=== PATIENT | male | born 1955 | race Caucasian/White ===

== ENCOUNTER 2020-09-08 10:10 | Emergency (ER) | payer OTHER ==
[~2020-09-08] VITALS: Ht 172.7 cm; Wt 79.4 kg
[2020-09-08] MEDS ORDERED: ATOR1TAB21 (10:25)
[2020-09-08] MEDS ORDERED: GABA-282 (10:25)
[2020-09-08] MEDS ORDERED: OMEP-218 (10:25)
[2020-09-08] MEDS ORDERED: NS 1,000 ML IV SCH (10:35)
[2020-09-08 11:06] LABS: BASO % 0.1 % (0.0-1.0); EOS # 0.1 10^3/uL (0.0-0.5); EOS % 1.6 % (0.0-3.0); HEMOGLOBIN 16.9 g/dl (13.5-17.5); LYMPH % 13.3 % (24.0-44.0); MEAN CORPUSCULAR HEMOGLOBIN 31.1 pg (27.0-33.0); MEAN CORPUSCULAR HGB CONC 33.8 g/dl (32.0-36.5); MEAN CORPUSCULAR VOLUME 92.1 fl (80.0-96.0); MONO # 0.9 10^3/uL (0.0-0.8); MONO % 11.1 % (2.0-8.0); NEUTROPHILS # 5.6 10^3/uL (1.5-8.5); NEUTROPHILS % 73.2 % (36.0-66.0); PLATELET COUNT, AUTOMATED 198 10^3/uL (150-450); RED BLOOD COUNT 5.43 10^6/uL (4.30-6.10); WHITE BLOOD COUNT 7.7 10^3/uL (4.0-10.0)
[2020-09-08] MEDS ORDERED: ISOVUE-370 76% 100ML VIAL As Ordered ONE (11:22)
[2020-09-08 11:35] LABS: ALBUMIN 3.5 GM/DL (3.2-5.2); BILIRUBIN,DIRECT 0.2 MG/DL (0.0-0.2); BILIRUBIN,TOTAL 0.7 MG/DL (0.2-1.0); TOTAL PROTEIN 6.7 GM/DL (6.4-8.2)
--- NOTE | 2020-09-08 12:27 | REP ---
INDICATION: abd pain COMPARISON: None. TECHNIQUE: CT Scan of the abdomen and pelvis was performed with intravenous administration of 100 cc of Isovue 370, without oral contrast. Sagittal and coronal reconstruction images are performed. FINDINGS: Lung bases: There is no acute infiltrate. Several small bullae are seen inferiorly in the right lung. There is a small hiatal hernia. Liver: There is a solid mass in the right lobe of the liver anteriorly measuring 3.7 cm in diameter. Gallbladder: Unremarkable. Spleen: Normal. Adrenals: There is non-specific thickening of the bilateral adrenal glands diffusely. Pancreas: Normal. Kidneys: Normal. Small and large bowel: Unremarkable. Free fluid: None. Abdominal aorta: No aneurysm or dissection. Adenopathy: There is a solid mass in the gastrohepatic ligament measuring approximately 5.1 x 4.2 cm. There is an aortocaval lymph node just inferior to that 1.2 cm in short axis. Appendix: Not inflamed. Osseous structures: There are degenerative changes of the spine without compression deformity. Pelvis: No mass. Small bilateral inguinal hernias contain noninflamed fat. IMPRESSION: There is a solid mass in the gastrohepatic ligament measuring approximately 5.1 x 4.2 cm. There is an aortocaval lymph node just inferior to that 1.2 cm in short axis. Solid mass right lobe of liver 3.7 cm. Non-specific thickening of the bilateral adrenal glands diffusely. <Electronically signed by Joe Tomlin > 09/08/20 [id number]
[2020-09-08 13:52] LABS: RSV AMPLIFICATION NEGATIVE (NEGATIVE)
[2020-09-08 14:00] VITALS: BP 128/88
--- NOTE | 2020-09-08 21:23 | ECGEPIP ---
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
== END 2020-09-08 14:19 | disposition short-term general hospital (02) ==
LOC: M ED 10:10
DX: K76.89 Other specified diseases of liver (principal); R19.07 Generalized intra-abdominal and pelvic swelling, mass and lump; K44.9 Diaphragmatic hernia without obstruction or gangrene; E78.5 Hyperlipidemia, unspecified; F17.200 Nicotine dependence, unspecified, uncomplicated; Z79.899 Other long term (current) drug therapy
CPT/HCPCS: 36415; 74177; 80047; 80076; 83605; 83690; 85025; 87631; 93005; 93041; 96360; 96361; 99285; Q9967

== ENCOUNTER → 2020-09-22 | Outpatient (CLI) | payer OTHER ==
[~2020-09-22] MED LIST: ATOR1TAB21 PO; CLOT10TR PO; GABA-282 PO; LOPE1CAP5 PO; MAPA500L PO; OMEP-218 PO; ONDA-83 PO; OXYC1SOL3 PO; PANT40TA29 PO
--- NOTE | 2020-09-22 10:51 | RADONC.CN ---
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 He is seen today for consideration of palliative RT to his large primary tumor and associated regional nodes which are causing pain and dysphagia. Diagnosis/Treatment History Oncologic History Patient noted difficulty swallowing starting in May 2020 Had a delayed outpatient workup. Developed left facial numbness in July 2020. 09/08/20 presented to [facility] ED. CT abdomen showed celiac adenopathy. He was transferred to [facility]. 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 He had a PEG tube placed. 09/21/20 Underwent GammaKnife SRS @ [facility]. Has follow up with Dr. Ordaz there for this and his left facial numbness Recent data: 09/10/20 CT chest abdomen pelvis Large mediastinal adenopathy. Large distal esophageal mass. Large gastrohepatic ligament john mass. Single segment 7 liver lesion. No bone metastases. 09/11/20 MRI brain Multiple subcentimeter brain metastases Left trigeminal meningioma v schwannoma Interval History Reba reports he is able to take soft foods and liquids PO. He is supplementing with TF QID. Weight and energy levels have stabilized. He has back pain, new since this started in May. Is is in the mid-lower back, intermittent, sharp worse with certain movements. Liquid oxycodone is helpful for this. He also has left facial numbness over the past 2 months, was told by PCP he had shingles, no rash however. Dr. Ordaz neurosurgery @ [facility] is following this, as there is a left trigeminal lesion which resembles a meningioma or schwannoma. Past Medical History: HPL Past Surgical History: As above Family History: Father penile cancer Sister breast cancer Social History: 50 pack year former smoker (recent quit) Non-drinker Allergies / Meds Allergies: Coded Allergies: No Known Allergies (Verified Allergy, Unknown, 09/08/20) Home Meds Active Scripts Oxycodone HCl (Oxycodone HCl) 5 Mg/5 Ml Solution, 5 ML PO Q6HP PRN for PAIN LEVEL 5-10 MDD 20 Milliliter(s), #400 ML Prov:ANA LAURA MAYA MD 09/20/20 Reported Medications Acetaminophen (Mapap) 500 Mg/15 Ml Liquid, 15 ML PO Q4HP 09/20/20 Ondansetron HCl (Ondansetron HCl) 4 Mg Tablet, 1 TAB PO Q4HP PRN for nausea/vomiting for 3 Days, #20 TAB 09/20/20 Clotrimazole (Clotrimazole) 10 Mg Anu, 1 TAB PO 5XD for 14 Days, #70 TAB 09/20/20 Pantoprazole Sodium (Pantoprazole Sodium) 40 Mg Tablet.dr, 1 TAB PO BID for 30 Days, #30 TAB 09/20/20 Loperamide HCl (Loperamide) 2 Mg Capsule, 1 CAP PO QID for loose stools for 5 Days, #20 CAP 09/20/20 Gabapentin (Gabapentin) 300 Mg Capsule, 1 TAB PO TID 09/08/20 Omeprazole (Omeprazole) 20 Mg Capsule.dr, 1 TAB PO DAILY 09/08/20 Atorvastatin Calcium (Atorvastatin Calcium) 20 Mg Tablet, 1 TAB PO DAILY 09/08/20 Review of Systems Constitutional: Reports: Fatigue, Weight Loss; Denies: Fever, Weakness Eyes: Denies: Pain HEENT: Reports: Other Symptoms (Left facial numbness); Denies: Head Aches Skin: Denies: Rash Pulmonary: Denies: Dyspnea, Cough Cardiovascular: Denies: Chest Pain, Palpitations Gastrointestinal: Denies: Abdominal Pain, Diarrhea, Constipation, Hematochezia Hematologic: Denies: Bruising, Bleeding Excessively Musculoskeletal: Reports: Back pain; Denies: Neck pain Neurological: Denies: Weakness, Numbness Psych: Reports: Mood Normal; Denies: Thoughts of Self Harm Vital Signs Ht 68" T 97 P 66 RR 18 BP 145/84 O2 99% Pain 0 Fatigue 1 General Exam: Positive: Alert, Cooperative, No Acute Distress Eye Exam: Positive: PERRLA, EOMI ENT EXAM: Positive: Mucous membr. moist/pink, Pharynx Normal Neck Exam: Negative: Thyromegaly, Lymphadenopathy Chest Exam: Positive: Normal air movement; Negative: Rales, Rhonchi, Wheezing Heart Exam: Positive: Rate Normal, Regular Rhythm Abdomen Exam: Positive: Soft, Other (PEG CDI); Negative: Tenderness, Mass Extremity Exam: Negative: Edema, Tenderness Skin Exam: Positive: Nl turgor and temperature; Negative: Rash Neuro Exam: Positive: Normal Gait, Normal Speech; Negative: Cranial Nerves 3-12 NL (Left partial V palsy. Jaw opening closing without deviation contralaterally) Psych Exam: Positive: Mental status NL Diagnostic and Laboratory Diagnostic Review Radiologic images, relevant labs and pathology reports were personally reviewed and discussed with Mr. Mae. Assessment and Plan Impression Mr. Mae is a 64 year old male with a history of former smoker with Davis's esophagus, now with esophageal adenocarcinoma [id number] stage IVB. He is seen today for consideration of palliative RT to his large primary tumor and associated regional nodes which are causing pain and dysphagia. Stage Distal esophageal adenocarcinoma [id number] Stage IVB Performance Status ECOG 0 Plan We had an extensive discussion with Mr. Mae regarding the diagnosis at hand and available therapeutic options. The bulk of his metastatic disease is localized in the central chest and upper abdomen. He has dysphagia and pain from the primary and john masses there. He will be undergoing chemotherapy with Dr. Maya, port placement and the start of treatment is pending. I recommended palliative RT to the chest, I will give 35-40 Gy in 15 fractions with DCA planning and daily CBCT for localization. This will be a large field but with DCA planning we will be able to spare significant dose to the lung, heart and abdominal organs. I discussed that this is highly likely to palliate his pain and dysphagia at the cost of transient moderate dysphagia and odynophagia from ensuing esophagitis. He is willing to accept this risk for the longer term benefits. We discussed the logistics of receiving radiation therapy in detail including the need for a 1-time planning session. I would like this to occur urgently in the next few days, so as to start and complete the bulk of treatment without overlapping with systemic therapy which will potentiate the esophagitis. We reviewed potential toxicities including fatigue, esophagitis, pneumonitis, late stricture and fibrosis. After discussing the risks, benefits and alternatives to radiation therapy, Mr. Mae was amenable to pursuing radiotherapy. All questions were answered to the patient's satisfaction. We instructed the patient that if there were any questions,concerns or changes in clinical status in the interim to contact us. Recommendations Palliative RT 35-40 Gy in 15 fractions with DCA planning and daily CBCT Simulation in the next few days Chemotherapy per Dr. Maya F/u of brain metastases/left trigeminal lesion per [facility] Billing Statement Total time of [46] minutes was spent preparing for the visit [3], obtaining HPI [4], examining the patient [4], reviewing diagnostic tests [8], discussing management options [16], coordinating care [2], and writing this note [9]. IOANA MIMS MD Sep 22, 2020 10:51
== END ==
LOC: M ONCR 08:52
PROVIDERS: ATTEND General Practice
DX: 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, unspecified (principal); C79.31 Secondary malignant neoplasm of brain; E78.5 Hyperlipidemia, unspecified; G50.9 Disorder of trigeminal nerve, unspecified; M54.5 Low back pain; Z72.0 Tobacco use; Z79.899 Other long term (current) drug therapy; Z80.3 Family history of malignant neoplasm of breast; Z80.49 Family history of malignant neoplasm of other genital organs

== ENCOUNTER → 2020-09-30 | Outpatient (CLI) | payer MEDICARE, OTHER ==
[~2020-09-30] MED LIST changes: +COMMENTS; +DEXA2TA PO; +DEXA4TA PO; +ELIQ5TAB PO; +FENT12DI8 TOP; +FENT1PAT25 TOP; +GABA250S6 TF; +LOPE-39 PO; +LORA2CON5 PO; +LORA2CON5 TF; +MUCI1LIQ3 PO; +NYST50SS PO; +OLAN1TAB16 PO; +OMEP-173 PO; +OMEP-173 TF; -OMEP-218 PO; +ONDA4TAB6 PO; +POTA-151 PO; +POTA20EL PO; +PROC10TA5 PO; +SERT-141 PO; +SODI1TAB12 PO; +ZOFR4TAB16 PO; +ZOLP10TA2 PO
== END ==
LOC: M RAD 16:11
PROVIDERS: ATTEND Neurological Surgery
DX: R20.2 Paresthesia of skin (principal)

== ENCOUNTER 2020-10-01 13:48 | Emergency (ER) | payer MEDICARE, OTHER ==
[~2020-10-01] VITALS: Ht 172.7 cm; Wt 76.4 kg
[~2020-10-01 13:48] MED LIST changes: -COMMENTS; -DEXA2TA PO; -DEXA4TA PO; -ELIQ5TAB PO; -FENT12DI8 TOP; -FENT1PAT25 TOP; -GABA250S6 TF; -LOPE-39 PO; -LORA2CON5 PO; -LORA2CON5 TF; -MUCI1LIQ3 PO; -NYST50SS PO; -OLAN1TAB16 PO; -OMEP-173 PO; -OMEP-173 TF; +OMEP-218 PO; -ONDA4TAB6 PO; -POTA-151 PO; -POTA20EL PO; -PROC10TA5 PO; -SERT-141 PO; -SODI1TAB12 PO; -ZOFR4TAB16 PO; -ZOLP10TA2 PO
[2020-10-01] MEDS ORDERED: PROPARACAINE 0.5% OPHTH SOL 15ML XX ONE (14:05)
[2020-10-01] MEDS ORDERED: FLUORESCEIN OPHTH 1 MG STRIP XX ONE (14:05)
[2020-10-01 20:10] VITALS: BP 138/77
== END 2020-10-01 20:30 | disposition left against medical advice (07) ==
LOC: M ED 13:48
DX: H53.8 Other visual disturbances (principal); E78.5 Hyperlipidemia, unspecified; Z79.891 Long term (current) use of opiate analgesic; Z79.899 Other long term (current) drug therapy; Z53.20 Procedure and treatment not carried out because of patient's decision for unspecified reasons; Z93.1 Gastrostomy status

== ENCOUNTER → 2020-10-05 | Outpatient (CLI) | payer OTHER ==
[~2020-10-05] MED LIST changes: +LIDOCAINE 1% MDV 20ML VIAL As Ordered ONE; +MIDAZOLAM INJ 2MG/2ML VIAL (J2250 PER 1MG) As Ordered ONE; +NS 1,000 ML IV SCH; +ceFAZolin 2 GM/D5W 50 ML IV BAG (J0690 PER 500MG) As Ordered ONE; +ceFAZolin SOD 2 GM in IV 1 EA IV ONE; +diphenhydrAMINE 50MG/ML VIAL (J1200) As Ordered ONE; +fentaNYL 100 MCG/2 ML INJECTION (J3010) As Ordered ONE
[2020-10-05 16:00] VITALS: BP 118/78
--- NOTE | 2020-10-06 08:23 | IRHP ---
[facility] IR Pre-Procedure H & P General Date of Service: Oct 05, 2020 Procedure: Same Day Surgery Interval History and Physical I have seen the patient and reviewed last H & P performed within 30 days. There is no significant interval change. History of Present Illness Chief Complaint The patient is a 64-year-old male admitted with a reason for visit of Liver Lesion. PRE-PROCEDURE DIAGNOSIS: Esophageal cancer HEART: Normal rate. LUNGS: Normal breathing at rest. ASA Classification ASA Classification: III-Severe systemic dis. Mallampati Score: II NPO: Yes Problems with prior sedation: No Obstructive Sleep Apnea: No Plan moderate sedation Allergies Coded Allergies: No Known Allergies (Verified Allergy, Unknown, 09/08/20) Home Medications Scheduled Acetaminophen (Mapap), 15 ML PO Q4HP, (Reported) Scheduled PRN Ondansetron HCl (Ondansetron HCl), 1 TAB PO Q4HP PRN for nausea/vomiting, (Reported) Oxycodone HCl (Oxycodone HCl), 5 ML PO Q6HP PRN for PAIN LEVEL 5-10 Discontinued Medications Atorvastatin Calcium (Atorvastatin Calcium), 1 TAB PO DAILY, (Reported) Discontinued Reason: Pt states not taking Clotrimazole (Clotrimazole), 1 TAB PO 5XD, (Reported) Discontinued Reason: Pt states not taking Gabapentin (Gabapentin), 1 TAB PO TID, (Reported) Discontinued Reason: Pt states not taking Loperamide HCl (Loperamide), 1 CAP PO QID, (Reported) Discontinued Reason: Pt states not taking Omeprazole (Omeprazole), 1 TAB PO DAILY, (Reported) Discontinued Reason: Pt states not taking Pantoprazole Sodium (Pantoprazole Sodium), 1 TAB PO BID, (Reported) Discontinued Reason: Pt states not taking VS, I&O, 24H, Fishbone Vital Signs/I&O Vital Signs Date Time Temp Pulse Resp B/P (MAP) Pulse Ox O2 Delivery O2 Flow Rate FiO2 10/05/20 16:00 72 20 98 Room Air TIANNA ZHONG MD Oct 06, 2020 08:23
--- NOTE | 2020-10-10 14:49 | IRPON ---
IR Postoperative Note Date Of Procedure: Oct 05, 2020 Time Of Procedure: 16:00 IR Postoperative Note IR Ultrasound and fluoroscopy guided port placement. IR Ultrasound of the neck. IR Moderate sedation. Clinical indication: Esophageal cancer. Physician: Dr. Lewis. Procedure: The patient was advised of the benefits, risks, and alternatives of the procedure and informed consent was obtained. A time-out was performed with verification of the patient's name, MRN, site of procedure and type of procedure to be performed. The patient was positioned in the supine position on the angiographic table. The site was prepped and draped in the usual sterile fashion. Moderate sedation was performed by the physician including the presence of an independent trained RN who assisted and monitored the patient's level of consciousness and physiologic status. Following the administration of fentanyl and Versed , the physician spent 45 minutes of continuous face to face time with the patient. Ultrasound of the neck reveals a patent and compressible right internal jugular vein. A slab lifting engineer radiograph reveals no gross abnormality. The neck and anterior chest wall were anesthetized with lidocaine. The right internal jugular vein was accessed using a microintroducer needle under ultrasound guidance, via a lateral approach. An 018 wire was advanced into the superior vena cava, the needle was removed and a microsheath was placed. An Amplatz wire was then passed into the inferior vena cava. An incision at the internal jugular vein access site and anterior chest wall were made using a scalpel. An incision was made at the anterior chest wall. A small pocket was created using a combination of blunt and sharp dissection. A tunneling device was then used to pass the catheter from the pocket to the neck puncture site. An 8- [place] Angio Platypus TV Smart power port was then positioned in the pocket. The catheter was then measured and cut. The introducer sheath was exchanged for a peel-away sheath. The catheter was passed through the peel-away sheath into the internal jugular vein and the peel-away sheath was removed. The port tip was positioned at the cavoatrial junction. The port was then accessed with a Duff needle. The port flushes and aspirates well. The puncture site in the neck was closed. The chest wall incision was then closed with 2-0 Vicryl and 4-0 Monocryl. Glue and Steri- Strips were applied. A sterile dressing was then applied. The patient tolerated the procedure well and was returned to the PRU in stable condition. Estimated blood loss: <5 ml. Complications: None. Conclusion: 1. Successful placement of an 8-[place]yr[place]z Angio dynamics Smart power port via the right internal jugular vein. The port is ready for immediate use. 2. Patient to follow up in IR clinic in 2 weeks. Thank you for this referral. TIANNA LEWIS MD Oct 10, 2020 14:49
== END ==
LOC: M IRPRO 12:21
PROVIDERS: ATTEND Radiology Diagnostic Radiology
DX: 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, unspecified (principal); K76.89 Other specified diseases of liver
CPT/HCPCS: 36561; 99152; 99153; C1769; C1788; C1894; J0690; J1200; J1642; J1644; J2250; J3010

== ENCOUNTER 2020-10-14 18:27 | Emergency (ER) | payer OTHER ==
[~2020-10-14] VITALS: Ht 172.7 cm; Wt 73.6 kg
[2020-10-14 18:27] VITALS: BP 113/71
[~2020-10-14 18:27] MED LIST changes: -LIDOCAINE 1% MDV 20ML VIAL As Ordered ONE; -MIDAZOLAM INJ 2MG/2ML VIAL (J2250 PER 1MG) As Ordered ONE; -NS 1,000 ML IV SCH; -ceFAZolin 2 GM/D5W 50 ML IV BAG (J0690 PER 500MG) As Ordered ONE; -ceFAZolin SOD 2 GM in IV 1 EA IV ONE; -diphenhydrAMINE 50MG/ML VIAL (J1200) As Ordered ONE; -fentaNYL 100 MCG/2 ML INJECTION (J3010) As Ordered ONE
[2020-10-14] MEDS ORDERED: FENT12DI8 (18:58)
[2020-10-14] MEDS ORDERED: GABA250S6 (18:58)
[2020-10-14 23:01] LABS: BASO % 0.2 % (0.0-1.0); EOS # 0.2 10^3/uL (0.0-0.5); EOS % 2.5 % (0.0-3.0); HEMATOCRIT 39.5 % (42.0-52.0); HEMOGLOBIN 13.9 g/dl (13.5-17.5); LYMPH # 0.5 10^3/uL (1.5-5.0); LYMPH % 5.2 % (24.0-44.0); MEAN CORPUSCULAR HGB CONC 35.2 g/dl (32.0-36.5); MEAN CORPUSCULAR VOLUME 90.8 fl (80.0-96.0); MONO # 0.7 10^3/uL (0.0-0.8); MONO % 6.9 % (2.0-8.0); NEUTROPHILS % 84.2 % (36.0-66.0); PLATELET COUNT, AUTOMATED 184 10^3/uL (150-450); RED BLOOD COUNT 4.35 10^6/uL (4.30-6.10); WHITE BLOOD COUNT 9.4 10^3/uL (4.0-10.0)
--- NOTE | 2020-10-14 23:24 | REPVR ---
PROCEDURE INFORMATION: Exam: XR Chest Exam date and time: 10/14/2020 10:20 PM Age: 65 years old Clinical indication: Other: Hemoptysis TECHNIQUE: Imaging protocol: XR of the chest. Views: 2 views. COMPARISON: CT CHEST W/ CONTRAST - OUTSIDE PRIOR 09/10/2020 2:43 PM FINDINGS: Tubes, catheters and devices: Right internal jugular Port-A-Cath to the mid superior vena cava since the prior study. Lungs: Unremarkable. No consolidation. Pleural spaces: Unremarkable. No pleural effusion. No pneumothorax. Heart/Mediastinum: Unremarkable. No cardiomegaly. Bones/joints: Unremarkable. IMPRESSION: 1. Right internal jugular Port-A-Cath to the mid superior vena cava since 09/10/2020. 2. Otherwise negative chest. Electronically signed by: Calixto Blum On 10/14/2020 23:24:04 PM
[2020-10-14 23:31] LABS: BLOOD UREA NITROGEN 8 MG/DL (7-18); CALCIUM LEVEL 8.9 MG/DL (8.8-10.2); CARBON DIOXIDE LEVEL 24 MEQ/L (21-32); CHLORIDE LEVEL 96 MEQ/L (98-107); CREATININE FOR GFR 0.46 MG/DL (0.70-1.30); GLOMERULAR FILTRATION RATE > 60.0 (>49); GLUCOSE, FASTING 107 MG/DL (70-100); POTASSIUM SERUM 4.2 MEQ/L (3.5-5.1); SODIUM LEVEL 130 MEQ/L (136-145)
== END 2020-10-15 00:15 | disposition home or self-care (01) ==
LOC: M ED 18:27
DX: R04.2 Hemoptysis (principal); J02.9 Acute pharyngitis, unspecified; 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, unspecified; Z93.1 Gastrostomy status; Z79.899 Other long term (current) drug therapy

== ENCOUNTER 2020-10-20 09:14 | Outpatient (RCR) | payer MEDICARE, OTHER ==
[~2020-10-20 09:14] MED LIST changes: +FENT12DI8; +GABA250S6
[2020-10-24] MEDS ORDERED: OXYC1SOL3 PO (10:04)
== END 2020-10-22 ==
LOC: M ONCR 09:14
PROVIDERS: ATTEND General Practice
DX: C15.5 Malignant neoplasm of lower third of esophagus (principal)

== ENCOUNTER 2020-10-31 09:22 | Outpatient (RCR) | payer MEDICARE, OTHER ==
[~2020-10-31 09:22] MED LIST changes: -FENT12DI8; +FENT12DI8 TOP; -GABA250S6; +GABA250S6 TF
[2020-10-31 11:05] LABS: BASO % 0.3 % (0.0-1.0); EOS # 0.2 10^3/uL (0.0-0.5); EOS % 2.7 % (0.0-3.0); HEMATOCRIT 38.8 % (42.0-52.0); HEMOGLOBIN 13.3 g/dl (13.5-17.5); LYMPH # 0.2 10^3/uL (1.5-5.0); LYMPH % 2.7 % (24.0-44.0); MEAN CORPUSCULAR HGB CONC 34.3 g/dl (32.0-36.5); MEAN CORPUSCULAR VOLUME 93.3 fl (80.0-96.0); MONO # 0.8 10^3/uL (0.0-0.8); MONO % 11.9 % (2.0-8.0); NEUTROPHILS # 5.1 10^3/uL (1.5-8.5); PLATELET COUNT, AUTOMATED 111 10^3/uL (150-450); RED BLOOD COUNT 4.16 10^6/uL (4.30-6.10); WHITE BLOOD COUNT 6.3 10^3/uL (4.0-10.0)
[2020-10-31 11:40] LABS: BLOOD UREA NITROGEN 8 MG/DL (7-18); CREATININE FOR GFR 0.48 MG/DL (0.70-1.30); GLUCOSE, FASTING 101 MG/DL (70-100)
[2020-10-31 11:41] LABS: ALT/SGPT 21 U/L (12-78); BILIRUBIN,TOTAL 0.8 MG/DL (0.2-1.0); CALCIUM LEVEL 8.5 MG/DL (8.8-10.2); CARBON DIOXIDE LEVEL 29 MEQ/L (21-32); CHLORIDE LEVEL 96 MEQ/L (98-107); FREE T4 1.31 NG/DL (0.76-1.46); GLOMERULAR FILTRATION RATE > 60.0 (>49); POTASSIUM SERUM 4.2 MEQ/L (3.5-5.1); SODIUM LEVEL 131 MEQ/L (136-145); THYROID STIMULATING HORMONE 0.394 uIU/ML (0.358-3.740); TOTAL PROTEIN 6.2 GM/DL (6.4-8.2)
[2020-11-02] MEDS ORDERED: ZOFR4TAB16 PO (15:04)
[2020-11-02] MEDS ORDERED: PROC10TA5 PO (15:04)
[2020-11-22] MEDS ORDERED: FENT1PAT25 TOP (10:58)
[2020-11-22] MEDS ORDERED: ZOLP10TA2 PO (10:58)
[2020-11-23] MEDS ORDERED: OMEP-218 PO (13:53)
[2020-11-23] MEDS ORDERED: DEXA4TA PO (13:54)
[2020-12-01] MEDS ORDERED: SERT-141 PO (09:42)
[2020-12-01] MEDS ORDERED: LORA2CON5 PO (09:42)
[2020-12-06] MEDS ORDERED: POTA-151 PO (16:14)
[2020-12-09] MEDS ORDERED: OLAN1TAB16 PO (11:06)
[2020-12-26] MEDS ORDERED: DEXA4TA PO (10:48)
[2020-12-27] MEDS ORDERED: NYST50SS PO (08:33)
[2020-12-27] MEDS ORDERED: DEXA2TA PO (08:33)
[2021-01-02] MEDS ORDERED: LORA2CON5 PO (09:27)
[2021-01-03] MEDS ORDERED: OXYC1SOL3 PO (16:03)
[2021-01-05] MEDS ORDERED: PROC10TA5 PO (14:44)
[2021-01-09] MEDS ORDERED: OLAN1TAB16 PO (10:36)
== END 2020-11-22 ==
LOC: M ONCR 09:22
PROVIDERS: ATTEND General Practice
DX: C15.5 Malignant neoplasm of lower third of esophagus (principal); R10.11 Right upper quadrant pain; Z79.899 Other long term (current) drug therapy

== ENCOUNTER → 2020-11-15 | Outpatient (CLI) | payer MEDICARE, OTHER ==
[~2020-11-15] MED LIST changes: +DEXA4TA PO; +FENT50DI5; +PROC10TA4 PO; +PROHANCE 279.3MG/ML 15ML VIAL As Ordered ONE; +ZOFR4TAB16 PO; +ZOLP10TA2
--- NOTE | 2020-11-22 13:12 | REPVR ---
PROCEDURE INFORMATION: Exam: MR Head Without and With Contrast Exam date and time: 11/15/2020 4:13 PM Age: 65 years old Clinical indication: Condition or disease; Brain lesion; Patient HX: Esophageal CA, ? mets to cavernous sinus; Additional info: Secondary malignant neoplasm of brain TECHNIQUE: Imaging protocol: MR of the head without and with intravenous contrast. Contrast material: PROHANCE; Contrast volume: 13 ml; Contrast route: INTRAVENOUS (IV); COMPARISON: No relevant prior studies available. FINDINGS: Brain: There are multiple lesions within the supratentorial and infratentorial brain. There are cystic nonenhancing lesions. There are also enhancing lesions present. There is left cavernous sinus lesion extending over free margin of tentorium into the prepontine space along cisternal course trigeminal nerve. There are several enhancing cerebellar parenchymal lesions including two in anterior inferior aspect of right cerebellar hemisphere measuring approximately 2 mm and one in inferior posteromedial aspect of left cerebellar hemisphere measuring 5 mm. The left cerebellar lesion previously measured 1.7 mm. The 2 right cerebellar lesions were not previously identified. There was a more posteroinferior right cerebellar punctate enhancing lesion on prior study which currently shows a nodular area of increased signal on the T2 weighted images but no longer shows contrast enhancement. The left posteroinferior cerebellar cystic nonenhancing lesion is larger measuring 6 mm and previously 4 mm. There is a small area of increased T2 and FLAIR signal in the region of the right superior vermis which shows restricted diffusion. There is subtle contrast enhancement in this location which may actually be extra-axial within sulci along the surface of the superior vermis and related to subarachnoid tumor. The left cavernous sinus lesion as increased in size. Cavernous portion currently measures 16 mm x 11 mm and previously 13 mm x 8 mm. This extends inferiorly toward foramen ovale as well as into the posterior aspect of foramen rotundum concerning for perineural extension of tumor. The superior inferior dimension on coronal images has significantly increased previously 9 mm and currently 23 mm. The portion within the prepontine cistern currently measures 18 mm x 13.5 mm and previously 11 mm x 7 mm. This extends to the nerve root entry zone of the anterior wilfredo. There is associated mass effect on anterolateral aspect of left side of wilfredo. There is T2 prolongation again seen along anterior right parietal sulcus and there is linear enhancement extending from the sulcus to the ependymal margin of the right lateral ventricle and this may be subarachnoid tumor extending along a perivascular space. There is a new area of T2 prolongation along the posteromedial aspect of the right central sulcus without evidence of definite abnormal enhancement. There is a cystic lesion in the left superior precentral region slightly increase in size measuring 5.4 mm and previously 4.4 mm. This previously showed a punctate area of enhancement which is no longer appreciated. There is a punctate enhancing lesion again seen in left frontal lobe at level of frontal horn of lateral ventricles which is slightly smaller than comparison study. On coronal postcontrast images, there is concern for new enhancement around the patient's optic chiasm which also could suggest subarachnoid disease. There is also evidence of probable subtle enhancement in several posterior fossa and supratentorial sulci and along the surface of the cerebellar hemispheres also concerning for subarachnoid extension. Patient previously showed enhancing lesion; There are several areas of additional restricted diffusion within the brain bilaterally. These include small right anterior frontal, right frontal parietal region in area of new T2 prolongation, right parietal sulcus, and left occipital lobe. This could be restricted diffusion associated with small areas of acute infarct and given proximity to subarachnoid disease, this could be tumor related. Cerebral ventricles: No hydrocephalus. Bones/joints: There is low signal in partially visualized C3 vertebral body and bony metastatic disease not excluded. Paranasal sinuses: Normal as visualized. No acute sinusitis. Mastoid air cells: No significant mastoid effusion. IMPRESSION: Progression of metastatic disease as described. 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 Several new areas of restricted diffusion may be acute infarcts associated with leptomeningeal disease. Electronically signed by: Colleen Avendaño On 11/22/2020 13:12:14 PM
== END ==
LOC: M RAD 14:01
PROVIDERS: ATTEND Radiology Radiation Oncology
DX: C79.31 Secondary malignant neoplasm of brain (principal)

== ENCOUNTER 2020-12-05 11:02 | Observation (INO) | payer MEDICARE, OTHER ==
[~2020-12-05] VITALS: Ht 172.7 cm; Wt 61.6 kg
[~2020-12-05 11:02] MED LIST changes: -FENT50DI5; +FENT50DI5 TOP; +LORA2CON5 PO; -PROHANCE 279.3MG/ML 15ML VIAL As Ordered ONE; +SERT-141 PO; +SODIUM CHLORIDE 0.9% INJ 10 ML SYR IV SCH; -ZOLP10TA2; +ZOLP10TA2 PO
[2020-12-05] MEDS ORDERED: NS 1,000 ML IV ONE (13:15)
[2020-12-05 13:23] LABS: BASO % 0.3 % (0.0-1.0); EOS # 0.1 10^3/uL (0.0-0.5); EOS % 1.4 % (0.0-3.0); HEMATOCRIT 33.6 % (42.0-52.0); HEMOGLOBIN 11.6 g/dl (13.5-17.5); LYMPH # 0.8 10^3/uL (1.5-5.0); MEAN CORPUSCULAR HGB CONC 34.5 g/dl (32.0-36.5); MEAN CORPUSCULAR VOLUME 95.5 fl (80.0-96.0); MONO # 0.9 10^3/uL (0.0-0.8); MONO % 13.1 % (2.0-8.0); NEUTROPHILS # 5.2 10^3/uL (1.5-8.5); NEUTROPHILS % 72.2 % (36.0-66.0); PLATELET COUNT, AUTOMATED 146 10^3/uL (150-450); RED BLOOD COUNT 3.52 10^6/uL (4.30-6.10); WHITE BLOOD COUNT 7.1 10^3/uL (4.0-10.0)
--- NOTE | 2020-12-05 13:31 | REP ---
INDICATION: Syncope/near-syncope. COMPARISON: 10/14/2020 the only prior TECHNIQUE: Portable FINDINGS: The tip of the MediPort device is unchanged remaining in the superior vena cava. Lung torres are clear and stable. No acute patchy parenchymal opacities or pleural effusions have developed. The cardiomediastinal silhouette is unchanged and again seen to be within normal limits. The osseous structures are stable and intact. The technique utilized in obtaining the radiograph has magnified the cardiac silhouette and attenuated the interstitial markings. IMPRESSION: No acute cardiopulmonary disease or significant change compared to the prior exam. <Electronically signed by Eric Byrd > 12/05/20 [id number]
[2020-12-05 13:52] LABS: ALT/SGPT 24 U/L (12-78); BLOOD UREA NITROGEN 11 MG/DL (7-18); CALCIUM LEVEL 8.7 MG/DL (8.8-10.2); CARBON DIOXIDE LEVEL 26 MEQ/L (21-32); CHLORIDE LEVEL 95 MEQ/L (98-107); GLOMERULAR FILTRATION RATE > 60.0 (>49); GLUCOSE, FASTING 91 MG/DL (70-100); POTASSIUM SERUM 4.1 MEQ/L (3.5-5.1); SODIUM LEVEL 130 MEQ/L (136-145)
[2020-12-05 13:53] LABS: ALBUMIN 2.8 GM/DL (3.2-5.2); BILIRUBIN,DIRECT 0.3 MG/DL (0.0-0.2); BILIRUBIN,TOTAL 0.8 MG/DL (0.2-1.0); CK-MB VALUE MASS < 1.0 NG/ML (<3.6); CPK CREATINE PHOSPHOKINASE 28 U/L (39-308); FREE T4 1.28 NG/DL (0.76-1.46); MAGNESIUM LEVEL 2.1 MG/DL (1.8-2.4); MB/CK RELATIVE INDEX 3.57 (< OR =4); THYROID STIMULATING HORMONE 0.654 uIU/ML (0.358-3.740); TOTAL PROTEIN 5.9 GM/DL (6.4-8.2); TROPONIN I < 0.02 NG/ML (< 0.10)
[2020-12-05] MEDS ORDERED: dexameTHASONE 20MG/5ML VIAL (J1100 PER 1MG) IV ONE (15:55)
[2020-12-05] MEDS ORDERED: diazePAM 2 MG TAB PEG ONE (15:55)
[2020-12-05 15:57] LABS: RSV AMPLIFICATION NEGATIVE (NEGATIVE)
[2020-12-05] MEDS ORDERED: oxyCODONE 5MG TAB PEG PRN (16:00)
[2020-12-05] MEDS ORDERED: ONDANSETRON 4MG/2ML VIAL IV PRN (16:00)
[2020-12-05] MEDS ORDERED: COMMENTS (16:40)
[2020-12-05] MEDS ORDERED: OMEP-218 TF (16:40)
[2020-12-05] MEDS ORDERED: ZOLP10TA2 PO (16:40)
[2020-12-05] MEDS ORDERED: HOME MED LIST COMPLETE! XX SCH (16:45)
[2020-12-05] MEDS: D5W/0.9% SODIUM CHLORIDE 1,000 ML IV SCH (16:54)
[2020-12-05] MEDS ORDERED: PILL CUTTER 1 EACH XX ONE (17:16)
--- NOTE | 2020-12-05 19:47 | ECGEPIP ---
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
[2020-12-05] MEDS ORDERED: fentaNYL 50 MCG/HR PATCH TOP SCH (20:00)
[2020-12-05] MEDS ORDERED: FENTANYL REMOVAL DOCUMENTATION MISC XX SCH (20:00)
[2020-12-05 20:27] VITALS: BP 125/81
[2020-12-05] MEDS ORDERED: GABAPENTIN 100 MG CAP PEG SCH (21:00)
[2020-12-06] MEDS: D5W/0.9% SODIUM CHLORIDE 1,000 ML IV SCH ×2 (05:24→11:55)
[2020-12-06 06:00] VITALS: BP 137/78
[2020-12-06 06:34] LABS: HEMATOCRIT 35.8 % (42.0-52.0); HEMOGLOBIN 12.4 g/dl (13.5-17.5); MEAN CORPUSCULAR HEMOGLOBIN 33.1 pg (27.0-33.0); MEAN CORPUSCULAR HGB CONC 34.6 g/dl (32.0-36.5); MEAN CORPUSCULAR VOLUME 95.5 fl (80.0-96.0); PLATELET COUNT, AUTOMATED 166 10^3/uL (150-450); RED BLOOD COUNT 3.75 10^6/uL (4.30-6.10); WHITE BLOOD COUNT 6.9 10^3/uL (4.0-10.0)
[2020-12-06 06:58] LABS: BLOOD UREA NITROGEN 9 MG/DL (7-18); CALCIUM LEVEL 8.9 MG/DL (8.8-10.2); CARBON DIOXIDE LEVEL 23 MEQ/L (21-32); CHLORIDE LEVEL 100 MEQ/L (98-107); CREATININE FOR GFR 0.61 MG/DL (0.70-1.30); GLOMERULAR FILTRATION RATE > 60.0 (>49); GLUCOSE, FASTING 125 MG/DL (70-100); POTASSIUM SERUM 3.4 MEQ/L (3.5-5.1); SODIUM LEVEL 132 MEQ/L (136-145)
[2020-12-06] MEDS: SODIUM CHLORIDE 0.9% INJ 10 ML SYR IV SCH ×2 (08:39→09:00)
[2020-12-06] MEDS ORDERED: SERTRALINE HCL 50 MG TAB PEG SCH (09:00)
[2020-12-06] MEDS ORDERED: ENOXAPARIN 40MG/0.4ML SYRINGE (J1650 PER 10MG) SC SCH (09:00)
[2020-12-06] MEDS ORDERED: OMEPRAZOLE SUSPENSION 20MG 10ML ORAL SYRINGE GT SCH (09:00)
--- NOTE | 2020-12-06 09:18 | HPE ---
HISTORY AND PHYSICAL DATE OF ADMISSION: 12/05/2020 PRINCIPAL DIAGNOSIS: Intractable vertigo, brain metastases. 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 The tumor is PD-L1 positive, HER-2/nick negative. He follows with Dr. Tia Barreto. 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 He is scheduled to complete his radiation therapy this week. He was previously treated with FOLFOX chemotherapy with nivolumab currently on hold. MEDICAL HISTORY: His past history shows GERD. SURGICAL HISTORY: PEG tube. FAMILY HISTORY: Sister with breast cancer. Father had penile cancer. SOCIAL HISTORY: Smoked up until diagnosis 09/12/2020, about a 50 pack year history. No alcohol use. He is , two adult children. REVIEW OF SYSTEMS: He has been dizzy, weak and lightheaded. No fevers or chills, night sweats, headache, photophobia. MEDICATIONS: 1. Sertraline 50 mg daily. 2. Ativan 2 mg/mL, 0.25 mL four times daily as needed for anxiety. 3. Dexamethasone 4 mg daily. 4. Omeprazole 20 mg daily. 5. Phenergan 10 mg daily. 6. Zofran 4 mg or 8 mg every 12 hours as needed for nausea. 7. Oxycodone 5 mg/5 mL, 5 mg every 6 hours as needed. 8. Gabapentin 250 mg per feeding tube once daily at bedtime. 9. Fentanyl 50 mcg per 72 hour patch every 3 days. ALLERGIES: None known. PHYSICAL EXAMINATION: VITAL SIGNS: Per flow sheet. He was reportedly orthostatic in the Emergency Room. It looks like he was 79/51 standing, 99/65 supine, pulse in the 70s, 99% O2 saturation. GENERAL APPEARANCE: He looks moderately ill and older than stated age. HEENT: Pupils equal, round, reactive to light. Tympanic membranes (TMs) and oropharynx benign. NECK: No masses. LUNGS: Clear. HEART: Regular rate and rhythm. ABDOMEN: Soft, nontender. He has a feeding tube in. EXTREMITIES: No clubbing, cyanosis, or edema. Coordination is decreased with [id number] testing left worse than right. Normal strength in upper and lower extremities. I did not test his gait. He had nystagmus on the left. LABS: White count 7.1, hemoglobin 11.6, platelets 146. Sodium 130, potassium 4.1, BUN 11, creatinine 0.6, glucose 91. Thyroid functions are normal. It should be noted he has chronic hyponatremia probably from the Sertraline. His sodium generally is around 130 over the last three months. Chest x-ray showed no active disease. Did not do brain imaging. He had an MRI scan two weeks ago on 11/22. It showed progression of metastatic disease, a combination of parenchymal and subarachnoid tumor with leptomeningeal tumor dissemination with several areas restricted diffusion ____ acute infarcts associated with leptomeningeal disease. IMPRESSION AND PLAN: 1. Intractable vertigo. He has been given IV fluids. He already feels better. We will admit him on observation and rehydrate, give sedatives to reduce his vertigo. I would augment his dexamethasone in the face of suspected renal insufficiency. 2. Hyponatremia. This is chronic, asymptomatic and probably related to his SSRI therapy. 3. Esophageal cancer. Treatment per Dr. Barreto. 4. Brain metastases. He is due to have whole brain radiation tomorrow. We will consult Radiation Oncology so this can be continued. The patient reaffirmed FULL CODE STATUS to the ER staff today.
[2020-12-06 14:00] VITALS: BP 123/76
[2020-12-06] MEDS ORDERED: POTASSIUM CHLORIDE 10MEQ SR TABLET PO ONE (16:00)
[2020-12-06] MEDS ORDERED: ZOFR4TAB16 PO (16:13)
[2020-12-06] MEDS ORDERED: POTA20TA6 PO (16:14)
[2020-12-06] MEDS ORDERED: SODI1TAB12 PO (16:15)
[2020-12-06] MEDS ORDERED: POTA20EL PO (16:20)
--- NOTE | 2020-12-06 16:22 | DS.PDOC ---
Discharge Summary General Date of Admission Dec 05, 2020 at 11:03 Discharge Summary PROCEDURES PERFORMED DURING STAY: [None]. ADMITTING DIAGNOSES: 1. . DISCHARGE DIAGNOSES: 1. . COMPLICATIONS/CHIEF COMPLAINT: Brain Metastases,Vertigo. HISTORY OF PRESENT ILLNESS: . HOSPITAL COURSE: . DISCHARGE MEDICATIONS: Please see below. ALLERGIES: Please see below. PHYSICAL EXAMINATION ON DISCHARGE: VITAL SIGNS: Please see below. GENERAL: HEENT: NECK: CARDIOVASCULAR EXAMINATION: RESPIRATORY EXAMINATION: ABDOMINAL EXAMINATION: EXTREMITIES: SKIN: NEUROLOGICAL EXAMINATION: PSYCHIATRIC EXAMINATION: LABORATORY DATA: Please see below. IMAGING: PROGNOSIS: ACTIVITY: [As tolerated]. DIET: DISCHARGE PLAN: DISPOSITION: . DISCHARGE INSTRUCTIONS: 1. . ITEMS TO FOLLOWUP ON ON OUTPATIENT: 1. . DISCHARGE CONDITION: [Stable]. TIME SPENT ON DISCHARGE: minutes. Vital Signs/I&Os Vital Signs Date Time Temp Pulse Resp B/P (MAP) Pulse Ox O2 Delivery O2 Flow Rate FiO2 12/06/20 14:00 97.9 69 18 123/76 (92) 97 Room Air I&O- Last 24 Hours up to 6 AM 12/06/20 06:00 Intake Total 2300 ml Output Total 500 ml Balance 1800 ml Laboratory Data Labs 24H Laboratory Tests 2 12/06/20 06:12: Nucleated Red Blood Cells % (auto) 0.0, Anion Gap 9, Glomerular Filtration Rate > 60.0, Calcium Level 8.9 CBC/BMP Laboratory Tests 12/06/20 06:12 Discharge Medications Scheduled Dexamethasone (Dexamethasone) 4 Mg Tablet, 4 MG PO DAILY Gabapentin (Gabapentin) 250 Mg/5 Ml Solution, 5 ML TF QHS, (Reported) Omeprazole (Omeprazole) 20 Mg Capsule.dr, 20 MG TF QHS, (Reported) PUT CONTENTS OF CAPSULE IN APPLESAUCE Potassium Chloride (Potassium Chloride) 20 Meq/15 Ml Liquid, 15 ML PO BID Prochlorperazine Maleate (Prochlorperazine Maleate) 10 Mg Tablet, 10 MG PO Q6H Sertraline Hcl (Sertraline HCl) 50 Mg Tablet, 1 TAB PO DAILY Sodium Chloride (Sodium Chloride) 1 Gm Tablet, 1 TAB PO BID Zolpidem Tartrate (Zolpidem Tartrate) 10 Mg Tablet, 10 MG PO QHS, (Reported) fentaNYL (fentaNYL) 50 Mcg Patch.td72, 1 PATCH TOP Q3RD, (Reported) DOES NOT HAVE PATCH ON 12/05/20 Scheduled PRN Acetaminophen (Mapap) 500 Mg/15 Ml Liquid, 15 ML PO Q4H PRN for PAIN LEVEL 1-4, (Reported) Lorazepam (Lorazepam) 2 Mg/1 Ml Oral.conc, 0.25 ML PO QIDP PRN for ANXIETY/AGITA TION Ondansetron HCl (Zofran) 4 Mg Tablet, 8 MG PO Q12HP PRN for NAUSEA Ondansetron HCl (Zofran) 4 Mg Tablet, 4 MG PO Q6-8HP PRN for nausea/vomiting Oxycodone HCl (Oxycodone HCl) 5 Mg/5 Ml Solution, 5 ML PO Q6HP PRN for PAIN LEVEL 5-10 Miscellaneous Medications [Comments] , (Reported) PT HAS FEEDING TUBE. Allergies Coded Allergies: No Known Allergies (Verified Allergy, Unknown, 09/08/20) VEE CHUN MD Dec 06, 2020 16:22
[2020-12-06] MEDS ORDERED: POTASSIUM CHLORIDE 10% LIQ 20 MEQ/15 ML UDC PO ONE (16:50)
== END 2020-12-06 18:00 | disposition home health service (06) ==
LOC: M ED 11:02 → M ED INP 11:03 → ENRESERV 16:30 → M MSPAV 20:27
PROVIDERS: ADMIT Family Medicine; ATTEND Family Medicine
DX: R42 Dizziness and giddiness (principal); C79.31 Secondary malignant neoplasm of brain; C78.7 Secondary malignant neoplasm of liver and intrahepatic bile duct; 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, unspecified; E87.1 Hypo-osmolality and hyponatremia; Z92.3 Personal history of irradiation; Z92.21 Personal history of antineoplastic chemotherapy; Z87.891 Personal history of nicotine dependence; Z79.899 Other long term (current) drug therapy; K21.9 Gastro-esophageal reflux disease without esophagitis; Z93.1 Gastrostomy status
CPT/HCPCS: 36415; 71045; 80048; 80076; 82550; 82553; 83605; 83735; 84439; 84443; 84484; 85025; 85027; 87631; 93005; 93041; 94760; 96361; 96372; 96374; 96375; 97161; 97165; 97530; 99285; G0378; J1100; J1642; J1650; J2405

== ENCOUNTER → 2020-12-07 | Outpatient (CLI) | payer MEDICARE, OTHER ==
[~2020-12-07] MED LIST changes: +COMMENTS; +DEXA2TA PO; +NYST50SS PO; +OLAN1TAB16 PO; +OMEP-218 TF; +POTA20EL PO; +POTA20TA6 PO; +SODI1TAB12 PO; -SODIUM CHLORIDE 0.9% INJ 10 ML SYR IV SCH
== END ==
LOC: M ONCR 15:18
PROVIDERS: ATTEND General Practice
DX: C15.5 Malignant neoplasm of lower third of esophagus (principal); Z53.9 Procedure and treatment not carried out, unspecified reason

== ENCOUNTER 2020-12-13 08:38 | Outpatient (RCR) | payer MEDICARE, OTHER ==
--- NOTE | 2020-12-01 09:46 | RADENCPD ---
Date/Time of Encounter Date of Encounter: Dec 01, 2020 Time of Encounter: 09:43 Encounter Spoke to Reba today after RT. He is struggling with anxiety and low energy. His and he believe he is dehydrated. PO intake down recently. Same with per PEG intake. Cap refill delayed, skin lax. UOP reduced per . I will arrange for 2L NS IVF and 8 mg decadron today. I encouraged more frequent hydration at home PO and per PEG minimum 64 oz daily. They will try to get fluids in more effectively. For his anxiety I discussed starting an SSRI which he is agreeable to. In the short term I will also give a small dose of ativan which he can use QID as needed. Plan: IVF Decadron Sertraline 50 mg daily Lorazepam liquid 0.5 mg QID PRN Stop IOANA Gilbert MD Dec 01, 2020 09:46
[2020-12-01] MEDS: NS 1,000 ML IV SCH ×2 (10:02→11:52)
[~2020-12-13 08:38] MED LIST changes: -DEXA2TA PO; -NYST50SS PO; +ONDANSETRON 4 MG ORAL DISINTEGRATING TAB PO ONE; +dexameTHASONE 4 MG/ML 1ML VIAL (J1100 PER 1MG) IV ONE
== END 2020-12-22 ==
LOC: M ONCR 08:38
PROVIDERS: ATTEND General Practice
DX: C79.31 Secondary malignant neoplasm of brain (principal)
CPT/HCPCS: 77280; 77290; 77307; 77334; 77336; 77412; 77417; G0463; J1100

== ENCOUNTER → 2020-12-20 | Outpatient (CLI) | payer MEDICARE, OTHER ==
[~2020-12-20] MED LIST changes: -ONDANSETRON 4 MG ORAL DISINTEGRATING TAB PO ONE; -dexameTHASONE 4 MG/ML 1ML VIAL (J1100 PER 1MG) IV ONE
--- NOTE | 2020-12-20 15:03 | RADENCPD ---
Date/Time of Encounter Date of Encounter: Dec 20, 2020 Time of Encounter: 15:01 Encounter Reba came in for a brief follow up today to assess his progress s/p WBRT. He reports he is feeling better overall, less fatigued, no VERA, no N,V, no pain. Notes cranial neuropathies have stabilized. He is tolerating TF well. I discussed leaving him on the current 4 mg daily decadron and seeing him back in 2 weeks at which time if improvement continues, we can consider a slow taper. He will be restarting chemotherapy in the meantime. IOANA MIMS MD Dec 20, 2020 15:03
== END ==
LOC: M ONCR 14:39
PROVIDERS: ATTEND General Practice
DX: C15.5 Malignant neoplasm of lower third of esophagus (principal); Z92.3 Personal history of irradiation

== ENCOUNTER → 2020-12-27 | Outpatient (CLI) | payer MEDICARE, OTHER ==
[~2020-12-27] MED LIST changes: +DEXA2TA PO; +NYST50SS PO
== END ==
LOC: M ONCR 10:37
PROVIDERS: ATTEND General Practice
DX: C15.5 Malignant neoplasm of lower third of esophagus (principal); C78.7 Secondary malignant neoplasm of liver and intrahepatic bile duct; C79.31 Secondary malignant neoplasm of brain; R59.1 Generalized enlarged lymph nodes; Z92.21 Personal history of antineoplastic chemotherapy; Z92.3 Personal history of irradiation

== ENCOUNTER → 2021-01-03 | Outpatient (CLI) | payer MEDICARE, OTHER ==
[~2021-01-03] MED LIST changes: +ELIQ5TAB PO; +LOPE-39 PO; +LORA2CON5 TF; +MUCI1LIQ3 PO; +ONDA4TAB6 PO
--- NOTE | 2021-01-03 16:07 | RADENCPD ---
Date/Time of Encounter Date of Encounter: Jan 03, 2021 Time of Encounter: 16:04 Encounter Reba came in for a status check today. He reports he feels generally well except for diarrhea associated with tube feeds and mid back pain which is new in the past week. On exam he is alert and oriented. His BP is 86/54. O2 93% on RA He is non-tender to palpation in the mid back Assessment: Dehydration from GI loss and low intake Plan: 2L IVF tomorrow. Increase FWF with feeds, aim for 1L tonight. Will start Imodium 2 tabs after each diarrhea bout. Will increase short acting oxycodone to 15 mg QIDP for back pain. Continue decadron 2 mg daily. Will refer to [facility] for ON feeding supplies as he might benefit from continuous feeding QHS as he continues to lose weight. IOANA MIMS MD Jan 03, 2021 16:07
--- NOTE | 2021-01-05 11:02 | RADENCPD ---
Date/Time of Encounter Date of Encounter: Jan 05, 2021 Time of Encounter: 10:54 Encounter Christen called this AM to report that Reba had additional diarrhea and emesis last night. This AM his BP was 73/46, P 45, O2 80% on RA and he was lethargic. He received IVF 2L yesterday in clinic as well as aloxi. He has been using imodium with some positive effect. Because of the unstable vitals and ongoing GI loss, I have advised them to present to the ED for evaluation. Christen and Reba agreed to come in. IOANA MIMS MD Jan 05, 2021 11:02
== END ==
LOC: M ONCR 14:31
PROVIDERS: ATTEND General Practice
DX: E86.0 Dehydration (principal); C15.5 Malignant neoplasm of lower third of esophagus; R19.7 Diarrhea, unspecified; M54.6 Pain in thoracic spine

== ENCOUNTER 2021-01-05 11:14 | Inpatient (IN) | payer MEDICARE, OTHER ==
[~2021-01-05] VITALS: Ht 172.7 cm; Wt 59.4 kg
[~2021-01-05 11:14] MED LIST changes: +ASPIRIN 81MG ENTERIC TABLET PO SCH; -ELIQ5TAB PO; -LOPE-39 PO; -LORA2CON5 TF; -MUCI1LIQ3 PO; -ONDA4TAB6 PO
--- OUTSIDE RECORDS SUMMARY | 2021-01-05 11:20 | CCD | Summary of Care ---
Author Author [facility] Organization [facility] Address Unknown Phone Unavailable Care Team Providers Care Therapeutic Recreation Director Name Role Phone Andrew Wade MD, Rashaun Ayala PCP [phone] Reason for Visit * Reason Comments Follow-up Encounter Details Care Team Description Date Type Department Mix, Ken Tolentino MD [address] [place] [address] Brain metastases (Primary Dx) 11/22/2020 Telemedicine [facility] RADIATION ONCOLOGY [address] [facility] [address] [place] [address] Allergies No Known Active Allergiesdocumented as of this encounter (statuses as of 11/23/2020) Medications End Date Status Medication Sig Dispensed Refills Start Date Active Atorvastatin Calcium 20 Take 20 mg by 0 MG Oral Tablet (LIPITOR) mouth daily Active Gabapentin 300 MG Oral Take 300 mg 0 Capsule (NEURONTIN) by mouth Three times daily as needed Active Biofreeze 4 % External Apply 0 Gel (Menthol (Topical topically as Analgesic)) needed 09/14/2021 Active Pantoprazole Sodium 40 MG Take 1 tablet 60 tablet 11 Oral Tablet Delayed by mouth Two 1 Release (PROTONIX) Times Daily Active Gabapentin 250 MG/5ML Take by mouth 0 Oral Solution (NEURONTIN) Three times daily Active oxyCODONE HCl 5 MG/5ML Take by mouth 0 Oral Solution every 4 (ROXICODONE) (four) hours as needed for Pain Active fentaNYL Place 1 patch 0 onto the skin every 3 (three) days Active Zolpidem Tartrate 10 MG Take 10 mg by 0 Oral Tablet (AMBIEN) mouth nightly as needed for Sleep Active LORazepam 0.5 MG Oral Take 0.5 mg 0 Tablet (ATIVAN) by mouth every 6 (six) hours as needed for Anxiety documented as of this encounter (statuses as of 11/23/2020) Active Problems Problem Noted Date Malignant neoplasm of lower third of esophagus 09/28 Cancer Staging: Clinical: Stage IVB (cT 3, cN3, cM1) - Unsigned Numbness and tingling of left side of face Esophageal mass 09/13/2020 Gastric mass 09/08/2020 Liver mass 09/08/2020 Current smoker 09/08/2020 Unintentional weight loss 09/08/2020 Postherpetic neuralgia 09/08/2020 Intraabdominal mass 09/08/2020 Palliative care encounter Overview: Formatting of this note might be differ ent from the original. Decision making capacity: September 12, 2020 has capacity for medical decision making Goals of care: continue work up and nadya atment for cancer, all medical interventions Code status: full code, his family know s his wishes HCP: 09/12/2020 Primary: Winter, Secondary: daughter Caroline Solares, , son Alex Mae [phone] MOLST on file: no Short Social History: He lives with his , they have 1 son who lives with them and 1 daughter who resides ne ar them. He has several siblings, has 1 surviving sibling, others d. 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 Brain metastases Dysphagia documented as of this encounter (statuses as of 11/23/2020) Immunizations Name Administration Dates Next Due Pfizer SARS-CoV-2 06/14/2020, 05/24/2020 Vaccination documented as of this encounter Social History Date Tobacco Use Types Packs/Day Years Used Quit: 07/23/2020 Former Smoker Smokeless Tobacco: Never Used Comments Alcohol Use Standard Drinks/Week Not Currently 0 (1 standard drink = 0.6 o z pure alcohol) Sex Assigned at Date Recorded Not on file Industry Job Start Date Occupation Not on file Not on file Not on file documented as of this encounter Last Filed Vital Signs Reading Time Taken Comments Vital Sign 109/84 11/22/2020 8:54 AM EDT Blood Pressure 90 11/22/2020 8:54 AM EDT Pulse 35.8 C (96.4 F) 11/22/2020 8:54 AM EDT Temperature - - Respiratory Rate - - Oxygen Saturation - - Inhaled Oxygen Concentration 65.8 kg (145 lb) 11/22/2020 8:54 AM EDT Weight - - Height 22.05 09/21/2020 6:22 AM EDT Body Mass Index documented in this encounter Progress Notes * Ken Brooks MD - 11/22/2020 9:00 AM EDT Images from the original note were not included. This is a telephonic visit which was performed without the use of video technolo gy due to patient inability to connect with video. The patient was informed of t he risks including security breach, technological failure, inability to perform a physical exam which could delay or prevent an accurate diagnosis, and potentia l complications from treatment decisions rendered over a telephonic platform. Th e patient understands and consented to the use of a telephonic visit/telephone c all. Time spent on the telephonic visit today: 25 minutes Radiation Oncology Outpatient Follow-up Visit Report Subjective: Diagnosis and Stage: Stage IV esophageal cancer with brain metastases Prior Therapy: Gamma Knife SRS to 4 lesions on 09/21/20 Palliative RT to esophagus (Dr. Valladares in [place]) Recently started chemotherapy with Dr. Barreto Performance status: (2) Ambulatory and capable of self care, unable to carry ou t work activity, up and about > 50% or waking hours HPI: Reba is a 65 y/o male s/p GK SRS as noted above for marv metastases from es ophageal cancer. Has also received palliative esophageal RT, and started chemot herapy with Dr. Barreto. He returns today for short interval f/u after updated MRI. He denies VERA. Has h ad some occasional nausea. Did have a fall last week. Continues to have facial numbness. Medications: Current Outpatient Medications Medication Sig Dispense Refill fentaNYL Place 1 patch onto the skin every 3 (three) days Gabapentin 250 MG/5ML Oral Solution (NEURONTIN) Take by mouth Three times daily LORazepam 0.5 MG Oral Tablet (ATIVAN) Take 0.5 mg by mouth every 6 (six) hours as needed for Anxiety oxyCODONE HCl 5 MG/5ML Oral Solution (ROXICODONE) Take by mouth every 4 ( four) hours as needed for Pain Pantoprazole Sodium 40 MG Oral Tablet Delayed Release (PROTONIX) Take 1 t ablet by mouth Two Times Daily 60 tablet 11 Zolpidem Tartrate 10 MG Oral Tablet (AMBIEN) Take 10 mg by mouth nightly as needed for Sleep Atorvastatin Calcium 20 MG Oral Tablet (LIPITOR) Take 20 mg by mouth chucho y Biofreeze 4 % External Gel (Menthol (Topical Analgesic)) Apply topically as needed Gabapentin 300 MG Oral Capsule (NEURONTIN) Take 300 mg by mouth Three felix es daily as needed (Patient not taking: Reported on 10/21/2020) No current facility-administered medications for this visit. Allergies: Patient has no known allergies. Patient's medications, allergies, past medical, surgical, social and family hist ories were reviewed and updated as appropriate. Objective: Vitals - 1 value per visit 10/21/2020 11/09/2020 11/22/2020 SYSTOLIC - - 109 DIASTOLIC - - 84 PULSE - - 90 TEMPERATURE - - 96.4 RESPIRATIONS - - - Weight (kg) - 68.947 kg 65.772 kg HEIGHT - - - SPO2 - - - BODY MASS INDEX - 23.11 kg/m2 22.05 kg/m2 PAIN SCALE - SCORE 0 0 0 PAIN SCALE - LOCATION EYE - - Phone Exam - Limited No repiratory distress Speech fluent Psych: Mood, affect, train of thought unremarkable. Good insight. Interval Imaging Assessment & Plan: Reba is s/p GK SRS for 4 brain metastases - in the setting of stage IV esophageal cancer His updated MRI is consistent with intracranial progression. The lesion in the left cavernous sinus is consistent with a metastasis, and there are multiple pa renchymal lesions as well. Official report expresses concern for leptomeningeal dissemination. Additional gamma knife will not be appropriate, and WBRT likely represents the best palliative option at this point. I will speak to Dr. Ángela ford, his local radiation oncologist, and get him seen EMELY. I will follow with him on an as needed basis, moving forward. The plan of care for pain includes the following intervention(s): controlled wit h Rx medication I spent a total of 25 minutes today on the clinic visit, including preparation, patient evaluating/counseling, and documentation / coordination of care. Ken Brooks MD Building Construction Supervisor Radiation Oncology documented in this encounter Nursing Notes * Radha Loera, RN - 11/22/2020 9:00 AM EDT Called patient prior to telemedicine visit with Dr. Brooks. He reports no major cathy nges at this time. States he did have a fall a week ago when he lost his balance . He fell on his bottom and denies any injuries or LOC. Only complaint has been having anxiety for which he is now taking medication for. Also he reports being approved for medical marijuana. Patient/ are aware of upcoming appointment f or 0900. No questions or concerns at this time. documented in this encounter Plan of Treatment Care Team Description Date Type Specialty 01/20/2021 Office Visit Ophthalmology Health Maintenance Due Date Last Done Comments MMR Vaccines (1 of 1 - 10/09/1956 Standard series) Varicella Vaccines (1 of 10/09/1956 2 - 2-dose childhood series) Pneumococcal Vaccine: 65+ [birth year]09/1961 Years (1 of 4 - PCV13) Pneumococcal Vaccine: 10[birth year]09/1961 Pediatrics (0 to 5 Years) and At-Risk Patients (6 to 64 Years) (1 of 4 - PCV13) DTaP,Tdap,and Td Vaccines 10/09/1962 (1 - Tdap) Colon Cancer Screening 10 10/09/2005 yrs Zoster Vaccines (1 of 2) 10/09/2005 Influenza Vaccine 12/23/2020 12/14/2019 COVID-19 Vaccine Completed 06/14/2020, 05/24/2020 Hepatitis C Screening (B. Completed 09/08/2020, [id number]) 09/08/2020 HIB Vaccines Aged Out No longer eligible based on patient's age to complete this topic Hepatitis A Vaccines Aged Out No longer eligibl e based on patient's age to complete this topic Hepatitis B Vaccines Aged Out No longer eligibl e based on patient's age to complete this topic IPV Vaccines Aged Out No longer eligible based on patient's age to complete this topic documented as of this encounter Implants Device Identifier Shelf Expiration Date Model / Serial / L ot Implanted Type Area Manufactur er 05/18/2022 [id number] / / [id number] Gi- Saf-T-Pexy Fasteners - N/A: Stomach [employer]YARD [id number] Implanted: Qty: 1 on 09/13/2020 by Lowell Landers MD at [facility] 07/15/2023 [id number] / / [id number] Gi- Entuit G-Tube 18fr- Sbrd-1 - N/A: Stomach [employer] [id number] Implanted: Qty: 1 on 09/13/2020 by Lowell Landers MD at [facility] [id number] / [id number] / Prokera Plus-10/03/2020 Implanted: Qty: 1 on 10/03/2020 by Cassie Weathers MD Explanted: 10/07/2020 (Quantity not on file) documented as of this encounter Procedures Comments Procedure Name Priority Date/Time Associated Diag nosis RADIOLOGY REPORT 11/15/2020 1:44 PM EDT documented in this encounter Results * RADIOLOGY REPORT (11/15/2020 1:44 PM EDT) Narrative Performed At This result has an attachment that is n ot available. documented in this encounter Visit Diagnoses Diagnosis Brain metastases - Primary 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
--- OUTSIDE RECORDS SUMMARY | 2021-01-05 11:20 | CCD | Continuity of Care Document ---
Author Author Reba Morales MD Organization Unknown Address [address] [address] Phone [phone] Care Team Providers Care Book Binder Name Role Phone Rashaun Morales JR, MD AUTM Unavailable Problems Description No Information Available Social History Type Date Description Comments Sex Unknown ETOH Use Denies alcohol use Tobacco Use Start: Unknown Patient is a current smoker, smo kes every day smokes a pack a day Allergies, Adverse Reactions, Alerts Description No Known Drug Allergies Medications Active Medications SIG Qnty Indications Ordering Provide r Date No Active Medications Unknown History Medications Ondansetron 4mg Tablets Dispers place 1 tablet under the tongue every 4 hours as needed for nausea 60tabs Rashaun Morales MD 09/19/2020 - 10/05/2020 Tylenol Infants 160mg/5ML Suspensi on 15ml by mouth every night at bedtime and 15ml twice a day as needed 120ml Rashaun Morales MD 09/19/2020 - 09/19/2020 Acetaminophen 500mg Tablets 1 tab by mouth or via feeding tube every 4 hours as needed for pain [id number] 120tabs Rashaun Morales MD 09/19/2020 - 10/05/2020 Nystatin [id number] Suspension 5cc swish and swallow five times a day x 10 days 473ml CELESTINE Naranjo JR 08/23/2020 - 10/05/2020 Gabapentin 300mg Capsules 1 by mouth tid prn 90capCELESTINE Espinoza JR 021 - 10/05/[address] 1 by mouth every day 90capCELESTINE Espinoza JR 021 - 10/05/2020 Immunizations Description No Information Available Vital Signs Date Vital Result Comment 10/05/2020 9:39am BP Systolic 100 mmHg BP Diastolic 60 mmHg Heart Rate 62 /min Height 67.75 inches 5'7.75" 4 Weight 163.00 lb BMI (Body Mass Index) 25.0 kg/m2 08/18/2020 8:22am BP Systolic 138 mmHg BP Diastolic 82 mmHg Heart Rate 85 /min Height 67.75 inches 5'7.75" 4 Weight 188.00 lb BMI (Body Mass Index) 28.8 kg/m2 Results Test Acquired Date Facility Test Result H/L Range Note CBC With Differential 12/05/[address] [address] [phone] White Blood Count 7.1 10 Normal 4.0-10.0 Red Blood Count 3.52 10 Low 4.30-6.10 Hemoglobin 11.6 g/dL Low 13.5-17.5 Hematocrit 33.6 % Low 42.0-52.0 Mean Corpuscular Volume 95.5 fl Normal 80.0-96.0 Mean Corpuscular Hemoglobin 33.0 pg Normal 27.0-33.0 Mean Corpuscular HGB Conc 34.5 g/dL Normal 32.0-36.5 Red Cell Distribution Width 15.3 % High 11.5-14.5 Platelet Count, Automated 146 10 Low 150-450 Neutrophils % 72.2 % High 36.0-66.0 Lymph % 11.0 % Low 24.0-44.0 Charles [place] % 13.1 % High 2.0-8.0 Eos % 1.4 % Normal 0.0-3.0 Baso % 0.3 % Normal 0.0-1.0 Immature Granulocyte % 2.0 % Normal 0-3.0 Nucleated Red Blood Cell % 0.0 % Normal 0-0 Neutrophils # 5.2 10 Normal 1.5-8.5 Lymph # 0.8 10 Low 1.5-5.0 Charles [place] # 0.9 10 High 0.0-0.8 Eos # 0.1 10 Normal 0.0-0.5 Baso # 0.0 10 Normal 0.0-0.2 Influenza A/B RSV Covid Amp 12/05/[address] [id number] [phone] Influenza A Amplification NEGATIVE Normal Negati ve 1 Influenza B Amplification NEGATIVE Normal Negative 2 RSV Amplification NEGATIVE Normal Negative 3 Sars Covid-19 Amplification NEGATIVE Normal Negative 4 Laboratory test finding 12/05/2020 [place] [id number] [phone] Magnesium Level 2.1 mg/dL Normal 1.8-2.4 Thyroid Stimulating Hormone 0.654 uIU/ML Normal 0.358-3.740 Free T4 1.28 ng/dL Normal 0.76-1.46 Basic Metabolic Profile 12/05/[address] [address] [phone] Glucose, Fasting 91 mg/dL Normal 70-100 Blood Urea Nitrogen 11 mg/dL Normal 7-18 Creatinine For GFR 0.60 mg/dL Low 0.70-1.30 Glomerular Filtration Rate > 60.0 Normal >49 5 Sodium Level 130 mEq/L Low 136-145 Potassium Serum 4.1 mEq/L Normal 3.5-5.1 Chloride Level 95 mEq/L Low 98-107 Carbon Dioxide Level 26 mEq/L Normal 21-32 Anion Gap 9 mEq/L Normal 8-16 Calcium Level 8.7 mg/dL Low 8.8-10.2 Liver Profile 12/05/2020 [facility] [address] [place] [address] [phone] Ast/Sgot 24 U/L Normal 7-37 Alt/SGPT 24 U/L Normal 12-78 Alkaline Phosphatase 142 U/L High 45-117 Bilirubin,Total 0.8 mg/dL Normal 0.2-1.0 Bilirubin,Direct 0.3 mg/dL High 0.0-0.2 Total Protein 5.9 GM/DL Low 6.4-8.2 Albumin 2.8 GM/DL Low 3.2-5.2 Albumin/Globulin Ratio 0.9 Normal Cardiac Marker Panel 12/05/2020 [facility] [address] [place] [address] [phone] CPK Creatine Phosphokinase 28 U/L Low 39-30 8 CK-MB Value Mass < 1.0 NG/ML Normal <3.6 MB/CK Relative Index 3.57 Normal < Or =4 6 Troponin I < 0.02 NG/ML Normal < 0.10 7 Laboratory test finding 12/05/[address] [address] [phone] Lactic Acid Sepsis Protocol 1.1 mmol/L Normal 0.4- 2.0 8 CBC With Differential 11/22/[address] [address] [phone] White Blood Count 8.5 10 Normal 4.0-10.0 Red Blood Count 3.84 10 Low 4.30-6.10 Hemoglobin 12.4 g/dL Low 13.5-17.5 Hematocrit 36.6 % Low 42.0-52.0 Mean Corpuscular Volume 95.3 fl Normal 80.0-96.0 Mean Corpuscular Hemoglobin 32.3 pg Normal 27.0-33.0 Mean Corpuscular HGB Conc 33.9 g/dL Normal 32.0-36.5 Red Cell Distribution Width 14.6 % High 11.5-14.5 Platelet Count, Automated 178 10 Normal 150-450 Neutrophils % 68.8 % High 36.0-66.0 Lymph % 10.5 % Low 24.0-44.0 Charles [place] % 14.7 % High 2.0-8.0 Eos % 0.8 % Normal 0.0-3.0 Baso % 0.7 % Normal 0.0-1.0 Immature Granulocyte % 4.5 % High 0-3.0 Nucleated Red Blood Cell % 0.0 % Normal 0-0 Neutrophils # 5.8 10 Normal 1.5-8.5 Lymph # 0.9 10 Low 1.5-5.0 Charles Mix # 1.3 10 High 0.0-0.8 Eos # 0.1 10 Normal 0.0-0.5 Baso # 0.1 10 Normal 0.0-0.2 Comprehensive Metabolic Profil 11/22/[address] [address] [phone] Glucose, Fasting 104 mg/dL High 70-100 Blood Urea Nitrogen 8 mg/dL Normal 7-18 Creatinine For GFR 0.67 mg/dL Low 0.70-1.30 Glomerular Filtration Rate > 60.0 Normal >49 9 Sodium Level 131 mEq/L Low 136-145 Potassium Serum 4.1 mEq/L Normal 3.5-5.1 Chloride Level 98 mEq/L Normal 98-107 Carbon Dioxide Level 27 mEq/L Normal 21-32 Anion Gap 6 mEq/L Low 8-16 Calcium Level 9.0 mg/dL Normal 8.8-10.2 Ast/Sgot 25 U/L Normal 7-37 Alt/SGPT 22 U/L Normal 12-78 Alkaline Phosphatase 168 U/L High 45-117 Bilirubin,Total 0.7 mg/dL Normal 0.2-1.0 Total Protein 6.9 GM/DL Normal 6.4-8.2 Albumin 2.8 GM/DL Low 3.2-5.2 Albumin/Globulin Ratio 0.7 Normal Laboratory test finding 11/22/[address] [address] [phone] Carcinoembryonic Antigen 12.2 NG/ML High <2.5 10 Thyroid Stimulating Hormone 0.432 uIU/ML Normal 0.358-3.740 Free T4 1.59 ng/dL High 0.76-1.46 CBC With Differential 11/15/[address] [address] [phone] White Blood Count 2.2 10 Low 4.0-10.0 Red Blood Count 3.62 10 Low 4.30-6.10 Hemoglobin 11.8 g/dL Low 13.5-17.5 Hematocrit 33.7 % Low 42.0-52.0 Mean Corpuscular Volume 93.1 fl Normal 80.0-96.0 Mean Corpuscular Hemoglobin 32.6 pg Normal 27.0-33.0 Mean Corpuscular HGB Conc 35.0 g/dL Normal 32.0-36.5 Red Cell Distribution Width 13.6 % Normal 11.5-14.5 Platelet Count, Automated 127 10 Low 150-450 Neutrophils % 43.4 % Normal 36.0-66.0 Lymph % 16.4 % Low 24.0-44.0 Charles [place] % 36.5 % High 2.0-8.0 Eos % 2.3 % Normal 0.0-3.0 Baso % 0.9 % Normal 0.0-1.0 Immature Granulocyte % 0.5 % Normal 0-3.0 Nucleated Red Blood Cell % 0.0 % Normal 0-0 Neutrophils # 1.0 10 Low 1.5-8.5 Lymph # 0.4 10 Low 1.5-5.0 Charles Mix # 0.8 10 Normal 0.0-0.8 Eos # 0.1 10 Normal 0.0-0.5 Baso # 0.0 10 Normal 0.0-0.2 Comprehensive Metabolic Profil 11/15/[address] [address] [phone] Glucose, Fasting 101 mg/dL High 70-100 Blood Urea Nitrogen 12 mg/dL Normal 7-18 Creatinine For GFR 0.56 mg/dL Low 0.70-1.30 Glomerular Filtration Rate > 60.0 Normal >49 1 1 Sodium Level 129 mEq/L Low 136-145 Potassium Serum 4.2 mEq/L Normal 3.5-5.1 Chloride Level 96 mEq/L Low 98-107 Carbon Dioxide Level 29 mEq/L Normal 21-32 Anion Gap 4 mEq/L Low 8-16 Calcium Level 8.6 mg/dL Low 8.8-10.2 Ast/Sgot 25 U/L Normal 7-37 Alt/SGPT 23 U/L Normal 12-78 Alkaline Phosphatase 129 U/L High 45-117 Bilirubin,Total 0.7 mg/dL Normal 0.2-1.0 Total Protein 6.3 GM/DL Low 6.4-8.2 Albumin 2.6 GM/DL Low 3.2-5.2 Albumin/Globulin Ratio 0.7 Normal Comprehensive Metabolic Profil 11/10/[address] [address] [phone] Glucose, Fasting 107 mg/dL High 70-100 Blood Urea Nitrogen 11 mg/dL Normal 7-18 Creatinine For GFR 0.54 mg/dL Low 0.70-1.30 Glomerular Filtration Rate > 60.0 Normal >49 1 2 Sodium Level 129 mEq/L Low 136-145 Potassium Serum 3.8 mEq/L Normal 3.5-5.1 Chloride Level 97 mEq/L Low 98-107 Carbon Dioxide Level 25 mEq/L Normal 21-32 Anion Gap 7 mEq/L Low 8-16 Calcium Level 8.3 mg/dL Low 8.8-10.2 Ast/Sgot 17 U/L Normal 7-37 Alt/SGPT 22 U/L Normal 12-78 Alkaline Phosphatase 116 U/L Normal 45-117 Bilirubin,Total 0.6 mg/dL Normal 0.2-1.0 Total Protein 6.4 GM/DL Normal 6.4-8.2 Albumin 3.0 GM/DL Low 3.2-5.2 Albumin/Globulin Ratio 0.9 Normal CBC With Differential 11/10/[address] [address] [phone] White Blood Count 3.6 10 Low 4.0-10.0 Red Blood Count 3.77 10 Low 4.30-6.10 Hemoglobin 12.3 g/dL Low 13.5-17.5 Hematocrit 35.0 % Low 42.0-52.0 Mean Corpuscular Volume 92.8 fl Normal 80.0-96.0 Mean Corpuscular Hemoglobin 32.6 pg Normal 27.0-33.0 Mean Corpuscular HGB Conc 35.1 g/dL Normal 32.0-36.5 Red Cell Distribution Width 12.7 % Normal 11.5-14.5 Platelet Count, Automated 85 10 Low 150-450 Neutrophils % 75.0 % High 36.0-66.0 Lymph % 4.7 % Low 24.0-44.0 Charles [place] % 16.1 % High 2.0-8.0 Eos % 2.8 % Normal 0.0-3.0 Baso % 0.6 % Normal 0.0-1.0 Immature Granulocyte % 0.8 % Normal 0-3.0 Nucleated Red Blood Cell % 0.0 % Normal 0-0 Neutrophils # 2.7 10 Normal 1.5-8.5 Lymph # 0.2 10 Low 1.5-5.0 Charles [place] # 0.6 10 Normal 0.0-0.8 Eos # 0.1 10 Normal 0.0-0.5 Baso # 0.0 10 Normal 0.0-0.2 Laboratory test finding 11/10/[address] [address] [phone] Immature Platelet Fraction 3.8 % Normal 0.0-1 0.91 FT4&TSH Panel 10/31/2020 [facility] [address] [place] [address] [phone] Thyroid Stimulating Hormone 0.394 uIU/ML Normal 0. 358-3.740 Free T4 1.31 ng/dL Normal 0.76-1.46 Laboratory test finding 10/31/2020 [facility] [address] [place] [address] [phone] Carcinoembryonic Antigen 30.5 NG/ML High <2.5 13 CBC With Differential 10/31/[address] [address] [phone] White Blood Count 6.3 10 Normal 4.0-10.0 Red Blood Count 4.16 10 Low 4.30-6.10 Hemoglobin 13.3 g/dL Low 13.5-17.5 Hematocrit 38.8 % Low 42.0-52.0 Mean Corpuscular Volume 93.3 fl Normal 80.0-96.0 Mean Corpuscular Hemoglobin 32.0 pg Normal 27.0-33.0 Mean Corpuscular HGB Conc 34.3 g/dL Normal 32.0-36.5 Red Cell Distribution Width 13.0 % Normal 11.5-14.5 Platelet Count, Automated 111 10 Low 150-450 Neutrophils % 81.0 % High 36.0-66.0 Lymph % 2.7 % Low 24.0-44.0 Charles [place] % 11.9 % High 2.0-8.0 Eos % 2.7 % Normal 0.0-3.0 Baso % 0.3 % Normal 0.0-1.0 Immature Granulocyte % 1.4 % Normal 0-3.0 Nucleated Red Blood Cell % 0.0 % Normal 0-0 Neutrophils # 5.1 10 Normal 1.5-8.5 Lymph # 0.2 10 Low 1.5-5.0 Charles Mix # 0.8 10 Normal 0.0-0.8 Eos # 0.2 10 Normal 0.0-0.5 Baso # 0.0 10 Normal 0.0-0.2 Comprehensive Metabolic Profil 10/31/[address] [address] [phone] Glucose, Fasting 101 mg/dL High 70-100 Blood Urea Nitrogen 8 mg/dL Normal 7-18 Creatinine For GFR 0.48 mg/dL Low 0.70-1.30 Glomerular Filtration Rate > 60.0 Normal >49 1 4 Sodium Level 131 mEq/L Low 136-145 Potassium Serum 4.2 mEq/L Normal 3.5-5.1 Chloride Level 96 mEq/L Low 98-107 Carbon Dioxide Level 29 mEq/L Normal 21-32 Anion Gap 6 mEq/L Low 8-16 Calcium Level 8.5 mg/dL Low 8.8-10.2 Ast/Sgot 27 U/L Normal 7-37 Alt/SGPT 21 U/L Normal 12-78 Alkaline Phosphatase 137 U/L High 45-117 Bilirubin,Total 0.8 mg/dL Normal 0.2-1.0 Total Protein 6.2 GM/DL Low 6.4-8.2 Albumin 3.0 GM/DL Low 3.2-5.2 Albumin/Globulin Ratio 0.9 Normal CBC With Differential 10/14/[address] [id number] [phone] White Blood Count 9.4 10 Normal 4.0-10.0 Red Blood Count 4.35 10 Normal 4.30-6.10 Hemoglobin 13.9 g/dL Normal 13.5-17.5 Hematocrit 39.5 % Low 42.0-52.0 Mean Corpuscular Volume 90.8 fl Normal 80.0-96.0 Mean Corpuscular Hemoglobin 32.0 pg Normal 27.0-33.0 Mean Corpuscular HGB Conc 35.2 g/dL Normal 32.0-36.5 Red Cell Distribution Width 12.3 % Normal 11.5-14.5 Platelet Count, Automated 184 10 Normal 150-450 Neutrophils % 84.2 % High 36.0-66.0 Lymph % 5.2 % Low 24.0-44.0 Charles [place] % 6.9 % Normal 2.0-8.0 Eos % 2.5 % Normal 0.0-3.0 Baso % 0.2 % Normal 0.0-1.0 Immature Granulocyte % 1.0 % Normal 0-3.0 Nucleated Red Blood Cell % 0.0 % Normal 0-0 Neutrophils # 8.0 10 Normal 1.5-8.5 Lymph # 0.5 10 Low 1.5-5.0 Charles Mix # 0.7 10 Normal 0.0-0.8 Eos # 0.2 10 Normal 0.0-0.5 Baso # 0.0 10 Normal 0.0-0.2 Basic Metabolic Profile 10/14/[address] [address] [phone] Glucose, Fasting 107 mg/dL High 70-100 Blood Urea Nitrogen 8 mg/dL Normal 7-18 Creatinine For GFR 0.46 mg/dL Low 0.70-1.30 Glomerular Filtration Rate > 60.0 Normal >49 1 5 Sodium Level 130 mEq/L Low 136-145 Potassium Serum 4.2 mEq/L Normal 3.5-5.1 Chloride Level 96 mEq/L Low 98-107 Carbon Dioxide Level 24 mEq/L Normal 21-32 Anion Gap 10 mEq/L Normal 8-16 Calcium Level 8.9 mg/dL Normal 8.8-10.2 CBC With Differential 09/20/[address] [address] [phone] White Blood Count 11.0 10 High 4.0-10.0 Red Blood Count 5.04 10 Normal 4.30-6.10 Hemoglobin 15.8 g/dL Normal 13.5-17.5 Hematocrit 46.4 % Normal 42.0-52.0 Mean Corpuscular Volume 92.1 fl Normal 80.0-96.0 Mean Corpuscular Hemoglobin 31.3 pg Normal 27.0-33.0 Mean Corpuscular HGB Conc 34.1 g/dL Normal 32.0-36.5 Red Cell Distribution Width 12.1 % Normal 11.5-14.5 Platelet Count, Automated 222 10 Normal 150-450 Neutrophils % 79.2 % High 36.0-66.0 Lymph % 9.2 % Low 24.0-44.0 Charles [place] % 9.7 % High 2.0-8.0 Eos % 0.8 % Normal 0.0-3.0 Baso % 0.3 % Normal 0.0-1.0 Immature Granulocyte % 0.8 % Normal 0-3.0 Nucleated Red Blood Cell % 0.0 % Normal 0-0 Neutrophils # 8.7 10 High 1.5-8.5 Lymph # 1.0 10 Low 1.5-5.0 Charles Mix # 1.1 10 High 0.0-0.8 Eos # 0.1 10 Normal 0.0-0.5 Baso # 0.0 10 Normal 0.0-0.2 PT & Aptt 09/20/2020 [facility] [address]ter [address] [place] [address] [phone] Prothrombin Time 12.2 seconds Normal 12.5-14.3 Inr 0.89 Normal 16 Partial Thromboplastin Time 26.8 seconds Normal 24.2-38.5 Comprehensive Metabolic Profil 09/20/[address] [address] [phone] Glucose, Fasting 110 mg/dL High 70-100 Blood Urea Nitrogen 9 mg/dL Normal 7-18 Creatinine For GFR 0.70 mg/dL Normal 0.70-1.30 Glomerular Filtration Rate > 60.0 Normal >49 1 7 Sodium Level 131 mEq/L Low 136-145 Potassium Serum 4.1 mEq/L Normal 3.5-5.1 Chloride Level 97 mEq/L Low 98-107 Carbon Dioxide Level 28 mEq/L Normal 21-32 Anion Gap 6 mEq/L Low 8-16 Calcium Level 8.9 mg/dL Normal 8.8-10.2 Ast/Sgot 15 U/L Normal 7-37 Alt/SGPT 21 U/L Normal 12-78 Alkaline Phosphatase 126 U/L High 45-117 Bilirubin,Total 0.7 mg/dL Normal 0.2-1.0 Total Protein 7.2 GM/DL Normal 6.4-8.2 Albumin 3.8 GM/DL Normal 3.2-5.2 Albumin/Globulin Ratio 1.1 Normal Laboratory test finding 09/20/2020 [facility] [address] [place] [address] [phone] Carcinoembryonic Antigen 8.2 NG/ML High <2.5 18 Influenza A/B RSV Covid Amp 09/08/[address] [address] [phone] Influenza A Amplification NEGATIVE Normal Negati ve 19 Influenza B Amplification NEGATIVE Normal Negative 20 RSV Amplification NEGATIVE Normal Negative 21 Sars Covid-19 Amplification NEGATIVE Normal Negative 22 Laboratory test finding 09/08/2020 [facility] [address] [place] [address] [phone] Lipase 78 U/L Normal 73-393 Lactic Acid Sepsis Protocol 1.2 mmol/L Normal 0.4-2.0 23 Liver Profile 09/08/2020 [facility] nter [address] [place] [address] [phone] Ast/Sgot 16 U/L Normal 7-37 Alt/SGPT 21 U/L Normal 12-78 Alkaline Phosphatase 117 U/L Normal 45-117 Bilirubin,Total 0.7 mg/dL Normal 0.2-1.0 Bilirubin,Direct 0.2 mg/dL Normal 0.0-0.2 Total Protein 6.7 GM/DL Normal 6.4-8.2 Albumin 3.5 GM/DL Normal 3.2-5.2 Albumin/Globulin Ratio 1.1 Normal CBC With Differential 09/08/2020 [place] [address] [place] [address] [phone] White Blood Count 7.7 10 Normal 4.0-10.0 Red Blood Count 5.43 10 Normal 4.30-6.10 Hemoglobin 16.9 g/dL Normal 13.5-17.5 Hematocrit 50.0 % Normal 42.0-52.0 Mean Corpuscular Volume 92.1 fl Normal 80.0-96.0 Mean Corpuscular Hemoglobin 31.1 pg Normal 27.0-33.0 Mean Corpuscular HGB Conc 33.8 g/dL Normal 32.0-36.5 Red Cell Distribution Width 12.2 % Normal 11.5-14.5 Platelet Count, Automated 198 10 Normal 150-450 Neutrophils % 73.2 % High 36.0-66.0 Lymph % 13.3 % Low 24.0-44.0 Charles [place] % 11.1 % High 2.0-8.0 Eos % 1.6 % Normal 0.0-3.0 Baso % 0.1 % Normal 0.0-1.0 Immature Granulocyte % 0.7 % Normal 0-3.0 Nucleated Red Blood Cell % 0.0 % Normal 0-0 Neutrophils # 5.6 10 Normal 1.5-8.5 Lymph # 1.0 10 Low 1.5-5.0 [place] Mix # 0.9 10 High 0.0-0.8 Eos # 0.1 10 Normal 0.0-0.5 Baso # 0.0 10 Normal 0.0-0.2 Istat Chem8+ Panel 09/08/2020 [facility] [address] [place], [place] [id number] [phone] iSTAT HCT 50.0 % Normal 38.0-51.0 iSTAT Glucose 115 mg/dL High 70-105 iSTAT Sodium 134 mEq/L Low 136-145 iSTAT Potassium 3.9 mEq/L Normal 3.5-5.1 iSTAT CA++ 4.7 mg/dL Normal 4.5-5.3 iSTAT Chloride 95 mEq/L Low 98-109 iSTAT Co2 24.0 MM/L Normal 23.0-27.0 iSTAT BUN 6 mg/dL Low 8-26 iSTAT Creatinine 0.8 mg/dL Normal 0.6-1.3 CBC With Auto Diff 08/13/2020 [facility] [address] [place] [address] [phone] WBC # Bld Auto 8.4 10*3/uL Normal 4.45-10.71 24 RBC # Bld Auto 5.36 10*6/uL Normal 4.3-6.1 Hgb Bld-sCnc 16.9 g/dL Normal 13-18 Hct VFr Bld Auto 48.9 % Normal 42-52 MCV BldCo Auto 91 fL Normal 80-96 MCH RBC Qn Auto 32 pg High 27-31 MCHC BldCo-mCnc 35 g/dL Normal 33-37 RDW RBC Auto 12 % Normal 11-15 Platelet # Bld Auto 193 10*3/uL Normal 130-472 PMV Bld 9.1 fL Normal 9.1-13.1 Neutrophils/leuk NFr Bld Auto 76.5 % Normal 41-77 Neutrophils # Bld Auto 6.4 U Normal 1.7-7.6 Lymphocytes/leuk NFr Bld Auto 13.8 % Low 14-46 Lymphocytes # Bld Auto 1.2 U Normal 0.6-4.6 Monocytes/leuk NFr Bld Auto 8.0 % Normal 4-12 Monocytes # Bld Auto 0.7 U Normal 0.2-1.2 Eosinophil/leuk NFr Bld Auto 0.8 % Normal 0-7 Eosinophil # Bld Auto 0.1 U Normal 0.0-0.5 Basophils/leuk NFr Bld Auto 0.5 % Normal 0.4-1.3 Basophils # Bld Auto 0.0 U Normal 0.0-0.2 Nucleated Red Blood Cell 0 % Nucleated Red Blood Cell# 0 U Imm Granulocytes Bld Ql Auto 0.4 Normal 0-2 Imm Granulocytes # Bld Auto 0.0 U Normal 0-0.1 Manual diff Bld NO Laboratory test finding 08/13/[address] [address] [phone] Esr Bld Qn Westrgrn 1 [facility] Normal 0-20 Comprehensive Metabolic Prof 08/13/[address] [address] [phone] BUN SerPl-mCnc 6 mg/dL Low 9-23 Sodium SerPl-sCnc 134 mmol/L Normal 132-146 Potassium SerPl-sCnc 4.4 mmol/L Normal 3.5-5.5 Chloride SerPl-sCnc 104 mmol/L Normal 99-109 Co2 SerPl-sCnc 28 mmol/L Normal 20-31 Anion Gap SerPl-sCnc 6 mmol/L Low 8-16 Glucose SerPl-mCnc 111 mg/dL High 74-106 Creatinine 0.8 mg/dL Normal 0.5-1.1 GFR/Bsa.pred SerPlBld-ArVRat Greater Than 60 Above 60 Alt SerPl w P-5'-P-cCnc 17 U/L Normal 10-49 Ast SerPl w P-5'-P-cCnc 8 U/L Normal 0-33 Alp SerPl-cCnc 114 U/L Normal 45-129 Calcium SerPl-mCnc 9.0 mg/dL Normal 8.5-10.1 Bilirub SerPl-mCnc 0.7 mg/dL Normal 0.3-1.2 Albumin SerPl BCP-mCnc 3.7 g/dL Normal 3.2-4.8 Prot SerPl-mCnc 7.2 g/dL Normal 5.7-8.2 Laboratory test finding 08/13/2020 [facility] [address] [place] [address] [phone] CRP SerPl-mCnc Less Than 2.9 Normal 0.0-5.0 VZV IgG Ser-aCnc 1888.00 [facility] 25 VZV IgM Ser-aCnc <=0.90 <=0.90 26 1 Negative results do not prec lude influenza or RSV virus infection and should not be used as the sole basis for treatment or other patient management decisions. 2 Negative results do not prec lude influenza or RSV virus infection and should not be used as the sole basis for treatment or other patient management decisions. 3 Negative results do not prec lude influenza or RSV virus infection and should not be used as the sole basis for treatment or other patient management decisions. 4 A false negative result may occur if a specimen is improperly collected, transported or handled. False negative results may also occur if inadequate numbers of organisms are present in the specimen. As with any molecular test, mutations within the target regions of Xpert Xpress SARS-CoV-2 could affect primer and/or probe binding resulting in failure to detect the presence of virus. This test cannot rule out diseases caused by other bacterial or viral pathogens. DISCLAIMER: Testing was performed using the [employer] SARS-CoV-2 test. This test was developed and its performance characteristics determined by [employer]. This test has not been FDA cleared or approved. This test has been authorized by FDA under an Emergency Use Authorization (EUA). This test is only authorized for the duration of time the declaration that circumstances exist justifying the authorization of the emergency use of in vitro diagnostic tests for detection of SARS-CoV-2 virus and/or diagnosis of COVID-19 infection under section 564(b)(1) of the Act, 21 U.S.C. 360bbb-3(b)(1), unless the authorization is terminated or revoked sooner. 5 Units are mL/min/1.73 m2 Chronic Kidney Disease Staging per NKF: Stage I & II GFR >=60 Normal to Mildly Decreased Stage III GFR 30-59 Moderately Decreased Stage IV GFR 15-29 Severely Decreased Stage V GFR <15 Very Little GFR Left ESRD GFR <15 on REGIONAL EHS MANAGER 6 DIAGNOSIS CRITERIA MMB ng/ml Relative Index (RI) NON-AMI < or = 5 N/A CRAIG ZONE > 5 < or = 4 AMI > 5 > 4 7 Troponin I Reference Interva l for Siemens [place] LOCI: 99th Percentile= 0.00-0.045 ng/ml Risk Stratification: <= 0.10 ng/ml Decreased Risk for Adverse Clinical Events. 0.10-1.50 ng/ml Increased Risk for Adv erse Clinical Events. Evaluation of additional criterion and/or repeat testing in 2-6 hours is suggested to rule out myocardial damage. >= 1.50 ng/ml Indicative of Myocardial Injury. 8 Y/N query for Sepsis Lactate Rule: Y 9 Units are mL/min/1.73 m2 Chronic Kidney Disease Staging per NKF: Stage I & II GFR >=60 Normal to Mildly Decreased Stage III GFR 30-59 Moderately Decreased Stage IV GFR 15-29 Severely Decreased Stage V GFR <15 Very Little GFR Left ESRD GFR <15 on REGIONAL EHS MANAGER 10 THE CEA ASSAY IS PERFORMED O N THE [employer] BY CHEMILUMINESCENCE AND SHOULD NOT BE COMPARED INTERCHANGEABLY WITH OTHER METHODS. IT SHOULD NOT BE USED ALONE A SCREENING TEST OR DIAGNOSIS FOR THE PRESENCE OR ABSENCE OF MALIGNANT DISEASE. PREDICTIONS OF DISEASE RECURRENCE SHOULD NOT BE BASED SOLELY ON VALUES OBTAINED FROM SERIAL PATIENT SERUM VALUES. 11 Units are mL/min/1.73 m2 Chronic Kidney Disease Staging per NKF: Stage I & II GFR >=60 Normal to Mildly Decreased Stage III GFR 30-59 Moderately Decreased Stage IV GFR 15-29 Severely Decreased Stage V GFR <15 Very Little GFR Left ESRD GFR <15 on REGIONAL EHS MANAGER 12 Units are mL/min/1.73 m2 Chronic Kidney Disease Staging per NKF: Stage I & II GFR >=60 Normal to Mildly Decreased Stage III GFR 30-59 Moderately Decreased Stage IV GFR 15-29 Severely Decreased Stage V GFR <15 Very Little GFR Left ESRD GFR <15 on REGIONAL EHS MANAGER 13 THE CEA ASSAY IS PERFORMED O N THE [place] BY CHEMILUMINESCENCE AND SHOULD NOT BE COMPARED INTERCHANGEABLY WITH OTHER METHODS. IT SHOULD NOT BE USED ALONE A SCREENING TEST OR DIAGNOSIS FOR THE PRESENCE OR ABSENCE OF MALIGNANT DISEASE. PREDICTIONS OF DISEASE RECURRENCE SHOULD NOT BE BASED SOLELY ON VALUES OBTAINED FROM SERIAL PATIENT SERUM VALUES. 14 Units are mL/min/1.73 m2 Chronic Kidney Disease Staging per NKF: Stage I & II GFR >=60 Normal to Mildly Decreased Stage III GFR 30-59 Moderately Decreased Stage IV GFR 15-29 Severely Decreased Stage V GFR <15 Very Little GFR Left ESRD GFR <15 on REGIONAL EHS MANAGER 15 Units are mL/min/1.73 m2 Chronic Kidney Disease Staging per NKF: Stage I & II GFR >=60 Normal to Mildly Decreased Stage III GFR 30-59 Moderately Decreased Stage IV GFR 15-29 Severely Decreased Stage V GFR <15 Very Little GFR Left ESRD GFR <15 on REGIONAL EHS MANAGER 16 THERAPUTIC HUMAN INR VALUES INDICATIONS NORMAL RANGES PROPHYLAXIS/TREATMENT OF: VENOUS THROMBOSIS 2.0-3.0 PULMONARY EMBOLISM 2.0-3.0 PREVENTION OF SYSTEMIC EMBOLISM FROM: TISSUE HEART VALVES 2.0-3.0 ACUTE MYOCARDIAL INFARCTION 2.0-3.0 VALVULAR HEART DISEASE 2.0-3.0 ATRIAL FIBRILLATION 2.0-3.0 MECHANICAL VALVES(HIGH RISK) 2.5-3.5 RECURRENT MYOCARDIAL INFARCTION 2.5-3.5 17 Units are mL/min/1.73 m2 Chronic Kidney Disease Staging per NKF: Stage I & II GFR >=60 Normal to Mildly Decreased Stage III GFR 30-59 Moderately Decreased Stage IV GFR 15-29 Severely Decreased Stage V GFR <15 Very Little GFR Left ESRD GFR <15 on REGIONAL EHS MANAGER 18 THE CEA ASSAY IS PERFORMED O N THE [employer] BY CHEMILUMINESCENCE AND SHOULD NOT BE COMPARED INTERCHANGEABLY WITH OTHER METHODS. IT SHOULD NOT BE USED ALONE A SCREENING TEST OR DIAGNOSIS FOR THE PRESENCE OR ABSENCE OF MALIGNANT DISEASE. PREDICTIONS OF DISEASE RECURRENCE SHOULD NOT BE BASED SOLELY ON VALUES OBTAINED FROM SERIAL PATIENT SERUM VALUES. 19 Negative results do not prec lude influenza or RSV virus infection and should not be used as the sole basis for treatment or other patient management decisions. 20 Negative results do not prec lude influenza or RSV virus infection and should not be used as the sole basis for treatment or other patient management decisions. 21 Negative results do not prec lude influenza or RSV virus infection and should not be used as the sole basis for treatment or other patient management decisions. 22 A false negative result may occur if a specimen is improperly collected, transported or handled. False negative results may also occur if inadequate numbers of organisms are present in the specimen. As with any molecular test, mutations within the target regions of X[employer] Xpress SARS-CoV-2 could affect primer and/or probe binding resulting in failure to detect the presence of virus. This test cannot rule out diseases caused by other bacterial or viral pathogens. DISCLAIMER: Testing was performed using the [employer] SARS-CoV-2 test. This test was developed and its performance characteristics determined by [employer]. This test has not been FDA cleared or approved. This test has been authorized by FDA under an Emergency Use Authorization (EUA). This test is only authorized for the duration of time the declaration that circumstances exist justifying the authorization of the emergency use of in vitro diagnostic tests for detection of SARS-CoV-2 virus and/or diagnosis of COVID-19 infection under section 564(b)(1) of the Act, 21 U.S.C. 360bbb-3(b)(1), unless the authorization is terminated or revoked sooner. 23 Y/N query for Sepsis Lactate Rule: Y 24 HEAD AND FACIAL NUMBNESS 25 Index Interpre tation --------- <135.00 Negative - Antibody not detected 135.00 - 164.99 Equivocal > or = 165.00 Positive - Antibody detected A positive result indicates that the patient has antibody to VZV but does not differentiate between an active or past infection. The clinical diagnosis must be interpreted in conjunction with the clinical signs and symptoms of the patient. This assay reliably measures immunity due to previous infection but may not be sensitive enough to detect antibodies induced by vaccination. Thus, a negative result in a vaccinated individual does not necessarily indicate susceptibility to VZV infection. A more sensitive test for vaccination-induced immunity is Varicella Zoster Virus Antibody Immunity Screen, ACIF. THIS TEST WAS PERFORMED AT: [facility] [address] ISABELLA BROWNE MD 26 < or = 0.90 Negative 0.91 - 1.09 Equivocal > or = 1.10 Positive Results from any one IgM assay should not be used as a sole determinant of a current or recent infection. Because an IgM test can yield false positive results and low levels of IgM antibody may persist for more than 12 months post infection, reliance on a single test result could be misleading. If an acute infection is suspected, consider obtaining a new specimen and submit for both IgG and IgM testing in two or more weeks. THIS TEST WAS PERFORMED AT: [facility] [id number] [address] SILVIA CORTEZ MD,PHD Procedures Date Code Description Status 10/21/2020 [id number] Diabetic Retinal Eye Exam Comple jennifer 10/07/2020 [id number] Diabetic Retinal Eye Exam Comple jennifer 10/05/2020 90801 Office/Outpatient Established Mo d MDM 30-39 Min Completed 10/03/2020 [id number] Diabetic Retinal Eye Exam Comple jennifer 08/18/2020 30779 Office/Outpatient Established Lo w MDM 20-29 Min Completed 08/01/2020 39799 Office/Outpatient Established Lo w MDM 20-29 Min Completed 06/13/2020 19100 Office/Outpatient Established SF MDM 10-19 Min Completed Medical Devices Description No Information Available Encounters Type Date Location Provider Dx Diagnosis Office Visit 10/05/2020 9:40a [facility]CYany Morales MD 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, 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 R13.10 Dysphagia, unspecified Z71.6 Tobacco abuse counseling F17.210 Nicotine dependence, cigaret marcelo, uncomplicated Office Visit 08/18/2020 8:20a [facility].CCELESTINE Suresh JR B02.8 Zoster with other complicati ons Office Visit 08/01/2020 9:40a [facility] PCELESTINE Lal JR R13.10 Dysphagia, unspecified K21.9 Gastro-esophageal reflux dis ease without esophagitis Office Visit 06/13/2020 3:20p [facility] PCELESTINE Lal JR K21.9 Gastro-esophageal reflux dis ease without esophagitis Assessments Date Code Description Provider 10/05/2020 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, unspecified Rashaun Morales MD 10/05/2020 C79.31 Secondary malignant neoplasm of brain Rashaun Morales MD 10/05/2020 R13.10 Dysphagia, unspecified Rashaun Morales MD 10/05/2020 Z71.6 Tobacco abuse counseling Rashaun Morales MD 10/05/2020 F17.210 Nicotine dependence, cigarettes, uncomplicated Rashaun Morales MD 08/18/2020 B02.8 Zoster with other complications CELESTINE Nassar JR 08/01/2020 R13.10 Dysphagia, unspecified CELESTINE Nassar JR 08/01/2020 K21.9 Gastro-esophageal reflux disease without esophagitis CELESTINE Nassar JR 06/13/2020 K21.9 Gastro-esophageal reflux disease without esophagitis CELESTINE Nassar JR Plan of Treatment 10/05/2020 - Rashaun Morales MD* 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, unspecified * C79.31 Secondary malignant neoplasm of brain * R13.10 Dysphagia, unspecified * Z71.6 Tobacco abuse counseling * F17.210 Nicotine dependence, cigarettes, uncomplicated* Comments:* Smoking cessation discussed. * All * New Medication:* No Active Medications - Functional Status Description No Information Available Mental Status Description No Information Available Referrals Refer to Reason for Referral Status Appt Date Anika Jarvis MD CONSULT FOR HEADACHES, NUMBNESS LT SIDE OF FACE Patient Notified 10/11/2020 [address] [place] [address] [phone] Sudhakar Gonsalves MD EMELY CONSULT FOR SCREENING EGD DX: ALISA OGDEN GERD AND DYSPHAGIA Patient Notified 11/07/2020 [facility] [address] [facility], [place] [address] [phone] Gimra Auguste MD CONSULT FOR SCREENING EGD Patient Notifi ed 09/15/2020 [address] [facility] [address] [phone]
--- OUTSIDE RECORDS SUMMARY | 2021-01-05 11:20 | CCD | Continuity of Care Document ---
Author Organization Unknown Address Unknown Phone Unavailable Care Team Providers Care Oil Lease Buyer Name Role Phone Rashaun Morales JR, MD AUT Unavailable Problems Description No Information Available Social [...] every 4 hours as needed for pain dpd=[id number] 120tabs Rashaun Morales MD 09/19/2020 - 10/05/2020 Nystatin [id number] Suspension 5cc swish and swallow five times [...] Date Facility Test Result H/L Range Note Comprehensive Metabolic Profil 11/15/[address] [address] [phone] Glucose, Fasting 101 mg/dL High 70-100 Blood Urea Nitrogen 12 mg/dL Normal 7-18 Creatinine For GFR 0.56 mg/dL Low 0.70-1.30 Glomerular Filtration Rate > 60.0 Normal >49 1 Sodium Level 129 mEq/L Low 136-145 [...] GM/DL Low 3.2-5.2 Albumin/Globulin Ratio 0.7 Normal CBC With Differential 11/15/[address] [address] [phone] White Blood Count 2.2 10 Low 4.0-10.0 [...] 36.0-66.0 Lymph % 16.4 % Low 24.0-44.0 Fulton % 36.5 % High 2.0-8.0 Eos % 2.3 % Normal 0.0-3.0 Baso % 0.9 % Normal 0.0-1.0 Immature Granulocyte % 0.5 % Normal 0-3.0 Nucleated Red Blood Cell % 0.0 % Normal 0-0 Neutrophils # 1.0 10 Low 1.5-8.5 Lymph # 0.4 10 Low 1.5-5.0 Fulton # 0.8 10 Normal 0.0-0.8 Eos # 0.1 10 Normal 0.0-0.5 Baso # 0.0 10 Normal 0.0-0.2 Comprehensive Metabolic Profil 11/10/[address] [address] [phone] Glucose, Fasting 107 mg/dL High 70-100 Blood Urea Nitrogen 11 mg/dL Normal 7-18 Creatinine For GFR 0.54 mg/dL Low 0.70-1.30 Glomerular Filtration Rate > 60.0 Normal >49 2 Sodium Level 129 mEq/L Low 136-145 [...] Ratio 0.9 Normal CBC With Differential 11/10/[address] [address] [phone] White Blood Count 3.6 10 Low 4.0-10.0 [...] 36.0-66.0 Lymph % 4.7 % Low 24.0-44.0 Fulton % 16.1 % High 2.0-8.0 Eos % 2.8 % Normal 0.0-3.0 Baso % 0.6 % Normal 0.0-1.0 Immature Granulocyte % 0.8 % Normal 0-3.0 Nucleated Red Blood Cell % 0.0 % Normal 0-0 Neutrophils # 2.7 10 Normal 1.5-8.5 Lymph # 0.2 10 Low 1.5-5.0 Fulton # 0.6 10 Normal 0.0-0.8 Eos # 0.1 10 Normal 0.0-0.5 Baso # 0.0 10 Normal 0.0-0.2 Laboratory test finding 11/10/[address] [address] [phone] Immature Platelet Fraction 3.8 % Normal 0.0-1 0.91 CBC With Differential 10/31/[address] [address] [phone] White Blood Count 6.3 10 Normal 4.0-10.0 [...] 36.0-66.0 Lymph % 2.7 % Low 24.0-44.0 Fulton % 11.9 % High 2.0-8.0 Eos % 2.7 % Normal 0.0-3.0 Baso % 0.3 % Normal 0.0-1.0 Immature Granulocyte % 1.4 % Normal 0-3.0 Nucleated Red Blood Cell % 0.0 % Normal 0-0 Neutrophils # 5.1 10 Normal 1.5-8.5 Lymph # 0.2 10 Low 1.5-5.0 Fulton # 0.8 10 Normal 0.0-0.8 Eos # 0.2 10 Normal 0.0-0.5 Baso # 0.0 10 Normal 0.0-0.2 Comprehensive Metabolic Profil 10/31/[address] [address] [phone] Glucose, Fasting 101 mg/dL High 70-100 Blood Urea Nitrogen 8 mg/dL Normal 7-18 Creatinine For GFR 0.48 mg/dL Low 0.70-1.30 Glomerular Filtration Rate > 60.0 Normal >49 3 Sodium Level 131 mEq/L Low 136-145 Potassium [...] GM/DL Low 3.2-5.2 Albumin/Globulin Ratio 0.9 Normal Laboratory test finding 10/31/2020 [facility] [address] [place] [address] [phone] Carcinoembryonic Antigen 30.5 NG/ML High <2.5 4 FT4&TSH Panel 10/31/2020 [facility] nter [address] [place] [address] [phone] Thyroid Stimulating Hormone 0.394 uIU/ML Normal 0. 358-3.740 Free T4 1.31 ng/dL Normal 0.76-1.46 CBC With Differential 10/14/[address] [address] [phone] White Blood Count 9.4 10 Normal 4.0-10.0 [...] 36.0-66.0 Lymph % 5.2 % Low 24.0-44.0 Fulton % 6.9 % Normal 2.0-8.0 Eos % 2.5 % Normal 0.0-3.0 Baso % 0.2 % Normal 0.0-1.0 Immature Granulocyte % 1.0 % Normal 0-3.0 Nucleated Red Blood Cell % 0.0 % Normal 0-0 Neutrophils # 8.0 10 Normal 1.5-8.5 Lymph # 0.5 10 Low 1.5-5.0 Fulton # 0.7 10 Normal 0.0-0.8 Eos # 0.2 10 Normal 0.0-0.5 Baso # 0.0 10 Normal 0.0-0.2 Basic Metabolic Profile 10/14/[address] [address] [phone] Glucose, Fasting 107 mg/dL High 70-100 Blood [...] 8-16 Calcium Level 8.9 mg/dL Normal 8.8-10.2 PT & Aptt 09/20/2020 [facility] nter [address] [place] [address] [phone] Prothrombin Time 12.2 seconds Normal 12.5-14.3 Inr 0.89 Normal 6 Partial Thromboplastin Time 26.8 seconds Normal 24.2-38.5 Laboratory test finding 09/20/[address] [address] [phone] Carcinoembryonic Antigen 8.2 NG/ML High <2.5 7 Comprehensive Metabolic Profil 09/20/[address] [address] [phone] Glucose, Fasting 110 mg/dL High 70-100 Blood Urea Nitrogen 9 mg/dL Normal 7-18 Creatinine For GFR 0.70 mg/dL Normal 0.70-1.30 Glomerular Filtration Rate > 60.0 Normal >49 8 Sodium Level 131 mEq/L Low 136-145 Potassium [...] Albumin/Globulin Ratio 1.1 Normal CBC With Differential 09/20/[address] [address] [phone] White Blood Count 11.0 10 High 4.0-10.0 [...] 36.0-66.0 Lymph % 9.2 % Low 24.0-44.0 Fulton % 9.7 % High 2.0-8.0 Eos % 0.8 % Normal 0.0-3.0 Baso % 0.3 % Normal 0.0-1.0 Immature Granulocyte % 0.8 % Normal 0-3.0 Nucleated Red Blood Cell % 0.0 % Normal 0-0 Neutrophils # 8.7 10 High 1.5-8.5 Lymph # 1.0 10 Low 1.5-5.0 Fulton # 1.1 10 High 0.0-0.8 Eos # 0.1 10 Normal 0.0-0.5 Baso # 0.0 10 Normal 0.0-0.2 Influenza A/B RSV Covid Amp 09/08/2020 [facility] [address] [place] [address] [phone] Influenza A Amplification NEGATIVE Normal Negati ve 9 Influenza B Amplification NEGATIVE Normal Negative 10 RSV Amplification NEGATIVE Normal Negative 11 Sars Covid-19 Amplification NEGATIVE Normal Negative 12 Istat Chem8+ Panel 09/08/2020 [facility] nter [address] [place], [place] [address] [phone] iSTAT HCT 50.0 % Normal 38.0-51.0 iSTAT Glucose 115 mg/dL High 70-105 iSTAT Sodium 134 mEq/L Low 136-145 iSTAT Potassium 3.9 mEq/L Normal 3.5-5.1 iSTAT CA++ 4.7 mg/dL Normal 4.5-5.3 iSTAT Chloride 95 mEq/L Low 98-109 iSTAT Co2 24.0 MM/L Normal 23.0-27.0 iSTAT BUN 6 mg/dL Low 8-26 iSTAT Creatinine 0.8 mg/dL Normal 0.6-1.3 CBC With Differential 09/08/2020 [facility] [address] [place] [address] [phone] White Blood Count 7.7 10 Normal 4.0-10.0 [...] 36.0-66.0 Lymph % 13.3 % Low 24.0-44.0 Fulton % 11.1 % High 2.0-8.0 Eos % 1.6 % Normal 0.0-3.0 Baso % 0.1 % Normal 0.0-1.0 Immature Granulocyte % 0.7 % Normal 0-3.0 Nucleated Red Blood Cell % 0.0 % Normal 0-0 Neutrophils # 5.6 10 Normal 1.5-8.5 Lymph # 1.0 10 Low 1.5-5.0 Fulton # 0.9 10 High 0.0-0.8 Eos # 0.1 10 Normal 0.0-0.5 Baso # 0.0 10 Normal 0.0-0.2 Liver Profile 09/08/2020 [facility] nter [address] [place], [place] [address] [phone] Ast/Sgot 16 U/L Normal 7-37 Alt/SGPT 21 U/L Normal 12-78 Alkaline Phosphatase 117 U/L Normal 45-117 Bilirubin,Total 0.7 mg/dL Normal 0.2-1.0 Bilirubin,Direct 0.2 mg/dL Normal 0.0-0.2 Total Protein 6.7 GM/DL Normal 6.4-8.2 Albumin 3.5 GM/DL Normal 3.2-5.2 Albumin/Globulin Ratio 1.1 Normal Laboratory test finding 09/08/2020 [facility] [address] [place], [place] [address] [phone] Lipase 78 U/L Normal 73-393 Lactic Acid Sepsis Protocol 1.2 mmol/L Normal 0.4-2.0 13 CBC With Auto Diff 08/13/[address] [address] [phone] WBC # Bld Auto 8.4 10*3/uL Normal 4.45-10.71 14 RBC # Bld Auto 5.36 10*6/uL Normal [...] diff Bld NO Laboratory test finding 08/13/[address] [address] [phone] Esr Bld Qn Westrgrn 1 [facility] Normal 0-20 Comprehensive Metabolic Prof 08/13/2020 [facility] [address] [place] [address] [phone] BUN SerPl-mCnc 6 mg/dL Low 9-23 Sodium [...] g/dL Normal 5.7-8.2 Laboratory test finding 08/13/2020 [facility] [address] [place] [address] [phone] CRP SerPl-mCnc Less Than 2.9 Normal 0.0-5.0 VZV IgG Ser-aCnc 1888.00 [facility] 15 VZV IgM Ser-aCnc <=0.90 <=0.90 16 1 Units are mL/min/1.73 m2 Chronic Kidney Disease Staging per NKF: Stage I & II GFR >=60 Normal to Mildly Decreased Stage III GFR 30-59 Moderately Decreased Stage IV GFR 15-29 Severely Decreased Stage V GFR <15 Very Little GFR Left ESRD GFR <15 on STEAM FITTER HELPER 2 Units are mL/min/1.73 m2 Chronic Kidney Disease Staging per NKF: Stage I & II GFR >=60 Normal to Mildly Decreased Stage III GFR 30-59 Moderately Decreased Stage IV GFR 15-29 Severely Decreased Stage V GFR <15 Very Little GFR Left ESRD GFR <15 on STEAM FITTER HELPER 3 Units are mL/min/1.73 m2 Chronic Kidney Disease Staging per NKF: Stage I & II GFR >=60 Normal to Mildly Decreased Stage III GFR 30-59 Moderately Decreased Stage IV GFR 15-29 Severely Decreased Stage V GFR <15 Very Little GFR Left ESRD GFR <15 on STEAM FITTER HELPER 4 THE CEA ASSAY IS PERFORMED O N THE [employer] BY CHEMILUMINESCENCE AND SHOULD NOT BE COMPARED INTERCHANGEABLY WITH OTHER METHODS. IT SHOULD NOT BE USED ALONE A SCREENING TEST OR DIAGNOSIS FOR THE PRESENCE OR ABSENCE OF MALIGNANT DISEASE. PREDICTIONS OF DISEASE RECURRENCE SHOULD NOT BE BASED SOLELY ON VALUES OBTAINED FROM SERIAL PATIENT SERUM VALUES. 5 Units are mL/min/1.73 m2 Chronic Kidney Disease Staging per NKF: Stage I & II GFR >=60 Normal to Mildly Decreased Stage III GFR 30-59 Moderately Decreased Stage IV GFR 15-29 Severely Decreased Stage V GFR <15 Very Little GFR Left ESRD GFR <15 on STEAM FITTER HELPER 6 THERAPUTIC HUMAN INR VALUES INDICATIONS NORMAL RANGES PROPHYLAXIS/TREATMENT OF: VENOUS THROMBOSIS 2.0-3.0 PULMONARY EMBOLISM 2.0-3.0 PREVENTION OF SYSTEMIC EMBOLISM FROM: TISSUE HEART VALVES 2.0-3.0 ACUTE MYOCARDIAL INFARCTION 2.0-3.0 VALVULAR HEART DISEASE 2.0-3.0 ATRIAL FIBRILLATION 2.0-3.0 MECHANICAL VALVES(HIGH RISK) 2.5-3.5 RECURRENT MYOCARDIAL INFARCTION 2.5-3.5 7 THE CEA ASSAY IS PERFORMED O N THE [employer] BY CHEMILUMINESCENCE AND SHOULD NOT BE COMPARED INTERCHANGEABLY WITH OTHER METHODS. IT SHOULD NOT BE USED ALONE A SCREENING TEST OR DIAGNOSIS FOR THE PRESENCE OR ABSENCE OF MALIGNANT DISEASE. PREDICTIONS OF DISEASE RECURRENCE SHOULD NOT BE BASED SOLELY ON VALUES OBTAINED FROM SERIAL PATIENT SERUM VALUES. 8 Units are mL/min/1.73 m2 Chronic Kidney Disease Staging per NKF: Stage I & II GFR >=60 Normal to Mildly Decreased Stage III GFR 30-59 Moderately Decreased Stage IV GFR 15-29 Severely Decreased Stage V GFR <15 Very Little GFR Left ESRD GFR <15 on STEAM FITTER HELPER 9 Negative results do not prec lude influenza or RSV virus infection and should not be used as the sole basis for treatment or other patient management decisions. 10 Negative results do not prec lude influenza or RSV virus infection and should not be used as the sole basis for treatment or other patient management decisions. 11 Negative results do not prec lude influenza or RSV virus infection and should not be used as the sole basis for treatment or other patient management decisions. 12 A false negative result may occur if [...] pathogens. DISCLAIMER: Testing was performed using the [employer] SARS-CoV-2 test. This test was developed and its performance characteristics determined by [employer]. This test has not been FDA cleared [...] the authorization is terminated or revoked sooner. 13 Y/N query for Sepsis Lactate Rule: Y 14 HEAD AND FACIAL NUMBNESS 15 Index Interpre tation --------- <135.00 Negative - [...] Screen, ACIF. THIS TEST WAS PERFORMED AT: [facility] [address] ISABELLA BROWNE MD 16 < or = 0.90 Negative 0.91 - [...] more weeks. THIS TEST WAS PERFORMED AT: [facility]/[address] [address] SILVIA CORTEZ MD,PHD Procedures Date Code Description Status 10/21/2020 [id number] Diabetic Retinal Eye Exam [facility]ple [facility] 10/07/2020 [id number] Diabetic Retinal Eye Exam Comple [facility] 10/05/2020 [address]32[address] Office/Outpatient Established Mo d MDM 30-39 Min Completed 10/03/2020 [id number] Diabetic Retinal Eye Exam [facility]ple 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 R13.10 Dysphagia, unspecified Z71.6 Tobacco abuse counseling F17.210 Nicotine dependence, cigaret marcelo, uncomplicated Office Visit 08/18/2020 8:20a [facility], [place] B02.8 Zoster with other complicati ons Office Visit 08/01/2020 9:40a [facility] JR, [place] R13.10 Dysphagia, unspecified K21.9 Gastro-esophageal reflux dis ease without esophagitis Office Visit 06/13/2020 3:20p Arnaldo Nair JR, PA K21.9 Gastro-esophageal reflux dis ease without esophagitis [...] esophagitis CELESTINE Nassar JR Plan of Treatment Future Appointment(s):* 12/02/2020 8:50 am - Lab Schedule at [facility] * 12/06/2020 11:40 am - Rashaun Morales MD at [facility] 10/05/2020 - Rashaun Morales MD* C15.9 Malignant [...] SIDE OF FACE Patient Notified 10/11/2020 [address] [place], [place] [address] [phone] Sudhakar Gonsalves MD EMELY CONSULT FOR SCREENING EGD DX: ALISA RE GERD AND DYSPHAGIA Patient Notified 11/07/2020 [facility] [address] [facility], [place] [address] [phone] Girma Auguste MD CONSULT FOR SCREENING EGD Patient Notifi ed 09/15/[address] [place] [address] [phone]
--- OUTSIDE RECORDS SUMMARY | 2021-01-05 11:20 | CCD | Continuity of Care Document ---
Author Organization Unknown Address Unknown Phone Unavailable Care Team Providers Care [employer] Developer Name Role Phone Rashaun Moralse JR, MD AUT Unavailable Problems Description No [...] every 4 hours as needed for pain bhb=[id number] 120tabs Rashaun Morales MD 09/19/2020 - 10/05/2020 Nystatin [id number] Suspension 5cc swish and swallow five times [...] Result H/L Range Note Comprehensive Metabolic Profil 11/22/[address] [address] [phone] Glucose, Fasting 104 mg/dL High 70-100 Blood Urea Nitrogen 8 mg/dL Normal 7-18 Creatinine For GFR 0.67 mg/dL Low 0.70-1.30 Glomerular Filtration Rate > 60.0 Normal >49 1 Sodium Level 131 mEq/L Low 136-145 Potassium [...] Ratio 0.7 Normal Laboratory test finding 11/22/[address] [address] [phone] Carcinoembryonic Antigen 12.2 NG/ML High <2.5 2 Thyroid Stimulating Hormone 0.432 uIU/ML Normal 0.358-3.740 Free T4 1.59 ng/dL High 0.76-1.46 CBC With Differential 11/22/[address] [address] [phone] White Blood Count 8.5 10 Normal 4.0-10.0 [...] 36.0-66.0 Lymph % 10.5 % Low 24.0-44.0 [place] % 14.7 % High 2.0-8.0 Eos % 0.8 % Normal 0.0-3.0 Baso % 0.7 % Normal 0.0-1.0 Immature Granulocyte % 4.5 % High 0-3.0 Nucleated Red Blood Cell % 0.0 % Normal 0-0 Neutrophils # 5.8 10 Normal 1.5-8.5 Lymph # 0.9 10 Low 1.5-5.0 [place] # 1.3 10 High 0.0-0.8 Eos # 0.1 10 Normal 0.0-0.5 Baso # 0.1 10 Normal 0.0-0.2 CBC With Differential 11/15/[address] [address] [phone] White Blood Count 2.2 10 Low 4.0-10.0 [...] 36.0-66.0 Lymph % 16.4 % Low 24.0-44.0 [place] % 36.5 % High 2.0-8.0 Eos % 2.3 % Normal 0.0-3.0 Baso % 0.9 % Normal 0.0-1.0 Immature Granulocyte % 0.5 % Normal 0-3.0 Nucleated Red Blood Cell % 0.0 % Normal 0-0 Neutrophils # 1.0 10 Low 1.5-8.5 Lymph # 0.4 10 Low 1.5-5.0 [place] # 0.8 10 Normal 0.0-0.8 Eos # 0.1 10 Normal 0.0-0.5 Baso # 0.0 10 Normal 0.0-0.2 Comprehensive Metabolic Profil 11/15/[address] [address] [phone] Glucose, Fasting 101 mg/dL High 70-100 Blood Urea Nitrogen 12 mg/dL Normal 7-18 Creatinine For GFR 0.56 mg/dL Low 0.70-1.30 Glomerular Filtration Rate > 60.0 Normal >49 3 Sodium Level 129 mEq/L Low 136-145 Potassium [...] Ratio 0.7 Normal Comprehensive Metabolic Profil 11/10/[address] [id number] [phone] Glucose, Fasting 107 mg/dL High 70-100 Blood Urea Nitrogen 11 mg/dL Normal 7-18 Creatinine For GFR 0.54 mg/dL Low 0.70-1.30 Glomerular Filtration Rate > 60.0 Normal >49 4 Sodium Level 129 mEq/L Low 136-145 Potassium [...] Ratio 0.9 Normal CBC With Differential 11/10/[address] [address] [phone] White Blood Count 3.6 10 Low 4.0-10.0 [...] 36.0-66.0 Lymph % 4.7 % Low 24.0-44.0 [place] % 16.1 % High 2.0-8.0 Eos % 2.8 % Normal 0.0-3.0 Baso % 0.6 % Normal 0.0-1.0 Immature Granulocyte % 0.8 % Normal 0-3.0 Nucleated Red Blood Cell % 0.0 % Normal 0-0 Neutrophils # 2.7 10 Normal 1.5-8.5 Lymph # 0.2 10 Low 1.5-5.0 [place] # 0.6 10 Normal 0.0-0.8 Eos # 0.1 10 Normal 0.0-0.5 Baso # 0.0 10 Normal 0.0-0.2 Laboratory test finding 11/10/[address] [address] [phone] Immature Platelet Fraction 3.8 % Normal 0.0-1 0.91 CBC With Differential 10/31/[address] [address] [phone] White Blood Count 6.3 10 Normal 4.0-10.0 [...] 36.0-66.0 Lymph % 2.7 % Low 24.0-44.0 [place] % 11.9 % High 2.0-8.0 Eos % 2.7 % Normal 0.0-3.0 Baso % 0.3 % Normal 0.0-1.0 Immature Granulocyte % 1.4 % Normal 0-3.0 Nucleated Red Blood Cell % 0.0 % Normal 0-0 Neutrophils # 5.1 10 Normal 1.5-8.5 Lymph # 0.2 10 Low 1.5-5.0 [place] # 0.8 10 Normal 0.0-0.8 Eos # 0.2 10 Normal 0.0-0.5 Baso # 0.0 10 Normal 0.0-0.2 Comprehensive Metabolic Profil 10/31/[address] [address] [phone] Glucose, Fasting 101 mg/dL High 70-100 Blood Urea Nitrogen 8 mg/dL Normal 7-18 Creatinine For GFR 0.48 mg/dL Low 0.70-1.30 Glomerular Filtration Rate > 60.0 Normal >49 5 Sodium Level 131 mEq/L Low 136-145 Potassium [...] Ratio 0.9 Normal Laboratory test finding 10/31/[address] [address] [phone] Carcinoembryonic Antigen 30.5 NG/ML High <2.5 6 FT4&TSH Panel 10/31/2020 [facility]ter [address] [place] [phone] Thyroid Stimulating Hormone 0.394 uIU/ML Normal 0. 358-3.740 Free T4 1.31 ng/dL Normal 0.76-1.46 Basic Metabolic Profile 10/14/[address] [address] [phone] Glucose, Fasting 107 mg/dL High 70-100 Blood Urea Nitrogen 8 mg/dL Normal 7-18 Creatinine For GFR 0.46 mg/dL Low 0.70-1.30 Glomerular Filtration Rate > 60.0 Normal >49 7 Sodium Level 130 mEq/L Low 136-145 Potassium Serum 4.2 mEq/L Normal 3.5-5.1 Chloride Level 96 mEq/L Low 98-107 Carbon Dioxide Level 24 mEq/L Normal 21-32 Anion Gap 10 mEq/L Normal 8-16 Calcium Level 8.9 mg/dL Normal 8.8-10.2 CBC With Differential 10/14/[address] [address] [phone] White Blood Count 9.4 10 Normal 4.0-10.0 [...] 36.0-66.0 Lymph % 5.2 % Low 24.0-44.0 [place] % 6.9 % Normal 2.0-8.0 Eos % 2.5 % Normal 0.0-3.0 Baso % 0.2 % Normal 0.0-1.0 Immature Granulocyte % 1.0 % Normal 0-3.0 Nucleated Red Blood Cell % 0.0 % Normal 0-0 Neutrophils # 8.0 10 Normal 1.5-8.5 Lymph # 0.5 10 Low 1.5-5.0 [place] # 0.7 10 Normal 0.0-0.8 Eos # 0.2 10 Normal 0.0-0.5 Baso # 0.0 10 Normal 0.0-0.2 CBC With Differential 09/20/2020 [place] [id number] [phone] White Blood Count 11.0 10 High 4.0-10.0 [...] 36.0-66.0 Lymph % 9.2 % Low 24.0-44.0 [place] % 9.7 % High 2.0-8.0 Eos % 0.8 % Normal 0.0-3.0 Baso % 0.3 % Normal 0.0-1.0 Immature Granulocyte % 0.8 % Normal 0-3.0 Nucleated Red Blood Cell % 0.0 % Normal 0-0 Neutrophils # 8.7 10 High 1.5-8.5 Lymph # 1.0 10 Low 1.5-5.0 [place] # 1.1 10 High 0.0-0.8 Eos # 0.1 10 Normal 0.0-0.5 Baso # 0.0 10 Normal 0.0-0.2 PT & Aptt 09/20/2020 [facility] [address] [place] [address] [phone] Prothrombin Time 12.2 seconds Normal 12.5-14.3 Inr 0.89 Normal 8 Partial Thromboplastin Time 26.8 seconds Normal 24.2-38.5 Comprehensive Metabolic Profil 09/20/[address] [address] [phone] Glucose, Fasting 110 mg/dL High 70-100 Blood [...] Ratio 1.1 Normal Laboratory test finding 09/20/2020 [facility] [address] [place] [address] [phone] Carcinoembryonic Antigen 8.2 NG/ML High <2.5 10 Influenza A/B RSV Covid Amp 09/08/[address] [address] [phone] Influenza A Amplification NEGATIVE Normal Negati ve 11 Influenza B Amplification NEGATIVE Normal Negative 12 RSV Amplification NEGATIVE Normal Negative 13 Sars Covid-19 Amplification NEGATIVE Normal Negative 14 Istat Chem8+ Panel 09/08/2020 [facility] n[facility] [address] [place] [address] [phone] iSTAT HCT 50.0 % Normal 38.0-51.0 iSTAT Glucose 115 mg/dL High 70-105 iSTAT Sodium 134 mEq/L Low 136-145 iSTAT Potassium 3.9 mEq/L Normal 3.5-5.1 iSTAT CA++ 4.7 mg/dL Normal 4.5-5.3 iSTAT Chloride 95 mEq/L Low 98-109 iSTAT Co2 24.0 MM/L Normal 23.0-27.0 iSTAT BUN 6 mg/dL Low 8-26 iSTAT Creatinine 0.8 mg/dL Normal 0.6-1.3 CBC With Differential 09/08/2020 [facility] [address] [place] [address] [phone] White Blood Count 7.7 10 Normal 4.0-10.0 [...] 36.0-66.0 Lymph % 13.3 % Low 24.0-44.0 [place] % 11.1 % High 2.0-8.0 Eos % 1.6 % Normal 0.0-3.0 Baso % 0.1 % Normal 0.0-1.0 Immature Granulocyte % 0.7 % Normal 0-3.0 Nucleated Red Blood Cell % 0.0 % Normal 0-0 Neutrophils # 5.6 10 Normal 1.5-8.5 Lymph # 1.0 10 Low 1.5-5.0 [place] # 0.9 10 High 0.0-0.8 Eos # 0.1 10 Normal 0.0-0.5 Baso # 0.0 10 Normal 0.0-0.2 Liver Profile 09/08/2020 [facility] n[facility] [address] [place], [place] [phone] Ast/Sgot 16 U/L Normal 7-37 Alt/SGPT 21 U/L Normal 12-78 Alkaline Phosphatase 117 U/L Normal 45-117 Bilirubin,Total 0.7 mg/dL Normal 0.2-1.0 Bilirubin,Direct 0.2 mg/dL Normal 0.0-0.2 Total Protein 6.7 GM/DL Normal 6.4-8.2 Albumin 3.5 GM/DL Normal 3.2-5.2 Albumin/Globulin Ratio 1.1 Normal Laboratory test finding 09/08/2020 [facility] [address] [place] [address] [phone] Lipase 78 U/L Normal 73-393 Lactic Acid Sepsis Protocol 1.2 mmol/L Normal 0.4-2.0 15 CBC With Auto Diff 08/13/2020 [facility] [address] [place] [address] [phone] WBC # Bld Auto 8.4 10*3/uL Normal 4.45-10.71 16 RBC # Bld Auto 5.36 10*6/uL Normal [...] diff Bld NO Laboratory test finding 08/13/[address] [address] [phone] Esr Bld Qn Westrgrn 1 [facility] Normal 0-20 Comprehensive Metabolic Prof 08/13/[address] [address] [phone] BUN SerPl-mCnc 6 mg/dL Low 9-23 Sodium [...] g/dL Normal 5.7-8.2 Laboratory test finding 08/13/2020 [facility] [address] [place] [id number] [phone] CRP SerPl-mCnc Less Than 2.9 Normal 0.0-5.0 VZV IgG Ser-aCnc 1888.00 [facility] 17 VZV IgM Ser-aCnc <=0.90 <=0.90 18 1 Units are mL/min/1.73 m2 Chronic Kidney Disease Staging per NKF: Stage I & II GFR >=60 Normal to Mildly Decreased Stage III GFR 30-59 Moderately Decreased Stage IV GFR 15-29 Severely Decreased Stage V GFR <15 Very Little GFR Left ESRD GFR <15 on AMER[employer] L[employer]AGE TE[employer]ER 2 THE CEA ASSAY IS PERFORMED O N THE [place] BY CHEMILUMINESCENCE AND SHOULD NOT BE COMPARED INTERCHANGEABLY WITH OTHER METHODS. IT SHOULD NOT BE USED ALONE A SCREENING TEST OR DIAGNOSIS FOR THE PRESENCE OR ABSENCE OF MALIGNANT DISEASE. PREDICTIONS OF DISEASE RECURRENCE SHOULD NOT BE BASED SOLELY ON VALUES OBTAINED FROM SERIAL PATIENT SERUM VALUES. 3 Units are mL/min/1.73 m2 Chronic Kidney Disease Staging per NKF: Stage I & II GFR >=60 Normal to Mildly Decreased Stage III GFR 30-59 Moderately Decreased Stage IV GFR 15-29 Severely Decreased Stage V GFR <15 Very Little GFR Left ESRD GFR <15 on [employer] L[employer]AGE TE[employer]ER 4 Units are mL/min/1.73 m2 Chronic Kidney Disease Staging per NKF: Stage I & II GFR >=60 Normal to Mildly Decreased Stage III GFR 30-59 Moderately Decreased Stage IV GFR 15-29 Severely Decreased Stage V GFR <15 Very Little GFR Left ESRD GFR <15 on [employer] TE[employer]ER 5 Units are mL/min/1.73 m2 Chronic Kidney Disease Staging per NKF: Stage I & II GFR >=60 Normal to Mildly Decreased Stage III GFR 30-59 Moderately Decreased Stage IV GFR 15-29 Severely Decreased Stage V GFR <15 Very Little GFR Left ESRD GFR <15 on AMER[employer] S[employer] LANGUAGE TEACHER 6 THE CEA ASSAY IS PERFORMED O N THE [place] BY CHEMILUMINESCENCE AND SHOULD NOT BE COMPARED INTERCHANGEABLY WITH OTHER METHODS. IT SHOULD NOT BE USED ALONE A SCREENING TEST OR DIAGNOSIS FOR THE PRESENCE OR ABSENCE OF MALIGNANT DISEASE. PREDICTIONS OF DISEASE RECURRENCE SHOULD NOT BE BASED SOLELY ON VALUES OBTAINED FROM SERIAL PATIENT SERUM VALUES. 7 Units are mL/min/1.73 m2 Chronic Kidney Disease Staging per NKF: Stage I & II GFR >=60 Normal to Mildly Decreased Stage III GFR 30-59 Moderately Decreased Stage IV GFR 15-29 Severely Decreased Stage V GFR <15 Very Little GFR Left ESRD GFR <15 on [employer] L[employer]AGE TE[employer]ER 8 THERAPUTIC HUMAN INR VALUES INDICATIONS NORMAL RANGES PROPHYLAXIS/TREATMENT OF: VENOUS THROMBOSIS 2.0-3.0 PULMONARY EMBOLISM 2.0-3.0 PREVENTION OF SYSTEMIC EMBOLISM FROM: TISSUE HEART VALVES 2.0-3.0 ACUTE MYOCARDIAL INFARCTION 2.0-3.0 VALVULAR HEART DISEASE 2.0-3.0 ATRIAL FIBRILLATION 2.0-3.0 MECHANICAL VALVES(HIGH RISK) 2.5-3.5 RECURRENT MYOCARDIAL INFARCTION 2.5-3.5 9 Units are mL/min/1.73 m2 Chronic Kidney Disease Staging per NKF: Stage I & II GFR >=60 Normal to Mildly Decreased Stage III GFR 30-59 Moderately Decreased Stage IV GFR 15-29 Severely Decreased Stage V GFR <15 Very Little GFR Left ESRD GFR <15 on AMER[employer] S[employer] LANG[employer]AGE TEACHER 10 THE CEA ASSAY IS PERFORMED O N THE [place] BY CHEMILUMINESCENCE AND SHOULD NOT BE COMPARED INTERCHANGEABLY WITH OTHER METHODS. IT SHOULD NOT BE USED ALONE A SCREENING TEST OR DIAGNOSIS FOR THE PRESENCE OR ABSENCE OF MALIGNANT DISEASE. PREDICTIONS OF DISEASE RECURRENCE SHOULD NOT BE BASED SOLELY ON VALUES OBTAINED FROM SERIAL PATIENT SERUM VALUES. 11 Negative results do not prec lude influenza or RSV virus infection and should not be used as the sole basis for treatment or other patient management decisions. 12 Negative results do not prec lude influenza or RSV virus infection and should not be used as the sole basis for treatment or other patient management decisions. 13 Negative results do not prec lude influenza or RSV virus infection and should not be used as the sole basis for treatment or other patient management decisions. 14 A false negative result may occur if [...] pathogens. DISCLAIMER: Testing was performed using the [employer] SARS-CoV-2 test. This test was developed and its performance characteristics determined by [employer]. This test has not been FDA cleared [...] the authorization is terminated or revoked sooner. 15 Y/N query for Sepsis Lactate Rule: Y 16 HEAD AND FACIAL NUMBNESS 17 Index Interpre tation --------- <135.00 Negative - [...] Screen, ACIF. THIS TEST WAS PERFORMED AT: [address] [address] ISABELLA BROWNE MD 18 < or = 0.90 Negative 0.91 - [...] more weeks. THIS TEST WAS PERFORMED AT: [facility] [address] [place] [address] SILVIA CORTEZ MD,PHD Procedures Date Code Description Status 10/21/2020 722682910 Diabetic Retinal Eye Exam Comple jenniefr 10/07/2020 [id number] Diabetic Retinal Eye Exam Comple jennifer 10/05/2020 49261 Office/Outpatient Established Mo d MDM 30-39 Min Completed 10/03/2020 906863475 Diabetic Retinal Eye Exam Comple jennifer 08/18/2020 71598 Office/Outpatient Established Lo w MDM 20-29 Min Completed 08/01/2020 92036 Office/Outpatient Established Lo w MDM 20-29 Min Completed 06/13/2020 23774 Office/Outpatient Established SF MDM 10-19 Min Completed Medical Devices Description No Information Available Encounters Type Date Location Provider Dx Diagnosis Office Visit 10/05/2020 9:40a [facility], P.Abdifatah Morales MD 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, 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 * 12/06/2020 11:40 am - [facility] 10/05/2020 - Rashaun Morales MD* C15.9 [...] SIDE OF FACE Patient Notified 10/11/2020 [address] [place] [address] [phone] Sudhakar Gonsalves MD EMELY CONSULT FOR SCREENING EGD DX: ALISA OGDEN GERD AND DYSPHAGIA Patient Notified 11/07/2020 [facility] [address] [facility], [place] [address] [phone] Girma Auguste MD CONSULT FOR SCREENING EGD Patient Notifi ed 09/15/2020 [address] [facility] [address] [phone]
--- OUTSIDE RECORDS SUMMARY | 2021-01-05 11:21 | CCD | Continuity of Care Document ---
Author Organization Unknown Address Unknown Phone Unavailable Care Team Providers Care Manager Epic Name Role Phone Rashaun Morales JR, MD [...] every 4 hours as needed for pain [id number] 120tabs Rashaun Morales MD 09/19/2020 - 10/05/2020 Nystatin [id number] Suspension 5cc swish and swallow five times [...] Result H/L Range Note Comprehensive Metabolic Profil 10/31/[address] [address] [phone] Glucose, Fasting 101 mg/dL High 70-100 Blood [...] Ratio 0.9 Normal Laboratory test finding 10/31/2020 [facility] [address] [place] [address] [phone] Carcinoembryonic Antigen 30.5 NG/ML High <2.5 2 FT4&TSH Panel 10/31/2020 [facility] nter [address] [place] [address] [phone] Thyroid Stimulating Hormone 0.394 uIU/ML Normal 0. 358-3.740 Free T4 1.31 ng/dL Normal 0.76-1.46 CBC With Differential 10/31/[address] [address] [phone] White Blood Count 6.3 10 Normal 4.0-10.0 [...] 36.0-66.0 Lymph % 2.7 % Low 24.0-44.0 [place] % 11.9 % High 2.0-8.0 Eos % 2.7 % Normal 0.0-3.0 Baso % 0.3 % Normal 0.0-1.0 Immature Granulocyte % 1.4 % Normal 0-3.0 Nucleated Red Blood Cell % 0.0 % Normal 0-0 Neutrophils # 5.1 10 Normal 1.5-8.5 Lymph # 0.2 10 Low 1.5-5.0 [place] # 0.8 10 Normal 0.0-0.8 Eos # 0.2 10 Normal 0.0-0.5 Baso # 0.0 10 Normal 0.0-0.2 CBC With Differential 10/14/2020 [place] [address]1301 [phone] White Blood Count 9.4 10 Normal 4.0-10.0 [...] 36.0-66.0 Lymph % 5.2 % Low 24.0-44.0 [place] % 6.9 % Normal 2.0-8.0 Eos % 2.5 % Normal 0.0-3.0 Baso % 0.2 % Normal 0.0-1.0 Immature Granulocyte % 1.0 % Normal 0-3.0 Nucleated Red Blood Cell % 0.0 % Normal 0-0 Neutrophils # 8.0 10 Normal 1.5-8.5 Lymph # 0.5 10 Low 1.5-5.0 [place] # 0.7 10 Normal 0.0-0.8 Eos # 0.2 10 Normal 0.0-0.5 Baso # 0.0 10 Normal 0.0-0.2 Basic Metabolic Profile 10/14/[address] [address] [phone] Glucose, Fasting 107 mg/dL High 70-100 Blood Urea Nitrogen 8 mg/dL Normal 7-18 Creatinine For GFR 0.46 mg/dL Low 0.70-1.30 Glomerular Filtration Rate > 60.0 Normal >49 3 Sodium Level 130 mEq/L Low 136-145 Potassium Serum 4.2 mEq/L Normal 3.5-5.1 Chloride Level 96 mEq/L Low 98-107 Carbon Dioxide Level 24 mEq/L Normal 21-32 Anion Gap 10 mEq/L Normal 8-16 Calcium Level 8.9 mg/dL Normal 8.8-10.2 Laboratory test finding 09/20/[address] [address] [phone] Carcinoembryonic Antigen 8.2 NG/ML High <2.5 4 Comprehensive Metabolic Profil 09/20/[address] [address] [phone] Glucose, Fasting 110 mg/dL High 70-100 Blood [...] GM/DL Normal 3.2-5.2 Albumin/Globulin Ratio 1.1 Normal PT & Aptt 09/20/2020 [facility] nter [address] [place] [address] [phone] Prothrombin Time 12.2 seconds Normal 12.5-14.3 Inr 0.89 Normal 6 Partial Thromboplastin Time 26.8 seconds Normal 24.2-38.5 CBC With Differential 09/20/[address] [address] [phone] White Blood Count 11.0 10 High 4.0-10.0 [...] 36.0-66.0 Lymph % 9.2 % Low 24.0-44.0 [place] % 9.7 % High 2.0-8.0 Eos % 0.8 % Normal 0.0-3.0 Baso % 0.3 % Normal 0.0-1.0 Immature Granulocyte % 0.8 % Normal 0-3.0 Nucleated Red Blood Cell % 0.0 % Normal 0-0 Neutrophils # 8.7 10 High 1.5-8.5 Lymph # 1.0 10 Low 1.5-5.0 [place] # 1.1 10 High 0.0-0.8 Eos # 0.1 10 Normal 0.0-0.5 Baso # 0.0 10 Normal 0.0-0.2 Influenza A/B RSV Covid Amp 09/08/2020 [facility] [address] [place] [address] [phone] Influenza A Amplification NEGATIVE Normal Negati ve 7 Influenza B Amplification NEGATIVE Normal Negative 8 RSV Amplification NEGATIVE Normal Negative 9 Sars Covid-19 Amplification NEGATIVE Normal Negative 10 Istat Chem8+ Panel 09/08/2020 [facility] nter [address] [place] [id number] [phone] iSTAT HCT 50.0 % Normal 38.0-51.0 iSTAT Glucose 115 mg/dL High 70-105 iSTAT Sodium 134 mEq/L Low 136-145 iSTAT Potassium 3.9 mEq/L Normal 3.5-5.1 iSTAT CA++ 4.7 mg/dL Normal 4.5-5.3 iSTAT Chloride 95 mEq/L Low 98-109 iSTAT Co2 24.0 MM/L Normal 23.0-27.0 iSTAT BUN 6 mg/dL Low 8-26 iSTAT Creatinine 0.8 mg/dL Normal 0.6-1.3 CBC With Differential 09/08/2020 [place] [address] [place] [address]774 [phone] White Blood Count 7.7 10 Normal 4.0-10.0 [...] 36.0-66.0 Lymph % 13.3 % Low 24.0-44.0 [place] % 11.1 % High 2.0-8.0 Eos % 1.6 % Normal 0.0-3.0 Baso % 0.1 % Normal 0.0-1.0 Immature Granulocyte % 0.7 % Normal 0-3.0 Nucleated Red Blood Cell % 0.0 % Normal 0-0 Neutrophils # 5.6 10 Normal 1.5-8.5 Lymph # 1.0 10 Low 1.5-5.0 [place] # 0.9 10 High 0.0-0.8 Eos # 0.1 10 Normal 0.0-0.5 Baso # 0.0 10 Normal 0.0-0.2 Liver Profile 09/08/2020 [facility] nter [address] [place] [address] [phone] Ast/Sgot 16 U/L Normal 7-37 Alt/SGPT 21 U/L Normal 12-78 Alkaline Phosphatase 117 U/L Normal 45-117 Bilirubin,Total 0.7 mg/dL Normal 0.2-1.0 Bilirubin,Direct 0.2 mg/dL Normal 0.0-0.2 Total Protein 6.7 GM/DL Normal 6.4-8.2 Albumin 3.5 GM/DL Normal 3.2-5.2 Albumin/Globulin Ratio 1.1 Normal Laboratory test finding 09/08/2020 [facility] [address] [place] [address] [phone] Lipase 78 U/L Normal 73-393 Lactic Acid Sepsis Protocol 1.2 mmol/L Normal 0.4-2.0 11 CBC With Auto Diff 08/13/2020 [facility] [address] [place] [address] [phone] WBC # Bld Auto 8.4 10*3/uL Normal 4.45-10.71 12 RBC # Bld Auto 5.36 10*6/uL Normal [...] diff Bld NO Laboratory test finding 08/13/[address] [id number] [phone] Esr Bld Qn Westrgrn 1 [facility] Normal 0-20 Comprehensive Metabolic Prof 08/13/[address] [address] [phone] BUN SerPl-mCnc 6 mg/dL Low 9-23 Sodium [...] g/dL Normal 5.7-8.2 Laboratory test finding 08/13/2020 [facility] [address] [place] [address] [phone] CRP SerPl-mCnc Less Than 2.9 Normal 0.0-5.0 VZV IgG Ser-aCnc 1888.00 [facility] 13 VZV IgM Ser-aCnc <=0.90 <=0.90 14 1 Units are mL/min/1.73 m2 Chronic Kidney Disease Staging per NKF: Stage I & II GFR >=60 Normal to Mildly Decreased Stage III GFR 30-59 Moderately Decreased Stage IV GFR 15-29 Severely Decreased Stage V GFR <15 Very Little GFR Left ESRD GFR <15 on PROCESS CONTROL ENGINEER 2 THE CEA ASSAY IS PERFORMED O N THE GenomindAUR BY CHEMILUMINESCENCE AND SHOULD NOT BE COMPARED [...] Little GFR Left ESRD GFR <15 on PROCESS CONTROL ENGINEER 4 THE CEA ASSAY IS PERFORMED O N THE GenomindAUR BY CHEMILUMINESCENCE AND SHOULD NOT BE COMPARED [...] Little GFR Left ESRD GFR <15 on PROCESS CONTROL ENGINEER 6 THERAPUTIC HUMAN INR VALUES INDICATIONS NORMAL RANGES PROPHYLAXIS/TREATMENT OF: VENOUS THROMBOSIS 2.0-3.0 PULMONARY EMBOLISM 2.0-3.0 PREVENTION OF SYSTEMIC EMBOLISM FROM: TISSUE HEART VALVES 2.0-3.0 ACUTE MYOCARDIAL INFARCTION 2.0-3.0 VALVULAR HEART DISEASE 2.0-3.0 ATRIAL FIBRILLATION 2.0-3.0 MECHANICAL VALVES(HIGH RISK) 2.5-3.5 RECURRENT MYOCARDIAL INFARCTION 2.5-3.5 7 Negative results do not prec lude influenza or RSV virus infection and should not be used as the sole basis for treatment or other patient management decisions. 8 Negative results do not prec lude influenza or RSV virus infection and should not be used as the sole basis for treatment or other patient management decisions. 9 Negative results do not prec lude influenza or RSV virus infection and should not be used as the sole basis for treatment or other patient management decisions. 10 A false negative result may occur if [...] pathogens. DISCLAIMER: Testing was performed using the [employer] SARS-CoV-2 test. This test was developed and its performance characteristics determined by [employer]. This test has not been FDA cleared [...] the authorization is terminated or revoked sooner. 11 Y/N query for Sepsis Lactate Rule: Y 12 HEAD AND FACIAL NUMBNESS 13 Index Interpre tation --------- <135.00 Negative - [...] Screen, ACIF. THIS TEST WAS PERFORMED AT: [facility] [address] ISABELLA BROWNE MD 14 < or = 0.90 Negative 0.91 - [...] more weeks. THIS TEST WAS PERFORMED AT: [facility]/[address] [address] SILVIA CORTEZ MD,PHD Procedures Date Code Description Status 10/21/2020 [id number] Diabetic Retinal Eye Exam [facility] 10/07/2020 [id number] Diabetic Retinal Eye Exam [facility] 10/05/2020 42461 Office/Outpatient Established Mo d MDM 30-39 Min Completed 10/03/2020 [id number] Diabetic Retinal Eye Exam [facility] 08/18/2020 36035 Office/Outpatient Established Lo w MDM 20-29 Min Completed 08/01/2020 [address]04[address] Office/Outpatient Established Lo w MDM 20-29 Min Completed 06/13/2020 37836 Office/Outpatient Established SF MDM 10-19 Min Completed Medical Devices Description No Information Available Encounters Type Date Location Provider Dx Diagnosis Office Visit 10/05/2020 9:40a [facility]CYany Morales MD 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, 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 * 12/06/2020 11:40 am - [facility] 10/05/2020 - Rashaun Morales MD* C15.9 [...] SIDE OF FACE Patient Notified 10/11/2020 [address] [place], [place] [address] [phone] Sudhakar Gonsalves MD EMELY CONSULT FOR SCREENING EGD DX: ALISA OGDEN GERD AND DYSPHAGIA Patient Notified 11/07/2020 [facility] [address] [place] [address] [phone] Girma Auguste MD CONSULT FOR SCREENING EGD Patient Notifi ed 09/15/2020 [address] [facility] [place] [id number] [phone]
--- OUTSIDE RECORDS SUMMARY | 2021-01-05 11:21 | CCD | Summary of Care ---
Author Author [facility] Organization [facility] Address Unknown Phone Unavailable Care Team Providers Care Emergency Crew Supervisor Name Role Phone Andrew Wade MD, Rashaun Ayala PCP [phone] Reason for Referral * Diagnostic Radiology (Routine) Referred By Contact Referred To Contact Status Reason Specialty Diagnoses / Procedures Ken Brooks MD [address] [place] [address] Email: [email or web address] Open Diagnoses Brain metastases P rocedures MR Brain with and without Contrast Electronically signed by Ken Brooks MD at Reason for Visit * Reason Comments Follow-up Encounter Details Care Team Description Date Type Department Ken Brooks MD [address] [place] [address] [id number] Brain metastases (Primary Dx) 11/09/2020 Telemedicine [facility] RADIATION ONCOLOGY [address] [place] [address] [address] [place] [address] Allergies No Known Active Allergiesdocumented as of this encounter (statuses as of 11/09/2020) Medications End Date Status Medication Sig Dispensed [...] onto the skin every 3 (three) days 11/20/2020 Active Erythromycin 5 MG/GM Place 0.5 3.5 g 6 10/21 Ophthalmic Ointment inches into 1 (ROMYCIN) the left eye Two Times Daily Status Hospital, Clinic, or Ordered Dose Route Frequency Start End Date Other Facility Date Administered Medication Active proparacaine (ALCAINE) 1 drop Both Eyes Once 10/15/19 0.5 % ophthalmic solution 21 1 1 drop documented as of this encounter (statuses as of 11/09/2020) Active Problems Problem Noted Date Malignant neoplasm [...] daughter Caroline Solares, , son Alex Mae [phone] MOLST on file: no Short Social History: He lives with his , they have 1 son who lives with them and 1 daughter who resides ne ar them. He has several siblings, has 1 surviving sibling, others d. 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 Brain metastases Dysphagia documented as of this encounter (statuses as of 11/09/2020) Immunizations Name Administration Dates Next Due [employer] SARS-CoV-2 06/14/2020, 05/24/2020 Vaccination documented as of [...] file Not on file Not on file Date Recorded COVID-19 Exposure Response 10/21/2020 2:19 PM EDT In the last month, have you been in contact with No / Unsure someone who was confirmed or suspected to have Coronavirus / COVID-19? documented as of this encounter Last Filed Vital Signs Reading Time Taken Comments Vital Sign - - Blood Pressure - - Pulse - - Temperature - - Respiratory Rate - - Oxygen Saturation - - Inhaled Oxygen Concentration 68.9 kg (152 lb) 11/09/2020 2:40 PM EDT Weight - - Height 23.11 09/21/2020 6:22 AM EDT Body Mass Index documented in this encounter Progress Notes * Ken Brooks MD - 11/09/2020 4:[address] Barreto - started after RT, week ago today Dr. Valladares - 15 fractions MRI in [place] in near future, telemed shortly after This is a telephonic visit which was [...] Palliative RT to esophagus (Dr. Valladares in [place]) Recently started chemotherapy with Dr. Barreto Performance status: (2) Ambulatory and capable of self care, unable to carry ou t work activity, up and about > 50% or waking hours HPI: Reba is a 65 y/o male s/p GK SRS as noted above for marv metastases from es ophageal cancer. He notes no acute s/e after gamma knife. No issues with pin s ites healing. Chemo has caused nausea, fatigue, occasional dizziness. Several d ays ago, he had temporary interruption of vision X 1 minute in lefft eye. Lost sight left eye, but is back now as result of corneal injury, still having facial numbness. Medications: Current Outpatient Medications Medication Sig Dispense Refill Atorvastatin Calcium 20 MG Oral Tablet (LIPITOR) Take 20 mg by mouth chucho y Biofreeze 4 % External Gel (Menthol (Topical Analgesic)) Apply topically as needed Erythromycin 5 MG/GM Ophthalmic Ointment (ROMYCIN) Place 0.5 inches into the left eye Two Times Daily 3.5 [address] 1 patch onto the skin every 3 (three) days Gabapentin 250 MG/5ML Oral Solution (NEURONTIN) Take by mouth Three times daily oxyCODONE HCl 5 MG/5ML Oral Solution (ROXICODONE) Take by mouth every 4 ( four) hours as needed for Pain Pantoprazole Sodium 40 MG Oral Tablet Delayed Release (PROTONIX) Take 1 t ablet by mouth Two Times Daily 60 tablet 11 Gabapentin 300 MG Oral Capsule (NEURONTIN) Take 300 mg by mouth Three felix es daily as needed (Patient not taking: Reported on 10/21/2020) Current Facility-Administered Medications Medication Dose Route Frequency Provider Last Rate Last Admin proparacaine (ALCAINE) 0.5 % ophthalmic solution 1 drop 1 drop Both Eyes Once Emeka Mejia MD Allergies: Patient has no known allergies. Patient's medications, allergies, past medical, surgical, social and family hist ories were reviewed and updated as appropriate. Objective: Vitals - 1 value per visit 10/14/2020 10/21/2020 11/09/2020 SYSTOLIC - - - DIASTOLIC - - - PULSE - - - TEMPERATURE - - - RESPIRATIONS - - - Weight (kg) - - 68.947 kg HEIGHT - - - SPO2 - - - BODY MASS INDEX - - 23.11 kg/m2 PAIN SCALE - SCORE 0 0 0 PAIN SCALE - LOCATION EYE EYE - Phone Exam - Limited No repiratory distress Speech fluent Psych: Mood, affect, train of thought unremarkable. Good insight. Assessment & Plan: Reba is s/p GK SRS for 4 brain metastases. At the time of GK, noted a lesion in the vicinity of left cavernous sinus. Revi ewed with neurorad at the time, and couldn't be sure it was a metastasis. Plan was for careful observation - and CT to eval for potential signs pointing to oth er etiology (meningioma, schwannoma, etc). He has continued to have symptoms, t hus metastasis to that region continues to be in the differential. Given his re cent visual symptoms - I will order an updated MRI to be done now (Dr. Ordaz had ordered an interval MRI but I will move up - so it can be palliated if it has pr ogressed and is more c/w metastasis) Patient in agreement with plan. Will see him for telemed visit again, after MRI has been done. The plan of care for pain includes the following intervention(s): the patient is not having any pain. I spent a total of 25 minutes today on the clinic visit, including preparation, patient evaluating/counseling, and documentation / coordination of care. Ken Brooks MD Fast Food Manager Radiation Oncology documented in this encounter Nursing Notes * Laura Nascimento RN - 11/09/2020 4:30 PM EDT Pt called for pre telemedicine appt. Denies any pain at this time. Pt states cate t his weight is down . Wearing Fentanyl patch but was unable to read the amount of mcg of the patches that this administers. States that he had an episode of dizziness in which he lost his vision for about 30 seconds and then it return ed. Was incontinent of stool at that time. documented in this encounter Plan of Treatment Care Team Description Date Type Specialty 01/20/2021 Office Visit Ophthalmology Order Schedule Name Type Priority Associated Diag noses Expected: 11/09/2020, Expires: 2 MR Brain with and without Imaging Routine Brai n metastases Contrast Health Maintenance Due Date Last Done Comments MMR Vaccines (1 of - 10/09/1956 Standard series) Varicella Vaccines (10/09/1956 2 - 2-dose childhood series) Pneumococcal Vaccine: [...] 05/24/2020 Hepatitis C Screening (B. Completed 09/08/2020, 2325-2781) 09/08/2020 HIB Vaccines Aged Out No longer [...] ot Implanted Type Area Manufactur er 05/18/2022 [id number] / / [id number] Gi- Saf-T-Pexy Fasteners - N/A: Stomach Posh EyesRD [id number] Implanted: Qty: 1 on 09/13/2020 by Lowell Landers MD at [facility] 07/15/2023 [id number] / / [id number] Gi- [employer]uit G-Tube 18fr- Sbrd-1 - N/A: Stomach [employer] [id number] Implanted: Qty: 1 on 09/13/2020 by Lowell Landers MD at [facility] [id number] / [id number] / Prokera Plus-10/03/2020 Implanted: Qty: 1 on 10/03/2020 by Cassie Weathers MD Explanted: 10/07/2020 (Quantity not on file) documented as of this encounter Results Not on filedocumented in this encounter Visit Diagnoses Diagnosis Brain metastases - Primary 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
--- OUTSIDE RECORDS SUMMARY | 2021-01-05 11:21 | CCD | Continuity of Care Document ---
Author Organization Unknown Address Unknown Phone Unavailable Care Team Providers Care Engineering Analyst Name Role Phone Rashaun Morales JR, MD [...] every 4 hours as needed for pain [id number] 120tabs Rashaun Morales MD 09/19/2020 - 10/05/2020 Nystatin [id number] Suspension 5cc swish and swallow five times a day x 10 days 473ml CELESTINE Naranjo JR 08/23/2020 - 10/05/2020 Gabapentin 300mg Capsules 1 by mouth tid prn 90capCELESTINE Esipnoza JR 021 - 10/05/2020 Omeprazole 20mg Capsules [...] Result H/L Range Note CBC With Differential 11/10/[address] [address] [phone] White Blood Count 3.6 10 Low 4.0-10.0 [...] 36.0-66.0 Lymph % 4.7 % Low 24.0-44.0 Frontier % 16.1 % High 2.0-8.0 Eos % 2.8 % Normal 0.0-3.0 Baso % 0.6 % Normal 0.0-1.0 Immature Granulocyte % 0.8 % Normal 0-3.0 Nucleated Red Blood Cell % 0.0 % Normal 0-0 Neutrophils # 2.7 10 Normal 1.5-8.5 Lymph # 0.2 10 Low 1.5-5.0 Frontier # 0.6 10 Normal 0.0-0.8 Eos # 0.1 10 Normal 0.0-0.5 Baso # 0.0 10 Normal 0.0-0.2 Laboratory test finding 11/10/[address] [address] [phone] Immature Platelet Fraction 3.8 % Normal 0.0-1 0.91 Comprehensive Metabolic Profil 11/10/2020 [address] [address] [place], [place] [id number] [phone] Glucose, Fasting 107 mg/dL High 70-100 Blood [...] Albumin/Globulin Ratio 0.9 Normal CBC With Differential 10/31/[address] [id number] [phone] White Blood Count 6.3 10 Normal 4.0-10.0 [...] 36.0-66.0 Lymph % 2.7 % Low 24.0-44.0 Frontier % 11.9 % High 2.0-8.0 Eos % 2.7 % Normal 0.0-3.0 Baso % 0.3 % Normal 0.0-1.0 Immature Granulocyte % 1.4 % Normal 0-3.0 Nucleated Red Blood Cell % 0.0 % Normal 0-0 Neutrophils # 5.1 10 Normal 1.5-8.5 Lymph # 0.2 10 Low 1.5-5.0 Frontier # 0.8 10 Normal 0.0-0.8 Eos # 0.2 10 Normal 0.0-0.5 Baso # 0.0 10 Normal 0.0-0.2 Comprehensive Metabolic Profil 10/31/2020 [facility] [address] [place] [address] [phone] Glucose, Fasting 101 mg/dL High 70-100 Blood Urea Nitrogen 8 mg/dL Normal 7-18 Creatinine For GFR 0.48 mg/dL Low 0.70-1.30 Glomerular Filtration Rate > 60.0 Normal >49 2 Sodium Level 131 mEq/L Low 136-145 Potassium [...] Ratio 0.9 Normal Laboratory test finding 10/31/2020 [facility] [address] [place] [address] [phone] Carcinoembryonic Antigen 30.5 NG/ML High <2.5 3 FT4&TSH Panel 10/31/2020 [facility] nter [address] [place] [address] [phone] Thyroid Stimulating Hormone 0.394 uIU/ML Normal 0. 358-3.740 Free T4 1.31 ng/dL Normal 0.76-1.46 CBC With Differential 10/14/2020 [facility] [address] [place] [address] [phone] White Blood Count 9.4 10 Normal 4.0-10.0 [...] 36.0-66.0 Lymph % 5.2 % Low 24.0-44.0 Frontier % 6.9 % Normal 2.0-8.0 Eos % 2.5 % Normal 0.0-3.0 Baso % 0.2 % Normal 0.0-1.0 Immature Granulocyte % 1.0 % Normal 0-3.0 Nucleated Red Blood Cell % 0.0 % Normal 0-0 Neutrophils # 8.0 10 Normal 1.5-8.5 Lymph # 0.5 10 Low 1.5-5.0 Frontier # 0.7 10 Normal 0.0-0.8 Eos # 0.2 10 Normal 0.0-0.5 Baso # 0.0 10 Normal 0.0-0.2 Basic Metabolic Profile 10/14/[address] [address] [phone] Glucose, Fasting 107 mg/dL High 70-100 Blood Urea Nitrogen 8 mg/dL Normal 7-18 Creatinine For GFR 0.46 mg/dL Low 0.70-1.30 Glomerular Filtration Rate > 60.0 Normal >49 4 Sodium Level 130 mEq/L Low 136-145 Potassium Serum 4.2 mEq/L Normal 3.5-5.1 Chloride Level 96 mEq/L Low 98-107 Carbon Dioxide Level 24 mEq/L Normal 21-32 Anion Gap 10 mEq/L Normal 8-16 Calcium Level 8.9 mg/dL Normal 8.8-10.2 Comprehensive Metabolic Profil 09/20/[address] [id number] [phone] Glucose, Fasting 110 mg/dL High 70-100 Blood [...] Ratio 1.1 Normal Laboratory test finding 09/20/[address] [address] [phone] Carcinoembryonic Antigen 8.2 NG/ML High <2.5 6 PT & Aptt 09/20/2020 [facility] nter [address] [place] [address] [phone] Prothrombin Time 12.2 seconds Normal 12.5-14.3 Inr 0.89 Normal 7 Partial Thromboplastin Time 26.8 seconds Normal 24.2-38.5 CBC With Differential 09/20/[address] [address] [phone] White Blood Count 11.0 10 High 4.0-10.0 [...] 36.0-66.0 Lymph % 9.2 % Low 24.0-44.0 Frontier % 9.7 % High 2.0-8.0 Eos % 0.8 % Normal 0.0-3.0 Baso % 0.3 % Normal 0.0-1.0 Immature Granulocyte % 0.8 % Normal 0-3.0 Nucleated Red Blood Cell % 0.0 % Normal 0-0 Neutrophils # 8.7 10 High 1.5-8.5 Lymph # 1.0 10 Low 1.5-5.0 Frontier # 1.1 10 High 0.0-0.8 Eos # 0.1 10 Normal 0.0-0.5 Baso # 0.0 10 Normal 0.0-0.2 Influenza A/B RSV Covid Amp 09/08/2020 [facility] [address] [place] [address] [phone] Influenza A Amplification NEGATIVE Normal Negati ve 8 Influenza B Amplification NEGATIVE Normal Negative 9 RSV Amplification NEGATIVE Normal Negative 10 Sars Covid-19 Amplification NEGATIVE Normal Negative 11 Istat Chem8+ Panel 09/08/2020 [facility] nter [address] [place] [address] [phone] iSTAT HCT 50.0 % Normal 38.0-51.0 iSTAT Glucose 115 mg/dL High 70-105 iSTAT Sodium 134 mEq/L Low 136-145 iSTAT Potassium 3.9 mEq/L Normal 3.5-5.1 iSTAT CA++ 4.7 mg/dL Normal 4.5-5.3 iSTAT Chloride 95 mEq/L Low 98-109 iSTAT Co2 24.0 MM/L Normal 23.0-27.0 iSTAT BUN 6 mg/dL Low 8-26 iSTAT Creatinine 0.8 mg/dL Normal 0.6-1.3 CBC With Differential 09/08/2020 [facility] [address] [place] [address] [phone] White Blood Count 7.7 10 Normal 4.0-10.0 [...] 36.0-66.0 Lymph % 13.3 % Low 24.0-44.0 Frontier % 11.1 % High 2.0-8.0 Eos % 1.6 % Normal 0.0-3.0 Baso % 0.1 % Normal 0.0-1.0 Immature Granulocyte % 0.7 % Normal 0-3.0 Nucleated Red Blood Cell % 0.0 % Normal 0-0 Neutrophils # 5.6 10 Normal 1.5-8.5 Lymph # 1.0 10 Low 1.5-5.0 Frontier # 0.9 10 High 0.0-0.8 Eos # 0.1 10 Normal 0.0-0.5 Baso # 0.0 10 Normal 0.0-0.2 Liver Profile 09/08/2020 [facility] nter [address] [place] [address] [phone] Ast/Sgot 16 U/L Normal 7-37 Alt/SGPT 21 U/L Normal 12-78 Alkaline Phosphatase 117 U/L Normal 45-117 Bilirubin,Total 0.7 mg/dL Normal 0.2-1.0 Bilirubin,Direct 0.2 mg/dL Normal 0.0-0.2 Total Protein 6.7 GM/DL Normal 6.4-8.2 Albumin 3.5 GM/DL Normal 3.2-5.2 Albumin/Globulin Ratio 1.1 Normal Laboratory test finding 09/08/2020 [facility] [address] [place] [address] [phone] Lipase 78 U/L Normal 73-393 Lactic Acid Sepsis Protocol 1.2 mmol/L Normal 0.4-2.0 12 CBC With Auto Diff 08/13/2020 [facility] [address] [place] [address] [phone] WBC # Bld Auto 8.4 10*3/uL Normal 4.45-10.71 13 RBC # Bld Auto 5.36 10*6/uL Normal [...] Bld NO Laboratory test finding 08/13/[address] [address] [phone] Esr Bld Qn Westrgrn 1 [facility] Normal 0-20 Comprehensive Metabolic Prof 08/13/[address] [address] [phone] BUN SerPl-mCnc 6 mg/dL Low 9-23 Sodium [...] g/dL Normal 5.7-8.2 Laboratory test finding 08/13/2020 [facility] [address] [place] [id number] [phone] CRP SerPl-mCnc Less Than 2.9 Normal 0.0-5.0 VZV IgG Ser-aCnc 1888.00 [facility] 14 VZV IgM Ser-aCnc <=0.90 <=0.90 15 1 Units are mL/min/1.73 m2 Chronic Kidney Disease Staging per NKF: Stage I & II GFR >=60 Normal to Mildly Decreased Stage III GFR 30-59 Moderately Decreased Stage IV GFR 15-29 Severely Decreased Stage V GFR <15 Very Little GFR Left ESRD GFR <15 on TWITCHELL OPERATOR 2 Units are mL/min/1.73 m2 Chronic Kidney Disease Staging per NKF: Stage I & II GFR >=60 Normal to Mildly Decreased Stage III GFR 30-59 Moderately Decreased Stage IV GFR 15-29 Severely Decreased Stage V GFR <15 Very Little GFR Left ESRD GFR <15 on TWITCHELL OPERATOR 3 THE CEA ASSAY IS PERFORMED O N THE [employer] BY CHEMILUMINESCENCE AND SHOULD NOT BE COMPARED INTERCHANGEABLY WITH OTHER METHODS. IT SHOULD NOT BE USED ALONE A SCREENING TEST OR DIAGNOSIS FOR THE PRESENCE OR ABSENCE OF MALIGNANT DISEASE. PREDICTIONS OF DISEASE RECURRENCE SHOULD NOT BE BASED SOLELY ON VALUES OBTAINED FROM SERIAL PATIENT SERUM VALUES. 4 Units are mL/min/1.73 m2 Chronic Kidney Disease Staging per NKF: Stage I & II GFR >=60 Normal to Mildly Decreased Stage III GFR 30-59 Moderately Decreased Stage IV GFR 15-29 Severely Decreased Stage V GFR <15 Very Little GFR Left ESRD GFR <15 on TWITCHELL OPERATOR 5 Units are mL/min/1.73 m2 Chronic Kidney Disease Staging per NKF: Stage I & II GFR >=60 Normal to Mildly Decreased Stage III GFR 30-59 Moderately Decreased Stage IV GFR 15-29 Severely Decreased Stage V GFR <15 Very Little GFR Left ESRD GFR <15 on TWITCHELL OPERATOR 6 THE CEA ASSAY IS PERFORMED O N THE [employer] BY CHEMILUMINESCENCE AND SHOULD NOT BE COMPARED INTERCHANGEABLY WITH OTHER METHODS. IT SHOULD NOT BE USED ALONE A SCREENING TEST OR DIAGNOSIS FOR THE PRESENCE OR ABSENCE OF MALIGNANT DISEASE. PREDICTIONS OF DISEASE RECURRENCE SHOULD NOT BE BASED SOLELY ON VALUES OBTAINED FROM SERIAL PATIENT SERUM VALUES. 7 THERAPUTIC HUMAN INR VALUES INDICATIONS NORMAL RANGES PROPHYLAXIS/TREATMENT OF: VENOUS THROMBOSIS 2.0-3.0 PULMONARY EMBOLISM 2.0-3.0 PREVENTION OF SYSTEMIC EMBOLISM FROM: TISSUE HEART VALVES 2.0-3.0 ACUTE MYOCARDIAL INFARCTION 2.0-3.0 VALVULAR HEART DISEASE 2.0-3.0 ATRIAL FIBRILLATION 2.0-3.0 MECHANICAL VALVES(HIGH RISK) 2.5-3.5 RECURRENT MYOCARDIAL INFARCTION 2.5-3.5 8 Negative results do not prec lude [...] treatment or other patient management decisions. 11 A false negative result may occur if [...] pathogens. DISCLAIMER: Testing was performed using the [employer] [facility] SARS-CoV-2 test. This test was developed and its performance characteristics determined by [facility]). This test has not been FDA cleared [...] the authorization is terminated or revoked sooner. 12 Y/N query for Sepsis Lactate Rule: Y 13 HEAD AND FACIAL NUMBNESS 14 Index Interpre tation --------- <135.00 Negative - [...] Screen, ACIF. THIS TEST WAS PERFORMED AT: [facility] [facility] [facility] [address] ISABELLA BROWNE MD 15 < or = 0.90 Negative 0.91 - [...] more weeks. THIS TEST WAS PERFORMED AT: [facility] [facility] [facility]/[address] [address] SILVIA CORTEZ MD,PHD Procedures Date Code Description Status 10/21/2020 [id number] Diabetic Retinal Eye Exam Comple jennifer 10/07/2020 [id number] Diabetic Retinal Eye Exam Comple jennifer 10/05/2020 58106 Office/Outpatient Established Mo d MDM 30-39 Min Completed 10/03/2020 [id number] Diabetic Retinal Eye Exam Comple jennifer 08/18/2020 40536 Office/Outpatient Established Lo w MDM 20-29 Min Completed 08/01/2020 01376 Office/Outpatient Established Lo w MDM 20-29 Min Completed 06/13/2020 01391 Office/Outpatient Established SF MDM 10-19 Min Completed Medical Devices Description No Information Available Encounters Type Date Location Provider Dx Diagnosis Office Visit 10/05/2020 9:40a [facility] Morales MD 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, 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 R13.10 Dysphagia, unspecified Z71.6 Tobacco abuse counseling F17.210 Nicotine dependence, cigaret marcelo, uncomplicated Office Visit 08/18/2020 8:20a [facility] PCELESTINE Lal JR B02.8 Zoster with other complicati ons Office Visit 08/01/2020 [facility] R13.10 Dysphagia, unspecified K21.9 Gastro-esophageal reflux dis ease without esophagitis Office Visit 06/13/2020 3:20p [facility] PCELESTINE Lal JR K21.9 Gastro-esophageal reflux [...] MD 08/18/2020 B02.8 Zoster with other complications ECLESTINE Nassar JR 08/01/2020 R13.10 Dysphagia, unspecified CELESTINE Nassar JR 08/01/2020 K21.9 Gastro-esophageal reflux disease without esophagitis CELESTINE Nassar JR 06/13/2020 K21.9 Gastro-esophageal reflux disease without esophagitis CELESTINE Nassar JR Plan of Treatment Future Appointment(s):* 12/02/2020 8:50 am - Lab Schedule at [facility] * 12/06/2020 11:40 am - Rashaun Morales MD at [facility] 10/05/2020 - Rashaun Moraels MD* 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, unspecified [...] SIDE OF FACE Patient Notified 10/11/2020 [address] [place] [address] [phone] Sudhakar Gonsalves MD EMELY CONSULT FOR SCREENING EGD DX: ALISA OGDEN GERD AND DYSPHAGIA Patient Notified 11/07/2020 [facility] [address] [facility], [place] [address] [phone] Girma Auguste MD CONSULT FOR SCREENING EGD Patient Notifi ed 09/15/2020 [address] [facility] [address] [phone]
--- OUTSIDE RECORDS SUMMARY | 2021-01-05 11:21 | CCD | Continuity of Care Document ---
Author Author Lab Kavon, Reba Organization Unknown Address [address] [place] [phone] Phone Unavailable Care Team Providers Care Rapid Extractor Operator Name Role Phone Rashaun Morales JR, MD [...] every 4 hours as needed for pain [id number] 120tabs Rashaun Morales MD 09/19/2020 - 10/05/2020 Nystatin [id number]/ML Suspension 5cc swish and swallow five times a day x 10 days 473ml [place] CELESTINE Kilpatrick JR 08/23/2020 - 10/05/2020 Gabapentin 300mg Capsules 1 by mouth tid prn 90caps CELESTINE Nassar JR - 10/05/[address] 1 by mouth every day 90caps CELESTINE Nassar JR 021 - 10/05/2020 Immunizations Description No [...] H/L Range Note Comprehensive Metabolic Profil 10/31/[address] [address] [phone] Glucose, Fasting 101 mg/dL High 70-100 Blood [...] Ratio 0.9 Normal Laboratory test finding 10/31/2020 [facility] [address] [place] [address] [phone] Carcinoembryonic Antigen 30.5 NG/ML High <2.5 2 FT4&TSH Panel 10/31/2020 [facility] nter [address] [place] [address] [phone] Thyroid Stimulating Hormone 0.394 uIU/ML Normal 0. 358-3.740 Free T4 1.31 ng/dL Normal 0.76-1.46 CBC With Differential 10/31/[address] 8573066 [phone] White Blood Count 6.3 10 Normal 4.0-10.0 [...] 36.0-66.0 Lymph % 2.7 % Low 24.0-44.0 Clayton % 11.9 % High 2.0-8.0 Eos % 2.7 % Normal 0.0-3.0 Baso % 0.3 % Normal 0.0-1.0 Immature Granulocyte % 1.4 % Normal 0-3.0 Nucleated Red Blood Cell % 0.0 % Normal 0-0 Neutrophils # 5.1 10 Normal 1.5-8.5 Lymph # 0.2 10 Low 1.5-5.0 Clayton # 0.8 10 Normal 0.0-0.8 Eos # 0.2 10 Normal 0.0-0.5 Baso # 0.0 10 Normal 0.0-0.2 CBC With Differential 10/14/[address] 6[address]7225 [phone] White Blood Count 9.4 10 Normal 4.0-10.0 [...] 36.0-66.0 Lymph % 5.2 % Low 24.0-44.0 Clayton % 6.9 % Normal 2.0-8.0 Eos % 2.5 % Normal 0.0-3.0 Baso % 0.2 % Normal 0.0-1.0 Immature Granulocyte % 1.0 % Normal 0-3.0 Nucleated Red Blood Cell % 0.0 % Normal 0-0 Neutrophils # 8.0 10 Normal 1.5-8.5 Lymph # 0.5 10 Low 1.5-5.0 Clayton # 0.7 10 Normal 0.0-0.8 Eos # 0.2 10 Normal 0.0-0.5 Baso # 0.0 10 Normal 0.0-0.2 Basic Metabolic Profile 10/14/[address] [address] [phone] Glucose, Fasting 107 mg/dL High 70-100 Blood [...] mg/dL Normal 8.8-10.2 Laboratory test finding 09/20/[address] [address] [phone] Carcinoembryonic Antigen 8.2 NG/ML High <2.5 4 Comprehensive Metabolic Profil 09/20/[address] [address] [phone] Glucose, Fasting 110 mg/dL High 70-100 Blood [...] Ratio 1.1 Normal PT & Aptt 09/20/2020 [facility] nter [address] [place] [address] [phone] Prothrombin Time 12.2 seconds Normal 12.5-14.3 Inr 0.89 Normal 6 Partial Thromboplastin Time 26.8 seconds Normal 24.2-38.5 CBC With Differential 09/20/[address] [address] [phone] White Blood Count 11.0 10 High 4.0-10.0 [...] 36.0-66.0 Lymph % 9.2 % Low 24.0-44.0 Clayton % 9.7 % High 2.0-8.0 Eos % 0.8 % Normal 0.0-3.0 Baso % 0.3 % Normal 0.0-1.0 Immature Granulocyte % 0.8 % Normal 0-3.0 Nucleated Red Blood Cell % 0.0 % Normal 0-0 Neutrophils # 8.7 10 High 1.5-8.5 Lymph # 1.0 10 Low 1.5-5.0 Clayton # 1.1 10 High 0.0-0.8 Eos # 0.1 10 Normal 0.0-0.5 Baso # 0.0 10 Normal 0.0-0.2 Influenza A/B RSV Covid Amp 09/08/2020 [facility] [address] [place] [address] [phone] Influenza A Amplification NEGATIVE Normal Negati ve 7 Influenza B Amplification NEGATIVE Normal Negative 8 RSV Amplification NEGATIVE Normal Negative 9 Sars Covid-19 Amplification NEGATIVE Normal Negative 10 Istat Chem8+ Panel 09/08/2020 [facility] nter [address] [place] [address] [phone] iSTAT HCT 50.0 % Normal 38.0-51.0 iSTAT Glucose 115 mg/dL High 70-105 iSTAT Sodium 134 mEq/L Low 136-145 iSTAT Potassium 3.9 mEq/L Normal 3.5-5.1 iSTAT CA++ 4.7 mg/dL Normal 4.5-5.3 iSTAT Chloride 95 mEq/L Low 98-109 iSTAT Co2 24.0 MM/L Normal 23.0-27.0 iSTAT BUN 6 mg/dL Low 8-26 iSTAT Creatinine 0.8 mg/dL Normal 0.6-1.3 CBC With Differential 09/08/2020 [facility] [address] [place] [address] [phone] White Blood Count 7.7 10 Normal 4.0-10.0 [...] 36.0-66.0 Lymph % 13.3 % Low 24.0-44.0 Clayton % 11.1 % High 2.0-8.0 Eos % 1.6 % Normal 0.0-3.0 Baso % 0.1 % Normal 0.0-1.0 Immature Granulocyte % 0.7 % Normal 0-3.0 Nucleated Red Blood Cell % 0.0 % Normal 0-0 Neutrophils # 5.6 10 Normal 1.5-8.5 Lymph # 1.0 10 Low 1.5-5.0 Clayton # 0.9 10 High 0.0-0.8 Eos # 0.1 10 Normal 0.0-0.5 Baso # 0.0 10 Normal 0.0-0.2 Liver Profile 09/08/2020 [facility] nter [address] [place], [place] [address] [phone] Ast/Sgot 16 U/L Normal 7-37 Alt/SGPT 21 U/L Normal 12-78 Alkaline Phosphatase 117 U/L Normal 45-117 Bilirubin,Total 0.7 mg/dL Normal 0.2-1.0 Bilirubin,Direct 0.2 mg/dL Normal 0.0-0.2 Total Protein 6.7 GM/DL Normal 6.4-8.2 Albumin 3.5 GM/DL Normal 3.2-5.2 Albumin/Globulin Ratio 1.1 Normal Laboratory test finding 09/08/2020 [facility] [address] [place] [address] [phone] Lipase 78 U/L Normal 73-393 Lactic Acid Sepsis Protocol 1.2 mmol/L Normal 0.4-2.0 11 CBC With Auto Diff 08/13/2020 [facility] [address] [place] [address] [phone] WBC # Bld Auto 8.4 10*3/uL Normal [...] diff Bld NO Laboratory test finding 08/13/[address] [address] [phone] Esr Bld Qn Westrgrn 1 [facility] Normal 0-20 Comprehensive Metabolic Prof 08/13/[address] [address] [phone] BUN SerPl-mCnc 6 mg/dL Low 9-23 Sodium [...] g/dL Normal 5.7-8.2 Laboratory test finding 08/13/2020 [facility] [address] [place], [place] [address] [phone] CRP SerPl-mCnc Less Than 2.9 Normal 0.0-5.0 [...] Little GFR Left ESRD GFR <15 on AUTO AIR CONDITIONING MECHANIC 2 THE CEA ASSAY IS PERFORMED O N THE [employer] BY CHEMILUMINESCENCE AND SHOULD NOT BE COMPARED [...] Little GFR Left ESRD GFR <15 on AUTO AIR CONDITIONING MECHANIC 4 THE CEA ASSAY IS PERFORMED O N THE [employer] BY CHEMILUMINESCENCE AND SHOULD NOT BE COMPARED [...] Little GFR Left ESRD GFR <15 on AUTO AIR CONDITIONING MECHANIC 6 THERAPUTIC HUMAN INR VALUES INDICATIONS NORMAL [...] pathogens. DISCLAIMER: Testing was performed using the [employer] SARS-CoV-2 test. This test was developed and its performance characteristics determined by [employer]. This test has not been FDA cleared [...] Screen, ACIF. THIS TEST WAS PERFORMED AT: [email or web address] [address] ISABELLA BROWNE MD 14 < or = [...] more weeks. THIS TEST WAS PERFORMED AT: [email or web address] [address] SILVIA CORTEZ MD,PHD Procedures Date Code Description Status 10/21/2020 [id number] Diabetic Retinal Eye Exam [facility] 10/07/2020 [id number] Diabetic Retinal Eye Exam [facility] 10/05/2020 [address]6920 Office/Outpatient Established Mo d MDM 30-39 Min Completed 10/03/2020 [id number] Diabetic Retinal Eye Exam Comple jennifer 08/18/2020 55043 Office/Outpatient Established Lo w MDM 20-29 Min Completed 08/01/2020 607[address] Office/Outpatient Established Lo w MDM 20-29 Min Completed 06/13/2020 10780 Office/Outpatient Established SF MDM 10-19 Min Completed Medical Devices Description No Information Available Encounters Type Date Location Provider Dx Diagnosis Office Visit 10/05/2020 9:40a [facility]any Morales MD 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, 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 * 12/06/2020 11:40 am - [facility] 10/05/2020 - Rashaun Morales MD* [...] SIDE OF FACE Patient Notified 10/11/2020 [address] [place] [address] [phone] Sudhakar Gonsalves MD EMELY CONSULT FOR SCREENING EGD DX: ALISA OGDEN GERD AND DYSPHAGIA Patient Notified 11/07/2020 [facility] [address] [facility], [place] [address] [phone] Girma Auguste MD CONSULT FOR SCREENING EGD Patient Notifi ed 09/15/2020 [address] [facility] [address] [phone]
--- OUTSIDE RECORDS SUMMARY | 2021-01-05 11:21 | CCD | Summary of Care ---
Author Author [facility] Organization [facility] Address Unknown Phone Unavailable Care Team Providers Care Plastic Molder Name Role Phone Andrew Wade MD, Rashaun Ayala PCP [phone] Reason for Referral * Diagnostic Radiology (Routine) Referred By Contact Referred To Contact Status Reason Specialty Diagnoses / Procedures Jonas Ordaz MD [address] [place] [phone] Email: [email or web address] Open Diagnoses Brain metastases P rocedures MR Brain with and without Contrast Electronically signed by Jonas Ordaz MD at Reason for Visit * Reason Comments Brain Tumor Encounter Details Care Team Description Date Type Department Jonas Ordaz MD [address] [place] [phone] Brain metastases (Primary Dx) 10/25/2020 Office Visit [facility] [address] [facility] 1st Floor [address] [place] [phone] Allergies No Known Active Allergiesdocumented as of this encounter (statuses as of 10/25/2020) Medications End Date Status Medication Sig Dispensed [...] Date Other Facility Date Administered Medication Active lidocaine-EPINEPHrine 1 1 mL INFILTRATION Once 0 %-1:953436 injection 1 mL 21 1 Active proparacaine (ALCAINE) 1 drop Both Eyes Once 10/15/19 0.5 % ophthalmic solution 21 1 1 drop documented as of this encounter (statuses as of 10/25/2020) Active Problems Problem Noted Date Malignant neoplasm of lower third of esophagus 09/28 Cancer Staging: Clinical: Stage IVB (cT 3, cN3, cM1) - Unsigned Numbness and tingling of left side of face 1 Esophageal mass 09/13/2020 Gastric mass 09/08/2020 Liver [...] daughter Caroline Solares, , son Alex Mae [phone] MOLST on file: no Short Social History: He lives with his , they have 1 son who lives with them and 1 daughter who resides ne ar them. He has several siblings, has 1 surviving sibling, others d. 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 Brain metastases Dysphagia documented as of this encounter (statuses as of 10/25/2020) Immunizations Name Administration Dates Next Due Pfizer [...] of this encounter Last Filed Vital Signs Not on filedocumented in this encounter Progress Notes * Jonas Ordaz MD - 10/25/2020 9:30 AM EDT The telephone service was performed during the state of emergency during the COV ID-19 outbreak. I have discussed this request and the patient has given their verbal consent to use Telecommunications in lieu of a [id number] visit in the office. I have spent 19 minutes reviewing imaging and discussing current symptoms, findi ngs and recommendations. Patient with esophageal cancer brain metastases treated with the gamma knife on 09/21/2020. He was noted to have an abnormality in the left cavernous sinus causing left fac ial numbness. 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 Today, he still has left face numbness in all 3 divisions. Will repeat a brain MRI scan in 3 months. RTC in 3 months. documented in this encounter Plan of Treatment Care Team Description Date Type Specialty Mix, Ken Tolentino MD [address] [place] [id number] [phone] 11/04/2020 Office Visit Radiation Oncology 01/20/2021 Office Visit Ophthalmology Order Schedule Name Type Priority Associated Diag noses Expected: 10/25/2020, Expires: 2 MR Brain with and without Imaging Routine Brai n metastases Contrast 1 Occurrences starting 10/25/2020 until 04/27/2021 Creatinine with GFR Lab Routine Brain meta stases Ordered: 10/25/2020 POCT i-STAT Creatinine Point of Care Routine Brain m etastases Testing-Docked Device Health Maintenance Due Date Last Done Comments [...] 05/24/2020 Hepatitis C Screening (B. Completed 09/08/2020, [id number]) 09/08/2020 HIB Vaccines Aged Out No longer [...] ot Implanted Type Area Manufactur er 05/18/2022 [id number] / / [id number] Gi- Saf-T-Pexy Fasteners - N/A: Stomach HALYARD [id number] Implanted: Qty: 1 on 09/13/2020 by Lowell Landers MD at [facility] 07/15/2023 [id number] / / [id number] Gi- Entuit G-Tube 18fr- Sbrd-1 - N/A: Stomach [employer] [id number] Implanted: Qty: 1 on 09/13/2020 by Lowell Landers MD at [facility] [id number] / [id number] / Prokera Plus-10/03/2020 Implanted: Qty: 1 on 10/03/2020 by Cassie Weathers MD Explanted: 10/07/2020 (Quantity not on file) documented as of this encounter Results Not on filedocumented in this encounter Visit Diagnoses Diagnosis Brain metastases - Primary 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
--- OUTSIDE RECORDS SUMMARY | 2021-01-05 11:21 | CCD | Summary of Care ---
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 [place] [address] [place] [address] Allergies No Known Active Allergiesdocumented as of this encounter (statuses as of 10/21/2020) Medications End Date Status Medication Sig Dispensed [...] lidocaine-EPINEPHrine 1 1 mL INFILTRATION Once 0 %-1:652064 injection 1 mL 21 1 Active proparacaine (ALCAINE) 1 drop Both Eyes Once 10/15/19 0.5 % ophthalmic solution 21 1 1 drop documented as of this encounter (statuses as of 10/21/2020) Active Problems Problem Noted Date Malignant neoplasm [...] daughter Caroline Solares, , son Alex Mae [phone] MOLST on file: no Short Social History: He lives with his , they have 1 son who lives with them and 1 daughter who resides ne ar them. He has several siblings, has 1 surviving sibling, others d. 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 Brain metastases Dysphagia documented as of this encounter (statuses as of 10/21/2020) Immunizations Name Administration Dates Next Due Pfizer [...] Signs Not on filedocumented in this encounter Patient Instructions * Patient Instructions* Shaheen Somers MD - 10/21/2020 3:00 PM EDT Please follow the physician's instructions as communicated during the office vis it. Medications should be taken/given as prescribed or recommended by the physic sina. Please keep the follow-up appointment as recommended by the physician and r eturn sooner if any changes, questions, or concerns arise. documented in this encounter Progress Notes * Shaheen Somers MD - 10/21/2020 3:00 PM EDT Chief Complaint Patient presents with Corneal Abrasion HPI Corneal Abrasion In left eye. 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 Patient states VA stable and denies eye pain in office today. Last edited by Zoe Orozco on 10/21/2020 2:31 PM. (History) History: Patient's medications, allergies, past medical, surgical, social, and f amily histories were reviewed and updated as appropriate. OPHTH Exam: Base Eye Exam Visual Acuity (Snellen - Linear) Right Left Dist sc 20/20 20/50 +2 Dist ph sc 20/30 Tonometry (Applanation, 2:45 PM) Right Left Pressure 22 15 Pupils Dark APD Right 2 None Left 2 None Visual Avalos Left Right Full Full Extraocular Movement Right Left Full Full Neuro/Psych Oriented x3: Yes Mood/Affect: Normal Dilation Both eyes: No Dilation @ 2:39 PM Slit Lamp and Fundus Exam External Exam Right Left External Normal Normal Slit Lamp Exam Right Left Lids/Lashes Normal Lateral tarsorrhaphy with bolsters Conjunctiva/Sclera White and Quiet White and Quiet Cornea Clear No epi defect, no infiltrate Anterior Chamber Deep and Quiet Deep and Quiet Iris Flat, Round Flat, Round, no TID Lens 1+ NS 1+ NS Vitreous Clear Clear Reba Mae had no medications administered during this visit. The following tests were performed today and reviewed with the patient (for the professional interpretation refer to the Oph Proc tab in chart review): DX/Plan: Reba Mae is a 65 y.o. 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 F/U: Return in about 3 months (around 01/21/2021) for General. Dilate no Shaheen Somers M.D. Resident's history reviewed, patient interviewed and examined. I agree. On exam I find: no abrasion; bolster and sutures gone Assessment and plan reviewed with resident. I, Brittany Mejia MD, agree with the diagnosis and treatment plan as documented by the resident. Brittany Mejia M.D. Ophthalmology Attending documented in this encounter Nursing Notes * Zoe Orozco - 10/21/2020 3:00 PM EDT IErnesto Mary Beth, worked up this patient. Zoe Orozco documented in this encounter Plan of Treatment Care Team Description Date Type Specialty Jonas Ordaz MD [address] [place] [address] 10/25/2020 Office Visit Neurosurgery Ken Brooks MD [address] [place] [address] 10/26/2020 Office Visit Radiation Oncology 01/20/2021 Office Visit Ophthalmology Health Maintenance Due [...] 05/24/2020 Hepatitis C Screening (B. Completed 09/08/2020, [id number]) 09/08/2020 HIB Vaccines Aged Out No longer [...] ot Implanted Type Area Manufactur er 05/18/2022 [id number] / / [id number] Gi- Saf-T-Pexy Fasteners - N/A: Stomach HALYARD [id number] Implanted: Qty: 1 on 09/13/2020 by Lowell Landers MD at [facility] 07/15/2023 [id number] / / [id number] Gi- Entuit G-Tube 18fr- Sbrd-1 - N/A: Stomach [employer] [id number] Implanted: Qty: 1 on 09/13/2020 by Lowell Landers MD at [facility] ()[id number] / [id number] / Prokera Plus-10/03/2020 Implanted: Qty: 1 on 10/03/2020 by Cassie Weathers MD Explanted: 10/07/2020 (Quantity not on file) documented as of this encounter Results Not on filedocumented in this encounter Visit Diagnoses Diagnosis Neurotrophic cornea of left eye - Prima ry documented in this encounter
--- OUTSIDE RECORDS SUMMARY | 2021-01-05 11:21 | CCD | Continuity of Care Document ---
Author Author Reba Morales MD Organization Unknown Address [address] [address] Phone [phone] Care Team Providers Care Pot Puller Name Role Phone Rashaun Morales JR, MD [...] every 4 hours as needed for pain rdb=1100uh 120tabs Rashaun Morales MD 09/19/2020 - 10/05/2020 Nystatin [id number] Suspension 5cc swish and swallow five times [...] Result H/L Range Note CBC With Differential 10/14/[address] [address] [phone] White Blood Count 9.4 10 Normal 4.0-10.0 [...] 36.0-66.0 Lymph % 5.2 % Low 24.0-44.0 [place] % 6.9 % Normal 2.0-8.0 Eos % 2.5 % Normal 0.0-3.0 Baso % 0.2 % Normal 0.0-1.0 Immature Granulocyte % 1.0 % Normal 0-3.0 Nucleated Red Blood Cell % 0.0 % Normal 0-0 Neutrophils # 8.0 10 Normal 1.5-8.5 Lymph # 0.5 10 Low 1.5-5.0 [place] # 0.7 10 Normal 0.0-0.8 Eos # 0.2 10 Normal 0.0-0.5 Baso # 0.0 10 Normal 0.0-0.2 Basic Metabolic Profile 10/14/[address] [id number] [phone] Glucose, Fasting 107 mg/dL High 70-100 Blood Urea Nitrogen 8 mg/dL Normal 7-18 Creatinine For GFR 0.46 mg/dL Low 0.70-1.30 Glomerular Filtration Rate > 60.0 Normal >49 1 Sodium Level 130 mEq/L Low 136-145 Potassium Serum 4.2 mEq/L Normal 3.5-5.1 Chloride Level 96 mEq/L Low 98-107 Carbon Dioxide Level 24 mEq/L Normal 21-32 Anion Gap 10 mEq/L Normal 8-16 Calcium Level 8.9 mg/dL Normal 8.8-10.2 CBC With Differential 09/20/2020 [facility] [address] [place], [place] [id number] [phone] White Blood Count 11.0 10 High 4.0-10.0 [...] 36.0-66.0 Lymph % 9.2 % Low 24.0-44.0 [place] % 9.7 % High 2.0-8.0 Eos % 0.8 % Normal 0.0-3.0 Baso % 0.3 % Normal 0.0-1.0 Immature Granulocyte % 0.8 % Normal 0-3.0 Nucleated Red Blood Cell % 0.0 % Normal 0-0 Neutrophils # 8.7 10 High 1.5-8.5 Lymph # 1.0 10 Low 1.5-5.0 Brook[place] # 1.1 10 High 0.0-0.8 Eos # 0.1 10 Normal 0.0-0.5 Baso # 0.0 10 Normal 0.0-0.2 PT & Aptt 09/20/2020 [facility] nter [address] [place] [address] [phone] Prothrombin Time 12.2 seconds Normal 12.5-14.3 Inr 0.89 Normal 2 Partial Thromboplastin Time 26.8 seconds Normal 24.2-38.5 Comprehensive Metabolic Profil 09/20/2020 [facility] [address] [place] [address] [phone] Glucose, Fasting 110 mg/dL High 70-100 Blood [...] Ratio 1.1 Normal Laboratory test finding 09/20/2020 [facility] [address] [place] [address] [phone] Carcinoembryonic Antigen 8.2 NG/ML High <2.5 4 Influenza A/B RSV Covid Amp 09/08/2020 [facility] [address] [place] [address] [phone] Influenza A Amplification NEGATIVE Normal Negati ve 5 Influenza B Amplification NEGATIVE Normal Negative 6 RSV Amplification NEGATIVE Normal Negative 7 Sars Covid-19 Amplification NEGATIVE Normal Negative 8 Istat Chem8+ Panel 09/08/2020 [facility] nter [address] [place] [address] [phone] iSTAT HCT 50.0 % Normal 38.0-51.0 iSTAT Glucose 115 mg/dL High 70-105 iSTAT Sodium 134 mEq/L Low 136-145 iSTAT Potassium 3.9 mEq/L Normal 3.5-5.1 iSTAT CA++ 4.7 mg/dL Normal 4.5-5.3 iSTAT Chloride 95 mEq/L Low 98-109 iSTAT Co2 24.0 MM/L Normal 23.0-27.0 iSTAT BUN 6 mg/dL Low 8-26 iSTAT Creatinine 0.8 mg/dL Normal 0.6-1.3 CBC With Differential 09/08/2020 [facility] [address] [place], [place] [id number] [phone] White Blood Count 7.7 10 Normal 4.0-10.0 [...] 36.0-66.0 Lymph % 13.3 % Low 24.0-44.0 [place] % 11.1 % High 2.0-8.0 Eos % 1.6 % Normal 0.0-3.0 Baso % 0.1 % Normal 0.0-1.0 Immature Granulocyte % 0.7 % Normal 0-3.0 Nucleated Red Blood Cell % 0.0 % Normal 0-0 Neutrophils # 5.6 10 Normal 1.5-8.5 Lymph # 1.0 10 Low 1.5-5.0 [place] # 0.9 10 High 0.0-0.8 Eos # 0.1 10 Normal 0.0-0.5 Baso # 0.0 10 Normal 0.0-0.2 Liver Profile 09/08/2020 [facility] nter [address] [place], [place] [address] [phone] Ast/Sgot 16 U/L Normal 7-37 Alt/SGPT 21 U/L Normal 12-78 Alkaline Phosphatase 117 U/L Normal 45-117 Bilirubin,Total 0.7 mg/dL Normal 0.2-1.0 Bilirubin,Direct 0.2 mg/dL Normal 0.0-0.2 Total Protein 6.7 GM/DL Normal 6.4-8.2 Albumin 3.5 GM/DL Normal 3.2-5.2 Albumin/Globulin Ratio 1.1 Normal Laboratory test finding 09/08/2020 [facility] [address] [place], [place] [id number] [phone] Lipase 78 U/L Normal 73-393 Lactic Acid Sepsis Protocol 1.2 mmol/L Normal 0.4-2.0 9 CBC With Auto Diff 08/13/2020 [facility] [address] [place] [address] [phone] WBC # Bld Auto 8.4 10*3/uL Normal 4.45-10.71 10 RBC # Bld Auto 5.36 10*6/uL Normal [...] diff Bld NO Laboratory test finding 08/13/[address] [address] [phone] Esr Bld Qn Westrgrn 1 [facility] Normal 0-20 Comprehensive Metabolic Prof 08/13/[address] [address] [phone] BUN SerPl-mCnc 6 mg/dL Low 9-23 Sodium [...] g/dL Normal 5.7-8.2 Laboratory test finding 08/13/[address] [address] [phone] CRP SerPl-mCnc Less Than 2.9 Normal 0.0-5.0 VZV IgG Ser-aCnc 1888.00 [facility] 11 VZV IgM Ser-aCnc <=0.90 <=0.90 12 1 Units are mL/min/1.73 m2 Chronic Kidney Disease Staging per NKF: Stage I & II GFR >=60 Normal to Mildly Decreased Stage III GFR 30-59 Moderately Decreased Stage IV GFR 15-29 Severely Decreased Stage V GFR <15 Very Little GFR Left ESRD GFR <15 on SUPERINTENDENT CAR CONSTRUCTION 2 THERAPUTIC HUMAN INR VALUES INDICATIONS NORMAL RANGES PROPHYLAXIS/TREATMENT OF: VENOUS THROMBOSIS 2.0-3.0 PULMONARY EMBOLISM 2.0-3.0 PREVENTION OF SYSTEMIC EMBOLISM FROM: TISSUE HEART VALVES 2.0-3.0 ACUTE MYOCARDIAL INFARCTION 2.0-3.0 VALVULAR HEART DISEASE 2.0-3.0 ATRIAL FIBRILLATION 2.0-3.0 MECHANICAL VALVES(HIGH RISK) 2.5-3.5 RECURRENT MYOCARDIAL INFARCTION 2.5-3.5 3 Units are mL/min/1.73 m2 Chronic Kidney Disease Staging per NKF: Stage I & II GFR >=60 Normal to Mildly Decreased Stage III GFR 30-59 Moderately Decreased Stage IV GFR 15-29 Severely Decreased Stage V GFR <15 Very Little GFR Left ESRD GFR <15 on SUPERINTENDENT CAR CONSTRUCTION 4 THE CEA ASSAY IS PERFORMED O N THE [employer] BY CHEMILUMINESCENCE AND SHOULD NOT BE COMPARED INTERCHANGEABLY WITH OTHER METHODS. IT SHOULD NOT BE USED ALONE A SCREENING TEST OR DIAGNOSIS FOR THE PRESENCE OR ABSENCE OF MALIGNANT DISEASE. PREDICTIONS OF DISEASE RECURRENCE SHOULD NOT BE BASED SOLELY ON VALUES OBTAINED FROM SERIAL PATIENT SERUM VALUES. 5 Negative results do not prec lude influenza or RSV virus infection and should not be used as the sole basis for treatment or other patient management decisions. 6 Negative results do not prec lude influenza or RSV virus infection and should not be used as the sole basis for treatment or other patient management decisions. 7 Negative results do not prec lude influenza or RSV virus infection and should not be used as the sole basis for treatment or other patient management decisions. 8 A false negative result may occur if [...] pathogens. DISCLAIMER: Testing was performed using the Faveeo SARS-CoV-2 test. This test was developed and its performance characteristics determined by [facility]. This test has not been FDA cleared [...] the authorization is terminated or revoked sooner. 9 Y/N query for Sepsis Lactate Rule: Y 10 HEAD AND FACIAL NUMBNESS 11 Index Interpre tation --------- <135.00 Negative - [...] Screen, ACIF. THIS TEST WAS PERFORMED AT: [facility] [address] ISABELLA BROWNE MD 12 < or = 0.90 Negative 0.91 - [...] more weeks. THIS TEST WAS PERFORMED AT: [facility]/[address] [address] SILVIA CORTEZ MD,PHD Procedures Date Code Description Status 10/07/2020 [id number] Diabetic Retinal Eye Exam Comple jennifer 10/05/2020 62291 Office/Outpatient Established Mo d MDM 30-39 Min Completed 10/03/2020 [id number] Diabetic Retinal Eye Exam Comple [facility] 08/18/2020 80443 Office/Outpatient Established Lo w MDM 20-29 Min Completed 08/01/2020 37398 Office/Outpatient Established Lo w MDM 20-29 Min Completed 06/13/2020 02299 Office/Outpatient Established SF MDM 10-19 Min Completed Medical Devices Description No Information Available Encounters Type Date Location Provider Dx Diagnosis Office Visit 10/05/2020 9:40a [facility] Morales MD 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, 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 R13.10 Dysphagia, unspecified Z71.6 Tobacco abuse counseling F17.210 Nicotine dependence, cigaret marcelo, uncomplicated Office Visit 08/18/2020 8:20a [facility]INE Lal JR B02.8 Zoster with other complicati ons Office Visit 08/01/2020 9:40a [facility] Lal JR R13.10 Dysphagia, unspecified K21.9 Gastro-esophageal reflux dis ease without esophagitis Office Visit 06/13/2020 3:20p [facility] Lal JR K21.9 Gastro-esophageal reflux [...] 12/02/2020 8:50 am - Lab Schedule at [facility] * 12/06/2020 11:40 am - Rashaun Morales MD at [facility] 10/05/2020 - Rashaun Morales MD* 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, unspecified * C79.31 Secondary malignant neoplasm of brain * R13.10 Dysphagia, unspecified * Z71.6 Tobacco abuse counseling * F17.210 Nicotine dependence, cigarettes, uncomplicated* Comments:* Smoking cessation discussed. * All * New Medication:* No Active Medications - Functional Status Description No Information Available Mental Status Description No Information Available Referrals Refer to Dr Reason for Referral Status Appt Date Anika Jarvis MD CONSULT FOR HEADACHES, NUMBNESS LT SIDE OF FACE Patient Notified 10/11/2020 [address] [place] [address] [phone] Sudhakar Gonsalves MD EMELY CONSULT FOR SCREENING EGD DX: ALISA RE GERD AND DYSPHAGIA Patient Notified 11/07/2020 Gastroenterology & Hepatology [address] [facility], [place] [address] [phone] Girma Auguste MD CONSULT FOR SCREENING EGD Patient Notifi ed 09/15/2020 [address] [facility] [address] [phone]
--- OUTSIDE RECORDS SUMMARY | 2021-01-05 11:21 | CCD | Continuity of Care Document ---
Author Organization Unknown Address Unknown Phone Unavailable Care Team Providers Care Shaper Set Up Operator Name Role Phone Rashaun Morales JR, [...] every 4 hours as needed for pain glo=[id number] 120tabs Rashaun Morales MD 09/19/2020 - 10/05/2020 Nystatin [id number]/ML Suspension 5cc swish and swallow five times [...] H/L Range Note CBC With Differential 10/14/[address] [address] [phone] White Blood Count 9.4 10 Normal 4.0-10.0 [...] 36.0-66.0 Lymph % 5.2 % Low 24.0-44.0 [place] % 6.9 % Normal 2.0-8.0 Eos % 2.5 % Normal 0.0-3.0 Baso % 0.2 % Normal 0.0-1.0 Immature Granulocyte % 1.0 % Normal 0-3.0 Nucleated Red Blood Cell % 0.0 % Normal 0-0 Neutrophils # 8.0 10 Normal 1.5-8.5 Lymph # 0.5 10 Low 1.5-5.0 [place] # 0.7 10 Normal 0.0-0.8 Eos # 0.2 10 Normal 0.0-0.5 Baso # 0.0 10 Normal 0.0-0.2 Basic Metabolic Profile 10/14/[address] [address] [phone] Glucose, Fasting 107 mg/dL High 70-100 Blood [...] mg/dL Normal 8.8-10.2 CBC With Differential 09/20/2020 [facility] [address] [place] [address] [phone] White Blood Count 11.0 10 High 4.0-10.0 [...] 36.0-66.0 Lymph % 9.2 % Low 24.0-44.0 [place] % 9.7 % High 2.0-8.0 Eos % 0.8 % Normal 0.0-3.0 Baso % 0.3 % Normal 0.0-1.0 Immature Granulocyte % 0.8 % Normal 0-3.0 Nucleated Red Blood Cell % 0.0 % Normal 0-0 Neutrophils # 8.7 10 High 1.5-8.5 Lymph # 1.0 10 Low 1.5-5.0 [place] # 1.1 10 High 0.0-0.8 Eos # 0.1 10 Normal 0.0-0.5 Baso # 0.0 10 Normal 0.0-0.2 PT & Aptt 09/20/2020 [facility] nter [address] [place] [address] [phone] Prothrombin Time 12.2 seconds Normal 12.5-14.3 Inr 0.89 Normal 2 Partial Thromboplastin Time 26.8 seconds Normal 24.2-38.5 Comprehensive Metabolic Profil 09/20/2020 [facility] [address] [place] [address] [phone] Glucose, Fasting 110 mg/dL High 70-100 Blood [...] Ratio 1.1 Normal Laboratory test finding 09/20/2020 [facility] [address] [place] [address] [phone] Carcinoembryonic Antigen 8.2 NG/ML High <2.5 4 Influenza A/B RSV Covid Amp 09/08/2020 [facility] [address] [place] [address] [phone] Influenza A Amplification NEGATIVE Normal Negati ve 5 Influenza B Amplification NEGATIVE Normal Negative 6 RSV Amplification NEGATIVE Normal Negative 7 Sars Covid-19 Amplification NEGATIVE Normal Negative 8 Istat Chem8+ Panel 09/08/2020 [facility] nter [address] [place] [address] [phone] iSTAT HCT 50.0 % Normal 38.0-51.0 iSTAT Glucose 115 mg/dL High 70-105 iSTAT Sodium 134 mEq/L Low 136-145 iSTAT Potassium 3.9 mEq/L Normal 3.5-5.1 iSTAT CA++ 4.7 mg/dL Normal 4.5-5.3 iSTAT Chloride 95 mEq/L Low 98-109 iSTAT Co2 24.0 MM/L Normal 23.0-27.0 iSTAT BUN 6 mg/dL Low 8-26 iSTAT Creatinine 0.8 mg/dL Normal 0.6-1.3 CBC With Differential 09/08/2020 [facility] [address] [place] [address] [phone] White Blood Count 7.7 10 Normal 4.0-10.0 [...] 36.0-66.0 Lymph % 13.3 % Low 24.0-44.0 [place] % 11.1 % High 2.0-8.0 Eos % 1.6 % Normal 0.0-3.0 Baso % 0.1 % Normal 0.0-1.0 Immature Granulocyte % 0.7 % Normal 0-3.0 Nucleated Red Blood Cell % 0.0 % Normal 0-0 Neutrophils # 5.6 10 Normal 1.5-8.5 Lymph # 1.0 10 Low 1.5-5.0 [place] # 0.9 10 High 0.0-0.8 Eos # 0.1 10 Normal 0.0-0.5 Baso # 0.0 10 Normal 0.0-0.2 Liver Profile 09/08/2020 [facility] nter [address] [place] [address] [phone] Ast/Sgot 16 U/L Normal 7-37 Alt/SGPT 21 U/L Normal 12-78 Alkaline Phosphatase 117 U/L Normal 45-117 Bilirubin,Total 0.7 mg/dL Normal 0.2-1.0 Bilirubin,Direct 0.2 mg/dL Normal 0.0-0.2 Total Protein 6.7 GM/DL Normal 6.4-8.2 Albumin 3.5 GM/DL Normal 3.2-5.2 Albumin/Globulin Ratio 1.1 Normal Laboratory test finding 09/08/2020 [facility] [address] [place] [address] [phone] Lipase 78 U/L Normal 73-393 Lactic Acid Sepsis Protocol 1.2 mmol/L Normal 0.4-2.0 9 CBC With Auto Diff 08/13/2020 [facility] [address] [place] [address] [phone] WBC # Bld Auto 8.4 10*3/uL Normal [...] diff Bld NO Laboratory test finding 08/13/[address] [address] [phone] Esr Bld Qn Westrgrn 1 [facility] Normal 0-20 Comprehensive Metabolic Prof 08/13/[address] [address] [phone] BUN SerPl-mCnc 6 mg/dL Low 9-23 Sodium [...] g/dL Normal 5.7-8.2 Laboratory test finding 08/13/[address] [address] [phone] CRP SerPl-mCnc Less Than 2.9 Normal 0.0-5.0 [...] Little GFR Left ESRD GFR <15 on VP INFORMATION TECHNOLOGY 2 THERAPUTIC HUMAN INR VALUES INDICATIONS NORMAL [...] Little GFR Left ESRD GFR <15 on VP INFORMATION TECHNOLOGY 4 THE CEA ASSAY IS PERFORMED O N THE [employer] BY CHEMILUMINESCENCE AND SHOULD NOT BE COMPARED [...] pathogens. DISCLAIMER: Testing was performed using the [employer] SARS-CoV-2 test. This test was developed and its performance characteristics determined by [employer]. This test has not been FDA cleared [...] Screen, ACIF. THIS TEST WAS PERFORMED AT: [facility] [address] ISABELLA BROWNE MD 12 < or = [...] more weeks. THIS TEST WAS PERFORMED AT: [facility] [employer] [facility]/[address] [address] [place] [address] SILVIA CORTEZ MD,PHD Procedures Date Code Description Status 10/07/2020 [id number] Diabetic Retinal Eye Exam Comple [facility] 10/05/2020 [address] Office/Outpatient Established Mo d MDM 30-39 Min Completed 10/03/2020 [id number] Diabetic Retinal Eye Exam Comple jennifer 08/18/2020 [address] Office/Outpatient Established Lo w MDM 20-29 Min Completed 08/01/2020 220[address] Office/Outpatient Established Lo w MDM 20-29 Min Completed 06/13/2020 [address] Office/Outpatient Established SF MDM 10-19 Min Completed Medical Devices Description No Information Available Encounters Type Date Location Provider Dx Diagnosis Office Visit 10/05/2020 9:40a [facility]CYany Morales MD 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, 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 * 12/06/2020 11:40 am - Rashaun Morales MD at [facility] 10/05/2020 - Rashaun Morales MD* [...] SIDE OF FACE Patient Notified 10/11/2020 [address] [place] [address] [phone] Sudhakar Gonsalves MD EMELY CONSULT FOR SCREENING EGD DX: ALISA OGDEN GERD AND DYSPHAGIA Created [facility] [address] [place] [address] [phone] Girma Auguste MD CONSULT FOR SCREENING EGD Patient Notifi ed 09/15/2020 [address] [facility] [address] [phone]
--- OUTSIDE RECORDS SUMMARY | 2021-01-05 11:22 | CCD | Summary of Care ---
Author Author [facility] Address Unknown Phone Unavailable Care Team Providers Care Plaster Tender Name Role Phone Andrew Wade MD, [facility] PCP Reason for Visit * Reason Comments Corneal Abrasion Encounter Details Care Team Description Date Type Department Cassie Weathers MD [address] [place] [address] [place] [address] Abrasion of left cornea, subsequent enco unter (Primary Dx); Neurotrophic cornea of left eye 10/14/2020 Office Visit [facility] [address] [place] [address] Allergies No Known Active Allergiesdocumented as of this encounter (statuses as of 10/14/2020) Medications End Date Status Medication Sig Dispensed Refills Start Date Active Atorvastatin Calcium 20 Take 20 mg by 0 MG Oral Tablet (LIPITOR) mouth daily Active Gabapentin 300 MG Oral Take 300 mg 0 Capsule (NEURONTIN) by mouth Three times daily as needed Active Biofreeze 4 % External Apply 0 Gel (Menthol (Topical topically as Analgesic)) needed 10/15/2020 Active Diclofenac Sodium 1 % Apply 2 g 100 g 0 08/24 External Gel (VOLTAREN) topically 1 Four times daily as needed 09/14/2021 Active Pantoprazole Sodium 40 MG Take 1 tablet 60 tablet 11 Oral Tablet Delayed by mouth Two 1 Release (PROTONIX) Times Daily 10/17/2020 Active Ofloxacin 0.3 % Place 1 drop 5 mL 0 Ophthalmic Solution into the left 1 (OCUFLOX) eye Four times daily Active Gabapentin 250 MG/5ML Take by mouth 0 Oral Solution (NEURONTIN) Three times daily Status Hospital, Clinic, or Ordered Dose Route Frequency Start End Date Other Facility Date Administered Medication Active lidocaine-EPINEPHrine 1 1 mL INFILTRATION Once 0 %-1:[id number] injection 1 mL 21 1 Active erythromycin (ROMYCIN) 1 cm LEFT EYE 4 times per day 10/07 ophthalmic ointment 1 cm 21 1 Active proparacaine (ALCAINE) 1 drop Both Eyes Once 10/15/19 0.5 % ophthalmic solution 21 1 1 drop documented as of this encounter (statuses as of 10/14/2020) Active Problems Problem Noted Date Malignant neoplasm [...] daughter Caroline Solares, , son Alex Mae [phone] MOLST on file: no Short Social History: He lives with his , they have 1 son who lives with them and 1 daughter who resides ne ar them. He has several siblings, has 1 surviving sibling, others d. 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 Brain metastases Dysphagia documented as of this encounter (statuses as of 10/14/2020) Immunizations Name Administration Dates Next Due Pfizer SARS-CoV-2 06/14/2020, 05/24/2020 Vaccination documented as of this encounter Social History Date Tobacco Use Types Packs/Day Years Used Current Every Day Smoker Smokeless Tobacco: Never Used Comments Alcohol Use Standard Drinks/Week Not Currently 0 (1 standard drink = 0.6 o z pure alcohol) Sex Assigned at Date Recorded Not on file Industry Job Start Date Occupation Not on file Not on file Not on file Date Recorded COVID-19 Exposure Response 10/14/2020 12:37 PM EDT In the last month, have you been in contact with No / Unsure someone who was confirmed or suspected to have Coronavirus / COVID-19? documented as of this encounter Last Filed Vital Signs Not on filedocumented in this encounter Patient Instructions * Patient Instructions* Cassie Weathers MD - 10/14/2020 1:15 PM EDT Please follow the physician's instructions as communicated during the office vis it. Medications should be taken/given as prescribed or recommended by the physic sina. Please keep the follow-up appointment as recommended by the physician and r eturn sooner if any changes, questions, or concerns arise. Continue using the ointment to the right eye twice a day documented in this encounter Progress Notes * Cassie Weathers MD - 10/14/2020 1:15 PM EDT Chief Complaint Patient presents with Corneal Abrasion HPI Corneal Abrasion In left eye. Comments JEN 10/07/20. S/p Lateral Tarsorrhaphy OS. 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 Patient tired from radiation today. Jose Manuel nino sts left eye is fine. Denies ocular pain. Med Emycin oint TID OS. Last edited by Lily Olvera on 10/14/2020 1:20 PM. (History) History: Patient's medications, allergies, past medical, surgical, social, and f amily histories were reviewed and updated as appropriate. OPHTH Exam: Base Eye Exam Visual Acuity (Snellen - Linear) Right Left Dist cc 20/20 -2 20/60 Dist ph cc 20/30 Correction: Glasses Tonometry (Tonopen, 1:27 PM) Right Left Pressure 17 Unable to obtain cachorro os due to tarrsorphy Pupils Dark React APD Right 2 Minimal None Left 2 Minimal None Dilation Both eyes: No Dilation @ 1:28 PM Slit Lamp and Fundus Exam External Exam Right Left External Normal Normal Slit Lamp Exam Right Left Lids/Lashes Normal Normal, no ptosis Conjunctiva/Sclera White and Quiet 1+ inj Cornea Clear no epi defect, no infiltrate Anterior Chamber Deep [...] Mae is a 65 y.o. male with: DX/Plan: Reba Mae is a 64 y.o. 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 F/U: Return in about 1 week (around 10/21/2020). Dilate no Cassie Weathers M.D. Resident's history reviewed, patient interviewed and examined. I agree. On exam I find: epi intact; plan to remove bolsters next visit Assessment and plan reviewed with resident. I, Brittany Mejia MD, agree with the diagnosis and treatment plan as documented by the resident. Brittany Mejia M.D. Ophthalmology Attending documented in this encounter Nursing Notes * Lily Olvera - 10/14/2020 1:15 PM EDT I, Lily Olvera, worked up this patient. Lily Olvera documented in this encounter Plan of Treatment Care Team Description Date Type Specialty 10/21/2020 Office Visit Ophthalmology Jonas Ordaz MD [address] [place] [address] 10/25/2020 Office Visit Neurosurgery Ken Brooks MD [address] [place] [address] 10/26/2020 Office Visit Radiation Oncology Health Maintenance Due Date Last Done Comments [...] 05/24/2020 Hepatitis C Screening (B. Completed 09/08/2020, [id number]) 09/08/2020 HIB Vaccines Aged Out No longer [...] ot Implanted Type Area Manufactur er 05/18/2022 [id number] / / [id number] Gi- Saf-T-Pexy Fasteners - N/A: Stomach HALYARD [id number] HEALTH Implanted: Qty: 1 on 09/13/2020 by Lowell Landers MD at [facility] 07/15/2023 [id number] / / [id number] Gi- Entuit G-Tube 18fr- Sbrd-1 - N/A: Stomach [employer] [id number] Implanted: Qty: 1 on 09/13/2020 by Lowell Landers MD at [facility] [id number] / [id number] / Prokera Plus-10/03/2020 Implanted: Qty: 1 on 10/03/2020 by Cassie Weathers MD Explanted: 10/07/2020 (Quantity not on file) documented as of this encounter Results Not on filedocumented in this encounter Visit Diagnoses Diagnosis Abrasion of left cornea, subsequent enc ounter - Primary Neurotrophic cornea of left eye documented in this encounter
--- OUTSIDE RECORDS SUMMARY | 2021-01-05 11:22 | CCD | Continuity of Care Document ---
Author Author Reba Morales MD Organization Unknown Address [address] [address] Phone [phone] Care Team Providers Care Tattoo And Body Artist Name Role Phone Rashaun Morales JR, MD [...] every 4 hours as needed for pain ufl=[id number] 120tabs Rashaun Morales MD 09/19/2020 - 10/05/2020 Nystatin [id number]/ML Suspension 5cc swish and swallow five times [...] H/L Range Note CBC With Differential 10/14/[address] [address] [phone] White Blood Count 9.4 10 Normal 4.0-10.0 [...] 36.0-66.0 Lymph % 5.2 % Low 24.0-44.0 [place] % 6.9 % Normal 2.0-8.0 Eos % 2.5 % Normal 0.0-3.0 Baso % 0.2 % Normal 0.0-1.0 Immature Granulocyte % 1.0 % Normal 0-3.0 Nucleated Red Blood Cell % 0.0 % Normal 0-0 Neutrophils # 8.0 10 Normal 1.5-8.5 Lymph # 0.5 10 Low 1.5-5.0 [place] # 0.7 10 Normal 0.0-0.8 Eos # 0.2 10 Normal 0.0-0.5 Baso # 0.0 10 Normal 0.0-0.2 Basic Metabolic Profile 10/14/[address] [id number] [phone] Glucose, Fasting 107 mg/dL High 70-100 Blood [...] mg/dL Normal 8.8-10.2 CBC With Differential 09/20/2020 [facility] [address] [place], [place] [address] [phone] White Blood Count 11.0 10 High 4.0-10.0 [...] 36.0-66.0 Lymph % 9.2 % Low 24.0-44.0 [place] % 9.7 % High 2.0-8.0 Eos % 0.8 % Normal 0.0-3.0 Baso % 0.3 % Normal 0.0-1.0 Immature Granulocyte % 0.8 % Normal 0-3.0 Nucleated Red Blood Cell % 0.0 % Normal 0-0 Neutrophils # 8.7 10 High 1.5-8.5 Lymph # 1.0 10 Low 1.5-5.0 [place] # 1.1 10 High 0.0-0.8 Eos # 0.1 10 Normal 0.0-0.5 Baso # 0.0 10 Normal 0.0-0.2 PT & Aptt 09/20/2020 [facility] nter [address] [place] [address] [phone] Prothrombin Time 12.2 seconds Normal 12.5-14.3 Inr 0.89 Normal 2 Partial Thromboplastin Time 26.8 seconds Normal 24.2-38.5 Comprehensive Metabolic Profil 09/20/2020 [facility] [address] [place] [address] [phone] Glucose, Fasting 110 mg/dL High 70-100 Blood [...] Ratio 1.1 Normal Laboratory test finding 09/20/2020 [facility] [address] [place] [address] [phone] Carcinoembryonic Antigen 8.2 NG/ML High <2.5 4 Influenza A/B RSV Covid Amp 09/08/2020 [facility] [address] [place] [address] [phone] Influenza A Amplification NEGATIVE Normal Negati ve 5 Influenza B Amplification NEGATIVE Normal Negative 6 RSV Amplification NEGATIVE Normal Negative 7 Sars Covid-19 Amplification NEGATIVE Normal Negative 8 Istat Chem8+ Panel 09/08/2020 [facility] nter [address] [place] [address] [phone] iSTAT HCT 50.0 % Normal 38.0-51.0 iSTAT Glucose 115 mg/dL High 70-105 iSTAT Sodium 134 mEq/L Low 136-145 iSTAT Potassium 3.9 mEq/L Normal 3.5-5.1 iSTAT CA++ 4.7 mg/dL Normal 4.5-5.3 iSTAT Chloride 95 mEq/L Low 98-109 iSTAT Co2 24.0 MM/L Normal 23.0-27.0 iSTAT BUN 6 mg/dL Low 8-26 iSTAT Creatinine 0.8 mg/dL Normal 0.6-1.3 CBC With Differential 09/08/2020 [facility] [address] [place], [place] [address] [phone] White Blood Count 7.7 10 Normal 4.0-10.0 [...] 36.0-66.0 Lymph % 13.3 % Low 24.0-44.0 [place] % 11.1 % High 2.0-8.0 Eos % 1.6 % Normal 0.0-3.0 Baso % 0.1 % Normal 0.0-1.0 Immature Granulocyte % 0.7 % Normal 0-3.0 Nucleated Red Blood Cell % 0.0 % Normal 0-0 Neutrophils # 5.6 10 Normal 1.5-8.5 Lymph # 1.0 10 Low 1.5-5.0 [place] # 0.9 10 High 0.0-0.8 Eos # 0.1 10 Normal 0.0-0.5 Baso # 0.0 10 Normal 0.0-0.2 Liver Profile 09/08/2020 [facility] nter [address] [place], [place] [address] [phone] Ast/Sgot 16 U/L Normal 7-37 Alt/SGPT 21 U/L Normal 12-78 Alkaline Phosphatase 117 U/L Normal 45-117 Bilirubin,Total 0.7 mg/dL Normal 0.2-1.0 Bilirubin,Direct 0.2 mg/dL Normal 0.0-0.2 Total Protein 6.7 GM/DL Normal 6.4-8.2 Albumin 3.5 GM/DL Normal 3.2-5.2 Albumin/Globulin Ratio 1.1 Normal Laboratory test finding 09/08/2020 [facility] [address] [place], [place] [address] [phone] Lipase 78 U/L Normal 73-393 Lactic Acid Sepsis Protocol 1.2 mmol/L Normal 0.4-2.0 9 CBC With Auto Diff 08/13/2020 [facility] [address] [place] [address] [phone] WBC # Bld Auto 8.4 10*3/uL Normal [...] diff Bld NO Laboratory test finding 08/13/[address] [address] [phone] Esr Bld Qn Westrgrn 1 [facility] Normal 0-20 Comprehensive Metabolic Prof 08/13/[address] [address] [phone] BUN SerPl-mCnc 6 mg/dL Low 9-23 Sodium [...] g/dL Normal 5.7-8.2 Laboratory test finding 08/13/[address] [address] [phone] CRP SerPl-mCnc Less Than 2.9 Normal 0.0-5.0 [...] Little GFR Left ESRD GFR <15 on QUARTER SECTION IRONER 2 THERAPUTIC HUMAN INR VALUES INDICATIONS NORMAL [...] Little GFR Left ESRD GFR <15 on QUARTER SECTION IRONER 4 THE CEA ASSAY IS PERFORMED O N THE [employer] BY CHEMILUMINESCENCE AND SHOULD NOT BE COMPARED [...] pathogens. DISCLAIMER: Testing was performed using the [employer] SARS-CoV-2 test. This test was developed and [...] Screen, ACIF. THIS TEST WAS PERFORMED AT: [facility] [address] ISABELLA BROWNE MD 12 < or = [...] more weeks. THIS TEST WAS PERFORMED AT: [facility] [address] SILVIA CORTEZ MD,PHD Procedures Date Code Description Status 10/07/2020 [id number] Diabetic Retinal Eye Exam Comple jennifer 10/05/2020 [address] Office/Outpatient Established Mo d MDM 30-39 Min Completed 10/03/2020 [id number] Diabetic Retinal Eye Exam Comple [facility] 08/18/2020 [address]79[address] Office/Outpatient Established Lo w MDM 20-29 Min Completed 08/01/2020 43991 Office/Outpatient Established Lo w MDM 20-29 Min Completed 06/13/2020 88666 Office/Outpatient Established SF MDM 10-19 Min Completed Medical Devices Description No Information Available Encounters Type Date Location Provider Dx Diagnosis Office Visit 10/05/2020 9:40a [facility]CYany Morales MD 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, 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 * 12/06/2020 11:40 am - Rashaun Morales MD at [facility] 10/05/2020 - Rashaun Morales MD* [...] SIDE OF FACE Patient Notified 10/11/2020 [address] [place] [address] [phone] Sudhakar Gonsalves MD EMELY CONSULT FOR SCREENING EGD DX: ALISA OGDEN GERD AND DYSPHAGIA Created [facility] [address] [place] [address] [phone] Girma Auguste MD CONSULT FOR SCREENING EGD Patient Notifi ed 09/15/2020 [address] [facility] [address] [phone]
--- OUTSIDE RECORDS SUMMARY | 2021-01-05 11:22 | CCD | Summary of Care ---
Author Author [facility] Organization [facility] Address Unknown Phone Unavailable Care Team Providers Care Candy Cutter Machine Name Role Phone Andrew Wade MD, Rashaun Ayala PCP [phone] Encounter Details Care Team Description Date Type Department 10/01/2020 [facility] TRANSFER CE NTER Encounter [address] [place] [address] Allergies No Known Active Allergiesdocumented as of this encounter (statuses as of 10/16/2020) Medications End Date Status Medication Sig Dispensed [...] mouth Two 1 Release (PROTONIX) Times Daily documented as of this encounter (statuses as of 10/16/2020) Active Problems Problem Noted Date Malignant neoplasm [...] daughter Caroline Solares, , son Alex Mae [phone] MOLST on file: no Short Social History: He lives with his , they have 1 son who lives with them and 1 daughter who resides ne ar them. He has several siblings, has 1 surviving sibling, others d. 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 Brain metastases Dysphagia documented as of this encounter (statuses as of 10/16/2020) Immunizations Name Administration Dates Next Due Pfizer SARS-CoV-2 06/14/2020, 05/24/2020 Vaccination documented as of this encounter Social History Date Tobacco Use Types Packs/Day Years Used Current Every Day Smoker Sex Assigned at Date Recorded Not on file Industry Job Start Date Occupation Not on file Not on file Not on file Date Recorded COVID-19 Exposure Response 10/01/2020 10:19 PM EDT In the last month, have you been in contact with No / Unsure someone who was confirmed or suspected to have Coronavirus / COVID-19? documented as of this encounter Last Filed Vital Signs Not on filedocumented in this encounter Progress Notes * Gurinder Patiño, RN - 10/01/2020 7:01 PM EDT I was asked to ascertain bed availability for this patient and have determined t hat no appropriate bed for this individual patient is available at either campus . This includes hallway beds or other accommodations that we would customarily m sarah for this individual patient's needs per Dr. Mckenzie documented in this encounter Plan of Treatment Care Team Description Date Type Specialty 10/21/2020 Office Visit Ophthalmology Jonas Ordaz MD [address] [facility] [address] [facility] [address] [place] [address] 10/25/2020 Office Visit Neurosurgery Todd, Ken Tolentino MD [address] [place] [address] [phone] 10/26/2020 Office Visit Radiation Oncology Health Maintenance [...] 05/24/2020 Hepatitis C Screening (B. Completed 09/08/2020, [id number]) 09/08/2020 HIB Vaccines Aged Out No longer [...] ot Implanted Type Area Manufactur er 05/18/2022 [id number] / / [id number] Gi- Saf-T-Pexy Fasteners - N/A: Stomach HALYARD [id number] HEALTH Implanted: Qty: 1 on 09/13/2020 by Lowell Landers MD at [facility] IN[facility]IENT 07/15/2023 [id number] / / [id number] Gi- Entuit G-Tube 18fr- Sbrd-1 - N/A: Stomach [employer] [id number] Implanted: Qty: 1 on 09/13/2020 by Lowell Landers MD at [facility] documented as of this encounter Results Not on filedocumented in this encounter
--- OUTSIDE RECORDS SUMMARY | 2021-01-05 11:22 | CCD | Summary of Care ---
Author Author [facility] Address Unknown Phone Unavailable Care Team Providers Care Regional Education Coordinator Name Role Phone Andrew Wade MD, Rodney F PCP [phone] Reason for Visit * Reason Comments Corneal Problem Encounter Details Care Team Description Date Type Department Cassie Weathers MD [address] [facility] [place] [address] [place] [address] Abrasion of left cornea, subsequent enco unter (Primary Dx); Neurotrophic cornea of left eye 10/07/2020 Office Visit [facility] [address] [facility] [place] [address] [place] [address] Allergies No Known Active Allergiesdocumented as of this encounter (statuses as of 10/07/2020) Medications End Date Status Medication Sig Dispensed [...] mouth Two 1 Release (PROTONIX) Times Daily 10/12/2020 Active Erythromycin 5 MG/GM Place 0.5 3.5 g 0 10/02 Ophthalmic Ointment inches into 1 (ROMYCIN) the left eye Three times daily for 10 days 10/17/2020 Active Ofloxacin 0.3 % Place 1 drop 5 mL 0 Ophthalmic Solution into the left 1 (OCUFLOX) eye Four times daily Active Gabapentin 250 MG/5ML Take by mouth 0 Oral Solution (NEURONTIN) Three times daily Status Hospital, Clinic, or Ordered Dose Route Frequency Start End Date Other Facility Date Administered Medication Active lidocaine-EPINEPHrine 1 1 mL INFILTRATION Once 0 %-1:498022 injection 1 mL 21 1 Active erythromycin (ROMYCIN) 1 cm LEFT EYE 4 times per day 10/07 ophthalmic ointment 1 cm 21 1 documented as of this encounter (statuses as of 10/07/2020) Active Problems Problem Noted Date Malignant neoplasm [...] Goals of care: continue work up and nayda atment for cancer, all medical interventions Code status: full code, his family know s his wishes HCP: 09/12/2020 Primary: Winter, Secondary: daughter Caroline Solares, , son Alex Mae [phone] MOLST on file: no Short Social History: He lives with his , they have 1 son who lives with them and 1 daughter who resides ne ar them. He has several siblings, has 1 surviving sibling, others d. 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 Brain metastases Dysphagia documented as of this encounter (statuses as of 10/07/2020) Immunizations Name Administration Dates Next Due [employer] SARS-CoV-2 06/14/2020, 05/24/2020 Vaccination documented as of this encounter Social History Date Tobacco Use Types Packs/Day Years Used Current Every Day Smoker Smokeless Tobacco: Never Used Sex Assigned at Date Recorded Not on file Industry Job Start Date Occupation Not on file Not on file Not on file Date Recorded COVID-19 Exposure Response 10/07/2020 9:40 AM EDT In the last month, have you been in contact with No / Unsure someone who was confirmed or suspected to have Coronavirus / COVID-19? documented as of this encounter Last Filed Vital Signs Not on filedocumented in this encounter Patient Instructions * Patient Instructions* Cassie Weathers MD - 10/07/2020 10:00 AM EDT Please follow the physician's instructions as communicated during the office vis it. Medications should be taken/given as prescribed or recommended by the physic sina. Please keep the follow-up appointment as recommended by the physician and r eturn sooner if any changes, questions, or concerns arise. documented in this encounter Progress Notes * Cassie Weathers MD - 10/07/2020 10:00 AM EDT No chief complaint on file. HPI Dr Morris 4 day check- K Abrerica. 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 Not sleeping Last edited by MILDRED Chapa on 10/07/2020 9:58 AM. (History) History: Patient's medications, allergies, past medical, surgical, social, and f amily histories were reviewed and updated as appropriate. OPHTH Exam: Base Eye Exam Visual Acuity (Snellen - Linear) Right Left Dist cc 20/20 -1 20/150 Dist ph cc 20/125 Correction: Glasses Prokera OS Slit Lamp and Fundus Exam External Exam Right Left External Normal Normal Slit Lamp Exam Right Left Lids/Lashes Normal Normal, no ptosis Conjunctiva/Sclera White and Quiet 1+ inj Cornea Clear 5.2 x 4 mm epi defect, no infiltrate Anterior Chamber Deep and Quiet Deep and Quiet Iris Flat, Round Flat, Round, no TID Lens 1+ NS 1+ NS Vitreous Clear Clear Reba Mae had no medications administered during this visit. The following tests were performed today and reviewed with the patient (for the professional interpretation refer to the Oph Proc tab in chart review): Procedure Lateral Tarsorrhaphy Left Eye Risks, benefits and alternatives of procedure reviewed with the patient. An info rmed consent was obtained. Areas was anesthestized with 3ml of lidocaine and epi nephrine. A chalazion clamp was used to secure and john the upper eyelid. A No. 11 blade was used to cut along the jorge line of the lateral upper eyelid.The pos terior lamella was then grasped with castellon forceps and a thin stripe of posteri or lamella was excised using Roselyn scissors. A similar procedure was performe d on lower eyelid. Both arms of a double-armed 4-0 nylon suture were passed thr ough an upper eyelid bolster, the upper and lower eyelid and a lower eyelid bols ter. The suture was pulled tight over the bolsters and tied on the lower lid. Er ythromycin ointment was placed over the area. The patient tolerated the procedure well. The attending was present throughout the procedure. DX/Plan: Reba Mae is a 64 y.o. 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 F/U: Return in about 1 week (around 10/14/2020) for general clinic. Dilate no Weathers, Cassie, M.D. Resident's history reviewed, patient interviewed and examined. I agree. On exam I find: prokera removed as membrane broken; still with large epi defect The above detailed procedure was performed under my supervision, after I marked the correct eye and participated in the time-out process. I was present for cri tical and kebede portions of the procedure. Assessment and plan reviewed with resident. I, Brittany Mejia MD, agree with the diagnosis and treatment plan as documented by the resident. Brittany Mejia M.D. Ophthalmology Attending documented in this encounter Nursing Notes * Tamela Chao COT - 10/07/2020 10:00 AM EDT I, Tamela Chao, worked up this patient. Tamela Chao COT documented in this encounter Plan of Treatment Care Team Description Date Type Specialty 10/14/2020 Office Visit Ophthalmology Jonas Ordaz MD [address] [place] [address] 10/25/2020 Office Visit Neurosurgery Ken Brooks MD [address], [place] [id number] 10/26/2020 Office Visit Radiation Oncology Health Maintenance [...] 05/24/2020 Hepatitis C Screening (B. Completed 09/08/2020, [id number]) 09/08/2020 HIV Screening Completed 09/09/2020 HIB Vaccines Aged Out No longer eligible [...] ot Implanted Type Area Manufactur er 05/18/2022 [id number] / / [id number] Gi- Saf-T-Pexy Fasteners - N/A: Stomach [employer]ARD [id number] HEALTH Implanted: Qty: 1 on 09/13/2020 by Lowell Landers MD at [facility] IN[facility]IENT 07/15/2023 [id number] / / [id number] Gi- Entuit G-Tube 18fr- Sbrd-1 - N/A: Stomach [employer] [id number] Implanted: Qty: 1 on 09/13/2020 by Lowell Landers MD at [facility] [id number] / [id number] / Prokera Plus-10/03/2020 Implanted: Qty: 1 on 10/03/2020 by Cassie Weathers MD Explanted: 10/07/2020 (Quantity not on file) documented as of this encounter Results Not on filedocumented in this encounter Visit Diagnoses Diagnosis Abrasion of left cornea, subsequent enc ounter - Primary Neurotrophic cornea of left eye documented in this encounter
--- OUTSIDE RECORDS SUMMARY | 2021-01-05 11:22 | CCD | Continuity of Care Document ---
Author Author Reba Morales MD Organization Unknown Address [address] [address] Phone [phone] Care Team Providers Care Mems Device Scientist Name Role Phone Rashaun Morales JR, MD [...] every 4 hours as needed for pain cfm=[id number] 120tabs Rashaun Morales MD 09/19/2020 - 10/05/2020 Nystatin 452552Bstp/ML Suspension 5cc swish and swallow five times [...] Result H/L Range Note CBC With Differential 09/20/2020 [facility] [address] [place] [address] [phone] White Blood Count 11.0 10 High 4.0-10.0 [...] 36.0-66.0 Lymph % 9.2 % Low 24.0-44.0 [place] % 9.7 % High 2.0-8.0 Eos % 0.8 % Normal 0.0-3.0 Baso % 0.3 % Normal 0.0-1.0 Immature Granulocyte % 0.8 % Normal 0-3.0 Nucleated Red Blood Cell % 0.0 % Normal 0-0 Neutrophils # 8.7 10 High 1.5-8.5 Lymph # 1.0 10 Low 1.5-5.0 [place] # 1.1 10 High 0.0-0.8 Eos # 0.1 10 Normal 0.0-0.5 Baso # 0.0 10 Normal 0.0-0.2 PT & Aptt 09/20/2020 [facility] nter [address] [place] [address] [phone] Prothrombin Time 12.2 seconds Normal 12.5-14.3 Inr 0.89 Normal 1 Partial Thromboplastin Time 26.8 seconds Normal 24.2-38.5 Comprehensive Metabolic Profil 09/20/[address] [address] [phone] Glucose, Fasting 110 mg/dL High 70-100 Blood [...] Ratio 1.1 Normal Laboratory test finding 09/20/[address] [address] [phone] Carcinoembryonic Antigen 8.2 NG/ML High <2.5 3 Influenza A/B RSV Covid Amp 09/08/[address] [address] [phone] Influenza A Amplification NEGATIVE Normal Negati ve 4 Influenza B Amplification NEGATIVE Normal Negative 5 RSV Amplification NEGATIVE Normal Negative 6 Sars Covid-19 Amplification NEGATIVE Normal Negative 7 Istat Chem8+ Panel 09/08/2020 [facility] nter [address] [place] [address] [phone] iSTAT HCT 50.0 % Normal 38.0-51.0 iSTAT Glucose 115 mg/dL High 70-105 iSTAT Sodium 134 mEq/L Low 136-145 iSTAT Potassium 3.9 mEq/L Normal 3.5-5.1 iSTAT CA++ 4.7 mg/dL Normal 4.5-5.3 iSTAT Chloride 95 mEq/L Low 98-109 iSTAT Co2 24.0 MM/L Normal 23.0-27.0 iSTAT BUN 6 mg/dL Low 8-26 iSTAT Creatinine 0.8 mg/dL Normal 0.6-1.3 CBC With Differential 09/08/2020 [facility] [address] [place] [address] [phone] White Blood Count 7.7 10 Normal 4.0-10.0 [...] 36.0-66.0 Lymph % 13.3 % Low 24.0-44.0 [place] % 11.1 % High 2.0-8.0 Eos % 1.6 % Normal 0.0-3.0 Baso % 0.1 % Normal 0.0-1.0 Immature Granulocyte % 0.7 % Normal 0-3.0 Nucleated Red Blood Cell % 0.0 % Normal 0-0 Neutrophils # 5.6 10 Normal 1.5-8.5 Lymph # 1.0 10 Low 1.5-5.0 [place] # 0.9 10 High 0.0-0.8 Eos # 0.1 10 Normal 0.0-0.5 Baso # 0.0 10 Normal 0.0-0.2 Liver Profile 09/08/2020 [facility] nter [address] [place] [address] [phone] Ast/Sgot 16 U/L Normal 7-37 Alt/SGPT 21 U/L Normal 12-78 Alkaline Phosphatase 117 U/L Normal 45-117 Bilirubin,Total 0.7 mg/dL Normal 0.2-1.0 Bilirubin,Direct 0.2 mg/dL Normal 0.0-0.2 Total Protein 6.7 GM/DL Normal 6.4-8.2 Albumin 3.5 GM/DL Normal 3.2-5.2 Albumin/Globulin Ratio 1.1 Normal Laboratory test finding 09/08/2020 [facility] [address] [place] [address] [phone] Lipase 78 U/L Normal 73-393 Lactic Acid Sepsis Protocol 1.2 mmol/L Normal 0.4-2.0 8 CBC With Auto Diff 08/13/2020 [facility] [address] [place] [address] [phone] WBC # Bld Auto 8.4 10*3/uL Normal 4.45-10.71 9 RBC # Bld Auto 5.36 10*6/uL Normal [...] diff Bld NO Laboratory test finding 08/13/[address] [address] [phone] Esr Bld Qn Westrgrn 1 [facility] Normal 0-20 Comprehensive Metabolic Prof 08/13/[address] [address] [phone] BUN SerPl-mCnc 6 mg/dL Low 9-23 Sodium [...] g/dL Normal 5.7-8.2 Laboratory test finding 08/13/[address] [address] [phone] CRP SerPl-mCnc Less Than 2.9 Normal 0.0-5.0 VZV IgG Ser-aCnc 1888.00 [facility] 10 VZV IgM Ser-aCnc <=0.90 <=0.90 11 1 THERAPUTIC HUMAN INR VALUES INDICATIONS NORMAL RANGES PROPHYLAXIS/TREATMENT OF: VENOUS THROMBOSIS 2.0-3.0 PULMONARY EMBOLISM 2.0-3.0 PREVENTION OF SYSTEMIC EMBOLISM FROM: TISSUE HEART VALVES 2.0-3.0 ACUTE MYOCARDIAL INFARCTION 2.0-3.0 VALVULAR HEART DISEASE 2.0-3.0 ATRIAL FIBRILLATION 2.0-3.0 MECHANICAL VALVES(HIGH RISK) 2.5-3.5 RECURRENT MYOCARDIAL INFARCTION 2.5-3.5 2 Units are mL/min/1.73 m2 Chronic Kidney Disease Staging per NKF: Stage I & II GFR >=60 Normal to Mildly Decreased Stage III GFR 30-59 Moderately Decreased Stage IV GFR 15-29 Severely Decreased Stage V GFR <15 Very Little GFR Left ESRD GFR <15 on MD PHYSICIAN DERMATOLOGIST 3 THE CEA ASSAY IS PERFORMED O N THE luxustravel.esR BY CHEMILUMINESCENCE AND SHOULD NOT BE COMPARED INTERCHANGEABLY WITH OTHER METHODS. IT SHOULD NOT BE USED ALONE A SCREENING TEST OR DIAGNOSIS FOR THE PRESENCE OR ABSENCE OF MALIGNANT DISEASE. PREDICTIONS OF DISEASE RECURRENCE SHOULD NOT BE BASED SOLELY ON VALUES OBTAINED FROM SERIAL PATIENT SERUM VALUES. 4 Negative results do not prec lude influenza or RSV virus infection and should not be used as the sole basis for treatment or other patient management decisions. 5 Negative results do not prec lude influenza or RSV virus infection and should not be used as the sole basis for treatment or other patient management decisions. 6 Negative results do not prec lude influenza or RSV virus infection and should not be used as the sole basis for treatment or other patient management decisions. 7 A false negative result may occur if [...] pathogens. DISCLAIMER: Testing was performed using the [employer] SARS-CoV-2 test. This test was developed and its performance characteristics determined by [employer]. This test has not been FDA cleared [...] the authorization is terminated or revoked sooner. 8 Y/N query for Sepsis Lactate Rule: Y 9 HEAD AND FACIAL NUMBNESS 10 Index Interpre tation --------- <135.00 Negative - [...] Screen, ACIF. THIS TEST WAS PERFORMED AT: [id number] [address] ISABELLA BROWNE MD 11 < or = 0.90 Negative 0.91 - [...] more weeks. THIS TEST WAS PERFORMED AT: [facility] [address] [place] [address] SILVIA CORTEZ MD,PHD Procedures Date Code Description Status 10/07/2020 [id number] Diabetic Retinal Eye Exam Comple jennifer 10/05/2020 36677 Office/Outpatient Established Mo d MDM 30-39 Min Completed 10/03/2020 [id number] Diabetic Retinal Eye Exam Comple jennifer 08/18/2020 34468 Office/Outpatient Established Lo w MDM 20-29 Min Completed 08/01/2020 06891 Office/Outpatient Established Lo w MDM 20-29 Min Completed 06/13/2020 59509 Office/Outpatient Established SF MDM 10-19 Min Completed Medical Devices Description No Information Available Encounters Type Date Location Provider Dx Diagnosis 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, 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 * 12/06/2020 11:40 am - Rashaun Morales MD at [facility] 10/05/2020 - Rashaun Morales MD* [...] SIDE OF FACE Patient Notified 10/11/2020 [address] [place] [address] [phone] Sudhakar Gonsalves MD EMELY CONSULT FOR SCREENING EGD DX: ALISA OGDEN GERD AND DYSPHAGIA [facility] [address] [facility], [place] [address] [phone] Girma Auguste MD CONSULT FOR SCREENING EGD Patient Notifi ed 09/15/2020 [address] [facility] [address] [phone]
--- OUTSIDE RECORDS SUMMARY | 2021-01-05 11:23 | CCD ---
Author Author [facility] Organization [facility] Address Unknown Phone Unavailable Care Team Providers Care Acute Care Registered Nurse Name Role Phone GAYAM, SINDHURI RESIDENT Unavailable Unavailable GAYAM, SINDHURI RESIDENT Unavailable Unavailable GAYAM, SINDHURI RESIDENT Unavailable Unavailable GAYAM, SINDHURI RESIDENT Unavailable Unavailable GAYAM, SINDHURI RESIDENT Unavailable Unavailable GAYAM, SINDHURI RESIDENT Unavailable Unavailable GAYAM, SINDHURI RESIDENT Unavailable Unavailable RAF Asher MD Unavailable Unavailable RAF Asher MD Unavailable Unavailable RAF Asher MD Unavailable Unavailable RAF Asher MD Unavailable Unavailable RAF Asher MD Unavailable Unavailable RAF Asher MD Unavailable Unavailable AFSANEH, S TERRIE Unavailable Unavailable Elmira Lynch MD Unavailable Unavailable Elmira Lynch MD Unavailable Unavailable Elmira Lynch MD Unavailable Unavailable Randa GRACE MD Unavailable Unavailable Randa GRACE MD Unavailable Unavailable Randa GRACE MD Unavailable Unavailable Randa GRACE MD Unavailable Unavailable Jamie Morales MD Unavailable Unavailable Jamie Morales MD Unavailable Unavailable Jamie Morales MD Unavailable Unavailable Jamie Morales MD Unavailable Unavailable Jamie Morales MD Unavailable Unavailable Jamie Morales MD Unavailable Unavailable Jamie Morales MD Unavailable Unavailable Jamie Morales MD Unavailable Unavailable HarrisburgJamie MD Unavailable Unavailable AndrewJamie MD Unavailable Unavailable AndrewJamie MD Unavailable Unavailable HarrisburgJamie MD Unavailable Unavailable AndrewJamie MD Unavailable Unavailable AndrewJamie MD Unavailable Unavailable HarrisburgJamie MD Unavailable Unavailable HarrisburgJamie MD Unavailable Unavailable HarrisburgJamie MD Unavailable Unavailable AndrewJamie MD Unavailable Unavailable AndrewJamie MD Unavailable Unavailable HarrisburgJamie MD Unavailable Unavailable HarrisburgJamie MD Unavailable Unavailable AndrewJamie MD Unavailable Unavailable AndrewJamie MD Unavailable Unavailable AndrewJamie MD Unavailable Unavailable HarrisburgJamie MD Unavailable Unavailable Harris[place]Jamie MD Unavailable Unavailable HarrisburgJamie MD Unavailable Unavailable AndrewJamie MD Unavailable Unavailable AndrewJamie MD Unavailable Unavailable HarrisburgJamie MD Unavailable Unavailable HarrisburgJamie MD Unavailable Unavailable HarrisburgJamie MD Unavailable Unavailable HarrisburgJamie MD Unavailable Unavailable HarrisburgJamie MD Unavailable Unavailable HarrisburgJamie MD Unavailable Unavailable HarrisburgJamie MD Unavailable Unavailable HarrisburgJamei MD Unavailable Unavailable AndrewJamie MD Unavailable Unavailable HarrisburgJamie MD Unavailable Unavailable AndrewJamie MD Unavailable Unavailable AndrewJamie MD Unavailable Unavailable HarrisburgJamie MD Unavailable Unavailable AndrewJamie MD Unavailable Unavailable AndrewJamie MD Unavailable Unavailable HarrisburgJamie MD Unavailable Unavailable AndrewJamie MD Unavailable Unavailable [place]Jamie MD Unavailable Unavailable HarrisburgJamie MD Unavailable Unavailable AndrewJamie MD Unavailable Unavailable AndrewJamie MD Unavailable Unavailable HarrisburgJamie MD Unavailable Unavailable Harris[place]Jamie MD Unavailable Unavailable HarrisburgJamie MD Unavailable Unavailable AndrewJamie MD Unavailable Unavailable AndrewJamie MD Unavailable Unavailable Harris[place]Jamie MD Unavailable Unavailable AndrewJamie MD Unavailable Unavailable HarrisburgJamie MD Unavailable Unavailable HarrisburgJamie MD Unavailable Unavailable AndrewJamie MD Unavailable Unavailable AndrewJamie MD Unavailable Unavailable AndrewJamie MD Unavailable Unavailable AndrewJamie MD Unavailable Unavailable AndrewJamie MD Unavailable Unavailable [place], F Rodney MD Unavailable Unavailable HarrisburgJamie MD Unavailable Unavailable AndrewJamie MD Unavailable Unavailable HarrisburgJamie MD Unavailable Unavailable AndrewJamie MD Unavailable Unavailable [place]Jamie MD Unavailable Unavailable AndrewJamie MD Unavailable Unavailable AndrewJamie MD Unavailable Unavailable [place]Jamie MD Unavailable Unavailable [place]Jamie MD Unavailable Unavailable [place]Jamie MD Unavailable Unavailable AndrewJamie MD Unavailable Unavailable [place]Jamie MD Unavailable Unavailable AndrewJamie MD Unavailable Unavailable [place]Jamie MD Unavailable Unavailable [place]Jamie MD Unavailable Unavailable [place]Jamie MD Unavailable Unavailable AndrewJamie MD Unavailable Unavailable [place]Jamie MD Unavailable Unavailable Harris[place]Jamie MD Unavailable Unavailable AndrewJamie MD Unavailable Unavailable HarrisburgJamie figueroa MD Unavailable Unavailable Connelly, Patrick Unavailable Any BRAN MD Unavailable Unavailable Any BRAN MD Unavailable Unavailable Any BRAN MD Unavailable Unavailable Any BRAN MD Unavailable Unavailable Any BRAN MD Unavailable Unavailable Any BRAN MD Unavailable Unavailable Any BRAN MD Unavailable Unavailable Any BRAN MD Unavailable Unavailable Any BRAN MD Unavailable Unavailable Any BRAN MD Unavailable Unavailable Any BRAN MD Unavailable Unavailable Any BRAN MD Unavailable Unavailable Any BRAN MD Unavailable Unavailable Any BRAN MD Unavailable Unavailable Any BRAN MD Unavailable Unavailable Any BRAN MD Unavailable Unavailable Any BRAN MD Unavailable Unavailable Any BRAN MD Unavailable Unavailable Any BRAN MD Unavailable Unavailable Mary Beth Martínez MD Unavailable Unavailable TanyaMary Beth MD Unavailable Unavailable TanyaMary Beth peñaloza MD Unavailable Unavailable TanyaMary Beth peñaloza MD Unavailable Unavailable TanyaMary Beth MD Unavailable Unavailable TanyaMary Beth MD Unavailable Unavailable TanyaMary Beth MD Unavailable Unavailable TanyaMary Beth MD Unavailable Unavailable TanyaMary Beth MD Unavailable Unavailable TanyaMary Beth MD Unavailable Unavailable Tanya, R Adali DRAPER Unavailable Unavailable Tanya, R Adali DRAPER Unavailable Unavailable PARSHALL, A RUSH MD Unavailable Unavailable PARSHALL, A RUSH MD Unavailable Unavailable PARSHALL, A RUSH MD Unavailable Unavailable PARSHALL, A RUSH MD Unavailable Unavailable PARSHALL, A RUSH MD Unavailable Unavailable PARSHALL, A RUSH MD Unavailable Unavailable PARSHALL, A RUSH MD Unavailable Unavailable PARSHALL, A RUSH MD Unavailable Unavailable PARSHALL, A RUSH MD Unavailable Unavailable PARSHALL, A RUSH MD Unavailable Unavailable PARSHALL, A RUSH MD Unavailable Unavailable PARSHALL, A RUSH MD Unavailable Unavailable PARSHALL, A RUSH MD Unavailable Unavailable PARSHALL, A RUSH MD Unavailable Unavailable PARSHALL, A URSH MD Unavailable Unavailable PARSHALL, A RUSH MD Unavailable Unavailable PARSHALL, A RUSH MD Unavailable Unavailable PARSHALL, A RUSH MD Unavailable Unavailable PARSHALL, A RUSH MD Unavailable Unavailable PARSHALL, A RUSH MD Unavailable Unavailable PARSHALL, A RUSH MD Unavailable Unavailable PARSHALL, A RUSH MD Unavailable Unavailable PARSHALL, A RUSH MD Unavailable Unavailable PARSHALL, A RUSH MD Unavailable Unavailable PARSHALL, A RUSH MD Unavailable Unavailable PARSHALL, A RUSH MD Unavailable Unavailable PARSHALL, A RUSH MD Unavailable Unavailable PARSHALL, A RUSH MD Unavailable Unavailable PARSHALL, A RUSH MD Unavailable Unavailable PARSHALL, A RUSH MD Unavailable Unavailable PARSHALL, A RUSH MD Unavailable Unavailable PARSHALL, A RUSH MD Unavailable Unavailable PICKERAL JR, J ADELIA PA-C Unavailable Unavailable PICKERAL JR, J ADELIA PA-C Unavailable Unavailable PICKERAL JR, J ADELIA PA-C Unavailable Unavailable PICKERAL JR, J ADELIA PA-C Unavailable Unavailable PICKERAL JR, J ADELIA PA-C Unavailable Unavailable PICKERAL JR, J ADELIA PA-C Unavailable Unavailable PICKERAL JR, J ADELIA PA-C Unavailable Unavailable PICKERAL JR, J ADELIA PA-C Unavailable Unavailable PICKERAL JR, J DAELIA PA-C Unavailable Unavailable PICKERAL JR, J ADELIA PA-C Unavailable Unavailable PICKERAL JR, J ADELIA PA-C Unavailable Unavailable PICKERAL JR, J ADELIA PA-C Unavailable Unavailable PICKERAL JR, J ADELIA PA-C Unavailable Unavailable PICKERAL JR, J ADELIA PA-C Unavailable Unavailable PICKERAL JR, J ADELIA PA-C Unavailable Unavailable PICKERAL JR, J ADELIA PA-C Unavailable Unavailable PICKERAL JR, J ADELIA PA-C Unavailable Unavailable PICKERAL JR, J ADELIA PA-C Unavailable Unavailable PICKERAL JR, J ADELIA PA-C Unavailable Unavailable PICKERAL JR, J ADELIA PA-C Unavailable Unavailable PICKERAL JR, J ADELIA PA-C Unavailable Unavailable PICKERAL JR, J ADELIA PA-C Unavailable Unavailable PICKERAL JR, J ADELIA PA-C Unavailable Unavailable PICKERAL JR, J ADELIA PA-C Unavailable Unavailable PICKERAL JR, J ADELIA PA-C Unavailable Unavailable PICKERAL JR, J ADELIA PA-C Unavailable Unavailable PICKERAL JR, J ADELIA PA-C Unavailable Unavailable MIX, WAYNE DRAPER Unavailable Unavailable MIX, WAYNE DRAPER Unavailable Unavailable MIX, WAYNE DRAPER Unavailable Unavailable MIX, WAYNE DRAPER Unavailable Unavailable MIX, WAYNE DRAPER Unavailable Unavailable MIX, WAYNE DRAPER Unavailable Unavailable MIX, WAYNE DRAPER Unavailable Unavailable MIX, WAYNE DRAPER Unavailable Unavailable MIX, WAYNE DRAPER Unavailable Unavailable MIX, WAYNE DRAPER Unavailable Unavailable MIX, WAYNE DRAPER Unavailable Unavailable MIX, WAYNE DRAPER Unavailable Unavailable MIX, WAYNE DRAPER Unavailable Unavailable MIX, WAYNE DRAPER Unavailable Unavailable MIX, WAYNE DRAPER Unavailable Unavailable MIX, WAYNE DRAPER Unavailable Unavailable MIX, WAYNE DRAPER Unavailable Unavailable MIX, WAYNE DRAPER Unavailable Unavailable MIX, WAYNE DRAPER Unavailable Unavailable MIX, WAYNE DRAPER Unavailable Unavailable MIX, WAYNE DRAPER Unavailable Unavailable MIX, WAYNE DRAPER Unavailable Unavailable MIX, WAYNE DRAPER Unavailable Unavailable MIX, WAYNE DRAPER Unavailable Unavailable MIX, WAYNE DRAPER Unavailable Unavailable MIX, WAYNE DRAPER Unavailable Unavailable MIX, WAYNE DRAPER Unavailable Unavailable MIX, WAYNE DRAPER Unavailable Unavailable MIX, WAYNE DRAPER Unavailable Unavailable MIX, WAYNE DRAPER Unavailable Unavailable MIX, WAYNE DRAPER Unavailable Unavailable MIX, WAYNE DRAPER Unavailable Unavailable MIX, WAYNE DRAPER Unavailable Unavailable MIX, WAYNE DRAPER Unavailable Unavailable MIX, WAYNE DRAPER Unavailable Unavailable MIX, WAYNE DRAPER Unavailable Unavailable MIX, WAYNE DRAPER Unavailable Unavailable MIX, WAYNE DRAPER Unavailable Unavailable CONNELLYPATRICK Unavailable Unavailable Ordaz, A Jonas DRAPER Unavailable Unavailable Ordaz, A Jonas Unavailable Unavailable Ordaz, A Jonas Unavailable Unavailable Ordaz, A Jonas Unavailable Unavailable Ordaz, A Jonas Unavailable Unavailable Ordaz, A Jonas MD Unavailable Unavailable Ordaz, A Jonas MD Unavailable Unavailable Ordaz, A Jonas MD Unavailable Unavailable Ordaz, A Jonas MD Unavailable Unavailable Ordaz, A Jonas MD Unavailable Unavailable Ordaz, A Jonas MD Unavailable Unavailable Ordaz, A Jonas MD Unavailable Unavailable Ordaz, A Jonas MD Unavailable Unavailable Ordaz, A Jonas MD Unavailable Unavailable Ordaz, A Jonas MD Unavailable Unavailable Ordaz, A Jonas MD Unavailable Unavailable Ordaz, A Jonas MD Unavailable Unavailable Ordaz, A Jonas MD Unavailable Unavailable Ordaz, A Jonas MD Unavailable Unavailable Ordaz, A Jonas MD Unavailable Unavailable Ordaz, A Jonas MD Unavailable Unavailable Ordaz, A Jonas MD Unavailable Unavailable Ordaz, A Jonas MD Unavailable Unavailable Ordaz, A Jonas MD Unavailable Unavailable Ordaz, A Jonas MD Unavailable Unavailable Ordaz, A Jonas MD Unavailable Unavailable Ordaz, A Jonas MD Unavailable Unavailable Ordaz, A Jonas MD Unavailable Unavailable Ordaz, A Jonas MD Unavailable Unavailable Ordaz, A Jonas MD Unavailable Unavailable Ordaz, A Jonas MD Unavailable Unavailable Ordaz, A Jonas MD Unavailable Unavailable Ordaz, A Jonas MD Unavailable Unavailable Ordaz, A Jonas MD Unavailable Unavailable Ordaz, A Jonas MD Unavailable Unavailable Ordaz, A Jonas MD Unavailable Unavailable Ordaz, A Jonas MD Unavailable Unavailable Ordaz, A Jonas MD Unavailable Unavailable Ordaz, A Jonas MD Unavailable Unavailable Ordaz, A Jonas MD Unavailable Unavailable Ordaz, A Jonas MD Unavailable Unavailable Ordaz, A Jonas MD Unavailable Unavailable Ordaz, A Jonas MD Unavailable Unavailable Ordaz, A Jonas MD Unavailable Unavailable Ordaz, A Jonas MD Unavailable Unavailable Ordaz, A Jonas MD Unavailable Unavailable Ordaz, A Jonas MD Unavailable Unavailable Ordaz, A Jonas MD Unavailable Unavailable Ordaz, A Jonas MD Unavailable Unavailable Ordaz, A Jonas MD Unavailable Unavailable Ordaz, A Jonas MD Unavailable Unavailable Ordaz, A Jonas MD Unavailable Unavailable Ordaz, A Jonas MD Unavailable Unavailable Ordaz, A Jonas MD Unavailable Unavailable Ordaz, A Jonas MD Unavailable Unavailable Ordaz, A Jonas MD Unavailable Unavailable Ordaz, A Jonas MD Unavailable Unavailable Ordaz, A Jonas MD Unavailable Unavailable Ordaz, A Jonas MD Unavailable Unavailable Ordaz, A Jonas MD Unavailable Unavailable Ordaz, A Jonas MD Unavailable Unavailable Ordaz, A Jonas MD Unavailable Unavailable Ordaz, A Jonas MD Unavailable Unavailable Ordaz, A Jonas MD Unavailable Unavailable Ordaz, A Jonas MD Unavailable Unavailable Ordaz, A Jonas MD Unavailable Unavailable Ordaz, A Jonas MD Unavailable Unavailable Ordaz, A Jonas MD Unavailable Unavailable Ordaz, A Jonas MD Unavailable Unavailable Ordaz, A Jonas MD Unavailable Unavailable Ordaz, A Jonas MD Unavailable Unavailable Ordaz, A Jonas MD Unavailable Unavailable Ordaz, A Jonas MD Unavailable Unavailable Ordaz, A Jonas MD Unavailable Unavailable Ordaz, A Jonas MD Unavailable Unavailable Ordaz, A Jonas MD Unavailable Unavailable Ordaz, A Jonas MD Unavailable Unavailable Ordaz, A Jonas MD Unavailable Unavailable Ordaz, A Jonas MD Unavailable Unavailable Ordaz, A Jonas MD Unavailable Unavailable Ordaz, A Jonas MD Unavailable Unavailable Ordaz, A Jonas MD Unavailable Unavailable Ordaz, A Jonas MD Unavailable Unavailable Ordaz, A Jonas DRAPER Unavailable Unavailable Babu, Kenji MD Unavailable Unavailable Babu, Kenji MD Unavailable Unavailable Babu, Kenji MD Unavailable Unavailable Babu, Kenji MD Unavailable Unavailable Babu, Kenji MD Unavailable Unavailable Babu, Kenji MD Unavailable Unavailable Babu, Kenji MD Unavailable Unavailable Babu, Kenji MD Unavailable Unavailable Babu, Kenji MD Unavailable Unavailable Babu, Kenji MD Unavailable Unavailable Babu, Kenji MD Unavailable Unavailable Babu, Kenji MD Unavailable Unavailable Babu, Kenji MD Unavailable Unavailable Babu, Kenji MD Unavailable Unavailable Babu, Kenji MD Unavailable Unavailable Babu, Kenji MD Unavailable Unavailable Babu, Kenji MD Unavailable Unavailable Babu, Kenji MD Unavailable Unavailable Babu, Kenji MD Unavailable Unavailable Neeta Somers Terrie Unavailable Afsaneh S Terrie Unavailable Neeta CARDOZA MD Unavailable Unavailable Neeta CARDOZA MD Unavailable Unavailable Neeta CARDOZA MD Unavailable Unavailable SONY S RISEWA DRAPER Unavailable Unavailable CARDOZA, S RISLAMINA MD Unavailable Unavailable CARDOZA, S RISEWA MD Unavailable Unavailable Re-disclosure Warning The records that you are about to access may contain information from federally-assisted alcohol or drug abuse programs. If such information is present, then the following federally mandated warning applies: This information has been disclosed to you from records protected by federal confidentiality rules (42 CFR part 2). The federal rules prohibit you from making any further disclosure of this information unless further disclosure is expressly permitted by the written consent of the person to whom it pertains or as otherwise permitted by 42 CFR part 2. A general authorization for the release of medical or other information is NOT sufficient for this purpose. The Federal rules restrict any use of the information to criminally investigate or prosecute any alcohol or drug abuse patient.The records that you are about to access may contain highly sensitive health information, the redisclosure of which is protected by Article 27-F of the [facility] Public Health law. If you continue you may have access to information: Regarding HIV / AIDS; Provided by facilities licensed or operated by the [facility] Office of Mental Health; or Provided by the [facility] Office for People With Developmental Disabilities. If such information is present, then the following [facility] mandated warning applies: This information has been disclosed to you from confidential records which are protected by state law. State law prohibits you from making any further disclosure of this information without the specific written consent of the person to whom it pertains, or as otherwise permitted by law. Any unauthorized further disclosure in violation of state law may result in a fine or care home sentence or both. A general authorization for the release of medical or other information is NOT sufficient authorization for further disc losure. Allergies and Adverse Reactions Type Description Substance Reaction Status Data Source(s ) Propensity to adverse reactions NO KNOWN ALLERGIES NO KNOWN ALLERGIES [facility] Encounters Encounter Providers Location Date Indications Data Source(s ) Outpatient 01/20/2021 12:00:00 AM [facility] Outpatient Attender: Jonas Ordaz MD 01/05/2021 12:00:00 AM [facility] Outpatient Attender: WAYNE TANG MDReferrer: Jonas Ordaz MD [id number] 11/22/2020 12:00:00 AM EDT - 11/22/2020 01:05:06 PM EDT [facility] follow Outpatient Attender: WAYNE TANG MDReferrer: ROBERTO Asher MD [id number] 11/09/2020 12:00:00 AM EDT - 11/09/2020 04:54:22 PM EDT [facility] follow Outpatient Attender: WAYNE TANG MD 11/04/2020 12:00:00 AM T [facility] Outpatient Attender: WAYNE TANG MD 10/26/2020 12:00:00 AM T [facility] Outpatient Attender: Jonas Ordaz MD [id number] 10/25/2020 12:00 :00 AM EDT Secondary malignant neoplasm of brain [facility] Secondary malignant neoplasm of brain Outpatient Attender: Terrie Sainiender: TERRIE STALEY [id number] 10/21/2020 12:00:00 AM EDT - 10/21/2020 02:55:26 PM EDT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, left eye [facility]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, left eye Outpatient Attender: Patrick ConnellyAttender: PATRICK CONNELLY [id number] [facility] 10/14/2020 12:00:00 AM EDT - 10/14/2020 02:02:52 PM EDT [facility] Outpatient Attender: Patrick ConnellyAttender: PATRICK CONNELLY [id number] [facility] 10/07/2020 12:00:00 AM EDT - 10/07/2020 11:07:53 AM EDT [facility] Outpatient Attender: Rashaun Sosaall 0 10/05/2020 09:40:00 AM EDT [facility] ([facility] ) Outpatient Attender: Patrick ConnellyAttender: PATRICK CONNELLY A-XXH [facility] 10/03/2020 12:00:00 AM EDT - 10/03/2020 03:19:12 PM EDT [facility] Emergency Attender: RHINA [facility]ARDOZA [id number]/01 10:18:00 PM EDT - 10/02/2020 03:47:00 AM EDT cancer pt, vision issues, numbness on le ft side of face [facility] cancer pt, vision issues, numbness on le ft side of face Patient discharged. Outpatient [id number] [facility]: Jonas Ordaz MDAdmi tter: Jonas Ordaz MDReferrer: WAYNE TANG MD [id number] 09/21/2020 05:35:29 AM EDT - 09/21/2020 10:40:00 AM EDT Secondary malignant neoplasm of brain [facility] Secondary malignant neoplasm of brain Patient discharged. [facility] Kenji Mills MD 09/16/2020 12:00:00 AM T [facility] Inpatient Attender: ROBERTO Asher MDAdmi tter: PATRICIA GRACE MDReferrer: ROBERTO Asher MD 09/13/2020 12:00:00 AM EDT [facility] Inpatient Attender: GILDA BLAKE RES IDENTAttender: ROBERTO Asher MDAttender: PATRICIA GRACE MDAttender: Anupa Tanya MDAttender: RHINA CARDOZA MDAdmitter: PATRICIA GRACE MDReferrer: PATRICIA GRACE MDConsultant: LING BRAN MD [id number] 09/08/2020 12:00:00 AM EDT - 09/15/2020 06:31:00 PM EDT [facility] Patient discharged. Outpatient Attender: ADELIA Carty 0 08/18/2020 08:20:00 AM EDT [facility] ([facility] ) Emergency Attender: RUSH COLLINS MD 08/13 09:05:00 AM EDT - 08/13/2020 11:29:00 AM EDT [facility] FACIAL [facility] Patient discharged. Emergency Attender: Elmira [facility] MD 08/12 09:15:00 PM EDT - 08/12/2020 11:39:00 PM EDT [facility]ACE [facility]BN[facility] FACE NUMBNESS Patient discharged. Outpatient Attender: ADELIA Carty 0 08/01/2020 09:40:00 AM EDT [facility] ([facility] ) Outpatient Attender: ADELIA Carty 0 06/13/2020 03:20:00 PM EDT [facility] ([facility] ) Outpatient Attender: Rashaun Carty 0 11/25/2019 08:40:00 AM EDT [facility] ([facility] ) Immunizations Vaccine Date Status Description Data Source(s) 06/14/2020 12:00:00 AM EDT completed <td I D="[id number]">Pfizer SARS-CoV-2 Vaccination</td><td>06/14/2020, 05/24/2020</td><td></td> [facility] COVID-19 VACCINE Pfizer 06/14/2020 12:00:00 AM EDT completed [employer] Vaccine Series Complete: YESThis Data wa s Submitted to [facility] Via [employer]. 05/24/2020 12:00:00 AM EST completed <td I D="[id number]">Pfizer SARS-CoV-2 Vaccination</td><td>06/14/2020, 05/24/2020</td><td></td> [facility] COVID-19 VACCINE Pfizer 05/24/2020 12:00:00 AM EST completed [employer] Vaccine Series Complete: NOThis Data was Submitted to [facility] Via [employer]. INFLUENZA VIRUS VACCINE QUADRIVALENT 2019- (6 MOS AN D UP) 12/14/2019 12:00:00 AM EDT completed [facility] Medications Medication Brand Name Start Date Product Form Dose Route Admi nistrative Instructions Pharmacy Instructions Status Indications Reaction Description Data Source(s) Ondansetron 4 MG Disintegrating Oral Tablet ONDANSETRON 12/31/2020 12:00:00 AM EDT tablet,disintegrating 120 DISSOLVE O NE TABLET ON TONGUE EVERY 6 HOURS NEEDED FOR NAUSEA MAXIMUM DAILY DOSE = 4 DISSOLVE ONE TABLET ON TONGUE EVERY 6 HOURS NEEDED FOR NAUSEA MAXIMUM DAILY DOSE = 4 SOLD: 01/01/2021 [facility] 100,000 unit/mL 12/27/2020 12:00:00 AM EDT suspension 200 USE 5ML BY MOUTH TO SWISH AND SWALLOW FOUR TIMES A DAY DIRECTED USE 5ML BY MOUTH TO SWISH AND SWALLOW FOUR TIMES A DAY DIRECTED SOLD: 12/28/2020 [facility] 2 mg 12/27/2020 12:00:00 AM EDT tablet 30 TAKE ONE TABLET BY MOUTH EVERY DAY TAKE ONE TABLET BY MOUTH EVERY DAY SOLD: 12/28/2020 [facility] 4 mg 12/26/2020 12:00:00 AM EDT tablet 30 TAKE ONE TABLET BY MOUTH EVERY DAY WITH FOOD TAKE ONE TABLET BY MOUTH EVERY DAY WITH FOOD SOLD: 12/27/2020 [facility] olanzapine 5 MG Oral Tablet OLANZAPINE 12/09/2020 12:00:00 AM EDT tabl et 30 TAKE ONE TABLET BY MOUTH EVERY EVENING TAKE ONE TABLET BY MOUTH EVERY EVENING SOLD: 12/12/2020 [facility] 1 gram 12/08/2020 12:00:00 AM EDT tablet 20 TAKE ONE TABLET BY MOUTH TWICE A DAY TAKE ONE TABLET BY MOUTH TWICE A DAY SOLD: 12/09/2020 [facility] 20 mEq/15 mL 12/06/2020 12:00:00 AM EDT liquid 420 TAKE 1 TABLESPOONFUL (15 ML) TWO TIMES A DAY TAKE 1 TABLESPOONFUL (15 ML) TWO TIMES A DAY SOLD: 12/06/2020 [facility] 4 mg 12/06/2020 12:00:00 AM EDT tablet 5 TAKE ONE TABLET BY MOUTH EVERY 6 TO 8 HOURS NEEDED FOR NAUSEA VOMITING TAKE ONE TABLET BY MOUTH EVERY 6 TO 8 HOURS NEEDED FOR NAUSEA VOMITING SOLD: 12/06/2020 [facility] 2 mg/mL 12/02/2020 12:00:00 AM EDT concentrate 30 TAKE 0.25ML BY MOUTH FOUR TIMES A DAY NEEDED FOR ANXIETY / AGITATION MAXIMUM DAILY DOSE = 1ML TAKE 0.25ML BY MOUTH FOUR TIMES A DAY NEEDED FOR ANXIETY / AGITATION MAXIMUM DAILY DOSE = 1ML SOLD: 12/02/2020 [facility] 50 mg 12/01/2020 12:00:00 AM EDT tablet 30 TAKE ONE TABLET BY MOUTH EVERY DAY TAKE ONE TABLET BY MOUTH EVERY DAY SOLD: 12/02/2020 [facility] 50 mg 12/01/2020 12:00:00 AM EDT tablet 30 TAKE ONE TABLET BY MOUTH EVERY DAY TAKE ONE TABLET BY MOUTH EVERY DAY SOLD: 01/01/2021 [facility] 20 mg 11/24/2020 12:00:00 AM EDT capsule,delayed release (DR/EC) 30 TAKE ONE CAPSULE BY MOUTH EVERY DAY USE WHILE TAKING DEXAMETHASONE TO PREVENT ASSOCIATED HEARTBURN TAKE ONE CAPSULE BY MOUTH EVERY DAY USE WHILE TAKING DEXAMETHASONE TO PREVENT ASSOCIATED HEARTBURN SOLD: 12/24/2020 [facility] 4 mg 11/24/2020 12:00:00 AM EDT tablet 30 TAKE ONE TABLET BY MOUTH EVERY DAY TAKE ONE TABLET BY MOUTH EVERY DAY SOLD: 11/24/2020 [facility] 20 mg 11/24/2020 12:00:00 AM EDT capsule,delayed release (DR/EC) 30 TAKE ONE CAPSULE BY MOUTH EVERY DAY USE WHILE TAKING DEXAMETHASONE TO PREVENT ASSOCIATED HEARTBURN TAKE ONE CAPSULE BY MOUTH EVERY DAY USE WHILE TAKING DEXAMETHASONE TO PREVENT ASSOCIATED HEARTBURN SOLD: 11/24/2020 [facility] 2 mg/mL 11/24/2020 12:00:00 AM EDT concentrate 60 GIVE 0.5-1 ML BY MOUTH OR UNDER THE TONGUE EVERY 4 HOURS NEEDED MAXIMUM DAILY DOSE = 6 ML GIVE 0.5-1 ML BY MOUTH OR UNDER THE TONGUE EVERY 4 HOURS NEEDED MAXIMUM DAILY DOSE = 6 ML SOLD: 11/24/2020 [facility] 50 mcg/hr 11/23/2020 12:00:00 AM EDT patch 72 hour 10 APPLY 1 PATCH EVERY 3 DAYS MAXIMUM DAILY DOSE = 1 EVERY 3 DAYS APPLY 1 PATCH EVERY 3 DAYS MAXIMUM DAILY DOSE = 1 EVERY 3 DAYS SOLD: 11/23/2020 [facility] 10 mg 11/15/2020 12:00:00 AM EDT tablet 30 TAKE ONE TABLET BY MOUTH AT BEDTIME NEEDED FOR INSOMNIA MAXIMUM DAILY DOSE = 1 TAKE ONE TABLET BY MOUTH AT BEDTIME NEEDED FOR INSOMNIA MAXIMUM DAILY DOSE = 1 SOLD: 11/15/2020 [facility] 10 mg 11/10/2020 12:00:00 AM EDT tablet 5 TAKE ONE TABLET BY MOUTH AT BEDTIME FOR INSOMNIA MAXIMUM DAILY DOSE = 1 TAKE ONE TABLET BY MOUTH AT BEDTIME FOR INSOMNIA MAXIMUM DAILY DOSE = 1 SOLD: 11/10/2020 [facility] Oxycodone Hydrochloride 20 MG/ML Oral Solution OXYCODONE HCL 11/08/2020 12:00:00 AM EDT concentrate 30 GIVE 0.5ML BY MO UTH OR UNDER THE TONGUE EVERY 4 HOURS NEEDED FOR PAIN MAXIMUM DAILY DOSE = 3ML GIVE 0.5ML BY MOUTH OR UNDER THE TONGUE EVERY 4 HOURS NEEDED FOR PAIN MAXIMUM DAILY DOSE = 3ML SOLD: 11/08/2020 [facility] 50 mcg/hr 11/08/2020 12:00:00 AM EDT patch 72 hour 5 APPLY 1 PATCH TRANSDERNAL CHANGE EVERY 3 DAYS MAXIMUM DAILY DOSE = 1 EVERY 3 DAYS APPLY 1 PATCH TRANSDERNAL CHANGE EVERY 3 DAYS MAXIMUM DAILY DOSE = 1 EVERY 3 DAYS SOLD: 11/10/2020 [facility] Ondansetron 4 MG Disintegrating Oral Tablet ONDANSETRON 11/03/2020 12:00:00 AM EDT tablet,disintegrating 30 DISSOLVE T WO TABLETS ON TONGUE EVERY 12 HOURS NEEDED FOR NAUSEA DISSOLVE TWO TABLETS ON TONGUE EVERY 12 HOURS NEEDED FOR NAUSEA SOLD: 12/29/2020 [facility] Ondansetron 4 MG Disintegrating Oral Tablet ONDANSETRON 11/03/2020 12:00:00 AM EDT tablet,disintegrating 30 DISSOLVE T WO TABLETS ON TONGUE EVERY 12 HOURS NEEDED FOR NAUSEA DISSOLVE TWO TABLETS ON TONGUE EVERY 12 HOURS NEEDED FOR NAUSEA SOLD: 11/15/2020 [facility] Ondansetron 4 MG Disintegrating Oral Tablet ONDANSETRON 11/03/2020 12:00:00 AM EDT tablet,disintegrating 30 DISSOLVE T WO TABLETS ON TONGUE EVERY 12 HOURS NEEDED FOR NAUSEA DISSOLVE TWO TABLETS ON TONGUE EVERY 12 HOURS NEEDED FOR NAUSEA SOLD: 11/03/2020 [facility] 10 mg 11/02/2020 12:00:00 AM EDT tablet 30 TAKE ONE TABLET BY MOUTH EVERY 6 HOURS TAKE ONE TABLET BY MOUTH EVERY 6 HOURS SOLD: 11/03/2020 [facility] 10 mg 11/02/2020 12:00:00 AM EDT tablet 30 TAKE ONE TABLET BY MOUTH EVERY 6 HOURS TAKE ONE TABLET BY MOUTH EVERY 6 HOURS SOLD: 12/24/2020 [facility] 2 mg/mL 11/02/2020 12:00:00 AM EDT concentrate 30 GIVE 0.25ML TO 0.5ML BY MOUTH OR UNDER THE TONGUE LEVERY 4 HOURS NEEDED FOR ANXIETY MAXIMUM DAILY DOSE = 3ML GIVE 0.25ML TO 0.5ML BY MOUTH OR UNDER T HE TONGUE LEVERY 4 HOURS NEEDED FOR ANXIETY MAXIMUM DAILY DOSE = 3ML SOLD: 11/02/2020 [facility] 5 mg/5 mL 10/25/2020 12:00:00 AM EDT solution 140 TAKE 5 ML BY MOUTH EVERY 6 HOURS NEEDED FOR PAIN MAXIMUM DAILY DOSE = 20 ML TAKE 5 ML BY MOUTH EVERY 6 HOURS NEEDED FOR PAIN MAXIMUM DAILY DOSE = 20 ML SOLD: 10/26/2020 [facility] 72 HR Fentanyl 0.025 MG/HR Transdermal System FENTANYL 10/25/2020 12:00:00 AM EDT patch 72 hour 5 APPLY 1 PATCH AN D CHANGE EVERY 72 HOURS MAXIMUM DAILY DOSE = 1 PATCH EVERY 72 HOURS APPLY 1 PATCH AND CHANGE EVERY 72 HOURS MAXIMUM DAILY DOSE = 1 PATCH EVERY 72 HOURS SOLD: 10/26/2020 [facility] 5 mg/gram (0.5 %) 10/21/2020 12:00:00 AM EDT ointment 3 APPLY 1/2 INCH OF OINTMENT INTO THE LEFT EYE TWO TIMES A DAY APPLY 1/2 INCH OF OINTMENT INTO THE LEFT EYE TWO TIMES A DAY SOLD: 10/24/2020 [facility] Erythromycin 0.005 MG/MG Ophthalmic Oint ment Erythromycin 5 MG/GM Ophthalmic Ointment (ROMYCIN) Erythromycin 5 MG/GM Ophthalmic Ointment (ROMYCIN) 12:00:00 AM EDT 0.5 [in_us] Left Eye active Place 0.5 inches into the left eye Two Times Daily [facility] Proparacaine hydrochloride 5 MG/ML Ophth almic Solution proparacaine (ALCAINE) 0.5 % ophthalmic solution 1 drop proparacaine (ALCAINE) 0.5 % ophthalmic solution 1 drop 10/14/2020 01:30:00 PM EDT 1 [drp] Both Eyes a ctive [facility] 5 mg/5 mL 10/13/2020 12:00:00 AM EDT solution 140 TAKE 5ML BY MOUTH EVERY 6 HOURS NEEDED FOR PAIN LEVEL 5-10 MAXIMUM DAILY DOSE = 20ML TAKE 5ML BY MOUTH EVERY 6 HOURS NEEDED FOR PAIN LEVEL 5-10 MAXIMUM DAILY DOSE = 20ML SOLD: 10/16/2020 [facility] Ondansetron 4 MG Disintegrating Oral Tablet ONDANSETRON 10/12/2020 12:00:00 AM EDT tablet,disintegrating 120 DISSOLVE O NE TABLET ON TONGUE EVERY 6 HOURS NEEDED FOR NAUSEA MAXIMUM DAILY DOSE = FOUR TABLETS DISSOLVE ONE TABLET ON TONGUE EVERY 6 HOURS NEEDED FOR NAUSEA MAXIMUM DAILY DOSE = FOUR TABLETS SOLD: 10/16/2020 [facility] 12 mcg/hr 10/11/2020 12:00:00 AM EDT patch 72 hour 5 APPLY 1 PATCH EVERY 3 DAYS MAXIMUM DAILY DOSE = 1 APPLY 1 PATCH EVERY 3 DAYS MAXIMUM DAILY DOSE = 1 SOLD: 10/11/2020 [facility] Erythromycin 0.005 MG/MG Ophthalmic Oint ment erythromycin (ROMYCIN) ophthalmic ointment 1 cm erythromycin (ROMYCIN) ophthalmic ointment 1 cm 2020 12:00:00 PM EDT 1 cm Left Eye active [facility] Epinephrine 0.01 MG/ML / Lidocaine [place] chloride 10 MG/ML Injectable Solution lidocaine-EPINEPHrine 1 %-1:[id number] injection 1 mL lidocaine-EPINEPHrine 1 %- 1:[id number] injection 1 mL 10/07/2020 10:30:00 AM EDT 1 mL Infiltrat ion active [facility] No Active Medications 10/05/2020 12:00:00 AM EDT active [facility] ([facility]) 250 mg/5 mL 10/04/2020 12:00:00 AM EDT solution 300 TAKE 10ML DOWN G-TUBE AT BEDTIME MAXIMUM DAILY DOSE = 10ML TAKE 10ML DOWN G-TUBE AT BEDTIME MAXIMUM DAILY DOSE = 10ML SOLD: 10/05/2020 [facility] 0.5 mg 10/04/2020 12:00:00 AM EDT tablet 60 TAKE ONE-HALF TABLET BY MOUTH TWICE A DAY NEEDED FOR NAUSEA AND ANXIETY AND 1 TABLET AT BEDTIME MAXIMUM DAILY DOSE = 2 TABLETS TAKE ONE-HALF TABLET BY MOUTH TWICE A DA Y NEEDED FOR NAUSEA AND ANXIETY AND 1 TABLET AT BEDTIME MAXIMUM DAILY DOSE = 2 TABLETS SOLD: 10/05/2020 [facility] 250 mg/5 mL 10/04/2020 12:00:00 AM EDT solution 300 TAKE 10ML DOWN G-TUBE AT BEDTIME MAXIMUM DAILY DOSE = 10ML TAKE 10ML DOWN G-TUBE AT BEDTIME MAXIMUM DAILY DOSE = 10ML SOLD: 12/09/2020 [facility] Phenylephrine Hydrochloride 25 MG/ML Oph thalmic Solution phenylephrine (MYDFRIN) 2.5 % ophthalmic solution 1 drop phenylephrine (MYDFRIN) 2.5 % ophthalmic solution 1 drop 10/03/2020 02:30:00 PM EDT 1 [drp] Both Eyes completed 1 drop, Both Eyes, Once, On Sat10/03/20 at 1430, For 1 dose [facility] Medication administered onsite fluorescein-benoxinate (FLURATE) 0.25-0.4 % ophthalmic solution 1 drop 10490-060-82 10/03/2020 02:30:00 PM EDT 1 [drp] Both Eyes c ompleted 1 drop, Both Eyes, Once, On Sat10/03/20 at 1430, For 1 dose [facility] Medication administered onsite Tropicamide 10 MG/ML Ophthalmic Solution tropicamide (MYDRIACYL) 1 % ophthalmic solution 1 drop tropicamide (MYDRIACYL) 1 % ophthalmic solution 1 drop 10/03/2020 02:30:00 PM EDT 1 [drp] Both Eyes completed 1 drop, Both Eyes, Once, On Sat10/03/20 at 1430, For 1 dose [facility] Medication administered onsite Ofloxacin 3 MG/ML Ophthalmic Solution Of loxacin 0.3 % Ophthalmic Solution (OCUFLOX) Ofloxacin 0.3 % Ophthalmic Solution (OCUFLOX) 10/04/19 12:00:00 AM EDT 1 [drp] Left Eye active Place 1 drop into the left eye Four times daily [facility] 0.3 % 10/03/2020 12:00:00 AM EDT drops 5 INSTILL 1 DROP IN THE LEFT EYE FOUR TIMES A DAY INSTILL 1 DROP IN THE LEFT EYE FOUR TIMES A DAY SOLD: 10/03/2020 [facility] Erythromycin 0.005 MG/MG Ophthalmic Oint ment erythromycin (ROMYCIN) ophthalmic ointment 1 cm erythromycin (ROMYCIN) ophthalmic ointment 1 cm 2020 03:15:00 AM EDT 1 cm Left Eye completed 1 cm, Left Eye, Once, On 10/02/20 at 0315, For 1 dose [facility] Medication administered onsite Tetracaine hydrochloride 5 MG/ML Ophthal marissa Solution tetracaine (PONTOCAINE) 0.5 % ophthalmic solution 1 drop tetracaine (PONTOCAINE) 0.5 % ophthalmic solution 1 drop 10/02/2020 01:30:00 AM EDT 1 [drp] Both Eyes complet ed 1 drop, Both Eyes, Once, On 10/02/20 at 0130, For 1 dose [facility] Medication administered onsite fluorescein ophthalmic strip 1 mg [id number] 10/02/2020 01:30:00 AM E DT 1 {strip} Both Eyes completed 1 mg (1 strip) , Both Eyes, Once, On 10/02/20 at 0130, For 1 dose [facility] Medication administered onsite Erythromycin 0.005 MG/MG Ophthalmic Oint ment Erythromycin 5 MG/GM Ophthalmic Ointment (ROMYCIN) Erythromycin 5 MG/GM Ophthalmic Ointment (ROMYCIN) 01/2021 12:00:00 AM EDT 0.5 [in_us] Left Eye active Place 0.5 inches into the left eye Three times daily for 10 days [facility] Ondansetron 4 MG Disintegrating Oral Tablet ONDANSETRON 09/20/2020 12:00:00 AM EDT tablet,disintegrating 9 DISSOLVE O NE TABLET ON TONGUE EVERY 4 HOURS NEEDED FOR NAUSEA DISSOLVE ONE TABLET ON TONGUE EVERY 4 HO URS NEEDED FOR NAUSEA SOLD: 09/27/2020 [facility] 5 mg/5 mL 09/20/2020 12:00:00 AM EDT solution 140 5 ML BY MOUTH EVERY 6 HOURS NEEDED FOR PAIN LEEL 5-10 MAXIMUM DAILY DOSE = 20 ML 5 ML BY MOUTH EVERY 6 HOURS NEEDED FOR PAIN LEEL 5-10 MAXIMUM DAILY DOSE = 20 ML SOLD: 09/20/2020 [facility] Acetaminophen 500 MG Oral Tablet Acetaminophen 09/19/2020 12:00:00 AM EDT ORAL completed [facility] ([facility]) Ondansetron 4 MG Disintegrating Oral Tablet Ondansetron 09/19/2020 12:00:00 AM EDT completed [facility] ([facility]) Acetaminophen 32 MG/ML Oral Suspension [Tylenol] Tylenol Inf ants 09/19/2020 12:00:00 AM EDT ORAL completed [facility] ([facility]) 500 mg/15 mL 09/19/2020 12:00:00 AM EDT liquid 711 TAKE 15ML BY MOUTH OR VIA FEEDING TUBE EVERY 4 HOURS NEEDED FOR PAIN MAXIMUM DAILY DOSE = 90ML TAKE 15ML BY MOUTH OR VIA FEEDING TUBE EVERY 4 HOURS NEEDED FOR PAIN MAXIMUM DAILY DOSE = 90ML SOLD: 09/19/2020 [facility] Ondansetron 4 MG Disintegrating Oral Tablet ONDANSETRON 09/19/2020 12:00:00 AM EDT tablet,disintegrating 9 DISSOLVE O NE TABLET ON TONGUE EVERY 4 HOURS NEEDED FOR NAUSEA DISSOLVE ONE TABLET ON TONGUE EVERY 4 HO URS NEEDED FOR NAUSEA SOLD: 09/19/2020 [facility] Diclofenac Sodium 0.01 MG/MG Topical Gel Diclofenac Sodium 1 % External Gel (VOLTAREN) Diclofenac Sodium 1 % External Gel (VOLTAREN) 09/16/19 12:00:00 AM EDT 2 g Topical active Apply 2 g topica lly Four times daily as needed [facility] pantoprazole 40 MG Delayed Release Oral Tablet Pantoprazole Sodium 40 MG Oral Tablet Delayed Release (PROTONIX) Pantoprazole Sodium 40 MG Oral Tablet De layed Release (PROTONIX) 09/15/2020 12:00:00 AM EDT 40 mg Oral active Take 1 tablet by mouth Two Times Daily [facility] 100,000 unit/mL 08/24/2020 12:00:00 AM EDT suspension 473 USE 5ML BY MOUTH TO SWISH AND SWALLOW FIVE TIMES A DAY FOR 10 DAYS USE 5ML BY MOUTH TO SWISH AND SWALLOW FIVE TIMES A DAY FOR 10 DAYS SOLD: 08/24/2020 [facility] Nystatin [id number] UNT/ML Oral Suspension Nystatin 08/23/2020 12:00:00 AM EDT completed [facility] ([facility]) 300 mg 08/18/2020 12:00:00 AM EDT capsule 90 TAKE ONE CAPSULE BY MOUTH THREE TIMES A DAY NEEDED TAKE ONE CAPSULE BY MOUTH THREE TIMES A DAY NEEDED SOLD: 08/18/2020 [facility] gabapentin 300 MG Oral Capsule Gabapentin 08/18/2020 12:00:00 AM EDT ORAL completed [facility] ([facility]) Prednisone 20 MG Oral Tablet Prednisone 08/13/2020 11:15:13 AM EDT 20 MG active [facility] famciclovir 500 MG Oral Tablet Famciclovir Famciclovir 08/13/2020 11:14:58 AM EDT 500 MG active [facility] Omeprazole 20 MG Delayed Release Oral Capsule Omeprazole 08/13/2020 09:28:37 AM EDT 20 MG active [facility] Acetaminophen (Tylenol Extra Strength) 500 mg Capsule 08/13/2020 09:28:37 AM EDT 1000 MG active [facility] atorvastatin 20 MG Oral Tablet Atorvastatin Atorvastatin 08/13/2020 09:28:37 AM EDT 20 MG active [facility] 20 mg 08/13/2020 12:00:00 AM EDT tablet 15 TAKE THREE TABLETS BY MOUTH EVERY DAY FOR 5 DAYS TAKE THREE TABLETS BY MOUTH EVERY DAY FOR 5 DAYS SOLD: 08/13/2020 [facility] 500 mg 08/13/2020 12:00:00 AM EDT tablet 21 TAKE ONE TABLET BY MOUTH EVERY 8 HOURS TAKE ONE TABLET BY MOUTH EVERY 8 HOURS SOLD: 08/13/2020 [facility] 20 mg 06/14/2020 12:00:00 AM EDT capsule,delayed release (DR/EC) 90 TAKE ONE CAPSULE BY MOUTH EVERY DAY TAKE ONE CAPSULE BY MOUTH EVERY DAY SOLD: 06/17/2020 [facility] Omeprazole 20 MG Delayed Release Oral Capsule Omeprazole 06/13/2020 12:00:00 AM EDT ORAL completed [facility] ([facility]) . UNIT 12/14/2019 12:00:00 AM EDT Injectable 1 AD MIN FEE ADMIN FEE SOLD: 12/14/2019 [facility] atorvastatin 20 MG Oral Tablet ATORVASTATIN CALCIUM 11/27/2019 1 2:00:00 AM EDT tablet 30 TAKE ONE TABLET BY MOUTH EVERY D AY TAKE ONE TABLET BY MOUTH EVERY DAY SOLD: 01/27/2020 [facility] atorvastatin 20 MG Oral Tablet ATORVASTATIN CALCIUM 11/27/2019 1 2:00:00 AM EDT tablet 30 TAKE ONE TABLET BY MOUTH EVERY D AY TAKE ONE TABLET BY MOUTH EVERY DAY SOLD: 05/25/2020 [facility] atorvastatin 20 MG Oral Tablet ATORVASTATIN CALCIUM 11/27/2019 1 2:00:00 AM EDT tablet 30 TAKE ONE TABLET BY MOUTH EVERY D AY TAKE ONE TABLET BY MOUTH EVERY DAY SOLD: 03/28/2020 [facility] atorvastatin 20 MG Oral Tablet ATORVASTATIN CALCIUM 11/27/2019 1 2:00:00 AM EDT tablet 30 TAKE ONE TABLET BY MOUTH EVERY D AY TAKE ONE TABLET BY MOUTH EVERY DAY SOLD: 07/28/2020 [facility] atorvastatin 20 MG Oral Tablet ATORVASTATIN CALCIUM 11/27/2019 1 2:00:00 AM EDT tablet 30 TAKE ONE TABLET BY MOUTH EVERY D AY TAKE ONE TABLET BY MOUTH EVERY DAY SOLD: 04/24/2020 [facility] atorvastatin 20 MG Oral Tablet ATORVASTATIN CALCIUM 11/27/2019 1 2:00:00 AM EDT tablet 30 TAKE ONE TABLET BY MOUTH EVERY D AY TAKE ONE TABLET BY MOUTH EVERY DAY SOLD: 11/27/2019 [facility] atorvastatin 20 MG Oral Tablet ATORVASTATIN CALCIUM 11/27/2019 1 2:00:00 AM EDT tablet 30 TAKE ONE TABLET BY MOUTH EVERY D AY TAKE ONE TABLET BY MOUTH EVERY DAY SOLD: 02/23/2020 [facility] atorvastatin 20 MG Oral Tablet ATORVASTATIN CALCIUM 11/27/2019 1 2:00:00 AM EDT tablet 30 TAKE ONE TABLET BY MOUTH EVERY D AY TAKE ONE TABLET BY MOUTH EVERY DAY SOLD: 08/29/2020 [facility] atorvastatin 20 MG Oral Tablet ATORVASTATIN CALCIUM 11/27/2019 1 2:00:00 AM EDT tablet 30 TAKE ONE TABLET BY MOUTH EVERY D AY TAKE ONE TABLET BY MOUTH EVERY DAY SOLD: 12/24/2019 [facility] atorvastatin 20 MG Oral Tablet ATORVASTATIN CALCIUM 11/27/2019 1 2:00:00 AM EDT tablet 30 TAKE ONE TABLET BY MOUTH EVERY D AY TAKE ONE TABLET BY MOUTH EVERY DAY SOLD: 06/29/2020 [facility] atorvastatin 20 MG Oral Tablet Atorvastatin Calcium 11/25/2019 1 2:00:00 AM EDT ORAL active [facility] ( [facility]) No Active Medications 11/25/2019 12:00:00 AM EDT completed [facility] ([facility]) Insurance Providers Payer name Policy type / Coverage type Policy ID Covered alliance party ID Covered alliance party's relationship to [place] Plan Information UMR U [id number] Self [id number] MEDICARE [id number] SP [id number] MEDICARE A [id number] Self [id number] U[address] [facility] [id number] SP [id number] [employer] [id number] WI2 [id number] MEDICARE [id number] SP [id number] SELF PAY UNAVAILABLE SP UNAVAILA BLE UMR 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 Diagnosis 09/21/2020 06:09:37 AM EDT [facility] Surgeries/Procedures Procedure Description Date Indications Data Source(s) RADIOLOGY REPORT <td>RADIOLOGY REPORT</td><td ></td><td>11/15/2020 1:44 PM EDT</td><td></td><td></td> 11/15/2020 01:44:53 PM EDT [facility] Diabetic Retinal Eye Exam 10/21/2020 12:00:00 AM EDT [facility] ([facility]) Diabetic Retinal Eye Exam 10/07/2020 12:00:00 AM EDT [facility] ([facility]) OFFICE OUTPATIENT VISIT 25 MINUTES 10/05/2020 12:00:00 AM EDT [facility] ([facility]) Diabetic Retinal Eye Exam 10/03/2020 12:00:00 AM EDT [facility] ([facility]) OFFICE OUTPATIENT VISIT 15 MINUTES 08/18/2020 12:00:00 AM EDT [facility] ([facility]) CT C-Spine without contrast 08/13/2020 10:06:00 AM EDT [facility] CT Head without contrast 08/13/2020 10:06:00 AM EDT [facility] OFFICE OUTPATIENT VISIT 15 MINUTES 08/01/2020 12:00:00 AM EDT [facility]) OFFICE OUTPATIENT VISIT 10 MINUTES 06/13/2020 12:00:00 AM EDT [facility] ([facility]) ECG ROUTINE ECG W/LEAST 12 LDS W/I&R 11/25/2019 12:00: 00 AM EDT [facility] ([facility]) Results ID Date Data Source [id number] 12/05/2020 02:58:00 PM EDT [facility] ([facility]) Name Value Range Interpretation Code Description Data Negin rce(s) Supporting Document(s) Influenza A Amplification Laboratory test result [facility] ([facility]) Negative results do not preclude influen za or RSV virus infection and should not be used as the sole basis for treatment or other patient management decisions. Influenza B Amplification Laboratory test result [facility] ([facility]) Negative results do not preclude influen za or RSV virus infection and should not be used as the sole basis for treatment or other patient management decisions. RSV Amplification Laboratory test result [facility] ([facility]) Negative results do not preclude influen za or RSV virus infection and should not be used as the sole basis for treatment or other patient management decisions. Laboratory test finding (navigational concept) Laboratory test result [facility] ([facility]) A false negative result may occur if a s pecimen is improperly collected, transported or handled. False [...] pathogens. DISCLAIMER: Testing was performed using the [employer] SARS-CoV-2 test. This test was developed and its performance characteristics determined by [employer]. This test has not been FDA cleared [...] the authorization is terminated or revoked sooner. ID Date Data Source [id number] 12/05/2020 02:58:00 PM EDT [facility] Name Value Range Interpretation Code Description Data Negin rce(s) Supporting Document(s) SARS coronavirus 2 RNA [Presence] in Res piratory specimen by GEORGE with probe detection NEGATIVE [facility] This lab was ordered by [facility] a nd reported by [facility]. ID Date Data Source [id number] 12/05/2020 12:52:00 PM EDT [facility] ([facility]) Name Value Range Interpretation Code Description Data Negin rce(s) Supporting Document(s) Lactate [Mass/volume] in Serum or Plasma 1.1 mmol/L 0.4-2.0 [facility] ([facility]) Y/N query for Sepsis Lactate Rule: Y ID Date Data Source [id number] 12/05/2020 12:52:00 PM EDT [facility] ([facility]) Name Value Range Interpretation Code Description Data Negin rce(s) Supporting Document(s) CPK Creatine Phosphokinase 28 U/L 39-308 [facility] ([facility]) CK-MB Value Mass Laboratory test result [facility] MB/CK Relative Index 3.57 [facility] ([facility]) <content>DIAGNOSIS CRITERIA</content>
<content>MMB ng/ml Relative Index (RI)</content>
<content>NON-AMI < or = 5 N/A</content>
<content>TOMLIN ZONE > 5 < or = 4</content>
<content>AMI > 5 > 4</content>
<content></content> Troponin I Laboratory test result [facility] ([facility]) <content>Troponin I Reference Interval f or Siemens [place] LOCI:</content>
<content></content>
<content>99th Percentile= 0.00-0.045 ng/ml</content>
<content></content>
<content>Risk Stratification:</content>
<content><= 0.10 ng/ml Decreased Risk for Adverse Clinical</content>
<content>Events.</content>
<content>0.10-1.50 ng/ml Increased Risk for Adverse Clinical</content>
<content>Events. Evaluation of additional</content>
<content>criterion and/or repeat testing in 2-6</content>
<content>hours is suggested to rule out myocardial</content>
<content>damage.</content>
<content>>= 1.50 ng/ml Indicative of Myocardial Injury.</content>
<content></content> ID Date Data Source [id number] 12/05/2020 12:52:00 PM EDT [facility] ([facility]) Name Value Range Interpretation Code Description Data Negin rce(s) Supporting Document(s) Ast/Sgot 24 U/L 7-37 [facility] ([facility]) Alt/SGPT 24 U/L 12-78 [facility] ([facility]) Alkaline Phosphatase 142 U/L 45-117 [facility] ([facility]) Bilirubin,Total 0.8 mg/dL 0.2-1.0 [facility] ([facility]) Bilirubin,Direct 0.3 mg/dL 0.0-0.2 [facility] ([facility]) Total Protein 5.9 GM/DL 6.4-8.2 [facility] ([facility]) Albumin 2.8 GM/DL 3.2-5.2 [facility] ([facility]) Albumin/Globulin Ratio 0.9 [facility] ([facility]) ID Date Data Source [id number] 12/05/2020 12:52:00 PM EDT [facility] ([facility]) Name Value Range Interpretation Code Description Data Negin rce(s) Supporting Document(s) Glucose, Fasting 91 mg/dL 70-100 [facility] ([facility]) Creatinine For GFR 0.60 mg/dL 0.70-1.30 [facility] ([facility]) Blood Urea Nitrogen 11 mg/dL 7-18 [facility] ([facility]) Glomerular Filtration Rate Laboratory test result [facility]) <content>Units are mL/min/1.73 m2</content>
<content></content>
<content>Chronic Kidney Disease Staging per NKF:</content>
<content></content>
<content>Stage I & II GFR >=60 Normal to Mildly Decreased</content>
<content>Stage III GFR 30- 59 Moderately Decreased</content>
<content>Stage IV GFR 15-29 Severely Decreased</content>
<content>Stage V GFR <15 Very Little GFR Left</content>
<content>ESRD GFR <15 on PIPE CLEANING MACHINE OPERATOR</content>
<content></content> Sodium Level 130 meq/L 136-145 [facility] ([facility]) Potassium Serum 4.1 meq/L 3.5-5.1 [facility] ([facility]) Carbon Dioxide Level 26 meq/L 21-32 [facility] ([facility]) Chloride Level 95 meq/L 98-107 [facility] ([facility]) Calcium Level 8.7 mg/dL 8.8-10.2 [facility] ([facility]) Anion Gap 9 meq/L 8-16 [facility] ([place]) ID Date Data Source [id number] 12/05/2020 12:52:00 PM EDT [facility] ([facility]) Name Value Range Interpretation Code Description Data Negin rce(s) Supporting Document(s) Magnesium [Moles/volume] in Serum or Plasma 2.1 mg/dL 1.8-2.4 [facility] ([facility]) Thyroxine (T4) free [Mass/volume] in Serum or Plasma 1.28 ng/dL 0.76- 1.46 [facility] ([facility]) Thyrotropin [Units/volume] in Serum or Plasma by Detec tion limit <= 0.05 mIU/L 0.654 uIU/ML 0.358-3.740 [facility] ([facility] ) ID Date Data Source [id number] 12/05/2020 12:52:00 PM EDT [facility] ([facility]) Name Value Range Interpretation Code Description Data Negin rce(s) Supporting Document(s) Red Blood Count 3.52 10 4.30-6.10 [facility] ([facility]) White Blood Count 7.1 10 4.0-10.0 [facility] ([facility]) Hemoglobin 11.6 g/dL 13.5-17.5 [facility] [facility] Hematocrit 33.6 % 42.0-52.0 [facility] [facility]) Mean Corpuscular Volume 95.5 fl 80.0-96.0 [facility] ([facility]) Mean Corpuscular Hemoglobin 33.0 pg 27.0-33.0 [facility] ([facility]) Red Cell Distribution Width 15.3 % 11.5-14.5 [facility] ([facility]) Mean Corpuscular HGB Conc 34.5 g/dL 32.0-36.5 [facility] ([facility]) Platelet Count, Automated 146 10 150-450 [facility] ([facility]) Neutrophils % 72.2 % 36.0-66.0 [facility] ([facility]) Lymph % 11.0 % 24.0-44.0 [facility]) Cache % 13.1 % 2.0-8.0 [facility]) Eos % 1.4 % 0.0-3.0 [facility]) Immature Granulocyte % 2.0 % 0-3.0 [facility] ([facility]) Baso % 0.3 % 0.0-1.0 [facility]) Neutrophils # 5.2 10 1.5-8.5 [facility] ([facility]) Nucleated Red Blood Cell % 0.0 % 0-0 [facility] ([facility]) Cache # 0.9 10 0.0-0.8 [facility]) Lymph # 0.8 10 1.5-5.0 [facility]) Eos # 0.1 10 0.0-0.5 [facility]) Baso # 0.0 10 0.0-0.2 [facility]) ID Date Data Source [id number] 11/23/2020 10:45:39 AM EDT [facility] Name Value Range Interpretation Code Description Data Negin rce(s) Supporting Document(s) Progress Note [facility] [id number]QLOmN5DsDWP6tS2nNUQ7XMvPRjZlQnCzDRCx lbm [file] [id number] ID Date Data Source [id number] 11/22/2020 10:20:00 AM EDT [facility] Name Value Range Interpretation Code Description Data Negin rce(s) Supporting Document(s) Thyrotropin [Units/volume] in Serum or Plasma by Detec tion limit <= 0.05 mIU/L 0.432 uIU/ML 0.358-3.740 [facility] Carcinoembryonic Ag [Mass/volume] in Serum or Plasma 12.2 ng/mL [facility] ([facility]) THE CEA ASSAY IS PERFORMED ON THE [employer] BY CHEMILUMINESCENCE AND SHOULD NOT BE COMPARED INTERCHANGEABLY WITH OTHER METHODS. IT SHOULD NOT BE USED ALONE A SCREENING TEST OR DIAGNOSIS FOR THE PRESENCE OR ABSENCE OF MALIGNANT DISEASE. PREDICTIONS OF DISEASE RECURRENCE SHOULD NOT BE BASED SOLELY ON VALUES OBTAINED FROM SERIAL PATIENT SERUM VALUES. Thyroxine (T4) free [Mass/volume] in Serum or Plasma 1.59 ng/dL 0.76- 1.46 [facility] ([facility]) ID Date Data Source [id number] 11/22/2020 10:20:00 AM EDT [facility] Name Value Range Interpretation Code Description Data Negin rce(s) Supporting Document(s) Glucose, Fasting 104 mg/dL 70-100 [facility] ([facility]) Blood Urea Nitrogen 8 mg/dL 7-18 [facility] ([facility] Creatinine For GFR 0.67 mg/dL 0.70-1.30 [facility] ([facility] Glomerular Filtration Rate Laboratory test result [facility] ([facility]) <content>Units are mL/min/1.73 m2</content>
<content></content>
<content>Chronic Kidney Disease Staging per NKF:</content>
<content></content>
<content>Stage I & II GFR >=60 Normal to Mildly Decreased</content>
<content>Stage III GFR 30- 59 Moderately Decreased</content>
<content>Stage IV GFR 15-29 Severely Decreased</content>
<content>Stage V GFR <15 Very Little GFR Left</content>
<content>ESRD GFR <15 on PIPE CLEANING MACHINE OPERATOR</content>
<content></content> Sodium Level 131 meq/L 136-145 [facility] ([facility]) Potassium Serum 4.1 meq/L 3.5-5.1 [facility] ([facility]) Chloride Level 98 meq/L 98-107 [facility] ([facility]) Carbon Dioxide Level 27 meq/L 21-32 [facility] ([facility]) Anion Gap 6 meq/L 8-16 [facility] ([place] [facility]) Ast/Sgot 25 U/L 7-37 [facility] ([place] [facility]) Calcium Level 9.0 mg/dL 8.8-10.2 [facility] ([facility]) Alt/SGPT 22 U/L 12-78 [facility] ([place] [facility]) Alkaline Phosphatase 168 U/L 45-117 [facility] ([facility]) Bilirubin,Total 0.7 mg/dL 0.2-1.0 [facility] ([facility]) Albumin 2.8 GM/DL 3.2-5.2 [facility] ([place] [facility]) Total Protein 6.9 GM/DL 6.4-8.2 [facility] ([facility]) Albumin/Globulin Ratio 0.7 [facility] ([facility]) ID Date Data Source [id number] 11/22/2020 10:20:00 AM EDT [facility] ([facility]) Name Value Range Interpretation Code Description Data Negin rce(s) Supporting Document(s) White Blood Count 8.5 10 4.0-10.0 [facility] ([facility]) Hemoglobin 12.4 g/dL 13.5-17.5 [facility] ([facility]) Red Blood Count 3.84 10 4.30-6.10 [facility] ([facility]) Hematocrit 36.6 % 42.0-52.0 [facility]) Mean Corpuscular Volume 95.3 fl 80.0-96.0 [facility] ([facility]) Mean Corpuscular HGB Conc 33.9 g/dL 32.0-36.5 [facility] ([facility]) Red Cell Distribution Width 14.6 % 11.5-14.5 [facility] ([facility]) Mean Corpuscular Hemoglobin 32.3 pg 27.0-33.0 [facility] ([facility]) Neutrophils % 68.8 % 36.0-66.0 [facility] ([facility]) Platelet Count, Automated 178 10 150-450 [facility] ([facility]) Eos % 0.8 % 0.0-3.0 [facility]) Lymph % 10.5 % 24.0-44.0 [facility]) Cache % 14.7 % 2.0-8.0 [facility]) Immature Granulocyte % 4.5 % 0-3.0 [facility] ([facility]) Baso % 0.7 % 0.0-1.0 [facility]) Neutrophils # 5.8 10 1.5-8.5 [facility] ([facility]) Nucleated Red Blood Cell % 0.0 % 0-0 [facility] ([facility]) Lymph # 0.9 10 1.5-5.0 [facility]) Cache # 1.3 10 0.0-0.8 [facility]) Eos # 0.1 10 0.0-0.5 [facility]) Baso # 0.1 10 0.0-0.2 [facility]) ID Date Data Source [id number] 11/15/2020 01:19:00 PM EDT [facility] ([facility]) Name Value Range Interpretation Code Description Data Negin rce(s) Supporting Document(s) Glucose, Fasting 101 mg/dL 70-100 [facility] ([facility]) Blood Urea Nitrogen 12 mg/dL 7-18 [facility] ([facility]) Creatinine For GFR 0.56 mg/dL 0.70-1.30 [facility] ([facility]) Glomerular Filtration Rate Laboratory test result [facility] ([facility]) <content>Units are mL/min/1.73 m2</content>
<content></content>
<content>Chronic Kidney Disease Staging per NKF:</content>
<content></content>
<content>Stage I & II GFR >=60 Normal to Mildly Decreased</content>
<content>Stage III GFR 30- 59 Moderately Decreased</content>
<content>Stage IV GFR 15-29 Severely Decreased</content>
<content>Stage V GFR <15 Very Little GFR Left</content>
<content>ESRD GFR <15 on PIPE CLEANING MACHINE OPERATOR</content>
<content></content> Sodium Level 129 meq/L 136-145 [facility] ([facility]) Potassium Serum 4.2 meq/L 3.5-5.1 [facility] ([facility]) Carbon Dioxide Level 29 meq/L 21-32 [facility] ([facility]) Chloride Level 96 meq/L 98-107 [facility] ([facility] Anion Gap 4 meq/L 8-16 [facility] ([facility]) Calcium Level 8.6 mg/dL 8.8-10.2 [facility] ([facility]) Ast/Sgot 25 U/L 7-37 [facility] ([facility]) Bilirubin,Total 0.7 mg/dL 0.2-1.0 [facility] ([facility]) Alkaline Phosphatase 129 U/L 45-117 [facility] ([facility]) Alt/SGPT 23 U/L 12-78 [facility] ([facility]) Total Protein 6.3 GM/DL 6.4-8.2 [facility] ([facility]) Albumin 2.6 GM/DL 3.2-5.2 [facility] ([facility]) Albumin/Globulin Ratio 0.7 [facility] ([facility]) ID Date Data Source [id number] 11/15/2020 01:19:00 PM EDT [facility] ([facility]) Name Value Range Interpretation Code Description Data Negin rce(s) Supporting Document(s) White Blood Count 2.2 10 4.0-10.0 [facility] ([facility]) Red Blood Count 3.62 10 4.30-6.10 [facility] ([facility]) Hemoglobin 11.8 g/dL 13.5-17.5 [facility] ([facility]) Hematocrit 33.7 % 42.0-52.0 [facility] ([facility]) Mean Corpuscular Hemoglobin 32.6 pg 27.0-33.0 [facility] ([facility]) Mean Corpuscular HGB Conc 35.0 g/dL 32.0-36.5 [facility] ([facility]) Mean Corpuscular Volume 93.1 fl 80.0-96.0 [facility] ([facility]) Red Cell Distribution Width 13.6 % 11.5-14.5 [facility] ([facility]) Platelet Count, Automated 127 10 150-450 [facility] ([facility]) Cache % 36.5 % 2.0-8.0 [facility] ([place] [facility]) Lymph % 16.4 % 24.0-44.0 [facility] ([place] [facility]) Neutrophils % 43.4 % 36.0-66.0 [facility] ([facility]) Eos % 2.3 % 0.0-3.0 [facility] ([place] [facility]) Baso % 0.9 % 0.0-1.0 [facility] ([place] [facility]) Nucleated Red Blood Cell % 0.0 % 0-0 [facility] ([facility]) Immature Granulocyte % 0.5 % 0-3.0 [facility] ([facility]) Neutrophils # 1.0 10 1.5-8.5 [facility] ([facility]) Lymph # 0.4 10 1.5-5.0 [facility] [facility]) Cache # 0.8 10 0.0-0.8 [facility]) Eos # 0.1 10 0.0-0.5 [facility] [facility]) Baso # 0.0 10 0.0-0.2 [facility] [facility]) ID Date Data Source [id number] 11/10/2020 01:31:00 PM EDT [facility] ([facility]) Name Value Range Interpretation Code Description Data Negin rce(s) Supporting Document(s) Platelets reticulated/100 platelets in Blood by Automated count 3.8 % 0.0-10.91 [facility] ([facility]) ID Date Data Source [id number] 11/10/2020 01:31:00 PM EDT [facility] ([facility]) Name Value Range Interpretation Code Description Data Negin rce(s) Supporting Document(s) White Blood Count 3.6 10 4.0-10.0 [facility] ([facility]) Hemoglobin 12.3 g/dL 13.5-17.5 [facility] ([facility]) Red Blood Count 3.77 10 4.30-6.10 [facility] ([facility]) Hematocrit 35.0 % 42.0-52.0 [facility] ([facility]) Mean Corpuscular Volume 92.8 fl 80.0-96.0 [facility] ([facility]) Mean Corpuscular HGB Conc 35.1 g/dL 32.0-36.5 [facility] ([facility]) Mean Corpuscular Hemoglobin 32.6 pg 27.0-33.0 [facility] ([facility]) Red Cell Distribution Width 12.7 % 11.5-14.5 [facility] ([facility]) Platelet Count, Automated 85 10 150-450 [facility] ([facility]) Lymph % 4.7 % 24.0-44.0 [facility] [facility]) Neutrophils % 75.0 % 36.0-66.0 [facility] ([facility]) Cache % 16.1 % 2.0-8.0 [facility] [facility]) Eos % 2.8 % 0.0-3.0 [facility] Baso % 0.6 % 0.0-1.0 [facility] ([place] [facility]) Immature Granulocyte % 0.8 % 0-3.0 [facility] ([facility]) Neutrophils # 2.7 10 1.5-8.5 [facility] ([facility]) Nucleated Red Blood Cell % 0.0 % 0-0 [facility] ([facility]) Lymph # 0.2 10 1.5-5.0 [facility] Cache # 0.6 10 0.0-0.8 [facility] ([place] [facility]) Eos # 0.1 10 0.0-0.5 [facility] ([place] [facility]) Baso # 0.0 10 0.0-0.2 [facility] ([place] [facility]) ID Date Data Source [id number] 11/10/2020 01:31:00 PM EDT [facility] ([facility]) Name Value Range Interpretation Code Description Data Negin rce(s) Supporting Document(s) Glucose, Fasting 107 mg/dL 70-100 [facility] ([facility]) Creatinine For GFR 0.54 mg/dL 0.70-1.30 [facility] ([facility]) Blood Urea Nitrogen 11 mg/dL 7-18 [facility] ([facility]) Glomerular Filtration Rate Laboratory test result [facility] ([facility]) <content>Units are mL/min/1.73 m2</content>
<content></content>
<content>Chronic Kidney Disease Staging per NKF:</content>
<content></content>
<content>Stage I & II GFR >=60 Normal to Mildly Decreased</content>
<content>Stage III GFR 30- 59 Moderately Decreased</content>
<content>Stage IV GFR 15-29 Severely Decreased</content>
<content>Stage V GFR <15 Very Little GFR Left</content>
<content>ESRD GFR <15 on PIPE CLEANING MACHINE OPERATOR</content>
<content></content> Sodium Level 129 meq/L 136-145 [facility] ([facility]) Potassium Serum 3.8 meq/L 3.5-5.1 [facility] ([facility]) Chloride Level 97 meq/L 98-107 [facility] ([facility]) Carbon Dioxide Level 25 meq/L 21-32 [facility] Anion Gap 7 meq/L 8-16 [facility] [facility]) Alt/SGPT 22 U/L 12-78 [facility]) Ast/Sgot 17 U/L 7-37 [facility] [facility]) Calcium Level 8.3 mg/dL 8.8-10.2 [facility] ([facility]) Bilirubin,Total 0.6 mg/dL 0.2-1.0 [facility] ([facility]) Alkaline Phosphatase 116 U/L 45-117 [facility] Albumin 3.0 GM/DL 3.2-5.2 [facility] [facility]) Total Protein 6.4 GM/DL 6.4-8.2 [facility] ([facility]) Albumin/Globulin Ratio 0.9 [facility] ([facility]) ID Date Data Source [id number] 11/09/2020 10:18:04 PM EDT [facility] Name Value Range Interpretation Code Description Data Negin rce(s) Supporting Document(s) Progress Note [facility] DXOOGx7xKjSVLeQp75/TWRdhZTDyk0JlPSxpUDv5SOpgTGZhN2EeDRT1iT8aGQD7SJrFNvIxTbVoLRH7 lbm [file] 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+YC3DusrJQT4wlNC4juVNbSWSwP7tu5II24u6idE036IYNSSytvvMBu7ztEU8iWSfjqq8HpPqH6pNP [file] QUINTEN+JPdtXYnxjAz6yKGuPTKkTz4JBZWgHZEqZFOyXKUlZMUbBBBnUPJmTUWxTOUnCUMjWXQrQXVkEKYk ICAgICAgICAgICAgICAgICAgICAgICAgICAgICAgIC KbXIUbKLOuRVNuMYZrMTEuQJRpAXGoMVQmLUUwRW7DUDGjTBUjWYZvCUVeUMXlOKQeWTBzGALbLBVwRO AgICAgICAgICAgICAgICAgICAgICAgICAgICAgICAgICAgICAgICAgICAgICAgICAgICAgICAgICAgIC ZwEPHuDXYtWVRyFV8RPDFeCRMuDAReXCTmCVJoQFAd ICAgICAgICAgICAgICAgICAgICAgICAgICAgICAgICAgICAgICAgICAgICAgICAgICAgICAgICAgICAg MLNwIQZlKWCtZDJoYJYwFMCnFFYtQM2CTIRdENVoVPYgJFVbSPUrNHCgBNQzKNNgVNKlGAFvLBDwYZMz ICAgICAgICAgICAgICAgICAgICAgICAgICAgICAgIC FqXVYiBHUmLIEgHABdKCRiRJXrRCNtNWDzSLNsKMRvRG8TLRIyDCVlSQWrPHZmKSRmTZYnLFLhGQBaWO AgICAgICAgICAgICAgICAgICAgICAgICAgICAgICAgICAgICAgICAgICAgICAgICAgICAgICAgICAgIC SsGNOsLZFoSJEoYWNtDN7PFGXcLQEnSYNfPESaFVEr ICAgICAgICAgICAgICAgICAgICAgICAgICAgICAgICAgICAgICAgICAgICAgICAgICAgICAgICAgICAg SBFdTJHaYECjCTBhZFDoLNKqIHDzAODrBD8UEETsXBLdWVTyHQFtZVTkHNXxDLAbVYWqSQZlGPPpDHNj ICAgICAgICAgICAgICAgICAgICAgICAgICAgICAgIC OaUYQiWWTrMKFhXZEyNPMtNUOoAMWqDVNoUAZlJPQjTFGlHZ2AOHJcBEIiJZLdPDSmXYNfWEYuGXBzPZ AgICAgICAgICAgICAgICAgICAgICAgICAgICAgICAgICAgICAgICAgICAgICAgICAgICAgICAgICAgIC UrDDScXOJwLDIrCQNuINImGF3WQPNlATXfCRAaZGEy ICAgICAgICAgICAgICAgICAgICAgICAgICAgICAgICAgICAgICAgICAgICAgICAgICAgICAgICAgICAg FNSnHFLnFIAoJZDyBZNcFCMyGDSvTTNgLNBbNV0JOEJoYSNsWAXtTXYjUBDeYOBbOEMkFWDiQYPwGHLb ICAgICAgICAgICAgICAgICAgICAgICAgICAgICAgIC RaOCOkKFJhATKnONMcFVMnETLqNYMxCBMvUQEuBKXsZOSoVOLaQL2IDF54dNJty3G2ZCFdCW4subj/Pg 5MTCwhrnXssDOgMW4JMvBrXE6cnq2BZmNwCG8aok9CIQpFFzKvD2J4oDCgAOKfCGXDKkXxF77yWBgxMf 39RIihJAMxUgVyXYa9Uj7XTvSsN1jvKZUuBoU6RSZe PbZ1OUCfBxZ6FXJrFvCbFEujQV8Ne6ZufWLfVUw+Nq2LGC7yf2RfOQthQtOkNI0gwz7DLWrMVsUbQ3Um fvI0QLZ5IVLlAw4VJZGlZTOkaMSzUORkILDGDlQdY1StyZ58QKUDBv0+DAqjbuZqCwkVZhP5XQVbx7Tv RZd9WX9EXZOgYBo7aKHtYUWnM6Hym2YwUr01DDVbOj adUZwowXWdfBQQRZ2ftVcnZLAjVYNkWW2rQJ8cVCDdBUF2OaZtTZKWSD6TXMKmCLWmvYPnVLOdENOMQK 0ZUIlvSMY0FKXcqhUzfXDnKVewUA3XUKPkpnUdZoGjTXTIWAr+He3LMP1uh7VvBZlkYJOmOS3acv0GKL vLCqBwU6M6aPNhS4X3OUyuMv4XNUXxHINwAjKgTAKF VWspKS9RYN6fbxQ8AH2EyGDiGUJwESAxkJJlIYe7S73gkVIfZZrwVC8RJGB+Romie+Tz3QBHWfLSSwDPSl OeQyVFACXrXdN9IpD5ZJy7QuS3DqHM17dMjowlGdILrfSF9BML7jGKWvBWORFG9QjYXokI6cxdOuHmQe TBIOUpXcM04zqMJfCYKlSSCgJFQeHj4TCNTkY5Funq NjkUogoqUrCUSgJMEMEI9MYTkxejAefLAljSbwDW79xCnhMH7MIl0BEoDnJB3wdv4ZfGAsZv8UYVUjPk 7DQSMdMBPaHUBfMHC1FXFfYvZxJAeoMLGaMOUnTPZ1CVJkYUSmCM3KTpHmRHOmUhU6SvLoIYWlXDLblr 8EUNEiGPWhVqI7WmJuQCTiNZZyDRkjFNEdAKLdFJX0 RTQrDNRuKA3GIrBzAOKfQDS1WYCmMLMyZPGisz8QWXWmQWGyRta3LDWaUCBzJLTkEKwrFCTaVRH0LIDo FAPcNFQyCC1GDqHzJAWuHGzeSALeBEObKTVsba2GZERjRYGwCVX2KDNqEWInZMObZSruAPLzLKQ4CPId OCTfRSZhEJ9KIkHbWXYzXRW7KaYqETGqWBNmbv7LUF GcYAWdPMX2OWXyIHHbCGVbMJifZKGuFFIeAHRrJNChWZKvZO0DPhDpQXQdAIF9DYGwNJYjFZQnvj5LDR PjGKLxPiImMbVyCGLtKEFyHUazAQWtBOCcTKofMEZyAXUjTX8JYiVbPSBbDiH0ObOxQEArHTSwof1REW HoUURwLaj8EsOxJXIgLYOzYWkuTRQsNLT7GOL9DAGv RWXuZO0PZbLyQUTsJzX8DTNfIVUlTNGcib6UZJWhCTKuMFJ9GEHsQBMuPDHpNBfeENIyZVH2KGHvFLEw ASYbJF8FHzEvRCAoTuV5ZJAyWYHeAHCugv6EQGXhWMFrFvW5NjShFOVqTMBmDQcmHMVvCGX2XrLzCJHv UMGbSO4GRdWqEUgwEAGCYve3MJuaY0r1ZRNkOs9LG2 Pek2TuWbIdTPKNAXxgBI7eqeZhRRXlEb9HG8mIOdzwQSR6Sio0B1VoASV8KsgcBxmkUsZ9N5IsMIWxDC YiLF9hHKS7BHLjJQIhEJD8UCnvNaX5OGItShagJSA0XsChEUM9XyKwGQ4ZPl1DGaZ7QVU0dGOlFu3HLl W5ZzHXYdGpAL1MGMt= ID Date Data Source [id number] 10/31/2020 10:44:00 AM EDT [facility] ([facility]) Name Value Range Interpretation Code Description Data Negin rce(s) Supporting Document(s) Glucose, Fasting 101 mg/dL 70-100 [facility] ([facility]) Blood Urea Nitrogen 8 mg/dL 7-18 [facility] ([facility]) Glomerular Filtration Rate Laboratory test result [facility] <content>Units are mL/min/1.73 m2</content>
<content></content>
<content>Chronic Kidney Disease Staging per NKF:</content>
<content></content>
<content>Stage I & II GFR >=60 Normal to Mildly Decreased</content>
<content>Stage III GFR 30- 59 Moderately Decreased</content>
<content>Stage IV GFR 15-29 Severely Decreased</content>
<content>Stage V GFR <15 Very Little GFR Left</content>
<content>ESRD GFR <15 on PIPE CLEANING MACHINE OPERATOR</content>
<content></content> Creatinine For GFR 0.48 mg/dL 0.70-1.30 [facility] ([facility] Potassium Serum 4.2 meq/L 3.5-5.1 [facility] ([facility]) Sodium Level 131 meq/L 136-145 [facility] ([facility]) Chloride Level 96 meq/L 98-107 [facility] ([facility] Carbon Dioxide Level 29 meq/L 21-32 [facility] ([facility] Anion Gap 6 meq/L 8-16 [facility] ([facility]) Ast/Sgot 27 U/L 7-37 [facility] ([facility]) Calcium Level 8.5 mg/dL 8.8-10.2 [facility] ([facility]) Alkaline Phosphatase 137 U/L 45-117 [facility] Alt/SGPT 21 U/L 12-78 [facility] ([facility]) Total Protein 6.2 GM/DL 6.4-8.2 [facility] ([facility]) Bilirubin,Total 0.8 mg/dL 0.2-1.0 [facility] ([facility]) Albumin 3.0 GM/DL 3.2-5.2 [facility] Albumin/Globulin Ratio 0.9 [facility] ([facility]) ID Date Data Source [id number] 10/31/2020 10:44:00 AM EDT [facility] ([facility]) Name Value Range Interpretation Code Description Data Negin rce(s) Supporting Document(s) Red Blood Count 4.16 10 4.30-6.10 [facility] ([facility]) White Blood Count 6.3 10 4.0-10.0 [facility] ([facility]) Hematocrit 38.8 % 42.0-52.0 [facility] [facility]) Hemoglobin 13.3 g/dL 13.5-17.5 [facility] ([facility]) Mean Corpuscular Hemoglobin 32.0 pg 27.0-33.0 ME DENT ([facility]) Mean Corpuscular Volume 93.3 fl 80.0-96.0 [facility] ([facility]) Mean Corpuscular HGB Conc 34.3 g/dL 32.0-36.5 MEDE NT ([facility]) Red Cell Distribution Width 13.0 % 11.5-14.5 ME DENT ([facility]) Platelet Count, Automated 111 10 150-450 MEDE NT ([facility]) Neutrophils % 81.0 % 36.0-66.0 [facility] ([facility]) Lymph % 2.7 % 24.0-44.0 [facility]) Cache % 11.9 % 2.0-8.0 [facility]) Eos % 2.7 % 0.0-3.0 [facility]) Baso % 0.3 % 0.0-1.0 [facility]) Immature Granulocyte % 1.4 % 0-3.0 [facility] ([facility]) Nucleated Red Blood Cell % 0.0 % 0-0 MED ENT ([facility]) Lymph # 0.2 10 1.5-5.0 [facility]) Neutrophils # 5.1 10 1.5-8.5 [facility] ([facility]) Baso # 0.0 10 0.0-0.2 [facility]) Eos # 0.2 10 0.0-0.5 [facility]) Cache # 0.8 10 0.0-0.8 [facility]) ID Date Data Source [id number] 10/31/2020 10:44:00 AM EDT [facility] ([facility]) Name Value Range Interpretation Code Description Data Negin rce(s) Supporting Document(s) Carcinoembryonic Ag [Mass/volume] in Serum or Plasma 30.5 ng/mL [facility] ([facility]) THE CEA ASSAY IS PERFORMED ON THE [facility] BY CHEMILUMINESCENCE AND SHOULD NOT BE COMPARED INTERCHANGEABLY WITH OTHER METHODS. IT SHOULD NOT BE USED ALONE A SCREENING TEST OR DIAGNOSIS FOR THE PRESENCE OR ABSENCE OF MALIGNANT DISEASE. PREDICTIONS OF DISEASE RECURRENCE SHOULD NOT BE BASED SOLELY ON VALUES OBTAINED FROM SERIAL PATIENT SERUM VALUES. ID Date Data Source [id number] 10/31/2020 10:44:00 AM EDT [facility] ([facility]) Name Value Range Interpretation Code Description Data Negin rce(s) Supporting Document(s) Thyroid Stimulating Hormone 0.394 uIU/ML 0.358-3.740 [facility] ([facility]) Free T4 1.31 ng/dL 0.76-1.46 [facility] ([facility]) ID Date Data Source [id number] 10/25/2020 01:20:53 PM EDT [facility] Name Value Range Interpretation Code Description Data Negin rce(s) Supporting Document(s) Progress Note [facility] MKMVVf1lAkCMReAq02/YSByqFFNjn3UkLHypSDp5NDefVWYzH4WiTYK2zD7mJZM3IQwIWhOfKdLwOQGr [facility] [file] GGA7UQH5EVs5N7K0APXaOyOfXyD+UB4eTWb+Ns1Bq6DokaF9bdMjWUmtIKtqAl8EYXKIN5DCQu== ID Date Data Source [id number] 10/21/2020 04:35:14 PM EDT [facility] Name Value Range Interpretation Code Description Data Negin rce(s) Supporting Document(s) Progress Note [facility] FBPHIf3pNcPNDyPi43/QAKqgXNAdo3ApQOqhUPb4EIfiJCOeR9OoALS7jE2rDDS6KPcCKxQwTeUlBjCl lbm [file] AgICAgICAgICAgICAgICAgICAgICAgICAgICAgICAgICAgICAgICAgICAgICAgICAgICAgICAgICAgIC AgICAgICAgICAgICAgICAgICAgICAgICAgICAgICAgICAgICAgDQogICAgICAgICAgICAgICAgICAgIC AgICAgICAgICAgICAgICAgICAgICAgICAgICAgICAg ICAgICAgICAgICAgICAgICAgICAgICAgICAgICAgICAgICAgICAgICAgICAgICAgDQogICAgICAgICAg ICAgICAgICAgICAgICAgICAgICAgICAgICAgICAgICAgICAgICAgICAgICAgICAgICAgICAgICAgICAg ICAgICAgICAgICAgICAgICAgICAgICAgICAgICAgDQ ogICAgICAgICAgICAgICAgICAgICAgICAgICAgICAgICAgICAgICAgICAgICAgICAgICAgICAgICAgIC AgICAgICAgICAgICAgICAgICAgICAgICAgICAgICAgICAgICAgICAgDQogICAgICAgICAgICAgICAgIC AgICAgICAgICAgICAgICAgICAgICAgICAgICAgICAg ICAgICAgICAgICAgICAgICAgICAgICAgICAgICAgICAgICAgICAgICAgICAgICAgICAgDQogICAgICAg ICAgICAgICAgICAgICAgICAgICAgICAgICAgICAgICAgICAgICAgICAgICAgICAgICAgICAgICAgICAg ICAgICAgICAgICAgICAgICAgICAgICAgICAgICAgIC AgDQogICAgICAgICAgICAgICAgICAgICAgICAgICAgICAgICAgICAgICAgICAgICAgICAgICAgICAgIC AgICAgICAgICAgICAgICAgICAgICAgICAgICAgICAgICAgICAgICAgICAgDQogICAgICAgICAgICAgIC AgICAgICAgICAgICAgICAgICAgICAgICAgICAgICAg ICAgICAgICAgICAgICAgICAgICAgICAgICAgICAgICAgICAgICAgICAgICAgICAgICAgICAgDQogICAg ICAgICAgICAgICAgICAgICAgICAgICAgICAgICAgICAgICAgICAgICAgICAgICAgICAgICAgICAgICAg ICAgICAgICAgICAgICAgICAgICAgICAgICAgICAgIC AgICAgDQogICAgICAgICAgICAgICAgICAgICAgICAgICAgICAgICAgICAgICAgICAgICAgICAgICAgIC SfDBPuXSQxDMWwQTPeBRZlJXKtTICqARVfGEVlCXYfNWDpTUAxWJYkBQEbXRCdIWo4K7lgKGLgIBQzSX 1kTYi3St8+ZMrKTzGbLFE5ltDloU7VVU5ny1BfEOkg KIWfb6YxPYz1FJ5JWAGcHOizNZ2YJPaczk6ZZVIzGZSexBGOv0ztLvGrUWA9BYNcElyyDA8OYWFzO9pj zgJrRUBlCEGOTFkhLELKULnvXPYXQK1XKfLsX9GczT45HDREWc3+DUcqtmTpYoxWCjTsSIZed3UnSMt4 AQ2HUUDnChwrk6AeGqAhBPAJSGrbHA0NIAS5ZQT4FU RuTt1COLZpV754ukXwNZ3LQz3LGyQnHC3ojy3PUxTpDJEuMvgIKdn5CNkaTN3TlUQhJTpYvp1qijRnmk QGw1FhunYoaSQBGORbKXRKNTKgBSAiuOTvb11bRJPGJBHsnBF5PqBxOwOkCwPtIVJ8VBStUK9dLJfsXS 1CBWB0XWyhVWRjPGQaU1bDEwNoYXFlXXHscKqtDE3B BbSgH9MnkbCcmMEkFpUkNYEYZz0+USfocgDgMojYLiB6ACFyw4DiQYq4YC1CWBNhAWctJV4LNEEwvQ4s BNgfFY8YMoXdDCFpQPEZQtInO10ngFSpWBi7A5NrQzFzTSBcDccfECFtWHxdRnIdOKMoVwBfCSbyLK3+ ID4+OWitYG3XSVxfemXjHKHvLu4ALKEpPNIdGX9vQO LvGQZbB1Q2dVoqRQFPQkMhF2jzzdgwNX3xLQKqN483nLfpeyIwYAKvIFWfTn9HCXXjHDL8VGGzyQGbWv FaFIKCNVtaNE2AfEIdZKH9bS6oQXtoDAWiOOGsG5oOGgSvrYcaEH07zAaphmQrcRGtGXl+Jz3DPL2kk3 XpTHb8grJlQLeoJCR8FGzfAOHxEFGkVTUoVJC1CFP3 YRHANeQwCWDrPHNdUZpqKNCjPDOavt3OXXUqNTJoHrTuVYWwLDRcJMJbVTwqNTYwVQE2QSB3VDExMCFl LH9PXvOfGIDqSOLjDBwkLBRkOKNfld7BPMGeDBLsRsHoPMEkMSEdZKYiVJelXEEeFDWkHcP1GHScXKUm CJ7JAjTiQGXgVIGnKGzwCFRiUFSuew7ECKTzPJGjHh L1SaNaGKTlXEDiYLshYKBpGMS6SAZ7YMQtSHHqZS5VBdGpVUCxGSasQJswLEYbADRfea6NOHPkJNBpLP MsEIVgAWYfZLWfVWgwOUPoBXR9BYU2ZAPpZTNlZJ5ZDnDcGGKeKMz0XIqaPKYrMXTmkf5HGISpRFLwFY L4NmXiHPSvFFRqGAcfGSTtLCIuTCV3GFUnTYPbBC2C TjQfKCZaKREsALqlZFIgQYBfaq7PYYPzSGFhPnZ3IkMkIJGmIMZnRInoUQUeUUPzWEVlUNRzXULaCZ0J NlDzGZWvGfQcMTRhFZEdUOQmwf0WITOvTBUxYyU9RBNkDYSnXKYpRUcnBWHxMNOrKVI6XKSdKZKwNH7A FqTkUINxKsB4PSkfGHPrGBJhpk1RFFJdJPLxKRP8EN RbLOYnESQgJNfgAPCnVBG3AuB1GBZpPNBxIN3NPqVnJSGcZiG3OUZrYBBmKZKfzh1EfWPhyRvwij4NUZ mORq2RqDlvXQJ9JHwaNs1snFRzAZCcEHYFTz0OsuYiQFFfKWVRAQgsPCNqXNQ1KBYcIyNjVRUpVWXwCY VjOeO1Mxq3NXH2XUBrHFw0YjV5RZjhZpWzCYTySAI3 StQvRYBoZYRmUxjeKWEaLRN3XNZ+KI0eWTx+Wq6No9TkbeQ0zoUeSWnqGMwdUp5HGQDIZ8NRYz== ID Date Data Source [id number] 10/14/2020 10:47:00 PM EDT [facility] ([facility]) Name Value Range Interpretation Code Description Data Negin rce(s) Supporting Document(s) Glucose, Fasting 107 mg/dL 70-100 [facility] ([facility]) Blood Urea Nitrogen 8 mg/dL 7-18 [facility] ([facility]) Creatinine For GFR 0.46 mg/dL 0.70-1.30 [facility] ([facility]) Sodium Level 130 meq/L 136-145 [facility] ([facility]) Glomerular Filtration Rate Laboratory test result [facility] ([facility]) <content>Units are mL/min/1.73 m2</content>
<content></content>
<content>Chronic Kidney Disease Staging per NKF:</content>
<content></content>
<content>Stage I & II GFR >=60 Normal to Mildly Decreased</content>
<content>Stage III GFR 30- 59 Moderately Decreased</content>
<content>Stage IV GFR 15-29 Severely Decreased</content>
<content>Stage V GFR <15 Very Little GFR Left</content>
<content>ESRD GFR <15 on [employer]</content>
<content></content> Potassium Serum 4.2 meq/L 3.5-5.1 [facility] ([facility]) Chloride Level 96 meq/L 98-107 [facility] ([facility]) Anion Gap 10 meq/L 8-16 [facility] Carbon Dioxide Level 24 meq/L 21-32 [facility] ([facility]) Calcium Level 8.9 mg/dL 8.8-10.2 [facility] ([facility]) ID Date Data Source [id number] 10/14/2020 10:47:00 PM EDT [facility] ([facility]) Name Value Range Interpretation Code Description Data Negin rce(s) Supporting Document(s) White Blood Count 9.4 10 4.0-10.0 [facility] ([facility]) Red Blood Count 4.35 10 4.30-6.10 [facility] ([facility]) Hemoglobin 13.9 g/dL 13.5-17.5 [facility]) Mean Corpuscular Volume 90.8 fl 80.0-96.0 [facility] ([facility]) Hematocrit 39.5 % 42.0-52.0 [facility]) Mean Corpuscular Hemoglobin 32.0 pg 27.0-33.0 ME DENT ([facility]) Mean Corpuscular HGB Conc 35.2 g/dL 32.0-36.5 MEDE NT ([facility]) Red Cell Distribution Width 12.3 % 11.5-14.5 [facility] ([facility]) Platelet Count, Automated 184 10 150-450 [facility] ([facility]) Neutrophils % 84.2 % 36.0-66.0 [facility] ([facility]) Lymph % 5.2 % 24.0-44.0 [facility]) Cache % 6.9 % 2.0-8.0 [facility]) Eos % 2.5 % 0.0-3.0 [facility]) Immature Granulocyte % 1.0 % 0-3.0 [facility] ([facility]) Baso % 0.2 % 0.0-1.0 [facility]) Neutrophils # 8.0 10 1.5-8.5 [facility] ([facility]) Nucleated Red Blood Cell % 0.0 % 0-0 MED ENT ([facility]) Cache # 0.7 10 0.0-0.8 [facility]) Lymph # 0.5 10 1.5-5.0 [facility]) Eos # 0.2 10 0.0-0.5 [facility]) Baso # 0.0 10 0.0-0.2 [facility]) ID Date Data Source [id number] 10/14/2020 04:27:20 PM EDT [facility] Name Value Range Interpretation Code Description Data Negin rce(s) Supporting Document(s) Progress Note [facility] TTZGLs0qXeDQHqHo39/QRHrdBSQyf3SqGNeaJOz3TQpvQZQtH4DgEUR7sV3iKCD3HNhCFzZkWrVfEjQb lbm [file] ICAgICAgICAgICAgICAgICAgICAgICAgICAgICAgICAgICAgICAgICAgICAgICAgICAgICAgICAgICAg ICAgICAgICAgICAgICAgICAgICAgICAgICAgICAgIC AgDQogICAgICAgICAgICAgICAgICAgICAgICAgICAgICAgICAgICAgICAgICAgICAgICAgICAgICAgIC AgICAgICAgICAgICAgICAgICAgICAgICAgICAgICAgICAgICAgICAgICAgDQogICAgICAgICAgICAgIC AgICAgICAgICAgICAgICAgICAgICAgICAgICAgICAg ICAgICAgICAgICAgICAgICAgICAgICAgICAgICAgICAgICAgICAgICAgICAgICAgICAgICAgDQogICAg ICAgICAgICAgICAgICAgICAgICAgICAgICAgICAgICAgICAgICAgICAgICAgICAgICAgICAgICAgICAg ICAgICAgICAgICAgICAgICAgICAgICAgICAgICAgIC AgICAgDQogICAgICAgICAgICAgICAgICAgICAgICAgICAgICAgICAgICAgICAgICAgICAgICAgICAgIC AgICAgICAgICAgICAgICAgICAgICAgICAgICAgICAgICAgICAgICAgICAgICAgDQogICAgICAgICAgIC AgICAgICAgICAgICAgICAgICAgICAgICAgICAgICAg ICAgICAgICAgICAgICAgICAgICAgICAgICAgICAgICAgICAgICAgICAgICAgICAgICAgICAgICAgDQog ICAgICAgICAgICAgICAgICAgICAgICAgICAgICAgICAgICAgICAgICAgICAgICAgICAgICAgICAgICAg ICAgICAgICAgICAgICAgICAgICAgICAgICAgICAgIC AgICAgICAgDQogICAgICAgICAgICAgICAgICAgICAgICAgICAgICAgICAgICAgICAgICAgICAgICAgIC AgICAgICAgICAgICAgICAgICAgICAgICAgICAgICAgICAgICAgICAgICAgICAgICAgDQogICAgICAgIC AgICAgICAgICAgICAgICAgICAgICAgICAgICAgICAg ICAgICAgICAgICAgICAgICAgICAgICAgICAgICAgICAgICAgICAgICAgICAgICAgICAgICAgICAgICAg DQogICAgICAgICAgICAgICAgICAgICAgICAgICAgICAgICAgICAgICAgICAgICAgICAgICAgICAgICAg ICAgICAgICAgICAgICAgICAgICAgICAgICAgICAgIC YgHTHdNPLvWVIqTVh1M7lgOGHrSLVbNN8nTXv8Wp6+ZZwWVeBwUVR9twQbjZ9OYM4pm9FoZNtzKRZsr0 EpBWr5WE2JAXQuCUfiJP4KKRsdbk1CJEMrBERncVKYi8pmCvCcZOK7CTFmKqthBJ3MPHWvX3bzwuXqXV WdZIHCUDeqWYKHYAchKMLZFY5VOrUcE0NwxT43EASA Cj4+QBcyfpHnUgcBSxKlNAKcg6OrAQa5UX5BPKVvHolhw4SdEdPbAFXYAEzzEG4PSFL4REW5RNWcBh2W IUDjZ483tzPyJB7KIk6SJzJlBM3cos0BCeVtFUMvZxtKTaz8HZsiAF7AeELkCIpNsp5fzaIeszJYc4Qq ivHiwPKGNBleRAj4iHZwSINOYNSjeYA8KwOaAjKqRd ZmFPL8ZRUtKR1zMUjiCP9LTCP7WLmrQCUsRZEvY7rXTiWnWSLfIESpmXouGN2BPrVlY6TjnjZfnIQmAf AwIFINCj4+XQiqzfDyWmkYZkK1WOAai0DzBFi9YT5HSUEiMNajXH5QMJOlpN2oWIxrJG1ZLgIeSSGeKN VKLmXxP58axPDoLVc2Y0XvYlGoOZFzGatzEHCiFCfr TmFtZXMgWyBdDQogID4+ID4+RPwkWI7OJBfddrOzZHDoQj9NLIPfFQKsOE4oRDVzUWLuF3W8iIwiJDHY TePoE6lgirxeAB7uAAKpR209aPlnhhNrGJIkCHQrIv4ALDUpCFZ3PENsoVBpWrExZJTJNOttQE6CuTRf LEA3aP3tRPzbOWVhUVOrC4oGDcUtpCnqBI38kNexnv VsbCBdDQo+Oz4IRE2bu0BcACp3iuTtKHwsGYS5PNdzRTVoIGZpEXXbUHY9FAB1HYFLEkKnCODfVECbDN rxKQVrPOXhii3YIKFjSRRjZyRjWkWuTTVhGCNpGEitEEUpKNV4VKYmPJClPNUzAY0BLiIeADWcJPPuGB zpOPHgMGSiic3PZXYuEGNiQfKwLpRfSJRuWLXgMKgq GKOcXTCxFxEvRESpPTZgBV2BLoPwVOQcTLPxYnxkBTGyYXHqyf4GKZEiQOUfOnY6AWMfIOQvFYFyPMzw XNBkJJW0XMU2WSNgFSHzAY3PNpIbVZSlHSoxLoErHCUbLOSzyi0OIFDrIOPjITExGpUfGFQtWAWkLSaz UDJeJFW2YZZ6AFMhGQBlXV0MOtNgKPOdFMm6XNAzXL DgLDOljp2CKGZpJEGvLSO7OHHtZUGfGODnQXbsAAWwYOPnUvBxSWGaDAKqEF5OIgKkAXVtSZB2CYXvAB UtRGVhwu7QYPYzCYKlAtZ7CDEoRZCvVREuIYfvBYYrURBnAoY2EYCiZGIgHL8NRkRmVEDkJzC3FGHxUA WoVWEtiy5JCZJwYTCnZhF7TVDsKMIkWVPbXDmjRGNb RGDtRzDtOSAbZVRsTT4JDvOfRBLlQpE3XOKtNREtXVHwml0XGPKjUNXhABH0ChWlLSVkTHUmPFzyRKMk TJL2BgJrICHxNLUpAZ7JAyFxTGRdJuPfKmwvINIvYIRska2OyTUqmEdiqz4GTEfZFc7XaStgMSY7BEce Eu1rjPZoQJAoQLLFLr7AuoXbCCIpHCDBLAoiYGRnSY FgWTUnYRYtSWOmBUO7EmEtCLW2QPA8ITLqMyB8VTDcYnI8GhShHgN7EiZ2ZNX2UjH7XMMxUqN1IgehMT EzMTZhNTM+GW1rUSo+Er4Ff2LgdxW2yfSuXSftFFMgYx8ZWLJKC2KVCh== ID Date Data Source [id number] 10/07/2020 12:25:01 PM EDT [facility] Name Value Range Interpretation Code Description Data Negin rce(s) Supporting Document(s) Progress Note [facility] HOPFHx0nFjUAAjIu87/BPXxoENAve7NhHPqdRZt9DGelFROtM1LxGXO7qP4rZCR0SDeYOyWbOoUbKtT8 lbm HpAcfIXwNdUOAqPmhWDiBaNUqcEbbfcXJcJE8TxUU8ZSCeE54vYVDpQLJlF8TtLPRlKLF+Dt7EWLJnzP QuHY6CDiiM2Nmrp5n9Er++jL1XZMviIl8pZQYHZLiUsLjdEtttIsfmJsg6kCgE4aFrdFjUzxQgSa4uaG vPH6zDOrWXXyqBQ0Quy+/j4xZECf71Uuh1DhBY6S+q P/2Qk8mC/QEfmF2y0Qup/rqDIRyVsLK66eScI4b0+3PLL7I9gzJWK3i4hrwqTRGS1ftzGlclDuj3Ca5+ FxL7SIvF6xDyRpGCD3WUkHUOAQdIlbxMa9AjryTk4MSPULW2T7OBUYbxs+e1UNzEB0OB933ABt75Vftu iXUUOBNi7ZWGtYPE+tReuMNZIrgk7l1q0SPl7zd7HE p3HEwfDk1fYaCQFMYbTeAdVqbpf/TPdss7TtnWjYoo3Ww7BHs+z5QkZUBNLOUSSjdd1qhge6lvu+Wf8e PBtDy3B4CDVTllElTPUMIjE2NyK2q1c3JWC3DvSa1qoeGo5qV0RZajQE67i8GiCJVCugyI+0lyN/By5V ZWWFRkL9MkJqbgAJN5/dCD6Jz3lWNAbCA+k/ uERUxoi/aMXpJS23grOiXSfzN/iFPkxbzXX46zoCYVXlt1xta25Dukn8eg6hjrGv4xe9/VlYV4jzVbn0 rK6ez7xtHarKRPAzqLISaLlfWwqcTLR6Tq6eI8WwhSYp3cmzJRZchh+Fgp8QSd+dkbN/R0wX61KJHYlp MJYC830UBmGbAG5T4PR5pgrPucVncde/crxaxCbrLQ kmTaWBna4+zOYZnEHXkHjScD+Ok/g6TpJ4+sSykL5GpPX3Zul04pdGnGwd9UkkdjLP7FSdQbgHcFXFwb OSvAYPrmBjUpB+ILH5FNQxMDIBgUDi61XSJgkOie0CnARdD0FKY0plxxkxgLQYjQFfyW2Fm5y8velvTB 0dm3J6UJ9oCcgVwzNZ73y9RwqU60k1w/a7Gj97g5n7 [file] ICAgICAgICAgICAgICAgICAgICAgICAgICAgICAgICAgICAgICAgICAgICAgICAgICAgICAgICAgICAg FHHkMNDxMKSgTEFxAEUcJDQsQCWuFYAaXVKkOP0AIXHyYGEhOYInDWZnSDSoQSYeRHLeOAXnHBQfQBSw ICAgICAgICAgICAgICAgICAgICAgICAgICAgICAgIC TsRVZlJTEuEBAwRSEiDOXqXLRhXJZyPGMcZRXaJSFxEFVoXOInAK7XGAZyDMGmYXXdSNNjHVTdIJUsUV AgICAgICAgICAgICAgICAgICAgICAgICAgICAgICAgICAgICAgICAgICAgICAgICAgICAgICAgICAgIC KeZFXjIKYpPUTdQZMcWAHfIPPzXM1HOKCgAJUoHDJs ICAgICAgICAgICAgICAgICAgICAgICAgICAgICAgICAgICAgICAgICAgICAgICAgICAgICAgICAgICAg YIShCYHlYRWkBULtVZEzBFXrMZOyMPZrSOAyHQJiHW3ZCZVmKGNgHHOqKKEcKZOvMZThEXQfDILwKKOw ICAgICAgICAgICAgICAgICAgICAgICAgICAgICAgIC CeORFuQBQdRWReZXAqIQCjSFAhTJAhHHJpXZScCMCiAMVsUILcGZCnUE6FRBWkOKQgVXHiYWWwWVWxYL AgICAgICAgICAgICAgICAgICAgICAgICAgICAgICAgICAgICAgICAgICAgICAgICAgICAgICAgICAgIC HwXECvPWHfZHMyEPIwVQTlODYuHWCaCF6BSYIeGEVc ICAgICAgICAgICAgICAgICAgICAgICAgICAgICAgICAgICAgICAgICAgICAgICAgICAgICAgICAgICAg PMFmFEPxIMTtVVGdYYZtFFMaYUMoNFWbCJOnCRWjSJPsPL2LLUZwTEDeMPXdTYIhGHJfFVOpZANmXCKb ICAgICAgICAgICAgICAgICAgICAgICAgICAgICAgIC MdAWJsGCUzVXRsIKTvDGMcLWTxAGVrAPVxHNXpNSLlCWZfYFCkZPBdUZCgBI7DNWQdEXHmGMApPYMzKO AgICAgICAgICAgICAgICAgICAgICAgICAgICAgICAgICAgICAgICAgICAgICAgICAgICAgICAgICAgIC YsRMQmSQWvQNPkEPQoFJAbRLNyKNKhSOFbGS1PAAPn ICAgICAgICAgICAgICAgICAgICAgICAgICAgICAgICAgICAgICAgICAgICAgICAgICAgICAgICAgICAg VHUmAPBhUAEiOVCgWTMqCZRrTJPxLMVuNZKdMGQoIUDbDGPyOZ7QUI05bELrt2R1MTMiFP9tebd/Pg0K DYzahtSzyHWvCP0WNpVySO1pkb6NLrEmXB7vrz4QBH ySEcIpA7J1tEFiODKvJKIICxTiW00vNKkvLw93LAujKXPgGrVmDWc5Jj6CVqTkO0voDCNqMtO2XUVqKf D8FXUtTgF9ZAEtFdVfJUqkRJ4Ao4HivEHoEVt+Kh1IKL2ay7OgNMvdDqZhDT6kzn1LFEuUNqUlH6Kcmo G0IWF3TUFhCl1TGMOkHAVayGHjPYIaDAJXQvCbI1Pd aF24DHWRWr5+GFwvxmPdRkeLFaG8FKZin3BiHOy4BR6TVWWhEBg5tMWsSKArG8Ydw6LxYd79FFMxHuku BxBeHTEIfVJ2OPyhVYVsDMVjEb0hGl3gLNNrRVZwDwGhGEAVDU0ANIZzRTHlgJBvVYYeFIPMGF0BHLqq UEQ5NZMeojWfvQAiKNpvSX2OPGDpffOhZmZmWSAPJH o+Qx5YOG8qs6ThKVrdZVOdXQ9sae0MPPaIEbZeF1E5uTMcM4L6KCffQj3FLEPjRZAeKzNhWIWSGKikHP 0OUS4pboI7PH1ZsQWsAGYjUGZpeQLnDPw6B50ooAFkMMlnOD4AZUX+Romie+Mu8DJWJoYIUyQYLdRzOwGJ DJOqOwW7RmI9QFe8MyW4XjPH99tNbrtrVqZTwqKW6X QO2oJXZdCFNVFS3GzWHhyX3ibmKtNzDzWVTQHiAxB81mmTCpOOPpEWKoOJUuTl8STDNmI1IrgkGdaUjp wwGmYXUoXESPSO3LKMbnusFsxRXqwOmrDX85pEdxRV8PIg1GGsQdPQ8fvu4ToYGdUg8EWVUuLx7UUWVx KCYcQOGsTKY5DBZkGkXfAEfsZHElPVGoZXL4FHGyJK JbDL9MDgAxNGVgLoRuJgdkDNGoEYUwes6AYKEuXMZmSLy8HvAfUYXfRNHoMQikGPPmICMdXLL9HHKzPV CwQD2DGaIvVBBfIKZ2ICwxRPBnUYFiww0DQGLfPOOeEjv8HxPrNJFlBKUvWWhyIFNmBPN0VcL2MLEjRB SnGT7FHjZbJJQaROR9QcEnRADmICOwci3SBPLrTIAz ZLS3CfLjOQArFUPiSEurGIRdUXL5DirbWGQePKOvPC2MGwFgVBXlPBvzATOsJAKfJUCbaj1DYFQvKVPs ENC9BNYvMGNkZIQuAHstJFUhXTP4SrGgFZSsNSJtGS7UIcGdWCQwKGN7QKOnCBJhSOLedq0CMUBwEUZm YRl6PrZoHOIyVJDkGOagFSWcSYHvLUzbZAWlUYAaYO 8AZbQsXOQpQsFtRvHqSJHnFJXamv0JZOVaMWNgJjW4FLEuIHNuQXVmIAjdBXNmEMLxHNQbEBAdZTZbTD 3KVsMnTMKaBeWtJSThHUKzBNQbgr5CIMIkDNVhYsL4YtEqIUOmJVJtJVpsBZUfBFVcJdH4JNMoLFWzFK 8SDaQaTDKiWcKkLDpeSLQjLUSdxs0HHJPvWDXlXUQ5 AMWgKVMgJMAzXAwsKAIhTOG8MnLaCXFsQEYkAE7TLtFbGRoqNSKVNbd5LKclZ7m1TWNuRm7JJ7Xvq5Gi QuCiQXZGHTnfCL4nmzWlUYWiOh0NY1aOFfusFNNfZuDyAOZ4AwBwWRM7DmKxEkEzKuYtWYGfDDjkLC5r CRFnAJGjJxF3VCn2EOP0FEA7QCXqWEDaKcWpKdZ0Da Y9AuGvEB5BCl3LKyY5ZFC8gOCnBg9GZwC3GAjUDdDkZX0PJIs= ID Date Data Source [id number] 10/06/2020 09:16:56 AM EDT [facility] Name Value Range Interpretation Code Description Data Negin rce(s) Supporting Document(s) ED Provider Note [facility] UKPIEv1sKuZQAmMj27/ZIHvuABXav1UeQSevZXz2OSywUGToU2ZoHVQ6lE2uBJK3ZWjORjVkTwTlMbW1 lbm [file] CF1YSHf= ID Date Data Source [id number] 10/04/2020 09:50:47 AM EDT [facility] Name Value Range Interpretation Code Description Data Negin rce(s) Supporting Document(s) Progress Note [facility] GXULLl1aVtWOIvYq68/MMIsuLHGty7KuWNdoXUk8VFwmJWKuU0UmNYI6qN1mRKF3GUrNOaXwQtKeSxUh lbm [file] FyXrX3XvBLg9CtWkTvUtOUBmPi1bPKQWTt6+XCuxqBJznGheLMIPTnK1Qng5YUbzLBSYXh7X ID Date Data Source [id number] 10/02/2020 03:09:13 PM EDT [facility] Name Value Range Interpretation Code Description Data Negin rce(s) Supporting Document(s) Consultation [facility] NWJTEi1yEnTDPhYy71/BTMuqJADwy6OgWPihAGf7HYtfNUEnU8CxPYX8eO5nYYR9IMtMImAwBjYwXzQf lbm [file] PpGsCJ2oCXCLOu2+EUdzmKGtyAryYQXUXpZhDoDpLHktKXHTOg9M ID Date Data Source [id number] 10/01/2020 08:00:21 PM EDT [facility] Name Value Range Interpretation Code Description Data Negin rce(s) Supporting Document(s) Progress Note [facility] IXCOFe8fAxQQDsRl66/YIYikEXJsp1UhYBsyJQp5HFscYFGxS4FvCJA3nS8pQOZ5FXiFApIsIhKsQeUb lbm [file] R6CjKlLKQpN7YvZf5qWWVYGm8+ULcijBBwfCatOARKXlZ6RdPCOoHsHB5HUVn= ID Date Data Source [id number] 09/22/2020 11:27:18 AM EDT [facility] Name Value Range Interpretation Code Description Data Negin rce(s) Supporting Document(s) Consultation [facility] NOOTOn4uSbLUYkRc23/UVKocWVWem8HdEPmdAQz3YBqtVQQvR3JmDHC8xT3hOMB6AJbFPsFrGsOjWtSw lbm [file] AgICAgICAgICAgICAgICAgICAgICAgICAgICAgICAg SXRfSGJdJEQpKHMsZXAgRTZcYBAoQFXxKNOhDRKiZDFtFBCeFPXpLWGsLQCiSP6QHNNrQPWvEFYoJENg ICAgICAgICAgICAgICAgICAgICAgICAgICAgICAgICAgICAgICAgICAgICAgICAgICAgICAgICAgICAg CACuSNSjZGIkIBVmATGyIDFkORBwNIPsRQBcCD9DTQ AgICAgICAgICAgICAgICAgICAgICAgICAgICAgICAgICAgICAgICAgICAgICAgICAgICAgICAgICAgIC MvSQOzUFInASTnYLCwUWHsLMStLUGuBTLvKIInUKLrSAUnAFZvDK5JHRDyTHZhLIYhBRQaTEBaNNSvSX AgICAgICAgICAgICAgICAgICAgICAgICAgICAgICAg NWAcJQVzENClZOPaCDQnQQShFYToNJRbBOAhCKZdWMJsODRlJJXaFJVjSSCzJBZmUM9VKYJgUMOmOEXm ICAgICAgICAgICAgICAgICAgICAgICAgICAgICAgICAgICAgICAgICAgICAgICAgICAgICAgICAgICAg ICAgICAgICAgICAgICAgICAgICAgICAgICAgICAgIA 0KICAgICAgICAgICAgICAgICAgICAgICAgICAgICAgICAgICAgICAgICAgICAgICAgICAgICAgICAgIC BwVSDySNDgAICnYDCxZEGtFSLqPKCsPYIyUBOiRVFfFUIjKLReQHTtQK4EIQJqYOUyXYGuTUYbXFOqOU AgICAgICAgICAgICAgICAgICAgICAgICAgICAgICAg MBEiNKHyEATgMOZlKMPfXDYxFPGyAPQsLODfYMYsNGZuLCJxGOXxSYOjBWOeCVSkYEGcAZ7UAHPrPJBx ICAgICAgICAgICAgICAgICAgICAgICAgICAgICAgICAgICAgICAgICAgICAgICAgICAgICAgICAgICAg ICAgICAgICAgICAgICAgICAgICAgICAgICAgICAgIC KhHK2CILIbRBYaIKAcVNIoZKLrPCKtNTVsYBJnDWQhFFDnPMNbJXGuKVWlUIYzSMEeOXLvCZGbYIFeYR OiSKZnJXMfEPEePJNxKTVuGJEkSNIyTSKvWZSsZJRuBCAtHNSwTWAcIALfKT1MHWFrHSUzZQUzKQSsBN AgICAgICAgICAgICAgICAgICAgICAgICAgICAgICAg FXJgDCOpBLEgUZBhEJDxSCOkMLWtDZJnWDYiUQTaTEOlLQBjDKWjYHXpUFPuPGIxRDGbKOHjKO3IYB78 eCOqj0S8CKHnTU8dsfc/Vy2BJMbqekHfaHBlCV1CMxOeQA0whh5RClArDY9wlu0YKEiQErSoR5J3cYPw HLFwNEENUtDiK16hWUiwVa67QYewMYSzNcBfIEr4Un 0FWfJaC4yqNDZnKmX1IGRnTnV5HLZuTqW2ZWUsPtMxMREjNWThDDPyCFCOVDQ3GDKdQdBfECzoSD9Kt4 UsxSU5KLf+Cl0LST0sx3BfNFwnTlJzTC6pgz2CQRtQCoEzT4BwlgK5UFAcEBIjXe2TEHBnVRCyrXVxPb HwXHPMRlPdN2XjuO42KUBDFw4+DQplbmRvYmoNCjMz QQCnx2IhZPy4FD7CTBLtTYd7sQMhA57vx9LykOLdUjetWjGbBWEoRNW8JScoglMyIUH5JMKPWYUduWY7 KvOuEqLzGpZtKIr8VMWrQU9aDTrmUV6JRUX4KUvgYVOsALCiN1bWXlMgHKTmGHBkvXpeVN8JNkMsN6Te cmVudCAzMiAwIFINCj4+SFoefhVpAqmJKxS7GEPae3 GoIKm2PR9JQIAxPVskTD8UDTOpyF0vSLnoMX1TPlXxUQAfRIGADzOfR93uwZQnDDr9G6DqIaGuFLLcIo lsZXMgPDwvTmFtZXMgWyBdDQogID4+ID4+VXrmZO1UDFyxejBfLESnRi3HSYQkMRUuCU0sQXXpATBbD9 E4aIxqHNNFEdMxL7zcalpjOP9aTZBfO864xNbgsiAa IBJaMMSkBc2YXMXfYPK0SFXitQSkXmLbETFFIMxbOZ5WuLOgSMU8hG3nJOcbEDDhIDItF8qYEpEmrFua KS84zDwoqgRctIDfUTc+Qa6AVH7en5TnZSu7hdFdWBgwXXD3JVprXACrIUViDTGgBZE6SCE2MDXYVyFp ITQcGMSgBXahNEVeNUCfcm9DZFCbXJWpTTDsFGPdZN McYXNsNCsmSYIlJGB9SFYqHHDdHLTzCU6OOtPjJKJeMCMqVOleUCPeTIXbhd3NMGIbGVWtTxNfDHFgUQ KuDJZvGRbaYLXgCFHoCaP5NLIqJPWaOA4XAzOcYHXfZGsqXUhgHWIoYCYgyn7QYWWjIVHsWhJrMnEfMC QdMHPiRNprQIEqHBCtVIK0LXJeCTCdSU0PToMgPZUj OBFmOiuyISLxIUAwos0OOGUpUNVdEkDdSASzHUFsYJAqLXsgZTWmIVUrFsT0BPWrCSPvTS6QIuPkOVEt IQC8BOJcNTJuTRAdap9FMGBeGHFfPFh0ZlWsCGNvZIUpNAqpDAAoMJY1CNW5IVYyYOLqLB4LGoNnTDJc GFq6CeUzWUVlADTvvg9DYGNoGBNnJSufTTAlXJJhKQ EiHQvjEIHdOBV2CMH7LCFcVBIhUG5RDdIaNQEuREyqTKBgGGToGTDlrk9VMZNnBDXkITS6EDPoXOQwKJ MaVKcpDIVjYPSpHurfRLOoJVFhOA2SUsClDJNiLyR6XGciKSYoTCTybz2FICSiCNPlWNEcNSJgARShQM GvIGdgFGSyYYVlAjR1XFRoQVFhPY1IZvYqSUPtMrG5 GMjoVHMnAINnyq8OSZVyGWLzHcF8TJMdBYVxEQFtRRxmXTRjJDNvYCCwEPXpPMBoMV4AZyUsEJAjPbK9 ACNzLSCoDXDspe6UDTFiVUUbQxq1ZWEaNOHdQUUiZJoeFXMjYUT7CZs8EFTqWWSgZA8HFsGvZZPbFmB9 RWPmKOVcNPIyeo9NCBNpRVCoSJs9QAWeNJVaWZTaSC wqRQJiOZA0ZRX2NHCiHIXaQV3DJuBkXCMtGkSaKXNkXBBmJZHmoo4BnSAkyNvgbc4DINkILw1LvXsiTF U6ZCbeTf7byHPwVNUrVJODBd5WbfRxKQRyITORIMtuOTHiCVAjYuCfBIJaRWDgWQJySIJwBFGeRFL5FA ElHOM0OwwvYrP4ROZ8RIS2ELR9QkRjOgOuB9O5QiKn FwOjJHW1CxKoDUT+KS8zGCv+Oi4Jt9LfkzS3cbCnTIlrUoV0Lc6VHRZCX1SPQo== ID Date Data Source [id number] 09/21/2020 01:47:34 PM EDT [facility] MR BRAIN WITH CONTRAST [id number] RESULT Interpreted by:Pa De Oliveira MD09/21/2020 7:56 AM MR BRAIN WITH CONTRAST [id number] CLINICAL INFORMATION: brain metsADDITIONAL CLINICAL INFORMATION: None. COMPARISON: None. PROCEDURE : Multiple MR sequences in multiple planes without and with administration of IV contrast.The amount of contrast material used was recorded in the RIS and this information can be retrieved from there.FINDINGS: Enhancing lesion is noted in bilateral cerebellar hemispheres as well as in the left anterior frontal and left high frontal regions. Enhancing mass lesion is noted in the left cavernous sinus along the left trigeminal nerve. A subtle lesion is also noted along the left frontal operculum.IMPRESSION: 1. Several brain metastasis2. Enhancing mass lesion along the course of left trigeminal nerve may represent metastasis versus perineural spread. Less likely differential may include schwannoma.END OF IMPRESSION: This document has been electronically signed by Pa De Oliveira MD on 09/21/2020 1:45 PM Name Value Range Interpretation Code Description Data Negin rce(s) Supporting Document(s) ID Date Data Source [id number] 09/21/2020 10:37:12 AM EDT [facility] Name Value Range Interpretation Code Description Data Negin rce(s) Supporting Document(s) Progress Note [facility] QBOQYe8nVsOXRqBv27/ODCxsDYAcg7UcZLeaRVl2EMhjYELeD6UqVNC0hR0pBUE9MXyOZvMkKpDfMmDf m [file] XcEYf4Ujd3GWmpDUXWUq4F ID Date Data Source [id number] 09/21/2020 09:57:50 AM EDT [facility] Name Value Range Interpretation Code Description Data Negin rce(s) Supporting Document(s) Operative Note [facility] QHKMDf6gXcQATuAp82/GDLrnMISjs1ZaOEbvTCd5ZPndDLXzM8UtAQA6sR3eVCY4UCpSGgDaNeBvRkAp lbm PqAanDCfDtYXMtSnjLYeSdHGroUwiebVApFG8TiRS1TCNiS28sVOBeBHNdY7NbGBI9KnN+Ox8VIZKkpW GrKC4TItoP4R6sr1fSDx3saM3TVeXhHnECgdStv7rpSX5v73ooAjsjGgZInudRmgSVvrpyG/EiaSbrz1 owmrf1gw/flTKyx9Di+PQ97OhV/PenaAWeZVli/v/i 1yCSonsr/vFOAJ7ilOJbi0/ZQ+QFaYVWULyQ/bcC205c1bDfmLPQmu8nFcbRVpT7VgUaGc580X64lF6m hai532RkPhooIWpliBYXx6v81KFTv6nlP+ul8aG8snh3McAMnO7KwBSucFIxS7m2y+ipvQGgKD4Aq6Dj p21VPYd6rEKt9OYxH4TEZIij5hC7gKjubu3u17tnuv uz2kxk4ou7TP4nUwYSvL17wdD5hDGpUCdNQJkDXvpgfkrAu57NbwDnqX12TerkNNUlfGvP4L7EjIiHoH bLP+FzLaXrzGnGkFsMupZTtrywxIbJghdScHJ7kTZzkUst4NR3F5tj+qZh2FySnYpkokMOwUvvvizD/Z jMzcCfK8+cRSKX4Hb7b0t9qIjMzB1uMA0I/S9ODH7m /l+Ge0iH1OsRLczLFX5o3+sWquerqTxm7WSJJoXV8h/RteHJue8UC6yNmbOLsYUFK8KvtZ5yIx3bAu+e O4g5lAnPelBQl/GqZF/xKpcIMf1SqAvZi4h9GX8fbAGAtkHaZ/Fm/YW3pgbtsq/ePp8gpW+ffmi/Pz4V p//HjcxeC87vWXc0A1L0Tl1ZiYKd59PaLSzbj6tz53 UtV1y9+Rajiv+CJoyxtQWkAVUbAd3HNVTd0T5HUUFbgUoSFAQ9zXVgAj4WxpfDYdtBMdaDYeKDJDCTWtrK8 [file] DQo= ID Date Data Source [id number] 09/21/2020 09:06:40 AM EDT [facility] Name Value Range Interpretation Code Description Data Negin rce(s) Supporting Document(s) Operative Note [facility] OHVIVt7zRmNTRrGb39/GWGxmTIVtt4WfQKihLTj4XXtpXAUmB0NoAFP0rV2uWNX4ZNeUIaOkIkUsLqCa lbm [file] ID Date Data Source [id number] 09/21/2020 05:41:18 AM EDT [facility] Name Value Range Interpretation Code Description Data Negin rce(s) Supporting Document(s) History and Physical [facility] QNZVBq1sTaCAIwAk98/DNIgrUIAxe8TqVJzgZWg7UBegCBJkJ3QgDEA5pW6kMKW4UGfFZbUzOlFeUtKq lbm [file] ICAgICAgICAgICAgICAgICAgICAgICAgICAgICAgICAgICAgICAgICAgICAgICAgICAgICAgICAgICAg ICAgICAgICAgICAgICAgICAgICAgICAgICAgICAgDQogICAgICAgICAgICAgICAgICAgICAgICAgICAg ICAgICAgICAgICAgICAgICAgICAgICAgICAgICAgIC AgICAgICAgICAgICAgICAgICAgICAgICAgICAgICAgICAgICAgICAgDQogICAgICAgICAgICAgICAgIC AgICAgICAgICAgICAgICAgICAgICAgICAgICAgICAgICAgICAgICAgICAgICAgICAgICAgICAgICAgIC AgICAgICAgICAgICAgICAgICAgICAgDQogICAgICAg ICAgICAgICAgICAgICAgICAgICAgICAgICAgICAgICAgICAgICAgICAgICAgICAgICAgICAgICAgICAg ICAgICAgICAgICAgICAgICAgICAgICAgICAgICAgICAgDQogICAgICAgICAgICAgICAgICAgICAgICAg ICAgICAgICAgICAgICAgICAgICAgICAgICAgICAgIC AgICAgICAgICAgICAgICAgICAgICAgICAgICAgICAgICAgICAgICAgICAgDQogICAgICAgICAgICAgIC AgICAgICAgICAgICAgICAgICAgICAgICAgICAgICAgICAgICAgICAgICAgICAgICAgICAgICAgICAgIC AgICAgICAgICAgICAgICAgICAgICAgICAgDQogICAg ICAgICAgICAgICAgICAgICAgICAgICAgICAgICAgICAgICAgICAgICAgICAgICAgICAgICAgICAgICAg ICAgICAgICAgICAgICAgICAgICAgICAgICAgICAgICAgICAgDQogICAgICAgICAgICAgICAgICAgICAg ICAgICAgICAgICAgICAgICAgICAgICAgICAgICAgIC AgICAgICAgICAgICAgICAgICAgICAgICAgICAgICAgICAgICAgICAgICAgICAgDQogICAgICAgICAgIC AgICAgICAgICAgICAgICAgICAgICAgICAgICAgICAgICAgICAgICAgICAgICAgICAgICAgICAgICAgIC AgICAgICAgICAgICAgICAgICAgICAgICAgICAgDQog ICAgICAgICAgICAgICAgICAgICAgICAgICAgICAgICAgICAgICAgICAgICAgICAgICAgICAgICAgICAg RJXqGQIlIIQtQYEfGWNlYRAkVHNrHVEaCUNfRXSgJXTfHBGuITVsQMb5W7bhOMOcLKOwSO9wVUg9Og9+ BGtPCeExVAY4vjNerI4YZL1ol1JfICuhUDCqh4FsNE n5BW0XYJIzEXzeZZ1YFVqtfq7BPJVqXRFrfLUIi4lyEdTtFYA9UCNsEqdtZN8KINGeR0twyfEzVWRaTH MEJSjgFFUYKD6DWkKzY4GgdA92IUWUHj3+FGopllZxPtzSZvD4SDWpd4XgGGz9BQ1TBZWwElvcn9VgZO oiPTEYITaqWK8YKUR7DQP2ZPZnSu1OODTmW430wuYl OD2AVv9FAcSaPP1ylb9NNDniDJBnHrkDFcq0OIvvIA5EwHYfSDcZGcFeUmawW2BuwLXwTNJoPUZokHuv HRQrIOVwFp2zUL5tHDWtSSI9ZxOgAHDKQR7PUYDqQBOirFNoUNMgWSCJNS8BFYlvUBY1IIKwydUpjISo KZakRR2PYHLvyyTvUSWsVCDXIHj+Vh1FFO7mu9ZqKL frSYQuFQ0dkl2KQYdATqIkH7S4bIRiO9U2TNbyEk3HXDEhXFVuMYFdWKXBBAnkQW0TBC0zycX2JN2LhX JpAHTjKVEhmRIcSHh8D92ptIAkFYpfBR5RJYA+Romie+Vt1QHQLaIWEbULMtChFqEUVFLtWoU2PhT1FFl4 LqS0MpNK28tGhogtNePVvbDB6AQG5hALObRZOOPY2Q eTOnkJ2wumDwGkBmMSLDCfDoE70mvOLsDIZwYYS7YFXiTm0XFLYkO4XctwHoeTujitFeQZAhTSTWRA6M ZZmwdhCmaNTycArvZE28eSgzXC8DMf7VDtUeKD5pmh7ZnAQjKs2MCBVdDA5JRYUbZRMfQUTcSZS1PNBc ScSwEWddRHShYRYxXNN8RIVsZWEtBG0IAwAxAAWhAI gfLLdlLUFnLDXzzf8IPFCiISUaMWdbKRVoFWSzABOvKSbyBAKxFHSvOPB3RMIyUTLwNO3FVgFaTHObBK N6WgFrOKLeRGVwzc9OKLEeNZWbHlb5QKYfTKSlPQUyDCztTKMjSFI9FdZ7RSFmBTInRE2EOpAoLYGkEE A3CPilZKTbWDDtnp0DOXVuCXCtSiF7QKJbQMIsZCVe QUjsFXZxOAG3UJJ4YCUjXSXrYQ9MMeHvBSLfJIT3VJOfGXHsPDUhfi6JKAIvSCPvVqfpHSUlFNNrNDNs LHzpLEVxBND1KBJ5EFVsZVXbDE3XFlKjSWZcQPpsJUUfXCGjMAVssg9CXCTmNMDiCIR8MGEqONBsJMKr OFpsKAFwRJM2BGLbHSYaKOQiGC9NGcVzTTObXPJlJG QwKIBsOVEwjk6HFFTxUDEfYCA6EHSmVCAgNFNwLDa6guRalVRvZRj9MK2HT0RdmxTsCNdNXt1Hi958BV L6FNMrNy8CP1yeAj7nEGLgNUBHYb1EFJr9WXE7Gfz5S4VjFFN2InVvG0NkE3JcITcrYuZ7TKUrFwL+ID l0HAkoZaxzT6OmWnibLHP1I2I3OUQtQHVbOoegXEN2 SZ3eEGSRKg8+WGiakNPnaTzcKMYLOcFyCuo1ODaqEETULu7G ID Date Data Source [id number] 09/20/2020 10:16:00 AM EDT [facility] ([facility]) Name Value Range Interpretation Code Description Data Negin rce(s) Supporting Document(s) Carcinoembryonic Ag [Mass/volume] in Serum or Plasma 8.2 ng/mL [facility] THE CEA ASSAY IS PERFORMED ON THE Secured MailAUR BY CHEMILUMINESCENCE AND SHOULD NOT BE COMPARED INTERCHANGEABLY WITH OTHER METHODS. IT SHOULD NOT BE USED ALONE A SCREENING TEST OR DIAGNOSIS FOR THE PRESENCE OR ABSENCE OF MALIGNANT DISEASE. PREDICTIONS OF DISEASE RECURRENCE SHOULD NOT BE BASED SOLELY ON VALUES OBTAINED FROM SERIAL PATIENT SERUM VALUES. ID Date Data Source [id number] 09/20/2020 10:16:00 AM EDT [facility] Name Value Range Interpretation Code Description Data Negin rce(s) Supporting Document(s) Glucose, Fasting 110 mg/dL 70-100 [facility] ([facility]) Blood Urea Nitrogen 9 mg/dL 7-18 [facility] ([facility]) Creatinine For GFR 0.70 mg/dL 0.70-1.30 [facility] ([facility]) Sodium Level 131 meq/L 136-145 [facility] ([facility]) Glomerular Filtration Rate Laboratory test result [facility] ([facility]) <content>Units are mL/min/1.73 m2</content>
<content></content>
<content>Chronic Kidney Disease Staging per NKF:</content>
<content></content>
<content>Stage I & II GFR >=60 Normal to Mildly Decreased</content>
<content>Stage III GFR 30- 59 Moderately Decreased</content>
<content>Stage IV GFR 15-29 Severely Decreased</content>
<content>Stage V GFR <15 Very Little GFR Left</content>
<content>ESRD GFR <15 on PIPE CLE[employer]ACHINE [employer]PERATOR</content>
<content></content> Potassium Serum 4.1 meq/L 3.5-5.1 [facility] ([facility]) Chloride Level 97 meq/L 98-107 [facility] ([facility]) Carbon Dioxide Level 28 meq/L 21-32 [facility] ([facility]) Calcium Level 8.9 mg/dL 8.8-10.2 [facility] ([facility]) Anion Gap 6 meq/L 8-16 [facility] ([place] [facility] Alt/SGPT 21 U/L 12-78 [facility] ([place] [facility]) Ast/Sgot 15 U/L 7-37 [facility] ([place] [facility]) Alkaline Phosphatase 126 U/L 45-117 [facility] ([facility]) Bilirubin,Total 0.7 mg/dL 0.2-1.0 [facility] ([facility]) Albumin 3.8 GM/DL 3.2-5.2 [facility] ([place] [facility]) Total Protein 7.2 GM/DL 6.4-8.2 [facility] ([facility]) Albumin/Globulin Ratio 1.1 [facility] ([facility]) ID Date Data Source [id number] 09/20/2020 10:16:00 AM EDT [facility] ([facility]) Name Value Range Interpretation Code Description Data Negin rce(s) Supporting Document(s) Prothrombin Time 12.2 s 12.5-14.3 [facility] Inr 0.89 [facility] ([place] [facility] THERAPUTIC HUMAN INR VALUES INDICATIONS NORMAL RANGES PROPHYLAXIS/TREATMENT OF: VENOUS THROMBOSIS 2.0-3.0 PULMONARY EMBOLISM 2.0-3.0 PREVENTION OF SYSTEMIC EMBOLISM FROM: TISSUE HEART VALVES 2.0-3.0 ACUTE MYOCARDIAL INFARCTION 2.0-3.0 VALVULAR HEART DISEASE 2.0-3.0 ATRIAL FIBRILLATION 2.0-3.0 MECHANICAL VALVES(HIGH RISK) 2.5-3.5 RECURRENT MYOCARDIAL INFARCTION 2.5-3.5 Partial Thromboplastin Time 26.8 s 24.2-38.5 [facility] ([facility]) ID Date Data Source [id number] 09/20/2020 10:16:00 AM EDT [facility] ([facility]) Name Value Range Interpretation Code Description Data Negin rce(s) Supporting Document(s) Red Blood Count 5.04 10 4.30-6.10 [facility] ([facility]) Hemoglobin 15.8 g/dL 13.5-17.5 [facility] White Blood Count 11.0 10 4.0-10.0 [facility] ([facility]) Hematocrit 46.4 % 42.0-52.0 [facility] Mean Corpuscular Volume 92.1 fl 80.0-96.0 [facility] ([facility]) Mean Corpuscular Hemoglobin 31.3 pg 27.0-33.0 [facility] ([facility]) Red Cell Distribution Width 12.1 % 11.5-14.5 [facility] ([facility]) Mean Corpuscular HGB Conc 34.1 g/dL 32.0-36.5 [facility] ([facility]) Neutrophils % 79.2 % 36.0-66.0 [facility] ([facility]) Platelet Count, Automated 222 10 150-450 [facility] ([facility]) Cache % 9.7 % 2.0-8.0 [facility]) Eos % 0.8 % 0.0-3.0 [facility]) Lymph % 9.2 % 24.0-44.0 [facility]) Baso % 0.3 % 0.0-1.0 [facility]) Immature Granulocyte % 0.8 % 0-3.0 [facility] ([facility]) Nucleated Red Blood Cell % 0.0 % 0-0 [facility] ([facility]) Neutrophils # 8.7 10 1.5-8.5 [facility] Eos # 0.1 10 0.0-0.5 [facility] ([place] [facility]) Cache # 1.1 10 0.0-0.8 [facility] ([place] [facility]) Lymph # 1.0 10 1.5-5.0 [facility] [facility]) Baso # 0.0 10 0.0-0.2 [facility] ([place] [facility]) ID Date Data Source [id number] 09/16/2020 12:45:17 PM EDT [facility] Name Value Range Interpretation Code Description Data Negin rce(s) Supporting Document(s) Discharge Summary [facility] YDWQIf1nTqXSRiNj92/NXTnxISUje2TtNAayAOf2IYomPCEkS1EfCJX2eN3zKGQ6IVeVZsIsUxDdHaM1 lbm FfQrsPJoLyHUYjGyyGNjDsBUuaCpxolXNdXM1UyUJ1JWYxA62iFUGzSCRaE6UvVQU4EAW+Ae2FISYwiL BbUV9YHjxK4M0hessCIq9cCX+hbEzSRvRM9ueBHoq8adoDT12tMISNfGLGRPGLovoFeOQ4fgcZ9P8rAl 2oBrcU9h60VjtxDeQ89mtpRlKV/u+/QuJ7siAU1A/6 6gWmuJyLv/2F5UQbvvnDp1ZMpI4h3QjeuuZs2HDf3vZ5Utx/qryOn9kRWCxcmnswgPkOeqhZXgy/LC5+ S3HuvtrQTTrVECBloqXvfbzuN5iDrojz+poPzaacgE/CBMLn47BlfLzQM7rv581v2Y775gCnKBnmFBNS 3bflUbgVzpSBFgvAXTyJ4JKtP++RLZmqFQUPZ5N86z aNociZNe7e3VUPIkWM4HdOgxaQiugV5gkGK42Jcbs85s9QmNPD7ppJmtyQTdyUBTO+PfNciirNGDA22O m3iJPW9XiwYBFfrmRsCuSN+Ru5jZx6matpzwhOYdooVBxlr5dkreJgzoSlhpu1a4xhWvVcMGSH+1ilZu FfyrQZu6nSOf4yhS3Cc4nD2l7vTFtYr+Ungq/E/diego [file] ICAgICAgICAgICAgICAgICAgICAgICAgICAgICAgIC AgICAgICAgICAgICANCiAgICAgICAgICAgICAgICAgICAgICAgICAgICAgICAgICAgICAgICAgICAgIC AgICAgICAgICAgICAgICAgICAgICAgICAgICAgICAgICAgICAgICAgICAgICAgICAgICAgICANCiAgIC AgICAgICAgICAgICAgICAgICAgICAgICAgICAgICAg ICAgICAgICAgICAgICAgICAgICAgICAgICAgICAgICAgICAgICAgICAgICAgICAgICAgICAgICAgICAg ICAgICANCiAgICAgICAgICAgICAgICAgICAgICAgICAgICAgICAgICAgICAgICAgICAgICAgICAgICAg ICAgICAgICAgICAgICAgICAgICAgICAgICAgICAgIC AgICAgICAgICAgICAgICANCiAgICAgICAgICAgICAgICAgICAgICAgICAgICAgICAgICAgICAgICAgIC AgICAgICAgICAgICAgICAgICAgICAgICAgICAgICAgICAgICAgICAgICAgICAgICAgICAgICAgICANCi AgICAgICAgICAgICAgICAgICAgICAgICAgICAgICAg ICAgICAgICAgICAgICAgICAgICAgICAgICAgICAgICAgICAgICAgICAgICAgICAgICAgICAgICAgICAg ICAgICAgICANCiAgICAgICAgICAgICAgICAgICAgICAgICAgICAgICAgICAgICAgICAgICAgICAgICAg ICAgICAgICAgICAgICAgICAgICAgICAgICAgICAgIC AgICAgICAgICAgICAgICAgICANCiAgICAgICAgICAgICAgICAgICAgICAgICAgICAgICAgICAgICAgIC AgICAgICAgICAgICAgICAgICAgICAgICAgICAgICAgICAgICAgICAgICAgICAgICAgICAgICAgICAgIC ANCiAgICAgICAgICAgICAgICAgICAgICAgICAgICAg ICAgICAgICAgICAgICAgICAgICAgICAgICAgICAgICAgICAgICAgICAgICAgICAgICAgICAgICAgICAg ICAgICAgICAgICANCiAgICAgICAgICAgICAgICAgICAgICAgICAgICAgICAgICAgICAgICAgICAgICAg ICAgICAgICAgICAgICAgICAgICAgICAgICAgICAgIC AgICAgICAgICAgICAgICAgICAgICANCjw/dTHtW2kweRCijnR0L9opGq5YWn4BCU4oj5BzPHFtTRayzn UkLbvJRgHxVZWlStuPHkj7VSzvQH0XfZKcA9HdI0WqFXokRU9SQRTgGMTicJVgRFKbCEQcUnG9ISTjQF plSJ2KlLKwRHedGVStDGWgVcXnVMGoFLMeOAUwTFVi DEOBPPFwNVUpGdTeUYUqTHXxNI6VYWWmB909tvTwQt6QEt2NZdDmTW4myt8BLfIrNCRjDmbIUgj4UWfs KB3SlNQghUSlFiAaWEBBUsDrB0qsu5FsBdUgNUXKTOfvEG9Tl3IpuLAgBFz+Zq3SUC6dc7GgMWalBnPa TC5vli5UTJoJFkNoL4JvzLvdRFOwy9VqGWYnHHVXfT 2uESC1EGE2ZMighACaMJ5vIUxbV7TchF3dYuGQkg2gVQ4RLEP1HKPsEpOwSxVgEIAgVxpvKVMYHGpJUb CsQ1Reh3ShZvI5KZFnJkGfJVcjXZJsKmV5NA73cWwtJJ4YBZGzTQVeGF64XNB4PYAsIp2JAb4KKoMrVI 6qce6ZUqlzZYYeBieNJcb6OZhqRB6HcMRuD1LajSPp m2fSNeZaM8QVNXJmQKGqBa8FKUMmQePfPHZzDXufAP2gDLCoCGUJqRacdnK6JL2DMR4kusVgYS8HQnJv Hb0eGu7ZSiEdK6YpP1JpFIKkPXUZGChbCC6XBUcdRT1xYK6Qs6VEbZSxgN4ybk7JYUIeZTKfOietys6E LcpvX5Z1xOuoBJOmXvCxJKXUIPquJW9UDKRvQXH2ST JuEGKwOFZFRmNsL88uDM2QT7Zbl11wDqA6SJVvHxFzCOobZN14qWgoqkPtfEMzuLcqQY1PRe1+DQplbm BsJqzDHzfaAOUHLtDdXceLNwUqPSNzLFQhLMIzNjS4DnEjSz7QDZXeDUTfWBSrQiEgOYSvSJNmZAevYY CsLEBrRlMhMIFfQBYzYK8FIoYiKIHjEqXvTiLqXFZj CHOfia3BIZZvDGEyKZL2HdClTWFgWCXtVFpsXODoLAYwXNm4ZRFbKYLnTB2SHzEpZVZoRDKiCSIvJWAh PWBfjs4REOUkMCUiKUr2YxPrCBJyLBTxVQrwJGHtBNK7JFwiBVGyZGCkOZ1ZQdHnIROlBGN1WYDsIRDs XVCwjx2PMRItKYUdQROqLBKqMCHiIISyNOzgLDFmUU O9AAabSTTtJMZlOO7XSbVfJGVuRRn8KYgbCWNiZGTxgb2MPZMbRBLwDXd2LQHqAEGyFDOcBTuxGFMcCE PcOQE1LVJrCSPxXV1HKrFdSQReGmE8WlstXHDwRNVrji2QSQWsMHSaBqOiXxNwOVJxPIKaFUwgVCAvCY KmEGjpSGZpCYSgWW9YYfPlKQWaGzTxLNEaRXRsQSMx or1IDRUfLMJlCoU5LmCeEEMqDGRxZLutWYYpGRJ0MMQqQROsZXYtAK3XAiDeWYAcSwN2FrSwXGQxXKKp pw4GMHPeKTNmHYprPuCrYYDnYXFbBTkhHPIwYLL7QvuwCGUjKJOaWV4BHzHpLYFqOdH4GhnoPIKzGHPl ni7ZQSRfDXHxOuV5UtXeIPOkKKEnWAveNHNlIAD3WY ViKAMfSZEcCQ8DNbJaRWVpDctvUvYlHBYqNSWwxo0BWDUlTXLpEnTeEjJxNZLoAOTjGZvtLVUzFWAbHk rgFSNtOEPvPE2DPdTgAUVqEkV0QUBsPNLzDXIvqx4PJCTtQBNpHnhuSyUuVZWhRDPwLSlhQAWtOOUmLY AbEMNwXJBjTY3MFpJqCUVaDlPpDHsiTZGcNLDwbf5N VWAlXQNgHapgDgJvSSZaNWKoSLjoEAJrXGA3RQjpBEBgIYAiZJ8RXgDeHLFvEpGnHaZeMYArQZQlkl5M DHApRUGeIWAmCULgHLNqAEZbJFp3vnXhuHEzCSc4PO1ZU6RlngHbJltDOp5Wr099DKD1EUTtBo9EP7eh Cn1iLVDjDJCFKe0UFMh9XtSfOFYzVyYhHaL4S4JgNN Z8THy4QAOnGrOgZdOmWIG+NKbaSUShIEXbYQW6NOheE9DjFiLcZGWtXrKhQiGkSHVkWr4iXYOEWv3+DQ yqfHAevUqyDCVYDyX7KkP5LEuwPFBLFv6V ID Date Data Source [id number] 09/15/2020 09:34:42 AM EDT [facility] Name Value Range Interpretation Code Description Data Negin rce(s) Supporting Document(s) ED Provider Note [facility] DTQVFt3nLzVEUuWr47/KLPhwBAUfo6DzQNgqMMo6BNzzINRoX5CjXRV5rX5yPQF5FZjAOmItAeZuXgG0 lbm [file] UyNDQ+IX1gKHl+Tg3Ll0GycdX3ngSrJKl6GXJ6Vk3XIWBOF7RRQf== ID Date Data Source [id number] 09/13/2020 12:44:16 PM EDT [facility] IR G-J TUBE INSERTION CHANGE REMOVALFINA L RESULTInterpreted by:ANAM KulkarniROCEDURE: Percutaneous Gastrostomy Tube Placement.HISTORY: 64 year male referred for gastrostomy tube placement for feeding.TECHNIQUE:Attending physician: Lowell Landers M.D.Sedation: Versed 1 mg IV, fentanyl 50 mg IV, sedation 15 minutesAdditional Medications:1 mg IV glucagon, Kefzol 2 g IVFluoroscopy time 5.1 minute(s), radiation dose 48.9 mGy.Prior to the start of the procedure a "Timeout" was called, confirming the patient by name, medical record number and date of , and the procedure to be performed was confirmed. All procedural staff within the room are in agreement.PROCEDURE/FINDINGS:Prior to the procedure, the liver margin was marked on the skin using ultrasound for guidance. The patient was positioned supine and the upper abdomen was prepped and draped in sterile fashion. The stomach was insufflated with air via a nasogastric tube. Moss Picker image demonstrated visualization of transverse and splenic colon. The cutaneous tract was numbed with 2% lidocaine. Fluoroscopic guidance was used to place 2 T fastener sutures into the gastric lumen, using a small amount of contrast to confirm rugal folds and intraluminal position, with subsequent pexy of the anterior gastric wall to the anterior abdominal wall. Between these pexy sutures, an incision was made and a needle was used to access the gastric lumen and place a stiff guide wire. Following this, serial dilatation was used to place a peel away sheath and finally placement of an 18 [place] percutaneous gastrostomy tube. The wire and sheath were removed and the retention balloon was filled with 9 mL of normal saline and contrast mixture. Contrast injection confirms the tube tip within the gastric lumen. The tube was secured to the skin using a retention disc. A dry sterile dressing was applied at the skin entry site. The gastrostomy tube may be used after 6 hours. The patient tolerated the procedure well without immediate complication.IMPRESSION:1. Fluoroscopically guided 18 [place] percutaneous gastrostomy tube placement.2. The G-tube may be used 6 hrs after initial placement.3. Follow-up after 2 weeks for T-fastener removal.This document has been electronically signed by Lowell Landers MD on 09/13/2020 12:42 PM Name Value Range Interpretation Code Description Data Negin rce(s) Supporting Document(s) ID Date Data Source [id number] 09/13/2020 08:18:28 AM [facility] Name Value Range Interpretation Code Description Data [facility] rce(s) Supporting Document(s) History and Physical [facility] KPFGPn8iFwXVPlMi75/HOZzdUAHmr8DfCHpeZFj1ATiuNQRcI5RyJIZ0kV8tOTB1VLdHHwFcYbEeZtPj lbm VaLvpCMcStXRVaFseJXcTlBKmvNfykpMUaZF1OyZI4EZAgS43cAAUlSOKrM7HfYQMhTxG+Fn5WYBAngM VzHV3AYadQ0AbsMgFK5pnZ7g4xdzTl3nQ3ZK8Zw5lIwAQIhGu7oOqjQmapx6pb5Wiogydf3J598um7cy hudpjWM6BHjPzuv2ea684UgmKF/EaWGd4WECIU5/qr jruNk6b//5XztyOmZ5C/OM5VWjj8vUuq2D7Pe7uykKWGHvkD3ZhnYd1Oep8Ulq+aE2pWjjN1ShwFYSI1 zqohFvYzHayiNVGxyDBW1nDnVoKztdF8xou6WmPTuN8SHEIVBuXkzp05C7CfSNlVn3Sd6kYQeE0IGMr+ BCEmAY+wXXgOcJKJDijkYX67v+YkfSyhEuxGysEg5N qPrmMwuHtxV4rBC2fJgIihM3okMmMyhKwhmVeKg5FxlMX4PMReQxwx96ad+2itz2Jt4oSyvoKZAPkw9c xoadAJlZwSEo1kT3b2opFE/aRROE/JSThbTJPg/i4aL+8vgpaOtFnNHoohQ8rmgASIBqcR6AakMCSC+s WcxMxgLY7u/hUVbTYbE28Afj5+z8NklB4gsPCHWCW3 ak/CJZac6axbk3jRVN47LUs4cl74n5lvg2rmXSdR7l3Lg9BUkkZcwNm1MUk1ghwn912PAPfYJjPYzw5V MUvMojOaELJkyMZafoQmaSPTuK6twAPoMuRVxI8FLAbX36sMn4/W/dDrk/8rBF2w9tDhoB00I1D9huL2 MVIJ5JOjMPM4kKItK8Iyokx7K3tIUiuig4LVYr76df 4sCTPcjAalXeDHYjeCOOzprdH6V8QvGqR6TMFMOdC57AckYZSmENvBTALoMARvl9IIoBrzg8PlTLdBTf xwUNfR34lhnl4IWAuGGzqFjZmkqKST3GT5diTwImSj+cLjtLHwJ6312S0E1ztbs4Z8SEfrjg/IZe/k/P i83yM/ey2QhxxnLiwfgjulomasxdICzKFvlqXIWl1+ [file] FsE4EgDiBCMkXrDnRkMfZwUjEYNvYK2wMIKNDp8+CHzweBJdyYsdACPPCyB6XSX8XBkdPONZDv1F ID Date Data Source [id number] 09/13/2020 08:15:23 AM EDT [facility] Name Value Range Interpretation Code Description Data Negin rce(s) Supporting Document(s) Consultation [facility] ASUWQf4bHoWJDyVr29/NEOfbDVKqo2HiVQqcNNl6DVroTHEgP6JeYHU9qB3bLTA4AUkXMqWcNhBvJhYl lbm [file] AgICAgICAgICAgICAgICAgICAgICAgICAgICAgICAgICAgICAgICAgICAgICAgICAgICAgICAgICAgIC AgICANCiAgICAgICAgICAgICAgICAgICAgICAgICAg ICAgICAgICAgICAgICAgICAgICAgICAgICAgICAgICAgICAgICAgICAgICAgICAgICAgICAgICAgICAg ICAgICAgICAgICAgICANCiAgICAgICAgICAgICAgICAgICAgICAgICAgICAgICAgICAgICAgICAgICAg ICAgICAgICAgICAgICAgICAgICAgICAgICAgICAgIC AgICAgICAgICAgICAgICAgICAgICAgICANCiAgICAgICAgICAgICAgICAgICAgICAgICAgICAgICAgIC AgICAgICAgICAgICAgICAgICAgICAgICAgICAgICAgICAgICAgICAgICAgICAgICAgICAgICAgICAgIC AgICAgICANCiAgICAgICAgICAgICAgICAgICAgICAg ICAgICAgICAgICAgICAgICAgICAgICAgICAgICAgICAgICAgICAgICAgICAgICAgICAgICAgICAgICAg ICAgICAgICAgICAgICAgICANCiAgICAgICAgICAgICAgICAgICAgICAgICAgICAgICAgICAgICAgICAg ICAgICAgICAgICAgICAgICAgICAgICAgICAgICAgIC AgICAgICAgICAgICAgICAgICAgICAgICAgICANCiAgICAgICAgICAgICAgICAgICAgICAgICAgICAgIC AgICAgICAgICAgICAgICAgICAgICAgICAgICAgICAgICAgICAgICAgICAgICAgICAgICAgICAgICAgIC AgICAgICAgICANCiAgICAgICAgICAgICAgICAgICAg ICAgICAgICAgICAgICAgICAgICAgICAgICAgICAgICAgICAgICAgICAgICAgICAgICAgICAgICAgICAg ICAgICAgICAgICAgICAgICAgICANCiAgICAgICAgICAgICAgICAgICAgICAgICAgICAgICAgICAgICAg ICAgICAgICAgICAgICAgICAgICAgICAgICAgICAgIC AgICAgICAgICAgICAgICAgICAgICAgICAgICAgICANCiAgICAgICAgICAgICAgICAgICAgICAgICAgIC AgICAgICAgICAgICAgICAgICAgICAgICAgICAgICAgICAgICAgICAgICAgICAgICAgICAgICAgICAgIC AgICAgICAgICAgICANCjw/cNOyE8dxfVBzhiI5D0un Qo5UGe3XRF0ha6GeZQEyCMvhhxPgAynRUzEqBOSbHcnHVxl0JUfhGM5AjDWeP0JyG8GuMUhjVA4DDWCg PDZtnEPtLSOpOKUuUhL6YVYsTZjqIT3TsYBrNMjgJHQzTDEpDkJwPVTdKJBoCUCfENMpMALQNXYqYTWz YkJfONqoSB1Dm4NomMZ3QEg+Ot3NCV7sj6SmPFavPc HxCV4gvg6UMRqSJkBnF6QbqeD6MWK2GWZmFv2YQNJqKXIusUYcMURfUGRLBeQuR7IkkZ70XEWZSl8+DQ ygjkZvJejDErO2QHYhe8SqSMq4UF9ZWUAoIYw0yMWhE47wt5OneEUoVngoPHveyABbbYNYKH7qeOtoDW GkZHRqTy2dCK6rLLZoGQFkVsN8DNIBZA0RXLPsPZBc oUJoQLFuBZIPPT9KTTzeRXL3DVExrfFipGQiVUtgQD5JSDYxwgJwKkmiJQPDCKr+Pk7FHT5ik4BfCCed OSMlWN4fuh3SIIoHAkAtJ2S6mVFlW3F3ZHmmSm2JBFQgYJMnYoVqWVRGXRgcWK5EIX5ctlA1DT9DdJYg IGSqYXDarDHkBTp3C96mdSKeJKbbRH4RGQE+Romie+Pg 0ETAJcHSQfMEHwPbWgFYDWBaKzQ5DpC7DFt8WbT5BbBG55fOurmzAsNFhfKD8LEY3eIWFbCAUQII4NmM LchV1wgqAwTdDbZKJQRoUiF07ocIWuCSAwIKG7WZMlNo1OBVJaO0QygbNmrYnzhzCuBLEgYVMYYO8BXB oessHciLJslXgoTD75gSlqLR3TCv9HMhAqIB3tla6E jEJeFq6MZDWrXF8ZQOMyGCGoIYTuRWR4OXZkZwGcFIhbTTGuBZEfEPM7QUOtGLNcID6DPcTtMMZeAoA5 SlHiEULdDPAssd9IYSJcBJTzRfU8RRRmFKCzSFBvPPzcGSPkJXKtDHI3KPJgPGStYB3KTgYvSFGuDVZ1 KpnbHPOhQDRsef4UZRStEXIsUTJ5AkBbDEMgFDAmTR evMSXkEOK1TsD7TOPnZVHsZL3AKxTnSNNtGHy0CxCwVGUiNQVquq6ICPMbJDRzRJS1TcNtZSCjZRCtIV giDJGqUROlMQRtRODpMCZcVZ4JAnZoNTLaUEB9FhQfANWnNIYoaf8ZURZvUIThGcm0KrWjYWXdZMBrZK wnMEXkSWQ8WCHfHTQxMLLpDU1BGoCgCRTqSXv9OAxd BXObEWKfry0ABAOhXFXkLMTyRSGyIZJyJDNtFJrkSJYiFROtHUJ2GIPuRSBcSV4XMmDrTBPbFbF4JQki LJFtXRTctn3UCLYeZOCfYFk1JnMxOSQcLYMkDJipHTYvGZZsAEM0KAHrMVLhRU9AYvIlVRBfNmHoMNvr GHSnJQCdpz8ITBNiFDGuYxdeAxIyPSYvFNOoYWooUX PgQBS6PXBkTHKpEUCwYV1RBcRfTTOvGvGeOQvxUFGyYMPycz3GVKJrESPsUWN0JERiOCNtOJEcBZslDQ FrKLQ1MnX5ZQUeURGuVE0PJtFiTYVwDmVtIRFnIKAqBGStjq0YJZIoEFYeUiZuAPLmZIYaAKZoWUglTH NvMUJ5ZAbdIANjQQPvMS3VExFqRIZiAuS5HhPzQCYa QPThgu5TrLLluCiang2IKFeBNx6UbEfzQHGaGJkwKm0tdXQqZXXtKNEJCw2QpzUmKFCgITVLIKcnEXGw EGK6UqQ0FkD8JKG5HwB8CYDvDRSuCaItCYJoUWG4IQYfDiD8Zvu4Mrs1Wdz1AGisIco4LAWeBbSyCWO9 EQL2DyOwXRU+LD1mWVl+Ag2De2YrcwJ2waXhPEswRgk9Xi6UXNMGQ5IPUz== ID Date Data Source [id number] 09/12/2020 04:28:50 PM EDT [facility] Name Value Range Interpretation Code Description Data Negin rce(s) Supporting Document(s) Consultation [facility] IEICPq1rKlLSCkFu22/IBJewWJVer4LgSJriTBq8RVxdPMGwE2MhMUD8oT5rCMO3YMeFVgYuXlTmCvJy lbm [file] 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 The ventricular system is age appropriate in size, shape, and configuration. The ventricles are midline.The cortical sulci is age appropriate in size, shape, and configuration. The basal cisterns are patent.There is no midline shift or mass effect. Normal flow-voids are seen bilaterally.A few nonspecific punctate and nodular foci of high signal intensity visualized on T2 and FLAIR sequences within the white matter in the periventricular distribution bilaterally but otherwise in a nonspecific fashion. [place] and white matter differentiation is preserved. No hemosiderin deposition. No significant congenital anomaly.There are a 5 mm punctate enhancement in the left anterior frontal lobe at the level of the stewart radiata and a 4 mm punctate enhancement in the left posterior frontal lobe at the level of the centrum semiovale surrounded by minimal edema edema. No AVM or aneurysm.The visualized brain stem is unremarkable. The visualized posterior fossa structures show a 3 mm punctate enhancement with minimal surrounding edema in the left cerebellar hemisphere.The sella, hypophysis, and corpus callosum is unremarkable with normal posterior pituitary T1 bright spot. No evidence of Chiari I malformation.The internal auditory canals are symmetric and unremarkable.The cerebellopontine angle is unremarkable bilaterally. Visualized paranasal sinuses including the mastoid air cells are all clear.IMPRESSION:1. 3 punctate enhancing foci suspicious for brain metastases as described above.2. Minimal underlying chronic microvascular ischemic changes of the white matter.This document has been electronically signed by Brady George MD on 09/12/2020 9:01 AM Name Value Range Interpretation Code Description Data Negin rce(s) Supporting Document(s) ID Date Data Source [id number] 09/12/2020 08:14:25 AM EDT [facility] Name Value Range Interpretation Code Description Data Negin rce(s) Supporting Document(s) Consultation [facility] TVRNFg7nMdHEZvWg34/GYFuyMEYhe1KdLLlmHTb7PBdqNAThD6CiDST3nP0nEKB9PShQFoNxAsMnLtIk [facility] [file] ICAgICAgICAgICAgICAgICAgICAgICAgICAgICAgICAgICAgICAgICAgICAgICAgICAgICAgICAgICAg ICAgICAgICAgICAgICAgICANCiAgICAgICAgICAgIC AgICAgICAgICAgICAgICAgICAgICAgICAgICAgICAgICAgICAgICAgICAgICAgICAgICAgICAgICAgIC AgICAgICAgICAgICAgICAgICAgICAgICAgICANCiAgICAgICAgICAgICAgICAgICAgICAgICAgICAgIC AgICAgICAgICAgICAgICAgICAgICAgICAgICAgICAg ICAgICAgICAgICAgICAgICAgICAgICAgICAgICAgICAgICAgICANCiAgICAgICAgICAgICAgICAgICAg ICAgICAgICAgICAgICAgICAgICAgICAgICAgICAgICAgICAgICAgICAgICAgICAgICAgICAgICAgICAg ICAgICAgICAgICAgICAgICAgICANCiAgICAgICAgIC AgICAgICAgICAgICAgICAgICAgICAgICAgICAgICAgICAgICAgICAgICAgICAgICAgICAgICAgICAgIC AgICAgICAgICAgICAgICAgICAgICAgICAgICAgICANCiAgICAgICAgICAgICAgICAgICAgICAgICAgIC AgICAgICAgICAgICAgICAgICAgICAgICAgICAgICAg ICAgICAgICAgICAgICAgICAgICAgICAgICAgICAgICAgICAgICAgICANCiAgICAgICAgICAgICAgICAg ICAgICAgICAgICAgICAgICAgICAgICAgICAgICAgICAgICAgICAgICAgICAgICAgICAgICAgICAgICAg ICAgICAgICAgICAgICAgICAgICAgICANCiAgICAgIC AgICAgICAgICAgICAgICAgICAgICAgICAgICAgICAgICAgICAgICAgICAgICAgICAgICAgICAgICAgIC AgICAgICAgICAgICAgICAgICAgICAgICAgICAgICAgICANCiAgICAgICAgICAgICAgICAgICAgICAgIC AgICAgICAgICAgICAgICAgICAgICAgICAgICAgICAg ICAgICAgICAgICAgICAgICAgICAgICAgICAgICAgICAgICAgICAgICAgICANCiAgICAgICAgICAgICAg ICAgICAgICAgICAgICAgICAgICAgICAgICAgICAgICAgICAgICAgICAgICAgICAgICAgICAgICAgICAg ICAgICAgICAgICAgICAgICAgICAgICAgICANCjw/eH BjL3zwhMAbybF4B9jrRx3ARa0WBF5tz6TrQIRyNIkoxeKkOuuXDxBvHKZcIkhTWiu1EJtuDW0YvMNpS1 OeQ9UhGBtqLV3GQUUhCPTpdFWrRIDxHIYjByQ7RUQgERlwWH1JjCSuRRruLSAgXKKsQkHrWMLwBEMlOI DtOWOqQYGFZDEsDDZwAzNvTLrdIX9Cg8RjwDO3IUm+ Kp2ZHF1qa7KdDFamQoWdUS2sau3PSFkKSaCcV2UlwaP0XMR7HQMiGq1EYSYoUMXpjWSgEJHbEXKVAqHl Y2LfkU74SOAYLd3+ASxtivVeQuoPCvT5PFWxi4ZdZWu2PX3RBKEsAYu2tONnS40bt5JugGOsXgogWdBs NkCjqIDXYRUfX0LozTruICIeIYEzKb2lGB9yKGPcTH ZpXaJ4CHFPUS0ZUHSnGKFprGPxZUSoFZFEZL4VSQzfAGK1LWRhyxUxoRCbSTqsZP1OTIJddaNrZuZfMI BSDQo+Db3OAV3gs2XjHUzjLDLeSN1nva9ZYFwUTgNiS8X7zTNtN3U1AXtzRv2NQJVhJZQjElUkIHDQVL rwLV4IWZ5orzG6QU4AhODaKLCrRMNwlDEiIEs2E83u iUJpBYhqIK3NAGL+Romie+Lm3UUPFgBYZuKDLqXwAzOUTCCiIgD9QhW9XXs9IxP1UcOJ47bUzjapYvXPzs YH0NAA8xGCOjVYDBCS5PzHIxeO9ltgIjXgYkIUYUZkUnF79fsXOgNIQlESJfUHYeXp2XYODdO4GcoaQc iGdkxvNjCLWfRFWCGY3ELJoknrHdyHUebKlwZF03vS oqUT8UGe6CZcEqFA8hfo0DaKKcVs1GMKAwVt1ANPQtIEMaFBWeMCB2ZQInYeNoMYgvMSQdUZHiPVB0KW HzCDAiEU8QTlZnHSIzKfXpMZZxVBNwQZGwoa2WBUHjLSCkCyq2AyUxCKJqBWQdIBjuMHLeYZCjTQG1SF TqFQUiBP8NQfTbLCJlIIFcZYNiGWGiORGdnu0QXVOk ACUoZTFwBDYxMXQaJQBcQRemVBSxVOF2Dpi4JXBmHVEoGU9KEcMwQQLxTEn7POOcHZOtFNZekk7QPMMw VVAuBHx1VVBcPCXyIDYzTUucKLTwBOHpKGhvDJZlQKEpBX9LIyWiWYCwJJLiGIWvHNPoYPNzwj4IUOWl QSUePfB3GZYuNRWbXEFxMEexGEKqMIZ3UVs2GQNnAN ScXX6YEtYvFCAnGDn1DZXjTBFfUVLnxb8RKUBsFWGqKBM0DVKaLTFaGLFtWVaaXRJwHNJ8WCUzLUIgYM LcPI5SPrKgIIMvROs0IXXeXGLpYSFfao3VISWzRRAzFDmvPPRhVCSfLOKpKEiwHEUmMEI1RFH6FTTdTG AgHO3MXhVjCSYqHeKvFSVgDOZzYZOaqx4PAJLoNQCs PEJ6YsGnWFTpWOToDCgfAFHlQIAkVqL2IMOnVTGuGE4QIgQwWRXbVtI9KESfAOHpRHXpni5ATJDuMUVo BaIhEbEzAFAyPDSeBSmmYJIgKSPrXjWzESArUMCwUK6DCcPvYPFeVmQ5GGHpDWZbWCRndg3GQFFrSKNg MBM9HVVoIJLlHYApMDaoHPPcHYP8CEy9EUUaWZOlXV 4RHfRyNLJqQdF6UMPyCSXqYCSbwu8KOCYnETJdLUwjIYYcAUKqYWQtJIvlHDFlHEI2IEaqNAZrJZOqNB 5TCkDlOCFvCjA9SOPcRDJiOEFdqv7CGAXsFZAuJku6WqBbWHVuMNQjJAzmYBOnNMG3JZW1HJElMVEzBH 3VWaMuTXIkRpefYAVlDXReLGBqzz7SgDNrmTfjyw7F PPzHGb7WyRtiENU1TAgwQs6wlYJbCNKiEBHUMg9PdvPsQRMuKTNFDMelOAOfFTX3VzFpOLRmUbS5FGV1 GPCvYyXhGSHwBkH9MrgeNDSsYeR6WpZyAzG2EmHwVaQpMIAoTGDoO3G7XzS2OrFsFsMzXcK+JX7rVRh+ Ca9Ri2TledF3bjKwIGpgRyUgGc8GSDGGW1NTAd== ID Date Data Source [id number] 09/11/2020 05:05:11 AM EDT [facility] Name Value Range Interpretation Code Description Data Negin [facility](s) Supporting Document(s) Leukocytes [#/volume] in Blood by Automated count 7.3 10*3/uL 4-10 [facility] Erythrocytes [#/volume] in Blood by Automated count 4.81 10*6/uL 4.6- 6.1 [facility] Hemoglobin [Mass/volume] in Blood 15.4 g/dL 13.5-18 [facility] Hematocrit [Volume Fraction] of Blood by Automated count 44.5 % 4 1-53 [facility] Erythrocyte mean corpuscular volume [Entitic volume] by Auto mated count 92.4 fL 80-96 [facility] Erythrocyte mean corpuscular hemoglobin [Entitic mass] by Automated count 32.0 pg 27-33 [facility] Erythrocyte mean corpuscular hemoglobin concentration [Mass/volume] by Automated count 34.7 g/dL 32.0-36.0 [facility] Erythrocyte distribution width [Ratio] by Automated count 13.1 % 11.5-14.5 [facility] Platelets [#/volume] in Blood by Automated count 181 10*3/uL 150-400 [facility] Differential cell count method - Blood [facility] Neutrophils/100 leukocytes in Blood by Automated count 65 % [facility] Lymphocytes/100 leukocytes in Blood by Automated count 20 % [facility] Monocytes/100 leukocytes in Blood by Automated count 12 % [facility] Eosinophils/100 leukocytes in Blood by Automated count 3 % [facility] Basophils/100 leukocytes in Blood by Automated count 0 % [facility] Neutrophils [#/volume] in Blood by Automated count 4.82 10*3/uL 1.8-7 .0 [facility] Lymphocytes [#/volume] in Blood by Automated count 1.46 10*3/uL 1.2-4 .0 [facility] Monocytes [#/volume] in Blood by Automated count 0.85 10*3/uL 0-0.8 H [facility] Eosinophils [#/volume] in Blood by Automated count 0.19 10*3/uL 0-0.5 [facility] Basophils [#/volume] in Blood by Automated count 0.02 10*3/uL 0-0.2 [facility] Nucleated erythrocytes/100 leukocytes [Ratio] in Blood by Automated count 0 /100{WBCs} 0-0 [facility] ID Date Data Source [id number] 09/11/2020 05:21:43 AM EDT [facility] Name Value Range Interpretation Code Description Data Negin rce(s) Supporting Document(s) Albumin [Mass/volume] in Serum or Plasma by Bromocresol green (BCG) dye binding method 3.8 g/dL 3.5-5.2 [facility] Bilirubin.total [Mass/volume] in Serum or Plasma 0.8 mg/dL <1.2 [facility] Calcium [Mass/volume] in Serum or Plasma 8.7 mg/dL 8.8-10.2 L [facility] Chloride [Moles/volume] in Serum or Plasma 99 mmol/L 98-107 [facility] Creatinine [Mass/volume] in Serum or Plasma 0.72 mg/dL 0.70-1.20 [facility] Glucose [Mass/volume] in Serum or Plasma 99 mg/dL 70-140 [facility] Alkaline phosphatase [Enzymatic activity/volume] in Serum or Plasma 105 U/L 40-129 [facility] Potassium [Moles/volume] in Serum or Plasma 3.9 mmol/L 3.4-5.1 [facility] Protein [Mass/volume] in Serum or Plasma 6.4 g/dL 6.4-8.3 [facility] Sodium [Moles/volume] in Serum or Plasma 135 mmol/L 136-145 L [facility] Aspartate aminotransferase [Enzymatic activity/volume] in Serum or Plasma 16 U/L <40 [facility] Urea nitrogen [Mass/volume] in Serum or Plasma 8 mg/dL 8-23 [facility] Osmolality of Serum or Plasma by calculation 278 mosm/kg 275-300 [facility] Creatinine/Urea nitrogen [Mass Ratio] in Serum or Plasma 11 [facility] Bicarbonate [Moles/volume] in Serum 26 mmol/L 22-29 [facility] Alanine aminotransferase [Enzymatic activity/volume] in Seru m or Plasma 13 U/L <41 [facility] Anion gap 3 in Serum or Plasma 10 mmol/L 8-15 [facility] Glomerular filtration rate/1.73 sq M pre dicted among non-blacks [Volume Rate/Area] in Serum or Plasma by Creatinine-based formula (MDRD) >6 0 [facility] Glomerular filtration rate/1.73 sq M pre dicted among blacks [Volume Rate/Area] in Serum or Plasma by Creatinine-based formula (MDRD) >60 [facility] ID Date Data Source [id number] 09/10/2020 09:11:37 PM EDT [facility] Name Value Range Interpretation Code Description Data Negin rce(s) Supporting Document(s) [facility] ZUCCKx8mIbFOGlOu68/PCEhjYSLps0HpWJqgBGc0QZfmPLUvS9MlXVN8aL6zIHT2CHsZBpRsHsKsIuD2 [facility] [file] handler [file] [id number]Ra2AFeB7XUL4jAFnKx5XAeQ3BqDMKcXoDF3LBDd= ID Date Data Source [id number] 09/10/2020 06:43:45 PM EDT [facility] Name Value Range Interpretation Code Description Data Negin e(s) Supporting Document(s) History and Physical [facility] FIDUGm9mXlQOWfIk03/JYTtlNTGfl8ArPWsuKVu1WOiiFUWiX1YdAGP0uS5mSWF8IFkMNySuDyTaWzV5 lbm CvAvfHOeZxRNSfVlrTBlNtMXkxEtizbORgBH2VvQI5FFLbJ13eRGYgOJVaK3QhCZDhZYL+Kg2YGHJcoZ FnLH2RMraU2X7nu3uMRs0gve7LkMqh4wdy8s2g8vThmo8D9YfnKRkRzz2oV2vA44jcjAZja/UgAp1D2b kVSdFpE4O8Ha64IxZGBTeIIhodu9YTM/79h+16Duec Cy4TT38Ccbz4++Qx6GQ7O4g3qw+dn4QPxablJk9Vh9vh9spVK0jpEPvtHkp7XW/eMt+66kcJa1el9Ta/ HRSrqMAs6NbS3mFfEENNQZAKJffpdRNfYKoqdyN85nQIeVayVmLOAfbOyl7NM42u4qsL+HM0pQQFm+WT 55DRZUGWYoaQhJwsqHYASQ+SEpIu+ioD2QOMfH4Q7B ldEwVetOId83xqFxZaeMmlQbJkjUZy4FQvYRvsqUK2fH2uVOcAr7WkOKz2oNahAnbweH5H+aeI63RUus IkA2oVHbH4jNwIaIrVxZvmssj+Rx+VPM+JKS5LJVpt9OmmG1/Y5kkvzy3o91cTIPjoH0XJyiUKWahskh HWsNjBf3KpIYrL47yb1SBJ3mfmTxZw3uz27YDX+c+i 55Se7HERGccR8PY+MilLpmoaJs5smqL6gMa49/zy8t4SMaKtbbdsS4f0au9SjFg7bbQJf6UCxoPBWjxb Uo5SY626IzUXkwEIURqPcRLj1Cyy77NzlFXVTqglwIej2nRwbZJpjagiXr4SD6WwtvSfkROXx20fwbzZ UvvRC2mrYt5pYjNiBzTsghgRkevLnA5gnN87oVAlcJ n4234xImKS6/K8+hUpF7sOc6U9WCYIA3BThmc2XtjJtJhWmlkAVk6biECHwq0PNrytlLNZO1AxE4gVIn uG270M52dGDrbPLYxuTYvt4mDveKteDfoajcQzddY5PFpADDhv+bibiana/AukyCfGlNGao1fc+iwiBUd8bZ [file] AgICAgICAgICAgICAgICAgICAgICAgICAgICAgICAg ICAgICAgICAgICAgICAgICAgICAgICAgICAgICANCiAgICAgICAgICAgICAgICAgICAgICAgICAgICAg ICAgICAgICAgICAgICAgICAgICAgICAgICAgICAgICAgICAgICAgICAgICAgICAgICAgICAgICAgICAg ICAgICAgICAgICANCiAgICAgICAgICAgICAgICAgIC AgICAgICAgICAgICAgICAgICAgICAgICAgICAgICAgICAgICAgICAgICAgICAgICAgICAgICAgICAgIC AgICAgICAgICAgICAgICAgICAgICANCiAgICAgICAgICAgICAgICAgICAgICAgICAgICAgICAgICAgIC AgICAgICAgICAgICAgICAgICAgICAgICAgICAgICAg ICAgICAgICAgICAgICAgICAgICAgICAgICAgICAgICANCiAgICAgICAgICAgICAgICAgICAgICAgICAg ICAgICAgICAgICAgICAgICAgICAgICAgICAgICAgICAgICAgICAgICAgICAgICAgICAgICAgICAgICAg ICAgICAgICAgICAgICANCiAgICAgICAgICAgICAgIC AgICAgICAgICAgICAgICAgICAgICAgICAgICAgICAgICAgICAgICAgICAgICAgICAgICAgICAgICAgIC AgICAgICAgICAgICAgICAgICAgICAgICANCiAgICAgICAgICAgICAgICAgICAgICAgICAgICAgICAgIC AgICAgICAgICAgICAgICAgICAgICAgICAgICAgICAg ICAgICAgICAgICAgICAgICAgICAgICAgICAgICAgICAgICANCiAgICAgICAgICAgICAgICAgICAgICAg ICAgICAgICAgICAgICAgICAgICAgICAgICAgICAgICAgICAgICAgICAgICAgICAgICAgICAgICAgICAg ICAgICAgICAgICAgICAgICANCiAgICAgICAgICAgIC AgICAgICAgICAgICAgICAgICAgICAgICAgICAgICAgICAgICAgICAgICAgICAgICAgICAgICAgICAgIC AgICAgICAgICAgICAgICAgICAgICAgICAgICANCiAgICAgICAgICAgICAgICAgICAgICAgICAgICAgIC AgICAgICAgICAgICAgICAgICAgICAgICAgICAgICAg ICAgICAgICAgICAgICAgICAgICAgICAgICAgICAgICAgICAgICANCjw/vWBmY4edtLQygoL2V5odBv9V Ub2RRS0xl1UbBSIoQAmadlUkDfcGRnTfWEAeKwxJCnb3UTuzWU7ZeSOjJ6YiA9WzYPtgBW6FVBKrXWUt lOQeAOUkNVBxRfM2XEJdZBhjYG0DyTGyVLobOOQuXZ FoPjBgJYBqNF5XGDDaR570mcGqRr6CKq2UJyMoSJ6xmb0VDcyfDLRsJodXYfr8PRrpUL4NqEIspGYvMY CiXWXSLvOgO7niq9BwEvwdEWUJFBmhOS4Uh8KrpLXlNRr+Tl3FAW8bg9PoUVldJHMmGL4pcg3AOLbYXi TvD2BxcLpjAMryWKIgcKZBdLMwGR90CJOoTHUTEGXq oKO0ZnM2PoOuWcKcASe4CWMsVM9mDFnqSE1GUYS4OPdbZJFwZUKeX2xBGiZxEYZbAEKtvShhWA2ZAkSc L8JzqoYvfNOpMuAbXDGVZh9+YPrjznPpEnbWXiF1RBOls2UaVQk2TC9DGWOvXEnaSP7LNLBgrP2pGVod BO3MBqCgEPIgZRNLMsErW78rrKLfPIt6B0CoToIoVZ VkRmlsZXMgPDwvTmFtZXMgWyBdDQogID4+ID4+ELrrBX4ZXVvsygQiOXQbCa6SLWIlLTRgWX9eOJSzVM XcD2B3zXdfADAKZrKsO6wpwmzcHX0mZHDaS959jWwwkwIwJDC1FKEcAu2KTSDjHDN4EBKgiFAtNlMhCE NSNTcgHQ9FfPAbGUP8sH2lWElzPOOxRLViC6bFUuNl dUsxTA78jIpktoOezPFvMRe+Sk0KGX6np7BjISs3imJkWPxvCZPzGZgzJMAvWEMnHNLnYNY8MPC8ZBPV XcBpSTEsDLVtVKuaAHHxLKQcro8PQJYqDZDwKqO4SjPzGWCsZWXxDPhoCYOqXJW6UYS4UMNgCUHmCF6T JoJnIQNyOQQfWZzmHKQnKKTbpn3AGXLxWDLxQiLpVj XuMWDnOJDjKGrkSBQfETUmVhQ5RGEbYZYuRI0VXtZiCSCrXEGtCDOaMHGtLAVnuk2YIIMyVTWnLTH7TE KpYWLqEYYfNGkjFKQbAEI5LMKjQSFcRDRjFP4ZCoFcIHOrDXE3MfzcNQYmLXVvnz2NMASmHXKuEuqzQT NyCQPoMHAdUFkjXXCbCZX3Aje2GXThXFOjOJ3QWpOf UOWgAZp3QRCjTUJvRUFrhz3XXFYlVCKpVVL8IKGkLJJsKYCcOJvgINBkDAJ3XHD5MYNnIMVjLZ3ZMkPq NRDlHKgeCcHkIUPrMHFfux1XKFWvMBDdVBOjPPSkQKEbDONvZQxcIFSkHEGkJWo2YPHlKIWoMR9RMxWh WCNmEOA8VjNeAUKxCOEzfu6WXHGaPKIyEEb9HRYsTL ObGECuJCbuDIPgDPJnAzIgKPNjSYHnMF6EAqOcXTNvOfD0EaDwGXSyQWDvly9QAKKgMVPiPgt9AUXtRQ SbSNPnVIezQULcFYKoZME8AHVeMOSoCE6CKqCvKSZlIjGbOCZsXDAbTZWydr9NUYDmMRWpJpC1GEWdIT LrPNSzJKkpENSuZRM3NSWeXYDyHMVtEL0KZbNzZMWu JdGtNUTqXIPnREOvyk4SXSGaBMEbAFKiLqItNPCdJFWePOj4omXieINrMLw5MH4DN3PrftQyEaVPGx4W o830DGF1ZMYtBl1SS4fhUx8dLLMfNSIGOi8GOQw0U7J1MnC0BmicDlW3RQU5DcD2XfWjCPBiGEIrDsEu Mjc+MJcvRqIrILX8KPIlTNLfGhS0KBUuWSD8GcY6V3 HlU9CeGd1mIIRCVu5+TBbjqBYttGkoHNXMWxA0PCpkXQvcUFDOHh9W ID Date Data Source [id number] 09/10/2020 06:13:38 PM EDT [facility] Name Value Range Interpretation Code Description Data Negin rce(s) Supporting Document(s) Consultation [facility] VQWJHn8rDmAMHnPk25/ADTgjEHQqq6MaGGbgITl2CYuhCKZnS7ZpSBG4eZ2bROD7LVkEQkAtKfBmErJ2 lbm [file] 1i6e/1TeQPpb/Lwj71cO8R5L7b3vVwk7E8FXx9HJSBNcOqWQPXWg4uLVK+ERnG4ed1zjNgw6/hN5A+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 [file] VRjKexOkdZgjnU5+7TwR/Pe0MeP++XWLXO/Miguel Angel+Q3m [file] AgICAgICAgICAgICAgICAgICAgICAgICAgICAgICAgICAgICAgICAgICAgICAgICAgICAgICAgICAgIC AgICAgICAgICAgICAgICAgICAgICAgICAgDQogICAgICAgICAgICAgICAgICAgICAgICAgICAgICAgIC AgICAgICAgICAgICAgICAgICAgICAgICAgICAgICAg ICAgICAgICAgICAgICAgICAgICAgICAgICAgICAgICAgICAgDQogICAgICAgICAgICAgICAgICAgICAg ICAgICAgICAgICAgICAgICAgICAgICAgICAgICAgICAgICAgICAgICAgICAgICAgICAgICAgICAgICAg ICAgICAgICAgICAgICAgICAgDQogICAgICAgICAgIC AgICAgICAgICAgICAgICAgICAgICAgICAgICAgICAgICAgICAgICAgICAgICAgICAgICAgICAgICAgIC AgICAgICAgICAgICAgICAgICAgICAgICAgICAgDQogICAgICAgICAgICAgICAgICAgICAgICAgICAgIC AgICAgICAgICAgICAgICAgICAgICAgICAgICAgICAg ICAgICAgICAgICAgICAgICAgICAgICAgICAgICAgICAgICAgICAgDQogICAgICAgICAgICAgICAgICAg ICAgICAgICAgICAgICAgICAgICAgICAgICAgICAgICAgICAgICAgICAgICAgICAgICAgICAgICAgICAg ICAgICAgICAgICAgICAgICAgICAgDQogICAgICAgIC AgICAgICAgICAgICAgICAgICAgICAgICAgICAgICAgICAgICAgICAgICAgICAgICAgICAgICAgICAgIC AgICAgICAgICAgICAgICAgICAgICAgICAgICAgICAgDQogICAgICAgICAgICAgICAgICAgICAgICAgIC AgICAgICAgICAgICAgICAgICAgICAgICAgICAgICAg ICAgICAgICAgICAgICAgICAgICAgICAgICAgICAgICAgICAgICAgICAgDQogICAgICAgICAgICAgICAg ICAgICAgICAgICAgICAgICAgICAgICAgICAgICAgICAgICAgICAgICAgICAgICAgICAgICAgICAgICAg ICAgICAgICAgICAgICAgICAgICAgICAgDQogICAgIC AgICAgICAgICAgICAgICAgICAgICAgICAgICAgICAgICAgICAgICAgICAgICAgICAgICAgICAgICAgIC NiXZLaJAMwBNSnCGQcHJTcVJTwXXOkGABiQAMlVSLiCTLtNRp4U3nfFNGcGUNgMG8mQQn3Gq9+DQoNCm QdCUQ9ebDvgF8PNJ8gc5UoRXowQKIvx6FvMWl1DH6Z BDKlSCpsPG1DJRhebe0ULTJqKDAucWMCl8ekMfBcQHS9HEHcPjpzHD8CSXHbR2ezkcSiHWOdMZLRCLte GMBQWRdrVBXGDQWrOYAfYhHnORdiBR3Ca3KsiQI8EQc+Ty2EIC2vl2OwNCjkMQAmCU7ntv9GLRvHHeBj P4FrpwR7BIA7FZXdWr5GPEQqEJWwoLBbUIDqSCPGJy YaV4LakG25KVZPAy8+IYjwmvXdQcqHLzV6CJXcr1PnYMs7GQ8JIRYyOZz0kPDuH65re6AmdCQgUolaFb MkjLHFwaTovnszJPFsICJgGg2mZN2nKVGsLNRhUbT6TGNPAU3ZEIVeGMTanPAhTQSlZLDKVB7LMZrfVE W8WVKoobYalGQqMHlrAJ2XIGHdnsPvVaCbABFQQDf+ Xv9MIR4up5MhYRjiZjZeJQ3zyt6GZLjJTrCqD1X8pSNsK3U0QLwwOk6APIWqNZArKqZvKSRMLPewXC0J SK3wrcK5PK9SjOJhWDViTQTdwFCyLDk1T84otLKtWKhwHZ8YEKF+Romie+Bv4TLGOsVMRxDHWvVdLlMLHQ MiHnH4QaQ4CLl1DlL7YhBZ12mQauzdVdBHdkVS4HCU 4oLIAnIDIIYY9CvKFytE7bdgPwWHXwJKFWKsNdH04grGUdBHTbADEpJMTeUq3FDFFsT7EybdRliDimnw ElYKTpPNZDOR5OEJvnuqOuuITreJykKW50gHodSI6HIf5MOcNpBU4zqa2JmAHjFw2AUKAjPb8HDXVoHJ KiFYEmVLB4JIYrDcHpUSdcDTLcYFMbHAM6MTXaNXTs UK8XBzZcARRhQyL5QVggMOCiMQNdxy9KDPWdKKIlOWJwUpQaQHNtZAXrGIgxORAnFXJdWIF7SIGhZZBw TG4BJxRkUQHxADZ4HVwzLCAbLDPipn6PVIMkGNNiAyf9XbShYFKfQKJyOGarUXQaYJT0HWC8RYCmYKQw BZ9LOmDtZAUuZXsxYtZwFFEjVLRimk9ZGTYyVXZuKO VlKVFiENDlUKWfAIxcOZToUXAuDoSqISWzMPOlZO1ASeXnMDNqIXUbAsMiQTVqGTDbbr4UJXXjNMHkDq Z2HsYqZJCeNUXlUGczDHYdRZK2KaGmJSAfCPPgMB6EJvMhRUAvZXS4PgrgBFVvDSWesz9KAWYfSOJvSJ rvOvPvGIHgEFTbLHruMESvYBD4EcmaBDBdAWHiHO1K FvElARUiKIN0IUEtIYJkWVUxzm3AWCIkFAEfCqA7YIUcDJBfIGLfSKjsFXIiSBD1SOGtFZUmWZDiIJ2G EcCvSHOdZQczIhYkPUAwKWRclg0HHNElSQTySzByZZTwRURvLJCqTSybKAOyZLP9TcmcJTDrWUEjPG2B ZcItZERxLXj3HqnaQJFdZVGvqv6OCESjKMJiCId4ZU LrVJKeDBSbIQaaDEArYTHmFBs7ROIjMXGzIS4RZsCsGFVoIuE9YuYdQEJhJXSbrk1JABXsQMOvGDiaTh HnMCCjFWEcZTxvIIZfONHbFJahELKlZOZoWV5RAtNtHIYkLoHuNrhlWGUaVAZddy0WGICkPJBlFbJ0HK UwDZSiVQOdNBkrAVMkKAHhNiP4AVZvDKXeSS5QKeCj ACToCmL6QxglXNJaNSAxag1OFWWvQJLmBpa7WbDxNQPvCMJmMSheIZSoKLP6YfRxKQZvMHTuYJ7YHrVl UYGkMyR5EIMrYVPmPDJipu0VHVIuXQWkWVH5OwSiLFMhOZOzAEo4heIicNCjDEf9VB7FP2XjjcMeYxfC Pv6Xj318AHI7PBDbIr9GG9icXt5uFZEpZPJABu2UMG a2CbZfI5BvTtD1VVLmTXAxJzdeLXYkSNacKmq4XtSmLST+YBmkVULsWDFxBqv6NWCxULYoJWL1WDKpC0 DzUHFnGeD9Tr9uLZWQYi1+JPmwkHFmsTlnTWEULoN3Axc2HNvlEEXXWc7D ID Date Data Source [id number] 09/10/2020 03:36:39 PM [facility] CT THORAX WITH CONTRAST [id number] RESUL TInterpreted by:Raz Blanc, MDPROCEDURE INFORMATION: Exam: CT Chest With Contrast; Diagnostic Exam date and time: 09/10/2020 2:43 PM Age: 64 years old Clinical indication: Other diseases of stomach and duodenum; Condition or disease; Other: Cancer; Primary cancer: Hepatic; Follow-up oncological assessment; Additional info: Hepatic, gastrohepatic ligament mass, smoker eval for malignancy TECHNIQUE: Imaging protocol: Diagnostic computed tomography of the chest with contrast. Radiation optimization: All CT scans at this facility use at least one of these dose optimization techniques: automated exposure control; mA and/or kV adjustment per patient size (includes targeted exams where dose is matched to clinical indication); or iterative reconstruction. Contrast material: OMNI 300; Contrast volume: 50 ml; Contrast route: INTRAVENOUS (IV); COMPARISON: No relevant prior studies available. FINDINGS: Lungs: There is mild centrilobular emphysema. There is tiny about 3 mm right lower lobe nodule. There is tiny pleural-based nodule or scar peripherally left lower lobe. There is punctate fissural nodule left upper lobe. Pleural spaces: Unremarkable. No pneumothorax. No pleural effusion. Heart: Unremarkable. No cardiomegaly. No pericardial effusion. Mediastinal space: There is masslike thickening of the lower esophagus covers length of approximately 5 cm. Aorta: Unremarkable. No aortic aneurysm. Lymph nodes: There is bulky mediastinal adenopathy largest is subcarinal measuring up to 5.7 cm. Liver: There is mass of the upper abdomen interposed between the stomach and liver measures 6 cm. There is numerous adjacent lymphadenopathy. There is at least 1 hypodense hepatic mass consistent with metastasis. Gallbladder and bile ducts: Possibly some gallbladder sludge or retained contrast from earlier study. Adrenal glands: There are bilateral adrenal gland masses larger on the right measuring up to 3 cm and on the left measures approximately 2 cm. Bones/joints: Unremarkable. No acute fracture. Soft tissues: Unremarkable. IMPRESSION: 1. A few tiny pulmonary nodules.Fleischner chest imaging society guidelines do not apply to this patient who has a known malignancy. 2. Bulky mediastinal adenopathy consistent with metastasis. Masslike thickening of the lower esophagus suspicious of a neoplasm or contiguous spread of the mass interposed between the liver and stomach although this latter mass may potentially represent bulky john metastasis from a primary esophageal CA. endoscopy correlation is indicated. 3. Hepatic metastasis. Bilateral adrenal gland masses possible metastasis. Upper abdomen regional lymphadenopathy. THIS DOCUMENT HAS BEEN ELECTRONICALLY SIGNED BY RAZ BLANC MDThis document has been electronically signed by Raz Balnc MD on 09/10/2020 3:36 PM Name Value Range Interpretation Code Description Data Negin rce(s) Supporting Document(s) ID Date Data Source [id number] 09/10/2020 04:14:35 AM [facility] Name Value Range Interpretation Code Description Data [facility] rce(s) Supporting Document(s) Leukocytes [#/volume] in Blood by Automated count 7.5 10*3/uL 4-10 [facility] Erythrocytes [#/volume] in Blood by Automated count 4.98 10*6/uL 4.6- 6.1 [facility] Hemoglobin [Mass/volume] in Blood 15.9 g/dL 13.5-18 [facility] Hematocrit [Volume Fraction] of Blood by Automated count 46.4 % 4 1-53 [facility] Erythrocyte mean corpuscular volume [Entitic volume] by Auto mated count 93.1 fL 80-96 [facility] Erythrocyte mean corpuscular hemoglobin [Entitic mass] by Automated count 32.0 pg 27-33 [facility] Erythrocyte mean corpuscular hemoglobin concentration [Mass/volume] by Automated count 34.4 g/dL 32[facility]0-[facility] distribution width [Ratio] by Automated count 13.2 % 11.5-14.5 [facility] Platelets [#/volume] in Blood by Automated count 189 10*3/uL 150-400 [facility] Differential cell count method - Blood [facility] Neutrophils/100 leukocytes in Blood by Automated count 67 % [facility] Lymphocytes/100 leukocytes in Blood by Automated count 20 % [facility] Monocytes/100 leukocytes in Blood by Automated count 11 % [facility] Eosinophils/100 leukocytes in Blood by Automated count 2 % [facility] Basophils/100 leukocytes in Blood by Automated count 0 % [facility] Neutrophils [#/volume] in Blood by Automated count 4.99 10*3/uL 1.8-7 .0 [facility] Lymphocytes [#/volume] in Blood by Automated count 1.49 10*3/uL 1.2-4 .0 [facility] Monocytes [#/volume] in Blood by Automated count 0.83 10*3/uL 0-0.8 H [facility] Eosinophils [#/volume] in Blood by Automated count 0.16 10*3/uL 0-0.5 [facility] Basophils [#/volume] in Blood by Automated count 0.03 10*3/uL 0-0.2 [facility] Nucleated erythrocytes/100 leukocytes [Ratio] in Blood by Automated count 0 /100{WBCs} 0-0 [facility] ID Date Data Source [id number] 09/10/2020 04:36:27 AM EDT [facility] Name Value Range Interpretation Code Description Data Negin rce(s) Supporting Document(s) Albumin [Mass/volume] in Serum or Plasma by Bromocresol green (BCG) dye binding method 3.9 g/dL 3.5-5.2 [facility] Bilirubin.total [Mass/volume] in Serum or Plasma 0.9 mg/dL <1.2 [facility] Calcium [Mass/volume] in Serum or Plasma 9.0 mg/dL 8.8-10.2 [facility] Chloride [Moles/volume] in Serum or Plasma 97 mmol/L 98-107 L [facility] Creatinine [Mass/volume] in Serum or Plasma 0.76 mg/dL 0.70-1.20 [facility] Glucose [Mass/volume] in Serum or Plasma 88 mg/dL 70-140 [facility] Alkaline phosphatase [Enzymatic activity/volume] in Serum or Plasma 110 U/L 40-129 [facility] Potassium [Moles/volume] in Serum or Plasma 3.9 mmol/L 3.4-5.1 [facility] Protein [Mass/volume] in Serum or Plasma 6.6 g/dL 6.4-8.3 [facility] Sodium [Moles/volume] in Serum or Plasma 134 mmol/L 136-145 L [facility] Aspartate aminotransferase [Enzymatic activity/volume] in Serum or Plasma 16 U/L <40 [facility] Urea nitrogen [Mass/volume] in Serum or Plasma 12 mg/dL 8-23 [facility] Osmolality of Serum or Plasma by calculation 277 mosm/kg 275-300 [facility] Creatinine/Urea nitrogen [Mass Ratio] in Serum or Plasma 16 [facility] Bicarbonate [Moles/volume] in Serum 23 mmol/L 22-29 [facility] Alanine aminotransferase [Enzymatic activity/volume] in Seru m or Plasma 12 U/L <41 [facility] Anion gap 3 in Serum or Plasma 14 mmol/L 8-15 [facility] Glomerular filtration rate/1.73 sq M pre dicted among non-blacks [Volume Rate/Area] in Serum or Plasma by Creatinine-based formula (MDRD) >6 0 [facility] Glomerular filtration rate/1.73 sq M pre dicted among blacks [Volume Rate/Area] in Serum or Plasma by Creatinine-based formula (MDRD) >60 [facility] ID Date Data Source [id number] 09/13/2020 09:39:00 PM EDT [facility] Surgical Pathology Report See Addendum B Ugo: DAVION RENNERMRN: [id number] Number: [id number] Date: 09/10/2020 00:00Received Date: 09/12/2020 10:49Physician(s): GILDA BLAKE MD OZDEN, NURI, MDSpecimen(s) ReceivedA: Esophageal massClinical HistoryMass in the gastrohepatic ligament.Addendum 09/20/2020 RESULTS OF IMMUNOHISTOCHEMICAL ANALYSIS: This case was sent to [facility] in [place], [place] for PD- O6pkphtlu (KEYTRUDA) testing and the results are as follows:TEST:Marker Result DescriptionPD-L1 (KEYTRUDA) 25 Expression Reference Range:CPS= Combined positive bywqk=606 x (PD-L1 reactive tumor cells +tumor-associated lymphocytes + macrophages)/(total number of viable tumorcells)CPS <1 = No expressionCPS>1 = ExpressionPD-L1 22C3 pharmaDx(TM) is FDA approved for use in the detection of PD-L1in formalin-fixed paraffin-embedded adenocarcinoma using the EnVision FLEXvisualization system on [employer] Link 48. The assay is indicated as corey in identifying gastric or gastroesophageal junction adenocarcinomapatients for treatment with KEYTRUDA(R) (pembrolizumab). PD-L1 96H8qaveaKn(TM) is a trademark of [employer], an [employer]pws Addendum Electronically Signed By: Joe Boyd M.D. 09/20/2020 Addendum 09/15/2020 HER2 immunostain is negative (0). Addendum Electronically Signed By: Joe Boyd M.D. 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 (See MicroscopicDescription).Enedelia Dubon M.D.;Resident PathologistElectronically Signed By Joe Boyd M.D., Attending Pathologist09/13/2020 21:39:36 The attending pathologist named above attests that he/she has personallyreviewed the relevant preparation(s) for the specimen, pe rformedmicroscopic examination when indicated, and rendered the final diagnosis. Gross DescriptionThe specimen is received in formalin and labeled with the patient's name,"Davion Renner" and "esophageal mass". It consists of multiple soft tantissue fragments measuring 0.4 cm in greatest dimension. Totallysubmitted in one cassette.TE-MOAK\\Microscopic DescriptionSections show tumor cells growing in sheets, and showing extracellularmucin. There is a focal desmoplastic reaction compatible with submucosalinvasion. HER-2 immunostain is pending and will be reported in anaddendum.This report may include one or more immunohistochemical stain results thatuse analyte specific reagents. All positive and negative controls havebeen reviewed by the attending pathologist and are satisfactory. The testswere developed and their performance characteristics determined by [facility] Pathology department. They have not been cleared or approved by the USFood and Drug Administration. The FDA has determine d that such clearanceor approval is not necessary. Name Value Range Interpretation Code Description Data Negin rce(s) Supporting Document(s) ID Date Data Source [id number] 09/09/2020 05:38:54 PM [facility] Name Value Range Interpretation Code Description Data [facility](s) Supporting Document(s) [facility] PCCDKe9kIpVGVzIm79/YEEqmGIEbl1LdLAxiJXm9JFqhDZKkU3VxXIG9vX8jOGC5ZRqGPpAoUkOaEwX7 [facility] [file] SQIlXDKuXtMiAQp9HeDyYDNzPVa5JuF4HeI4AeUd CH0NHu5RXgT9SBH5pACxOv5UMCS9DUMQDxLrQG1HTEf= ID Date Data Source [id number] 09/09/2020 06:34:54 AM EDT [facility] Name Value Range Interpretation Code Description Data Negin [facility](s) Supporting Document(s) History and Physical [facility] HIIJVy7aPeFVZePv03/MNAjiCPAex7XyYGxiQFv1SFoaCKYmM3RtAPD8uK8yJOM8WXhENoXpPpQuLaT6 lbm [file] Ibug17Gxyho8X5xLO9MGZWucAU+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/qlnr2dGVU4Jb [file] ICAgICAgICAgICAgICAgICAgICAgICAgICAgICAgICAgICAgICAgICAgICAgICAgICAgICAgICAgICAg ICAgICAgICAgICAgICAgDQogICAgICAgICAgICAgIC AgICAgICAgICAgICAgICAgICAgICAgICAgICAgICAgICAgICAgICAgICAgICAgICAgICAgICAgICAgIC AgICAgICAgICAgICAgICAgICAgICAgICAgDQogICAgICAgICAgICAgICAgICAgICAgICAgICAgICAgIC AgICAgICAgICAgICAgICAgICAgICAgICAgICAgICAg ICAgICAgICAgICAgICAgICAgICAgICAgICAgICAgICAgICAgDQogICAgICAgICAgICAgICAgICAgICAg ICAgICAgICAgICAgICAgICAgICAgICAgICAgICAgICAgICAgICAgICAgICAgICAgICAgICAgICAgICAg ICAgICAgICAgICAgICAgICAgDQogICAgICAgICAgIC AgICAgICAgICAgICAgICAgICAgICAgICAgICAgICAgICAgICAgICAgICAgICAgICAgICAgICAgICAgIC AgICAgICAgICAgICAgICAgICAgICAgICAgICAgDQogICAgICAgICAgICAgICAgICAgICAgICAgICAgIC AgICAgICAgICAgICAgICAgICAgICAgICAgICAgICAg ICAgICAgICAgICAgICAgICAgICAgICAgICAgICAgICAgICAgICAgDQogICAgICAgICAgICAgICAgICAg ICAgICAgICAgICAgICAgICAgICAgICAgICAgICAgICAgICAgICAgICAgICAgICAgICAgICAgICAgICAg ICAgICAgICAgICAgICAgICAgICAgDQogICAgICAgIC AgICAgICAgICAgICAgICAgICAgICAgICAgICAgICAgICAgICAgICAgICAgICAgICAgICAgICAgICAgIC AgICAgICAgICAgICAgICAgICAgICAgICAgICAgICAgDQogICAgICAgICAgICAgICAgICAgICAgICAgIC AgICAgICAgICAgICAgICAgICAgICAgICAgICAgICAg ICAgICAgICAgICAgICAgICAgICAgICAgICAgICAgICAgICAgICAgICAgDQogICAgICAgICAgICAgICAg ICAgICAgICAgICAgICAgICAgICAgICAgICAgICAgICAgICAgICAgICAgICAgICAgICAgICAgICAgICAg FSFsDCJsLVFmXXKjLUBgDWObNBNzTOFrEQt1D9pyER FhPLGhDJ3xYKy6Ss3+TToMCxYvKWZ9goLpmV7XIL9vo1PsNOydMZAkm5TiNUi6GF0CXCVfJCtvQC2UFL gjiw9IMQSjYEUgeOWIi4idSzSaRIN6TIDgWzibYI1ABKCiE9wtffWvGVJuIHJSZHnzDTWFLJeiYARRUQ MuKVEnEyBkWbYiCTDsSU7QRYYyY630fvPaJX6YBx0N AvQtHV7vei0AZpPbTJObSdpWQzf3CFbiYE9JaLVbbSIiWbIjFVRPPsHcC4ede4QmKakhFLRBTTvvTR5T j9AfrNMfXTv+Ug3VMA5ky6VuCHigKbIgPC9ogg8NKKaCXdBeV6AlhWkiVKohPJDngMBKCY5rRYwySYLc RFRmCRUZWPBidFB0BkL4GnUyZyXlSPE8OGgyVK2gWL uqNM8XBDB6ENufUJSwSUGmN1hFShJbGLBtGGWfaXeiMM4IQcIqG6LcraQqeLKiMqTfWVTZCh4+DQplbm EgHjsCEpD1TMEcm9KcLHk7FD3UFGSrLBhnFG4YFVEwgN2vWYbgBZ7EPkFrHADvTITHLeJmC47doHFaQH j7Q1JeTyJiAMAsKouiMVSvOYxdPbDbIORnXvTgWEnu ID4+ID4+RHfmRR9DSNpjkxJmDFPzMn4KZFCnCXXoPE0hGGQnFETdS1H0ePfuWTDAStJgP6eshyccZC1a ELCjD354cYkzeqUsETY0PUNySo0DDFPvBYV3UYWqyUKfJwWaBZPNQSroWN4UxSIdIDR0dB0lQVmrDYZw KFIzJ5rJYmZpsFkfZA52uHvaszGclASbWHd+Pg0KZW 3ok2UeCPn6eoYsFUfmFYP0VBjhXOAvEJQfDJMgRML1LNI9QRPHVzXiLGHxMXOoAYvhIXHrIPNalk3HZQ RxWRQgIGM7DGXcDIExZQIyKSpaNVNeCGJ9YYXrRAQdCPPqBP7EShKdZPQyGOFwEVsvKCSrRXTodx6STC HhCZNqZtEcWzGcCXFjFCHyZOclUDPxOYXyIwN6IAIw ODFwBC9AYdGvIZNpOPz0SwPcEPRjPNInuc0GDITqYHTeBegwFxRhHHAuHMVgKRbiCQKoGZYhGULfCEJz BKXcBE9IFyNvQLEsSTUdJoAjPCLhGRUxdr2LDDCcAAFmOxm4KsNdLOXvYROhLMuyRVMmMQG9IXj4TGMc IDFzYX7ZSjEcQLCfDIV1FoMjJDNvUIFsml7GSPFeSO MoSfY2MxSwXITsZHPlGPqaLULlOTN2IWM7CCJbCHDfBV6TAbJaGLWzEIknXvRgHOFwUABhos3MQOAgSS UiCbTwSqZkRYOpXHDyFDqmLDAeBDF9Fkm3OKDvWEZrLY7TNsSgCWRdGPz8NkfpHFJsLPGkej6EGSLbEF JeZTh0HqLqIDIfKFNfJDgiOVFrSPG2SwD0CVLvOPUp QW3RUfQgFTWfDZj0IeyrIKWrBTGadl7JMYZnXIHnJZXjSRWrHNVhONZbHKzzXMAiMOMnPIf9TXIxQQKx QY5DQmXaXDYnGpHfKdHbFACgGUIydm2TPOAaJZKfIHB7ZFUoNWWcVNAvWUqoHRAxPSUcKFGnNQMqKIHc YK6YTtEvDOTeYjDjVWrzUCBcVODzhw8BFJOqSUBtNj K0DuNaKMGvMPOrHZrjBLAxKVMdBfJ6RYUwAUHaRF5TBzHgUASuWoB9SNFbDIKmDOTakj8QPQMfDEXfMM W6HpVbOVAsTOBrRGbbTZQaMRW5QAx9MRFzFROqQV7BUrUiVWQcVzIeQwZeTHMqTVTbsk6ELFXgZPXhJO TnUJWaFHOlEKHhNCfuKOOcENA4MPn5XSIkGGKzXX6W UvXbGJSyTprnQCJqDBCsPTIbhj5KIIZlCPLbEnK9IpTfRDUtQHPhFPy8ucJviRXlLWx3MN6SO3FsnpXl RutIEr0Ek310XGK9USNiEb4JR2kfJu5uDGCgELAICs9XPSr6Cmt5CkdwYZm0S4UhZUA9LJijVzUeDEvf CYHeYRj6SQn+TWbtDgh5JWNeSQkiQwF4Jxm5AJCiSf RvENLhOIF7YVIwHg3pWIYICz9+WEmjoTMtxNzzAECNXhO0XUE4PQjgPTLFMo2T ID Date Data Source [id number] 09/09/2020 07:58:06 AM EDT [facility] Name Value Range Interpretation Code Description Data Negin rce(s) Supporting Document(s) HIV 1+2 Ab+HIV1 p24 Ag [Presence] in Serum or Plasma by Immu noassay Non Reactive [facility] Negative for HIV-1 p24 antigenand HIV-1/ HIV-2 antibodies. Nolaboratory evidence of HIVinfection. ID Date Data Source [id number] 09/09/2020 06:37:49 AM EDT [facility] Name Value Range Interpretation Code Description Data Negin rce(s) Supporting Document(s) Leukocytes [#/volume] in Blood by Automated count 7.9 10*3/uL 4-10 [facility] Erythrocytes [#/volume] in Blood by Automated count 5.13 10*6/uL 4.6- 6.1 [facility] Hemoglobin [Mass/volume] in Blood 16.4 g/dL 13.5-18 [facility] Hematocrit [Volume Fraction] of Blood by Automated count 47.7 % 4 1-53 [facility] Erythrocyte mean corpuscular volume [Entitic volume] by Auto mated count 92.9 fL 80-96 [facility] Erythrocyte mean corpuscular hemoglobin [Entitic mass] by Automated count 31.9 pg 27-33 [facility] Erythrocyte mean corpuscular hemoglobin concentration [Mass/volume] by Automated count 34.3 [facility].0[facility] width [Ratio] by Automated count 13.3 % 11.5-14.5 [facility] Platelets [#/volume] in Blood by Automated count 211 10*3/uL 150-400 [facility] Differential cell count method - Blood [facility] Neutrophils/100 leukocytes in Blood by Automated count 71 % [facility] Lymphocytes/100 leukocytes in Blood by Automated count 16 % [facility] Monocytes/100 leukocytes in Blood by Automated count 11 % [facility] Eosinophils/100 leukocytes in Blood by Automated count 2 % [facility] Basophils/100 leukocytes in Blood by Automated count 0 % [facility] Neutrophils [#/volume] in Blood by Automated count 5.71 10*3/uL 1.8-7 .0 [facility] Lymphocytes [#/volume] in Blood by Automated count 1.23 10*3/uL 1.2-4 .0 [facility] Monocytes [#/volume] in Blood by Automated count 0.84 10*3/uL 0-0.8 H [facility] Eosinophils [#/volume] in Blood by Automated count 0.14 10*3/uL 0-0.5 [facility] Basophils [#/volume] in Blood by Automated count 0.03 10*3/uL 0-0.2 [facility] Nucleated erythrocytes/100 leukocytes [Ratio] in Blood by Automated count 0 /100{WBCs} 0-0 [facility] ID Date Data Source [id number] 09/09/2020 06:46:58 AM [facility] Value Range Interpretation Code Description Data Negin rce(s) Supporting Document(s) Prothrombin time (PT) 12.9 s 12.5-14.9 [facility] INR in Platelet poor plasma by Coagulation assay 0.96 [facility] Routine intensity oral anticoagulation I NR is typically 2.0-3.0. Target INR must be clinically individualized. ID Date Data Source [id number] 09/09/2020 06:49:26 AM [facility] Value Range Interpretation Code Description Data Negin rce(s) Supporting Document(s) Erythrocyte sedimentation rate 21 mm/hr <20 H [facility] ID Date Data Source [id number] 09/09/2020 06:58:11 AM [facility] Value Range Interpretation Code Description Data Negin rce(s) Supporting Document(s) Lactate dehydrogenase [Enzymatic activit y/volume] in Serum or Plasma by Lactate to pyruvate reaction 220 U/L 122-225 [facility] ID Date Data Source [id number] 09/09/2020 06:58:11 AM [facility] Value Range Interpretation Code Description Data Negin rce(s) Supporting Document(s) Albumin [Mass/volume] in Serum or Plasma by Bromocresol green (BCG) dye binding method 3.9 g/dL 3.5-5.2 [facility] Bil[facility].total [Mass/volume] in Serum or Plasma 0.7 mg/dL <1.2 [facility] Calcium [Mass/volume] in Serum or Plasma 9.5 mg/dL 8.8-10.2 [facility] Chloride [Moles/volume] in Serum or Plasma 96 mmol/L 98-107 L [facility] Creatinine [Mass/volume] in Serum or Plasma 0.73 mg/dL 0.70-1.20 [facility] Glucose [Mass/volume] in Serum or Plasma 102 mg/dL 70-140 [facility] Alkaline phosphatase [Enzymatic activity/volume] in Serum or Plasma 112 U/L 40-129 [facility] Potassium [Moles/volume] in Serum or Plasma 4.0 mmol/L 3.4-5.1 [facility] Protein [Mass/volume] in Serum or Plasma 6.8 g/dL 6.4-8.3 [facility] Sodium [Moles/volume] in Serum or Plasma 132 mmol/L 136-145 L [facility] Aspartate aminotransferase [Enzymatic activity/volume] in Serum or Plasma 14 U/L <40 [facility] Urea nitrogen [Mass/volume] in Serum or Plasma 8 mg/dL 8-23 [facility] Osmolality of Serum or Plasma by calculation 272 mosm/kg 275-300 L [facility] Creatinine/Urea nitrogen [Mass Ratio] in Serum or Plasma 12 [facility] Bicarbonate [Moles/volume] in Serum 22 mmol/L 22-29 [facility] Alanine aminotransferase [Enzymatic activity/volume] in Seru m or Plasma 13 U/L <41 [facility] Anion gap 3 in Serum or Plasma 14 mmol/L 8-15 [facility] Glomerular filtration rate/1.73 sq M pre dicted among non-blacks [Volume Rate/Area] in Serum or Plasma by Creatinine-based formula (MDRD) >6 0 [facility] Glomerular filtration rate/1.73 sq M pre dicted among blacks [Volume Rate/Area] in Serum or Plasma by Creatinine-based formula (MDRD) >60 [facility] ID Date Data Source [id number] 09/08/2020 08:16:36 PM EDT [facility] Name Value Range Interpretation Code Description Data Negin rce(s) Supporting Document(s) Ammonia [Moles/volume] in Plasma 23 umol/L 16-60 [facility] ID Date Data Source [id number] 09/08/2020 07:06:00 PM EDT [facility] Name Value Range Interpretation Code Description Data Negin rce(s) Supporting Document(s) SARS-CoV-2 RNA 2019 nCoV Real-Time RT-PCR: NOT DETECTED [facility] This lab was ordered by [facility] and reported by [facility]. ID Date Data Source [id number] 09/08/2020 09:33:58 PM EDT [facility] Service Cmnt XXX-Imp : NoneRespiratory P CR Panel : PCR ResultsMicroorganism XXX Cult : See Labs Tab for 2019 nCoV RT-PCR resultsHAdV DNA QI GEORGE+non-probe : Not DetectedHCoV 229ERNA Nph QI GEORGE+non-probe : Not DetectedHCoV ZLV9LXE Nph QI GEORGE+non-probe : Not QydhzysqPAaCVR43 RNA Nph QI GEORGE+non-probe : Not RwayoxoxFZzMTP40 RNA Upper resp QI GEORGE+probe : Not DetectedhMPV RNA Nph QINAA+non-probe : Not DetectedRV+EV RNA Nph QI GEORGE+non-probe : Not DetectedFLUAV RNA Nph QI GEORGE+ non-probe : Not DetectedFLUBV RNA Nph QI GEORGE+non-probe : Not DetectedHPIV1 RNA NphQINAA+non-probe : Not DetectedHPIV2 RNA Nph QINAA+non-probe : Not DetectedHPVI3 RNA Nph GEORGE+non-probe : Not DetectedHPIV4 RNA Nph Q GEORGE+non-probe : Not DetectedRSV RNA Nph Q GEORGE+non-probe : Not DetectedB pert.PT PrmtNph Q GEORGE+non-probe : Not DetectedC pneum DNA Nph Q GEORGE+non-probe : Not DetectedM pneum DNA Nph Q GEORGE+non-probe : Not DetectedB izggtPS372 DNA Nph GEORGE+non-probe : Not Detected Name Value Range Interpretation Code Description Data Negin rce(s) Supporting Document(s) ID Date Data Source [id number] 09/08/2020 09:33:11 PM EDT [facility] Name Value Range Interpretation Code Description Data Negin rce(s) Supporting Document(s) Specimen source [Identifier] of Unspecified specimen [facility] SARS-CoV-2 RNA 2019 nCoV Real-Time RT-PCR: NOT DETECTED [facility] Assay Performed [facility] Patients first test for [facility] 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 [facility] Patient has symptoms related to [facility] When did you start to experience these symptoms [Date and time] [Phen X] [facility] Patient was hospitalized because of this condition [facility] patient was admitted to ICU for [facility] Patient resides in a congregate care setting [facility] status [facility] ID Date Data Source [id number] 09/08/2020 09:45:57 PM EDT [facility] Value Range Interpretation Code Description Data Negin rce(s) Supporting Document(s) Hepatitis C virus Ab [Presence] in Serum or Plasma by Immuno assay Non Reactive [facility] No serological evidence of active infect ion. If recent exposure is suspected, test for HCV RNA. ID Date Data Source [id number] 09/08/2020 05:54:39 PM EDT [facility] Name Value Range Interpretation Code Description Data Negin rce(s) Supporting Document(s) Leukocytes [#/volume] in Blood by Automated count 7.8 10*3/uL 4-10 [facility] Erythrocytes [#/volume] in Blood by Automated count 4.99 10*6/uL 4.6- 6.1 [facility] Hemoglobin [Mass/volume] in Blood 15.9 g/dL 13.5-18 [facility] Hematocrit [Volume Fraction] of Blood by Automated count 46.4 % 4 1-53 [facility] Erythrocyte mean corpuscular volume [Entitic volume] by Auto mated count 92.9 fL 80-96 [facility] Erythrocyte mean corpuscular hemoglobin [Entitic mass] by Automated count 31.9 pg 27-33 [facility] Erythrocyte mean corpuscular hemoglobin concentration [Mass/volume] by Automated count 34.4 g/dL 32.0-36.0 [facility] distribution width [Ratio] by Automated count 13.4 % 11.5-14.5 [facility] Platelets [#/volume] in Blood by Automated count 185 10*3/uL 150-400 [facility] Differential cell count method - Blood [facility] Neutrophils/100 leukocytes in Blood by Automated count 72 % [facility] Lymphocytes/100 leukocytes in Blood by Automated count 14 % [facility] Monocytes/100 leukocytes in Blood by Automated count 12 % [facility] Eosinophils/100 leukocytes in Blood by Automated count 1 % [facility] Basophils/100 leukocytes in Blood by Automated count 1 % [facility] Neutrophils [#/volume] in Blood by Automated count 5.67 10*3/uL 1.8-7 .0 [facility] Lymphocytes [#/volume] in Blood by Automated count 1.07 10*3/uL 1.2-4 .0 L [facility] Monocytes [#/volume] in Blood by Automated count 0.91 10*3/uL 0-0.8 H [facility] Eosinophils [#/volume] in Blood by Automated count 0.10 10*3/uL 0-0.5 [facility] Basophils [#/volume] in Blood by Automated count 0.09 10*3/uL 0-0.2 [facility] Nucleated erythrocytes/100 leukocytes [Ratio] in Blood by Automated count 0 /100{WBCs} 0-0 [facility] ID Date Data Source [id number] 09/08/2020 06:13:53 PM [facility] Value Range Interpretation Code Description Data Negin rce(s) Supporting Document(s) Prothrombin time (PT) 12.9 s 12.5-14.9 [facility] INR in Platelet poor plasma by Coagulation assay 0.97 [facility] Routine intensity oral anticoagulation I NR is typically 2.0-3.0. Target INR must be clinically individualized. ID Date Data Source [id number] 09/08/2020 06:13:53 PM [facility] Value Range Interpretation Code Description Data Negin rce(s) Supporting Document(s) aPTT in Platelet poor plasma by Coagulation assay 28.7 s 24.0-33. 0 [facility] ID Date Data Source [id number] 09/08/2020 06:23:35 PM [facility] Value Range Interpretation Code Description Data Negin rce(s) Supporting Document(s) Albumin [Mass/volume] in Serum or Plasma by Bromocresol green (BCG) dye binding method 3.9 g/dL 3.5-5.2 [facility] Bilirubin.total [Mass/volume] in Serum or Plasma 0.7 mg/dL <1.2 [facility] Bilirubin.direct [Mass/volume] in Serum or Plasma 0.2 mg/dL <0.3 [facility] Alkaline phosphatase [Enzymatic activity/volume] in Serum or Plasma 112 U/L 40-129 [facility] Aspartate aminotransferase [Enzymatic activity/volume] in Serum or Plasma 13 U/L <40 [facility] Alanine aminotransferase [Enzymatic activity/volume] in Seru m or Plasma 13 U/L <41 [facility] Protein [Mass/volume] in Serum or Plasma 6.5 g/dL 6.4-8.3 [facility] ID Date Data Source [id number] 09/08/2020 06:23:35 PM [facility] Value Range Interpretation Code Description Data Negin rce(s) Supporting Document(s) Bicarbonate [Moles/volume] in Serum 24 mmol/L 22-29 [facility] Chloride [Moles/volume] in Serum or Plasma 96 mmol/L 98-107 L [facility] Creatinine [Mass/volume] in Serum or Plasma 0.75 mg/dL 0.70-1.20 [facility] Glucose [Mass/volume] in Serum or Plasma 109 mg/dL 70-140 [facility] Potassium [Moles/volume] in Serum or Plasma 4.3 mmol/L 3.4-5.1 [facility] Sodium [Moles/volume] in Serum or Plasma 132 mmol/L 136-145 L [facility] Urea nitrogen [Mass/volume] in Serum or Plasma 6 mg/dL 8-23 [facility] Anion gap 3 in Serum or Plasma 12 mmol/L 8-15 [facility] Osmolality of Serum or Plasma by calculation 271 mosm/kg 275-300 L [facility] Creatinine/Urea nitrogen [Mass Ratio] in Serum or Plasma 9 [facility] Calcium [Mass/volume] in Serum or Plasma 9.3 mg/dL 8.8-10.2 [facility] Glomerular filtration rate/1.73 sq M pre dicted among non-blacks [Volume Rate/Area] in Serum or Plasma by Creatinine-based formula (MDRD) >6 0 [facility] Glomerular filtration rate/1.73 sq M pre dicted among blacks [Volume Rate/Area] in Serum or Plasma by Creatinine-based formula (MDRD) >60 [facility] ID Date Data Source [id number] 09/08/2020 01:03:00 PM EDT [facility] ([facility]) Name Value Range Interpretation Code Description Data Negin rce(s) Supporting Document(s) Influenza A Amplification Laboratory test result [facility] ([facility]) Negative results do not preclude influen za or RSV virus infection and should not be used as the sole basis for treatment or other patient management decisions. Influenza B Amplification Laboratory test result [facility] ([facility]) Negative results do not preclude influen za or RSV virus infection and should not be used as the sole basis for treatment or other patient management decisions. RSV Amplification Laboratory test result [facility] ([facility]) Negative results do not preclude influen za or RSV virus infection and should not be used as the sole basis for treatment or other patient management decisions. Laboratory test finding (navigational concept) Laboratory test result [facility] ([facility]) A false negative result may occur if a s pecimen is improperly collected, transported or handled. False [...] pathogens. DISCLAIMER: Testing was performed using the [employer] SARS-CoV-2 test. This test was developed and its performance characteristics determined by [employer]. This test has not been FDA cleared [...] the authorization is terminated or revoked sooner. ID Date Data Source [id number] 09/08/2020 01:03:00 PM EDT [facility] Name Value Range Interpretation Code Description Data Negin rce(s) Supporting Document(s) SARS coronavirus 2 RNA [Presence] in Res piratory specimen by GEORGE with probe detection NEGATIVE [facility] This lab was ordered by [facility] a nd reported by [facility] ID Date Data Source [id number] 09/08/2020 10:56:00 AM EDT [facility] ([facility] Name Value Range Interpretation Code Description Data Negin rce(s) Supporting Document(s) Laboratory test finding (navigational concept) 115 mg/dL 70-105 [facility] ([facility]) Laboratory test finding (navigational concept) 50.0 % 38.0-51.0 [facility] ([facility]) Laboratory test finding (navigational concept) 134 meq/L 136-145 [facility] ([facility]) Laboratory test finding (navigational concept) 3.9 meq/L 3.5-5.1 [facility] ([facility]) Laboratory test finding (navigational concept) 95 meq/L 98-109 [facility] ([facility]) Laboratory test finding (navigational concept) 4.7 mg/dL 4.5-5.3 [facility] ([facility]) Laboratory test finding (navigational concept) 6 mg/dL 8-26 [facility] ([facility]) Laboratory test finding (navigational concept) 24.0 MM/L 23.0-27.0 [facility] Laboratory test finding (navigational concept) 0.8 mg/dL 0.6-1.3 [facility] ([facility]) ID Date Data Source [id number] 09/08/2020 10:35:00 AM EDT [facility] ([facility] Name Value Range Interpretation Code Description Data Negin rce(s) Supporting Document(s) Ast/Sgot 16 U/L 7-37 [facility] ([facility]) Alt/SGPT 21 U/L 12-78 [facility] ([facility]) Alkaline Phosphatase 117 U/L 45-117 [facility] ([facility] Bilirubin,Direct 0.2 mg/dL 0.0-0.2 [facility] ([facility]) Bilirubin,Total 0.7 mg/dL 0.2-1.0 [facility] ([facility]) Total Protein 6.7 GM/DL 6.4-8.2 [facility] ([facility]) Albumin 3.5 GM/DL 3.2-5.2 [facility] ([facility]) Albumin/Globulin Ratio 1.1 [facility] ID Date Data Source [id number] 09/08/2020 10:35:00 AM EDT [facility] ([facility] Name Value Range Interpretation Code Description Data Negin rce(s) Supporting Document(s) Lipoprotein lipase [Enzymatic activity/volume] in Serum or Plasm a 78 U/L 73-393 [facility] ([facility]) Lactate [Mass/volume] in Serum or Plasma 1.2 mmol/L 0.4-2.0 [facility] ([facility]) Y/N query for Sepsis Lactate Rule: Y ID Date Data Source [id number] 09/08/2020 10:35:00 AM EDT [facility] ([facility]) Name Value Range Interpretation Code Description Data Negin rce(s) Supporting Document(s) White Blood Count 7.7 10 4.0-10.0 [facility] ([facility]) Red Blood Count 5.43 10 4.30-6.10 [facility] ([facility]) Hemoglobin 16.9 g/dL 13.5-17.5 [facility] Hematocrit 50.0 % 42.0-52.0 [facility] Mean Corpuscular Volume 92.1 fl 80.0-96.0 [facility] ([facility]) Mean Corpuscular HGB Conc 33.8 g/dL 32.0-36.5 [facility] NT ([facility]) Mean Corpuscular Hemoglobin 31.1 pg 27.0-33.0 [facility] ([facility]) Red Cell Distribution Width 12.2 % 11.5-14.5 [facility] ([facility]) Platelet Count, Automated 198 10 150-450 [facility] NT ([facility]) Lymph % 13.3 % 24.0-44.0 [facility]) Neutrophils % 73.2 % 36.0-66.0 [facility] Cache % 11.1 % 2.0-8.0 [facility] Eos % 1.6 % 0.0-3.0 [facility] Baso % 0.1 % 0.0-1.0 [facility]) Immature Granulocyte % 0.7 % 0-3.0 [facility] ([facility]) Neutrophils # 5.6 10 1.5-8.5 [facility] ([facility]) Nucleated Red Blood Cell % 0.0 % 0-0 [facility] ([facility]) Lymph # 1.0 10 1.5-5.0 [facility] Cache # 0.9 10 0.0-0.8 [facility] Eos # 0.1 10 0.0-0.5 [facility] Baso # 0.0 10 0.0-0.2 [facility]) ID Date Data Source [id number] 08/13/2020 10:51:00 AM EDT [facility] [address] [place] [address] [phone] NAME SEX PT STATUS ACCOUNT NUMBER DAVION RENNER [facility] ER [id number] ORDERING PHYSICIAN LOCATION MEDICAL RECORD NO. Rush Collins MD ER [id number] ATTENDING PHYSICIAN DATE OF DATE OF EXAM/TIME Rashaun Morales MD 1955 08/13/201005 TYPE / EXAM CT C-Spine without contrast REASON FOR EXAM left sided facial parasthesia Clinical History/Indication for Exam: left sided facial parasthesia CT CERVICAL SPINE WITHOUT INTRAVENOUS CONTRAST INDICATION: left sided facial paresthesia TECHNIQUE: Axial computed tomography images of the cervical spine without intravenous contrast. Sagittal and coronal reformatted images were created and reviewed. This CT exam was performed usingone or more of the following dose reduction techniques: automated exposure control, adjustment of the mA and/or kV according to patient size, and/or use of iterative reconstruction technique. COMPARISON: No relevant prior studies available. FINDINGS: Vertebrae: Mild spurring is seen in the lower cervical spine. No acute fracture. Discs/spinal canal/neural foramina: Mild disc space narrowing are seen at C5-6 and C6-7. Soft tissues: Unremarkable. Thyroid: No thyroid mass is seen. Lung apices: Mild centrilobular emphysema are seen in the lung apices. IMPRESSION: 1. No fracture is identified. 2. Normal alignment. 3. Mild C5-6 and C6-7 disc disease are seen. Automatic exposure control was used as a dose lowering technique. REPORT SIGNATURE ON FILE 08/13/2020 (10:51 Eastern Time ) Signed by: James Ghosh M.D. Reported By James Ghosh MD on 08/13/201050 Signed By James Ghosh MD on 08/13/201050 Date Time CC: James Ghosh MD; Rashaun Morales M.D. Techn: FROSA Trans Dt/Tm: Trans by: DT Prt Dt/Tm: : Total DLP = 1000.00 mGy-cm : Total Radiation Dose = 0.0000 mSv Lifetime Dose: 0.3534 mSv Name Value Range Interpretation Code Description Data Negin rce(s) Supporting Document(s) ID Date Data Source [id number] 08/13/2020 10:44:00 AM EDT [facility] [address] [place] [address] [phone] NAME SEX PT STATUS ACCOUNT NUMBER DAVION RENNER [facility] ER [id number] ORDERING PHYSICIAN LOCATION MEDICAL RECORD NO. Rush Collins MD ER [id number] ATTENDING PHYSICIAN DATE OF DATE OF EXAM/TIME Rashaun Morales MD 1955 08/13/201005 TYPE / EXAM CT Head without contrast REASON FOR EXAM left sided facial parasthesia Clinical History/Indication for Exam: left sided facial parasthesia CT HEAD WITHOUT INTRAVENOUS CONTRAST INDICATION: left sided facial paresthesia TECHNIQUE: Axial computed tomography images of the head/brain without i ntravenous contrast. Sagittal and coronal reformatted images were created and reviewed. This CT exam was performed using oneor more of the following dose reduction techniques: automated exposure control, adjustment of the mA and/or kV according to patient size, and/or use of iterative reconstruction technique. COMPARISON: No relevant prior studies available. FINDINGS: Brain: Unremarkable. No hemorrhage. No significant white matter disease. No edema. Ventricles: Unremarkable. No ventriculomegaly. Bones/joints: Unremarkable. No acute fracture. Soft tissues: Unremarkable. Vasculature: Vascular calcifications are seen in the bilateral internal carotid arteries. Sinuses: Unremarkable as visualized. No acute sinusitis. Mastoid air cells: Unremarkable as visualized. No mastoid effusion. IMPRESSION: 1. No acute intracranial abnormality is seen. 2. No intracranial bleed is identified. Automatic exposure control was used as a dose lowering technique. REPORT SIGNATURE ON FILE 08/13/2020 (10:44 Eastern Time ) Signed by: James Ghosh M.D. Reported By James Ghosh MD on 08/13/20 1044 Signed By James Ghosh MD on 08/13/20 1044 Date Time CC: James Ghosh MD; Rashaun Morales M.D. Techn: FROSA Trans Dt/Tm: Trans by: DT Prt Dt/Tm: : Total DLP = 114.00 mGy-cm : Total Radiation Dose = 0.3534 mSv Lifetime Dose: 0.3534 mSv Name Value Range Interpretation Code Description Data Negin rce(s) Supporting Document(s) ID Date Data Source [id number] 08/13/2020 09:51:00 AM EDT [facility] Name Value Range Interpretation Code Description Data Negin rce(s) Supporting Document(s) Leukocytes [#/volume] in Blood by Automated count 8.4 10*3/uL 4.45-10 .71 N [facility] Erythrocytes [#/volume] in Blood by Automated count 5.36 10*6/uL 4.3- 6.1 N [facility] Hemoglobin [Moles/volume] in Blood 16.9 g/dL 13-18 N [facility] Hematocrit [Volume Fraction] of Blood by Automated count 48.9 % 4 2-52 N [facility] Erythrocyte mean corpuscular volume [Ent itic volume] in Cord blood by Automated count 91 fL 80-96 N [facility] ital Erythrocyte mean corpuscular hemoglobin [Entitic mass] by Au tomated count 32 pg 27-31 Above high normal [facility] Erythrocyte mean corpuscular hemoglobin concentration [Mass/volume] in Cord blood 35 g/dL 33-37 N [facility] ital Erythrocyte distribution width [Entitic volume] by Automated count 12 % 11-15 N [facility] Platelets [#/volume] in Blood by Automated count 193 10*3/uL 130-472 N [facility] Platelet mean volume [Entitic volume] in Blood 9.1 fL 9.1-13.1 N [facility] Neutrophils/100 leukocytes in Blood by Automated count 76.5 % 41- 77 [facility] Neutrophils [#/volume] in Blood by Automated count 6.4 U 1.7-7.6 N [facility] Lymphocytes/100 leukocytes in Blood by Automated count 13.8 % 14-46 Below low normal [facility] Lymphocytes [#/volume] in Blood by Automated count 1.2 U 0.6-4.6 N [facility] Monocytes/100 leukocytes in Blood by Automated count 8.0 % 4-12 N [facility] Monocytes [#/volume] in Blood by Automated count 0.7 U 0.2-1.2 N [facility] Eosinophils/100 leukocytes in Blood by Automated count 0.8 % 0-7 N [facility] Eosinophils [#/volume] in Blood by Automated count 0.1 U 0.0-0.5 N [facility] Basophils/100 leukocytes in Blood by Automated count 0.5 % 0.4-1 .3 N [facility] Basophils [#/volume] in Blood by Automated count 0.0 U 0.0-0.2 N [facility] NUCLEATED RED BLOOD CELL 0 % [facility] NUCLEATED RED BLOOD CELL# 0 U [facility] Immature granulocytes [Presence] in Blood by Automated count 0-2 N [facility] Immature granulocytes [#/volume] in Blood by Automated count 0.0 U 0-0.1 N [facility] Manual Differential panel - Blood NO [facility] ID Date Data Source [id number] 08/13/2020 10:06:00 AM EDT [facility] Name Value Range Interpretation Code Description Data Negin rce(s) Supporting Document(s) Urea nitrogen [Mass/volume] in Serum or Plasma 6 mg/dL 9-23 Below low normal [facility] Sodium [Moles/volume] in Serum or Plasma 134 mmol/L 132-146 N [facility] Potassium [Moles/volume] in Serum or Plasma 4.4 mmol/L 3.5-5.5 N [facility] Chloride [Moles/volume] in Serum or Plasma 104 mmol/L 99-109 N [facility] Carbon dioxide, total [Moles/volume] in Serum or Plasma 28 mmol/L 20 -31 N [facility] Anion gap in Serum or Plasma 6 mmol/L 8-16 Below low normal [facility] Glucose [Mass/volume] in Serum or Plasma 111 mg/dL 74-106 Above high normal [facility] Creatinine 0.8 mg/dL 0.5-1.1 N [facility] Glomerular filtration rate/1.73 sq M.pre dicted [Volume Rate/Area] in Serum or Plasma Greater Than 60 ABOVE 60 [facility] Alanine aminotransferase [Enzymatic acti vity/volume] in Serum or Plasma by With P-5'-P 17 U/L 10-49 N [facility] ital Aspartate aminotransferase [Enzymatic ac tivity/volume] in Serum or Plasma by With P-5'-P 8 U/L 0-33 N [facility] pital Alkaline phosphatase [Enzymatic activity/volume] in Serum or Plasma 114 U/L 45-129 N [facility] Calcium [Mass/volume] in Serum or Plasma 9.0 mg/dL 8.5-10.1 [facility] Bilirubin.total [Mass/volume] in Serum or Plasma 0.7 mg/dL 0.3-1.2 [facility] Albumin [Mass/volume] in Serum or Plasma by Bromocresol purple (BCP) dye binding method 3.7 g/dL 3.2-4.8 N [facility] ital Protein [Mass/volume] in Serum or Plasma 7.2 g/dL 5.7-8.2 [facility] ID Date Data Source [id number] 08/18/2020 07:32:00 PM EDT [facility] Name Value Range Interpretation Code Description Data Negin rce(s) Supporting Document(s) Varicella zoster virus IgM Ab [Units/volume] in Serum by Imm unoassay <=0.90 <=0.90 [facility] < or = 0.90 Negative 0.91 - 1.09 Equivo loy > or = 1.10 PositiveResults from any one IgM assay should not be usedas a sole determinant of a current or recentinfection. Because an IgM test can yield false positiveresults and low levels of IgM antibody may persist formore than 12 months post infection, reliance on asingle test result could be misleading. If an acuteinfection is suspected, consider obtaining a newspecimen and submit for both IgG and IgM testing intwo or more weeks.THIS TEST WAS PERFORMED AT:[id number] [place] [address]VNDOLGDSILVIA CORTEZ MD,PHD ID Date Data Source [id number] 08/13/2020 09:51:00 AM EDT [facility] Name Value Range Interpretation Code Description Data Negin rce(s) Supporting Document(s) Erythrocyte sedimentation rate by Westergren method 1 mm/hr 0-20 N [facility] @Reenter manual test result: 1@by Angela naidu at 08/13/20 0944. ID Date Data Source [id number] 08/13/2020 10:06:00 AM EDT [facility] Name Value Range Interpretation Code Description Data Negin rce(s) Supporting Document(s) C reactive protein [Mass/volume] in Serum or Plasma Less Than 2.9 0.0 -5.0 N [facility] @Report as less than lower limit ID Date Data Source [id number] 08/18/2020 07:32:00 PM EDT [facility] Name Value Range Interpretation Code Description Data Negin rce(s) Supporting Document(s) Varicella zoster virus IgG Ab [Units/volume] in Serum by Immunoassay 1888.00 [facility] Interpretatio n --------- <135.00 Negative - Antibody not detected 135.00 - 164.99 Equivocal > or = 165.00 Positive - Antibody detected A positive result indicates that the patient has antibody to VZV but does not differentiate between an active or past infection. The clinical d iagnosis must be interpreted in conjunction with the [...] is Varicella Zoster Virus Antibody Immunity Screen, ACIF.THIS TEST WAS PERFORMED AT:[employer] [id number] MERATI,MD ID Date Data Source [id number] 08/13/2020 09:40:00 AM EDT [facility] ([facility]) Name Value Range Interpretation Code Description Data Negin rce(s) Supporting Document(s) Varicella zoster virus IgG Ab [Units/volume] in Serum by Immunoassay 1888.00 [facility] ) HEAD AND FACIAL NUMBNESS C reactive protein [Mass/volume] in Serum or Plasma by High sensitivity method Laboratory test result 0.0-5.0 [facility] ([facility]) HEAD AND FACIAL NUMBNESS Varicella zoster virus IgM Ab [Units/volume] in Serum by Immunoassay Laboratory test result [facility] ([facility] ) [employer]ACIAL [employer] ID Date Data Source [id number] 08/13/2020 09:40:00 AM EDT [facility] ([facility]) Name Value Range Interpretation Code Description Data Negin rce(s) Supporting Document(s) Urea nitrogen [Mass/volume] in Serum or Plasma 6 mg/dL 9-23 [facility] ([facility]) [employer] Sodium [Moles/volume] in Serum or Plasma 134 mmol/L 132-146 [facility] ([facility]) [employer] Potassium [Moles/volume] in Serum or Plasma 4.4 mmol/L 3.5-5.5 [facility] ([facility]) [employer] Chloride [Moles/volume] in Serum or Plasma 104 mmol/L 99-109 [facility] ([facility]) [employer] Anion gap in Serum or Plasma 6 mmol/L 8-16 M [facility] ([facility]) HEAD AND FACIAL NUMBNESS Carbon dioxide, total [Moles/volume] in Serum or Plasma 28 mmol/L 20 -31 [facility] ([facility]) [employer]AC[employer] Creatinine 0.8 mg/dL 0.5-1.1 [facility] [employer] Glucose [Mass/volume] in Serum or Plasma 111 mg/dL 74-106 [facility] ([facility]) [employer] Alanine aminotransferase [Enzymatic acti vity/volume] in Serum or Plasma by With P-5'-P 17 U/L 10-49 [facility] [employer] Glomerular filtration rate/1.73 sq M.pre dicted [Volume Rate/Area] in Serum or Plasma Laboratory [facility] [employer] Alkaline phosphatase [Enzymatic activity/volume] in Serum or Plasma 114 U/L 45-129 [facility] [employer]ACIAL [employer]ESS Aspartate aminotransferase [Enzymatic ac tivity/volume] in Serum or Plasma by With P-5'-P 8 U/L 0-33 [facility] HEAD AND FACIAL NUMBNESS Calcium [Mass/volume] in Serum or Plasma 9.0 mg/dL 8.5-10.1 [facility] HEAD [employer]ACIAL [employer] Albumin [Mass/volume] in Serum or Plasma by Bromocresol purple (BCP) dye binding method 3.7 g/dL 3.2-4.8 [facility] HEAD [employer] FACIAL NUMBNESS Bilirubin.total [Mass/volume] in Serum or Plasma 0.7 mg/dL 0.3-1.2 [facility] HEAD AND FACIAL NUMBNESS Protein [Mass/volume] in Serum or Plasma 7.2 g/dL 5.7-8.2 [facility] [employer]ACIAL [employer] ID Date Data Source [id number] 08/13/2020 09:40:00 AM EDT [facility] ([facility]) Name Value Range Interpretation Code Description Data Negin rce(s) Supporting Document(s) Erythrocyte sedimentation rate by Westergren method 1 [facility] 0-20 [facility] [employer] ID Date Data Source [id number] 08/13/2020 09:40:00 AM EDT [facility] Name Value Range Interpretation Code Description Data Negin rce(s) Supporting Document(s) Leukocytes [#/volume] in Blood by Automated count 8.4 10*3/uL 4.45-10 .71 [facility] [employer] Hemoglobin [Moles/volume] in Blood 16.9 g/dL 13-18 [facility] [employer] Erythrocytes [#/volume] in Blood by Automated count 5.36 10*6/uL 4.3- 6.1 [facility] ([facility]) HEAD [employer] FACIAL [employer]BNESS Erythrocyte mean corpuscular volume [Ent itic volume] in Cord blood by Automated count 91 fL 80-96 [facility] ([facility] HEAD [employer] FACIAL [employer] Hematocrit [Volume Fraction] of Blood by Automated count 48.9 % 4 2-52 [facility] ([facility]) HEAD AND FACIAL NUMBNESS Erythrocyte mean corpuscular hemoglobin concentration [Mass/volume] in Cord blood 35 g/dL 33-37 [facility] ([facility][note 3]) [employer]ACIAL [employer] Erythrocyte mean corpuscular hemoglobin [Entitic mass] by Au tomated count 32 pg 27-31 [facility] ([facility]) HEAD [employer] FACIAL [employer]ESS Platelets [#/volume] in Blood by Automated count 193 10*3/uL 130-472 [facility] [employer]ACIAL [employer] Erythrocyte distribution width [Entitic volume] by Automated count 12 % 11-15 [facility] ([facility]) HEAD AND FACIAL NUMBNESS Platelet mean volume [Entitic volume] in Blood 9.1 fL 9.1-13.1 [facility] ([facility]) HEAD AND FACIAL NUMBNESS Neutrophils/100 leukocytes in Blood by Automated count 76.5 % 41- 77 [facility] ([facility]) HEAD AND FACIAL NUMBNESS Lymphocytes/100 leukocytes in Blood by Automated count 13.8 % 14- 46 [facility] ([facility]) HEAD AND FACIAL NUMBNESS Neutrophils [#/volume] in Blood by Automated count 6.4 U 1.7-7.6 [facility] ([facility]) HEAD AND FACIAL NUMBNESS Lymphocytes [#/volume] in Blood by Automated count 1.2 U 0.6-4.6 [facility] ([facility]) HEAD AND FACIAL NUMBNESS Monocytes/100 leukocytes in Blood by Automated count 8.0 % 4-12 [facility] ([facility]) HEAD AND FACIAL NUMBNESS Monocytes [#/volume] in Blood by Automated count 0.7 U 0.2-1.2 [facility] ([facility]) HEAD AND FACIAL NUMBNESS Eosinophils/100 leukocytes in Blood by Automated count 0.8 % 0-7 [facility] ([facility]) HEAD AND FACIAL NUMBNESS Eosinophils [#/volume] in Blood by Automated count 0.1 U 0.0-0.5 [facility] ([facility]) HEAD AND FACIAL NUMBNESS Basophils/100 leukocytes in Blood by Automated count 0.5 % 0.4-1 .3 [facility] ([facility]) HEAD AND FACIAL NUMBNESS Basophils [#/volume] in Blood by Automated count 0.0 U 0.0-0.2 [facility] ([facility]) HEAD AND FACIAL NUMBNESS Nucleated Red Blood Cell 0 % [facility] ([facility]) HEAD AND FACIAL NUMBNESS Laboratory test finding (navigational concept) 0 U [facility] ([facility]) HEAD AND FACIAL NUMBNESS Immature granulocytes [Presence] in Blood by Automated count 0.4 0-2 [facility] ([facility]) HEAD AND FACIAL NUMBNESS Immature granulocytes [#/volume] in Blood by Automated count 0.0 U 0-0.1 [facility] ([facility]) HEAD AND FACIAL NUMBNESS Manual Differential panel - Blood Laboratory test result [facility] HEAD AND FACIAL NUMBNESS ID Date Data Source [id number] 08/13/2020 09:19:00 AM EDT [facility] ED Physician Documentation NAME: DAVION RENNER : 1955 AGE: 64 MR#: [id number] SERVICE DATE: 08/13/[address]: Rush Collins MD PRIMARY CARE DR: Rashaun Morales M.D. ROOM#: [facility] Chief Complaint: HEENT Stated Complaint: HEAD AND FACIAL NUMBNESS Time Seen by Provider: 08/13/20 09:18 Source: patient and family Nurse screening for coronavirus: Recent Travel outside the country (where) HEENT Problem Narrative:: This is a 64-year-old white male comes in complaining of having some mild paresthesias of the left superior lateral aspect of his forehead that seems to extend around the lateral aspect of his cheek into the side of his nose. He denies ever having any type of pain. He has had no visual disturbances. the patient states he did have what sounds to be a vesicle that he noticed over the upper outer aspect of the left forehead over the last couple of days. His symptoms startedon Saturday of this week. They have not worsened. He states that he actually has had similar symptoms when he got stung by a bee or some other insect in the past but does not recall having any such incident today. Patient has never had a shingles shot. He denies any progression of the entity however he spoke to a friend of his who is a nurse who recommended that he be evaluated. Thepatient did come to the ED yesterday but after an extended wait because of high volume the patient left without being seen. Since that time he has had no extension or change of symptoms but just thought it should be evaluated. Head Neck, Mouth Adult Head Front + Back: 1. Area of reported paresthesia Allergies/Home Meds Allergies Allergy/AdvReac Type Severity Reaction Status Date / Time No Known Allergy Allergy Unknown Uncoded 05/21/13 17:12 Home Medications Medication Instructions Recorded Confirmed Last Taken Type acetaminophen [Tylenol Extra 1,000 mg PO PRN PRN 08/13/20 08/13/20 08/13/20 History Strength] atorvastatin 20 mg PO HS 08/13/20 08/13/20 08/13/20 History famciclovir 500 mg PO Q8H #21 tab 08/13/20 Unknown Rx omeprazole 20 mg PO DAILY 08/13/20 08/13/20 08/13/20 History prednisone 20 mg PO DAILY #15 tab 08/13/20 Unknown Rx Vital Signs Vital Signs: Vital Signs 08/13/20 09:19 08/13/20 11:28 Temperature 96.2 F L Pulse Rate 102 H Respiratory Rate 16 Blood Pressure 152/102 166/105 O2 Sat by Pulse Oximetry 97 PMH (from Triage) Patient Medical History PMH Reviewed/Updated as Needed: Yes PMH/PSH from Triage: Hypercholesterolemia, recent epigastric discomfort being evaluated currently byGI and PCP unchanged at time of this visit. Hx Recent Travel Nurse screening for coronavirus: Recent Travel outside the No country (where) PFSH Social History Does the Patient have a Healthcare Proxy: No Does Patient have a DNR?: No Does Patient have a Living Will?: No Smoking Status: Current every day smoker ROS Review of Systems Constitutional: Denies fever, chills, sweats, weakness, malaise, weight loss, weight gain or other Eyes: Denies vision change, eye discharge/drng, redness, eye pain, descr of pain, conjunctiva inflammation, eyelid inflammation, eyelid issues, floaters, foreign body, r/t accident, contact lensuser, wears glasses or other ENT: Reports other (Paresthesias as described in the HPI and chief complaint) Respiratory: Denies cough, sputum, orthopnea, SOB w/exertion rest, SOB with excertion, SOB at rest, SOB, stridor, wheezing, hemoptysis, pleuritic pain, exposures or other Cardiovascular: Denies chest pain, palpitations, orthopnea, hypertension, paroxysmal noc dyspnea, edema, light headedness, dyspnea on exertion, syncope, known heart murmurs, leg cramps w/walking, pain in feet/toes at night, varicose veins or other Gastrointestinal: Reports other (Complaint of intermittent epigastric discomfort especially after eating unchanged and currently being evaluated as an outpatient.) Genitourinary-Male: Denies dysuria, frequency, incontinence, hematuria, retention, cloudy or smoky urine, nocturia, kidney stones, urgency, prostate issue, penile discharge, rash or ulcers, impotence, erectile dysfunction, testicular issue, h/o STDs or other Musculoskeletal: Denies neck pain, shoulder pain, arm pain, back pain, hand pain, leg pain, foot pain, thigh or calf cramps, muscle weakness, muscle tenderness, joint swelling, sciatica, muscle pain, joint pain or other Skin/Breasts: Reports other (Reports having 1 vesicular type of small lesion over the upper lateral aspect of left forehead noted on Saturday or Saturday) Neurologic: Reports paresthesias (Over left forehead and lateral aspect of face and lateral aspect of nose as above described in chief complaint history of present illness) Psychiatric: Denies No Symptoms/Complaints, anxiety, depression, auditory hallucinations, visual hallucinations, suicidal thoughts, homicidal thoughts, hopelessness, helplessness, change in energy,change in sleep patterns, change in motivation, change in concentration, change in sexual urges, feelings of guilt, anhedonia or other Physical Exam General Physical Exam Narrative: There is a well-nourished well-developed 64-year-old gentleman who is awakealert oriented x3 no acute distress. General appearance: alert Head Head exam: Present atraumatic, normocephalic, normal inspection and other (Patient does have 1 smallarea of erythema that does appear to that could have had some minor crusting over the lateral aspectof the forehead on the left. The area measures approximately 2 to 3 mm in diameter. No other lesions are identified at this point in time.) Eye Eye exam: Present normal apperance, P ERRL, EOMI and other (Funduscopic exam is unremarkable bilaterally. Patient has no photophobia. The sclera are completely clear. There is no type of injection or signs of inflammation or discomfort.); Absent scleral icterus, conjunctival injection, nystagmus, periorbital swelling or periorbital tenderness Pupils: Present normal accommodation ENT ENT exam: Present normal exam, normal orophraynx, mucous membranes moist, TM's normal bilaterally and normal external ear exam Neck Neck exam: Present normal inspection, full ROM and supple; Absent tenderness, meningismus or lymphadenopathy Respiratory Respiratory exam: Present normal lung sounds bilaterally and respiratory distress Cardiovascular Cardiovascular Exam: Present regular rate and normal rhythm GI/Abdominal GI/Abdominal exam: Present Abd soft, bowel sounds present all quadrents Rectal Rectal exam: Present deferred Extremities Exam Extremities exam: Present normal inspection, Full ROM without tenderness, capillary refill brisk andfull ROM; Absent tenderness Neurological Exam Neurological exam: Present alert, oriented X3, CN II-XII intact, normal gait and other (Patient doeshave a subjective feeling of less feeling over the left forehead and left lateral aspect of the face. He is able to feel light touch but certainly states that it feels less sensitive than the right side. He has absolutely no other motor or neurologic deficits.); Absent motor sensory deficit Psychiatric Psychiatric exam: Present normal affect, normal mood and anxious (Mildly anxious over symptoms.); Absent depressed or agitated Skin Skin exam: Present warm, dry, intact, normal color and vesicles (Patient does have 1 area over the superior lateral aspect of the forehead just below the hairline that is mildly erythematous circularnature measures approximately 2 to 3 mm which he states previously it had some crusting that now just appears to be minimally raised and erythematous.); Absent cyanosis, diaphoretic, erythema or urticaria Vital Signs Vital Signs: Vital Signs 08/13/20 09:19 08/13/20 11:28 Temperature 96.2 F L Pulse Rate 102 H Respiratory Rate 16 Blood Pressure 152/102 166/105 O2 Sat by Pulse Oximetry 97 MDM (comprehensive) Lab Data Labs: 08/13/20 09:40 08/13/20 09:40 Radiology Data Radiology results: report reviewed Radiology impressions: CT head IMPRESSION: 1. No acute intracranial abnormality is seen. 2. No intracranial bleed is identified. CT C-spine IMPRESSION: 1. No fracture is identified. 2. Normal alignment. 3. Mild C5-6 and C6-7 disc disease are seen. Medical Decision Making Free Text/Narative:: I discussed with the patient and his that his findings are most consistentwith that of mild shingles. For that reason we are going to empirically treat him accordingly and have him follow-up with his PCP. We did discuss that the CT of the C-spine shows some mild degenerative changes in the lower C-spine but that is incidental finding that contributing to his symptoms today. He also was advised if there is any change of his symptoms that he should return immediately to the ED or preferably call his primary care provider to be seen by neurology. Discharge Plan Admission/Discharge Dx Primary DC Diagnosis: Left facial paresthesias, suspected shingles ED Provider: Rush Collins ED Status: Discharged Time Seen by Provider: 08/13/20 09:18 Triaged At: 08/13/20 09:06 Condition Condition: Stable Discharge Detail Disposition: Home, Self-Care Med Rec New Prescriptions: New famciclovir 500 mg tablet 500 mg PO Q8H Qty: 21 RF: 0 prednisone 20 mg tablet 20 mg PO DAILY Qty: 15 RF: 0 No Action atorvastatin 20 mg tablet 20 mg PO HS RF: 0 omeprazole 20 mg capsule,delayed release(DR/EC) 20 mg PO DAILY RF: 0 ac etaminophen [Tylenol Extra Strength] 500 mg Capsule 1,000 mg PO PRN PRN (Reason: Headache) RF: 0 Discharge Education Printouts: Shingles (ED) Follow Up Visit/Referrals: Rashaun Morales M.D. [Primary Care Provider] - (Call for follow-up appointment to be seen early next week) Discharge Problem: Facial paresthesia, Shingles Medications Medication reconciliation performed by provider at discharge: Yes Follow Up Care/Instructions Diet/Activity/Wound Care..: As we discussed your evaluation today shows no obvious dangerous cause for the left-sided facial numbness. It would appear on exam and by history that you very likely did have a mild case of herpes zoster (shingles). For this reason we are going to treat you for that with 2 different medications to prevent the symptoms from worsening. The first is an antiviral and the second is a steroid. You should take both of these as prescribed and then follow-up with Dr. Morales on Saturday for reevaluation. If at any point time you have worsening symptoms you are always welcome to returnto the ED but we recommend attempting to call his office for further directions if possible. *Discharge Patient* Discharge Orders: Discharge Order (Routine); Ordered 08/13/20 Ordered By: Rush Collins Discharge Date/Time: 08/13/20 11:29 Interventions Interventions: ED Discharge Instructions Last Done: 08/13/20 11:29 Head,Neck,Ears,Eyes Throat Assessment Last Done: 08/13/20 09:20 Report Signers: <Electronically signed by Rush Collins > Rush Collins 08/14/20 1547 Rush Collins SIGNATURE DA Report Cosigners: D: RAMONA 08/13/20918 T: RAMONA 08/13/20918 CC: Rashaun Morales M.D. Name Value Range Interpretation Code Description Data Negin rce(s) Supporting Document(s) ID Date Data Source [id number] 01/26/2020 07:43:00 AM EST [facility] ([facility]) Name Value Range Interpretation Code Description Data Negin rce(s) Supporting Document(s) Cholesterol [Mass/volume] in Serum or Plasma 158 mg/dL 131-200 [facility] ([facility]) Triglyceride [Mass/volume] in Serum or Plasma 165 mg/dL 30-150 [facility] ([facility]) Cholesterol in LDL [Mass/volume] in Serum or Plasma by calcu lation 83 CALC 50-159 [facility] ([facility]) Cholesterol in HDL [Mass/volume] in Serum or Plasma 42 mg/dL 35-60 [facility] ([facility]) ID Date Data Source [id number] 01/26/2020 07:43:00 AM EST [facility] ([facility]) Name Value Range Interpretation Code Description Data Negin rce(s) Supporting Document(s) Urea nitrogen [Mass/volume] in Serum or Plasma 13 mg/dL 7-18 [facility] ([facility]) Glucose [Mass/volume] in Serum or Plasma 110 mg/dL 74-99 [facility] ([facility]) 100-125 mg/dL PRE-DIABETES/FASTING >126 mg/dL DIABETES/FASTING Potassium [Moles/volume] in Serum or Plasma 4.2 meq/L 3.5-5.1 [facility] ([facility]) Sodium [Moles/volume] in Serum or Plasma 142 meq/L 136-145 [facility] ([facility]) Creatinine 1.0 mg/dL 0.6-1.3 [facility] ([facility]) Carbon dioxide, total [Moles/volume] in Serum or Plasma 33 meq/L 21 -32 [facility] ([facility]) Chloride [Moles/volume] in Serum or Plasma 104 meq/L 98-107 [facility] ([facility]) Calcium [Mass/volume] in Serum or Plasma 8.8 mg/dL 8.5-10.1 [facility] Total Bilirubin 0.8 mg/dL 0.2-1.0 [facility] ([facility]) Aspartate aminotransferase [Enzymatic activity/volume] in Serum or Plasma 18 U/L 15-37 [facility] ([facility] ) Alkaline phosphatase isoenzyme [Units/volume] in Serum or Pl asma 101 mg/dL 46-116 [facility] ([facility]) Alanine aminotransferase [Enzymatic activity/volume] in Seru m or Plasma 41 U/L 12-78 [facility] ([facility]) Albumin [Mass/volume] in Serum or Plasma 3.7 g/dL 3.4-5.0 [facility] ([facility]) Proteinase 3 Ab [Units/volume] in Serum 6.5 g/dL 6.4-8.2 [facility] ([facility]) A/G Ratio 1.32 CALC 1.00-1.90 [facility]) Glomerular filtration rate/1.73 sq M pre dicted among non-blacks [Volume Rate/Area] in Serum or Plasma by Creatinine-based formula (MDRD) Laboratory test result [facility] Glomerular filtration rate/1.73 sq M pre dicted among blacks [Volume Rate/Area] in Serum or Plasma by Creatinine-based formula (MDRD) Laboratory test result [facility] ([facility]) <content>CHRONIC KIDNEY DISEASE STAGING PER NKF</content>
<content></content>
<content>STAGE I & II GFR >= 60 NORMAL TO MILDLY DECREASED</content>
<content>STAGE III GFR 30-59 MODERATELY DECREASED</content>
<content>STAGE IV GFR 15-29 SEVERELY DECREASED</content>
<content>STAGE V GFR <15 VERY LITTLE GFR LEFT</content>
<content>ESRD GFR <15 ON PIPE CLEANING MACHINE OPERATOR</content>
<content></content> ID Date Data Source [id number] 01/26/2020 07:43:00 AM EST [facility] ([facility]) Name Value Range Interpretation Code Description Data Negin rce(s) Supporting Document(s) Creatine kinase [Enzymatic activity/volume] in Serum or Plasma 58 U /L 39-308 [facility] ID Date Data Source [id number] 11/25/2019 08:18:00 AM EDT [facility] ([facility]) Name Value Range Interpretation Code Description Data Negin rce(s) Supporting Document(s) Cholesterol [Mass/volume] in Serum or Plasma 255 mg/dL 131-200 [facility] ([facility]) Triglyceride [Mass/volume] in Serum or Plasma 189 mg/dL 30-150 [facility] ([facility]) Cholesterol in HDL [Mass/volume] in Serum or Plasma 35 mg/dL 35-60 [facility] ([facility]) Cholesterol in LDL [Mass/volume] in Serum or Plasma by calcu lation 182 CALC 50-159 [facility] ([facility]) ID Date Data Source [id number] 11/25/2019 08:18:00 AM EDT [facility] ([facility]) Name Value Range Interpretation Code Description Data Negin rce(s) Supporting Document(s) Urea nitrogen [Mass/volume] in Serum or Plasma 10 mg/dL 7-18 [facility] ([facility]) Glucose [Mass/volume] in Serum or Plasma 104 mg/dL 74-99 [facility] ([facility]) 100-125 mg/dL PRE-DIABETES/FASTING >126 mg/dL DIABETES/FASTING Sodium [Moles/volume] in Serum or Plasma 142 meq/L 136-145 [facility] ([facility]) Creatinine 1.0 mg/dL 0.6-1.3 [facility] Chloride [Moles/volume] in Serum or Plasma 104 meq/L 98-107 [facility] ([facility]) Potassium [Moles/volume] in Serum or Plasma 4.6 meq/L 3.5-5.1 [facility] ([facility]) Calcium [Mass/volume] in Serum or Plasma 9.0 mg/dL 8.5-10.1 [facility] ([facility]) Carbon dioxide, total [Moles/volume] in Serum or Plasma 31 meq/L 21 -32 [facility] ([facility]) Total Bilirubin 0.6 mg/dL 0.2-1.0 [facility] ([facility]) Alkaline phosphatase isoenzyme [Units/volume] in Serum or Pl asma 103 mg/dL 46-116 [facility] ([facility]) Aspartate aminotransferase [Enzymatic activity/volume] in Serum or Plasma 15 U/L 15-37 [facility] ([facility] ) Alanine aminotransferase [Enzymatic activity/volume] in Seru m or Plasma 30 U/L 12-78 [facility] ([facility]) Proteinase 3 Ab [Units/volume] in Serum 6.9 g/dL 6.4-8.2 [facility] ([facility]) Albumin [Mass/volume] in Serum or Plasma 3.7 g/dL 3.4-5.0 [facility] ([facility]) A/G Ratio 1.16 CALC 1.00-1.90 [facility]) Glomerular filtration rate/1.73 sq M pre dicted among non-blacks [Volume Rate/Area] in Serum or Plasma by Creatinine-based formula (MDRD) Laboratory test result [facility] ([facility] ) Glomerular filtration rate/1.73 sq M pre dicted among blacks [Volume Rate/Area] in Serum or Plasma by Creatinine-based formula (MDRD) Laboratory test result [facility] ([facility]) <content>CHRONIC KIDNEY DISEASE STAGING PER NKF</content>
<content></content>
<content>STAGE I & II GFR >= 60 NORMAL TO MILDLY DECREASED</content>
<content>STAGE III GFR 30-59 MODERATELY DECREASED</content>
<content>STAGE IV GFR 15-29 SEVERELY DECREASED</content>
<content>STAGE V GFR <15 VERY LITTLE GFR LEFT</content>
<content>ESRD GFR <15 ON PIPE CLEANING MACHINE OPERATOR</content>
<content></content> ID Date Data Source [id number] 11/25/2019 08:18:00 AM EDT [facility]) Name Value Range Interpretation Code Description Data Negin rce(s) Supporting Document(s) Prostate specific Ag [Mass/volume] in Serum or Plasma 1.41 ng/mL [facility] ([facility]) This assay was performed on the Siemens Dimension EXL using the B- Galactosidase/CPRG methodology and should not be compared interchangeably with other methods. The PSA should not be used alone as a screening test for the presence or absence of malignant disease. ID Date Data Source [id number] 11/25/2019 08:18:00 AM EDT [facility]) Name Value Range Interpretation Code Description Data Negin rce(s) Supporting Document(s) Erythrocytes [#/volume] in Blood by Automated count 5.42 x10*6/UL 4.2 0-6.30 [facility] Leukocytes [#/volume] in Blood by Automated count 7.7 x10*3/UL 4.1-10 .9 [facility] ([facility]) Hematocrit [Volume Fraction] of Blood by Automated count 49.4 % 3 7.0-51.0 [facility] ([facility]) Hemoglobin [Mass/volume] in Blood 17.2 g/dL 12.0-18.0 [facility] ([facility]) MCH 31.7 pg 26.0-32.0 [facility]) MCV 91.2 fL 80.0-97.0 [facility] Erythrocyte distribution width [Ratio] by Automated count 12.6 % 11.6-13.7 [facility] ([facility]) MCHC 34.8 g/dL 31.0-38.0 [facility] Platelets [#/volume] in Blood by Automated count 171 x10*3/UL 140-440 [facility] ([facility]) MPV 8.7 FL 7.8-11.0 [facility]) Lymph % 23.8 % 10.0-58.5 [facility] Mid % 7.3 % 1.7-9.3 [facility] Lymph # 1.8 x10*3/UL 0.6-4.1 [facility] ([facility]) Neut % 68.9 % 37.0-92.0 [facility] Mid # 0.6 x10*3/UL 0.1-0.6 [facility] ([facility]) Neut # 5.3 x10*3/UL 2.0-7.8 [facility] ([facility]) Procedure Social History Code Duration Value Status Description Data Source(s ) Alcohol intake 11/22/2020 12:00:00 AM EDT Ex-drinker (finding) comp leted Ex- drinker (finding) [facility] Tobacco use and exposure 11/22/2020 12:00:00 AM EDT Never used co mpleted Never used [facility] Smoking 11/22/2020 12:00:00 AM EDT Former smoker completed Former smoker [facility] Alcohol intake 11/09/2020 12:00:00 AM EDT Ex-drinker (finding) comp leted Ex- drinker (finding) [facility] Alcohol intake 10/21/2020 12:00:00 AM EDT Ex-drinker (finding) comp leted Ex- drinker (finding) [facility] Alcohol intake 10/14/2020 12:00:00 AM EDT Ex-drinker (finding) comp leted Ex- drinker (finding) [facility] 08/13/2020 09:20:00 AM EDT Current every day smoker co mpleted Current every day smoker [facility] Smoking 08/13/2020 09:20:00 AM EDT Current every day smoker co mpleted Current every day smoker [facility] 08/13/2020 09:20:00 AM EDT Current every day smoker co mpleted Current every day smoker [facility] 07/23/2020 12:00:00 AM EDT Smoker completed Smoker [facility] 07/23/2020 12:00:00 AM EDT Current smoker completed Curre nt smoker [facility] Vital Signs ID Date Data Source UNK Name Value Range Interpretation Code Description Data Source(s) Diastolic blood pressure 60 mm[Hg] 60 mm[Hg] [facility] Body weight 163.00 [lb_av] 163.00 [lb_av] [facility] ([facility]) Body mass index (BMI) [Ratio] 25.0 kg/m2 25.0 k g/m2 [facility] ([facility]) Heart rate 62 /min 62 /min [facility] ([facility]) Body height 67.75 [in_i] 67.75 [in_i] [facility] ([facility]) 5'7.75" 4 Systolic blood pressure 100 mm[Hg] 100 mm[Hg] [facility] ([facility]) Body weight 188.00 [lb_av] 188.00 [lb_av] [facility] ([facility]) Body mass index (BMI) [Ratio] 28.8 kg/m2 28.8 k g/m2 [facility] ([facility]) Heart rate 85 /min 85 /min [facility]) Body height 67.75 [in_i] 67.75 [in_i] [facility] ([facility]) 5'7.75" 4 Systolic blood pressure 138 mm[Hg] 138 mm[Hg] [facility] Diastolic blood pressure 82 mm[Hg] 82 mm[Hg] [facility] Body mass index (BMI) [Ratio] 29.3 kg/m2 29.3 k g/m2 [facility]) Systolic blood pressure 132 mm[Hg] 132 mm[Hg] [facility] Diastolic blood pressure 66 mm[Hg] 66 mm[Hg] [facility] ([facility]) Heart rate 90 /min 90 /min [facility]) Body height 67.75 [in_i] 67.75 [in_i] [facility]) 5'7.75" 4 Body weight 191.00 [lb_av] 191.00 [lb_av] [facility] ([facility]) Oxygen saturation in Arterial blood by Pulse oximetry 99 % 99 % [facility] ([facility]) Systolic blood pressure 134 mm[Hg] 134 mm[Hg] [facility] ([facility]) Diastolic blood pressure 90 mm[Hg] 90 mm[Hg] [facility]) Body height 67.75 [in_i] 67.75 [in_i] [facility] ([facility] [facility]) 5'7.75" 4 Body weight 199.00 [lb_av] 199.00 [lb_av] [facility] ([facility]) Body mass index (BMI) [Ratio] 30.5 kg/m2 30.5 k g/m2 [facility] ([facility]) Heart rate 72 /min 72 /min [facility] ([facility]) Systolic blood pressure 130 mm[Hg] 130 mm[Hg] [facility] ([facility]) Diastolic blood pressure 78 mm[Hg] 78 mm[Hg] [facility] Body height 67.75 [in_i] 67.75 [in_i] [facility] ([facility]) 5'7.75" 4 Body weight 203.00 [lb_av] 203.00 [lb_av] [facility] ([facility]) Body mass index (BMI) [Ratio] 31.1 kg/m2 31.1 k g/m2 [facility] ID Date Data Source [id number] 10/07/2020 09:57:01 AM [facility] Name Value Range Interpretation Code Description Data Source(s) TRANSFER FROM [facility] ID Date Data Source [id number] 09[facility] Name Value Range Interpretation Code Description Data Source(s) WEIGHT RECORDED 169 lb 169 lb [facility] Body height Measured 68 in 68 in [facility] ID Date Data Source [id number] 09/13/2020 10:46:49 AM [facility] Name Value Range Interpretation Code Description Data Source(s) TRANSFER FROM [facility] ID Date Data Source [id number] 09/22/2020 11:27:18 AM [facility] Name Value Range Interpretation Code Description Data Source(s) WEIGHT RECORDED 175.05 lb 175.05 lb [facility] Body height Measured 68 in 68 in [facility] TRANSFER FROM [facility] Patient Treatment Plan of Care Planned Activity Planned Date Details Description Data Source (s) Erythromycin 0.005 MG/MG Ophthalmic Ointment 10/21/2020 12:00:00 AM [facility] Proparacaine hydrochloride 5 MG/ML Ophthalmic Solution 10/14/2020 01:30:00 PM [facility] Erythromycin 0.005 MG/MG Ophthalmic Ointment 10/07/2020 12:00:00 PM [facility] Epinephrine 0.01 MG/ML / Lidocaine Hydrochloride 10 MG /ML Injectable Solution 10/07/2020 10:30:00 AM [facility] fluorescein-benoxinate (FLURATE) 0.25-0.4 % ophthalmic solution 1 drop 10/03/2020 02:30:00 PM [facility] Phenylephrine Hydrochloride 25 MG/ML Ophthalmic Soluti on 10/03/2020 02:30:00 PM [facility] Tropicamide 10 MG/ML Ophthalmic Solution 10/03/2020 02:30:00 PM [facility] Ofloxacin 3 MG/ML Ophthalmic Solution 10/03/2020 12:00:00 AM [facility] Erythromycin 0.005 MG/MG Ophthalmic Ointment 10/02/2020 12:00:00 AM [facility] pantoprazole 40 MG Delayed Release Oral Tablet 09/15/2020 12:00:00 AM [facility] Diclofenac Sodium 0.01 MG/MG Topical Gel 09/15/2020 12:00:00 AM [facility]
[2021-01-05] MEDS ORDERED: NS 1,000 ML IV ONE (11:50)
--- OUTSIDE RECORDS SUMMARY | 2021-01-05 12:03 | CCD ---
Author Author [facility] Organization [facility] Address Unknown Phone Unavailable Care Team Providers Care Mechanical Assembler Name Role Phone GAYAM, SINDHURI RESIDENT Unavailable [...] Unavailable Unavailable Jamie Morales MD Unavailable Unavailable RockinghamJamie MD Unavailable Unavailable AndrewJamie MD Unavailable Unavailable AndrewJamie MD Unavailable Unavailable RockinghamJamie MD Unavailable Unavailable AndrewJamie MD Unavailable Unavailable AndrewJamie MD Unavailable Unavailable RockinghamJamie MD Unavailable Unavailable RockinghamJamie MD Unavailable Unavailable RockinghamJamie MD Unavailable Unavailable AndrewJamie MD Unavailable Unavailable AndrewJamie MD Unavailable Unavailable RockinghamJamie MD Unavailable Unavailable RockinghamJamie MD Unavailable Unavailable AndrewJamie MD Unavailable Unavailable AndrewJamie MD Unavailable Unavailable AndrewJamie MD Unavailable Unavailable RockinghamJamie MD Unavailable Unavailable RockinghamJamie MD Unavailable Unavailable RockinghamJamie MD Unavailable Unavailable AndrewJamie MD Unavailable Unavailable AndrewJamie MD Unavailable Unavailable RockinghamJamie MD Unavailable Unavailable RockinghamJamie MD Unavailable Unavailable RockinghamJamie MD Unavailable Unavailable RockinghamJamie MD Unavailable Unavailable RockinghamJamie MD Unavailable Unavailable RockinghamJamie MD Unavailable Unavailable RockinghamJamie MD Unavailable Unavailable RockinghamJamie MD Unavailable Unavailable AndrewJamie MD Unavailable Unavailable RockinghamJamie MD Unavailable Unavailable AndrewJamie MD Unavailable Unavailable AndrewJamie MD Unavailable Unavailable RockinghamJamie MD Unavailable Unavailable AndrewJamie MD Unavailable Unavailable AndrewJamie MD Unavailable Unavailable RockinghamJamie MD Unavailable Unavailable AndrewJamie MD Unavailable Unavailable RockinghamJamie MD Unavailable Unavailable RockinghamJamie MD Unavailable Unavailable AndrewJamie MD Unavailable Unavailable AndrewJamie MD Unavailable Unavailable RockinghamJamie MD Unavailable Unavailable RockinghamJamie MD Unavailable Unavailable RockinghamJamie MD Unavailable Unavailable AndrewJamie MD Unavailable Unavailable AndrewJamie MD Unavailable Unavailable RockinghamJamie MD Unavailable Unavailable AndrewJamie MD Unavailable Unavailable RockinghamJamie MD Unavailable Unavailable RockinghamJamie MD Unavailable Unavailable AndrewJamie MD Unavailable Unavailable AndrewJamie MD Unavailable Unavailable AndrewJamie MD Unavailable Unavailable AndrewJamie MD Unavailable Unavailable AndrewJamie MD Unavailable Unavailable Rockingham, F Rodney MD Unavailable Unavailable RockinghamJamie MD Unavailable Unavailable AndrewJamie MD Unavailable Unavailable RockinghamJamie MD Unavailable Unavailable AndrewJamie MD Unavailable Unavailable RockinghamJamie MD Unavailable Unavailable AndrewJamie MD Unavailable Unavailable AndrewJamie MD Unavailable Unavailable RockinghamJamie MD Unavailable Unavailable RockinghamJamie MD Unavailable Unavailable RockinghamJamie MD Unavailable Unavailable AndrewJamie MD Unavailable Unavailable RockinghamJamie MD Unavailable Unavailable AndrewJamie MD Unavailable Unavailable RockinghamJamie MD Unavailable Unavailable RockinghamJamie MD Unavailable Unavailable RockinghamJamie MD Unavailable Unavailable AndrewJamie MD Unavailable Unavailable RockinghamJamie MD Unavailable Unavailable RockinghamJamie MD Unavailable Unavailable AndrewJamie MD Unavailable Unavailable RockinghamJamie figueroa MD Unavailable Unavailable Connelly, Aptrick Unavailable Any BRAN MD Unavailable Unavailable Any [...] is protected by Article 27-F of the [facility] Public Health law. If you continue you may have access to information: Regarding HIV / AIDS; Provided by facilities licensed or operated by the [facility] Office of Mental Health; or Provided by the [facility] Office for People With Developmental Disabilities. If such information is present, then the following [facility] mandated warning applies: This information has been [...] law may result in a fine or prison sentence or both. A general authorization for the release of medical or other information is NOT sufficient authorization for further disc losure. Allergies and Adverse Reactions Type Description Substance Reaction Status Data Source(s ) Propensity to adverse reactions NO KNOWN ALLERGIES NO KNOWN ALLERGIES [facility] Encounters Encounter Providers Location Date Indications Data Source(s ) Outpatient 01/20/2021 12:00:00 AM [facility] Outpatient Attender: Jonas Ordaz MD 01/05/2021 12:00:00 AM [facility] Outpatient Attender: WAYNE TANG MDReferrer: Jonas Ordaz MD [id number] 11/22/2020 12:00:00 AM EDT - 11/22/2020 01:05:06 PM EDT [facility] follow Outpatient Attender: WAYNE TANG MDReferrer: ROBERTO Asher MD [id number] 11/09/2020 12:00:00 AM EDT - 11/09/2020 04:54:22 PM EDT [facility] follow Outpatient Attender: WAYNE TANG MD 11/04/2020 12:00:00 AM T [facility] Outpatient Attender: WAYNE TANG MD 10/26/2020 12:00:00 AM T [facility] Outpatient Attender: Jonas Ordaz MD [id number] 10/25/2020 12:00 :00 AM EDT Secondary malignant neoplasm of brain [facility] Secondary malignant neoplasm of brain Outpatient Attender: Terrie Sainiender: TERRIE STALEY [id number] 10/21/2020 12:00:00 AM EDT - 10/21/2020 02:55:26 PM EDT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, left eye [facility]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, left eye Outpatient Attender: Patrick ConnellyAttender: PATRICK CONNELLY [id number] [facility] 10/14/2020 12:00:00 AM EDT - 10/14/2020 02:02:52 PM EDT [facility] Outpatient Attender: Patrick ConnellyAttender: PATRICK CONNELLY [id number] [facility] 10/07/2020 12:00:00 AM EDT - 10/07/2020 11:07:53 AM EDT [facility] Outpatient Attender: Rashaun Sosaall 0 10/05/2020 09:40:00 AM EDT [facility] ([facility] ) Outpatient Attender: Patrick ConnellyAttender: PATRICK CONNELLY A-XXH [facility] 10/03/2020 12:00:00 AM EDT - 10/03/2020 03:19:12 PM EDT [facility] Emergency Attender: RHINA [facility]ARDOZA [id number]/01 10:18:00 PM EDT - 10/02/2020 03:47:00 AM EDT cancer pt, vision issues, numbness on le ft side of face [facility] cancer pt, vision issues, numbness on le ft side of face Patient discharged. Outpatient [id number] [facility]: Jonas Ordaz MDAdmi tter: Jonas Ordaz MDReferrer: WAYNE TANG MD [id number] 09/21/2020 05:35:29 AM EDT - 09/21/2020 10:40:00 AM EDT Secondary malignant neoplasm of brain [facility] Secondary malignant neoplasm of brain Patient discharged. [facility] Kenji Mills MD 09/16/2020 12:00:00 AM T [facility] Inpatient Attender: ROBERTO Asher MDAdmi tter: PATRICIA GRACE MDReferrer: ROBERTO Asher MD 09/13/2020 12:00:00 AM EDT [facility] Inpatient Attender: GILDA BLAKE RES IDENTAttender: ROBERTO Asher MDAttender: PATRICIA GRACE MDAttender: Anupa Tanya MDAttender: RHINA CARDOZA MDAdmitter: PATRICIA GRACE MDReferrer: PATRICIA GRACE MDConsultant: LING BRAN MD [id number] 09/08/2020 12:00:00 AM EDT - 09/15/2020 06:31:00 PM EDT [facility] Patient discharged. Outpatient Attender: ADELIA Carty 0 08/18/2020 08:20:00 AM EDT [facility] ([facility] ) Emergency Attender: RUSH COLLINS MD 08/13 09:05:00 AM EDT - 08/13/2020 11:29:00 AM EDT HEAD AND FACIAL NUMBNESS [facility] l HEAD AND FACIAL NUMBNESS Patient discharged. Emergency Attender: Elmira Lynch MD 08/12 09:15:00 PM EDT - 08/12/2020 11:39:00 PM EDT FACE NUMBNESS [facility] l FACE NUMBNESS Patient discharged. Outpatient Attender: ADELIA Carty 0 08/01/2020 09:40:00 AM EDT [facility] ([facility] ) Outpatient Attender: ADELIA Carty 0 06/13/2020 03:20:00 PM EDT [facility] ([facility] ) Outpatient Attender: Rashaun Carty 0 11/25/2019 08:40:00 AM EDT [facility] ([facility] ) Immunizations Vaccine Date Status Description Data Source(s) 06/14/2020 12:00:00 AM EDT completed <td I D="[id number]">Pfizer SARS-CoV-2 Vaccination</td><td>06/14/2020, 05/24/2020</td><td></td> [facility] COVID-19 VACCINE Pfizer 06/14/2020 12:00:00 AM EDT completed [employer] Vaccine Series Complete: YESThis Data wa s Submitted to [facility] Via [employer]. 05/24/2020 12:00:00 AM EST completed <td I D="[id number]">Pfizer SARS-CoV-2 Vaccination</td><td>06/14/2020, 05/24/2020</td><td></td> [facility] COVID-19 VACCINE Pfizer 05/24/2020 12:00:00 AM EST completed [facility] Vaccine Series Complete: NOThis Data was Submitted to [facility] Via [employer]. INFLUENZA VIRUS VACCINE QUADRIVALENT 2019- (6 MOS [...] DAILY DOSE = 20 ML SOLD: 10/26/2020 [facility] 72 HR Fentanyl 0.025 MG/HR Transdermal [...] into the left eye Two Times Daily [facility] Proparacaine hydrochloride 5 MG/ML Ophth almic Solution proparacaine (ALCAINE) 0.5 % ophthalmic solution 1 drop proparacaine (ALCAINE) 0.5 % ophthalmic solution 1 drop 10/14/2020 01:30:00 PM EDT 1 [drp] Both Eyes a ctive [facility] 5 mg/5 mL 10/13/2020 12:00:00 AM EDT solution 140 TAKE 5ML BY MOUTH EVERY 6 HOURS NEEDED FOR PAIN LEVEL 5-10 MAXIMUM DAILY DOSE = 20ML TAKE 5ML BY MOUTH EVERY 6 HOURS NEEDED FOR PAIN LEVEL 5-10 MAXIMUM DAILY DOSE = 20ML SOLD: 10/16/2020 [facility] Ondansetron 4 MG Disintegrating Oral Tablet ONDANSETRON 10/12/2020 12:00:00 AM EDT tablet,disintegrating 120 DISSOLVE O NE TABLET ON TONGUE EVERY 6 HOURS NEEDED FOR NAUSEA MAXIMUM DAILY DOSE = FOUR TABLETS DISSOLVE ONE TABLET ON TONGUE EVERY 6 HOURS NEEDED FOR NAUSEA MAXIMUM DAILY DOSE = FOUR TABLETS SOLD: 10/16/2020 [facility] 12 mcg/hr 10/11/2020 12:00:00 AM EDT patch 72 hour 5 APPLY 1 PATCH EVERY 3 DAYS MAXIMUM DAILY DOSE = 1 APPLY 1 PATCH EVERY 3 DAYS MAXIMUM DAILY DOSE = 1 SOLD: 10/11/2020 [facility] Erythromycin 0.005 MG/MG Ophthalmic Oint ment erythromycin (ROMYCIN) ophthalmic ointment 1 cm erythromycin (ROMYCIN) ophthalmic ointment 1 cm 2020 12:00:00 PM EDT 1 cm Left Eye active [facility] Epinephrine 0.01 MG/ML / Lidocaine [place] chloride 10 MG/ML Injectable Solution lidocaine-EPINEPHrine 1 %-1:[id number] injection 1 mL lidocaine-EPINEPHrine 1 %- 1:201793 injection 1 mL 10/07/2020 10:30:00 AM EDT 1 mL Infiltrat ion active [facility] No Active Medications 10/05/2020 12:00:00 AM EDT active [facility] ([facility]) 250 mg/5 mL 10/04/2020 12:00:00 AM [...] MAXIMUM DAILY DOSE = 10ML SOLD: 12/09/2020 [facility] Phenylephrine Hydrochloride 25 MG/ML Oph thalmic Solution phenylephrine (MYDFRIN) 2.5 % ophthalmic solution 1 drop phenylephrine (MYDFRIN) 2.5 % ophthalmic solution 1 drop 10/03/2020 02:30:00 PM EDT 1 [drp] Both Eyes completed 1 drop, Both Eyes, Once, On Sat10/03/20 at 1430, For 1 dose [facility] Medication administered onsite fluorescein-benoxinate (FLURATE) 0.25-0.4 % ophthalmic solution 1 drop [id number] 10/03/2020 02:30:00 PM EDT 1 [drp] Both Eyes c ompleted 1 drop, Both Eyes, Once, On Sat10/03/20 at 1430, For 1 dose [facility] Medication administered onsite Tropicamide 10 MG/ML Ophthalmic Solution tropicamide (MYDRIACYL) 1 % ophthalmic solution 1 drop tropicamide (MYDRIACYL) 1 % ophthalmic solution 1 drop 10/03/2020 02:30:00 PM EDT 1 [drp] Both Eyes completed 1 drop, Both Eyes, Once, On Sat10/03/20 at 1430, For 1 dose [facility] Medication administered onsite Ofloxacin 3 MG/ML Ophthalmic Solution Of loxacin 0.3 % Ophthalmic Solution (OCUFLOX) Ofloxacin 0.3 % Ophthalmic Solution (OCUFLOX) 10/04/19 12:00:00 AM EDT 1 [drp] Left Eye active Place 1 drop into the left eye Four times daily [facility] 0.3 % 10/03/2020 12:00:00 AM [...] On 10/02/20 at 0315, For 1 dose [facility] Medication administered onsite Tetracaine hydrochloride 5 MG/ML Ophthal marissa Solution tetracaine (PONTOCAINE) 0.5 % ophthalmic solution 1 drop tetracaine (PONTOCAINE) 0.5 % ophthalmic solution 1 drop 10/02/2020 01:30:00 AM EDT 1 [drp] Both Eyes complet ed 1 drop, Both Eyes, Once, On 10/02/20 at 0130, For 1 dose [facility] Medication administered onsite fluorescein ophthalmic strip 1 mg [id number] 10/02/2020 01:30:00 AM E DT 1 {strip} Both Eyes completed 1 mg (1 strip) , Both Eyes, Once, On 10/02/20 at 0130, For 1 dose [facility] Medication administered onsite Erythromycin 0.005 MG/MG Ophthalmic Oint ment Erythromycin 5 MG/GM Ophthalmic Ointment (ROMYCIN) Erythromycin 5 MG/GM Ophthalmic Ointment (ROMYCIN) 01/2021 12:00:00 AM EDT 0.5 [in_us] Left Eye active Place 0.5 inches into the left eye Three times daily for 10 days [facility] Ondansetron 4 MG Disintegrating Oral Tablet ONDANSETRON [...] 09/19/2020 12:00:00 AM EDT ORAL completed [facility] ([facility]) Ondansetron 4 MG Disintegrating Oral Tablet Ondansetron 09/19/2020 12:00:00 AM EDT completed [facility] ([facility]) Acetaminophen 32 MG/ML Oral Suspension [Tylenol] Tylenol Inf ants 09/19/2020 12:00:00 AM EDT ORAL completed [facility] ([facility]) 500 mg/15 mL 09/19/2020 12:00:00 AM [...] topica lly Four times daily as needed [facility] pantoprazole 40 MG Delayed Release Oral Tablet Pantoprazole Sodium 40 MG Oral Tablet Delayed Release (PROTONIX) Pantoprazole Sodium 40 MG Oral Tablet De layed Release (PROTONIX) 09/15/2020 12:00:00 AM EDT 40 mg Oral active Take 1 tablet by mouth Two Times Daily [facility] 100,000 unit/mL 08/24/2020 12:00:00 AM EDT suspension 473 USE 5ML BY MOUTH TO SWISH AND SWALLOW FIVE TIMES A DAY FOR 10 DAYS USE 5ML BY MOUTH TO SWISH AND SWALLOW FIVE TIMES A DAY FOR 10 DAYS SOLD: 08/24/2020 [facility] Nystatin [id number] UNT/ML Oral Suspension Nystatin 08/23/2020 12:00:00 AM [...] 08/13/2020 11:15:13 AM EDT 20 MG active [facility] famciclovir 500 MG Oral Tablet Famciclovir Famciclovir 08/13/2020 11:14:58 AM EDT 500 MG active [facility] Omeprazole 20 MG Delayed Release Oral Capsule Omeprazole 08/13/2020 09:28:37 AM EDT 20 MG active [facility] Acetaminophen (Tylenol Extra Strength) 500 mg Capsule 08/13/2020 09:28:37 AM EDT 1000 MG active [facility] atorvastatin 20 MG Oral Tablet Atorvastatin Atorvastatin 08/13/2020 09:28:37 AM EDT 20 MG active [facility] 20 mg 08/13/2020 12:00:00 AM EDT [...] 2:00:00 AM EDT ORAL active [facility] ( [facility]) No Active Medications 11/25/2019 12:00:00 AM EDT completed [facility] ([facility]) Insurance Providers Payer name Policy type / Coverage type Policy ID Covered constitution party ID Covered constitution party's relationship to [place] Plan Information UMR U [id number] Self [id number] MEDICARE [id number] SP [id number] MEDICARE A [id number] Self [id number] UMR [facility] [id number] SP [id number] POMCO [id number] WI2 [id number] MEDICARE [id number] SP [id number] SELF PAY UNAVAILABLE SP UNAVAILA BLE UMR [facility] [id number] SP [id number] MEDICARE [id number] SP [id number] Problems, Conditions, and Diagnoses Code Display Name Description Problem Type Effective Dates Data Source(s) follow follow Diagnosis 11/22/2020 08:11:39 AM ED T [facility] 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, left eye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, left eye Diagnosis 10/21/2020 02:20:09 PM EDT [facility] cancer pt, vision issues, numbness on le ft side of face cancer pt, vision issues, numbness on left side of face Diagnosis 10/01/2020 10:18:00 PM EDT [facility] C79.31 Secondary malignant neoplasm of brain Se condary malignant neoplasm of brain Diagnosis 09/21/2020 06:09:37 AM EDT [facility] Surgeries/Procedures Procedure Description Date Indications Data Source(s) RADIOLOGY REPORT <td>RADIOLOGY REPORT</td><td ></td><td>11/15/2020 1:44 PM EDT</td><td></td><td></td> 11/15/2020 01:44:53 PM EDT [facility] Diabetic Retinal Eye Exam 10/21/2020 12:00:00 AM EDT [facility] ([facility]) Diabetic Retinal Eye Exam 10/07/2020 12:00:00 AM EDT [facility] ([facility]) OFFICE OUTPATIENT VISIT 25 MINUTES 10/05/2020 12:00:00 AM EDT [facility] ([facility]) Diabetic Retinal Eye Exam 10/03/2020 12:00:00 AM EDT [facility] ([facility]) OFFICE OUTPATIENT VISIT 15 MINUTES 08/18/2020 12:00:00 AM EDT [facility] ([facility]) CT C-Spine without contrast 08/13/2020 10:06:00 AM EDT [facility] CT Head without contrast 08/13/2020 10:06:00 AM EDT [facility] OFFICE OUTPATIENT VISIT 15 MINUTES 08/01/2020 12:00:00 AM EDT [facility] OFFICE OUTPATIENT VISIT 10 MINUTES 06/13/2020 12:00:00 AM EDT [facility] ([facility]) ECG ROUTINE ECG W/LEAST 12 LDS W/I&R 11/25/2019 12:00: 00 AM EDT [facility] ([facility]) Results ID Date Data Source [id number] 12/05/2020 02:58:00 PM EDT [facility] ([facility]) Name Value Range Interpretation Code Description Data Negin rce(s) Supporting Document(s) Influenza A Amplification Laboratory test result [facility] ([facility]) Negative results do not preclude influen za or RSV virus infection and should not be used as the sole basis for treatment or other patient management decisions. Influenza B Amplification Laboratory test result [facility] ([facility]) Negative results do not preclude influen za or RSV virus infection and should not be used as the sole basis for treatment or other patient management decisions. RSV Amplification Laboratory test result [facility] ([facility]) Negative results do not preclude influen za or RSV virus infection and should not be used as the sole basis for treatment or other patient management decisions. Laboratory test finding (navigational concept) Laboratory test result [facility] ([facility]) A false negative result may occur [...] pathogens. DISCLAIMER: Testing was performed using the [facility] SARS-CoV-2 test. This test was developed and its performance characteristics determined by [facility]. This test has not been FDA cleared [...] or revoked sooner. ID Date Data Source [id number] 12/05/2020 02:58:00 PM EDT [facility] Name Value Range Interpretation Code Description Data Negin rce(s) Supporting Document(s) SARS coronavirus 2 RNA [Presence] in Res piratory specimen by GEORGE with probe detection NEGATIVE [facility] This lab was ordered by [facility] a nd reported by [facility]. ID Date Data Source [id number] 12/05/2020 12:52:00 PM EDT [facility] ([facility]) Name Value Range Interpretation Code Description Data Negin rce(s) Supporting Document(s) Lactate [Mass/volume] in Serum or Plasma 1.1 mmol/L 0.4-2.0 [facility] ([facility]) Y/N query for Sepsis Lactate Rule: Y ID Date Data Source [id number] 12/05/2020 12:52:00 PM EDT [facility] Name Value Range Interpretation Code Description Data Negin rce(s) Supporting Document(s) CPK Creatine Phosphokinase 28 U/L 39-308 [facility] ([facility]) CK-MB Value Mass Laboratory test result [facility] ([facility]) MB/CK Relative Index 3.57 [facility] ([facility]) <content>DIAGNOSIS CRITERIA</content>
<content>MMB ng/ml Relative Index (RI)</content>
<content>NON-AMI < or = 5 N/A</content>
<content>TOMLIN ZONE > 5 < or = 4</content>
<content>AMI > 5 > 4</content>
<content></content> Troponin I Laboratory test result [facility] ([facility]) <content>Troponin I Reference Interval f or Siemens [place] LOCI:</content>
<content></content>
<content>99th Percentile= 0.00-0.045 ng/ml</content>
<content></content>
<content>Risk Stratification:</content>
<content><= 0.10 ng/ml Decreased Risk for Adverse Clinical</content>
<content>Events.</content>
<content>0.10-1.50 ng/ml Increased Risk for Adverse Clinical</content>
<content>Events. Evaluation of additional</content>
<content>criterion and/or repeat testing in 2-6</content>
<content>hours is suggested to rule out myocardial</content>
<content>damage.</content>
<content>>= 1.50 ng/ml Indicative of Myocardial Injury.</content>
<content></content> ID Date Data Source [id number] 12/05/2020 12:52:00 PM EDT [facility] ([facility]) Name Value Range Interpretation Code Description Data Negin rce(s) Supporting Document(s) Ast/Sgot 24 U/L 7-37 [facility] ([facility]) Alt/SGPT 24 U/L 12-78 [facility] ([facility]) Alkaline Phosphatase 142 U/L 45-117 [facility] ([facility]) Bilirubin,Total 0.8 mg/dL 0.2-1.0 [facility] ([facility]) Bilirubin,Direct 0.3 mg/dL 0.0-0.2 [facility] ([facility]) Total Protein 5.9 GM/DL 6.4-8.2 [facility] ([facility]) Albumin 2.8 GM/DL 3.2-5.2 [facility] ([facility]) Albumin/Globulin Ratio 0.9 [facility] ([facility]) ID Date Data Source [id number] 12/05/2020 12:52:00 PM EDT [facility] ([facility]) Name Value Range Interpretation Code Description Data Negin rce(s) Supporting Document(s) Glucose, Fasting 91 mg/dL 70-100 [facility] ([facility]) Creatinine For GFR 0.60 mg/dL 0.70-1.30 [facility] ([facility]) Blood Urea Nitrogen 11 mg/dL 7-18 [facility] ([facility]) Glomerular Filtration Rate Laboratory test result [facility] <content>Units are mL/min/1.73 m2</content>
<content></content>
<content>Chronic Kidney Disease Staging per NKF:</content>
<content></content>
<content>Stage I & II GFR >=60 Normal to Mildly Decreased</content>
<content>Stage III GFR 30- 59 Moderately Decreased</content>
<content>Stage IV GFR 15-29 Severely Decreased</content>
<content>Stage V GFR <15 Very Little GFR Left</content>
<content>ESRD GFR <15 on FABRICATION MACHINE OPERATOR</content>
<content></content> Sodium Level 130 meq/L 136-145 [facility] ([facility]) Potassium Serum 4.1 meq/L 3.5-5.1 [facility] ([facility]) Carbon Dioxide Level 26 meq/L 21-32 [facility] ([facility]) Chloride Level 95 meq/L 98-107 [facility] ([facility]) Calcium Level 8.7 mg/dL 8.8-10.2 [facility] ([facility]) Anion Gap 9 meq/L 8-16 [facility] ([facility] ID Date Data Source [id number] 12/05/2020 12:52:00 PM EDT [facility] ([facility]) Name Value Range Interpretation Code Description Data Negin rce(s) Supporting Document(s) Magnesium [Moles/volume] in Serum or Plasma 2.1 mg/dL 1.8-2.4 [facility] ([facility]) Thyroxine (T4) free [Mass/volume] in Serum or Plasma 1.28 ng/dL 0.76- 1.46 [facility] Thyrotropin [Units/volume] in Serum or Plasma by Detec tion limit <= 0.05 mIU/L 0.654 uIU/ML 0.358-3.740 [facility] ID Date Data Source [id number] 12/05/2020 12:52:00 PM EDT [facility] ([facility]) Name Value Range Interpretation Code Description Data Negin rce(s) Supporting Document(s) Red Blood Count 3.52 10 4.30-6.10 [facility] ([facility]) White Blood Count 7.1 10 4.0-10.0 [facility] ([facility]) Hemoglobin 11.6 g/dL 13.5-17.5 [facility] Hematocrit 33.6 % 42.0-52.0 [facility] ([facility]) Mean Corpuscular Volume 95.5 fl 80.0-96.0 [facility] ([facility]) Mean Corpuscular Hemoglobin 33.0 pg 27.0-33.0 [place] [facility] ([facility]) Red Cell Distribution Width 15.3 % 11.5-14.5 [place] [facility] ([facility]) Mean Corpuscular HGB Conc 34.5 g/dL 32.0-36.5 [facility] NT ([facility]) Platelet Count, Automated 146 10 150-450 [facility] ([facility]) Neutrophils % 72.2 % 36.0-66.0 [facility] ([facility]) Lymph % 11.0 % 24.0-44.0 [facility]) [place] % 13.1 % 2.0-8.0 [facility]) Eos % 1.4 % 0.0-3.0 [facility]) Immature Granulocyte % 2.0 % 0-3.0 [facility] ([facility]) Baso % 0.3 % 0.0-1.0 [facility]) Neutrophils # 5.2 10 1.5-8.5 [facility]) Nucleated Red Blood Cell % 0.0 % 0-0 [facility] ([facility]) [place] # 0.9 10 0.0-0.8 [facility]) Lymph # 0.8 10 1.5-5.0 [facility]) Eos # 0.1 10 0.0-0.5 [facility]) Baso # 0.0 10 0.0-0.2 [facility]) ID Date Data Source [id number] 11/23/2020 10:45:39 AM EDT [facility] Name Value Range Interpretation Code Description Data Ngein rce(s) Supporting Document(s) Progress Note [facility] [id number] lbm [file] [id number] ID Date Data Source [id number] 11/22/2020 10:20:00 AM EDT [facility]) Name Value Range Interpretation Code Description Data Negin rce(s) Supporting Document(s) Thyrotropin [Units/volume] in Serum or Plasma by Detec tion limit <= 0.05 mIU/L 0.432 uIU/ML 0.358-3.740 [facility] ([facility] ) Carcinoembryonic Ag [Mass/volume] in Serum or Plasma 12.2 ng/mL [facility] ([facility]) THE CEA ASSAY IS PERFORMED ON THE [employer] BY CHEMILUMINESCENCE AND SHOULD NOT BE COMPARED INTERCHANGEABLY WITH OTHER METHODS. IT SHOULD NOT BE USED ALONE A SCREENING TEST OR DIAGNOSIS FOR THE PRESENCE OR ABSENCE OF MALIGNANT DISEASE. PREDICTIONS OF DISEASE RECURRENCE SHOULD NOT BE BASED SOLELY ON VALUES OBTAINED FROM SERIAL PATIENT SERUM VALUES. Thyroxine (T4) free [Mass/volume] in Serum or Plasma 1.59 ng/dL 0.76- 1.46 [facility] ([facility]) ID Date Data Source [id number] 11/22/2020 10:20:00 AM EDT [facility] ([facility]) Name Value Range Interpretation Code Description Data Negin rce(s) Supporting Document(s) Glucose, Fasting 104 mg/dL 70-100 [facility] ([facility]) Blood Urea Nitrogen 8 mg/dL 7-18 [facility] ([facility]) Creatinine For GFR 0.67 mg/dL 0.70-1.30 [facility] ([facility]) Glomerular Filtration Rate Laboratory test result [facility] ([facility]) <content>Units are mL/min/1.73 m2</content>
<content></content>
<content>Chronic Kidney Disease Staging per NKF:</content>
<content></content>
<content>Stage I & II GFR >=60 Normal to Mildly Decreased</content>
<content>Stage III GFR 30- 59 Moderately Decreased</content>
<content>Stage IV GFR 15-29 Severely Decreased</content>
<content>Stage V GFR <15 Very Little GFR Left</content>
<content>ESRD GFR <15 on FABRICATION MACHINE OPERATOR</content>
<content></content> Sodium Level 131 meq/L 136-145 [facility] ([facility]) Potassium Serum 4.1 meq/L 3.5-5.1 [facility] ([facility]) Chloride Level 98 meq/L 98-107 [facility] ([facility]) Carbon Dioxide Level 27 meq/L 21-32 [facility] ([facility]) Anion Gap 6 meq/L 8-16 [facility] ([facility] [place]) Ast/Sgot 25 U/L 7-37 [facility] ([facility] [place]) Calcium Level 9.0 mg/dL 8.8-10.2 [facility] ([facility]) Alt/SGPT 22 U/L 12-78 [facility] ([facility] [place]) Alkaline Phosphatase 168 U/L 45-117 [facility] ([facility]) Bilirubin,Total 0.7 mg/dL 0.2-1.0 [facility] ([facility]) Albumin 2.8 GM/DL 3.2-5.2 [facility] ([facility] [place] [facility]) Total Protein 6.9 GM/DL 6.4-8.2 [facility] ([facility]) Albumin/Globulin Ratio 0.7 [facility] ([facility]) ID Date Data Source [id number] 11/22/2020 10:20:00 AM EDT [facility] ([facility]) Name Value Range Interpretation Code Description Data Negin rce(s) Supporting Document(s) White Blood Count 8.5 10 4.0-10.0 [facility] ([facility]) Hemoglobin 12.4 g/dL 13.5-17.5 [facility] ([facility]) Red Blood Count 3.84 10 4.30-6.10 [facility] ([facility]) Hematocrit 36.6 % 42.0-52.0 [facility]) Mean Corpuscular Volume 95.3 fl 80.0-96.0 [facility] ([facility]) Mean Corpuscular HGB Conc 33.9 g/dL 32.0-36.5 [facility] ([facility]) Red Cell Distribution Width 14.6 % 11.5-14.5 [place] [facility] ([facility]) Mean Corpuscular Hemoglobin 32.3 pg 27.0-33.0 [place] [facility] ([facility]) Neutrophils % 68.8 % 36.0-66.0 [facility] ([facility]) Platelet Count, Automated 178 10 150-450 [facility] ([facility]) Eos % 0.8 % 0.0-3.0 [facility]) Lymph % 10.5 % 24.0-44.0 [facility]) [place] % 14.7 % 2.0-8.0 [facility]) Immature Granulocyte % 4.5 % 0-3.0 [facility] ([facility]) Baso % 0.7 % 0.0-1.0 [facility]) Neutrophils # 5.8 10 1.5-8.5 [facility] ([facility]) Nucleated Red Blood Cell % 0.0 % 0-0 [facility] ([facility]) Lymph # 0.9 10 1.5-5.0 [facility]) [place] # 1.3 10 0.0-0.8 [facility]) Eos # 0.1 10 0.0-0.5 [facility]) Baso # 0.1 10 0.0-0.2 [facility]) ID Date Data Source [id number] 11/15/2020 01:19:00 PM EDT [facility] ([facility]) Name Value Range Interpretation Code Description Data Negin rce(s) Supporting Document(s) Glucose, Fasting 101 mg/dL 70-100 [facility] ([facility]) Blood Urea Nitrogen 12 mg/dL 7-18 [facility] ([facility]) Creatinine For GFR 0.56 mg/dL 0.70-1.30 [facility] ([facility]) Glomerular Filtration Rate Laboratory test result [facility] ([facility]) <content>Units are mL/min/1.73 m2</content>
<content></content>
<content>Chronic Kidney Disease Staging per NKF:</content>
<content></content>
<content>Stage I & II GFR >=60 Normal to Mildly Decreased</content>
<content>Stage III GFR 30- 59 Moderately Decreased</content>
<content>Stage IV GFR 15-29 Severely Decreased</content>
<content>Stage V GFR <15 Very Little GFR Left</content>
<content>ESRD GFR <15 on FABRICATION MACHINE OPERATOR</content>
<content></content> Sodium Level 129 meq/L 136-145 [facility] ([facility]) Potassium Serum 4.2 meq/L 3.5-5.1 [facility] ([facility]) Carbon Dioxide Level 29 meq/L 21-32 [facility] ([facility]) Chloride Level 96 meq/L 98-107 [facility] ([facility]) Anion Gap 4 meq/L 8-16 [facility] ([facility]) Calcium Level 8.6 mg/dL 8.8-10.2 [facility] ([facility]) Ast/Sgot 25 U/L 7-37 [facility] ([facility]) Bilirubin,Total 0.7 mg/dL 0.2-1.0 [facility] ([facility]) Alkaline Phosphatase 129 U/L 45-117 [facility] ([facility]) Alt/SGPT 23 U/L 12-78 [facility] ([facility]) Total Protein 6.3 GM/DL 6.4-8.2 [facility] ([facility]) Albumin 2.6 GM/DL 3.2-5.2 [facility] ([facility]) Albumin/Globulin Ratio 0.7 [facility] ([facility]) ID Date Data Source [id number] 11/15/2020 01:19:00 PM EDT [facility] ([facility]) Name Value Range Interpretation Code Description Data Negin rce(s) Supporting Document(s) White Blood Count 2.2 10 4.0-10.0 [facility] ([facility]) Red Blood Count 3.62 10 4.30-6.10 [facility] ([facility]) Hemoglobin 11.8 g/dL 13.5-17.5 [facility] ([facility]) Hematocrit 33.7 % 42.0-52.0 [facility] ([facility]) Mean Corpuscular Hemoglobin 32.6 pg 27.0-33.0 [place] [facility] ([facility]) Mean Corpuscular HGB Conc 35.0 g/dL 32.0-36.5 [facility] ([facility]) Mean Corpuscular Volume 93.1 fl 80.0-96.0 [facility] ([facility]) Red Cell Distribution Width 13.6 % 11.5-14.5 [place] [facility] ([facility]) Platelet Count, Automated 127 10 150-450 [facility] ([facility]) [place] % 36.5 % 2.0-8.0 [facility] ([facility] Lymph % 16.4 % 24.0-44.0 [facility] ([facility] [place]) Neutrophils % 43.4 % 36.0-66.0 [facility] ([facility]) Eos % 2.3 % 0.0-3.0 [facility] ([facility] [place] [facility] Baso % 0.9 % 0.0-1.0 [facility] ([facility] [place]) Nucleated Red Blood Cell % 0.0 % 0-0 [facility] ([facility]) Immature Granulocyte % 0.5 % 0-3.0 [facility] ([facility]) Neutrophils # 1.0 10 1.5-8.5 [facility] ([facility]) Lymph # 0.4 10 1.5-5.0 [facility]) [place] # 0.8 10 0.0-0.8 [facility]) Eos # 0.1 10 0.0-0.5 [facility]) Baso # 0.0 10 0.0-0.2 [facility]) ID Date Data Source [id number] 11/10/2020 01:31:00 PM EDT [facility] ([facility]) Name Value Range Interpretation Code Description Data Negin rce(s) Supporting Document(s) Platelets reticulated/100 platelets in Blood by Automated count 3.8 % 0.0-10.91 [facility] ([facility]) ID Date Data Source [id number] 11/10/2020 01:31:00 PM EDT [facility] ([facility]) Name Value Range Interpretation Code Description Data Negin rce(s) Supporting Document(s) White Blood Count 3.6 10 4.0-10.0 [facility] ([facility]) Hemoglobin 12.3 g/dL 13.5-17.5 [facility] ([facility]) Red Blood Count 3.77 10 4.30-6.10 [facility] ([facility]) Hematocrit 35.0 % 42.0-52.0 [facility] ([facility]) Mean Corpuscular Volume 92.8 fl 80.0-96.0 [facility] ([facility]) Mean Corpuscular HGB Conc 35.1 g/dL 32.0-36.5 [facility] ([facility]) Mean Corpuscular Hemoglobin 32.6 pg 27.0-33.0 [place] [facility] ([facility]) Red Cell Distribution Width 12.7 % 11.5-14.5 [place] [facility] ([facility]) Platelet Count, Automated 85 10 150-450 [facility] ([facility]) Lymph % 4.7 % 24.0-44.0 [facility]) Neutrophils % 75.0 % 36.0-66.0 [facility] ([facility]) [place] % 16.1 % 2.0-8.0 [facility] ([facility] [place] Eos % 2.8 % 0.0-3.0 [facility] Baso % 0.6 % 0.0-1.0 [facility] ([facility] [place] [facility]) Immature Granulocyte % 0.8 % 0-3.0 [facility] ([facility]) Neutrophils # 2.7 10 1.5-8.5 [facility] ([facility]) Nucleated Red Blood Cell % 0.0 % 0-0 [facility] ([facility]) Lymph # 0.2 10 1.5-5.0 [facility] [place] # 0.6 10 0.0-0.8 [facility] ([facility] [place] [facility]) Eos # 0.1 10 0.0-0.5 [facility] ([facility] [place] [facility]) Baso # 0.0 10 0.0-0.2 [facility] ([facility] [place] [facility] ID Date Data Source [id number] 11/10/2020 01:31:00 PM EDT [facility] ([facility]) Name Value Range Interpretation Code Description Data Negin rce(s) Supporting Document(s) Glucose, Fasting 107 mg/dL 70-100 [facility] ([facility]) Creatinine For GFR 0.54 mg/dL 0.70-1.30 [facility] ([facility]) Blood Urea Nitrogen 11 mg/dL 7-18 [facility] ([facility]) Glomerular Filtration Rate Laboratory test result [facility] ([facility]) <content>Units are mL/min/1.73 m2</content>
<content></content>
<content>Chronic Kidney Disease Staging per NKF:</content>
<content></content>
<content>Stage I & II GFR >=60 Normal to Mildly Decreased</content>
<content>Stage III GFR 30- 59 Moderately Decreased</content>
<content>Stage IV GFR 15-29 Severely Decreased</content>
<content>Stage V GFR <15 Very Little GFR Left</content>
<content>ESRD GFR <15 on FABRICATION MACHINE OPERATOR</content>
<content></content> Sodium Level 129 meq/L 136-145 [facility] ([facility]) Potassium Serum 3.8 meq/L 3.5-5.1 [facility] ([facility] [facility]) Chloride Level 97 meq/L 98-107 [facility] ([facility]) Carbon Dioxide Level 25 meq/L 21-32 [facility] Anion Gap 7 meq/L 8-16 [facility]) Alt/SGPT 22 U/L 12-78 [facility]) Ast/Sgot 17 U/L 7-37 [facility]) Calcium Level 8.3 mg/dL 8.8-10.2 [facility] ([facility]) Bilirubin,Total 0.6 mg/dL 0.2-1.0 [facility] ([facility]) Alkaline Phosphatase 116 U/L 45-117 [facility] Albumin 3.0 GM/DL 3.2-5.2 [facility] ([facility]) Total Protein 6.4 GM/DL 6.4-8.2 [facility] ([facility]) Albumin/Globulin Ratio 0.9 [facility] ([facility]) ID Date Data Source [id number] 11/09/2020 10:18:04 PM EDT [facility] Name Value Range Interpretation Code Description Data Negin rce(s) Supporting Document(s) Progress Note [facility] GNENZs4nSePUGlLz07/TRJuzSGQqq1CaJPiaAZx5JNehEPDxA5AzYLG4mZ0qWVY9YZzQKxGdCqSqBAO1 lbm [file] identification clerk+WU7HibmWAU5piTO4unPEpAADrS2ud6HS33v1olV101YWCAXtchdCJz8ayKV4hBUradv5PrXfT5aJJ [file] QUINTEN+HLsoPMrceRv8vEQpEIQjMb8BAWItMPEqZPLoCOYjLFXaYQZgUBVrNLCoPRMrQUBmNTDgLNMwVAWs ICAgICAgICAgICAgICAgICAgICAgICAgICAgICAgIC RbAWEtKNVzVDQiWFCgFENvQZAcQDEpYRIaUYNmHK1HOFNqOUDbGPRuYRPrXDKpIZVcOFOxZPCoWUBiXA AgICAgICAgICAgICAgICAgICAgICAgICAgICAgICAgICAgICAgICAgICAgICAgICAgICAgICAgICAgIC OrJGIzEPGyMSEeDN5ZXGXsSUFsNBEjGFUlFKUtIMZo ICAgICAgICAgICAgICAgICAgICAgICAgICAgICAgICAgICAgICAgICAgICAgICAgICAgICAgICAgICAg BVDsGMJrYRCvPVQrIURsVACuFZEcAF5UMNZaDGEoGRWeLISgJMOkLCJsREOyAGVjEHGvORGwVSMqRWLq ICAgICAgICAgICAgICAgICAgICAgICAgICAgICAgIC DpFOTvTPKjIKClCWRiFTRzNGPoJVOnOSUjVQOuGRTuGM7JCKNvWAAqOPNvXURcNSYiYITuPFJiKIKaWZ AgICAgICAgICAgICAgICAgICAgICAgICAgICAgICAgICAgICAgICAgICAgICAgICAgICAgICAgICAgIC DpYVLqBGNsHYNdEMEdPZ2BTAItVLUfGUYrLLImAFTq ICAgICAgICAgICAgICAgICAgICAgICAgICAgICAgICAgICAgICAgICAgICAgICAgICAgICAgICAgICAg FNDmGCIrQMMtVSFqCTPgWZYjEFUdQDEpMJ3VOMMxZJEaGKSbKQIyTHVxZJDlEJBpUOTjUZNjWXTnTAMv ICAgICAgICAgICAgICAgICAgICAgICAgICAgICAgIC ZjZYRfSTSlSXJhWKJmODAzKHFbHCVlWEEaWKKzQUIrFWKfUA6WTOMnGQHvJTMhFGPrIKKePXYfKYHvNW AgICAgICAgICAgICAgICAgICAgICAgICAgICAgICAgICAgICAgICAgICAgICAgICAgICAgICAgICAgIC FhNRJaAXSoDXJrADHwEDTpKE2QZHAnLNAwVUYbDQEh ICAgICAgICAgICAgICAgICAgICAgICAgICAgICAgICAgICAgICAgICAgICAgICAgICAgICAgICAgICAg JLMtMNDmDCTaBVWhYGUnHERtNXOyGRHrVWMnLR5VRUKlKACvPQFgNHRmDTUxHAYnNRDeQRZtSWJdGBNn ICAgICAgICAgICAgICAgICAgICAgICAgICAgICAgIC PmLLTnJQWuEJTdOCCnWEXsUBYpBJKhHTNrQOGoSDKnQQMrVQOqBL4RXS71dKJsv0D1QUInIS4raoh/Pg 8CMAhewlNquQEiZF7CWfUkDC2sim9SXzDxYW5mza3EZGcJHcPjP6N1iWPgKAMxRASTShDkX02qOZwcUc 56NXpcOLYgIoOcKEp4Cg8AXjSfG7vjNEZsQzI8XWYb AjN1JQYkMqH8OSYmUoBrHMvpZD1Kc7KcrSIoBYi+Hj3AYL3of3DcRAdnOoPuUP8bac1CXNyVKuAcY1Jg isH7VCJ3DCRdDg1IMYRlWSFltMWmDANbNFDQBkRvL7PtwI87WLMIKj0+DGufcwLaYqzAVuH4QNIor5Ff KZx0NP8EDVSrVGa6lAPjMQLlO3Spc5FnWx00RWLxUq cuKBermVNiwJHBMQ1sjTurRSRlWIGdZR4bXD8hQQZfDRZ4BnAfUCUMNA5KVOElGVSiuWUgRWJzXGENMJ 5WTRmxTIP7GPOuxdNtoIGkMOzsJU1FWUDaveZwLvJcOZXGXBh+Mj5MTT8bb2BcEBdoFUWuWV7ajn0FUC nFAlQyR2U2dIOfU5A1FUybKc5JHPBpAKShQiXxTQVF OGdrHK0ZXG9gutK1MF7RjVAbIMZqDEYeeTYxBNg7S88xnUGjTXplSR8TDMD+Romie+Sx0POAMwDQMbDYCf PvMlIMISAmPcE2HbK8OPi5GcP4XqYA30nJkqhsTpTIosHC7XBM9mPDNgAQRASK3LoJAvkJ8zekJiChMt OFCIAaWkF87vbMJeNFRoGTJbYJDlMe2AEPPdK1Gjba AgqWqlprBwCRLiMIPQJL9YKWvyhpNlrQGddWtgLV74jLawJN7SYs6LKfItVW5srm3XuXSrDf8WUCBmEf 2MGBAtKSNsLXIuRWR5HFCbThKuEWbhRTDePMZiHBC5NQAoEGJxTF1APlWhWVNpOqF5SgPhUZSiUPFrnp 7GMUAvDVEmUjM6XrFgEDAnSTIeSXgeQYJiTQNwIWJ4 YJRqILDfET8WNiLzEJCnFYY4VCIoFNCjDGEoxw4VOWUnRAAeYzl0ZXBtHAPySGYoAPggFQGrKFL9XZXe SLStCMMoZT6XBvTgQLHwIDevZKLgVWTxRGQxfh8APVTyRHLtOJM2AIYdKVSySORkQYqpXQWnWNT3ZKNj GECxQMJvST2JCoKaZAAoQRF6ZtDiDLOqQYHjgk3KJD KxZZYsYKW5BSGvYTBrOVTeSHhaLGMtBPSbGIWeBHMtZPMoGO2HPkOyBLChTWA5SXItLCJvRYKkaw5PBV BbOCJlInByPeEbMCTeQMGkRHhrZLKoLUWhHUmoEGKrSKBdCK8SNzRsAHVkLlC3QjMrCSTiGMDztp0PVC AkMQUdCnu1CuHpAROwGTIlKZpaSIXuQFO4TVL3CRVq HGRrTK0BWoFoLGSwGjE2XWIzHDAiRHIqew3URRLrFUGyIIY6FHEeVBHgTHAlKHewUZGuJJJ4WTKbJLBz SUGnFZ4RLnFfSAZgOeH7EBDpEWHaITUwxf7NWSFjOYMvDtK1ZaAdPDOlEXYsLPanCTDaHZJ3FiGlBNHk ARJeAH4MCzCcIXahIZGPUdq1IEciS0h6WTBoUm5RH7 Fnm4UqFfRgIORBZFeeCX6delIzOVIyCs7XK3zUBeohUEX3Jnz4K0NtDTM3LqrwDhqeIxG2S7OyPBWcNQ MoQS9rOOU7XWQnUFFbHKL7VTppCqE8YTTxEjivULR5OeIkORL0XrSnHX6UQg1GKyK7IUU3iFAeXp9BQo K4ZaDCDwFfIE3TTHn= ID Date Data Source [id number] 10/31/2020 10:44:00 AM EDT [facility] ([facility]) Name Value Range Interpretation Code Description Data Negin rce(s) Supporting Document(s) Glucose, Fasting 101 mg/dL 70-100 [facility] ([facility]) Blood Urea Nitrogen 8 mg/dL 7-18 [facility] ([facility]) Glomerular Filtration Rate Laboratory test result [facility] ([facility]) <content>Units are mL/min/1.73 m2</content>
<content></content>
<content>Chronic Kidney Disease Staging per NKF:</content>
<content></content>
<content>Stage I & II GFR >=60 Normal to Mildly Decreased</content>
<content>Stage III GFR 30- 59 Moderately Decreased</content>
<content>Stage IV GFR 15-29 Severely Decreased</content>
<content>Stage V GFR <15 Very Little GFR Left</content>
<content>ESRD GFR <15 on FABRICATION MACHINE OPERATOR</content>
<content></content> Creatinine For GFR 0.48 mg/dL 0.70-1.30 [facility] ([facility]) Potassium Serum 4.2 meq/L 3.5-5.1 [facility] ([facility]) Sodium Level 131 meq/L 136-145 [facility] ([facility]) Chloride Level 96 meq/L 98-107 [facility] ([facility]) Carbon Dioxide Level 29 meq/L 21-32 [facility] ([facility]) Anion Gap 6 meq/L 8-16 [facility] ([facility]) Ast/Sgot 27 U/L 7-37 [facility] ([facility]) Calcium Level 8.5 mg/dL 8.8-10.2 [facility] ([facility]) Alkaline Phosphatase 137 U/L 45-117 [facility] ([facility]) Alt/SGPT 21 U/L 12-78 [facility] ([facility]) Total Protein 6.2 GM/DL 6.4-8.2 [facility] ([facility]) Bilirubin,Total 0.8 mg/dL 0.2-1.0 [facility] ([facility]) Albumin 3.0 GM/DL 3.2-5.2 [facility] Albumin/Globulin Ratio 0.9 [facility] ([facility]) ID Date Data Source [id number] 10/31/2020 10:44:00 AM EDT [facility] ([facility]) Name Value Range Interpretation Code Description Data Negin rce(s) Supporting Document(s) Red Blood Count 4.16 10 4.30-6.10 [facility] ([facility]) White Blood Count 6.3 10 4.0-10.0 [facility] ([facility]) Hematocrit 38.8 % 42.0-52.0 [facility] Hemoglobin 13.3 g/dL 13.5-17.5 [facility] ([facility]) Mean Corpuscular Hemoglobin 32.0 pg 27.0-33.0 [facility] ([facility]) Mean Corpuscular Volume 93.3 fl 80.0-96.0 [facility] ([facility]) Mean Corpuscular HGB Conc 34.3 g/dL 32.0-36.5 [facility] ([facility]) Red Cell Distribution Width 13.0 % 11.5-14.5 [facility] ([facility]) Platelet Count, Automated 111 10 150-450 [facility] ([facility]) Neutrophils % 81.0 % 36.0-66.0 [facility] ([facility]) Lymph % 2.7 % 24.0-44.0 [facility]) [place] % 11.9 % 2.0-8.0 [facility]) Eos % 2.7 % 0.0-3.0 [facility]) Baso % 0.3 % 0.0-1.0 [facility]) Immature Granulocyte % 1.4 % 0-3.0 [facility] ([facility]) Nucleated Red Blood Cell % 0.0 % 0-0 [facility] ([facility]) Lymph # 0.2 10 1.5-5.0 [facility]) Neutrophils # 5.1 10 1.5-8.5 [facility] ([facility]) Baso # 0.0 10 0.0-0.2 [facility]) Eos # 0.2 10 0.0-0.5 [facility]) [place] # 0.8 10 0.0-0.8 [facility]) ID Date Data Source [id number] 10/31/2020 10:44:00 AM EDT [facility] ([facility]) Name Value Range Interpretation Code Description Data Negin rce(s) Supporting Document(s) Carcinoembryonic Ag [Mass/volume] in Serum or Plasma 30.5 ng/mL [facility] ([facility]) THE CEA ASSAY IS PERFORMED ON THE [employer] BY CHEMILUMINESCENCE AND SHOULD NOT BE COMPARED INTERCHANGEABLY WITH OTHER METHODS. IT SHOULD NOT BE USED ALONE A SCREENING TEST OR DIAGNOSIS FOR THE PRESENCE OR ABSENCE OF MALIGNANT DISEASE. PREDICTIONS OF DISEASE RECURRENCE SHOULD NOT BE BASED SOLELY ON VALUES OBTAINED FROM SERIAL PATIENT SERUM VALUES. ID Date Data Source [id number] 10/31/2020 10:44:00 AM EDT [facility] ([facility]) Name Value Range Interpretation Code Description Data Negin rce(s) Supporting Document(s) Thyroid Stimulating Hormone 0.394 uIU/ML 0.358-3.740 [facility] ([facility]) Free T4 1.31 ng/dL 0.76-1.46 [facility] ([facility]) ID Date Data Source [id number] 10/25/2020 01:20:53 PM EDT [facility] Name Value Range Interpretation Code Description Data Negin rce(s) Supporting Document(s) Progress Note [facility] LPDDLt0zDrIHFnJv21/MGXmgBIQvs7NpOIjzPVm0ZUjyHCErZ5PdRXF3sC7dVCV5CZrYJbYaLoEeLNFx [facility] [file] ERS1LRU3QQs8G9T7YKFnOqDzNtN+OA9mLXd+Ty1Ew2AkrmR9mzOnZTnmQOysJa3LBFZUS6DGGm== ID Date Data Source [id number] 10/21/2020 04:35:14 PM EDT [facility] Name Value Range Interpretation Code Description Data Negin rce(s) Supporting Document(s) Progress Note [facility] IHYUWl9wUvBDVaHf24/YPRccZIBak2SyLOifXRo5XGdtASToZ1HpYCC7kV4yWMM8KQhHHySeOkVwXnMr lbm [file] AgICAgICAgICAgICAgICAgICAgICAgICAgICAgICAgICAgICAgICAgICAgICAgICAgICAgICAgICAgIC AgICAgICAgICAgICAgICAgICAgICAgICAgICAgICAgICAgICAgDQogICAgICAgICAgICAgICAgICAgIC AgICAgICAgICAgICAgICAgICAgICAgICAgICAgICAg ICAgICAgICAgICAgICAgICAgICAgICAgICAgICAgICAgICAgICAgICAgICAgICAgDQogICAgICAgICAg ICAgICAgICAgICAgICAgICAgICAgICAgICAgICAgICAgICAgICAgICAgICAgICAgICAgICAgICAgICAg ICAgICAgICAgICAgICAgICAgICAgICAgICAgICAgDQ ogICAgICAgICAgICAgICAgICAgICAgICAgICAgICAgICAgICAgICAgICAgICAgICAgICAgICAgICAgIC AgICAgICAgICAgICAgICAgICAgICAgICAgICAgICAgICAgICAgICAgDQogICAgICAgICAgICAgICAgIC AgICAgICAgICAgICAgICAgICAgICAgICAgICAgICAg ICAgICAgICAgICAgICAgICAgICAgICAgICAgICAgICAgICAgICAgICAgICAgICAgICAgDQogICAgICAg ICAgICAgICAgICAgICAgICAgICAgICAgICAgICAgICAgICAgICAgICAgICAgICAgICAgICAgICAgICAg ICAgICAgICAgICAgICAgICAgICAgICAgICAgICAgIC AgDQogICAgICAgICAgICAgICAgICAgICAgICAgICAgICAgICAgICAgICAgICAgICAgICAgICAgICAgIC AgICAgICAgICAgICAgICAgICAgICAgICAgICAgICAgICAgICAgICAgICAgDQogICAgICAgICAgICAgIC AgICAgICAgICAgICAgICAgICAgICAgICAgICAgICAg ICAgICAgICAgICAgICAgICAgICAgICAgICAgICAgICAgICAgICAgICAgICAgICAgICAgICAgDQogICAg ICAgICAgICAgICAgICAgICAgICAgICAgICAgICAgICAgICAgICAgICAgICAgICAgICAgICAgICAgICAg ICAgICAgICAgICAgICAgICAgICAgICAgICAgICAgIC AgICAgDQogICAgICAgICAgICAgICAgICAgICAgICAgICAgICAgICAgICAgICAgICAgICAgICAgICAgIC FqTVFqDQMeHACyXXMyPRXaGIIbMXLeNFPqZQPlQVOiUQNsQLZwQZYiHIUwHQRfGIm4T9ejMBYdMLDuBX 1cTLh5Vq3+UPkVUzKkMPY6fzMxbV1LUJ8re5GbWGbi VCDxm5TbBTh1EJ7SDGFcLWdeAF0NRPtxmi6PPTCnZYTikVJLf4jhKkIiBJT8RZKuFlskEF8XITKoF1ko oxCwEBKhADXNOWpvZSDVYLepOJARBD8JPkJuR2VkdQ13VKKBOz2+TXvepiRaDziTJuGzDIDdb0LjCBb1 EC5DLHLdCfgup6LdVxJbPOJWLDpdNR1ZTAE8UCT1XX AkLx8VAJNeD578uxSzOI0MNc1QAtXiSM8rxp4ROcAhUXIwImnHSid3XFcyTA2BfDSiUUxXob1vkrWhcq SLr3XiijQfcLZFCSFrRCEMAPNbAMSjfEOxn34iPLCRUXVtwBV3SpDnWgMdEsGzJLV0IPIqTU5eCEjyHK 8BKHE9JVyjZDDxIWBcW7mRLtFiYUQrTVMbgZckGQ3O ZkDdF1VvyxMivTSyDzGgUBIDDs8+WPzuhwIuQaaNAzY5FRVbo8YcRUn4MR4YWTRcZGzeWE9FMWVtjH0y GVhgZL5SZeWlIBLhBYRWLcIpA41leGLqNCh6G9QaNiSjRYDmThthOTNdDMbrXfJaEBTlNlJeQCooZJ4+ ID4+HPxkNN1UEZcatlFvLFByXo7WNHSaFPSzAJ4pLD OjMLKqP4A7rYavCNGAVuTuL0ajamyuWW2oXEIlE517gEwjmqUkRZAgLBMdEj9JEAHtTWV8KWLekHAkDa KmEREWLZpwAI5WhDTvURM7hC5wQDfbPIHmIEUlL2xTElJcgEnhKM42kMxfzhUnfHSqHHl+Bi1KDR4hx3 PkLHk0keUkERutMIG1WRzfEYNhNCCkRDBqPOB2HFE8 FHIVWlMdHVJhDVYtJEyrVNBdKASuwo0JKSAkNYPjGmUpGPLvGUIyWCYvPPcmVNPxHJP3EAC9BESaXCSm GT2NVdVsNKXiANJvUKgiUSQaDQLiip8ZSPRkGWLfCbHhWZAkDKKnFAVxKRrwHTAjQRJjMmR8AOQnEWPq XH9GUhMjQFYhQKEvVSaoHURrHCBcun5VWOUwQHVeIw Q4HmXdLTEgHROdXIiuIOKbVBM8PBE7YNBoIRWhIB1TLnTsVCCmMGalWBceGSMwYYJeop5DPPAlLCElIT PpVNPkYAAsQMOxIKjjCRZtWBR9VGS9FIQaVFXgUF5CKnQnDBOjCVu0ZHxhCPSuKZBnjc8EFUNwKFLuCB I9EaPcVJPjYKKbOJshJWJnKWGkEBN4HQCeCQMdPE2Q CjTkMFWzBPRmIGrjWTXzOKDqvk1GRFXqUXFrYwZ8RzUoGMVfBZDwNPcyRMToZGWqFSYrVORqYSDfTD3D QyCsOPKsHaHeEUVmJZMsWHOrov3OFSSrMTKwYjL1QHVfNKHnXDToCXfgJOVaNKQhLCE5EAXqYNPeAD8B VeElOJFnHtV8TDnmKWZbKJGchu6CKIHlLTIbSLY7NA ZkXSUpVFOxJMjgRQShPBO9WjF6LQBoEZHyHL8GPcSkWRKdXcI0WAHbOSZzPQUcrt5KiDSjsMdkaj5QIY jSRb0SbDwtKXB7VEqfLw0ldEGoFVTdPLNWJq6SzmWmHWJtPPMYOZimMZFgVGA4ETBmDbZtTEPzDBFeYM XcBtK7Ged3UAD6IANqMYj3ZnP5RBsrUoZoHGJkHAB0 BvZmOXVsBTTcMwwzGRNcQSS8FMS+JX2aCIo+Ag7Rl0UjtxY8ldIrEAumDKzgBg5RKXWDD9EYWm== ID Date Data Source [id number] 10/14/2020 10:47:00 PM EDT [facility] ([facility]) Name Value Range Interpretation Code Description Data Negin rce(s) Supporting Document(s) Glucose, Fasting 107 mg/dL 70-100 [facility] ([facility]) Blood Urea Nitrogen 8 mg/dL 7-18 [facility] ([facility]) Creatinine For GFR 0.46 mg/dL 0.70-1.30 [facility] ([facility]) Sodium Level 130 meq/L 136-145 [facility] ([facility]) Glomerular Filtration Rate Laboratory test result [facility] ([facility]) <content>Units are mL/min/1.73 m2</content>
<content></content>
<content>Chronic Kidney Disease Staging per NKF:</content>
<content></content>
<content>Stage I & II GFR >=60 Normal to Mildly Decreased</content>
<content>Stage III GFR 30- 59 Moderately Decreased</content>
<content>Stage IV GFR 15-29 Severely Decreased</content>
<content>Stage V GFR <15 Very Little GFR Left</content>
<content>ESRD GFR <15 on FABRICATION MACHINE OPERATOR</content>
<content></content> Potassium Serum 4.2 meq/L 3.5-5.1 [facility] ([facility]) Chloride Level 96 meq/L 98-107 [facility] ([facility]) Anion Gap 10 meq/L 8-16 [facility] Carbon Dioxide Level 24 meq/L 21-32 [facility] ([facility]) Calcium Level 8.9 mg/dL 8.8-10.2 [facility] ([facility]) ID Date Data Source [id number] 10/14/2020 10:47:00 PM EDT [facility] ([facility]) Name Value Range Interpretation Code Description Data Negin rce(s) Supporting Document(s) White Blood Count 9.4 10 4.0-10.0 [facility] ([facility]) Red Blood Count 4.35 10 4.30-6.10 [facility] ([facility]) Hemoglobin 13.9 g/dL 13.5-17.5 [facility]) Mean Corpuscular Volume 90.8 fl 80.0-96.0 [facility] ([facility]) Hematocrit 39.5 % 42.0-52.0 [facility]) Mean Corpuscular Hemoglobin 32.0 pg 27.0-33.0 [facility] ([facility]) Mean Corpuscular HGB Conc 35.2 g/dL 32.0-36.5 [facility] ([facility]) Red Cell Distribution Width 12.3 % 11.5-14.5 [facility] ([facility]) Platelet Count, Automated 184 10 150-450 [facility] ([facility]) Neutrophils % 84.2 % 36.0-66.0 [facility] ([facility]) Lymph % 5.2 % 24.0-44.0 [facility]) [place] % 6.9 % 2.0-8.0 [facility]) Eos % 2.5 % 0.0-3.0 [facility]) Immature Granulocyte % 1.0 % 0-3.0 [facility] ([facility]) Baso % 0.2 % 0.0-1.0 [facility]) Neutrophils # 8.0 10 1.5-8.5 [facility] ([facility]) Nucleated Red Blood Cell % 0.0 % 0-0 [facility] ([facility]) [place] # 0.7 10 0.0-0.8 [facility]) Lymph # 0.5 10 1.5-5.0 [facility]) Eos # 0.2 10 0.0-0.5 [facility]) Baso # 0.0 10 0.0-0.2 [facility]) ID Date Data Source [id number] 10/14/2020 04:27:20 PM EDT [facility] Name Value Range Interpretation Code Description Data Negin rce(s) Supporting Document(s) Progress Note [facility] OKEBLi3nXnXXVzTo10/HKNrhHILtb8MfRHhnOLh9VYccQQQuB5YlJOI1eA4mACM4PBpCXjDjUhXnRwNn lbm [file] ICAgICAgICAgICAgICAgICAgICAgICAgICAgICAgICAgICAgICAgICAgICAgICAgICAgICAgICAgICAg ICAgICAgICAgICAgICAgICAgICAgICAgICAgICAgIC AgDQogICAgICAgICAgICAgICAgICAgICAgICAgICAgICAgICAgICAgICAgICAgICAgICAgICAgICAgIC AgICAgICAgICAgICAgICAgICAgICAgICAgICAgICAgICAgICAgICAgICAgDQogICAgICAgICAgICAgIC AgICAgICAgICAgICAgICAgICAgICAgICAgICAgICAg ICAgICAgICAgICAgICAgICAgICAgICAgICAgICAgICAgICAgICAgICAgICAgICAgICAgICAgDQogICAg ICAgICAgICAgICAgICAgICAgICAgICAgICAgICAgICAgICAgICAgICAgICAgICAgICAgICAgICAgICAg ICAgICAgICAgICAgICAgICAgICAgICAgICAgICAgIC AgICAgDQogICAgICAgICAgICAgICAgICAgICAgICAgICAgICAgICAgICAgICAgICAgICAgICAgICAgIC AgICAgICAgICAgICAgICAgICAgICAgICAgICAgICAgICAgICAgICAgICAgICAgDQogICAgICAgICAgIC AgICAgICAgICAgICAgICAgICAgICAgICAgICAgICAg ICAgICAgICAgICAgICAgICAgICAgICAgICAgICAgICAgICAgICAgICAgICAgICAgICAgICAgICAgDQog ICAgICAgICAgICAgICAgICAgICAgICAgICAgICAgICAgICAgICAgICAgICAgICAgICAgICAgICAgICAg ICAgICAgICAgICAgICAgICAgICAgICAgICAgICAgIC AgICAgICAgDQogICAgICAgICAgICAgICAgICAgICAgICAgICAgICAgICAgICAgICAgICAgICAgICAgIC AgICAgICAgICAgICAgICAgICAgICAgICAgICAgICAgICAgICAgICAgICAgICAgICAgDQogICAgICAgIC AgICAgICAgICAgICAgICAgICAgICAgICAgICAgICAg ICAgICAgICAgICAgICAgICAgICAgICAgICAgICAgICAgICAgICAgICAgICAgICAgICAgICAgICAgICAg DQogICAgICAgICAgICAgICAgICAgICAgICAgICAgICAgICAgICAgICAgICAgICAgICAgICAgICAgICAg ICAgICAgICAgICAgICAgICAgICAgICAgICAgICAgIC SnRSFiHIUoAMTwCPh5G4toKXUbNMUcZJ9uBIi7Dp3+WSaTZeNgQJR1flAzcS0DCG8yq7BpKYvdUZTxp1 ZzVGk2EK9UYJLcJUajSP4LYHipde3ZWRGpXQImuZTDs4fmImIjRWI5FPVzWujpTP8DHGOwF5cctsTeCC DuGITTULedHJFPNNfvXGYSAN9LWkKhC3XqfM48TJKR Cj4+CJnjvaQqUybGRfLnOWSrc3YnHUh7MK4VJTJxWpibl5SvQzUvPKLMWGkjUP2OMZG0DGZ0HMNyCi8A PNLmE382raOiPD3ZIb8WHgKfCL6ywb5BClJqOGRrLzvRSwa4CQyjVZ7WpUNgEImPkx9zyfVkysBDw3Mw jsLdaSTTXXraLWk5ySKeZQJAEAMjrRC6XbXgKpBlTy QgJKV1MMMcCV8gPWkvIG5KUDK4LUebWKSlYEZbX2fIUpIbUIChDCDudJuwHP3CDoPiL0GkxaYktCJyJl AwIFINCj4+MJryrkWxGqfGKbU9EOUsc7EhDJd9BZ0TZMKmDXlbJB6OGMPigD7oYDvoKK2VScPtGRQyDM JGFvKcM81hnQHvVVb3M8FcQjXoCVDhNyqgAOLoZQrx TmFtZXMgWyBdDQogID4+ID4+TSzjEA9JQGhasbFxGHGyOf2THZSdIXXhLV6zVJFkVQKlD6B8sDepTBEF QeYrD0tipeymAD8mEQXjB384fCkqbqFdAVFdSOZmSe1PIDLgOXH2JMMacOFtOpGxEMGAXDeqFH9UaGCr KXR7uV3pXFqvYMEvYFIqS7mNHtSlcSjjUE85nWoopj VsbCBdDQo+Dm0BXO5sa9RlDIc0sxFzXNgwZMC0MXpvRNHsONSaOQXhPXL1GEA1RIOAFzMkBXXvDXDtQH vdHUZqZIHaie9MOFXtPMMdHwJbRrVpOCCoAFNpSIxwXXNxLAF0EBFtKETgOZVjCL2AJkOcKMAqCUKzSA cvKLGoFJYukj3RJQPlYHZuSvZeIjKwAUXoYYTvVCet ZYSoAVHqLkCrQKBjSZGwMC0FQzLtFPYpCWBoXscjKMWpDKWprm1QTTRjCAGgZoZ7WYEjVYDaIBXxGGdq NCFvOGA5XYS2PXAfABZrXS7XClSdRQGfYAzzAgPdRQYqYZUizb8JLAArIDInQUDkXoGkTFUgYGQiTWlg EPCyMNM4TRE7RIXcVJPsFB7MUiUdENFtOQl9OCChHR VaHCUtga9EAKToLZHeTNQ6DEBoFRLtGJTrYPriHOWlUVDvDuCtAETvSHVaJE8UPzSiHGDdUXS4NITlTR KnBAIvhq0JRBVwANNzPnW0JRPdYUYpBMEfCQbwWRMiSWQfCyG7DHXqUWDzDV2FZtUqYSDbKwR4OPKeMH AjTTHrfi6BOJQjIMLgLiF6ORVaCVTdGZJuDFqqFMBs ZOReKzPhFINaOJOuEK0ABeArGCFlCdK5ADIaBMDgKNQikv1PHDZzOPAgZWD0WcTiWOLcPALdZDxrZTSn JCC3VhBfVNHeLTGhHU4XUmYfDPNwLjAtXzrxECZgRTLplw5HeGQkoCbtfl0QWOxKTx5SkQkoFSJ1MKlv Kq7leEKrFXUwWKCZNj9RqfFmKQZiMNJEHQnhRHThUU MwBFXpXWWwEFXiLGM7PaIkGKS2KEM7YWNoWzJ7PZJiTgA4PqErNzZ0YeM3FTR0GsG7ULMdHiU5FoukEW EzMTZhNTM+WM7aAEq+Es7Yg9BlyzC1cgZsCTgrUVYoTf3MSFWNE0TOXr== ID Date Data Source [id number] 10/07/2020 12:25:01 PM EDT [facility] Name Value Range Interpretation Code Description Data Negin rce(s) Supporting Document(s) Progress Note [facility] PYJWKw8uVxRAVqBo15/JMQwlREClp6GvXNdnJYz7MCnhUMBpU3GrWNU5dJ9mTUB4ELfONdJcWzNeYgP2 lbm PvDyxIUvBqSAUxXblVMfOuYSesIewvvEEnFE8HmZY0LBLhW52iECUrKCCvC4OiDYEyBVM+Gd2AXDOvbY MrYP7MRkoA2Uifk1n1Mm++xO1AFGxxVs2eZLMEGBlDyYcaQztfXjnbWgm9yXoX8lNkzOuNytFiJd0ycI eYY5bZQvHPEymHJ2Idb+/j3nXYJw66Ftl5TxAO0S+q P/2Qk8mC/KDcoA6n8Bsl/qgBIZmHfKV14kUlW5w0+8ZBE9Q9zmGOA8u1vjowVAIK4hxzGvzlEzu0Ys2+ ZoA3BXsF9vJmJeFIB3TCvUDZXGwCzldPn1UqnlUb7XACBKK2U6FLIQheo+s2BCwTS4ZX607WSj71Wpig dTXHNTTf9QEBiOZH+dFyfZBLBjld2e7m4UHi3vi9AX i3LHqpZa7eWgRISSAuAlReOutez/UTkkw4RdhDlOdo8Fe6YAu+u9GhPLLQUIHGQsyv5mhkr1tjg+Wf8e JWtKm5Q4AWMPhiPjGMRKRsQ7NgL2t4a5RIA8UnJw0jzoTa2sM0CWedSO97k9UfPLODnvlB+0lyN/By5V YILTHcJ1KaMfolZJW4/vHA0Tj8tKKDkXH+k/ uERUxoi/cHLtXF68zeQaGHibJ/vMJmcwoEP74lxSVFKoy9xny68Dhfe0ld3gzuCg6ln9/IqFM5acNih2 nY1am3kxKjyJUIBbpWHDdZgjMqqtMDS1Ia0hF7VhoNZu9huoXQJvzi+Gnt6FNs+dkbN/G1wO35EOVYbn OBSX898TAvMrZN2O9OV5brmKyuSwqpz/crxaxCbrLQ kmTaWBna4+zOYZnEHXkHjScD+Ok/g6TpJ4+uKkdQ3DwQT0Xic81wyDpHyf7ZtanqKJ7UPyOnwRhMIZhr OSvAYPrmBjUpB+FTQ1FOLfMMSOlVZq96RJDksIbt1CyGYjA9JCS8nwsjjyzPUCcOIidU6Bw6g6undcBD 2vp3S9PG8rOpgLxfOS46l1WnzR64l3m/j3Yt14v2c0 [file] ICAgICAgICAgICAgICAgICAgICAgICAgICAgICAgICAgICAgICAgICAgICAgICAgICAgICAgICAgICAg FKTkUOEdSXImPWMtQMAgBKUjKMJxZCZnLXDiFK5JIFNnNDXrQWCiXYWeJDXtQJMfTPDpAIPnBUXdJUSp ICAgICAgICAgICAgICAgICAgICAgICAgICAgICAgIC XaSHBpRSVsFUEhGRPqLOYiIPCbOFCzWRCeAASqXTJjZCEcYYFnQA0FGDBwIINvNNGiCTDnMNYvPCOmIZ AgICAgICAgICAgICAgICAgICAgICAgICAgICAgICAgICAgICAgICAgICAgICAgICAgICAgICAgICAgIC HuQVJgCYZpCPDmFGZsHQGxLDPmBU6QSJVvBBQlBGJr ICAgICAgICAgICAgICAgICAgICAgICAgICAgICAgICAgICAgICAgICAgICAgICAgICAgICAgICAgICAg IDPsYAEoUBOrUKErHXQkVRWfSWNxXSBjHWAqFGJuLC8QNXZeNVExOAHuVVHdBKSgKWOcYNJvIOBbJAVa ICAgICAgICAgICAgICAgICAgICAgICAgICAgICAgIC AoMBMjELApWTEiWAPeMMIhGKJoUEXrJJQbIKUoTITpTPIgLJAgRYEySC4MURHiNBUuIHZnDMWoWFReCR AgICAgICAgICAgICAgICAgICAgICAgICAgICAgICAgICAgICAgICAgICAgICAgICAgICAgICAgICAgIC CeLYEnNMXzEVOsFLWuKEGlRBTtWUKtXG6PVWTrOKGd ICAgICAgICAgICAgICAgICAgICAgICAgICAgICAgICAgICAgICAgICAgICAgICAgICAgICAgICAgICAg LEYsNVNpGQKjHCStSVGsIWCxXLZdFBRxCNLfNEBsWQHtFK6EXDEaWQZyBSQaRIQyKOThQAJsCALkDEAy ICAgICAgICAgICAgICAgICAgICAgICAgICAgICAgIC EhFOBoKSZoJGEcVRMtFKHnKXWmBQAzBCJrSXSeTLSuSMNsJOXtBFAyUEXlVR2CXHQzYDXuLXDlMKAtTQ AgICAgICAgICAgICAgICAgICAgICAgICAgICAgICAgICAgICAgICAgICAgICAgICAgICAgICAgICAgIC BbMWJvNMDdJRAxPTRlIQKrRDVgESBqGUDwGE1KRYTo ICAgICAgICAgICAgICAgICAgICAgICAgICAgICAgICAgICAgICAgICAgICAgICAgICAgICAgICAgICAg LXUoMXBiBYWhUDRuRUGpCJSqGSQlPNHdEIZuCHPsNTVrMGGhFF0WZS44yYYpn9O3NTKjTY2oaqv/Pg0K NYnmfaIqpBXxBM9KYlElTW7fja8SVuBxLL5gth3MLN cGFjFvZ5U4sDApWCCiLLFNBqZhS09jYDlxCl21UAuzYIKwGbPzOPw8Bx4UUaBwV9lmKPNxJvN3ZCHfXu P7GCPgRuJ1WLPrFvBlWCpsTH9Rk1StjBSzAUr+Gv2GFY1sx9ZcEZhbHoVeEX1nal8BWGkXWtYxK2Hbug C2NGE1HEWbRj7QBPCjRCWbdQFiOVLeGZFXLdVgJ6Ja mS48EFTSFa6+JEqqwsJxJifRHjY4GCTig3ScWSp5BG9KJFNkUXf7sNIhHSLwI7Syt7AgWp85LBWuRbkj FlScAXCJcMW9DHjzFRNcZCNxPc8sTa4fDGFzNSUtUkSpRERYIV6PINQmJSQwuKFkOIXkOHTUUK9GLIte ZJN6XVBulkDkrLBdAVtqJH4QTEEfxnUwOySxKITYXA o+Ds6RCI2ub8LjCTdfKDChVC8rqb4GWXvBNkCnK2N9vFAaJ5E5YIymJj2DFYSvTMCyEgIlDGSGGVyeNH 4UZE0jshT8FC9SyDMvCHXxCUUcpCWzWFj8I83ayNCnOWmkXY7FMPT+Romie+Tk2EGQEyRJDuOYIiTxScTO YFToDvZ0MtQ4JZi2YuE2ZcRW09iQvztlFtDNovZU8T GX2mHMIoRAAGIL6XeVKwgV8rdfWxInUlMHNZXbJtY35icIRiTMZuYAHlROEnSw4DESWtN7BwfwZfwZhf juUfMQCgXMZGFV7ZRWoqvmOhvKXxqFnyCN31rIupZF7KUo7ZEtFzXR8nde6GiHGnEo2ROEBnUr8MBTDr DVNkXBCoQFC8DQMjAuCnDVvdKTJhUEZpVJR2QUCaKU GpOX8MXmPjWSGjOxNcJpchWCIsFJCtbk3GOWZjZZPeCLh7EnMdVKIfWPCtWBnsRLIdHAYgDRG5VGGvXI PkCC0ELiSbNXWyMNE7NHxhYZTiLOSxgl3ZOCXkAGQfBnp4GzKlQNOcWKHxIFseCIKjUBO4HdK3GHMpYY SpEK0ZTvFmHLTnWIC4SsFgNOUvERFxho6GEPQqVORh MTM5TxOcRBBmCWCdGYwdMLFqHQL5PvygOTOfHYRvIZ4DSqOsUXOjGNvoDAOtSMQpZICuof7ROTTiMKVu MXU6ZMNyLIBxAQFkGXmhKLJbACY7ZzDiDXQaIWVtEZ0MUhOhKGQoDEA2WXKsIUViNIHhva2ZNIVqPIQu WOm6RpBxHSGeIXPuVAowPXLhEPBbRAvuBUExVIUuHQ 9SPuFwCQYdYcTkZrOeMHBzJZGpxk6GDMRhKGNfRfP1LMYlTXIpIJOjGFjbPUUxLUThKQAbDIIeBFGhFO 3NPiKaEMSqRqQdWBAsAGFvXWYxal4JXOToHIRrTyZ4DrRnOCPpWQQpEAqcAYSfUZJnEuQ1ACIxLWZxGT 7OFtYsHNWePaNsRNcbEDShETXhjz6HVWYeGBHfXOD1 ENFtRBRyUWYfFDujXKZyWNZ6OpLtFDWtNYJiAM0UBfXpZTuhHOMMXzy4APrqN4a5OVTwAi3IR9Dod2Wd ZzYcIGEIUUcsVV7pytImKJNaQg0VB0iCVigiZTDcBdPpGKR1BgKjDVD0UaTtWpUaCkYdLMIeARwbGH4f JPHzKYSuXqN5BAd3RUP1VUF1AFTeNTElQdKnLzD5Ie U5XpXbPR0UMz3LXrQ8YYP3gXNtSz9WJzI9BMyNFdNmBG9CJOz= ID Date Data Source [id number] 10/06/2020 09:16:56 AM EDT [facility] Name Value Range Interpretation Code Description Data Negin rce(s) Supporting Document(s) ED Provider Note [facility] UAIQOg4wYpBUEhNx35/XJBkgUAEzz2CfWTduJSi9XHueJBTcB1XlTKE7zS3bXJT0AThJDjXrPoMlDdB9 lbm [file] AH0MMAr= ID Date Data Source [id number] 10/04/2020 09:50:47 AM EDT [facility] Name Value Range Interpretation Code Description Data Negin rce(s) Supporting Document(s) Progress Note [facility] PMKXNu9jQxCTJnSf12/WDKebAMWbn1NuXLozXCb5XGdqZMZaQ2JzNQN4eJ7eDWG5SGdSXbMlXiQhFzTe lbm [file] IdKvN2SrBHo8EgQyBsUvSDPhQn7yUZSUWb4+MLaodJGxnMoiVQEPYhS4Esp1FHceCJQLSp1R ID Date Data Source [id number] 10/02/2020 03:09:13 PM EDT [facility] Name Value Range Interpretation Code Description Data Negin rce(s) Supporting Document(s) Consultation [facility] MJOHCl9nRnCKPjOv46/EUKutPCEdo9JlWNaiHRx8YCboDVVgA3PsKMP9lI7eFHC0OKrFZxYnAjVxVkAa lbm [file] VpJaWT9kMFSGYf4+PUupwEYrrRsxBAACArOhRmIdRDrwLTANAg5F ID Date Data Source [id number] 10/01/2020 08:00:21 PM EDT [facility] Name Value Range Interpretation Code Description Data Negin rce(s) Supporting Document(s) Progress Note [facility] YUWBOb8sFaUGViSw56/RDPsbVBBtq0VvQSkqKBv9DNsnLLScH1IyDCV7zZ7tWQH5ZZaIVfKyJzPsMhCh lbm [file] I0MiHnJPZmK4WpEq1jAVRETj6+IGpnjHEzmAuvDQCMJmV9UkXAVnGoGL1EOWs= ID Date Data Source [id number] 09/22/2020 11:27:18 AM EDT [facility] Name Value Range Interpretation Code Description Data Negin rce(s) Supporting Document(s) Consultation [facility] TBOJXy6fNaVYDfHq11/QIFntQAXgw9TzVLouECd8ESvmFTDwR1VcJKV4cM0bAJV0VGuQQgPkEwXuTtGe lbm [file] AgICAgICAgICAgICAgICAgICAgICAgICAgICAgICAg ONXiKJVrSTMoRJDqLIVzXYRcMYPeCHEaRSXrWYRpVOWzDRKxPFUqEFLsNQPqGX2FEXUkMBTgTCDxTNYe ICAgICAgICAgICAgICAgICAgICAgICAgICAgICAgICAgICAgICAgICAgICAgICAgICAgICAgICAgICAg CQNjINOgQXNmYGJiYPFyKLVaPJNjBVLqQLEdUG5KND AgICAgICAgICAgICAgICAgICAgICAgICAgICAgICAgICAgICAgICAgICAgICAgICAgICAgICAgICAgIC PfLARtNSElOFYjBWUgMQNzHOVvGHUsGDGoLOXtZDUtGQYaFZRoCJ7SCTQdXVYoMRDyNPBhTQOpAEMjVI AgICAgICAgICAgICAgICAgICAgICAgICAgICAgICAg IKRlZWHpOEBkZRPpGUGsZMWyAJWfYSImKBVtLLOrBQSfRARfNQGwOQVlRAVkUCLlKF3CGIFsZPDbKQIp ICAgICAgICAgICAgICAgICAgICAgICAgICAgICAgICAgICAgICAgICAgICAgICAgICAgICAgICAgICAg ICAgICAgICAgICAgICAgICAgICAgICAgICAgICAgIA 0KICAgICAgICAgICAgICAgICAgICAgICAgICAgICAgICAgICAgICAgICAgICAgICAgICAgICAgICAgIC UwWJWvVRYuZJRdZADzOABfUILmCNEbGRYmTXDgAQCpZFVdZUDyHFVfHP7OKHNxUVZbOZMlDCXiYTIwLV AgICAgICAgICAgICAgICAgICAgICAgICAgICAgICAg AXPnSNVaBDDnDJRgKZBiVMJdDQLiTBKlNUYfPXGmBGXzKJFsHFEpQPUpHDKpLKAyOEIfFS9QNYSrWPIl ICAgICAgICAgICAgICAgICAgICAgICAgICAgICAgICAgICAgICAgICAgICAgICAgICAgICAgICAgICAg ICAgICAgICAgICAgICAgICAgICAgICAgICAgICAgIC PhCO6NRXPvBQKcKSMaRGZbAPZwFPDmRJUmJUVdMTYxEENcOIFkIVFwGPUkESMfEKNmCUNkZDGdOZPrSG PqWQCyFKOeJTUmSZOpVZOmZPQhWOIxMQKyNCGrZCKqJXWcNUHkAUCcUIEgRA5XXTMmEXKlXHSnUTYgNY AgICAgICAgICAgICAgICAgICAgICAgICAgICAgICAg ZXSrPVEwNHSgETAhXIZhYIMaLFFoLIVpLTNbVFRdFONhOIMiAJUsZVHoCCFhHSLwXOYrIXIkEV1NZJ54 qXInb1E0MPEjUP8ytsa/Gu4GXHdaicSflQZfMI3XOhGyBN1xxy7CCoPeYI4wab3GLGbGKeIlW1K6aTJe ZWWmWZNSWbCuC10uNWmzZd70JRepYUIpHtHuJNh1Lw 8FSzDhS8uvTTGxFgS8UYXvOdD4TLUnThG5ZYTnPjZzYHYwNVCoNOAmDCMHZFZ0GAHtRiKzMLddJU2Ct2 HweTF0CKo+Af4VDZ0yr4UjKQxiPcAqXL4upz5AFKxTWbNcG5NakuA8HDXvEYLiUx5APMBaGVSiuMIyQl LoTVOZIzAhT5EnyO15GIFDCf4+DQplbmRvYmoNCjMz JGYka1SuKNh1JU7TIBIaXCd4bJFyV26ks7XaqOBgIwzkYaRdOVEtKWZ4VQrbfrExXTR1DFJOGVEidLH1 DrOrDvOrChPuXVd9RGNkCP4wRUjaXI4EDIC2HPyvMPRfPVMjX3wHQgJbMIStWHKrwGseGD5DZtStK0Zb cmVudCAzMiAwIFINCj4+LIkqlsDvYbfJOzA4MCCbx0 DkUNk9CW4THJNgSXoyVZ8OHHVrbS2aXDenNC6FOgToKOVaQRINKfOpM91xhWKdCHf2V6JuWfTzBSPuFz lsZXMgPDwvTmFtZXMgWyBdDQogID4+ID4+OPmeLQ9DXNyvroNwKJAiMs8NQJHrYZXqQA3uLMKcWSNrQ2 N2uKjpQUFXQfFcK0pgbpzaVL3gJJVcE526yQqyduCl BBKkSXGoZw4LFBUpBOY2CTKzuJRqGzPyQNJKRGrbIM4NgVCxUWR7pX7wQBawVTNtZTQqO4qYEpMddHpt PZ23qVfgcmAugJHqMEq+Bs6TBA0cx8PxFFs3nrHyBHtyPJK9CLxoVMQcMUTqGNTeHFS2XJC4QYMOKeAr ZJHvJFXhHOryOFBxUHBkne1ISVEaUGOhLQYuXOIaXN PtFRXqQLnwQTJkHCD2JHJkSPBpILKlCC6JAgQlZDCfJSOgCFvwHORbVMZshv8AQHGhTVTyMwImHQXkWT QfIMYaHAeaYAZcGZBiPmT4MTFsQKWcBN7HDfVnEATfDPtfSWalMLHyVUCnbk0NIDOsDGGzIdMvNkXsXS BxZBFoDZqqURCoTUJwMBY7GYHgQQDmLK8UAgGwVGVv DLHiXkibZBDrOTYypv9YAGKoLFQiKfMbBXQrYOEtKQMgNUkmDJIbWKLjMhS7DDZsZICaBT6WEpNsVNUm DCS7NEToPVIiVAHplh3BMTJeOJThSBa3HpBeEZHlOFYiXAglKDXyEIK5QHK6DMYtRBLaGE8VInSxWIRb GPr8JzJuGBBtUBWmih9JDBXxDFTnFBsfQEOxUTLbOF MqFEdjRWLaAKF3PLE9XGOxWXPoBB3UZaGzBUVgTZmbMNNeRINdDTLeuv5WZBKoRABdQFA4RQAjYNHlMH SnBJekSEEoJXRnOynbLAHpEDGlYC8NQsFmKVExAhV6XNusDGXoHOAsyu1BTYLrYNWiXADiQKUkUMTeWJ QhQPquLXGbPKTyKbS2WIMnYIHnGX7JDkJuJHEpXjX7 GVxlDDIoODRksq8VJFYiSHNeFaN1JGCwHTZuXDJuBJupVWNyQSGxTQSoQUMmIQDaHR0CXwPjURQiYoL6 VNTgHQEhMQAvpj6AETFiPUOtEgn7QVErAZTyQKVsEZdqMYJaLWL2SSb5VNFoLZZnFE4EUcUhQLRuScB8 JIIwPPRjALMhfa2YXTSeRPLrIXh1TPIqZTArEMRaQD kgAHIgWAP8WKD7BPZuNICiRP4IItPyXRHgOwXyLGKoWPGxZFYplu6QdSPljCfwxx7PECeXAg2CmGklJH G4BJewEb2gtDZjSELkETMQOk3NmmMcEKYcLYEGKWueKLLgTPTtBmLeIAImYQGuIRMgHOTgUVZhFPV9RI IhMPH9HtzqXtZ6DUC2GLE5OUI3VjFoBcGkH7V8NlSl CaBlJKH0OnXqVDR+WK8mDOb+Up5Zx5SzzgU5yaHpBWguArC1Uv9VSHNQR1NVQa== ID Date Data Source [id number] 09/21/2020 01:47:34 PM EDT [facility] MR BRAIN WITH CONTRAST [id number] RESULT Interpreted by:Pa De Oliveira MD09/21/2020 7:56 AM MR BRAIN WITH CONTRAST [id number] CLINICAL INFORMATION: brain metsADDITIONAL CLINICAL INFORMATION: None. [...] Name Value Range Interpretation Code Description Data Neign rce(s) Supporting Document(s) ID Date Data Source [id number] 09/21/2020 10:37:12 AM EDT [facility] Name Value Range Interpretation Code Description Data Negin rce(s) Supporting Document(s) Progress Note [facility] XCUGOe7tGyMYLpCl92/DTBfaHUTlp0BsKXmeELm7IZszZZMhI3SnZIF8bQ5gLII7VGoHNdUqPfLhSfWn m [file] FdBLh1Ihv7ROxvVAIETm1Z ID Date Data Source [id number] 09/21/2020 09:57:50 AM EDT [facility] Name Value Range Interpretation Code Description Data Negin rce(s) Supporting Document(s) Operative Note [facility] GNTOJp8yTiCQWaCf83/DCEyxYQPvd6VkNGyyPHl7ZVgwWKWzO8BvACD5mZ4vBMV4MBxNFjOfKtVmHhOq lbm IgTveUCsOjEDUuIbrHNiInYQfxTasxuRFaRJ5UyYQ7VNIcE88xYFHoUOQrH1SnMPS4NbJ+By1IAHDniW SvDJ3GCxyB2L2qa1nBUn0lyC3TQuPzDpMHuzYnp0qyYR1f55snSvazZdOXcseKgiZUgnhiR/EiaSbrz1 ichqs9un/moIVbw7Bb+RK60ZcW/PenaAWeZVli/v/i 1yCSonsr/dFZND6czANlk7/ZQ+QFaYVWULyQ/bbQ425y2zIvyYEAfa8dBknBCpG3YbFpYn746K86pE1g yei260RcVishUBgfgIIGt9n98LNRj6byE+br6yP8oil3NbFGtK4AnSBqkNWqF5e9q+hkzUWsNF5Sa1Wo o45GIZg8tCIg1HCoE6XQTXur6jY1oUroam7f14hmof kg1rih5au1TG0cHcMBvJ64ygW6zATlETlVACfWGygdxbkGy63BnzLzxG15TuefVKSzlOrI4X5SsDbXxZ bLP+CfZqPiwOxIzTnAisFMnepwqBbWhaiVeFR2aKNiuScd4UM3T2ef+qRr4EwMcXpudbLScJpgshoW/Z jMzcCfK8+yBDSN3Uq1o4y0uXzYhZ2aHB8T/H4DXU7b /l+Oa2aV2HsPAeiFEY6y8+pUbxndjXho3QCVSyPU0f/MujYBqk6QG4wHxvIIpHZPX3OydM7gNn4dFb+e H6a3rHoNwzTTs/GqZF/tZtsPDb9GwFcEi7o4BG7mrOIUzmLjA/Fm/MQ7nejsut/cTp9nhN+ffmi/Pz4V p//FvhdxL75pHBd8P9G1Xh2PcVCt15AjRFtjd4fn66 UtV1y9+Rajiv+GYrvwnETyIPIjPy1FBLCe2P3XNHTohJyWTAM1wLOhJk4CopoOLnyPQhyBIuUACLCQDknD0 [file] DQo= ID Date Data Source [id number] 09/21/2020 09:06:40 AM EDT [facility] Name Value Range Interpretation Code Description Data Negin rce(s) Supporting Document(s) Operative Note [facility] OCGBTi1pCdNQFaDo33/QMHfnYTTwj5EaHHosAJh9HWmfZUXpL5HuLPL4aL4vTKX3DEoAVfInZgVmCjYi lbm [file] ID Date Data Source [id number] 09/21/2020 05:41:18 AM EDT [facility] Name Value Range Interpretation Code Description Data Negin rce(s) Supporting Document(s) History and Physical [facility] CLFAXe1yKwHZAsVd16/BZWugVFPia6GaFBgyGQt4BBizJXFtT8CwLCH5cG1kKSY7ZYwTJpMwHuAtAgGz lbm [file] ICAgICAgICAgICAgICAgICAgICAgICAgICAgICAgICAgICAgICAgICAgICAgICAgICAgICAgICAgICAg ICAgICAgICAgICAgICAgICAgICAgICAgICAgICAgDQogICAgICAgICAgICAgICAgICAgICAgICAgICAg ICAgICAgICAgICAgICAgICAgICAgICAgICAgICAgIC AgICAgICAgICAgICAgICAgICAgICAgICAgICAgICAgICAgICAgICAgDQogICAgICAgICAgICAgICAgIC AgICAgICAgICAgICAgICAgICAgICAgICAgICAgICAgICAgICAgICAgICAgICAgICAgICAgICAgICAgIC AgICAgICAgICAgICAgICAgICAgICAgDQogICAgICAg ICAgICAgICAgICAgICAgICAgICAgICAgICAgICAgICAgICAgICAgICAgICAgICAgICAgICAgICAgICAg ICAgICAgICAgICAgICAgICAgICAgICAgICAgICAgICAgDQogICAgICAgICAgICAgICAgICAgICAgICAg ICAgICAgICAgICAgICAgICAgICAgICAgICAgICAgIC AgICAgICAgICAgICAgICAgICAgICAgICAgICAgICAgICAgICAgICAgICAgDQogICAgICAgICAgICAgIC AgICAgICAgICAgICAgICAgICAgICAgICAgICAgICAgICAgICAgICAgICAgICAgICAgICAgICAgICAgIC AgICAgICAgICAgICAgICAgICAgICAgICAgDQogICAg ICAgICAgICAgICAgICAgICAgICAgICAgICAgICAgICAgICAgICAgICAgICAgICAgICAgICAgICAgICAg ICAgICAgICAgICAgICAgICAgICAgICAgICAgICAgICAgICAgDQogICAgICAgICAgICAgICAgICAgICAg ICAgICAgICAgICAgICAgICAgICAgICAgICAgICAgIC AgICAgICAgICAgICAgICAgICAgICAgICAgICAgICAgICAgICAgICAgICAgICAgDQogICAgICAgICAgIC AgICAgICAgICAgICAgICAgICAgICAgICAgICAgICAgICAgICAgICAgICAgICAgICAgICAgICAgICAgIC AgICAgICAgICAgICAgICAgICAgICAgICAgICAgDQog ICAgICAgICAgICAgICAgICAgICAgICAgICAgICAgICAgICAgICAgICAgICAgICAgICAgICAgICAgICAg VNPbPZLeTQZgQXWlVUZwWOOoNDZyYEXcAWGvEQPvDDFfPYXnYVZqRCh3S5ihYLDkVZBaQF3zJFg7Go0+ ZPcRJyDrCNG3rbJtuV6RWT1ju7MlVGmnRDHrj3VqLH m8KY5AZGRuZHhxXP9CTBlcuy9JAJRhWWCzhCXLk9edTtIpFSK0MEEzNujqGZ0PMSYfA2dsvhJcHENgZD UAHQrtQAGEQR3DOxEyR3AysP47QDTJGl5+DWfeofKyYgvMYeE0QWOxh6DlBNg6GR5HRHEsEltcg1VuKP tsHWVRXJhnSK6PKWT7QDR4EPHjZl6TWTDfH634ceAt MW1CDz0RShVbDS2stk5XNLtmBDBbFleCRfj9HRfsZI1QdXMkLZhJSnZoKxvrN5LdrPDeWTLfDPCyxAne UOCaWWEeCv1nDA0fOIOsTDR2UpJkWUZQSA2JJPLfWYAmiZIoEAGsNDUKIY4VMMyzGQA6CATthwTqaROs VZuaPF6CPYYxynXiOOOsQHSQCSm+Fw4SRD5py0WrAM jqBTGvYL8kke2HAQbQMiLrG8M1hUXiL7V9QBlhJk0GVVSiZCShXMQzIESGIRlpWP7QDC2rbrG8UG1YdF YeIVQnTKKtxJQtDVu9E43vqBZjCOliNA3CYLJ+Romie+Dc2LYFJcSWHyISNaLwWzWCOGXbXiL8PfU5TWq1 TdU8ZmVG74sXyyhmCuMIyzOU5BEC2jMOQlKHDUHK6A aHHioY4hloSqWkCpXFPLEhDtV63wuAJrCJCtCAH7KLQqVd3EHDQcC9EhgpJhiOmyhbFcOTNoJTKTLW5Z EDuoprVtkCVdwOzyYM70iFdnFE7BJd1BQeRrMR6bov3FgACkNz7ELQBoIL4WVRNcTYZhBDDiHZU0FDOc ZfAnYFzgLXHzVEBkJKQ8WLToMUUuBY4MCwDxXDEhJQ yiRUniWCXpWHQqmj5OJWRnMYIzBNdtZZRnWOGrHSZlEDkzMKVvKWEbQMF5VVPzVLOtAS8MCgUmBDIySC E1SwJcFVWfZFYyes2OSJGzJATkHor0XMHkYMEwXLPkOLfiTFAbOIP6PuO9RTEwCWAnUJ3WNzKiHUEfWN D4ZRviYRSlFVNxaf2TGVNuRQZfJtK7GDQzEJLiUXBw MLpvROTzUZS4FAG8WGLjPKFaFX5WVaWuPZLiZNW0BEBeFOHbMQIacm6BLKAyKNPhVbamUVKuSSZeWBIe GCoxXGQbCQG3OBK1IAMkZXAkQR9VRzRjPFQrWQrlZISuBSMkRIGnbb2JQNLjTCSmBYN5ZMZwWELkGBVn MFdeBJBbATW5KWTrDUHvKUGyVH1SZaIqWRPzXHQdIU LhQMEnXZIwnp8KHPOkQYWxJMS0NABlRPVaZIVeCVs2ycStnWOnKUk3PB7TG6ZiahRgFLrUBu7Fq478SE Y6DWZtFp6BL0nkQr5uBKAmRUQLAx4OICl2XMX9Kbh0F3NqQZJ7GiEvS3HaC3PiWDmqBoQ9ZVUoZxG+ID h4RBmuRcvxM4HiLjqpOBH9J8W6JFSsCIUnRcryEPU9 QS8oPTBBNd8+JQbdvHKspKwrWWDFPpTuFoh0NUmgBGIBDv7U ID Date Data Source [id number] 09/20/2020 10:16:00 AM EDT [facility] ([facility]) Name Value Range Interpretation Code Description Data Negin rce(s) Supporting Document(s) Carcinoembryonic Ag [Mass/volume] in Serum or Plasma 8.2 ng/mL [facility] THE CEA ASSAY IS PERFORMED ON THE [employer] BY CHEMILUMINESCENCE AND SHOULD NOT BE COMPARED INTERCHANGEABLY WITH OTHER METHODS. IT SHOULD NOT BE USED ALONE A SCREENING TEST OR DIAGNOSIS FOR THE PRESENCE OR ABSENCE OF MALIGNANT DISEASE. PREDICTIONS OF DISEASE RECURRENCE SHOULD NOT BE BASED SOLELY ON VALUES OBTAINED FROM SERIAL PATIENT SERUM VALUES. ID Date Data Source [id number] 09/20/2020 10:16:00 AM EDT [facility] ([facility]) Name Value Range Interpretation Code Description Data Negin rce(s) Supporting Document(s) Glucose, Fasting 110 mg/dL 70-100 [facility] ([facility]) Blood Urea Nitrogen 9 mg/dL 7-18 [facility] ([facility]) Creatinine For GFR 0.70 mg/dL 0.70-1.30 [facility] ([facility]) Sodium Level 131 meq/L 136-145 [facility] ([facility]) Glomerular Filtration Rate Laboratory test result [facility] ([facility]) <content>Units are mL/min/1.73 m2</content>
<content></content>
<content>Chronic Kidney Disease Staging per NKF:</content>
<content></content>
<content>Stage I & II GFR >=60 Normal to Mildly Decreased</content>
<content>Stage III GFR 30- 59 Moderately Decreased</content>
<content>Stage IV GFR 15-29 Severely Decreased</content>
<content>Stage V GFR <15 Very Little GFR Left</content>
<content>ESRD GFR <15 on FABRICATION MACHINE OPERATOR</content>
<content></content> Potassium Serum 4.1 meq/L 3.5-5.1 [facility] ([facility]) Chloride Level 97 meq/L 98-107 [facility] ([facility]) Carbon Dioxide Level 28 meq/L 21-32 [facility] ([facility]) Calcium Level 8.9 mg/dL 8.8-10.2 [facility] ([facility]) Anion Gap 6 meq/L 8-16 [facility] ([facility] Alt/SGPT 21 U/L 12-78 [facility] ([facility] Ast/Sgot 15 U/L 7-37 [facility] ([facility] Alkaline Phosphatase 126 U/L 45-117 [facility] ([facility]) Bilirubin,Total 0.7 mg/dL 0.2-1.0 [facility] ([facility]) Albumin 3.8 GM/DL 3.2-5.2 [facility] ([facility] Total Protein 7.2 GM/DL 6.4-8.2 [facility] ([facility]) Albumin/Globulin Ratio 1.1 [facility] ([facility]) ID Date Data Source [id number] 09/20/2020 10:16:00 AM EDT [facility] ([facility]) Name Value Range Interpretation Code Description Data Negin rce(s) Supporting Document(s) Prothrombin Time 12.2 s 12.5-14.3 [facility] Inr 0.89 [facility] ([facility]) THERAPUTIC HUMAN INR VALUES INDICATIONS NORMAL RANGES PROPHYLAXIS/TREATMENT OF: VENOUS THROMBOSIS 2.0-3.0 PULMONARY EMBOLISM 2.0-3.0 PREVENTION OF SYSTEMIC EMBOLISM FROM: TISSUE HEART VALVES 2.0-3.0 ACUTE MYOCARDIAL INFARCTION 2.0-3.0 VALVULAR HEART DISEASE 2.0-3.0 ATRIAL FIBRILLATION 2.0-3.0 MECHANICAL VALVES(HIGH RISK) 2.5-3.5 RECURRENT MYOCARDIAL INFARCTION 2.5-3.5 Partial Thromboplastin Time 26.8 s 24.2-38.5 [facility] ([facility]) ID Date Data Source [id number] 09/20/2020 10:16:00 AM EDT [facility] ([facility]) Name Value Range Interpretation Code Description Data Negin rce(s) Supporting Document(s) Red Blood Count 5.04 10 4.30-6.10 [facility] ([facility]) Hemoglobin 15.8 g/dL 13.5-17.5 [facility] White Blood Count 11.0 10 4.0-10.0 [facility] ([facility]) Hematocrit 46.4 % 42.0-52.0 [facility]) Mean Corpuscular Volume 92.1 fl 80.0-96.0 [facility] ([facility]) Mean Corpuscular Hemoglobin 31.3 pg 27.0-33.0 [place] [facility] ([facility]) Red Cell Distribution Width 12.1 % 11.5-14.5 [place] [facility] ([facility]) Mean Corpuscular HGB Conc 34.1 g/dL 32.0-36.5 [facility] ([facility]) Neutrophils % 79.2 % 36.0-66.0 [facility] ([facility]) Platelet Count, Automated 222 10 150-450 [facility] ([facility]) [place] % 9.7 % 2.0-8.0 [facility]) Eos % 0.8 % 0.0-3.0 [facility]) Lymph % 9.2 % 24.0-44.0 [facility]) Baso % 0.3 % 0.0-1.0 [facility]) Immature Granulocyte % 0.8 % 0-3.0 [facility] ([facility]) Nucleated Red Blood Cell % 0.0 % 0-0 [facility] ([facility]) Neutrophils # 8.7 10 1.5-8.5 [facility] ([facility]) Eos # 0.1 10 0.0-0.5 [facility]) [place] # 1.1 10 0.0-0.8 [facility]) Lymph # 1.0 10 1.5-5.0 [facility]) Baso # 0.0 10 0.0-0.2 [facility]) ID Date Data Source [id number] 09/16/2020 12:45:17 PM EDT [facility] Name Value Range Interpretation Code Description Data Negin rce(s) Supporting Document(s) Discharge Summary [facility] XXXYZn9oQeIFWtDz14/AGJhpHWExz4SnZYluVLr9KTxmMHAnU2BvYQF7uU2bVBC8GSyZOkIhGoHeOaU1 lbm BmLmdVZzBuDLZpTcrZPyYyRLksNinakAKnVZ0IcKZ9MKSgW45gKSIlSKMkP5OzBSD9VFV+Ld3UFDUduB CmCR9RAoeE2E5epuhCKk4cYS+njFjYMfYZ9mpGIvj4kcpTW12sJCOXrZMUMMTDpuzXhDX6umsV8A4uWk 9oKlgX0y64PvyiFxG96zkpJlLA/u+/YcK4okOH9N/6 6gWmuJyLv/2A7TMwwtsZm9XOzV7o6OvpmsMo8WQu0oD8Tjs/fnoNs0yJRPpbqqiygKkYjnvNJst/LC5+ T1XslxzZCNpMARDgfqLvzjzzM6dTvvel+poPzaacgE/ENSGn48AqrDaDB2ji324w4W664bFgSEiyQBFU 5mvgWsbKyeHKSoqYODwJ9CAkP++OTGetLQMCW2U74g eWtroUGw4i1TBRDgII2ZlOyleCallN5wcSL61Vluw82b6OlCDB7ehPlyvKOhcNPRH+FjFwcmhZROT59M y5iZMJ0BarMPMauzKuWhHD+Ea1jPm6pzbvuhbKPqjrDQorm7zudfAavfBgbjn4m2thNsTaCIYR+1ilZu BpdnGZo5cRZz2veG2Kx2yN7q7sVArSb+Ungq/E/diego [file] ICAgICAgICAgICAgICAgICAgICAgICAgICAgICAgIC AgICAgICAgICAgICANCiAgICAgICAgICAgICAgICAgICAgICAgICAgICAgICAgICAgICAgICAgICAgIC AgICAgICAgICAgICAgICAgICAgICAgICAgICAgICAgICAgICAgICAgICAgICAgICAgICAgICANCiAgIC AgICAgICAgICAgICAgICAgICAgICAgICAgICAgICAg ICAgICAgICAgICAgICAgICAgICAgICAgICAgICAgICAgICAgICAgICAgICAgICAgICAgICAgICAgICAg ICAgICANCiAgICAgICAgICAgICAgICAgICAgICAgICAgICAgICAgICAgICAgICAgICAgICAgICAgICAg ICAgICAgICAgICAgICAgICAgICAgICAgICAgICAgIC AgICAgICAgICAgICAgICANCiAgICAgICAgICAgICAgICAgICAgICAgICAgICAgICAgICAgICAgICAgIC AgICAgICAgICAgICAgICAgICAgICAgICAgICAgICAgICAgICAgICAgICAgICAgICAgICAgICAgICANCi AgICAgICAgICAgICAgICAgICAgICAgICAgICAgICAg ICAgICAgICAgICAgICAgICAgICAgICAgICAgICAgICAgICAgICAgICAgICAgICAgICAgICAgICAgICAg ICAgICAgICANCiAgICAgICAgICAgICAgICAgICAgICAgICAgICAgICAgICAgICAgICAgICAgICAgICAg ICAgICAgICAgICAgICAgICAgICAgICAgICAgICAgIC AgICAgICAgICAgICAgICAgICANCiAgICAgICAgICAgICAgICAgICAgICAgICAgICAgICAgICAgICAgIC AgICAgICAgICAgICAgICAgICAgICAgICAgICAgICAgICAgICAgICAgICAgICAgICAgICAgICAgICAgIC ANCiAgICAgICAgICAgICAgICAgICAgICAgICAgICAg ICAgICAgICAgICAgICAgICAgICAgICAgICAgICAgICAgICAgICAgICAgICAgICAgICAgICAgICAgICAg ICAgICAgICAgICANCiAgICAgICAgICAgICAgICAgICAgICAgICAgICAgICAgICAgICAgICAgICAgICAg ICAgICAgICAgICAgICAgICAgICAgICAgICAgICAgIC AgICAgICAgICAgICAgICAgICAgICANCjw/xXQaZ8tqqXGuzfX1R6xcHh6RVx6LPN1dk6EgAMJnNWgvfb LrEyoWMsVvHFKsYbdEOvi0SSadDN5XpFFpQ9TgW2CdXWnmSP4CUVTfAAKinYIdERNfRNXhHcW0DRGmKB jrFC7GxMSsABmvBOQiMQWtHrRiFZVqWBUzFPKcHNNv GNFXAPQhQQUtMcRmWVXyFFRbFE5QSDRvF355xkQwNy8DDa6BVpMjVA7sgf8SOrOpJJIkVnuEUxg5MObo OF2QdSXihAIjAsWeFRIHMqRvA0oye8SzWmFuHHGTTRuxUC8Dd7TylZZjRMa+Km7AGX1es4CgYSwqOuNq RR4kuv6HFNfYYhClJ9WkrInsGUHfx2RrPEVpULSAlR 5jNMO9WXF1RRauwHYwXE0pEHmhM1ZbuV0fBsBSgd0iPV7FFHR2KSCiUhOaUrWrIVQqPsamUPFDSNwJVj JoA9Dfv4HiOsK1DFQaBwCxFAohKMVfSmU3AG96iWbwZF3AOWZbWZEfIW86CKN5NFRoIt5KIt2GFmSaDW 2pji0QMijlSAYgWenDHbo6BVfwQO0ErGBkE7QigLSa e0zTSsHuI1ONSMMlGUNgEv9JISCaBdKeLANwDWapAY6xTCCpXEQWcIolynD0AO8OQC4kcpKzLZ6KFvEl Ed5qTm1AMzSlQ8KsW3RqOYWkVRGHAKulKW1MQTzfXR7uMG1Sl9QIlURdkZ9ljl8BDFGqDBYlOobpiz0S HvhlJ1P2fPuvPNRzEhRiNJWTCBxfRX5TUAGvLDY7ZU IaULPuQUZFViMfP37zIO0YJ5Izf10uKiU0NKEwSaPyIEuwHC72eQeifiOplUBleUoxHD8IAk2+DQplbm VhOrmOJffwPXBACpMaBcqNJmYtMALzJAViATPmXtZ9RbGnCm9OOCPxGKDeRRZqDtElVUGkCSNaZHqzEI PcJWDqLbSzNMEgUSTaBY3JKaDdWSNrEpMrXyMzMXCl ZIOyws8JSSMhFSTpYIH0AwQfUKTeLQBhFBbyVZMaRYGqATb4GRPrFKHwVQ0FDfTjURHiSKQpJEBoWXDo AHFwwe9FUCGpTSBpARy1LeSxSKLoSRStIJkxFQJgWNT0USnwHGDrWLWdLC1VBuGcNGUfRML6DTJlLLQa GMVnrq9VOFVrLFPkGMDhDJWpSTYsESGpTBjoAZOzAQ V0QNnpZVQqUTRnTD6WGrRaQEKcZQy6LYmvOZRpANRtfd9DGJEeQYLlBSg7DJMlMMJfTLUcAApsFWKlGG LzOWZ3AZSaLBJmVY0NSiZjBADdHfR4EdpdGEGgVTXkhm8RKRGdFNRlAhVwWxWxKTWjLRGyMWmtVNZdSP HcHSrrKYYdWXMkAH4WTtUkPFXcSnGbWIOjNFTnNKOb pj2FFAMnCRNsYfJ1ZzBpPKUeCLAlAKihEYOhQSD8MBXsHEWfAJJsZB5ZZeMtBCKgDkJ1WwSfGVYbSJGw jm6GSVEfIICuMOwkVzSfLBAyHMOgDEwtZMUjKXY6ElsgBURgGRXdWS7XDhLuVFNsHeH0XbglKFZbKANh oh2DBVDwRJYnUlM2NrZiSDPrWDUjUBqsIJLsWZE5OX GfXLEtWYAuGM7ZUfHmVRZrVvcnUkUiPRUnFYDwts6TOQItGFRrEvQdNaOiDJUkOWYoDBiyQOFnWKHbPu ooSQWcNFQjEN6KTzQsECPiCtX0RPHnXGMiDSMuom7KTTFbDBDvWzdiRkTyRMKpQCUtNXscBEPvCAAhPH ElALNfQGJqXF8RDtCpSHFfYfMkDObrLHBdUSKfey1O JFSgQZQfKdzsHxZjBSLiKHWgLEfgYLLvYEO9HMbzVRRoVFOkYM1EBvBcQWEkNwWxGsGpEJIyCIJymb7V ESIbXXWuOZZqLXMpEVXqRXVyNNq6oiOgoLVkAXs4VM5HB5UsszYdAtjHNf9Gi582ONF1BJUyTr1MA0or Fg4cXWPwFOVDIh6MIPm4FqWxYSCcAgCsOuP8Q5QiZB H8UNu6UFKkGiRzMiJtMUI+IMgvSSTlWVIsXKK1MGlkF1GfHwRqORBlWxDzLvZqROMpMu1kRNUKHh5+DQ jpbELhcCaxGQDUNyG5IaP9LBksZAZMRb1Z ID Date Data Source [id number] 09/15/2020 09:34:42 AM EDT [facility] Name Value Range Interpretation Code Description Data Negin rce(s) Supporting Document(s) ED Provider Note [facility] CVRBVq4nSnWDWmIt41/WKJfkFSGax6MuBHnjVDo5DPnoIAPxS5LlXKR7yH2uDTS1XQoYDfPiMdGkAqY6 lbm [file] UyNDQ+GG4rBGr+Xf9Wr8DwfgS4ymJlNOz7SDA2Lq0YJJFMD9VKYs== ID Date Data Source [id number] 09/13/2020 12:44:16 PM EDT [facility] IR G-J TUBE INSERTION CHANGE REMOVALFINA [...] insufflated with air via a nasogastric tube. Insurance Office Manager image demonstrated visualization of transverse and splenic [...] sheath and finally placement of an 18 Bulgarian percutaneous gastrostomy tube. The wire and sheath [...] well without immediate complication.IMPRESSION:1. Fluoroscopically guided 18 Bulgarian percutaneous gastrostomy tube placement.2. The G-tube may be used 6 hrs after initial placement.3. Follow-up after 2 weeks for T-fastener removal.This document has been electronically signed by Lowell Landers MD on 09/13/2020 12:42 PM Name Value Range Interpretation Code Description Data Negin rce(s) Supporting Document(s) ID Date Data Source [id number] 09/13/2020 08:18:28 AM [facility] Name Value Range Interpretation Code Description Data [facility] rce(s) Supporting Document(s) History and Physical [facility] LBWNHz9fJqPWZvFm68/ZTMltIVXcz4KxTJeiFEb1IFxxJJEnJ3DkFLG8zR1yVYI0OYeZPlYkJqMyQeSw lbm KqTxiZMjQwRWNcCcjGQsEqVLolVdnooMWfJS0CuQZ2REDcG02gANJoZUUiX5KyGHTwPvX+Ug5WNEHqoT IoWN8VMbzA8OfzStUT8hbP5p0lssEq3iK2PL3Au6wPyCKSiGk2qXkpWxeyt5ma1Kmoejna6L614un6bd ysmxzUA4ZWcRohp3ie466ZleGP/EsTHw7HOGZR8/qr atvRk5l//4QpreDhL5L/BW9WTqe6jHdr4F4Kr5dzwTAZDufM1WonWg2Rqy6Dyg+yK5qArnG3IfkBUTP8 irflAqOeJqeyLFAkpZEM3eFoFaOsheI9ewh7FuVTcB4MNGILDpJeyy94Q6GdRAoRt0Mz3qYScQ1BQUi+ BCEmAY+uJMpHvWNJSmofEI83k+PwxBbeGyzLimPq2K fDfbBioCbtA7dNS9rCuWbaS2uiBwNqeWlloFtDo4ZoaPM8FFUcNydh25bk+1jxe9Ir1rOtjpPLOSxe6u mvdlTUxIiNQo0pA2y5yoRY/aRROE/JSThbTJPg/i4aL+0pltmLyFvXGugzJ5aieSQWYvxE9PflLEQE+s OhfVmjVF5l/tCIaWHlV76Xle5+g7ZniW0snAJJOZJ3 ak/TZPcl3qvkr8rMXQ56ENf0ze35a9zuk1jwJArR6t6Gq4TEovDvtZu6DOw3nnwm228JCUmSAsNWjq3H ICtXkwCmFAFqaYMdqmZovDBZqB7auVZuZgAOnJ5SXFaA25cXc7/W/dDrk/0wNN7a1zRlpT44C8G0ewC8 DHGY4CRjKHH9fPPxX3Pzpde2F8fCVxocp0WRPp83vv 3lNFHzqNcwOkRPPlgLFMadcnV0F3OcJgZ9BZTGKyY82PsuKGYbLArFRCSoRLUlw9FCqLkhw9JfBJgTMk rqTImO83isul1HNJhXQylAyXwlrOJP5YJ5oePxTdDg+eEyfHHhI8378U2M1bkwm7A0PCrvyd/IZe/k/P i83yM/ai3RjfbvTgyutjluowzvjiOLbXSwckUVIw5+ [file] PiB4OpYvECFfBfUkDhSkZuZnGEStVY0eMDDXCe3+LQiweCAeyEreOKGPJwM5EBU2JNxnCLJCBh3S ID Date Data Source [id number] 09/13/2020 08:15:23 AM EDT [facility] Name Value Range Interpretation Code Description Data Negin rce(s) Supporting Document(s) Consultation [facility] VDHRBe1wDsOEMpQv14/IHOhgQMBjc2MeJMfoZJo8HQeeEXTbE2KaJSZ6mC4aQGA6SXxBTpOcTnUfQmIc lbm [file] AgICAgICAgICAgICAgICAgICAgICAgICAgICAgICAgICAgICAgICAgICAgICAgICAgICAgICAgICAgIC AgICANCiAgICAgICAgICAgICAgICAgICAgICAgICAg ICAgICAgICAgICAgICAgICAgICAgICAgICAgICAgICAgICAgICAgICAgICAgICAgICAgICAgICAgICAg ICAgICAgICAgICAgICANCiAgICAgICAgICAgICAgICAgICAgICAgICAgICAgICAgICAgICAgICAgICAg ICAgICAgICAgICAgICAgICAgICAgICAgICAgICAgIC AgICAgICAgICAgICAgICAgICAgICAgICANCiAgICAgICAgICAgICAgICAgICAgICAgICAgICAgICAgIC AgICAgICAgICAgICAgICAgICAgICAgICAgICAgICAgICAgICAgICAgICAgICAgICAgICAgICAgICAgIC AgICAgICANCiAgICAgICAgICAgICAgICAgICAgICAg ICAgICAgICAgICAgICAgICAgICAgICAgICAgICAgICAgICAgICAgICAgICAgICAgICAgICAgICAgICAg ICAgICAgICAgICAgICAgICANCiAgICAgICAgICAgICAgICAgICAgICAgICAgICAgICAgICAgICAgICAg ICAgICAgICAgICAgICAgICAgICAgICAgICAgICAgIC AgICAgICAgICAgICAgICAgICAgICAgICAgICANCiAgICAgICAgICAgICAgICAgICAgICAgICAgICAgIC AgICAgICAgICAgICAgICAgICAgICAgICAgICAgICAgICAgICAgICAgICAgICAgICAgICAgICAgICAgIC AgICAgICAgICANCiAgICAgICAgICAgICAgICAgICAg ICAgICAgICAgICAgICAgICAgICAgICAgICAgICAgICAgICAgICAgICAgICAgICAgICAgICAgICAgICAg ICAgICAgICAgICAgICAgICAgICANCiAgICAgICAgICAgICAgICAgICAgICAgICAgICAgICAgICAgICAg ICAgICAgICAgICAgICAgICAgICAgICAgICAgICAgIC AgICAgICAgICAgICAgICAgICAgICAgICAgICAgICANCiAgICAgICAgICAgICAgICAgICAgICAgICAgIC AgICAgICAgICAgICAgICAgICAgICAgICAgICAgICAgICAgICAgICAgICAgICAgICAgICAgICAgICAgIC AgICAgICAgICAgICANCjw/bZLjW4eutPXuzmV2O9pj Xw8UWe2IIX3tg5TrZASeNXswrvOfOuzTUvNzBNIbVoeCQqh2NAlzUD2ItENlT2EtV9YoYVvzIY0HMIVt HXAfvLRvMOVzTHQlAiR2YZYnTVnuDD8KyLNzCYizTUAnUETmQpCjWYCbHVYwIVKdCXNwAKGMFPOvURIq ItIoKMhjGX6Tx1GanUX2LRs+Yl3DUO8vp5CqVGqzBk VpGG3lzh4QVVrPKlXaV1PawoS5NBE7MQKgYo9FZQLgZYRqxAKbTOJaITORThWvH8KxhX88PQVYKt1+DQ yytoZzCopYXyV3DVXfr4RcFZq7KU9OXSRaBJd0iJFnE27fp8ZqsBHmVexlNAfjgRRvbBLWDD1tjBxuNA AqVKLdZe0kXG9oSHSsQSJkWtI8XWSBDI6OCAFnRHRj nUCdEAPoBHVYQW3XUWbzUBN3UAArzqTrgZSaEKacFX1RFJMsbhWaEamjQNAIZCj+Li4CSA4cv2GuGVjn RFQkMB9krq7CEBxLYbRrP4K4aYSyP4G3ZMejFk6QPYDlHXHyJcFmRYBZLMkuWK5OXF0ftnB1RG1OkUMg YYBbQENxpHAbXYw2Y10awKTjWIckUO4JVOU+Romie+Pg 3HHISjWQSuZQPkCiQaNDCMDvCgL3PmD5MUs5ElW7JnIE68fCspxqJzHUqbTJ6VPZ7wCBBwIYCOLT8JxW DxhE2nzmIkWzVpQBRQRrJmC21tdMDaCLQnZHW5HLRvFe2JWTSkA9FfdpWeuSsyvaYtSSYoKONOXE8RQZ giphBwfBZmpVreQE57gGngTG4JRf1SKsHlQO4hmt9M aNGpCd9SBCRiEJ0WUHEvUXBcESEjRVE7YNEyUjVgQErxYAJvJEMdYDG0IPJtAVSmEU3FFuZmIGEhGzP8 KuPjLHLgKRWdvu2JFTQqYMFwVnD2DGEwOJHnISKrIPnmHIMmQGDmLDC6FGVfOQIeVQ4EWuUzYBZiFGD0 FjcvNJOlQNHwag1LBMQkKUVoMRB1OwGqASCzKPIhYP iaHXKtAPP3FlT7FDJuRELlKN8WBhIjELQfPOh4JjRgRVAmOBFido5YTCOrXABjIDC1OnYgUAPnAWZiZA vrGNLbHVQlFPQkCRDrCLDzPD8AObQcWRAjGHY2NgZfCAQlZNTzgh0PYTXsCPHvEcs9IlTcFWGyIYQhDI oqYIVeCDY5IKGmZDHbMQEiCD3INzHoYSSwKPp2GDnd CQHrDUFruo5VTNOdONVqJABkBFOgPUCaSFDhTVtjSNEtIDXgPYR0QXIrBYJoNT6LOeHdLOLrIfI8GMnp SWKgOFNvnr3ZYOLnJTSbUSy2PrSvFMIkDEDuKJkkAMYuXHUnKII8FXFmVLMfZU0KPiWtXRDtXcZsUGno HSQmBOMxzr3KSDBhZIAjOnabMuUoMMHuJVZdMPwoGI NuTPG3DXBkMLSbKEWlFN4PUlLgPXKnLwWzHBheLWNbWHFmkz2ENQIbWIAbGSW2OGFdTGJoDLYmNJpvUH XcOLP3HjE5BFEaLSVzNF2XEeSsIYXnRhBoMDKuINFnTWVhom4PHDGyKJTxVdBmBANbVLNkTMAzCDwrTP XrPDA1DUcoMXFiSOCuRN4MVoAaPSNmYsK3ElNnPRJp BTEccb1ZbHLkzJdlkm5PUYbLHh5LqLsoYTBrPJdzIl9dsLDxIKTuTSJXTc1EkoLqFXKgPVFXUVgbHHAa NNY1VoD0UaN3VJG1DoJ0LGHeRZXhNhJaAFBnUXZ5XBFvVwR8Fdi2Wkw8Vnx2YDgiNgq0QUQlLtLcNHB0 ICN3MaXnSFJ+CG4uGEj+Ro1Tz9MowpI5jrAxAXdtPoh4Rh5UCXQCQ8QPGz== ID Date Data Source [id number] 09/12/2020 04:28:50 PM EDT [facility] Name Value Range Interpretation Code Description Data Negin rce(s) Supporting Document(s) Consultation [facility] BCAAYt2uZaVJTbNa44/SPQriHVOpq7MnZKpoIDh8VVvjXBGeG0EzBIO9lD3eMNJ0UHiOWwWdMfTnGtZl lbm [file] nBdw+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/wGNd96us3DL1dInhT/N2CfNw5R/Rt4iqpeXarsadxV1+r18feJYZfVmU7Sm7euINHA2UwBm [file] ID Date Data Source [id number] 09/12/2020 09:03:24 AM T [facility] MR BRAIN WITH AND WITHOUT CONTRAST [id number] FINAL RESULTInterpreted by:JENNIFER Oropeza HEAD WITH AND [...] rce(s) Supporting Document(s) ID Date Data Source [id number] 09/12/2020 08:14:25 AM EDT [facility] Name Value Range Interpretation Code Description Data Negin rce(s) Supporting Document(s) Consultation [facility] JWUQWg7dCdRUYuGl23/JMTksOTCdm2ZsDTnpRMo1FOycVLScX6YjUWG9pH9gBOA2MXpCGaJkHyGsJrOl [facility] [file] ICAgICAgICAgICAgICAgICAgICAgICAgICAgICAgICAgICAgICAgICAgICAgICAgICAgICAgICAgICAg ICAgICAgICAgICAgICAgICANCiAgICAgICAgICAgIC AgICAgICAgICAgICAgICAgICAgICAgICAgICAgICAgICAgICAgICAgICAgICAgICAgICAgICAgICAgIC AgICAgICAgICAgICAgICAgICAgICAgICAgICANCiAgICAgICAgICAgICAgICAgICAgICAgICAgICAgIC AgICAgICAgICAgICAgICAgICAgICAgICAgICAgICAg ICAgICAgICAgICAgICAgICAgICAgICAgICAgICAgICAgICAgICANCiAgICAgICAgICAgICAgICAgICAg ICAgICAgICAgICAgICAgICAgICAgICAgICAgICAgICAgICAgICAgICAgICAgICAgICAgICAgICAgICAg ICAgICAgICAgICAgICAgICAgICANCiAgICAgICAgIC AgICAgICAgICAgICAgICAgICAgICAgICAgICAgICAgICAgICAgICAgICAgICAgICAgICAgICAgICAgIC AgICAgICAgICAgICAgICAgICAgICAgICAgICAgICANCiAgICAgICAgICAgICAgICAgICAgICAgICAgIC AgICAgICAgICAgICAgICAgICAgICAgICAgICAgICAg ICAgICAgICAgICAgICAgICAgICAgICAgICAgICAgICAgICAgICAgICANCiAgICAgICAgICAgICAgICAg ICAgICAgICAgICAgICAgICAgICAgICAgICAgICAgICAgICAgICAgICAgICAgICAgICAgICAgICAgICAg ICAgICAgICAgICAgICAgICAgICAgICANCiAgICAgIC AgICAgICAgICAgICAgICAgICAgICAgICAgICAgICAgICAgICAgICAgICAgICAgICAgICAgICAgICAgIC AgICAgICAgICAgICAgICAgICAgICAgICAgICAgICAgICANCiAgICAgICAgICAgICAgICAgICAgICAgIC AgICAgICAgICAgICAgICAgICAgICAgICAgICAgICAg ICAgICAgICAgICAgICAgICAgICAgICAgICAgICAgICAgICAgICAgICAgICANCiAgICAgICAgICAgICAg ICAgICAgICAgICAgICAgICAgICAgICAgICAgICAgICAgICAgICAgICAgICAgICAgICAgICAgICAgICAg ICAgICAgICAgICAgICAgICAgICAgICAgICANCjw/eH PoZ4azkHIhkaZ0Y6mkRz5NPb1ZGX0lt2RbTBYfQXqbkcLkOhrCOaYcKQWmAkkWOrb8KGxhLG4HwKYuJ5 WtE8XeUQwtTZ9FBEVtDHFsgPTvWHMzXOKmCxK0ZUBfJTjcHY3MsPAjHLxmFRZcWZAhArDaZQCqZGGrAG XeHBAnMXSZNBUaJHSaVxSlKVcbBQ1Ai3JaaHQ5MGo+ Gt4UMN4va4QnIJdcDxJcVR9ale3AAJiYTvVsR8IosiG8YEB8KVStYp4OJVAvJHXbiBZjJKQtDPGGOsLg Y3SwoA73MNQUHf7+NCxryvLlZlkUDcY5QGEex1ItHSl8PV4IFDXcWQq7rEPpX11pd0QlyCXoSdicKiYm LjAylDBZCIGbA9WuhCcfFXUrGPFeXw5qMK4zQOPaRU PwSwB2WURZDX0UVSGqCLQsfCYfDMDrLRIMZJ1HBQgsKIG9GBXtxeUasFQkMLoqDV1UZWJpyeGzYuXhRT BSDQo+Sr4LRQ3ek3IaQExyDJBqYJ4dmj3KBSgUUtAnV4L6hOAcM9C3TYgkOz4RVHFhYGBvWoLwDTSADH rqDP3CMN5lkhM1YN4GwEZqQOWwSHRzuFQhSRx5K11u cFXsZTknYW9RHXI+Romie+Kt9PHTBpWPRhYCVqFaNxJMSSSiMnK3ScK7SLc7HlW8DjKP89zGkoujUoHTts VC5ULJ8qHPHfRUOQCI6WgMWikK9xdtWzAkOiJMNXIdXyM46muSCfTUVpCEIvSVVjJm6DAPDiO9XkluKz mAesqsHxOITrWQSOQM3CBDlrphAcwMZbrHqiNW52bK kyZT5BGu9EYjTaEK3qio0WpXMwCj7BBFPfIq5MILFkPVHaPDPbZIL2LVDnHlJrANdfUZYtQJQxDZT8DM PiDXDvRK6PRaIuKRBoPmWnFOEtBNLbRNMful9OWWAkWUEmDig4PfUoLIXkSSXiFJcjFHIdYFItILI2SS DtJMBkGJ5HSqXmNJJnGXIqHFZpPJIfOYRtjv8QRVZh SRKsTXQtOWNeXDGrZIQvKIqmPLHiUFD7Yeb9ENRvQZGvCQ8GLgPvPJGkUOe0FIYmHSCdRONznu9LLBIr WHWkRVf9QIFpFFIeNGOrKTtmNPCbMSZhEJkzNRTaGUMjAK2FVaVgJRKoIUOfGGFdBTUkNTTreu0GQRQe NONaZnY5SKSwGYGcRUJrRPtxVJFpCSU9VBu2JFWiYK XmXG8HZxPeEKTvXCx8YOBwMUZwOUBqrr1DMHQuUAPcYVN2DCWyEUWrPCFwQIfdPYQnIHI6TFWsWAGrNN DrHB1NQaUfVJZiRRq1TNIvGVFnDUOlkh4SLZDiBRQyZUbhUBYlEAGfGUWnISboNTIeASG3VBG8EPAaCM OjGS5AVdDvEDXwMvFjBRQmUIPjRLJguy4RPSVfIICx BXL4XoFpBERvSUMoBRjqBYZfXXPxNbR9PITgESPwWP6NLhFzVBGmSjY6EYRoCKMpNQRpaf8EDBLlNHWb XqWjMyHfNYAyVZYmVZjgQREgRDYiDjKyWPZwPXTrLG9MDlLkPWAgZlM7ECKiZRJkMREoyv1OSSNkGXCy NZM5CYRyUMGwDEHpLAwtHYNdEUA6BRu0JWHxQKKrZS 1SEtFlICSnDgJ5LOAkDNMrKRBjep4EDYOiULOyQSkmXKNzVGRvCEWaNTcwKTYwGTY2YLekJCZtVJRzRS 0IZjLzXJGmHfN2DMLoEDGyNOSlwj6RVRTpVQNlXyi4CsQtIYTzBUMkNJkiSXYdWWO7WUE7GVIrUSHtNI 5LQhBoQLKsXfdcZNTcEJMkCKBinw4LvDRqdVazij5N PVhBOl6NkYhpJQS6WQztHy2iePTjVDVkKVUNWg5NowXdZMUrOOGGTBxiZIScJUN1CjApHHKsBsA6VQI0 KPYhSlPxVCBpCpK5LowuJFOmOyC8ZpGuEsU2OfFdYcIkCKOdFIIjP9B5ZiO8FqUgVoYsAaM+TB5lBWi+ Gz1Qp0VoxeC6xmBdHYghYiAyIh5NTHPEV5KHTv== ID Date Data Source [id number] 09/11/2020 05:05:11 AM EDT [facility] Name Value Range Interpretation Code Description Data Negin [facility](s) Supporting Document(s) Leukocytes [#/volume] in Blood by Automated count 7.3 10*3/uL 4-10 [facility] Erythrocytes [#/volume] in Blood by Automated count 4.81 10*6/uL 4.6- 6.1 [facility] Hemoglobin [Mass/volume] in Blood 15.4 g/dL 13.5-18 [facility] Hematocrit [Volume Fraction] of Blood by Automated count 44.5 % 4 1-53 [facility] Erythrocyte mean corpuscular volume [Entitic volume] by Auto mated count 92.4 fL 80-96 [facility] Erythrocyte mean corpuscular hemoglobin [Entitic mass] by Automated count 32.0 pg 27-33 [facility] Erythrocyte mean corpuscular hemoglobin concentration [Mass/volume] by Automated count 34.7 g/dL 32.0-36.0 [facility] Erythrocyte distribution width [Ratio] by Automated count 13.1 % 11.5-14.5 [facility] Platelets [#/volume] in Blood by Automated count 181 10*3/uL 150-400 [facility] Differential cell count method - Blood [facility] Neutrophils/100 leukocytes in Blood by Automated count 65 % [facility] Lymphocytes/100 leukocytes in Blood by Automated count 20 % [facility] Monocytes/100 leukocytes in Blood by Automated count 12 % [facility] Eosinophils/100 leukocytes in Blood by Automated count 3 % [facility] Basophils/100 leukocytes in Blood by Automated count 0 % [facility] Neutrophils [#/volume] in Blood by Automated count 4.82 10*3/uL 1.8-7 .0 [facility] Lymphocytes [#/volume] in Blood by Automated count 1.46 10*3/uL 1.2-4 .0 [facility] Monocytes [#/volume] in Blood by Automated count 0.85 10*3/uL 0-0.8 H [facility] Eosinophils [#/volume] in Blood by Automated count 0.19 10*3/uL 0-0.5 [facility] Basophils [#/volume] in Blood by Automated count 0.02 10*3/uL 0-0.2 [facility] Nucleated erythrocytes/100 leukocytes [Ratio] in Blood by Automated count 0 /100{WBCs} 0-0 [facility] ID Date Data Source [id number] 09/11/2020 05:21:43 AM EDT [facility] Name Value Range Interpretation Code Description Data Negin rce(s) Supporting Document(s) Albumin [Mass/volume] in Serum or Plasma by Bromocresol green (BCG) dye binding method 3.8 g/dL 3.5-5.2 [facility] Bilirubin.total [Mass/volume] in Serum or Plasma 0.8 mg/dL <1.2 [facility] Calcium [Mass/volume] in Serum or Plasma 8.7 mg/dL 8.8-10.2 L [facility] Chloride [Moles/volume] in Serum or Plasma 99 mmol/L 98-107 [facility] Creatinine [Mass/volume] in Serum or Plasma 0.72 mg/dL 0.70-1.20 [facility] Glucose [Mass/volume] in Serum or Plasma 99 mg/dL 70-140 [facility] Alkaline phosphatase [Enzymatic activity/volume] in Serum or Plasma 105 U/L 40-129 [facility] Potassium [Moles/volume] in Serum or Plasma 3.9 mmol/L 3.4-5.1 [facility] Protein [Mass/volume] in Serum or Plasma 6.4 g/dL 6.4-8.3 [facility] Sodium [Moles/volume] in Serum or Plasma 135 mmol/L 136-145 L [facility] Aspartate aminotransferase [Enzymatic activity/volume] in Serum or Plasma 16 U/L <40 [facility] Urea nitrogen [Mass/volume] in Serum or Plasma 8 mg/dL 8-23 [facility] Osmolality of Serum or Plasma by calculation 278 mosm/kg 275-300 [facility] Creatinine/Urea nitrogen [Mass Ratio] in Serum or Plasma 11 [facility] Bicarbonate [Moles/volume] in Serum 26 mmol/L 22-29 [facility] Alanine aminotransferase [Enzymatic activity/volume] in Seru m or Plasma 13 U/L <41 [facility] Anion gap 3 in Serum or Plasma 10 mmol/L 8-15 [facility] Glomerular filtration rate/1.73 sq M pre dicted among non-blacks [Volume Rate/Area] in Serum or Plasma by Creatinine-based formula (MDRD) >6 0 [facility] Glomerular filtration rate/1.73 sq M pre dicted among blacks [Volume Rate/Area] in Serum or Plasma by Creatinine-based formula (MDRD) >60 [facility] ID Date Data Source [id number] 09/10/2020 09:11:37 PM EDT [facility] Name Value Range Interpretation Code Description Data Negin rce(s) Supporting Document(s) [facility] YXZXOk8dQzWKKdIp73/CYJrfIEJum5IyKMjlOEh6SZeoGXGtZ0ToYHX3vD1hMLZ1XPzNIyVlGyGoTzE0 [facility] [file] JV9V40Pdh8D4N++7jrVHdDFZhsXl47Fxd+SJKI/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 [file] Q0KdflX3A3CgezZEEmJNchLcKkID0JYv3HWcA2IOO0vGJdJq2GEmJ0VoJPNkYnPF1BTSf= ID Date Data Source [id number] 09/10/2020 06:43:45 PM EDT [facility] Name Value Range Interpretation Code Description Data Negin e(s) Supporting Document(s) History and Physical [facility] JVGPCg7mPxDPEeJv17/BGLimVOOid0SaVJrrPRy6CYbwGZShC1ZfARM8cO5tKDY2RSkKUvFdAwItLnC4 lbm FeNecYSoUpQMItGkvRGlFeBFtiVzuonUNgMR5WfDD8UGFxQ48iBWLwQJNrD4AsYJJeEQC+Kd4IYGUjrT KaVL1JLamH8A5rd4aODz9fpr7VhPkm9lsd4y3b1mLjxf0D2MarIRkGmo1xJ6xJ57ordXWqv/SwRo8K0q lAImEiP5J1Al14EqYKEXuRUuzwa0UFX/79h+16Duec Fe4MC89Nxla6++Ne2ON0J3e1mj+mj1EZvbniCd2Rw8fl2sxGF0rzYOihUcd8MT/eMt+28wmSn9fb9Do/ RUCzxGHd9RdX8hQaSBSUZKRZYjqpgYEkXTkxprT85eNNsXohRbQSAdwKvk7SW46s3zbP+DI5pOGMz+WT 55DRZUGWYoaQhJwsqHYASQ+SEpIu+lxP2OQNpQ8R2G ijFzOzgXLk97elMlFntHlqGfZrjOEk2GZjGHxbcCX5nD7xDMbQi7PqPCt7bNumMrzuhI6B+uiF75OIvt PzW3wKGjK7oWeAuJjKkGatvzi+Rx+VPM+OOU1TFMua1TxaL9/C3sydsk4i89mPNQbfU4TRqhGWOycevj AMdRkHx3DtKDpH86sd2LNC0bwiRoTt0wx35MAR+c+i 67Ys8PAKUlsR6KE+FbaHymbaEy6svfR5cZf25/ll6j8WYaKgwnwvU9h5hb3HtPw9szQKl5OPwaATJkzu Jk8UF172FeWKbjQSVJfBzEEs4Lgu09RgkANGDszajDqx8oZaaSMgzfybQz1JH9QsywEviAORw94tmwnG NwyWT9wfRz9vFjRmArJwyqiDqnhIjN6xkX26rLGspI v9653pHhYD5/K8+gJgB7mUb0L6WXHXX1VZmga6HsnUdWgPvsiPQz9wqXTAkb7HUbrxnRKUJ1LhD9wQSj tI956X34xYQykANOaiDXib2iXveUtjKzpsyuXpvxW1EBkPWDqw+bibiana/CyakZkObMJhd4dz+sbpVEh8lY [file] AgICAgICAgICAgICAgICAgICAgICAgICAgICAgICAg ICAgICAgICAgICAgICAgICAgICAgICAgICAgICANCiAgICAgICAgICAgICAgICAgICAgICAgICAgICAg ICAgICAgICAgICAgICAgICAgICAgICAgICAgICAgICAgICAgICAgICAgICAgICAgICAgICAgICAgICAg ICAgICAgICAgICANCiAgICAgICAgICAgICAgICAgIC AgICAgICAgICAgICAgICAgICAgICAgICAgICAgICAgICAgICAgICAgICAgICAgICAgICAgICAgICAgIC AgICAgICAgICAgICAgICAgICAgICANCiAgICAgICAgICAgICAgICAgICAgICAgICAgICAgICAgICAgIC AgICAgICAgICAgICAgICAgICAgICAgICAgICAgICAg ICAgICAgICAgICAgICAgICAgICAgICAgICAgICAgICANCiAgICAgICAgICAgICAgICAgICAgICAgICAg ICAgICAgICAgICAgICAgICAgICAgICAgICAgICAgICAgICAgICAgICAgICAgICAgICAgICAgICAgICAg ICAgICAgICAgICAgICANCiAgICAgICAgICAgICAgIC AgICAgICAgICAgICAgICAgICAgICAgICAgICAgICAgICAgICAgICAgICAgICAgICAgICAgICAgICAgIC AgICAgICAgICAgICAgICAgICAgICAgICANCiAgICAgICAgICAgICAgICAgICAgICAgICAgICAgICAgIC AgICAgICAgICAgICAgICAgICAgICAgICAgICAgICAg ICAgICAgICAgICAgICAgICAgICAgICAgICAgICAgICAgICANCiAgICAgICAgICAgICAgICAgICAgICAg ICAgICAgICAgICAgICAgICAgICAgICAgICAgICAgICAgICAgICAgICAgICAgICAgICAgICAgICAgICAg ICAgICAgICAgICAgICAgICANCiAgICAgICAgICAgIC AgICAgICAgICAgICAgICAgICAgICAgICAgICAgICAgICAgICAgICAgICAgICAgICAgICAgICAgICAgIC AgICAgICAgICAgICAgICAgICAgICAgICAgICANCiAgICAgICAgICAgICAgICAgICAgICAgICAgICAgIC AgICAgICAgICAgICAgICAgICAgICAgICAgICAgICAg ICAgICAgICAgICAgICAgICAgICAgICAgICAgICAgICAgICAgICANCjw/gFXhK0qtaSLvjvX1B5kpOa7O Pa4HQC8jz5JoIOPoNRkddsAeMdjFUdCsAVIfLxvVDej5UOxnHP0MxDDsV6PrU1UwLPypTR9FIFWxCVIc mCJlQRQbTXDfGaS0GFTpHSziOJ6RyNPdQApsUBObZL EvChMgOLDvZV9CZDVyE601nxRgZo7UFa0IUpHeGK5osb7AIlmaYFSgNshVAtu2TSawKK1QwMPbiDVlPA QhULKVKhSjD0qlv5VeFoziIOJRNIujAJ1Gn8MuqFPsPUw+Og3FWE2yj1XbQFzeCDYfTZ2xbg4ETWyNRf KsL9BxoGpjGDjbRCAqeUOUvXIfEM23NIWlOBBWCSAq pEO4OkV6MhNxJqFxQBx7HFZaEU7tDOkeXQ7RFVU5ZLfgYEMbQSTxK7fUEzItUCJzWAHuyLfgSJ2YLcGe P5WrhuGllWZxFjYeJTRKOd5+ZJuqteGtWzxWQjS7SMMvr4UvBTf0JV9PHPTaCPjjBM8IXJEbfT3oNLta AX7RMiDnPNKpQAXPUjWdK84duBQyHPe9V6VeRjDqHK VkRmlsZXMgPDwvTmFtZXMgWyBdDQogID4+ID4+OOyyKK8HYMtaseTkJUAbZi0QMLFqSRJeMG1tUIEdVH WzD7X6dAmvHSSTNdVmS2dyrmosEB1tXXBgW878tOlciuQtZRO6CRYbLk1QEDSiDNI4GASduFVmTjQvGX MHUMylDD3ZgPJtVRT1oU3tSGuhJDDbAZRuY5sRKmEu lKukAI07aUkqutWhiJEaLAa+Gs1FHD4jo8AoTOm0qyRdUUbuVAThVLpaGWQdMCMkWBNeOUA9MYA1KAWQ AgZmDYHkLRYaQRymMJMdKSIlft3GKIKzPZDnGgT2EgHxCZMyKZFnRHpzEJGoUNN2AJP8KAHqPYLdRU0R XmFtHZJwQFPwJVwhZVYjYTOlot3XIBJuNWQsGiYlSb ImKQHsTPFnKUpeBNDnPXKwGeC2XLQxNRDtDS3UAzHdEIJsMIGoHNRuIVPqYNAadb3MRCOpWAWqPQO1UR SzVHDuAKKgMNpvFECcPJX2VVVkUNAkORTjKA3AZlBlTQQtUMK5ZgklCDZiZLYzut7GCFAcLEAxJjpyAE IxUSHoKXRyJUrcMKZnLTD8Gnc3TEUjMZSdNR9QDqMc DALiVGs8DSMsCUUlCYPwqp4OWNOwVNBpLQS1LBUxOGDyZEGzMIbfXQAoGUF1VZH0QWClGLIiSI3ZOdWg XGXpSEyqKtLwKJVaQGTmnw9BKPPcRHXgQCWnZFFjCPCjVBLeCXcsLFFzJHLkDSt3DHWgBGCxOZ5FFiGm WHBzQXZ5KdTnNIArNLAqpz0MLRWrVTPgTNf6NWTeUM UeENYaWXlsSAWmWGRmTjXzQDLjOJZjAM8QCmIqLBHyVvU0RyCzUBAlYHHvxv7IULEdPGGgNnc1KYYuRZ GdWLPdNNizBDOyKIViNTT0QHJeBHQbWD4LIoSyVFTqOtCqBMIcLPHaFPSywt9KHZUrZMXiYhO4HFPhZF QjPWLxSErrHAJfCLF2XKYbXFHzMODrAT6DOdGqWUCs KkKbWSXaLWBpHDRosm5UWHOaREFvLLZxYxYkRAMtQUGdJOu7hwNkrZNrGWz5HO2ZP4HfjiTwQmVPJx7J l031DFS9EUUlJt5RC9rzSh8yIXWxJVKAFt4PFRr3D1H3WvY7YuxkUxT8DKR1BoO4XyVfZUCfQEZfVxJn Mjc+EZsrZlRwRSY2HZSlJKDlFjG1CNJjQFB8WrN6C6 WtW4CrJe5dDXPQIy1+HAxotERopFudDQKYQdT1DJkjBExeHEQYTn2K ID Date Data Source [id number] 09/10/2020 06:13:38 PM EDT [facility] Name Value Range Interpretation Code Description Data Negin rce(s) Supporting Document(s) Consultation [facility] DMGJIi5qUiHRPnIh62/XMQudATFcq2NoYWzfOKy8JZqePRKmB8JnPND2bD1hKUM9FCnRPaAlRjTtFiE5 lbm [file] 1i6e/1TeQPpb/Hng54kH4A1B7m2dFoo1M6FMy0FBXDPxYzQUUMGr8kZRB+BLvZ9hn2fpQsp4/hN5A+identification clerk [file] VRjKexOkdZgjnU5+7TwR/Pe0MeP++XWLXO/Miguel Angel+Q3m [file] AgICAgICAgICAgICAgICAgICAgICAgICAgICAgICAgICAgICAgICAgICAgICAgICAgICAgICAgICAgIC AgICAgICAgICAgICAgICAgICAgICAgICAgDQogICAgICAgICAgICAgICAgICAgICAgICAgICAgICAgIC AgICAgICAgICAgICAgICAgICAgICAgICAgICAgICAg ICAgICAgICAgICAgICAgICAgICAgICAgICAgICAgICAgICAgDQogICAgICAgICAgICAgICAgICAgICAg ICAgICAgICAgICAgICAgICAgICAgICAgICAgICAgICAgICAgICAgICAgICAgICAgICAgICAgICAgICAg ICAgICAgICAgICAgICAgICAgDQogICAgICAgICAgIC AgICAgICAgICAgICAgICAgICAgICAgICAgICAgICAgICAgICAgICAgICAgICAgICAgICAgICAgICAgIC AgICAgICAgICAgICAgICAgICAgICAgICAgICAgDQogICAgICAgICAgICAgICAgICAgICAgICAgICAgIC AgICAgICAgICAgICAgICAgICAgICAgICAgICAgICAg ICAgICAgICAgICAgICAgICAgICAgICAgICAgICAgICAgICAgICAgDQogICAgICAgICAgICAgICAgICAg ICAgICAgICAgICAgICAgICAgICAgICAgICAgICAgICAgICAgICAgICAgICAgICAgICAgICAgICAgICAg ICAgICAgICAgICAgICAgICAgICAgDQogICAgICAgIC AgICAgICAgICAgICAgICAgICAgICAgICAgICAgICAgICAgICAgICAgICAgICAgICAgICAgICAgICAgIC AgICAgICAgICAgICAgICAgICAgICAgICAgICAgICAgDQogICAgICAgICAgICAgICAgICAgICAgICAgIC AgICAgICAgICAgICAgICAgICAgICAgICAgICAgICAg ICAgICAgICAgICAgICAgICAgICAgICAgICAgICAgICAgICAgICAgICAgDQogICAgICAgICAgICAgICAg ICAgICAgICAgICAgICAgICAgICAgICAgICAgICAgICAgICAgICAgICAgICAgICAgICAgICAgICAgICAg ICAgICAgICAgICAgICAgICAgICAgICAgDQogICAgIC AgICAgICAgICAgICAgICAgICAgICAgICAgICAgICAgICAgICAgICAgICAgICAgICAgICAgICAgICAgIC AuSHJqXQYfJVMzHIUyRDGsWNHaPBQhLZPlBQIdAWFoJVKlTUp3C3uwMKUbBVHaXN4qEAh0Dl6+DQoNCm QlZFX7osEpnV1ZEO3ua2XkTTqrDNBin0EaKHt6KY7D HPUvIIgaZC6PUFuvht3QWLYyZVKifVDTq8coWbNpKJQ4YBEgBbwsBG7XNINqO6rjnpAqWETaSAPVCZwt PZLZPYgkEOVIGXVtHKZwPhNxWDvsBO1Ju0LyaHS4CIf+Qm7CXZ2tq7MnMGiiJBTmIQ3gvs1SYHhXAzBd A5TrdgZ5ADH7YYMwZg8SMUYzXDSouUSaRZDsKRPINf TqT1JisT08TUHHPu3+XTcxvdDzOmbABgL4EUTwz7KeSIt0RO4DQHWsYFr1nJNaY68vu0KxiXYzRvqsIn FdbVDGxbArcfpkOBSsVUArZh5fOX6fXGTlKFEvKnE8XGSEPD5HVSOcZKCjvBOgGCZpGZORIG5WGCfcFW J6FNNagxSuzUJdDVkdZC7IQXBamsLtWdEqOVAQVUk+ Hb5EOH9rx5FcCNviYuTrLM9pjl7LUZnIVlEfS0E4tLSxW2D5KTzmGq0LNRZfZSRaQbGkPZYFWFfdBX6Q JF9bgsM2IJ5HkUZcVADpCOUroDSoHKj2A87lfFQyHDbiZC1EWKC+Romie+Ro6AYSYeMRWkBWJkPhRmVQVU UqNnW5UsH4GCz9SkJ3XcAT21qWzurbPvYBghQW5JOC 3lWHEoOBVNYM8DmITkfA7hgfGtLHVpLPZKRkMmZ11ubQAzGRHaIEKnWRDxEl7YZVBqH0XwszJbwWwbaz IdZXEgDDSGBO0LVPhyodRhsPAuoRagBS74uGcuRM2KGk6CTtYiZK2vya0GxCYgXb9EFUBmMc2QSMJbET AxYFZrWTB8FHGbExZlCJjeSPPcQZKvGNX9ZZWjMIVn DJ2CEiElSQEnZxE1BIlxTDUpJWBccj8NLFOaYHBiLRDdFyOaWFYmNURjANcrVNKgAYWpGLF7FJPkYEOw VV2UVwOeTPRzFJA7VXcmZOQlBAExgl9KGCLjOFVkEjg6BhMsACXqUXKzRZppXCLtUVT2VJJ5GVFtROKl ZQ7QSqXrCJOnNOprXtPcDLAySGPphk7IKCJkKHLuXP PgUSGzAFXhNBBkNCkyLKAwLGFjSaCsTCDsUPAwFB6KUeYrXXHbYBPzYbQlXDBuUJGjhs6ILFGoSJPlTw A2NhUaRFOyOTLoCYtqPKZnHEE7KpHcUUEtVAUrFH3XDeFjWLMsVAF7CvrgYBNsFZMflr9NWVWoRPLlKU flSrYwXSSrXDFxOWkdOMWjNPA6BqzvUCEwXMLlBF4V JhVmCUGrVOR2YJUuTAYiGZDzjm1WRENzJTWvYbQ1HCFkFRHqSAEdKYkpLGZmMCP3XQNvMBMkVTMeDF6N CwNmNRLwNWkxFjNcZTXyTKOnbw3URONqGAEdJaRrVNKpJAGcOFYgTXtfLAJhVYE9IbgyLIKxAIEoNO2Y UeBgALEdNTq5HdoyKTXtYDUvuu8VIZLzACTdFIq6MZ ZoLLRiIBCfHTpnXPQfREEuLMy2LPIxYRHvMJ5GNcGgRXAoYqH5ErRuRYOsONSusb7YKPNkJYMiVGerYj DtFIAsVKBaBVdjYYUaDNStVNbxVWPwLUDjGX0RNrRnXQAwPzDvGofmWVWbLTLxeg7CVCBfCMQjVhN8BJ PlPORyGXBhWAdtTXDhCSSmIzY8PNRfZGPvEL9CCtEe RWWfHoO7VdgoQYFvOVEhkk8QJGZsXMIeEnm6LpVdWPYnIABjSYvfYKKwLMY1LiXcUOQlEQZpRY2VRpBn MAGuFrY0PCPzURNyBPPzzj5ZKQLlMOHtFGB0YuEbQDRpRVHwUXf5alLqnDYdUUv8DV4YT3KvkmKzAvxN Sy1Xh267MIW7VZPqQh6FA7vsNj5wUWDdIXNQHy4JXV e0HfNyB2SzFtF8ABIeIRBkAxclSKPbIYqtSso5YxRsBCA+ZKjdDMEdNWBeMuz5STZqUAEmDHO9OCWvH4 XlWZGgMuN6Pv9kKHGLXa3+LEkmzRMlaDhnYVNXAcK5Wil0YPevDPBWQl4N ID Date Data Source [id number] 09/10/2020 03:36:39 PM [facility] CT THORAX WITH CONTRAST [id number] RESUL TInterpreted by:Raz Blanc, MDPROCEDURE INFORMATION: Exam: [...] THIS DOCUMENT HAS BEEN ELECTRONICALLY SIGNED BY RZA BLANC MDThis document has been electronically signed by Raz Blanc MD on 09/10/2020 3:36 PM Name Value Range Interpretation Code Description Data Negin rce(s) Supporting Document(s) ID Date Data Source [id number] 09/10/2020 04:14:35 AM [facility] Name Value Range Interpretation Code Description Data [facility] rce(s) Supporting Document(s) Leukocytes [#/volume] in Blood by Automated count 7.5 10*3/uL 4-10 [facility] Erythrocytes [#/volume] in Blood by Automated count 4.98 10*6/uL 4.6- 6.1 [facility] Hemoglobin [Mass/volume] in Blood 15.9 g/dL 13.5-18 [facility] Hematocrit [Volume Fraction] of Blood by Automated count 46.4 % 4 1-53 [facility] Erythrocyte mean corpuscular volume [Entitic volume] by Auto mated count 93.1 fL 80-96 [facility] Erythrocyte mean corpuscular hemoglobin [Entitic mass] by Automated count 32.0 pg 27-33 [facility] Erythrocyte mean corpuscular hemoglobin concentration [Mass/volume] by Automated count 34.4 g/dL [facility]0-[facility] distribution width [Ratio] by Automated count 13.2 % 11.5-14.5 [facility] Platelets [#/volume] in Blood by Automated count 189 10*3/uL 150-400 [facility] Differential cell count method - Blood [facility] Neutrophils/100 leukocytes in Blood by Automated count 67 % [facility] Lymphocytes/100 leukocytes in Blood by Automated count 20 % [facility] Monocytes/100 leukocytes in Blood by Automated count 11 % [facility] Eosinophils/100 leukocytes in Blood by Automated count 2 % [facility] Basophils/100 leukocytes in Blood by Automated count 0 % [facility] Neutrophils [#/volume] in Blood by Automated count 4.99 10*3/uL 1.8-7 .0 [facility] Lymphocytes [#/volume] in Blood by Automated count 1.49 10*3/uL 1.2-4 .0 [facility] Monocytes [#/volume] in Blood by Automated count 0.83 10*3/uL 0-0.8 H [facility] Eosinophils [#/volume] in Blood by Automated count 0.16 10*3/uL 0-0.5 [facility] Basophils [#/volume] in Blood by Automated count 0.03 10*3/uL 0-0.2 [facility] Nucleated erythrocytes/100 leukocytes [Ratio] in Blood by Automated count 0 /100{WBCs} 0-0 [facility] ID Date Data Source [id number] 09/10/2020 04:36:27 AM EDT [facility] Name Value Range Interpretation Code Description Data Negin rce(s) Supporting Document(s) Albumin [Mass/volume] in Serum or Plasma by Bromocresol green (BCG) dye binding method 3.9 g/dL 3.5-5.2 [facility] Bilirubin.total [Mass/volume] in Serum or Plasma 0.9 mg/dL <1.2 [facility] Calcium [Mass/volume] in Serum or Plasma 9.0 mg/dL 8.8-10.2 [facility] Chloride [Moles/volume] in Serum or Plasma 97 mmol/L 98-107 L [facility] Creatinine [Mass/volume] in Serum or Plasma 0.76 mg/dL 0.70-1.20 [facility] Glucose [Mass/volume] in Serum or Plasma 88 mg/dL 70-140 [facility] Alkaline phosphatase [Enzymatic activity/volume] in Serum or Plasma 110 U/L 40-129 [facility] Potassium [Moles/volume] in Serum or Plasma 3.9 mmol/L 3.4-5.1 [facility] Protein [Mass/volume] in Serum or Plasma 6.6 g/dL 6.4-8.3 [facility] Sodium [Moles/volume] in Serum or Plasma 134 mmol/L 136-145 L [facility] Aspartate aminotransferase [Enzymatic activity/volume] in Serum or Plasma 16 U/L <40 [facility] Urea nitrogen [Mass/volume] in Serum or Plasma 12 mg/dL 8-23 [facility] Osmolality of Serum or Plasma by calculation 277 mosm/kg 275-300 [facility] Creatinine/Urea nitrogen [Mass Ratio] in Serum or Plasma 16 [facility] Bicarbonate [Moles/volume] in Serum 23 mmol/L 22-29 [facility] Alanine aminotransferase [Enzymatic activity/volume] in Seru m or Plasma 12 U/L <41 [facility] Anion gap 3 in Serum or Plasma 14 mmol/L 8-15 [facility] Glomerular filtration rate/1.73 sq M pre dicted among non-blacks [Volume Rate/Area] in Serum or Plasma by Creatinine-based formula (MDRD) >6 0 [facility] Glomerular filtration rate/1.73 sq M pre dicted among blacks [Volume Rate/Area] in Serum or Plasma by Creatinine-based formula (MDRD) >60 [facility] ID Date Data Source [id number] 09/13/2020 09:39:00 PM EDT [facility] Surgical Pathology Report See Addendum B Ugo: DAVION RENNERMRN: [id number] Number: [id number] Date: 09/10/2020 00:00Received Date: 09/12/2020 10:49Physician(s): GILDA BLAKE MD OZDEN, NURI, MDSpecimen(s) ReceivedA: Esophageal massClinical HistoryMass in the gastrohepatic ligament.Addendum 09/20/2020 RESULTS OF IMMUNOHISTOCHEMICAL ANALYSIS: This case was sent to [facility] in [place], [place] for PD- Y5zqvvapf (KEYTRUDA) testing and the results are as follows:TEST:Marker Result DescriptionPD-L1 (KEYTRUDA) 25 Expression Reference Range:CPS= Combined positive czhfb=179 x (PD-L1 reactive tumor cells +tumor-associated lymphocytes + macrophages)/(total number of viable tumorcells)CPS <1 = No expressionCPS>1 = ExpressionPD-L1 22C3 pharmaDx(TM) is FDA approved for use in the detection of PD-L1in formalin-fixed paraffin-embedded adenocarcinoma using the EnVision FLEXvisualization system on [employer] Link 48. The assay is indicated as corey in identifying gastric or gastroesophageal junction adenocarcinomapatients for treatment with KEYTRUDA(R) (pembrolizumab). PD-L1 33S4ozlgxJn(TM) is a trademark of [employer], an [employer]pws Addendum Electronically Signed By: Joe Boyd M.D. [...] cm in greatest dimension. Totallysubmitted in one cassette.RUBY\\Microscopic DescriptionSections show tumor cells growing in sheets, [...] developed and their performance characteristics determined by [facility] Pathology department. They have not been cleared or approved by the USFood and Drug Administration. The FDA has determine d that such clearanceor approval is not necessary. Name Value Range Interpretation Code Description Data Negin rce(s) Supporting Document(s) ID Date Data Source [id number] 09/09/2020 05:38:54 PM [facility] Name Value Range Interpretation Code Description Data [facility](s) Supporting Document(s) [facility] KHQCWy5fStLTQaBr96/OEZptNGHky0PvVRicCIy4BUzsKKRzE7KoART2vK5zVLZ0UHnHXrDeLsUoYzT9 [facility] [file] ALHrPCUtQnVnQBd8XsVcZRTmQNm2FiU2LgL7HuHs LJ9URc1ANvK8TDU6lMIgSs4SBXC2ZEQCJaGoGN0ZNXx= ID Date Data Source [id number] 09/09/2020 06:34:54 AM EDT [facility] Name Value Range Interpretation Code Description Data Negin [facility](s) Supporting Document(s) History and Physical [facility] EJQSNd7nEzDCKxVp56/PTIvcICAqj1TjZLqvQSr8YQipQHAoH9AlNAH3uN3rBLB1LCyQYdYzNhAoYcG1 lbm [file] Dayx88Bjdsn3E1qPM5HNBSpuFG+identification clerk/zqhg6aFXB9Ex [file] ICAgICAgICAgICAgICAgICAgICAgICAgICAgICAgICAgICAgICAgICAgICAgICAgICAgICAgICAgICAg ICAgICAgICAgICAgICAgDQogICAgICAgICAgICAgIC AgICAgICAgICAgICAgICAgICAgICAgICAgICAgICAgICAgICAgICAgICAgICAgICAgICAgICAgICAgIC AgICAgICAgICAgICAgICAgICAgICAgICAgDQogICAgICAgICAgICAgICAgICAgICAgICAgICAgICAgIC AgICAgICAgICAgICAgICAgICAgICAgICAgICAgICAg ICAgICAgICAgICAgICAgICAgICAgICAgICAgICAgICAgICAgDQogICAgICAgICAgICAgICAgICAgICAg ICAgICAgICAgICAgICAgICAgICAgICAgICAgICAgICAgICAgICAgICAgICAgICAgICAgICAgICAgICAg ICAgICAgICAgICAgICAgICAgDQogICAgICAgICAgIC AgICAgICAgICAgICAgICAgICAgICAgICAgICAgICAgICAgICAgICAgICAgICAgICAgICAgICAgICAgIC AgICAgICAgICAgICAgICAgICAgICAgICAgICAgDQogICAgICAgICAgICAgICAgICAgICAgICAgICAgIC AgICAgICAgICAgICAgICAgICAgICAgICAgICAgICAg ICAgICAgICAgICAgICAgICAgICAgICAgICAgICAgICAgICAgICAgDQogICAgICAgICAgICAgICAgICAg ICAgICAgICAgICAgICAgICAgICAgICAgICAgICAgICAgICAgICAgICAgICAgICAgICAgICAgICAgICAg ICAgICAgICAgICAgICAgICAgICAgDQogICAgICAgIC AgICAgICAgICAgICAgICAgICAgICAgICAgICAgICAgICAgICAgICAgICAgICAgICAgICAgICAgICAgIC AgICAgICAgICAgICAgICAgICAgICAgICAgICAgICAgDQogICAgICAgICAgICAgICAgICAgICAgICAgIC AgICAgICAgICAgICAgICAgICAgICAgICAgICAgICAg ICAgICAgICAgICAgICAgICAgICAgICAgICAgICAgICAgICAgICAgICAgDQogICAgICAgICAgICAgICAg ICAgICAgICAgICAgICAgICAgICAgICAgICAgICAgICAgICAgICAgICAgICAgICAgICAgICAgICAgICAg FLFtXFNwCLBzSKCvSRBcEYHfXGIzQFHhPKy4R9etQU AjSPWrIO3oWVw0Py2+LVgDWxIjGQG5ixFstI0BXS5zn6SuORcbVHZst2OkUNk3GG8GRCZxZOgwGC0PPJ ejwy0QUPJnAPYlsYOIs4sbBuMoEWJ6FXHdPypfHJ0SRYBwV0rnkuYdUCXrKOXNNVuuKSTUEYxnWGYODI BzAORjOuPqBeYiZUXwDM6JLUDeK496vuDtJA7RVv2K DvWaZX4ukw5HCcWmZYOsWamAEnl2QFmvIT2KyWZopHPvLyBdQQTLRmDoO9wqk7UqDfrvRMYAIRgbWP3I w1BoyQRrPEq+Xc7EGC6ls1DoKQemEgKmGB6oik8OVLsATqKsE2EvwQooERtdZTEeuUYUIR2sRBthOWOr AFStWKFIQQYsaTH6OhY0MfGfQyFvGWA6HRjhCR6zZN tyIP4LGRR8HQfgIAUsLTPxS9iFXtOmZAFcUITyvKlfZF3USqLlR2CgabXhhLHcWxJcNYBOIo7+DQplbm PlBgrJIaR1YDRez4SiBEp8KA7PXGUsHDtrKO4GICMwuE3iIRlvIQ5KLfInNEHwQZFOIiUaJ92qgGRnJH j0X7UnRcYoUSZtVverFOPfMQajFvRzIAUwVnAxDNoe ID4+ID4+KShaNX2VVZlvqfOyMJCgIt5BUHHxGGPkRK7bNFTpCMZqI7I7cAxyDHBMJiBuN3ypfbzrYB2z KHJbF134fHduggRnAXW3YTYfSq3JJIGjBZV3TVNbwTNtReGoDXUSMYwlDB6CqSFrDBH4xR5nTFhxAXHr WAMdE1vGVkXjsIgxGJ25pLwlnjNpkFEcVKs+Pg0KZW 8ax1QyATh8qxQrUDjsHHQ8VJxhNBTtUCBmKFEzWIV8LGW1CCPBYlQsBIZjNZMhPCnhKXCmFVXrap7GXW CnNYZkOKS2ZNFiDWKsPUNdMIpqSDNlGYE1MSGmPWKmYAZfOS6LLhOzQMIvVRZtCBvhOAJzLSDuvq1WSV CiSXEaEpIvLwQiAAFrYZKxGUroQVKiLECyIiB0JGAo OUUdTV4TCrXxFFYsYJl8JyQhKBRiKPGfin0ESOInHGViFpgyMvFjQVYjVRCaQDlpCYOpNRFuAKPaIPDl SDCeQR7FAbClRXIaJNLbSoVcAQFgAOEook5FIIYwAAMgKkz0KgCzAGVqDPEqKVswWBLpODU1JXi4JOMt UZQcTI1MUrSwSVBqLFD3LeEkCUVmYXNjno3CODMfHU ZhVpA5XxAkBALcCQYwZCerWXFgXVX9TII5APQyQCCgTN2MXvKpQWOpQLxvMzZoNJBfMANtwo9MJESjUV LnTlZuUbLtJAHzVDPeZZisFNEuTDZ9Ron8KQBbQORoPE0ABaWxVWObLNr5ZqhsOTHdCYIkdb8GSERcVJ ZxGKx7HnOhVNQmQDFbKQgvRHWmDZE9WtT0GTOdIYEk HG2ZTaWpPMCuUJu9XzezDGAlWSRwza4XEZTiMWFgPXMmDLTuFZOlRGZxLKsyLLFgZMWqQUu1TKEtJIOv GI3RJqKoXBRrPeCmDxLsBAVdVMRckr2JJWJvWSXmRKB3FEVuKBKrFCCwHBraTWIqKRWjYGSaKGJuOCZb TN4OQeVgMBJfYoPuNHpcLXOfDHGozr3MKRErMAHlUp D2JnCgVLCoCVXlXXouHHVeHMXkFuE9ARQjXKFtCL5NUiUyGVXfSjF3GDWqHLHgBYKgwq1JJECeBEWoEJ U1OdVyTZQiJJSqVVwdQSUxQTB8FXi9FQEsBUSdOH5MSjHpPVSqAfTbTwMmNNYeHQIprr1IAQBpXNRvNE WvKCBzGOKwDKMvOXmrYBJzVRT5BKi4YWFySXNtSR4H GpDhRLDbGqmtJXSjCVUfVPWall3AURQrPAXmFjM5UwIjPLTvHPXmHPr6okYnmJVcDTs0CN6FH5NiawCb TeoRKq8Hj008MRR8HHSqSf1DV0tzNx5uAGNcBEWUNs3AGXv5Mwu2QgpdROs9B9WpRFT6RMckFsJtTPqt DUMlHIp1FUc+BMhwVqx7USThPFfzQbS1Enb2SNWeLy PnZYEhYCR3FAIzPm1uWSADMi6+HQcjkVSqlBiqPNBVWyL7QFW0SXszCFPGEq3X ID Date Data Source [id number] 09/09/2020 07:58:06 AM EDT [facility] Name Value Range Interpretation Code Description Data Negin rce(s) Supporting Document(s) HIV 1+2 Ab+HIV1 p24 Ag [Presence] in Serum or Plasma by Immu noassay Non Reactive [facility] Negative for HIV-1 p24 antigenand HIV-1/ HIV-2 antibodies. Nolaboratory evidence of HIVinfection. ID Date Data Source [id number] 09/09/2020 06:37:49 AM EDT [facility] Name Value Range Interpretation Code Description Data Negin rce(s) Supporting Document(s) Leukocytes [#/volume] in Blood by Automated count 7.9 10*3/uL 4-10 [facility] Erythrocytes [#/volume] in Blood by Automated count 5.13 10*6/uL 4.6- 6.1 [facility] Hemoglobin [Mass/volume] in Blood 16.4 g/dL 13.5-18 [facility] Hematocrit [Volume Fraction] of Blood by Automated count 47.7 % 4 1-53 [facility] Erythrocyte mean corpuscular volume [Entitic volume] by Auto mated count 92.9 fL 80-96 [facility] Erythrocyte mean corpuscular hemoglobin [Entitic mass] by Automated count 31.9 pg 27-33 [facility] Erythrocyte mean corpuscular hemoglobin concentration [Mass/volume] by [facility] 34.3 g/[facility] width [Ratio] by Automated count 13.3 % 11.5-14.5 [facility] Platelets [#/volume] in Blood by Automated count 211 10*3/uL 150-400 [facility] Differential cell count method - Blood [facility] Neutrophils/100 leukocytes in Blood by Automated count 71 % [facility] Lymphocytes/100 leukocytes in Blood by Automated count 16 % [facility] Monocytes/100 leukocytes in Blood by Automated count 11 % [facility] Eosinophils/100 leukocytes in Blood by Automated count 2 % [facility] Basophils/100 leukocytes in Blood by Automated count 0 % [facility] Neutrophils [#/volume] in Blood by Automated count 5.71 10*3/uL 1.8-7 .0 [facility] Lymphocytes [#/volume] in Blood by Automated count 1.23 10*3/uL 1.2-4 .0 [facility] Monocytes [#/volume] in Blood by Automated count 0.84 10*3/uL 0-0.8 H [facility] Eosinophils [#/volume] in Blood by Automated count 0.14 10*3/uL 0-0.5 [facility] Basophils [#/volume] in Blood by Automated count 0.03 10*3/uL 0-0.2 [facility] Nucleated erythrocytes/100 leukocytes [Ratio] in Blood by Automated count 0 /100{WBCs} 0-0 [facility] ID Date Data Source [id number] 09/09/2020 06:46:58 AM [facility] Value Range Interpretation Code Description Data Negin rce(s) Supporting Document(s) Prothrombin time (PT) 12.9 s 12.5-14.9 [facility] INR in Platelet poor plasma by Coagulation assay 0.96 [facility] Routine intensity oral anticoagulation I NR is typically 2.0-3.0. Target INR must be clinically individualized. ID Date Data Source [id number] 09/09/2020 06:49:26 AM [facility] Value Range Interpretation Code Description Data Negin rce(s) Supporting Document(s) Erythrocyte sedimentation rate 21 mm/hr <20 H [facility] ID Date Data Source [id number] 09/09/2020 06:58:11 AM [facility] Value Range Interpretation Code Description Data Negin rce(s) Supporting Document(s) Lactate dehydrogenase [Enzymatic activit y/volume] in Serum or Plasma by Lactate to pyruvate reaction 220 U/L 122-225 [facility] ID Date Data Source [id number] 09/09/2020 06:58:11 AM [facility] Value Range Interpretation Code Description Data Negin rce(s) Supporting Document(s) Albumin [Mass/volume] in Serum or Plasma by Bromocresol green (BCG) dye binding method 3.9 g[facility]dL [facility].5[facility]2 [facility] Bil[facility].total [Mass/volume] in Serum or Plasma 0.7 mg/dL <1.2 [facility] Calcium [Mass/volume] in Serum or Plasma 9.5 mg/dL 8.8-10.2 [facility] Chloride [Moles/volume] in Serum or Plasma 96 mmol/L 98-107 L [facility] Creatinine [Mass/volume] in Serum or Plasma 0.73 mg/dL 0.70-1.20 [facility] Glucose [Mass/volume] in Serum or Plasma 102 mg/dL 70-140 [facility] Alkaline phosphatase [Enzymatic activity/volume] in Serum or Plasma 112 U/L 40-129 [facility] Potassium [Moles/volume] in Serum or Plasma 4.0 mmol/L 3.4-5.1 [facility] Protein [Mass/volume] in Serum or Plasma 6.8 g/dL 6.4-8.3 [facility] Sodium [Moles/volume] in Serum or Plasma 132 mmol/L 136-145 L [facility] Aspartate aminotransferase [Enzymatic activity/volume] in Serum or Plasma 14 U/L <40 [facility] Urea nitrogen [Mass/volume] in Serum or Plasma 8 mg/dL 8-23 [facility] Osmolality of Serum or Plasma by calculation 272 mosm/kg 275-300 L [facility] Creatinine/Urea nitrogen [Mass Ratio] in Serum or Plasma 12 [facility] Bicarbonate [Moles/volume] in Serum 22 mmol/L 22-29 [facility] Alanine aminotransferase [Enzymatic activity/volume] in Seru m or Plasma 13 U/L <41 [facility] Anion gap 3 in Serum or Plasma 14 mmol/L 8-15 [facility] Glomerular filtration rate/1.73 sq M pre dicted among non-blacks [Volume Rate/Area] in Serum or Plasma by Creatinine-based formula (MDRD) >6 0 [facility] Glomerular filtration rate/1.73 sq M pre dicted among blacks [Volume Rate/Area] in Serum or Plasma by Creatinine-based formula (MDRD) >60 [facility] ID Date Data Source [id number] 09/08/2020 08:16:36 PM EDT [facility] Name Value Range Interpretation Code Description Data Negin rce(s) Supporting Document(s) Ammonia [Moles/volume] in Plasma 23 umol/L 16-60 [facility] ID Date Data Source [id number] 09/08/2020 07:06:00 PM EDT [facility] Name Value Range Interpretation Code Description Data Negin rce(s) Supporting Document(s) SARS-CoV-2 RNA 2019 nCoV Real-Time RT-PCR: NOT DETECTED [facility] This lab was ordered by [facility] and reported by [facility]. ID Date Data Source [id number] 09/08/2020 09:33:58 PM EDT [facility] Service Cmnt XXX-Imp : NoneRespiratory P CR Panel : PCR ResultsMicroorganism XXX Cult : See Labs Tab for 2019 nCoV RT-PCR resultsHAdV DNA QI GEORGE+non-probe : Not DetectedHCoV [id number] Nph QI GEORGE+non-probe : Not DetectedHCoV [id number] Nph QI GEORGE+non-probe : Not [id number] RNA Nph QI GEORGE+non-probe : Not [id number] RNA Upper resp QI GEORGE+probe : Not [...] DNA Nph Q GEORGE+non-probe : Not DetectedB [id number] DNA Nph GEORGE+non-probe : Not Detected Name Value Range Interpretation Code Description Data Negin rce(s) Supporting Document(s) ID Date Data Source [id number] 09/08/2020 09:33:11 PM EDT [facility] Name Value Range Interpretation Code Description Data Negin rce(s) Supporting Document(s) Specimen source [Identifier] of Unspecified specimen [facility] SARS-CoV-2 RNA 2019 nCoV Real-Time RT-PCR: NOT DETECTED [facility] Assay Performed [facility] Patients first test for [facility] 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 [facility] Patient has symptoms related to [facility] When did you start to experience these symptoms [Date and time] [Phen X] [facility] Patient was hospitalized because of this condition [facility] patient was admitted to ICU for [facility] Patient resides in a congregate care setting [facility] status [facility] ID Date Data Source [id number] 09/08/2020 09:45:57 PM EDT [facility] Value Range Interpretation Code Description Data Negin rce(s) Supporting Document(s) Hepatitis C virus Ab [Presence] in Serum or Plasma by Immuno assay Non Reactive [facility] No serological evidence of active infect ion. If recent exposure is suspected, test for HCV RNA. ID Date Data Source [id number] 09/08/2020 05:54:39 PM EDT [facility] Name Value Range Interpretation Code Description Data Negin rce(s) Supporting Document(s) Leukocytes [#/volume] in Blood by Automated count 7.8 10*3/uL 4-10 [facility] Erythrocytes [#/volume] in Blood by Automated count 4.99 10*6/uL 4.6- 6.1 [facility] Hemoglobin [Mass/volume] in Blood 15.9 g/dL 13.5-18 [facility] Hematocrit [Volume Fraction] of Blood by Automated count 46.4 % 4 1-53 [facility] Erythrocyte mean corpuscular volume [Entitic volume] by Auto mated count 92.9 fL 80-96 [facility] Erythrocyte mean corpuscular hemoglobin [Entitic mass] by Automated count 31.9 pg 27-33 [facility] Erythrocyte mean corpuscular hemoglobin concentration [Mass/volume] by Automated count 34.4 g/dL 32.0-36.0 [facility] Erythrocyte distribution width [Ratio] by Automated count 13.4 % 11.5-14.5 [facility] Platelets [#/volume] in Blood by Automated count 185 10*3/uL 150-400 [facility] Differential cell count method - Blood [facility] Neutrophils/100 leukocytes in Blood by Automated count 72 % [facility] Lymphocytes/100 leukocytes in Blood by Automated count 14 % [facility] Monocytes/100 leukocytes in Blood by Automated count 12 % [facility] Eosinophils/100 leukocytes in Blood by Automated count 1 % [facility] Basophils/100 leukocytes in Blood by Automated count 1 % [facility] Neutrophils [#/volume] in Blood by Automated count 5.67 10*3/uL 1.8-7 .0 [facility] Lymphocytes [#/volume] in Blood by Automated count 1.07 10*3/uL 1.2-4 .0 L [facility] Monocytes [#/volume] in Blood by Automated count 0.91 10*3/uL 0-0.8 H [facility] Eosinophils [#/volume] in Blood by Automated count 0.10 10*3/uL 0-0.5 [facility] Basophils [#/volume] in Blood by Automated count 0.09 10*3/uL 0-0.2 [facility] Nucleated erythrocytes/100 leukocytes [Ratio] in Blood by Automated count 0 /100{WBCs} 0-0 [facility] ID Date Data Source [id number] 09/08/2020 06:13:53 PM [facility] Value Range Interpretation Code Description Data Negin rce(s) Supporting Document(s) Prothrombin time (PT) 12.9 s 12.5-14.9 [facility] INR in Platelet poor plasma by Coagulation assay 0.97 [facility] Routine intensity oral anticoagulation I NR is typically 2.0-3.0. Target INR must be clinically individualized. ID Date Data Source [id number] 09/08/2020 06:13:53 PM [facility] Value Range Interpretation Code Description Data Negin rce(s) Supporting Document(s) aPTT in Platelet poor plasma by Coagulation assay 28.7 s 24.0-33. 0 [facility] ID Date Data Source [id number] 09/08/2020 06:23:35 PM [facility] Value Range Interpretation Code Description Data Negin rce(s) Supporting Document(s) Albumin [Mass/volume] in Serum or Plasma by Bromocresol green (BCG) dye binding method 3.9 g/dL 3.5-5.2 [facility] Bilirubin.total [Mass/volume] in Serum or Plasma 0.7 mg/dL <1.2 [facility] Bilirubin.direct [Mass/volume] in Serum or Plasma 0.2 mg/dL <0.3 [facility] Alkaline phosphatase [Enzymatic activity/volume] in Serum or Plasma 112 U/L 40-129 [facility] Aspartate aminotransferase [Enzymatic activity/volume] in Serum or Plasma 13 U/L <40 [facility] Alanine aminotransferase [Enzymatic activity/volume] in Seru m or Plasma 13 U/L <41 [facility] Protein [Mass/volume] in Serum or Plasma 6.5 g/dL 6.4-8.3 [facility] ID Date Data Source [id number] 09/08/2020 06:23:35 PM [facility] Value Range Interpretation Code Description Data Negin rce(s) Supporting Document(s) Bicarbonate [Moles/volume] in Serum 24 mmol/L 22-29 [facility] Chloride [Moles/volume] in Serum or Plasma 96 mmol/L 98-107 L [facility] Creatinine [Mass/volume] in Serum or Plasma 0.75 mg/dL 0.70-1.20 [facility] Glucose [Mass/volume] in Serum or Plasma 109 mg/dL 70-140 [facility] Potassium [Moles/volume] in Serum or Plasma 4.3 mmol/L 3.4-5.1 [facility] Sodium [Moles/volume] in Serum or Plasma 132 mmol/L 136-145 L [facility] Urea nitrogen [Mass/volume] in Serum or Plasma 6 mg/dL 8-23 [facility] Anion gap 3 in Serum or Plasma 12 mmol/L 8-15 [facility] Osmolality of Serum or Plasma by calculation 271 mosm/kg 275-300 L [facility] Creatinine/Urea nitrogen [Mass Ratio] in Serum or Plasma 9 [facility] Calcium [Mass/volume] in Serum or Plasma 9.3 mg/dL 8.8-10.2 [facility] Glomerular filtration rate/1.73 sq M pre dicted among non-blacks [Volume Rate/Area] in Serum or Plasma by Creatinine-based formula (MDRD) >6 0 [facility] Glomerular filtration rate/1.73 sq M pre dicted among blacks [Volume Rate/Area] in Serum or Plasma by Creatinine-based formula (MDRD) >60 [facility] ID Date Data Source [id number] 09/08/2020 01:03:00 PM EDT [facility] ([facility]) Name Value Range Interpretation Code Description Data Negin rce(s) Supporting Document(s) Influenza A Amplification Laboratory test result [facility] ([facility]) Negative results do not preclude influen za or RSV virus infection and should not be used as the sole basis for treatment or other patient management decisions. Influenza B Amplification Laboratory test result [facility] ([facility]) Negative results do not preclude influen za or RSV virus infection and should not be used as the sole basis for treatment or other patient management decisions. RSV Amplification Laboratory test result [facility] ([facility]) Negative results do not preclude influen za or RSV virus infection and should not be used as the sole basis for treatment or other patient management decisions. Laboratory test finding (navigational concept) Laboratory test result [facility] ([facility]) A false negative result may occur [...] pathogens. DISCLAIMER: Testing was performed using the [facility] SARS-CoV-2 test. This test was developed and its performance characteristics determined by [facility]. This test has not been FDA cleared [...] or revoked sooner. ID Date Data Source [id number] 09/08/2020 01:03:00 PM EDT [facility] Name Value Range Interpretation Code Description Data Negin rce(s) Supporting Document(s) SARS coronavirus 2 RNA [Presence] in Res piratory specimen by GEORGE with probe detection NEGATIVE [facility] This lab was ordered by [facility] a nd reported by [facility]. ID Date Data Source [id number] 09/08/2020 10:56:00 AM EDT [facility] ([facility]) Name Value Range Interpretation Code Description Data Negin rce(s) Supporting Document(s) Laboratory test finding (navigational concept) 115 mg/dL 70-105 [facility] ([facility]) Laboratory test finding (navigational concept) 50.0 % 38.0-51.0 [facility] ([facility]) Laboratory test finding (navigational concept) 134 meq/L 136-145 [facility] ([facility]) Laboratory test finding (navigational concept) 3.9 meq/L 3.5-5.1 [facility] ([facility]) Laboratory test finding (navigational concept) 95 meq/L 98-109 [facility] ([facility]) Laboratory test finding (navigational concept) 4.7 mg/dL 4.5-5.3 [facility] ([facility]) Laboratory test finding (navigational concept) 6 mg/dL 8-26 [facility] ([facility]) Laboratory test finding (navigational concept) 24.0 MM/L 23.0-27.0 [facility] ([facility]) Laboratory test finding (navigational concept) 0.8 mg/dL 0.6-1.3 [facility] ([facility]) ID Date Data Source [id number] 09/08/2020 10:35:00 AM EDT [facility] ([facility]) Name Value Range Interpretation Code Description Data Negin rce(s) Supporting Document(s) Ast/Sgot 16 U/L 7-37 [facility] ([facility]) Alt/SGPT 21 U/L 12-78 [facility] ([facility]) Alkaline Phosphatase 117 U/L 45-117 [facility] ([facility]) Bilirubin,Direct 0.2 mg/dL 0.0-0.2 [facility] ([facility]) Bilirubin,Total 0.7 mg/dL 0.2-1.0 [facility] ([facility]) Total Protein 6.7 GM/DL 6.4-8.2 [facility] ([facility]) Albumin 3.5 GM/DL 3.2-5.2 [facility] ([facility]) Albumin/Globulin Ratio 1.1 [facility] ([facility]) ID Date Data Source [id number] 09/08/2020 10:35:00 AM EDT [facility] ([facility]) Name Value Range Interpretation Code Description Data Negin rce(s) Supporting Document(s) Lipoprotein lipase [Enzymatic activity/volume] in Serum or Plasm a 78 U/L 73-393 [facility] ([facility]) Lactate [Mass/volume] in Serum or Plasma 1.2 mmol/L 0.4-2.0 [facility] ([facility]) Y/N query for Sepsis Lactate Rule: Y ID Date Data Source [id number] 09/08/2020 10:35:00 AM EDT [facility] ([facility]) Name Value Range Interpretation Code Description Data Negin rce(s) Supporting Document(s) White Blood Count 7.7 10 4.0-10.0 [facility] ([facility]) Red Blood Count 5.43 10 4.30-6.10 [facility] ([facility]) Hemoglobin 16.9 g/dL 13.5-17.5 [facility] Hematocrit 50.0 % 42.0-52.0 [facility]) Mean Corpuscular Volume 92.1 fl 80.0-96.0 [facility] ([facility]) Mean Corpuscular HGB Conc 33.8 g/dL 32.0-36.5 [facility] ([facility]) Mean Corpuscular Hemoglobin 31.1 pg 27.0-33.0 [facility] ([facility]) Red Cell Distribution Width 12.2 % 11.5-14.5 [facility] ([facility]) Platelet Count, Automated 198 10 150-450 [facility] ([facility]) Lymph % 13.3 % 24.0-44.0 [facility]) Neutrophils % 73.2 % 36.0-66.0 [facility] [place] % 11.1 % 2.0-8.0 [facility] Eos % 1.6 % 0.0-3.0 [facility]) Baso % 0.1 % 0.0-1.0 [facility]) Immature Granulocyte % 0.7 % 0-3.0 [facility] ([facility]) Neutrophils # 5.6 10 1.5-8.5 [facility] ([facility]) Nucleated Red Blood Cell % 0.0 % 0-0 [facility] ([facility]) Lymph # 1.0 10 1.5-5.0 [facility]) [place] # 0.9 10 0.0-0.8 [facility] Eos # 0.1 10 0.0-0.5 [facility] Baso # 0.0 10 0.0-0.2 [facility]) ID Date Data Source [id number] 08/13/2020 10:51:00 AM EDT [facility] [address] [place] [address] [phone] NAME SEX PT STATUS ACCOUNT NUMBER [facility] ER [id number] ORDERING PHYSICIAN LOCATION MEDICAL RECORD NO. Rush Collins MD ER [id number] ATTENDING PHYSICIAN DATE OF DATE OF EXAM/TIME [...] rce(s) Supporting Document(s) ID Date Data Source [id number] 08/13/2020 10:44:00 AM EDT [facility] [address] [place] [address] [phone] NAME SEX PT STATUS ACCOUNT NUMBER [facility] ER [id number] ORDERING PHYSICIAN LOCATION MEDICAL RECORD NO. Rush Collins MD ER [id number] ATTENDING PHYSICIAN DATE OF DATE OF EXAM/TIME [...] rce(s) Supporting Document(s) ID Date Data Source [id number] 08/13/2020 09:51:00 AM EDT [facility] Name Value Range Interpretation Code Description Data Negin rce(s) Supporting Document(s) Leukocytes [#/volume] in Blood by Automated count 8.4 10*3/uL 4.45-10 .71 N [facility] Erythrocytes [#/volume] in Blood by Automated count 5.36 10*6/uL 4.3- 6.1 N [facility] Hemoglobin [Moles/volume] in Blood 16.9 g/dL 13-18 N [facility] Hematocrit [Volume Fraction] of Blood by Automated count 48.9 % 4 2-52 N [facility] Erythrocyte mean corpuscular volume [Ent itic volume] in Cord blood by Automated count 91 fL 80-96 N [facility] Erythrocyte mean corpuscular hemoglobin [Entitic mass] by Au tomated count 32 pg 27-31 Above high normal [facility] Erythrocyte mean corpuscular hemoglobin concentration [Mass/volume] in Cord blood 35 g/dL 33-37 N [facility] Erythrocyte distribution width [Entitic volume] by Automated count 12 % 11-15 N [facility] Platelets [#/volume] in Blood by Automated count 193 10*3/uL 130-472 N [facility] Platelet mean volume [Entitic volume] in Blood 9.1 fL 9.1-13.1 N [facility] Neutrophils/100 leukocytes in Blood by Automated count 76.5 % 41- 77 [facility] Neutrophils [#/volume] in Blood by Automated count 6.4 U 1.7-7.6 N [facility] Lymphocytes/100 leukocytes in Blood by Automated count 13.8 % 14-46 Below low normal [facility] Lymphocytes [#/volume] in Blood by Automated count 1.2 U 0.6-4.6 N [facility] Monocytes/100 leukocytes in Blood by Automated count 8.0 % 4-12 N [facility] Monocytes [#/volume] in Blood by Automated count 0.7 U 0.2-1.2 N [facility] Eosinophils/100 leukocytes in Blood by Automated count 0.8 % 0-7 N [facility] Eosinophils [#/volume] in Blood by Automated count 0.1 U 0.0-0.5 N [facility] Basophils/100 leukocytes in Blood by Automated count 0.5 % 0.4-1 .3 N [facility] Basophils [#/volume] in Blood by Automated count 0.0 U 0.0-0.2 N [facility] NUCLEATED RED BLOOD CELL 0 % [facility] NUCLEATED RED BLOOD CELL# 0 U [facility] Immature granulocytes [Presence] in Blood by Automated count 0-2 N [facility] Immature granulocytes [#/volume] in Blood by Automated count 0.0 U 0-0.1 N [facility] Manual Differential panel - Blood NO [facility] ID Date Data Source [id number] 08/13/2020 10:06:00 AM EDT [facility] Name Value Range Interpretation Code Description Data Negin rce(s) Supporting Document(s) Urea nitrogen [Mass/volume] in Serum or Plasma 6 mg/dL 9-23 Below low normal [facility] Sodium [Moles/volume] in Serum or Plasma 134 mmol/L 132-146 N [facility] Potassium [Moles/volume] in Serum or Plasma 4.4 mmol/L 3.5-5.5 N [facility] Chloride [Moles/volume] in Serum or Plasma 104 mmol/L 99-109 N [facility] Carbon dioxide, total [Moles/volume] in Serum or Plasma 28 mmol/L 20 -31 N [facility] Anion gap in Serum or Plasma 6 mmol/L 8-16 Below low normal [facility] Glucose [Mass/volume] in Serum or Plasma 111 mg/dL 74-106 Above high normal [facility] Creatinine 0.8 mg/dL 0.5-1.1 N [facility] Glomerular filtration rate/1.73 sq M.pre dicted [Volume Rate/Area] in Serum or Plasma Greater Than 60 ABOVE 60 [facility] Alanine aminotransferase [Enzymatic acti vity/volume] in Serum or Plasma by With P-5'-P 17 U/L 10-49 N [facility] Aspartate aminotransferase [Enzymatic ac tivity/volume] in Serum or Plasma by With P-5'-P 8 U/L 0-33 N [facility] Alkaline phosphatase [Enzymatic activity/volume] in Serum or Plasma 114 U/L 45-129 N [facility] Calcium [Mass/volume] in Serum or Plasma 9.0 mg/dL 8.5-10.1 [facility] Bilirubin.total [Mass/volume] in Serum or Plasma 0.7 mg/dL 0.3-1.2 [facility] Albumin [Mass/volume] in Serum or Plasma by Bromocresol purple (BCP) dye binding method 3.7 g/dL 3.2-4.8 N [facility] Protein [Mass/volume] in Serum or Plasma 7.2 g/dL 5.7-8.2 [facility] ID Date Data Source [id number] 08/18/2020 07:32:00 PM EDT [facility] Name Value Range Interpretation Code Description Data Negin rce(s) Supporting Document(s) Varicella zoster virus IgM Ab [Units/volume] in Serum by Imm unoassay <=0.90 <=0.90 [facility] < or = 0.90 Negative 0.91 [...] intwo or more weeks.THIS TEST WAS PERFORMED AT:[id number] [place] [address]XHUEBQKSILVIA CORTEZ MD,PHD ID Date Data Source [id number] 08/13/2020 09:51:00 AM EDT [facility] Name Value Range Interpretation Code Description Data Negin rce(s) Supporting Document(s) Erythrocyte sedimentation rate by Westergren method 1 mm/hr 0-20 N [facility] @[facility] manual test result: 1@by Angela naidu at 08/13/20 0944. ID Date Data Source [id number] 08/13/2020 10:06:00 AM EDT [facility] Name Value Range Interpretation Code Description Data Negin rce(s) Supporting Document(s) C reactive protein [Mass/volume] in Serum or Plasma Less Than 2.9 0.0 -5.0 N [facility] @Report as less than lower limit ID Date Data Source [id number] 08/18/2020 07:32:00 PM EDT [facility] Name Value Range Interpretation Code Description Data Negin rce(s) Supporting Document(s) Varicella zoster virus IgG Ab [Units/volume] in Serum by Immunoassay 1888.00 [facility] Index Interpretatio n --------- <135.00 [...] Antibody Immunity Screen, ACIF.THIS TEST WAS PERFORMED AT:[facility] [address]HNNORE MERATI,MD ID Date Data Source [id number] 08/13/2020 09:40:00 AM EDT [facility] ([facility]) Name Value Range Interpretation Code Description Data Negin rce(s) Supporting Document(s) Varicella zoster virus IgG Ab [Units/volume] in Serum by Immunoassay 1888.00 [facility] [facility] ([facility] ) HEAD AND FACIAL NUMBNESS C reactive protein [Mass/volume] in Serum or Plasma by High sensitivity method Laboratory test result 0.0-5.0 [facility] ([facility]) HEAD AND FACIAL NUMBNESS Varicella zoster virus IgM Ab [Units/volume] in Serum by Immunoassay Laboratory test result [facility] ([facility] ) HEAD AND FACIAL NUMBNESS ID Date Data Source [id number] 08/13/2020 09:40:00 AM EDT [facility] ([facility]) Name Value Range Interpretation Code Description Data Negin rce(s) Supporting Document(s) Urea nitrogen [Mass/volume] in Serum or Plasma 6 mg/dL 9-23 [facility] ([facility]) HEAD AND FACIAL NUMBNESS Sodium [Moles/volume] in Serum or Plasma 134 mmol/L 132-146 [facility] ([facility]) HEAD AND FACIAL NUMBNESS Potassium [Moles/volume] in Serum or Plasma 4.4 mmol/L 3.5-5.5 [facility] ([facility]) HEAD AND FACIAL NUMBNESS Chloride [Moles/volume] in Serum or Plasma 104 mmol/L 99-109 [facility] ([facility]) HEAD AND FACIAL NUMBNESS Anion gap in Serum or Plasma 6 mmol/L 8-16 [facility] ([facility]) HEAD AND FACIAL NUMBNESS Carbon dioxide, total [Moles/volume] in Serum or Plasma 28 mmol/L 20 -31 [facility] ([facility]) HEAD AND FACIAL NUMBNESS Creatinine 0.8 mg/dL 0.5-1.1 [facility] HEAD AND FACIAL NUMBNESS Glucose [Mass/volume] in Serum or Plasma 111 mg/dL 74-106 [facility] ([facility]) HEAD AND FACIAL NUMBNESS Alanine aminotransferase [Enzymatic acti vity/volume] in Serum or Plasma by With P-5'-P 17 U/L 10-49 [facility] HEAD AND FACIAL NUMBNESS Glomerular filtration rate/1.73 sq M.pre dicted [Volume Rate/Area] in Serum or Plasma Laboratory test result [facility] HEAD AND FACIAL NUMBNESS Alkaline phosphatase [Enzymatic activity/volume] in Serum or Plasma 114 U/L 45-129 [facility]) HEAD AND FACIAL NUMBNESS Aspartate aminotransferase [Enzymatic ac tivity/volume] in Serum or Plasma by With P-5'-P 8 U/L 0-33 [facility]) HEAD AND FACIAL NUMBNESS Calcium [Mass/volume] in Serum or Plasma 9.0 mg/dL 8.5-10.1 [facility]) HEAD AND FACIAL NUMBNESS Albumin [Mass/volume] in Serum or Plasma by Bromocresol purple (BCP) dye binding method 3.7 g/dL 3.2-4.8 [facility]) HEAD AND FACIAL NUMBNESS Bilirubin.total [Mass/volume] in Serum or Plasma 0.7 mg/dL 0.3-1.2 [facility] HEAD AND FACIAL NUMBNESS Protein [Mass/volume] in Serum or Plasma 7.2 g/dL 5.7-8.2 [facility] ([facility] HEAD AND FACIAL NUMBNESS ID Date Data Source [id number] 08/13/2020 09:40:00 AM EDT [facility] ([facility]) Name Value Range Interpretation Code Description Data Negin rce(s) Supporting Document(s) Erythrocyte sedimentation rate by Westergren method 1 [facility] 0-20 [facility] ([facility]) HEAD AND FACIAL NUMBNESS ID Date Data Source [id number] 08/13/2020 09:40:00 AM EDT [facility] ([facility]) Name Value Range Interpretation Code Description Data Negin rce(s) Supporting Document(s) Leukocytes [#/volume] in Blood by Automated count 8.4 10*3/uL 4.45-10 .71 [facility] ([facility]) HEAD AND FACIAL NUMBNESS Hemoglobin [Moles/volume] in Blood 16.9 g/dL 13-18 [facility] ([facility]) HEAD AND FACIAL NUMBNESS Erythrocytes [#/volume] in Blood by Automated count 5.36 10*6/uL 4.3- 6.1 [facility] ([facility]) HEAD AND FACIAL NUMBNESS Erythrocyte mean corpuscular volume [Ent itic volume] in Cord blood by Automated count 91 fL 80-96 [facility] ([facility]) HEAD AND FACIAL NUMBNESS Hematocrit [Volume Fraction] of Blood by Automated count 48.9 % 4 2-52 [facility] ([facility]) HEAD AND FACIAL NUMBNESS Erythrocyte mean corpuscular hemoglobin concentration [Mass/volume] in Cord blood 35 g/dL 33-37 [facility] ([facility]) HEAD AND FACIAL NUMBNESS Erythrocyte mean corpuscular hemoglobin [Entitic mass] by Au tomated count 32 pg 27-31 [facility] ([facility]) HEAD AND FACIAL NUMBNESS Platelets [#/volume] in Blood by Automated count 193 10*3/uL 130-472 [facility] ([facility]) HEAD AND FACIAL NUMBNESS Erythrocyte distribution width [Entitic volume] by Automated count 12 % 11-15 [facility] ([facility]) HEAD AND FACIAL NUMBNESS Platelet mean volume [Entitic volume] in Blood 9.1 fL 9.1-13.1 [facility] ([facility]) HEAD AND FACIAL NUMBNESS Neutrophils/100 leukocytes in Blood by Automated count 76.5 % 41- 77 [facility] ([facility]) HEAD AND FACIAL NUMBNESS Lymphocytes/100 leukocytes in Blood by Automated count 13.8 % 14- 46 [facility] ([facility]) HEAD AND FACIAL NUMBNESS Neutrophils [#/volume] in Blood by Automated count 6.4 U 1.7-7.6 [facility] ([facility]) HEAD AND FACIAL NUMBNESS Lymphocytes [#/volume] in Blood by Automated count 1.2 U 0.6-4.6 [facility] ([facility]) HEAD AND FACIAL NUMBNESS Monocytes/100 leukocytes in Blood by Automated count 8.0 % 4-12 [facility] ([facility]) HEAD AND FACIAL NUMBNESS Monocytes [#/volume] in Blood by Automated count 0.7 U 0.2-1.2 [facility] ([facility]) HEAD AND FACIAL NUMBNESS Eosinophils/100 leukocytes in Blood by Automated count 0.8 % 0-7 [facility] ([facility]) HEAD AND FACIAL NUMBNESS Eosinophils [#/volume] in Blood by Automated count 0.1 U 0.0-0.5 [facility] ([facility]) HEAD AND FACIAL NUMBNESS Basophils/100 leukocytes in Blood by Automated count 0.5 % 0.4-1 .3 [facility] ([facility]) HEAD AND FACIAL NUMBNESS Basophils [#/volume] in Blood by Automated count 0.0 U 0.0-0.2 [facility] ([facility]) HEAD AND FACIAL NUMBNESS Nucleated Red Blood Cell 0 % [facility] ([facility]) HEAD AND FACIAL NUMBNESS Laboratory test finding (navigational concept) 0 U [facility] ([facility]) HEAD AND FACIAL NUMBNESS Immature granulocytes [Presence] in Blood by Automated count 0.4 0-2 [facility] ([facility]) HEAD AND FACIAL NUMBNESS Immature granulocytes [#/volume] in Blood by Automated count 0.0 U 0-0.1 [facility] ([facility]) HEAD AND FACIAL NUMBNESS Manual Differential panel - Blood Laboratory test result [facility] ([facility] HEAD AND FACIAL NUMBNESS ID Date Data Source [id number] 08/13/2020 09:19:00 AM EDT [facility] ED Physician Documentation NAME: DAVION RENNER : 1955 AGE: 64 MR#: [id number] SERVICE DATE: 08/13/[address]: Rush Collins MD PRIMARY CARE DR: Rashaun Morales M.D. ROOM#: [facility] Chief Complaint: HEENT Stated Complaint: HEAD AND [...] rce(s) Supporting Document(s) ID Date Data Source [id number] 01/26/2020 07:43:00 AM EST [facility] ([facility]) Name Value Range Interpretation Code Description Data Negin rce(s) Supporting Document(s) Cholesterol [Mass/volume] in Serum or Plasma 158 mg/dL 131-200 [facility] ([facility]) Triglyceride [Mass/volume] in Serum or Plasma 165 mg/dL 30-150 [facility] ([facility]) Cholesterol in LDL [Mass/volume] in Serum or Plasma by calcu lation 83 CALC 50-159 [facility] ([facility]) Cholesterol in HDL [Mass/volume] in Serum or Plasma 42 mg/dL 35-60 [facility] ([facility]) ID Date Data Source [id number] 01/26/2020 07:43:00 AM EST [facility] ([facility]) Name Value Range Interpretation Code Description Data Negin rce(s) Supporting Document(s) Urea nitrogen [Mass/volume] in Serum or Plasma 13 mg/dL 7-18 [facility] ([facility]) Glucose [Mass/volume] in Serum or Plasma 110 mg/dL 74-99 [facility] ([facility]) 100-125 mg/dL PRE-DIABETES/FASTING >126 mg/dL DIABETES/FASTING Potassium [Moles/volume] in Serum or Plasma 4.2 meq/L 3.5-5.1 [facility] ([facility]) Sodium [Moles/volume] in Serum or Plasma 142 meq/L 136-145 [facility] ([facility]) Creatinine 1.0 mg/dL 0.6-1.3 [facility] ([facility]) Carbon dioxide, total [Moles/volume] in Serum or Plasma 33 meq/L 21 -32 [facility] ([facility]) Chloride [Moles/volume] in Serum or Plasma 104 meq/L 98-107 [facility] ([facility]) Calcium [Mass/volume] in Serum or Plasma 8.8 mg/dL 8.5-10.1 [facility] ([facility]) Total Bilirubin 0.8 mg/dL 0.2-1.0 [facility] ([facility]) Aspartate aminotransferase [Enzymatic activity/volume] in Serum or Plasma 18 U/L 15-37 [facility] ([facility] ) Alkaline phosphatase isoenzyme [Units/volume] in Serum or Pl asma 101 mg/dL 46-116 [facility] ([facility]) Alanine aminotransferase [Enzymatic activity/volume] in Seru m or Plasma 41 U/L 12-78 [facility] ([facility]) Albumin [Mass/volume] in Serum or Plasma 3.7 g/dL 3.4-5.0 [facility] ([facility]) Proteinase 3 Ab [Units/volume] in Serum 6.5 g/dL 6.4-8.2 [facility] ([facility]) A/G Ratio 1.32 CALC 1.00-1.90 [facility]) Glomerular filtration rate/1.73 sq M pre dicted among non-blacks [Volume Rate/Area] in Serum or Plasma by Creatinine-based formula (MDRD) Laboratory test result [facility] ([facility] ) Glomerular filtration rate/1.73 sq M pre dicted among blacks [Volume Rate/Area] in Serum or Plasma by Creatinine-based formula (MDRD) Laboratory test result [facility] ([facility]) <content>CHRONIC KIDNEY DISEASE STAGING PER NKF</content>
<content></content>
<content>STAGE I & II GFR >= 60 NORMAL TO MILDLY DECREASED</content>
<content>STAGE III GFR 30-59 MODERATELY DECREASED</content>
<content>STAGE IV GFR 15-29 SEVERELY DECREASED</content>
<content>STAGE V GFR <15 VERY LITTLE GFR LEFT</content>
<content>ESRD GFR <15 ON FABRICATION MACHINE OPERATOR</content>
<content></content> ID Date Data Source [id number] 01/26/2020 07:43:00 AM EST [facility] ([facility]) Name Value Range Interpretation Code Description Data Negin rce(s) Supporting Document(s) Creatine kinase [Enzymatic activity/volume] in Serum or Plasma 58 U /L 39-308 [facility] ([facility]) ID Date Data Source [id number] 11/25/2019 08:18:00 AM EDT [facility] ([facility]) Name Value Range Interpretation Code Description Data Negin rce(s) Supporting Document(s) Cholesterol [Mass/volume] in Serum or Plasma 255 mg/dL 131-200 [facility] ([facility]) Triglyceride [Mass/volume] in Serum or Plasma 189 mg/dL 30-150 [facility] ([facility]) Cholesterol in HDL [Mass/volume] in Serum or Plasma 35 mg/dL 35-60 [facility] ([facility]) Cholesterol in LDL [Mass/volume] in Serum or Plasma by calcu lation 182 CALC 50-159 [facility] ([facility]) ID Date Data Source [id number] 11/25/2019 08:18:00 AM EDT [facility] ([facility]) Name Value Range Interpretation Code Description Data Negin rce(s) Supporting Document(s) Urea nitrogen [Mass/volume] in Serum or Plasma 10 mg/dL 7-18 [facility] ([facility]) Glucose [Mass/volume] in Serum or Plasma 104 mg/dL 74-99 [facility] ([facility]) 100-125 mg/dL PRE-DIABETES/FASTING >126 mg/dL DIABETES/FASTING Sodium [Moles/volume] in Serum or Plasma 142 meq/L 136-145 [facility] ([facility]) Creatinine 1.0 mg/dL 0.6-1.3 [facility] Chloride [Moles/volume] in Serum or Plasma 104 meq/L 98-107 [facility] ([facility]) Potassium [Moles/volume] in Serum or Plasma 4.6 meq/L 3.5-5.1 [facility] ([facility]) Calcium [Mass/volume] in Serum or Plasma 9.0 mg/dL 8.5-10.1 [facility] ([facility]) Carbon dioxide, total [Moles/volume] in Serum or Plasma 31 meq/L 21 -32 [facility] ([facility]) Total Bilirubin 0.6 mg/dL 0.2-1.0 [facility] ([facility]) Alkaline phosphatase isoenzyme [Units/volume] in Serum or Pl asma 103 mg/dL 46-116 [facility] ([facility]) Aspartate aminotransferase [Enzymatic activity/volume] in Serum or Plasma 15 U/L 15-37 [facility] ([facility] ) Alanine aminotransferase [Enzymatic activity/volume] in Seru m or Plasma 30 U/L 12-78 [facility] ([facility]) Proteinase 3 Ab [Units/volume] in Serum 6.9 g/dL 6.4-8.2 [facility] ([facility]) Albumin [Mass/volume] in Serum or Plasma 3.7 g/dL 3.4-5.0 [facility] ([facility]) A/G Ratio 1.16 CALC 1.00-1.90 [facility] ([facility]) Glomerular filtration rate/1.73 sq M pre dicted among non-blacks [Volume Rate/Area] in Serum or Plasma by Creatinine-based formula (MDRD) Laboratory test result [facility] ([facility] ) Glomerular filtration rate/1.73 sq M pre dicted among blacks [Volume Rate/Area] in Serum or Plasma by Creatinine-based formula (MDRD) Laboratory test result [facility] ([facility]) <content>CHRONIC KIDNEY DISEASE STAGING PER NKF</content>
<content></content>
<content>STAGE I & II GFR >= 60 NORMAL TO MILDLY DECREASED</content>
<content>STAGE III GFR 30-59 MODERATELY DECREASED</content>
<content>STAGE IV GFR 15-29 SEVERELY DECREASED</content>
<content>STAGE V GFR <15 VERY LITTLE GFR LEFT</content>
<content>ESRD GFR <15 ON FABRICATION MACHINE OPERATOR</content>
<content></content> ID Date Data Source [id number] 11/25/2019 08:18:00 AM EDT [facility]) Name Value Range Interpretation Code Description Data Negin rce(s) Supporting Document(s) Prostate specific Ag [Mass/volume] in Serum or Plasma 1.41 ng/mL [facility] ([facility]) This assay was performed on the Siemens Dimension EXL using the B- Galactosidase/CPRG methodology and should not be compared interchangeably with other methods. The PSA should not be used alone as a screening test for the presence or absence of malignant disease. ID Date Data Source [id number] 11/25/2019 08:18:00 AM EDT [facility]) Name Value Range Interpretation Code Description Data Negin rce(s) Supporting Document(s) Erythrocytes [#/volume] in Blood by Automated count 5.42 x10*6/UL 4.2 0-6.30 [facility] ([facility]) Leukocytes [#/volume] in Blood by Automated count 7.7 x10*3/UL 4.1-10 .9 [facility] ([facility]) Hematocrit [Volume Fraction] of Blood by Automated count 49.4 % 3 7.0-51.0 [facility] ([facility]) Hemoglobin [Mass/volume] in Blood 17.2 g/dL 12.0-18.0 [facility] ([facility]) MCH 31.7 pg 26.0-32.0 [facility]) MCV 91.2 fL 80.0-97.0 [facility] Erythrocyte distribution width [Ratio] by Automated count 12.6 % 11.6-13.7 [facility] ([facility]) MCHC 34.8 g/dL 31.0-38.0 [facility] Platelets [#/volume] in Blood by Automated count 171 x10*3/UL 140-440 [facility] ([facility]) MPV 8.7 FL 7.8-11.0 [facility]) Lymph % 23.8 % 10.0-58.5 [facility] Mid % 7.3 % 1.7-9.3 [facility] Lymph # 1.8 x10*3/UL 0.6-4.1 [facility] ([facility]) Neut % 68.9 % 37.0-92.0 [facility] Mid # 0.6 x10*3/UL 0.1-0.6 [facility] ([facility]) Neut # 5.3 x10*3/UL 2.0-7.8 [facility] ([facility]) Procedure Social History Code Duration Value Status Description Data Source(s ) Alcohol intake 11/22/2020 12:00:00 AM EDT Ex-drinker (finding) comp leted Ex- drinker (finding) [facility] Tobacco use and exposure 11/22/2020 12:00:00 AM EDT Never used co mpleted Never used [facility] Smoking 11/22/2020 12:00:00 AM EDT Former smoker completed Former smoker [facility] Alcohol intake 11/09/2020 12:00:00 AM EDT Ex-drinker (finding) comp leted Ex- drinker (finding) [facility] Alcohol intake 10/21/2020 12:00:00 AM EDT Ex-drinker (finding) comp leted Ex- drinker (finding) [facility] Alcohol intake 10/14/2020 12:00:00 AM EDT Ex-drinker (finding) comp leted Ex- drinker (finding) [facility] 08/13/2020 09:20:00 AM EDT Current every day smoker co mpleted Current every day smoker [facility] Smoking 08/13/2020 09:20:00 AM EDT Current every day smoker co mpleted Current every day smoker [facility] 08/13/2020 09:20:00 AM EDT Current every day smoker co mpleted Current every day smoker [facility] 07/23/2020 12:00:00 AM EDT Smoker completed Smoker [facility] 07/23/2020 12:00:00 AM EDT Current smoker completed Curre nt smoker [facility] Vital Signs ID Date Data Source [id number] Name Value Range Interpretation Code Description Data Source(s) Diastolic blood pressure 60 mm[Hg] 60 mm[Hg] [facility]) Body weight 163.00 [lb_av] 163.00 [lb_av] [facility] ([facility]) Body mass index (BMI) [Ratio] 25.0 kg/m2 25.0 k g/m2 [facility]) Heart rate 62 /min 62 /min [facility]) Body height 67.75 [in_i] 67.75 [in_i] [facility] ([facility]) 5'7.75" 4 Systolic blood pressure 100 mm[Hg] 100 mm[Hg] [facility] ([facility]) Body weight 188.00 [lb_av] 188.00 [lb_av] [facility] ([facility]) Body mass index (BMI) [Ratio] 28.8 kg/m2 28.8 k g/m2 [facility] ([facility]) Heart rate 85 /min 85 /min [facility] Body height 67.75 [in_i] 67.75 [in_i] [facility] ([facility]) 5'7.75" 4 Systolic blood pressure 138 mm[Hg] 138 mm[Hg] [facility] Diastolic blood pressure 82 mm[Hg] 82 mm[Hg] [facility]) Body mass index (BMI) [Ratio] 29.3 kg/m2 29.3 k g/m2 [facility]) Systolic blood pressure 132 mm[Hg] 132 mm[Hg] [facility] Diastolic blood pressure 66 mm[Hg] 66 mm[Hg] [facility] ([facility]) Heart rate 90 /min 90 /min [facility] Body height 67.75 [in_i] 67.75 [in_i] [facility]) 5'7.75" 4 Body weight 191.00 [lb_av] 191.00 [lb_av] [facility] ([facility]) Oxygen saturation in Arterial blood by Pulse oximetry 99 % 99 % [facility] ([facility]) Systolic blood pressure 134 mm[Hg] 134 mm[Hg] [facility] ([facility]) Diastolic blood pressure 90 mm[Hg] 90 mm[Hg] [facility] Body height 67.75 [in_i] 67.75 [in_i] [facility] ([facility]) 5'7.75" 4 Body weight 199.00 [lb_av] 199.00 [lb_av] [facility] ([facility]) Body mass index (BMI) [Ratio] 30.5 kg/m2 30.5 k g/m2 [facility] ([facility]) Heart rate 72 /min 72 /min [facility] ([facility]) Systolic blood pressure 130 mm[Hg] 130 mm[Hg] [facility] ([facility]) Diastolic blood pressure 78 mm[Hg] 78 mm[Hg] [facility] Body height 67.75 [in_i] 67.75 [in_i] [facility] ([facility]) 5'7.75" 4 Body weight 203.00 [lb_av] 203.00 [lb_av] [facility] ([facility]) Body mass index (BMI) [Ratio] 31.1 kg/m2 31.1 k g/m2 [facility]) ID Date Data Source [id number] 10/07/2020 09:57:01 AM [facility] Name Value Range Interpretation Code Description Data Source(s) TRANSFER FROM [facility] ID Date Data Source [id number] [facility] Value Range Interpretation Code Description Data Source(s) WEIGHT RECORDED 169 lb 169 lb [facility] Body height Measured 68 in 68 in [facility] ID Date Data Source [id number] 09/13/2020 10:46:49 AM [facility] Name Value Range Interpretation Code Description Data Source(s) TRANSFER FROM [facility] ID Date Data Source [id number] 09/22/2020 11:27:18 AM [facility] Name Value Range Interpretation Code Description Data Source(s) WEIGHT RECORDED 175.05 lb 175.05 lb [facility] Body height Measured 68 in 68 in [facility] TRANSFER FROM [facility] Patient Treatment Plan of Care Planned Activity Planned Date Details Description Data Source (s) Erythromycin 0.005 MG/MG Ophthalmic Ointment 10/21/2020 12:00:00 AM [facility] Proparacaine hydrochloride 5 MG/ML Ophthalmic Solution 10/14/2020 01:30:00 PM [facility] Erythromycin 0.005 MG/MG Ophthalmic Ointment 10/07/2020 12:00:00 PM [facility] Epinephrine 0.01 MG/ML / Lidocaine Hydrochloride 10 MG /ML Injectable Solution 10/07/2020 10:30:00 AM [facility] fluorescein-benoxinate (FLURATE) 0.25-0.4 % ophthalmic solution 1 drop 10/03/2020 02:30:00 PM [facility] Phenylephrine Hydrochloride 25 MG/ML Ophthalmic Soluti on 10/03/2020 02:30:00 PM [facility] Tropicamide 10 MG/ML Ophthalmic Solution 10/03/2020 02:30:00 PM [facility] Ofloxacin 3 MG/ML Ophthalmic Solution 10/03/2020 12:00:00 AM [facility] Erythromycin 0.005 MG/MG Ophthalmic Ointment 10/02/2020 12:00:00 AM [facility] pantoprazole 40 MG Delayed Release Oral Tablet 09/15/2020 12:00:00 AM [facility] Diclofenac Sodium 0.01 MG/MG Topical Gel 09/15/2020 12:00:00 AM [facility]
[2021-01-05] MEDS ORDERED: cefTRIAXone SOD 2 GM in D5W MINI-BAG PLUS 50 ML IV ONE (12:15)
[2021-01-05] MEDS ORDERED: NS IV ONE (12:15)
[2021-01-05 12:41] LABS: BASO % 0.2 % (0.0-1.0); EOS # 0.2 10^3/uL (0.0-0.5); EOS % 3.2 % (0.0-3.0); HEMOGLOBIN 10.5 g/dl (13.5-17.5); LYMPH # 0.5 10^3/uL (1.5-5.0); LYMPH % 9.1 % (24.0-44.0); MEAN CORPUSCULAR HEMOGLOBIN 32.2 pg (27.0-33.0); MEAN CORPUSCULAR HGB CONC 32.8 g/dl (32.0-36.5); MEAN CORPUSCULAR VOLUME 98.2 fl (80.0-96.0); MONO # 0.4 10^3/uL (0.0-0.8); MONO % 7.9 % (2.0-8.0); NEUTROPHILS % 78.8 % (36.0-66.0); RED BLOOD COUNT 3.26 10^6/uL (4.30-6.10); WHITE BLOOD COUNT 5.1 10^3/uL (4.0-10.0)
--- NOTE | 2021-01-05 12:49 | REP ---
INDICATION: weakness COMPARISON: 12/05/2020 TECHNIQUE: Portable AP view of the chest FINDINGS: The mediastinum and cardiac silhouette are stable and within normal limits for portable technique. [id number] with tip in the SVC. The lung torres demonstrate stable chronic changes without acute consolidation, effusion, or pneumothorax. Skeletal structures are intact. IMPRESSION: No acute cardiopulmonary process appreciated. <Electronically signed by Donell Azul > 01/05/21 [id number]
[2021-01-05 12:54] LABS: INR 1.22; PROTHROMBIN TIME 15.8 SECONDS (12.7-14.5)
[2021-01-05 12:55] LABS: PARTIAL THROMBOPLASTIN TIME 46.2 SECONDS (25.9-37.0)
[2021-01-05 13:04] LABS: RSV AMPLIFICATION NEGATIVE (NEGATIVE)
[2021-01-05 13:07] LABS: ALBUMIN 2.1 GM/DL (3.2-5.2); ALT/SGPT 20 U/L (12-78); BILIRUBIN,DIRECT 0.3 MG/DL (0.0-0.2); BILIRUBIN,TOTAL 0.7 MG/DL (0.2-1.0); BLOOD UREA NITROGEN 12 MG/DL (7-18); CARBON DIOXIDE LEVEL 26 MEQ/L (21-32); CHLORIDE LEVEL 102 MEQ/L (98-107); CK-MB VALUE MASS 1.2 NG/ML (<3.6); CPK CREATINE PHOSPHOKINASE 32 U/L (39-308); CREATININE FOR GFR 0.56 MG/DL (0.70-1.30); GLOMERULAR FILTRATION RATE > 60.0 (>49); GLUCOSE, FASTING 96 MG/DL (70-100); LIPASE 22 U/L (73-393); MB/CK RELATIVE INDEX 3.75 (< OR =4); POTASSIUM SERUM 4.3 MEQ/L (3.5-5.1); SODIUM LEVEL 135 MEQ/L (136-145); TROPONIN I 0.03 NG/ML (< 0.10)
[2021-01-05 13:25] LABS: PLATELET COUNT, AUTOMATED 79 10^3/uL (150-450)
[2021-01-05] MEDS ORDERED: dexameTHASONE 4 MG/ML 1ML VIAL (J1100 PER 1MG) IV ONE (13:40)
[2021-01-05] MEDS ORDERED: LORA2CON5 TF (14:44)
[2021-01-05] MEDS ORDERED: MUCI1LIQ3 PO (14:44)
[2021-01-05] MEDS ORDERED: POTA20EL PO (14:44)
[2021-01-05] MEDS ORDERED: ONDA4TAB6 PO (14:44)
[2021-01-05] MEDS ORDERED: PROC10TA4 PO (14:44)
[2021-01-05] MEDS ORDERED: DEXA2TA PO (14:44)
[2021-01-05] MEDS ORDERED: OXYC1SOL3 PO (14:44)
[2021-01-05] MEDS ORDERED: LOPE-39 PO (14:44)
[2021-01-05] MEDS ORDERED: SERT-141 PO (14:44)
[2021-01-05] MEDS ORDERED: OLAN1TAB16 PO (14:44)
[2021-01-05] MEDS ORDERED: HOME MED LIST COMPLETE! XX SCH (14:45)
[2021-01-05] MEDS ORDERED: REMDESIVIR 200 MG in NS 250 ML IV ONE (15:35)
--- OUTSIDE RECORDS SUMMARY | 2021-01-05 15:59 | CCD ---
Author Author [facility] Organization [facility] Address Unknown Phone Unavailable Care Team Providers Care Activity Therapy Specialist Name Role Phone GAYAM, SINDHURI RESIDENT Unavailable [...] Unavailable Unavailable Jamie Morales MD Unavailable Unavailable North WoodstockJamie MD Unavailable Unavailable AndrewJamie MD Unavailable Unavailable AndrewJamie MD Unavailable Unavailable [place] Wood[place]Jamie MD Unavailable Unavailable AndrewJamie MD Unavailable Unavailable AndrewJamie MD Unavailable Unavailable [place] Wood[place]Jamie MD Unavailable Unavailable [place]Jamie MD Unavailable Unavailable [place]Jamie MD Unavailable Unavailable AndrewJamie MD Unavailable Unavailable AndrewJamie MD Unavailable Unavailable [place]Jamie MD Unavailable Unavailable [place] Wood[place]Jamie MD Unavailable Unavailable AndrewJamie MD Unavailable Unavailable AndrewJamie MD Unavailable Unavailable AndrewJamie MD Unavailable Unavailable [place]Jamie MD Unavailable Unavailable [place] Wood[place]Jamie MD Unavailable Unavailable [place]Jamie MD Unavailable Unavailable AndrewJamie MD Unavailable Unavailable AndrewJamie MD Unavailable Unavailable [place]Jamie MD Unavailable Unavailable [place]Jamie MD Unavailable Unavailable [place]Jamie MD Unavailable Unavailable [place]Jamie MD Unavailable Unavailable [place]Jamie MD Unavailable Unavailable [place]Jamie MD Unavailable Unavailable [place]Jamie MD Unavailable Unavailable [place]Jamie MD Unavailable Unavailable AndrewJamie MD Unavailable Unavailable [place]Jamie MD Unavailable Unavailable AndrewJamie MD Unavailable Unavailable AndrewJamie MD Unavailable Unavailable [place]Jamie MD Unavailable Unavailable AndrewJamie MD Unavailable Unavailable AndrewJamie MD Unavailable Unavailable [place]Jamie MD Unavailable Unavailable AndrewJamie MD Unavailable Unavailable [place]Jamie MD Unavailable Unavailable [place]Jamie MD Unavailable Unavailable AndrewJamie MD Unavailable Unavailable AndrewJamie MD Unavailable Unavailable [place]Jamie MD Unavailable Unavailable [place]Jamie MD Unavailable Unavailable [place]Jamie MD Unavailable Unavailable AndrewJamie MD Unavailable Unavailable AndrewJamie MD Unavailable Unavailable [place]Jamie MD Unavailable Unavailable AndrewJamie MD Unavailable Unavailable [place]Jamie MD Unavailable Unavailable [place]Jamie MD Unavailable Unavailable AndrewJamie MD Unavailable Unavailable AndrewJamie MD Unavailable Unavailable AndrewJamie MD Unavailable Unavailable AndrewJamie MD Unavailable Unavailable AndrewJamie MD Unavailable Unavailable [place], F Rodney MD Unavailable Unavailable North Wood[place]Jamie MD Unavailable Unavailable AndrewJamie MD Unavailable Unavailable [place] Wood[place]Jamie MD Unavailable Unavailable AndrewJamie MD Unavailable Unavailable [place]Jamie MD Unavailable Unavailable AndrewJamie MD Unavailable Unavailable AndrewJamie MD Unavailable Unavailable [place]Jamie MD Unavailable Unavailable [place]Jamie MD Unavailable Unavailable [place]Jamie MD Unavailable Unavailable AndrewJamie MD Unavailable Unavailable [place]Jamie MD Unavailable Unavailable AndrewJamie MD Unavailable Unavailable [place]Jamie MD Unavailable Unavailable [place]Jamie MD Unavailable Unavailable [place]Jamie MD Unavailable Unavailable AndrewJamie MD Unavailable Unavailable [place]Jamie MD Unavailable Unavailable [place]Jamie MD Unavailable Unavailable AndrewJamie MD Unavailable Unavailable North WoodstockJamie figueroa MD Unavailable Unavailable Connelly, Patrick Unavailable [...] Unavailable Unavailable TanyaMary Beth MD Unavailable Unavailable TaynaMary Beth peñaloza MD Unavailable Unavailable TanyaMary Beth [...] MIX, WAYNE DRAPER Unavailable Unavailable MIX, WAYNE DRAPRE Unavailable Unavailable MIX, WAYNE DRAPER Unavailable Unavailable [...] A Jonas MD Unavailable Unavailable Ordaz, A Jnoas MD Unavailable Unavailable Ordaz, A Jonas MD [...] is protected by Article 27-F of the [facility] Public Health law. If you continue you may have access to information: Regarding HIV / AIDS; Provided by facilities licensed or operated by the [facility] Office of Mental Health; or Provided by the [facility] Office for People With Developmental Disabilities. If such information is present, then the following [facility] mandated warning applies: This information has been [...] law may result in a fine or mcfp sentence or both. A general authorization for the release of medical or other information is NOT sufficient authorization for further disc losure. Allergies and Adverse Reactions Type Description Substance Reaction Status Data Source(s ) Propensity to adverse reactions NO KNOWN ALLERGIES NO KNOWN ALLERGIES [facility] Encounters Encounter Providers Location Date Indications Data Source(s ) Outpatient 01/20/2021 12:00:00 AM [facility] Outpatient Attender: Jonas Ordaz MD 01/05/2021 12:00:00 AM [facility] Outpatient Attender: WAYNE TANG MDReferrer: Jonas Ordaz MD [id number] 11/22/2020 12:00:00 AM EDT - 11/22/2020 01:05:06 PM EDT [facility] follow Outpatient Attender: WAYNE TANG MDReferrer: ROBERTO Asher MD [id number] 11/09/2020 12:00:00 AM EDT - 11/09/2020 04:54:22 PM EDT [facility] follow Outpatient Attender: WAYNE TANG MD 11/04/2020 12:00:00 AM T [facility] Outpatient Attender: WAYNE TANG MD 10/26/2020 12:00:00 AM T [facility] Outpatient Attender: Jonas rOdaz MD [id number] 10/25/2020 12:00 :00 AM EDT Secondary malignant neoplasm of brain [facility] Secondary malignant neoplasm of brain Outpatient Attender: Terrie Sainiender: TERRIE STALEY [id number] 10/21/2020 12:00:00 AM EDT - 10/21/2020 02:55:26 PM EDT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, left eye [facility]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, left eye Outpatient Attender: Patrick ConnellyAttender: PATRICK CONNELLY [id number] [facility] 10/14/2020 12:00:00 AM EDT - 10/14/2020 02:02:52 PM EDT [facility] Outpatient Attender: Patrick ConnellyAttender: PATRICK CONNELLY [id number] [facility] 10/07/2020 12:00:00 AM EDT - 10/07/2020 11:07:53 AM EDT [facility] Outpatient Attender: Rashaun Sosaall 0 10/05/2020 09:40:00 AM EDT [facility] ([facility] ) Outpatient Attender: Patrick ConnellyAttender: PATRICK CONNELLY A-XXH [facility] 10/03/2020 12:00:00 AM EDT - 10/03/2020 03:19:12 PM EDT [facility] Emergency Attender: RHINA CARDOZA MD [id number] 10/01 10:18:00 PM EDT - 10/02/2020 03:47:00 AM EDT cancer pt, vision issues, numbness on le ft side of face [facility] cancer pt, vision issues, numbness on le ft side of face Patient discharged. Outpatient [id number] [facility]: Jonas Ordaz MDAdmi tter: Jonas Ordaz MDReferrer: WAYNE TANG MD [id number] 09/21/2020 05:35:29 AM EDT - 09/21/2020 10:40:00 AM EDT Secondary malignant neoplasm of brain [facility] Secondary malignant neoplasm of brain Patient discharged. Outpatient 09[facility]ender: Kenji Mills MD 09/16/2020 12:00:00 AM T [facility] Inpatient Attender: ROBERTO Asher MDAdmi tter: PATRICIA GRACE MDReferrer: ROBERTO Asher MD 09/13/2020 12:00:00 AM EDT [facility] Inpatient Attender: GILDA BLAKE RES IDENTAttender: ROBERTO Asher MDAttender: PATRICIA GRACE MDAttender: Anupa Tanya MDAttender: RHINA CARDOZA MDAdmitter: PATRICIA GRACE MDReferrer: PATRICIA GRACE MDConsultant: LING BRAN MD [id number] 09/08/2020 12:00:00 AM EDT - 09/15/2020 06:31:00 PM EDT [facility] Patient discharged. Outpatient Attender: ADELIA Carty 0 08/18/2020 08:20:00 AM EDT [facility] ([facility] ) Emergency Attender: RUSH COLLINS MD 08/13 09:05:00 AM EDT - 08/13/2020 11:29:00 AM EDT HEAD AND FACIAL NUMBNESS [facility] l HEAD AND FACIAL NUMBNESS Patient discharged. Emergency Attender: Elmira Lynch MD 08/12 09:15:00 PM EDT - 08/12/2020 11:39:00 PM EDT FACE NUMBNESS [facility] l FACE NUMBNESS Patient discharged. Outpatient Attender: ADELIA Carty 0 08/01/2020 09:40:00 AM EDT [facility] ([facility] ) Outpatient Attender: ADELIA Carty 0 06/13/2020 03:20:00 PM EDT [facility] ([facility] ) Outpatient Attender: Rashaun Carty 0 11/25/2019 08:40:00 AM EDT [facility] ([facility] ) Immunizations Vaccine Date Status Description Data Source(s) 06/14/2020 12:00:00 AM EDT completed <td I D="[id number]">Pfizer SARS-CoV-2 Vaccination</td><td>06/14/2020, 05/24/2020</td><td></td> [facility] COVID-19 VACCINE Pfizer 06/14/2020 12:00:00 AM EDT completed [employer] Vaccine Series Complete: YESThis Data wa s Submitted to [facility] Via [employer]. 05/24/2020 12:00:00 AM EST completed <td I D="[id number]">Pfizer SARS-CoV-2 Vaccination</td><td>06/14/2020, 05/24/2020</td><td></td> [facility] COVID-19 VACCINE Pfizer 05/24/2020 12:00:00 AM EST completed [facility] Vaccine Series Complete: NOThis Data was Submitted to [facility] Via [employer]. INFLUENZA VIRUS VACCINE QUADRIVALENT 2019- (6 MOS [...] into the left eye Two Times Daily [facility] Proparacaine hydrochloride 5 MG/ML Ophth almic Solution proparacaine (ALCAINE) 0.5 % ophthalmic solution 1 drop proparacaine (ALCAINE) 0.5 % ophthalmic solution 1 drop 10/14/2020 01:30:00 PM EDT 1 [drp] Both Eyes a ctive [facility] 5 mg/5 mL 10/13/2020 12:00:00 AM EDT solution 140 TAKE 5ML BY MOUTH EVERY 6 HOURS NEEDED FOR PAIN LEVEL 5-10 MAXIMUM DAILY DOSE = 20ML TAKE 5ML BY MOUTH EVERY 6 HOURS NEEDED FOR PAIN LEVEL 5-10 MAXIMUM DAILY DOSE = 20ML SOLD: 10/16/2020 [facility] Ondansetron 4 MG Disintegrating Oral Tablet ONDANSETRON 10/12/2020 12:00:00 AM EDT tablet,disintegrating 120 DISSOLVE O NE TABLET ON TONGUE EVERY 6 HOURS NEEDED FOR NAUSEA MAXIMUM DAILY DOSE = FOUR TABLETS DISSOLVE ONE TABLET ON TONGUE EVERY 6 HOURS NEEDED FOR NAUSEA MAXIMUM DAILY DOSE = FOUR TABLETS SOLD: 10/16/2020 [facility] 12 mcg/hr 10/11/2020 12:00:00 AM EDT patch 72 hour 5 APPLY 1 PATCH EVERY 3 DAYS MAXIMUM DAILY DOSE = 1 APPLY 1 PATCH EVERY 3 DAYS MAXIMUM DAILY DOSE = 1 SOLD: 10/11/2020 [facility] Erythromycin 0.005 MG/MG Ophthalmic Oint ment erythromycin (ROMYCIN) ophthalmic ointment 1 cm erythromycin (ROMYCIN) ophthalmic ointment 1 cm 2020 12:00:00 PM EDT 1 cm Left Eye active [facility] Epinephrine 0.01 MG/ML / Lidocaine [place] chloride 10 MG/ML Injectable Solution lidocaine-EPINEPHrine 1 %-1:805882 injection 1 mL lidocaine-EPINEPHrine 1 %- 1:881348 injection 1 mL 10/07/2020 10:30:00 AM EDT 1 mL Infiltrat ion active [facility] No Active Medications 10/05/2020 12:00:00 AM EDT active [facility] ([facility]) 250 mg/5 mL 10/04/2020 12:00:00 AM [...] MAXIMUM DAILY DOSE = 10ML SOLD: 12/09/2020 [facility] Phenylephrine Hydrochloride 25 MG/ML Oph thalmic Solution phenylephrine (MYDFRIN) 2.5 % ophthalmic solution 1 drop phenylephrine (MYDFRIN) 2.5 % ophthalmic solution 1 drop 10/03/2020 02:30:00 PM EDT 1 [drp] Both Eyes completed 1 drop, Both Eyes, Once, On Sat10/03/20 at 1430, For 1 dose [facility] Medication administered onsite fluorescein-benoxinate (FLURATE) 0.25-0.4 % ophthalmic solution 1 drop [id number] 10/03/2020 02:30:00 PM EDT 1 [drp] Both Eyes c ompleted 1 drop, Both Eyes, Once, On Sat10/03/20 at 1430, For 1 dose [facility] Medication administered onsite Tropicamide 10 MG/ML Ophthalmic Solution tropicamide (MYDRIACYL) 1 % ophthalmic solution 1 drop tropicamide (MYDRIACYL) 1 % ophthalmic solution 1 drop 10/03/2020 02:30:00 PM EDT 1 [drp] Both Eyes completed 1 drop, Both Eyes, Once, On Sat10/03/20 at 1430, For 1 dose [facility] Medication administered onsite Ofloxacin 3 MG/ML Ophthalmic Solution Of loxacin 0.3 % Ophthalmic Solution (OCUFLOX) Ofloxacin 0.3 % Ophthalmic Solution (OCUFLOX) 10/04/19 12:00:00 AM EDT 1 [drp] Left Eye active Place 1 drop into the left eye Four times daily [facility] 0.3 % 10/03/2020 12:00:00 AM [...] On 10/02/20 at 0315, For 1 dose [facility] Medication administered onsite Tetracaine hydrochloride 5 MG/ML Ophthal marissa Solution tetracaine (PONTOCAINE) 0.5 % ophthalmic solution 1 drop tetracaine (PONTOCAINE) 0.5 % ophthalmic solution 1 drop 10/02/2020 01:30:00 AM EDT 1 [drp] Both Eyes complet ed 1 drop, Both Eyes, Once, On 10/02/20 at 0130, For 1 dose [facility] Medication administered onsite fluorescein ophthalmic strip 1 mg [id number] 10/02/2020 01:30:00 AM E DT 1 {strip} Both Eyes completed 1 mg (1 strip) , Both Eyes, Once, On 10/02/20 at 0130, For 1 dose [facility] Medication administered onsite Erythromycin 0.005 MG/MG Ophthalmic Oint ment Erythromycin 5 MG/GM Ophthalmic Ointment (ROMYCIN) Erythromycin 5 MG/GM Ophthalmic Ointment (ROMYCIN) 01/2021 12:00:00 AM EDT 0.5 [in_us] Left Eye active Place 0.5 inches into the left eye Three times daily for 10 days [facility] Ondansetron 4 MG Disintegrating Oral Tablet ONDANSETRON [...] 09/19/2020 12:00:00 AM EDT ORAL completed [facility] ([facility]) Ondansetron 4 MG Disintegrating Oral Tablet Ondansetron 09/19/2020 12:00:00 AM EDT completed [facility] ([facility]) Acetaminophen 32 MG/ML Oral Suspension [Tylenol] Tylenol Inf ants 09/19/2020 12:00:00 AM EDT ORAL completed [facility] ([facility]) 500 mg/15 mL 09/19/2020 12:00:00 AM [...] topica lly Four times daily as needed [facility] pantoprazole 40 MG Delayed Release Oral Tablet Pantoprazole Sodium 40 MG Oral Tablet Delayed Release (PROTONIX) Pantoprazole Sodium 40 MG Oral Tablet De layed Release (PROTONIX) 09/15/2020 12:00:00 AM EDT 40 mg Oral active Take 1 tablet by mouth Two Times Daily [facility] 100,000 unit/mL 08/24/2020 12:00:00 AM EDT suspension 473 USE 5ML BY MOUTH TO SWISH AND SWALLOW FIVE TIMES A DAY FOR 10 DAYS USE 5ML BY MOUTH TO SWISH AND SWALLOW FIVE TIMES A DAY FOR 10 DAYS SOLD: 08/24/2020 [facility] Nystatin [id number] UNT/ML Oral Suspension Nystatin 08/23/2020 12:00:00 AM [...] 08/13/2020 11:15:13 AM EDT 20 MG active [facility] famciclovir 500 MG Oral Tablet Famciclovir Famciclovir 08/13/2020 11:14:58 AM EDT 500 MG active [facility] Omeprazole 20 MG Delayed Release Oral Capsule Omeprazole 08/13/2020 09:28:37 AM EDT 20 MG active [facility] Acetaminophen (Tylenol Extra Strength) 500 mg Capsule 08/13/2020 09:28:37 AM EDT 1000 MG active [facility] atorvastatin 20 MG Oral Tablet Atorvastatin Atorvastatin 08/13/2020 09:28:37 AM EDT 20 MG active [facility] 20 mg 08/13/2020 12:00:00 AM EDT tablet [...] 2:00:00 AM EDT ORAL active [facility] ( [facility]) No Active Medications 11/25/2019 12:00:00 AM EDT completed [facility] ([facility]) Insurance Providers Payer name Policy type / Coverage type Policy ID Covered constitution party ID Covered constitution party's relationship to [place] Plan Information UMR U [id number] Self [id number] MEDICARE [id number] SP [id number] MEDICARE A [id number] Self [id number] UMR [facility] [id number] SP [id number] POMCO [id number] MEDICARE [id number] SP [id number] SELF PAY UNAVAILABLE SP UNAVAILA BLE UMR [facility] [id number] SP [id number] MEDICARE [id number] SP [id number] Problems, Conditions, and Diagnoses Code Display Name Description Problem Type Effective Dates Data Source(s) follow follow Diagnosis 11/22/2020 08:11:39 AM ED T [facility] 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, left eye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, left eye Diagnosis 10/21/2020 02:20:09 PM EDT [facility] cancer pt, vision issues, numbness on le ft side of face cancer pt, vision issues, numbness on left side of face Diagnosis 10/01/2020 10:18:00 PM EDT [facility] C79.31 Secondary malignant neoplasm of brain Se condary malignant neoplasm of brain Diagnosis 09/21/2020 06:09:37 AM EDT [facility] Surgeries/Procedures Procedure Description Date Indications Data Source(s) RADIOLOGY REPORT <td>RADIOLOGY REPORT</td><td ></td><td>11/15/2020 1:44 PM EDT</td><td></td><td></td> 11/15/2020 01:44:53 PM EDT [facility] Diabetic Retinal Eye Exam 10/21/2020 12:00:00 AM EDT [facility] ([facility]) Diabetic Retinal Eye Exam 10/07/2020 12:00:00 AM EDT [facility] ([facility]) OFFICE OUTPATIENT VISIT 25 MINUTES 10/05/2020 12:00:00 AM EDT [facility] ([facility]) Diabetic Retinal Eye Exam 10/03/2020 12:00:00 AM EDT [facility] ([facility]) OFFICE OUTPATIENT VISIT 15 MINUTES 08/18/2020 12:00:00 AM EDT [facility] ([facility]) CT C-Spine without contrast 08/13/2020 10:06:00 AM EDT [facility] CT Head without contrast 08/13/2020 10:06:00 AM EDT [facility] OFFICE OUTPATIENT VISIT 15 MINUTES 08/01/2020 12:00:00 AM EDT [facility] ([facility]) OFFICE OUTPATIENT VISIT 10 MINUTES 06/13/2020 12:00:00 AM EDT [facility] ([facility]) ECG ROUTINE ECG W/LEAST 12 LDS W/I&R 11/25/2019 12:00: 00 AM EDT [facility] ([facility]) Results ID Date Data Source [id number] 12/05/2020 02:58:00 PM EDT [facility] ([facility]) Name Value Range Interpretation Code Description Data Negin rce(s) Supporting Document(s) Influenza A Amplification Laboratory test result [facility] ([facility]) Negative results do not preclude influen za or RSV virus infection and should not be used as the sole basis for treatment or other patient management decisions. Influenza B Amplification Laboratory test result [facility] ([facility]) Negative results do not preclude influen za or RSV virus infection and should not be used as the sole basis for treatment or other patient management decisions. RSV Amplification Laboratory test result [facility] ([facility]) Negative results do not preclude influen za or RSV virus infection and should not be used as the sole basis for treatment or other patient management decisions. Laboratory test finding (navigational concept) Laboratory test result [facility] ([facility]) A false negative result may occur [...] pathogens. DISCLAIMER: Testing was performed using the [employer] SARS-CoV-2 test. This test was developed and its performance characteristics determined by [employer]. This test has not been FDA cleared [...] or revoked sooner. ID Date Data Source [id number] 12/05/2020 02:58:00 PM EDT [facility] Name Value Range Interpretation Code Description Data Negin rce(s) Supporting Document(s) SARS coronavirus 2 RNA [Presence] in Res piratory specimen by GEORGE with probe detection NEGATIVE [facility] This lab was ordered by [facility] a nd reported by [facility]. ID Date Data Source [id number] 12/05/2020 12:52:00 PM EDT [facility] ([facility]) Name Value Range Interpretation Code Description Data Negin rce(s) Supporting Document(s) Lactate [Mass/volume] in Serum or Plasma 1.1 mmol/L 0.4-2.0 [facility] ([facility]) Y/N query for Sepsis Lactate Rule: Y ID Date Data Source [id number] 12/05/2020 12:52:00 PM EDT [facility] ([facility]) Name Value Range Interpretation Code Description Data Negin rce(s) Supporting Document(s) CPK Creatine Phosphokinase 28 U/L 39-308 [facility] ([facility]) CK-MB Value Mass Laboratory test result [facility] MB/CK Relative Index 3.57 [facility] ([facility]) <content>DIAGNOSIS CRITERIA</content>
<content>MMB ng/ml Relative Index (RI)</content>
<content>NON-AMI < or = 5 N/A</content>
<content>TOMLIN ZONE > 5 < or = 4</content>
<content>AMI > 5 > 4</content>
<content></content> Troponin I Laboratory test result [facility] ([facility]) <content>Troponin I Reference Interval f or Siemens [place] LOCI:</content>
<content></content>
<content>99th Percentile= 0.00-0.045 ng/ml</content>
<content></content>
<content>Risk Stratification:</content>
<content><= 0.10 ng/ml Decreased Risk for Adverse Clinical</content>
<content>Events.</content>
<content>0.10-1.50 ng/ml Increased Risk for Adverse Clinical</content>
<content>Events. Evaluation of additional</content>
<content>criterion and/or repeat testing in 2-6</content>
<content>hours is suggested to rule out myocardial</content>
<content>damage.</content>
<content>>= 1.50 ng/ml Indicative of Myocardial Injury.</content>
<content></content> ID Date Data Source [id number] 12/05/2020 12:52:00 PM EDT [facility] ([facility]) Name Value Range Interpretation Code Description Data Negin rce(s) Supporting Document(s) Ast/Sgot 24 U/L 7-37 [facility] ([facility]) Alt/SGPT 24 U/L 12-78 [facility] ([facility]) Alkaline Phosphatase 142 U/L 45-117 [facility] ([facility]) Bilirubin,Total 0.8 mg/dL 0.2-1.0 [facility] ([facility]) Bilirubin,Direct 0.3 mg/dL 0.0-0.2 [facility] ([facility]) Total Protein 5.9 GM/DL 6.4-8.2 [facility] ([facility]) Albumin 2.8 GM/DL 3.2-5.2 [facility] ([facility]) Albumin/Globulin Ratio 0.9 [facility] ([facility]) ID Date Data Source [id number] 12/05/2020 12:52:00 PM EDT [facility] ([facility]) Name Value Range Interpretation Code Description Data Negin rce(s) Supporting Document(s) Glucose, Fasting 91 mg/dL 70-100 [facility] ([facility]) Creatinine For GFR 0.60 mg/dL 0.70-1.30 [facility] ([facility]) Blood Urea Nitrogen 11 mg/dL 7-18 [facility] ([facility]) Glomerular Filtration Rate Laboratory test result [facility] ([facility]) <content>Units are mL/min/1.73 m2</content>
<content></content>
<content>Chronic Kidney Disease Staging per NKF:</content>
<content></content>
<content>Stage I & II GFR >=60 Normal to Mildly Decreased</content>
<content>Stage III GFR 30- 59 Moderately Decreased</content>
<content>Stage IV GFR 15-29 Severely Decreased</content>
<content>Stage V GFR <15 Very Little GFR Left</content>
<content>ESRD GFR <15 on CEMENT LOADER</content>
<content></content> Sodium Level 130 meq/L 136-145 [facility] ([facility]) Potassium Serum 4.1 meq/L 3.5-5.1 [facility] ([facility]) Carbon Dioxide Level 26 meq/L 21-32 [facility] ([facility]) Chloride Level 95 meq/L 98-107 [facility] ([facility]) Calcium Level 8.7 mg/dL 8.8-10.2 [facility] ([facility]) Anion Gap 9 meq/L 8-16 [facility] ID Date Data Source [id number] 12/05/2020 12:52:00 PM EDT [facility] ([facility] [facility]) Name Value Range Interpretation Code Description Data Negin rce(s) Supporting Document(s) Magnesium [Moles/volume] in Serum or Plasma 2.1 mg/dL 1.8-2.4 [facility] ([facility]) Thyroxine (T4) free [Mass/volume] in Serum or Plasma 1.28 ng/dL 0.76- 1.46 [facility] ([facility]) Thyrotropin [Units/volume] in Serum or Plasma by Detec tion limit <= 0.05 mIU/L 0.654 uIU/ML 0.358-3.740 [facility] ([facility] ) ID Date Data Source [id number] 12/05/2020 12:52:00 PM EDT [facility] ([facility]) Name Value Range Interpretation Code Description Data Negin rce(s) Supporting Document(s) Red Blood Count 3.52 10 4.30-6.10 [facility] ([facility]) White Blood Count 7.1 10 4.0-10.0 [facility] ([facility]) Hemoglobin 11.6 g/dL 13.5-17.5 [facility] Hematocrit 33.6 % 42.0-52.0 [facility] ([place]) Mean Corpuscular Volume 95.5 fl 80.0-96.0 [facility] ([facility]) Mean Corpuscular Hemoglobin 33.0 pg 27.0-33.0 [facility] ([facility]) Red Cell Distribution Width 15.3 % 11.5-14.5 [facility] ([facility]) Mean Corpuscular HGB Conc 34.5 g/dL 32.0-36.5 [facility] ([facility]) Platelet Count, Automated 146 10 150-450 [facility] ([facility]) Neutrophils % 72.2 % 36.0-66.0 [facility] ([facility]) Lymph % 11.0 % 24.0-44.0 [facility]) [place] % 13.1 % 2.0-8.0 [facility]) Eos % 1.4 % 0.0-3.0 [facility]) Immature Granulocyte % 2.0 % 0-3.0 [facility] ([facility]) Baso % 0.3 % 0.0-1.0 [facility]) Neutrophils # 5.2 10 1.5-8.5 [facility] ([place] [facility]) Nucleated Red Blood Cell % 0.0 % 0-0 [facility] ([facility]) [place] # 0.9 10 0.0-0.8 [facility] ([facility]) Lymph # 0.8 10 1.5-5.0 [facility]) Eos # 0.1 10 0.0-0.5 [facility]) Baso # 0.0 10 0.0-0.2 [facility] ([facility]) ID Date Data Source [id number] 11/23/2020 10:45:39 AM EDT [facility] Name Value Range Interpretation Code Description Data Negin rce(s) Supporting Document(s) Progress Note [facility] [id number]/[id number]N5xY2yDQG1XBoXEkEeRtBgQMHz lbm [file] [id number]tiLEJBPj0B ID Date Data Source [id number] 11/22/2020 10:20:00 AM EDT [facility] Name Value Range Interpretation Code Description Data Negin rce(s) Supporting Document(s) Thyrotropin [Units/volume] in Serum or Plasma by Detec tion limit <= 0.05 mIU/L 0.432 uIU/ML 0.358-3.740 [facility] Carcinoembryonic Ag [Mass/volume] in Serum or Plasma 12.2 ng/mL [facility] ([facility]) THE CEA ASSAY IS PERFORMED ON THE Up [employer] NetR BY CHEMILUMINESCENCE AND SHOULD NOT BE COMPARED INTERCHANGEABLY WITH OTHER METHODS. IT SHOULD NOT BE USED ALONE A SCREENING TEST OR DIAGNOSIS FOR THE PRESENCE OR ABSENCE OF MALIGNANT DISEASE. PREDICTIONS OF DISEASE RECURRENCE SHOULD NOT BE BASED SOLELY ON VALUES OBTAINED FROM SERIAL PATIENT SERUM VALUES. Thyroxine (T4) free [Mass/volume] in Serum or Plasma 1.59 ng/dL 0.76- 1.46 [facility] ([facility]) ID Date Data Source [id number] 11/22/2020 10:20:00 AM EDT [facility] ([facility] Name Value Range Interpretation Code Description Data Negin rce(s) Supporting Document(s) Glucose, Fasting 104 mg/dL 70-100 [facility] ([facility]) Blood Urea Nitrogen 8 mg/dL 7-18 [facility] Creatinine For GFR 0.67 mg/dL 0.70-1.30 [facility] ([facility] Glomerular Filtration Rate Laboratory test result [facility] ([facility]) <content>Units are mL/min/1.73 m2</content>
<content></content>
<content>Chronic Kidney Disease Staging per NKF:</content>
<content></content>
<content>Stage I & II GFR >=60 Normal to Mildly Decreased</content>
<content>Stage III GFR 30- 59 Moderately Decreased</content>
<content>Stage IV GFR 15-29 Severely Decreased</content>
<content>Stage V GFR <15 Very Little GFR Left</content>
<content>ESRD GFR <15 on CEMENT LOADER</content>
<content></content> Sodium Level 131 meq/L 136-145 [facility] ([facility]) Potassium Serum 4.1 meq/L 3.5-5.1 [facility] ([facility]) Chloride Level 98 meq/L 98-107 [facility] ([facility]) Carbon Dioxide Level 27 meq/L 21-32 [facility] ([facility]) Anion Gap 6 meq/L 8-16 [facility] [facility]) Ast/Sgot 25 U/L 7-37 [facility] ([place] [facility]) Calcium Level 9.0 mg/dL 8.8-10.2 [facility] ([facility]) Alt/SGPT 22 U/L 12-78 [facility] ([place] [facility]) Alkaline Phosphatase 168 U/L 45-117 [facility] ([facility]) Bilirubin,Total 0.7 mg/dL 0.2-1.0 [facility] ([facility]) Albumin 2.8 GM/DL 3.2-5.2 [facility] ([place] [facility]) Total Protein 6.9 GM/DL 6.4-8.2 [facility] ([facility]) Albumin/Globulin Ratio 0.7 [facility] ([facility]) ID Date Data Source [id number] 11/22/2020 10:20:00 AM EDT [facility] ([facility]) Name Value Range Interpretation Code Description Data Negin rce(s) Supporting Document(s) White Blood Count 8.5 10 4.0-10.0 [facility] ([facility]) Hemoglobin 12.4 g/dL 13.5-17.5 [facility] ([facility]) Red Blood Count 3.84 10 4.30-6.10 [facility] ([facility]) Hematocrit 36.6 % 42.0-52.0 [facility] Mean Corpuscular Volume 95.3 fl 80.0-96.0 [facility] ([facility]) Mean Corpuscular HGB Conc 33.9 g/dL 32.0-36.5 [facility] ([facility]) Red Cell Distribution Width 14.6 % 11.5-14.5 [facility] ([facility]) Mean Corpuscular Hemoglobin 32.3 pg 27.0-33.0 [facility] ([facility]) Neutrophils % 68.8 % 36.0-66.0 [facility] ([facility]) Platelet Count, Automated 178 10 150-450 [facility] ([facility]) Eos % 0.8 % 0.0-3.0 [facility]) Lymph % 10.5 % 24.0-44.0 [facility]) [place] % 14.7 % 2.0-8.0 [facility]) Immature Granulocyte % 4.5 % 0-3.0 [facility] ([facility]) Baso % 0.7 % 0.0-1.0 [facility]) Neutrophils # 5.8 10 1.5-8.5 [facility] ([facility]) Nucleated Red Blood Cell % 0.0 % 0-0 [facility] ([facility]) Lymph # 0.9 10 1.5-5.0 [facility] [facility]) [place] # 1.3 10 0.0-0.8 [facility]) Eos # 0.1 10 0.0-0.5 [facility]) Baso # 0.1 10 0.0-0.2 [facility]) ID Date Data Source [id number] 11/15/2020 01:19:00 PM EDT [facility] ([facility]) Name Value Range Interpretation Code Description Data Negin rce(s) Supporting Document(s) Glucose, Fasting 101 mg/dL 70-100 [facility] ([facility]) Blood Urea Nitrogen 12 mg/dL 7-18 [facility] ([facility]) Creatinine For GFR 0.56 mg/dL 0.70-1.30 [facility] ([facility]) Glomerular Filtration Rate Laboratory test result [facility] ([facility]) <content>Units are mL/min/1.73 m2</content>
<content></content>
<content>Chronic Kidney Disease Staging per NKF:</content>
<content></content>
<content>Stage I & II GFR >=60 Normal to Mildly Decreased</content>
<content>Stage III GFR 30- 59 Moderately Decreased</content>
<content>Stage IV GFR 15-29 Severely Decreased</content>
<content>Stage V GFR <15 Very Little GFR Left</content>
<content>ESRD GFR <15 on CEMENT LOADER</content>
<content></content> Sodium Level 129 meq/L 136-145 [facility] ([facility]) Potassium Serum 4.2 meq/L 3.5-5.1 [facility] ([facility]) Carbon Dioxide Level 29 meq/L 21-32 [facility] ([facility]) Chloride Level 96 meq/L 98-107 [facility] ([facility] Anion Gap 4 meq/L 8-16 [facility] ([facility]) Calcium Level 8.6 mg/dL 8.8-10.2 [facility] ([facility]) Ast/Sgot 25 U/L 7-37 [facility] ([facility]) Bilirubin,Total 0.7 mg/dL 0.2-1.0 [facility] ([facility]) Alkaline Phosphatase 129 U/L 45-117 [facility] ([facility]) Alt/SGPT 23 U/L 12-78 [facility] ([facility]) Total Protein 6.3 GM/DL 6.4-8.2 [facility] ([facility]) Albumin 2.6 GM/DL 3.2-5.2 [facility] ([facility]) Albumin/Globulin Ratio 0.7 [facility] ([facility]) ID Date Data Source [id number] 11/15/2020 01:19:00 PM EDT [facility] ([facility]) Name Value Range Interpretation Code Description Data Negin rce(s) Supporting Document(s) White Blood Count 2.2 10 4.0-10.0 [facility] ([facility]) Red Blood Count 3.62 10 4.30-6.10 [facility] ([facility]) Hemoglobin 11.8 g/dL 13.5-17.5 [facility] ([facility]) Hematocrit 33.7 % 42.0-52.0 [facility] ([facility]) Mean Corpuscular Hemoglobin 32.6 pg 27.0-33.0 [facility] ([facility]) Mean Corpuscular HGB Conc 35.0 g/dL 32.0-36.5 [facility] ([facility]) Mean Corpuscular Volume 93.1 fl 80.0-96.0 [facility] ([facility]) Red Cell Distribution Width 13.6 % 11.5-14.5 [facility] ([facility]) Platelet Count, Automated 127 10 150-450 [facility] ([facility]) [place] % 36.5 % 2.0-8.0 [facility] ([place] [facility]) Lymph % 16.4 % 24.0-44.0 [facility] ([place] [facility]) Neutrophils % 43.4 % 36.0-66.0 [facility] ([facility]) Eos % 2.3 % 0.0-3.0 [facility] ([place] [facility]) Baso % 0.9 % 0.0-1.0 [facility] ([place] [facility]) Nucleated Red Blood Cell % 0.0 % 0-0 [facility] ([facility]) Immature Granulocyte % 0.5 % 0-3.0 [facility] ([facility]) Neutrophils # 1.0 10 1.5-8.5 [facility] ([facility]) Lymph # 0.4 10 1.5-5.0 [facility] [facility]) [place] # 0.8 10 0.0-0.8 [facility] ([place] [facility]) Eos # 0.1 10 0.0-0.5 [facility] [facility]) Baso # 0.0 10 0.0-0.2 [facility] [facility]) ID Date Data Source [id number] 11/10/2020 01:31:00 PM EDT [facility] ([facility]) Name Value Range Interpretation Code Description Data Negin rce(s) Supporting Document(s) Platelets reticulated/100 platelets in Blood by Automated count 3.8 % 0.0-10.91 [facility] ([facility]) ID Date Data Source [id number] 11/10/2020 01:31:00 PM EDT [facility] ([facility]) Name Value Range Interpretation Code Description Data Negin rce(s) Supporting Document(s) White Blood Count 3.6 10 4.0-10.0 [facility] ([facility]) Hemoglobin 12.3 g/dL 13.5-17.5 [facility] ([facility]) Red Blood Count 3.77 10 4.30-6.10 [facility] ([facility]) Hematocrit 35.0 % 42.0-52.0 [facility] ([facility]) Mean Corpuscular Volume 92.8 fl 80.0-96.0 [facility] ([facility]) Mean Corpuscular HGB Conc 35.1 g/dL 32.0-36.5 [facility] ([facility]) Mean Corpuscular Hemoglobin 32.6 pg 27.0-33.0 [facility] ([facility]) Red Cell Distribution Width 12.7 % 11.5-14.5 [facility] ([facility]) Platelet Count, Automated 85 10 150-450 [facility] ([facility]) Lymph % 4.7 % 24.0-44.0 [facility]) Neutrophils % 75.0 % 36.0-66.0 [facility] ([facility]) [place] % 16.1 % 2.0-8.0 [facility] ([place] [facility]) Eos % 2.8 % 0.0-3.0 [facility] ([place] [facility] Baso % 0.6 % 0.0-1.0 [facility] ([place] [facility]) Immature Granulocyte % 0.8 % 0-3.0 [facility] ([facility]) Neutrophils # 2.7 10 1.5-8.5 [facility] ([facility]) Nucleated Red Blood Cell % 0.0 % 0-0 [facility] ([facility]) Lymph # 0.2 10 1.5-5.0 [facility] ([place] [facility]) [place] # 0.6 10 0.0-0.8 [facility] ([place] [facility]) Eos # 0.1 10 0.0-0.5 [facility] ([place] [facility]) Baso # 0.0 10 0.0-0.2 [facility] ([place] [facility]) ID Date Data Source [id number] 11/10/2020 01:31:00 PM EDT [facility] ([facility]) Name Value Range Interpretation Code Description Data Negin rce(s) Supporting Document(s) Glucose, Fasting 107 mg/dL 70-100 [facility] ([facility]) Creatinine For GFR 0.54 mg/dL 0.70-1.30 [facility] ([facility]) Blood Urea Nitrogen 11 mg/dL 7-18 [facility] ([facility]) Glomerular Filtration Rate Laboratory test result [facility] ([facility]) <content>Units are mL/min/1.73 m2</content>
<content></content>
<content>Chronic Kidney Disease Staging per NKF:</content>
<content></content>
<content>Stage I & II GFR >=60 Normal to Mildly Decreased</content>
<content>Stage III GFR 30- 59 Moderately Decreased</content>
<content>Stage IV GFR 15-29 Severely Decreased</content>
<content>Stage V GFR <15 Very Little GFR Left</content>
<content>ESRD GFR <15 on CEMENT LOADER</content>
<content></content> Sodium Level 129 meq/L 136-145 [facility] ([facility]) Potassium Serum 3.8 meq/L 3.5-5.1 [facility] ([place] [facility]) Chloride Level 97 meq/L 98-107 [facility] ([facility]) Carbon Dioxide Level 25 meq/L 21-32 [facility] Anion Gap 7 meq/L 8-16 [facility] ([place] [facility]) Alt/SGPT 22 U/L 12-78 [facility]) Ast/Sgot 17 U/L 7-37 [facility] [facility]) Calcium Level 8.3 mg/dL 8.8-10.2 [facility] ([facility]) Bilirubin,Total 0.6 mg/dL 0.2-1.0 [facility] ([place] [facility]) Alkaline Phosphatase 116 U/L 45-117 [facility] Albumin 3.0 GM/DL 3.2-5.2 [facility] ([place] [facility]) Total Protein 6.4 GM/DL 6.4-8.2 [facility] ([facility]) Albumin/Globulin Ratio 0.9 [facility] ([facility]) ID Date Data Source [id number] 11/09/2020 10:18:04 PM EDT [facility] Name Value Range Interpretation Code Description Data Negin rce(s) Supporting Document(s) Progress Note [facility] BOQRTr4gUyZAMbAg38/OYWtkQSXam1TgOBqxRXa8NLnfMGSzU6LiVSH1pA2eQVB7IFaMBqFyPlHcBHF2 lbm [file] mri technologist+GB2XsbeOBR6ikFX8ntUOiAJBqY3qw3WV69r7hmC339YHBXKqhvlXPe6peMQ5jSCjztb1YqWpK1pQP [file] QUINTEN+KCyqIUwuyKo7rEZkFQThNu9YQWLaAMUgIPNbOAOhYEKdKZEfXEXvJJDoRQXpPXGcAVAaQYYgVSVg ICAgICAgICAgICAgICAgICAgICAgICAgICAgICAgIC KeWTKzJMMbKAIhXGRnJGIyFYNvWYNtCFExKFFbHY0ATMIcRLPjWUWpRJZgPXAjQOBxRAJzBHPmTOElDF AgICAgICAgICAgICAgICAgICAgICAgICAgICAgICAgICAgICAgICAgICAgICAgICAgICAgICAgICAgIC ZrRNCcHYOuEWEaDZ0BKVGeUWVbAJCcKFImWMBvNIOx ICAgICAgICAgICAgICAgICAgICAgICAgICAgICAgICAgICAgICAgICAgICAgICAgICAgICAgICAgICAg XJIaDXCaWHJfKVXfIHTbKFJmCPMnIY3SOMZqHJSxOFSaWORyNCCfIBSwKHLjDIIzAWUfKRBcUHIrECMq ICAgICAgICAgICAgICAgICAgICAgICAgICAgICAgIC XvUIWhLFNhQEYlXVAwOJBjAHBtGFCwIICcCHZaVZClBD5QXBSiTYKkVYUrLYYrULBeEHFzDKEbHISpFB AgICAgICAgICAgICAgICAgICAgICAgICAgICAgICAgICAgICAgICAgICAgICAgICAgICAgICAgICAgIC YdFQJnCEAwRYBzQNUyLO8FBAPbWZWnQGJqQUAhATYv ICAgICAgICAgICAgICAgICAgICAgICAgICAgICAgICAgICAgICAgICAgICAgICAgICAgICAgICAgICAg HSXvLNZjZMHvPBBjIPDlZZArSTCiRFImJG5QTRHfZUGrINKuWUCxPVMaHWHhUPKoTOAbRBMhBZDcLCYl ICAgICAgICAgICAgICAgICAgICAgICAgICAgICAgIC ZjQNWhZLEfZMHyBBLjOLJhWWVmGCVyVLNrOEZmAHUbQLCbDJ3FTGWbKRCoNNMfORInYEVcAWAkKBSbPK AgICAgICAgICAgICAgICAgICAgICAgICAgICAgICAgICAgICAgICAgICAgICAgICAgICAgICAgICAgIC MiEMOxRLDnSVBmSGWiGEUtAL0YVNXiAIDwIHNcLKDs ICAgICAgICAgICAgICAgICAgICAgICAgICAgICAgICAgICAgICAgICAgICAgICAgICAgICAgICAgICAg XHDuRCJaILBqONJpDICgUZVkDHUfPFQuPPLfOE1PTGTrETOiQBJdVPXtDOZyDJMeMNEyPHBhDEIxMABt ICAgICAgICAgICAgICAgICAgICAgICAgICAgICAgIC QpKARjCCLeXMYpGQGmEWIsUBZzUBCdGVLwUDOeXUSyRCDaLJMsBL3LCA80zCVat1D3AXXyRK5zyyo/Pg 2ZMXauihTqpISeAP5YKoUsUJ7tks5EJbJqRE9tcr4DNCgDYzGdT3X4gNNkWAOpLCWEGiNkO99aBKepSz 88TUoyRFTdFnUtCLh3Uc3GRtBrK2wyPGLfFhJ2CAXb ClZ3VHEwSsI2BYJiBkGlDHmcQW0Mg0EzyUWcWUu+Pe4WIO1hk1HuEQjiHfJgGX2otg7HWRoCJsRaX9Ye lqS9GZF2YKAiOz9YHYMdQMHjjRYmYUFsWYOGYuDfT6JdaL14YWIGAy1+OVyxbcSrEkqXUsU6VJAtz3Kx WFy9TE1YCPItQMb7bNSsPNXhQ6Gky3PtYz72OVQlEv ztFDphjJJbwRIKWU9tuTmjPXHsQRJrGZ6uGK1nXYFuAEO4CqDsEBHILQ5NMHNiHBXokFPuAIMoJNBOCO 6MMWohVQI1CGGokwUreXGrIRwxKN5NNQCddaUuUtHoHBUTQVp+Zn2SCX6kk9OpTOcqINVfSY8lwl5TIS eTLkNzS4N2qFJxZ3N9PMtfXg7IHPItEFRnLkXyNRLZ AJomVK3AJX5vfzS9HS6ZsPLtNHJqVOGrwNCbYLt0R09ssEAgUJvhAG1TORX+Romie+Nl9EGXYvMRClERPj YpAsVYNKOxOsH1LoU5NLd5YxX7AmHB17zHlddcNfSKtaBE2RUQ8rBCYuFCEVHB3HrKGmiY3wqxPjKyXg DNZNYgPgS75ozWGkKIRlIUEyRHPlDo8TBPPbR9Eovi HxoKpspnBbURPuIMMBUF1IKFvmwdFvtCXopEtiDU91jKujAQ5BYf6JSnTfBV4oht3FlHXrOp9EWMJkNf 9WHSWpEQJxYQKjHMB7IUTbThGhLBqjBXJwNGWlPUI4MPOsKESmBX5CVqXrGTQzSyE9PsZzEXGsTTLwfj 7WKQKqDSMiIxE6TjJpFKZeTECiTUhyJPWiFMQzDMV0 ZCKhVEZmNL7VEsOrGRNgZEB6YICrTVHpINZnwi9DJHInOYAaWzw5UPGdQGUpEZTvLQoqDNBsRYR5WUBo WBKzGATfRM1SMrCvABUnLUooDOBuUAExSFYtzy0NWPRqTLYuSKN3GYPdEPHtXUBaXCqiGZGsYHI3YYPf TCLhQBBuGE5WGcUyZYGlZPM7BeSmGTKvEVTfpd2AXG XlGUFnRIU5CTDbMDXqSAPoFUfwMDUtQECoKVLkZWJlOXCjVU5TMwRmPGOwAMG4YLTrTGIzLXVddt7AYY IeATKyIkEnScIcGFIfROWuKXgjUFYaXAKoACvzAPZtIDKhOK0WShOuMNRfCiZ7QeBvAJZuNDTbqq6CKS JzNTJfGza6UbFnNPSxGIGgNUbqYLTiBPI2EBQ4SOZo FPHrLZ9ROsImWOToIyP1PLNsBFGeDMVfqi8VXCVkQXGrHDG5RVLdDNTaOPWaTCctGOBuMMH3BKLwNKBy BRZlKU1AEeJsZHAcDvP0TUDiSTXkXDAnxy5KZDWnHQKcGvM4WaPpFAWpCLQbFMdkBQViATD9TmYnOISp BLCfHE2DTdQxKMwiGYUKPof9ZOiwE5y3ERZgLu8TV8 Fek1VqBcUlUVTJWArfKF5biwCrICGzNc0QT9aOMekxZSJ5Jai3S2UkNID8OuntYvtzVbF3S9NcXILbBY HnGV6zAHX3MXZdALXsZXR3BUnrIfS6VDFvGbtdLNC0NwPwJIT3HeLgRX7DLy2WCyU6TFB5uSCcWj5ZSs I8TtVELwLeIE7QRUn= ID Date Data Source [id number] 10/31/2020 10:44:00 AM EDT [facility] ([facility]) Name Value Range Interpretation Code Description Data Negin rce(s) Supporting Document(s) Glucose, Fasting 101 mg/dL 70-100 [facility] ([facility]) Blood Urea Nitrogen 8 mg/dL 7-18 [facility] ([facility]) Glomerular Filtration Rate Laboratory test result [facility] <content>Units are mL/min/1.73 m2</content>
<content></content>
<content>Chronic Kidney Disease Staging per NKF:</content>
<content></content>
<content>Stage I & II GFR >=60 Normal to Mildly Decreased</content>
<content>Stage III GFR 30- 59 Moderately Decreased</content>
<content>Stage IV GFR 15-29 Severely Decreased</content>
<content>Stage V GFR <15 Very Little GFR Left</content>
<content>ESRD GFR <15 on CEMENT LOADER</content>
<content></content> Creatinine For GFR 0.48 mg/dL 0.70-1.30 [facility] ([facility] Potassium Serum 4.2 meq/L 3.5-5.1 [facility] ([facility]) Sodium Level 131 meq/L 136-145 [facility] ([facility]) Chloride Level 96 meq/L 98-107 [facility] Carbon Dioxide Level 29 meq/L 21-32 [facility] ([facility] Anion Gap 6 meq/L 8-16 [facility] ([facility]) Ast/Sgot 27 U/L 7-37 [facility] ([facility]) Calcium Level 8.5 mg/dL 8.8-10.2 [facility] ([facility]) Alkaline Phosphatase 137 U/L 45-117 [facility] ([facility] Alt/SGPT 21 U/L 12-78 [facility] ([facility]) Total Protein 6.2 GM/DL 6.4-8.2 [facility] ([facility]) Bilirubin,Total 0.8 mg/dL 0.2-1.0 [facility] ([facility]) Albumin 3.0 GM/DL 3.2-5.2 [facility] ([place] [facility]) Albumin/Globulin Ratio 0.9 [facility] ([facility]) ID Date Data Source [id number] 10/31/2020 10:44:00 AM EDT [facility] ([facility]) Name Value Range Interpretation Code Description Data Negin rce(s) Supporting Document(s) Red Blood Count 4.16 10 4.30-6.10 [facility] ([facility]) White Blood Count 6.3 10 4.0-10.0 [facility] ([facility]) Hematocrit 38.8 % 42.0-52.0 [facility] [facility] Hemoglobin 13.3 g/dL 13.5-17.5 [facility] ([facility]) Mean Corpuscular Hemoglobin 32.0 pg 27.0-33.0 ME DENT ([facility]) Mean Corpuscular Volume 93.3 fl 80.0-96.0 [facility] ([facility]) Mean Corpuscular HGB Conc 34.3 g/dL 32.0-36.5 MEDE NT ([facility]) Red Cell Distribution Width 13.0 % 11.5-14.5 ME DENT ([facility]) Platelet Count, Automated 111 10 150-450 MEDE NT ([facility]) Neutrophils % 81.0 % 36.0-66.0 [facility] ([facility]) Lymph % 2.7 % 24.0-44.0 [facility] ([facility]) [place] % 11.9 % 2.0-8.0 [facility] ([facility]) Eos % 2.7 % 0.0-3.0 [facility] ([facility]) Baso % 0.3 % 0.0-1.0 [facility] ([facility]) Immature Granulocyte % 1.4 % 0-3.0 [facility] ([facility]) Nucleated Red Blood Cell % 0.0 % 0-0 MED ENT ([facility]) Lymph # 0.2 10 1.5-5.0 [facility] ([facility]) Neutrophils # 5.1 10 1.5-8.5 [facility] ([facility]) Baso # 0.0 10 0.0-0.2 [facility] ([facility]) Eos # 0.2 10 0.0-0.5 [facility] ([facility]) [place] # 0.8 10 0.0-0.8 [facility] ([facility]) ID Date Data Source [id number] 10/31/2020 10:44:00 AM EDT [facility] ([facility]) Name Value Range Interpretation Code Description Data Negin rce(s) Supporting Document(s) Carcinoembryonic Ag [Mass/volume] in Serum or Plasma 30.5 ng/mL [facility] ([facility]) THE CEA ASSAY IS PERFORMED ON THE Chargeback BY CHEMILUMINESCENCE AND SHOULD NOT BE COMPARED INTERCHANGEABLY WITH OTHER METHODS. IT SHOULD NOT BE USED ALONE A SCREENING TEST OR DIAGNOSIS FOR THE PRESENCE OR ABSENCE OF MALIGNANT DISEASE. PREDICTIONS OF DISEASE RECURRENCE SHOULD NOT BE BASED SOLELY ON VALUES OBTAINED FROM SERIAL PATIENT SERUM VALUES. ID Date Data Source [id number] 10/31/2020 10:44:00 AM EDT [facility] ([facility]) Name Value Range Interpretation Code Description Data Negin rce(s) Supporting Document(s) Thyroid Stimulating Hormone 0.394 uIU/ML 0.358-3.740 [facility] ([facility]) Free T4 1.31 ng/dL 0.76-1.46 [facility] ([facility]) ID Date Data Source [id number] 10/25/2020 01:20:53 PM EDT [facility] Name Value Range Interpretation Code Description Data Negin rce(s) Supporting Document(s) Progress Note [facility] YJGBHs5eMnXTCzFl17/ODSyvXFOpy6JrOJzlYNg7ZTaqASReW4OfWPW1uI0yUBS0ABiACiMtLjEpVEEz [facility] [file] SZU7IMH2YPo0N3O7UKUzDjQiKcR+MF5gKPm+Do7Ym9PymzN7bzFbSNqoGGbuGc6YJYPOX0HKKd== ID Date Data Source [id number] 10/21/2020 04:35:14 PM EDT [facility] Name Value Range Interpretation Code Description Data Negin rce(s) Supporting Document(s) Progress Note [facility] WLYHSy1zBvOJHnQw70/OHChoVHCmi6TpWHsgCXv1BGuhMCOxC2HoBWX2vP6eMFG5YRbCQzEmGaWmWsTl lbm [file] AgICAgICAgICAgICAgICAgICAgICAgICAgICAgICAgICAgICAgICAgICAgICAgICAgICAgICAgICAgIC AgICAgICAgICAgICAgICAgICAgICAgICAgICAgICAgICAgICAgDQogICAgICAgICAgICAgICAgICAgIC AgICAgICAgICAgICAgICAgICAgICAgICAgICAgICAg ICAgICAgICAgICAgICAgICAgICAgICAgICAgICAgICAgICAgICAgICAgICAgICAgDQogICAgICAgICAg ICAgICAgICAgICAgICAgICAgICAgICAgICAgICAgICAgICAgICAgICAgICAgICAgICAgICAgICAgICAg ICAgICAgICAgICAgICAgICAgICAgICAgICAgICAgDQ ogICAgICAgICAgICAgICAgICAgICAgICAgICAgICAgICAgICAgICAgICAgICAgICAgICAgICAgICAgIC AgICAgICAgICAgICAgICAgICAgICAgICAgICAgICAgICAgICAgICAgDQogICAgICAgICAgICAgICAgIC AgICAgICAgICAgICAgICAgICAgICAgICAgICAgICAg ICAgICAgICAgICAgICAgICAgICAgICAgICAgICAgICAgICAgICAgICAgICAgICAgICAgDQogICAgICAg ICAgICAgICAgICAgICAgICAgICAgICAgICAgICAgICAgICAgICAgICAgICAgICAgICAgICAgICAgICAg ICAgICAgICAgICAgICAgICAgICAgICAgICAgICAgIC AgDQogICAgICAgICAgICAgICAgICAgICAgICAgICAgICAgICAgICAgICAgICAgICAgICAgICAgICAgIC AgICAgICAgICAgICAgICAgICAgICAgICAgICAgICAgICAgICAgICAgICAgDQogICAgICAgICAgICAgIC AgICAgICAgICAgICAgICAgICAgICAgICAgICAgICAg ICAgICAgICAgICAgICAgICAgICAgICAgICAgICAgICAgICAgICAgICAgICAgICAgICAgICAgDQogICAg ICAgICAgICAgICAgICAgICAgICAgICAgICAgICAgICAgICAgICAgICAgICAgICAgICAgICAgICAgICAg ICAgICAgICAgICAgICAgICAgICAgICAgICAgICAgIC AgICAgDQogICAgICAgICAgICAgICAgICAgICAgICAgICAgICAgICAgICAgICAgICAgICAgICAgICAgIC SlGIHtVWXmINLqSWBpWWBgHMYyVJZlKCHpNRLiHADlINWmITYrUHQaIOUiZJGtUMo2A5jkKMMeTAYzGC 5sQKl1Nc6+FZlCWtHwDJW5jzFlgA7ZSG0mr3JuUAwh HZSqw4PfRXi2DA5WTWXuTCxxMM0IQUkulk2MNQWvFJQooHEDs8fgSnQlVBQ1IYQmOlgsSR9LQFJzU9lm jiMoCJTbTMUTBCjtTONOGQgvCROQZD6CLcTeJ7PshU15MILPTk4+EPjuquUaRcoKXzZiDGVnh3MjWDd1 FU5UVVNuUohhg8VnRdKjUOQRWVnyZE8LBSL9NKJ0XF MqSv0ENRHoZ373uuIeMT0QAz1RBxGfNZ7prk9FBiDoQMCuUyuMFko5BJetVZ2XuRHqNZkDvb1jddLwjw KEd6NkmfLveOTLTMGfEXTDILYmNEFwjXMjv40eBLUPNEVppQR0FaHmQmAnRlMlLAO3QQXeYU0sGKhpUZ 1JTEW2LYrwAKYpRDMlC8uPBbIiISDpTGXgiMbxFB5K AzFiU3WzcmAsoUKbRwZeZBDNVt9+WSchtnZnYmaDGxK8JWIvb8XtPZz8QT1GEYLdOGvfNM5YSHLazX1g MZkxLO4ILpElUQDjMRUZWfTzF46qeIRoKYk3P6KhWyDbLBIcNcdaAIQgEFknUgEpUQXhHvHzWPdoFR7+ ID4+TJmgVI2ZMIqkneTlLEYpVc9JBYCoYFFmHW6qDB PmYWHxN8S9tZjdOKMNUqAuP1pgisbeHX4rFFWqW743mQlwldMeMKScCLYcAb5RCUXwSSN9IDCsoRHwHy GeKRIEEKxhHT8VlMXgHAR5rL6sRYsyECNtADSjT2pUSrFzrOsaCY95jMgzcvTrlGMaMJn+Pe8JHA1gb8 XbDKf3twCxNTofRED9RLgcWFMnSDAgQKKgBQN4WKF8 ATISGcTrGAAnPFRhRKveOHKmYLAejr3WXHIeKENxEyFwPEHnAQVtZHEnSJcaAFBbYLG5QYS6QBZtVTGv KE1ELqSjUKUoKRUdELzhQESsLGZqvp8VDDOiKMRlMuLhTDZzHFPtTJNgAXoeGLSxARNzGxS9LXJaUIZr LG1MKeLuFYRyZQSsRVgeXLAqUBGkwz7GEQYuOJSyOn F2JpKwFPLpONGsZPtjFBVdRZG2FOR5UXGaHLPaAR8RObXuPKAaUHemVNbsERNaZKDgqn7HDFMnLMGuHO YvDOMiTKKcEAEdOOiqOXGuFAR4RQI1DEKkVBBaVM3FShVdIYEiVJb0MLcvSNJxZYGzra3UGUEfHSCtGN K0UnDiNFQgNPWtKCdrGWVdVMGeQGC1WEXoQNKbMO5O JoJhOYCiJNRdUGqvYRFeZERcmx6RJWKcTQWoPiL3WkFlCEJoVOIyGXkoDYHdVXTxXRPnGYWrSKJjLZ6T IhJhCHHlZqRzKSJvZQQpTUIbfy8CMFCvLZDyIrE0WNFnLDRoBSYqAOfaETNvDZCeBCL6AFYyZOFfOW3S UhIvRQIxBhN6JDezPWClSVWijl8CWLPdACBtOPB2LE SpYJXtURBgJWdwPLZxPYF2OjY8EMJaLVMnNR9SPrWkHMIqKgB7TSJtKBUbNBUkmv8TqKAdkNovkg3UOB gMAj0ZhEcoVXJ1YUizZf3unSZdEBTrIHURIm9HrrQyYFWfUNGBNZisKXDmVKU9TXOpEgCrIUGiXIHxNM AmMwE0Vzb7XMT5DJJmMUs2QvA0QUlpStQxHVJqJAL7 IbAaQVNcDACiIucfRORgNHL7IQV+QP9wIFp+Sn4Gc4AtwbR4dgVvRCkyNXkwHt4YZJKRY6MGFp== ID Date Data Source [id number] 10/14/2020 10:47:00 PM EDT [facility] ([facility]) Name Value Range Interpretation Code Description Data Neign rce(s) Supporting Document(s) Glucose, Fasting 107 mg/dL 70-100 [facility] ([facility]) Blood Urea Nitrogen 8 mg/dL 7-18 [facility] ([facility]) Creatinine For GFR 0.46 mg/dL 0.70-1.30 [facility] ([facility]) Sodium Level 130 meq/L 136-145 [facility] ([facility]) Glomerular Filtration Rate Laboratory test result [facility] ([facility]) <content>Units are mL/min/1.73 m2</content>
<content></content>
<content>Chronic Kidney Disease Staging per NKF:</content>
<content></content>
<content>Stage I & II GFR >=60 Normal to Mildly Decreased</content>
<content>Stage III GFR 30- 59 Moderately Decreased</content>
<content>Stage IV GFR 15-29 Severely Decreased</content>
<content>Stage V GFR <15 Very Little GFR Left</content>
<content>ESRD GFR <15 on CEMENT LOADER</content>
<content></content> Potassium Serum 4.2 meq/L 3.5-5.1 [facility] ([facility]) Chloride Level 96 meq/L 98-107 [facility] ([facility]) Anion Gap 10 meq/L 8-16 [facility] Carbon Dioxide Level 24 meq/L 21-32 [facility] ([facility]) Calcium Level 8.9 mg/dL 8.8-10.2 [facility] ([facility]) ID Date Data Source [id number] 10/14/2020 10:47:00 PM EDT [facility] ([facility]) Name Value Range Interpretation Code Description Data Negin rce(s) Supporting Document(s) White Blood Count 9.4 10 4.0-10.0 [facility] ([facility]) Red Blood Count 4.35 10 4.30-6.10 [facility] ([facility]) Hemoglobin 13.9 g/dL 13.5-17.5 [facility] Mean Corpuscular Volume 90.8 fl 80.0-96.0 [facility] ([facility]) Hematocrit 39.5 % 42.0-52.0 [facility] Mean Corpuscular Hemoglobin 32.0 pg 27.0-33.0 [facility] ([facility]) Mean Corpuscular HGB Conc 35.2 g/dL 32.0-36.5 [facility] ([facility]) Red Cell Distribution Width 12.3 % 11.5-14.5 [facility] ([facility]) Platelet Count, Automated 184 10 150-450 [facility] ([facility]) Neutrophils % 84.2 % 36.0-66.0 [facility] ([facility]) Lymph % 5.2 % 24.0-44.0 [facility]) [place] % 6.9 % 2.0-8.0 [facility]) Eos % 2.5 % 0.0-3.0 [facility]) Immature Granulocyte % 1.0 % 0-3.0 [facility] ([facility]) Baso % 0.2 % 0.0-1.0 [facility]) Neutrophils # 8.0 10 1.5-8.5 [facility] ([facility]) Nucleated Red Blood Cell % 0.0 % 0-0 [facility] ([facility]) [place] # 0.7 10 0.0-0.8 [facility]) Lymph # 0.5 10 1.5-5.0 [facility]) Eos # 0.2 10 0.0-0.5 [facility]) Baso # 0.0 10 0.0-0.2 [facility] ([facility]) ID Date Data Source [id number] 10/14/2020 04:27:20 PM EDT [facility] Name Value Range Interpretation Code Description Data Negin rce(s) Supporting Document(s) Progress Note [facility] RUYHHa7yPaOCQgVu44/YQWclCGMes9QgTWxsICa9PObcDMNxA1XbULO2iY2mVFR7LJnLTbRaZlJhYyZy lbm [file] ICAgICAgICAgICAgICAgICAgICAgICAgICAgICAgICAgICAgICAgICAgICAgICAgICAgICAgICAgICAg ICAgICAgICAgICAgICAgICAgICAgICAgICAgICAgIC AgDQogICAgICAgICAgICAgICAgICAgICAgICAgICAgICAgICAgICAgICAgICAgICAgICAgICAgICAgIC AgICAgICAgICAgICAgICAgICAgICAgICAgICAgICAgICAgICAgICAgICAgDQogICAgICAgICAgICAgIC AgICAgICAgICAgICAgICAgICAgICAgICAgICAgICAg ICAgICAgICAgICAgICAgICAgICAgICAgICAgICAgICAgICAgICAgICAgICAgICAgICAgICAgDQogICAg ICAgICAgICAgICAgICAgICAgICAgICAgICAgICAgICAgICAgICAgICAgICAgICAgICAgICAgICAgICAg ICAgICAgICAgICAgICAgICAgICAgICAgICAgICAgIC AgICAgDQogICAgICAgICAgICAgICAgICAgICAgICAgICAgICAgICAgICAgICAgICAgICAgICAgICAgIC AgICAgICAgICAgICAgICAgICAgICAgICAgICAgICAgICAgICAgICAgICAgICAgDQogICAgICAgICAgIC AgICAgICAgICAgICAgICAgICAgICAgICAgICAgICAg ICAgICAgICAgICAgICAgICAgICAgICAgICAgICAgICAgICAgICAgICAgICAgICAgICAgICAgICAgDQog ICAgICAgICAgICAgICAgICAgICAgICAgICAgICAgICAgICAgICAgICAgICAgICAgICAgICAgICAgICAg ICAgICAgICAgICAgICAgICAgICAgICAgICAgICAgIC AgICAgICAgDQogICAgICAgICAgICAgICAgICAgICAgICAgICAgICAgICAgICAgICAgICAgICAgICAgIC AgICAgICAgICAgICAgICAgICAgICAgICAgICAgICAgICAgICAgICAgICAgICAgICAgDQogICAgICAgIC AgICAgICAgICAgICAgICAgICAgICAgICAgICAgICAg ICAgICAgICAgICAgICAgICAgICAgICAgICAgICAgICAgICAgICAgICAgICAgICAgICAgICAgICAgICAg DQogICAgICAgICAgICAgICAgICAgICAgICAgICAgICAgICAgICAgICAgICAgICAgICAgICAgICAgICAg ICAgICAgICAgICAgICAgICAgICAgICAgICAgICAgIC SnJGIgAUWlSGKuDCh6W7glHMRfPKXfDE4hMPx8If7+BOtEKzOrLAX7lpWgtR6ADM5oe9ErSOrxABVco4 BnVIw1QJ9DTXBwNAgxWY3JZWknvt0JDQLiBPHhiUHOj4eiPxIaNVU1RCNoDctrVV4XLDCbO7ecitIwIL OfQWTWUGlwXOTVOMksMABXFF9SKzOsO9JqeA46NJBX Cj4+BSjdtpYrTjvCGjTiCIKkr2RaJCc4WK7WFGLpJxnte6FcVsNjCLKRGHwnAJ4WGSW9OJO9DCFcHx6P YODbN986tiKyIJ5DWw3PGkHjOJ1ptg3XSuDcWZVuUcbCDig5JUqwOD9BaYDnEXcHpf2gauOthwUDg7We uhXckJLCDSxtFAz7rSRmVLVWIRZqoTJ1RmJxDxEgHg TkULF8USCiJC1tYDqmOD9PVDF1PYfsYBFtJNGjP1iKUuYcXSOwJGTrgGadJG4DYgCmH0SuwsJbqRLzWe AwIFINCj4+WOmkmpXcZfyDNxU8PAUsh0MtJJm3DH8SQZOtIBonSU0PLWYcyO7pFDyzFW9IJhNmTDOuFS ZPJfNjY28xdJDjFFk7A2GyXaDtCIVoBnexLQMpBIac TmFtZXMgWyBdDQogID4+ID4+KVniXF0AZMndedLqSNVqYv9DCQEsFDNwDI4bKZXpMKHqL2L1iIqyKJBQ FbVuG9pvmoahVM6vROBdA391oXsqhsSaWBVtKMEsDw3MNBPrSIM9ULProJAlGeFgECBNCBdfSV3IqGKc API5rQ8eIYsbBSJxBULeB8sXYvZacWagIP58uJzzit VsbCBdDQo+Xe2YLV4ya8AbUFc3ihHxVAjeSCA0QNraBAGwMSOnXLEjDOJ5PKO2GGNAOyIwMNFyHZErTC nlDZQrIQQtfk4OSVChXFAmZeGdKfEzUZTaHYHmBYgcCWGkSPD6VHWbIIVbDJRtAV2CTnIgIKMwELNtUO dcFIRrGBRnkg2MJYOeXCIzQwBxJmMuWOSxQJKiPLcg KVVhSVAbEzPmTCViZRSlAI1UNyLnXFEnJHYuIamxCTTnWSSogx3RUATgXTFuHgG8VUZbKCCsLNTpLTcy VNFlLXL4DVN3YYPlYHZiAL1LSsRcNMKcTKokXhZfIZSxCODtiu9VSKTcCGQwKIMwYaTsOKCeSMOaGRqw DZLzZZN9NKP6CZQxEGHeHC0CTaWaJBLoHDr8OXYtRA PeMREvdo7APUShXTNhPCU6WTViNEFsVZStWWdgXABxHIFyVcAvYNPwQDWgCZ5QXnShQYRmCFN3KGOoTY NsDJEruq9CFBZhTSUyVvJ5WYFiSBCyQWLsIXciUPBnRWXlFkR2AMNbWZQcKG6MFcUlWKSvLgQ2YWXrUU WjZXHwgd8HRIJpTITgJlH2QJHaOIHqXPFoMZmtQWIh BVTtUxPmEPSiQFTaJG0WWhXuSJBfWeP9XPBsGFIlLVPfyj6JWUMfFKEnPLT7XvZeMENxKIAkDViqIMEb DWQ4QzNtXUClRRJkNN6AQeWmJREcCoYiWamcDQSjOBNhex9PzMZtgInhln7SZAoXVh4CzXscMFU1AOek Va6vlNYoQLPqHMEGEm9LwyOoCAAqBSHMGRrqRBEkTA RcWCHvXJOcIHVvQHF4TmKzMBU3YVG2KBQtAwL3TNYxTqD9QeEzVcY6BjI0PCU9YmF1UZPhBiJ9PeyhFG EzMTZhNTM+WP8pFVv+Cw0Gb4YhmeV0eiVnMWuhTQZeGt9KHECJE7SFCv== ID Date Data Source [id number] 10/07/2020 12:25:01 PM EDT [facility] Name Value Range Interpretation Code Description Data Negin rce(s) Supporting Document(s) Progress Note [facility] UZQQTo4dLrRDNlNh56/AJNewPJFto3VwNCflBFm4JAmtTCAuZ4FeOYZ1nP4xQPY0NAmGLgRgHnKzPuX2 lbm TaTdsCNfYoTJYkXhbPQtDuXVksUtpeiACfEQ3MrUM9XHEqG38qPIYgVGIjI3LgMVFwHSI+Tk6LKPJqjH MtDT2SGmyX5Bmbg4e7Uz++cS4RHUuyEm0jFLFGVBlKbQlbEbjvPiegYpw1qGgK6fEwmXkRxqFeBb5bnE zGM4uAYzGDZyiCT5Qhr+/b9nQYEj99Ivp8PtFU7A+q P/2Qk8mC/EQonU2h9Rmi/vtMPEcOjLM11kMbM9w3+1GTB6E9ahKSL7s1jeerVOAF4qouVsxdNzl5Sw3+ WbO1JTkJ4vYeYjAXS3VAoTRXAYfCudaTf0VlheVw5SCRYRD5O8IITKjpc+g7QIpQN1RQ168WOj89Kbad gPHNSWHo5UJZcGSI+fUmoIHGYbow6x3m2OMi7jm1PI h9MTqcRx9sUcGDIAYdSxWuMuags/RZbba6WkcTtWxq0Cp8YKt+q3VkDYEXMFGWBfya7xhie1jdv+Wf8e ANiHw4E6IEKSsnSfBKTYJeA7MpU8r1h0MJB7AsKc4hjbBi2jE9XTkrAM71i9DwNEJRxzsC+0lyN/By5V MNNGYtD1UwNdcdMUJ6/kRP6Wf2uIOCuTL+k/ uERUxoi/aZTsVD63mzJjNUqqF/bYJgbwzXT37ntJCMIix7njz13Wvhi0vr5lkpHe3zz6/NrWE9cqZho3 lK9oi2upAeoLWFZxjPFEcZmbVousFOT8Ic3eF4YkvCWo5vxiDIDljw+Zlt7UUd+dkbN/W9yR58DLJXoz LZCE285VBaNhZO9F7MM7mrgXfoRpqvh/crxaxCbrLQ kmTaWBna4+zOYZnEHXkHjScD+Ok/g6TpJ4+yPegY0HlBW5Vrh23sfBeDky8JbuhbGI6TMbNrlJaHGQis OSvAYPrmBjUpB+GHQ7JGCmZLMPoVKw87UUZogWen9BjJPwW8CRY1jkfnapnYNOjZGwoT7Fx2w8aiqkPN 2wk2G5RJ1vTgwVooSE12k3ZclC73l1y/o4Sb05n1w2 [file] ICAgICAgICAgICAgICAgICAgICAgICAgICAgICAgICAgICAgICAgICAgICAgICAgICAgICAgICAgICAg GFOmZOTzXCIfQSPyBMSrLPPnDCLpMUVnROFrYI3VZHZzVZLeQKIyYUYeVUGyELPpIOQwMMVuIQMtHMJz ICAgICAgICAgICAgICAgICAgICAgICAgICAgICAgIC ZlTMBsOGOqUYVfFYHhVGSoINXlPACtFYEaEXYkGWNaAUNxMVNjWO5REVJtTMCqQNAeIXBuSRWcQZNnPD AgICAgICAgICAgICAgICAgICAgICAgICAgICAgICAgICAgICAgICAgICAgICAgICAgICAgICAgICAgIC ItFMXlFYIsGSNkDDDuVEBhRLSxTE1UPSNyRVKeLEKe ICAgICAgICAgICAgICAgICAgICAgICAgICAgICAgICAgICAgICAgICAgICAgICAgICAgICAgICAgICAg TPXtNFMnZJLiJELgMYUqYOJmMSHaLKOxAHRwKWRpAI9YYBQaXPEdVWGjYNZbTPAlZPVqSQQmNNHsEJFr ICAgICAgICAgICAgICAgICAgICAgICAgICAgICAgIC VoSRLgSVYiXZAuEMNaFAStQWFvROZrDLKfTFSxDNLaHWRzVGCdYCIhTS1YZXUrHYAtQLOeDLKbWZXlAO AgICAgICAgICAgICAgICAgICAgICAgICAgICAgICAgICAgICAgICAgICAgICAgICAgICAgICAgICAgIC AvTANoEAJvPGShMSCqCIHkWLBwBNQxYP3HAAHeODYu ICAgICAgICAgICAgICAgICAgICAgICAgICAgICAgICAgICAgICAgICAgICAgICAgICAgICAgICAgICAg DCPnZAWbJOKnSJVhWTPqZAUkWXVcZBKiDRAzDCRkTEDjBS9VWJJrWVEiYRUcCUSkEVEaQCKpNFEdSBCo ICAgICAgICAgICAgICAgICAgICAgICAgICAgICAgIC YjOJKrQXPoEYSbPEBmAWFwGRWsGYRzHZNnQEGvJTErMKZtXZDyXHKdUFQzJB7VTODgRIDlOVCfKBBgMD AgICAgICAgICAgICAgICAgICAgICAgICAgICAgICAgICAgICAgICAgICAgICAgICAgICAgICAgICAgIC IaGDNlCCUjVZIpYZPzTATvJBSiJDRfHKNrHP8PAMBb ICAgICAgICAgICAgICAgICAgICAgICAgICAgICAgICAgICAgICAgICAgICAgICAgICAgICAgICAgICAg PXYmGZBlOMZsRHMcYTZjEYMaTILiWEXgFXAaILLhHTInYJAfOZ2OXM68oFPib4L1YUPuZU1iciu/Pg0K MKdkseWiuUYzON6TUpBoPW1hji6ULbXhKO8ipy3YPI lXOuXyX3D1wKWlKHXjTSYGVaJqV21pCMsvYa59LQhtAHQdJyArUOr0Wi6FIjToI9niIAEbRwM9NHIwMs T5IMVpFfT9ZQDsSoVdBUdjOA9Jk9CitNNuQRj+Wh6AQP1jt3PdQIwfXnOfDF1qgq3QKOzEJsObD4Tagj N8EWS6FVJaKo5XCIHgLKMloKTmYQVzGGSVPiCnV4Nj fR74SSZIJt6+TUgkapQoXviRMuT4UBCdc9BdMRo4FT6KMTEhIOx8pQTkMYUeT3Clf6VxQy87LNGsRipe EwYjIHOWkBB2YIeqEBJoHIWzBw3zYk6oPTMlIBElBaYpQLJNLJ7HDPAcRAEwsAVuJLNnRFYDHC7PUXhe IXU7RGBoddGvrDQdWKlpWW5OANRxyiYrHvCwGGBKRT o+Jn2YOC8va1ZmRWuoIMNrBX1vki3DKLjMQvFsI3E2rCStG2W5VBrlKt0DNLJiOXHoQaQmWSIDROscXO 9ZTI5iyvG6VX2WzZLhIXPjVVTvtLKpGQv0K12qyXMeROfsGB4SXYE+Romie+Mg4QTLHoMDTvFXXtOzLaTO EYXiAhT9XoY9TIa7GgE5TiMZ90qZdvpvBhTMhzMJ4V NG3bXAMaOVHKAF6JkQOodR0ccoZxRvXeUMZBJoNaF03iyPMyGRCzXOGrOVKnDm9RUSYmT6PaqgObfCqe xxYrNVFjOVCUKM5TIEdahqZlyXEmlBflHP69yHoxAP9ABh7ZPiOyTE9atw5YyMDrSc6TIQYjXx7YELFu BCOiQDDhWIX3AMRgNyVnYLgnJTGdDBCxBCQ9UWIwII TjAF0VJqRkNVEwYeSuTlguJHTtRVIciy0OLAOeZEZiTHp1HoNqMEJlSWRlMZvkWLQgSQAoTJP0FEApFG CvML2MJiSmJUKuFYG4XJhfQXKcGKGdsq1YPWEyWSBzWwf5CpLhXVXhDTAnJMguLFYdTMC3PuT0FJCfQL BdWN9RRbRiTXEcHMJ9GjAvSRSwWFKsqs2CGAHwNRYh WPW7NpBaHZQrPZMcUBroKDXrGQK0VacqNICtLGQpXU2JNqWsPRUdWZdlDDBzUXKbCARyjq5VNXLuDDKp WRI3WWYhNYWjUYXwEDnsWKKuPKD6HyEjUHFpKRVdPI3TEwOjRKDvNJJ4EFOeYKFkALVvay3UFKHvXRIq LVm3DgLtVRWyNZHoBTnkOANhWBXsSEtvIMAuRWQkCE 5LOiIxNZPlYdEeKqEqWFOgHXMozk3WVIOdHVHpSzH2DAJqVQUdHVNdAUngKWQpAXTdXZQrGASpRWFnXI 2ENzMzDFHnCrCpFRWiEUAgLSGahh6UIYIyIUDkKdT5UqFjXTUnVWIbYQevREYhOTQwJqI6XRTmGBAeZI 6EAsJpRANjFdJrDPgvHSVuQQIyuc5KUOFvZGUuWHL6 GNJlYGTeNDHaYTasMQJdQDC7ZmJgCAXrNUOrHG8LZnYhUUfqPBOZSgi6RMsgI3x2OPJeNr8IV7Ozs8Dw NsUmOMWYKPogPR2cffGjCHCdRf3IZ9cXTpeoERZqKfBsZJD0CzHcRQZ6ZmYkFlGiYgBzBFZgRVjxAK9p EBKqSGQoMvS1LIq1YMH9SGO4XXYrESLlIoWpTnR2Wt S0ZoUgTG6CAt6NVyG9PSI0nLMsRr0RLwQ6QEtEZmBtBZ3ZSYk= ID Date Data Source [id number] 10/06/2020 09:16:56 AM EDT [facility] Name Value Range Interpretation Code Description Data Negin rce(s) Supporting Document(s) ED Provider Note [facility] LYJSIp2wUcUYFmBm26/EDUcrWVMaq0CqBUkkXRs9DFttOZBnP3ZkZLT5xG7jGVX4IQhMFfDuDfJdEpP1 lbm [file] PH4UBPz= ID Date Data Source [id number] 10/04/2020 09:50:47 AM EDT [facility] Name Value Range Interpretation Code Description Data Negin rce(s) Supporting Document(s) Progress Note [facility] HIPYQl6fLfKTQyAh69/MYWmuVBIeq4CkHQydBPx1ZOnpALSeU6XsVVQ1lM1cVRS2DBgLXtCfErJfTvGj lbm [file] VlCxC6KqOWq2StUnGuQoZDQqAo0bPBETFe6+AJujbDNkpUzuGVBKJoJ0Drv7AKkvHMRKIy4J ID Date Data Source [id number] 10/02/2020 03:09:13 PM EDT [facility] Name Value Range Interpretation Code Description Data Negin rce(s) Supporting Document(s) Consultation [facility] VHKHNm2qJfFKYeCw83/YYRdlGHNip0UePYwlTQu8FXskZOHgN2CwXXP9aC7iIOZ5JJaTIpLiRyQrCeOl lbm [file] DgKbSB4nHFELRg8+DCxrnKZlrTrwAHZWYjXqCwCcSVlpKFYEDa6H ID Date Data Source [id number] 10/01/2020 08:00:21 PM EDT [facility] Name Value Range Interpretation Code Description Data Negin rce(s) Supporting Document(s) Progress Note [facility] DODGOc9dJdMJYeJf80/UKDhiHZTsr7WdBItxLOa2QQuyADPzZ9PnGXW3uC7uMWU2KHwKJcQvBkBjZjPp lbm [file] G7FoDnBILzC8OcNq5tVJRHXb3+OOhsvCSolPluWXABFgB4FqPEOaUgVK9SKBn= ID Date Data Source [id number] 09/22/2020 11:27:18 AM EDT [facility] Name Value Range Interpretation Code Description Data Negin rce(s) Supporting Document(s) Consultation [facility] UODKWw0lIkIUHsZf73/SEJgkZHBqj2XiAXilWVe2WMrcGCQeY9MgWGP4zL7dRYH6IJhXRkQyNyBiMhVn lbm [file] AgICAgICAgICAgICAgICAgICAgICAgICAgICAgICAg HVMyTUHfBJNkCPToRUGvUVLcEWVfRQQbERSnQRLsTKYwXHPhUTHgTZDyJDCxXL7VFVClUZYmJGAvPAHc ICAgICAgICAgICAgICAgICAgICAgICAgICAgICAgICAgICAgICAgICAgICAgICAgICAgICAgICAgICAg QSWkVGFcYWFrECBnJLHcBOTpOGTwYPOcHNTpZG5EGG AgICAgICAgICAgICAgICAgICAgICAgICAgICAgICAgICAgICAgICAgICAgICAgICAgICAgICAgICAgIC IkTFAbMKFuWXBlNHFoNZHoZFUzOLCaXQYqZBKsDQSbSIRwMNWgKC5ZLNPpUPBwLVBwTPVjVXMiOBLjHI AgICAgICAgICAgICAgICAgICAgICAgICAgICAgICAg CKTrHHIcIPMfMRMrMKQkMAIqFXDuZZLzETVeXQDhDHWnBYErRYGcFFTvOJKdAHGlVV6LZUCtUURmANAy ICAgICAgICAgICAgICAgICAgICAgICAgICAgICAgICAgICAgICAgICAgICAgICAgICAgICAgICAgICAg ICAgICAgICAgICAgICAgICAgICAgICAgICAgICAgIA 0KICAgICAgICAgICAgICAgICAgICAgICAgICAgICAgICAgICAgICAgICAgICAgICAgICAgICAgICAgIC GpPYTzHUXyQLFtRAHcKSFuSZIlMLUiVTYdHPTkVZCdCVNlOPYaMVMqWH9OJJIhLVOlLODvMVMfQHZqIE AgICAgICAgICAgICAgICAgICAgICAgICAgICAgICAg ZEEnWDYoWDLaEUTwDEDmFCLoYVHxIVEuWIDrHAEwRYDePCHlZWZyAOPoQJClTNVdMRJzQE2DTLQdQHKo ICAgICAgICAgICAgICAgICAgICAgICAgICAgICAgICAgICAgICAgICAgICAgICAgICAgICAgICAgICAg ICAgICAgICAgICAgICAgICAgICAgICAgICAgICAgIC PpYU3REKYxFPTwOAGsOMOwVFOjYPUeMXHhPGEcJMGzGXVcTWAjPNTbHXDwSWXxJCGfGIBwMDEnFLRzAI KdSDUxQTOrKBKfVPDtHNBoYWAkSVJdZNIsODHdTEBbOBNcROWfGDMbFUFlAF3GUWMdGCKqHUGzAEWgJB AgICAgICAgICAgICAgICAgICAgICAgICAgICAgICAg TIGtDYIuREUpYLYzCKDpAKXmWRHlGJKrEFCfSIWoYCHeJOEaLXXwSKJiSDGeNUWgIKEuNNBkCD3GDJ71 tPUsu2L3AHGxMD5yvrc/Xg7RHIxhfhHbzLFjCS0PXhKkZS4qmg1AFzMeLP2xpj6KUZuSGkMxY9J7bDFx FPSrWGYJOzQoV04jEEtdPc14UJbwYFJeFqFgHZt1Ru 4BJeWsY4txZHNoAoG3YPDpCnA2FHCcGeS4YDZbDcRrGGZbAKGvMBWnLGHSKYU4QUCrGtDfNOyzWJ7Hf0 MnrXO2BNd+Xh9ZYM9cn2JqFFrkOrPjSW4yau9IPCvXRqSsZ6AzfxX6LGHdNAWhGg0AXEXpAPWisRMuLw HgXDCJRqGdM4MsrS51SVRESq6+DQplbmRvYmoNCjMz YLRgs1ZbMDe6GF0XRQLeOQs8hFDiV40tj1XjrFMoQkxgTaQbCVCcHIU7QEbplmWdFNO5SNQRYGWadEG1 AnNhBzEqLfDyGZn6MYRxBT9jJFybLV4JPOD0XEyfUMGpYGErK0vIZyLwEOGdNPOnmGxwBF5BLsFaT0Uf cmVudCAzMiAwIFINCj4+VWayisUcBlcUYfN5HBKdh6 VkVSx2AA0JEHSxFKkhRX5NXFWrtB8bXDrqYV7UNtRcVXYpDOQNApJfD60stYDnMYb7D6KtWkYbUDRvJv lsZXMgPDwvTmFtZXMgWyBdDQogID4+ID4+OPtqIZ9SIOdfokSrZPUfMc7SCCPvEYOdPT4iPMZzEZZqX5 C1zRjzXEHIJeKtK0cmfxanWU9pLTBtS480yYgabmJt MZHrDYJlBt1TQGQfNPS5BBJjwAFaMuGkCOWCKFvyAN0EfFAhEQW7dN8oCUlxNXCuFMYmC5mUWdOqvUer PV13rBgfzhMdkIPwGMp+Jf9FIH2gt1HnOGi2vjBqFIklSKR2QEyxQBDkPBYgBDQtHAQ2RQJ4XYFHBaBc QWBgIEAlEBcqYOEkPNLwhh5ZCUTcSSMxUOErFSKmIC OjCIIjYKwjDLUqOJL4EQAiAZYcXLBrII4UYlFhHDIyOPJeXFldXHDzLUJpcj0RYOCtJIXwJvYjZNMxTG SxIWNaCZlbKAUuLEFgMyX5IRBzUZJtYV3JZpHlGSFwQVxeFUuiVTUiUQOgdv8KOFIfCEBrPiNkLvTpBY ZcIXFuBQevVNIrNCGmVAR6TMTzVAFjZW2VVtMnWDMm GZDjQwelHYMsLPQewr9TLMSaDTMpShNlBZZsCWYjJQUbROisEFUnIUTlXpW0ISQzAVMuTI4LXaPsKTYe AEZ6MFImJFUvCEVbyi7QBKRqHYIhPUf3OfNcHEIiEDQfAXheWQBmUGP3TNS8LGKpSGVdOA9QIwXpUIEk KHx4NdZsXZLeADFshh6ICLIxWYZiRDvaNUWhDPCcBY XoXZpcMXJnPQV1QTG4QTHvSIJkIU3EBiPeXUDsYAfhSVJrETPjFSTksz0EDNJcHVOrZPC8TSFkXQEnGE YmPDcxJQKdTPVlLehsZPHkXMQlJJ9EZrThIUEdLbB5WIkjHWFbVNNqyf1DMFVaYDEfEITeRCVkPTGfHN VgAScnALUxQCIqHoW5DDCkRXWhWI3YRrXjBDWvYgF9 NEjqSHWsXEAgkt0ERDGeFPYpDkT0LXOsPRRbVIVyBWflGXWeSGDpRSRzZQVzYNZkJM1IUzYlTTOyRtF9 FGEeCWOkMOWrhk2IISNyUQQxNyq6AZUxJPKzDRLcCJdxVDSrRRR2ZNd5CASbHBZaDS8WIhMoNNLkLfH1 HXJnNDYoPLXgwr1GIDSgNBZkBRa5MWNcFMLsXTFuQQ jvUCVqFPR7RLL8IGIhSZMrKN6YIxVgQGUvBgBbNUUrGVNrZQQquo1ZzYZwqDwnqn9TUNiVWc5RzCwtDU Y0FUfxNo7dcIYvENKlDRMTPp3SapHcIHUbPVTBIQqlIILpNAVqJqLdXRVfRFBhSOJwRRIzTFSlZOG5DH TaPHV0EutxSuV7QOW8YWT5VRE2JlTbVmKqM9A9ShRp QfWyGCC6IeUkZGJ+EI4dOKs+Sm9Lz0DmpkJ6ndQeJPwfTpQ0Oj1QMONOU3VSSm== ID Date Data Source [id number] 09/21/2020 01:47:34 PM EDT [facility] MR BRAIN WITH CONTRAST [id number] RESULT Interpreted by:Pa De Oliveira MD09/21/2020 7:56 AM MR BRAIN WITH CONTRAST [id number] CLINICAL INFORMATION: brain metsADDITIONAL CLINICAL INFORMATION: None. [...] rce(s) Supporting Document(s) ID Date Data Source [id number] 09/21/2020 10:37:12 AM EDT [facility] Name Value Range Interpretation Code Description Data Negin rce(s) Supporting Document(s) Progress Note [facility] BPFNQn4gCoRJRtWv13/TFWwdGIJxx0YhYZsaCEs6YBgwLMIkA6KaVNO3zP8qASY4ESoAOxJkOwFvEuPq m [file] TlOVp4Uiv3IQluHDVLUa2O ID Date Data Source [id number] 09/21/2020 09:57:50 AM EDT [facility] Name Value Range Interpretation Code Description Data Negin rce(s) Supporting Document(s) Operative Note [facility] IQYEBz6cJnOGAnMo05/LHXkoBQVxx5PfFLpqEWs0FLubPRQbR3YwFIN9mM9yNMK5LUyJYuLlTcKvEuBf lbm RiWnaAMuDkFFChCksRFjQwETbjKqdfkGMaNC3ZsPG7FOCdO03iQKIiQTRqL6JjMLJ4MxI+Vk0XNHPhdR QxCV1RJreB5T4nh9dOPm9wzG4TCoGvPmOBhuGid1udNV2e13krXwsoNoNFoxyBszZWwbbeK/EiaSbrz1 nrmkm0ew/oiUNni2Wh+YQ72UiK/PenaAWeZVli/v/i 1yCSonsr/wPQZB7kjZQiz8/ZQ+QFaYVWULyQ/btC044e5uDqfWTEyb6dEycZZnQ3YcDdHw404O19bS1b wpq771FwLkpgARfleTSFi5e72WSVb7cmH+ks3hW2uew3LxKJbR1XhIHqpHZhV8y4j+nsjUSeLM6Kc4Kd u52IQLs4nSCw2GJxZ5KRNBye2qB9nQzyim2j97diiv wt9yho2tq2WH6yKbABgW74orF5sGRsDLuFWAmIRugegadYv56WkpNcxT56KbaxZOLpeSsV8T7TdDcMoP bLP+TvDiZnrCfHePiQfqGJhlmzkWaDfarCiEO6dUBgaEnn8NV8Y3to+bNx8IlYyKnlqbGQmGaruyzK/Z jMzcCfK8+qIWLO8Bb6e5f0kFbMgY3pUD4Z/G9YMQ8t /l+Li4iR5BzODoiKWH0n7+vRukyckEaj0MDFXcGB6j/NldITxw0VZ0xWscFDvVBTI8SabW6qGb3hOv+e B6m5lMnVgeNVc/GqZF/lMebOYp1RpSgBd5n5YS0trWJCbaXvW/Fm/HO3rgceye/iYb6cqI+ffmi/Pz4V p//FwrenM62sIVv8M7M8Ce3CkPHz45RzFMnhy3iw14 UtV1y9+Rajiv+WXvlvrJUtOOSqUg4XGHPw5B7MMHHrqJbGTSF1xBBrWx0EuzeFZisYUbnOCaMRLQGHPyjY4 [file] DQo= ID Date Data Source [id number] 09/21/2020 09:06:40 AM EDT [facility] Name Value Range Interpretation Code Description Data Negin rce(s) Supporting Document(s) Operative Note [facility] XRLKQn8fChKVGdYn00/CUJexDNUbw9WaWYydYAp7UJkxAXPkM8MbUHN4bO9oFLZ0ROxXNiWlZfCrQmJz lbm [file] ID Date Data Source [id number] 09/21/2020 05:41:18 AM EDT [facility] Name Value Range Interpretation Code Description Data Negin rce(s) Supporting Document(s) History and Physical [facility] GMAFTe7aRdJVHcVf28/PWScsIGKoz3WlQEorOQd9WVpvRVSaF6IkTQZ0eW5pRFO6CAvWWnYjQwVgSoXe lbm [file] ICAgICAgICAgICAgICAgICAgICAgICAgICAgICAgICAgICAgICAgICAgICAgICAgICAgICAgICAgICAg ICAgICAgICAgICAgICAgICAgICAgICAgICAgICAgDQogICAgICAgICAgICAgICAgICAgICAgICAgICAg ICAgICAgICAgICAgICAgICAgICAgICAgICAgICAgIC AgICAgICAgICAgICAgICAgICAgICAgICAgICAgICAgICAgICAgICAgDQogICAgICAgICAgICAgICAgIC AgICAgICAgICAgICAgICAgICAgICAgICAgICAgICAgICAgICAgICAgICAgICAgICAgICAgICAgICAgIC AgICAgICAgICAgICAgICAgICAgICAgDQogICAgICAg ICAgICAgICAgICAgICAgICAgICAgICAgICAgICAgICAgICAgICAgICAgICAgICAgICAgICAgICAgICAg ICAgICAgICAgICAgICAgICAgICAgICAgICAgICAgICAgDQogICAgICAgICAgICAgICAgICAgICAgICAg ICAgICAgICAgICAgICAgICAgICAgICAgICAgICAgIC AgICAgICAgICAgICAgICAgICAgICAgICAgICAgICAgICAgICAgICAgICAgDQogICAgICAgICAgICAgIC AgICAgICAgICAgICAgICAgICAgICAgICAgICAgICAgICAgICAgICAgICAgICAgICAgICAgICAgICAgIC AgICAgICAgICAgICAgICAgICAgICAgICAgDQogICAg ICAgICAgICAgICAgICAgICAgICAgICAgICAgICAgICAgICAgICAgICAgICAgICAgICAgICAgICAgICAg ICAgICAgICAgICAgICAgICAgICAgICAgICAgICAgICAgICAgDQogICAgICAgICAgICAgICAgICAgICAg ICAgICAgICAgICAgICAgICAgICAgICAgICAgICAgIC AgICAgICAgICAgICAgICAgICAgICAgICAgICAgICAgICAgICAgICAgICAgICAgDQogICAgICAgICAgIC AgICAgICAgICAgICAgICAgICAgICAgICAgICAgICAgICAgICAgICAgICAgICAgICAgICAgICAgICAgIC AgICAgICAgICAgICAgICAgICAgICAgICAgICAgDQog ICAgICAgICAgICAgICAgICAgICAgICAgICAgICAgICAgICAgICAgICAgICAgICAgICAgICAgICAgICAg QEMfXZGzLLPiOYRpZXIdMWPjNYEaJTZpLHIoIXDxPGXtCDOcLYFqJOc6L4enWJGcGQErYC5qEHs1Qi0+ QNhWEkSiPRH5ztTtpF2ZRS4wo9WrHIovRIMmi1MrPK d5IA2XGHPeGSbwIV9NZSjkbx7HFFRcVJIpkWSYo3xjGrZpPFR9YVXlUasmIB6FFOPfE0finkQmFXMmBP VCHNarASBEWI9MMzBbY9ZdwF64GEEORw6+FOkriwMfXzfBUsJ7ZULyn7PmMDe3XM7XNGIjDiciw2NtAV rmCESUJZevEI1YJTX3GTV5WGDpVp9WOGZzI271jcRh JW0OCw8JMoJhNY5fnb4HUEtoPSRcZchBEaq5SMlxRP6SbDYwYTuCLeZkYtvzN4EecGPuJIIgLUSpaQyh CWWgUYBwTa1hEB8xTFOnMNC0LeTuBKOTYV6BBEPvJPPtsIPjBPRwTLVZBQ2ZKVwxKYV4HHAwodJpzWRo IRizDC5TAHMzddYyZZNqWKODELz+Lr3PYE8nq2HsPF ccGETkES7lwp0SJDcHBvJgA4E8eLRlJ7A4KGthLw8USIAvKKYqEOFfOLXAHUzoVQ3VYA4vafE4DB0ObO EdZVSwOJZglOXvCYa3K30bzGUcDFulGJ5MWYI+Romie+St5ZADXyNSNoOHKbMaJlJUDZToDzP9IyY5TIl8 SxE3WjOZ18qGeyhvKnLWzzGP7XIV1vPZXyHRYQWM8O rGBbxC5iqrDoPxPpVSDZZuCcY13yfYIhNZMiFRK4OLHgJy1CHNTsP0DjwfDxtAatpgOxVMLpLPHOYR4I VLmhsbRflWOntJueYM04yInsSP2IVs8TNtXaUH0sze8XyRZkLf9RBPXcCL6ZQSJqNTUaIPUwKWU1YFFr YvPpABucOSUyRCNlVNG4UYMdNAOmKH6ZLwBiTOEnDS dtOCxrDQJeMPBpya8KNWWuWRIhOLjsTNIrSCOySKYoROqbWYRgAGAeXPN8QIVeJXVvJP5RVcPuCDPeHG V1AuWmEJTzXWCkcc5SQFHmIBCaIqs0DHYoVTNrDTPqBYwpVJKoVDA9QpK7TXZgCXBwWP9IAgBcJROqUX G1YFxuWZSoJAPvoi4DGDEtYMEjKbH7UAHnTQFnJFHo GVcjXZVtSWA4KTB0KTUoISAoTT3BVqWoFLIgCEI3RNKaXQAxAUOsrf9AANIgRBNvXnybRIMsMOSjTTPn EElhFEXbMZP5IGL0IWAlWSGmGC9TOzYuOJTeKMrtHSVwLXDsMMUxzm3WQTOiRVKcVYD3CKVbVXMqNOKx ZEjiQGXoEOT0LSNxQQAkTUHsCG9CYaHsNTPwWDFxVX ZuJZEgVEWyuj6RPFLtQHLeTKS2YEIzPVDuONWwLXy4gyVteSDjDFt0OH1ZG9AjuiRfCCzMBn9Hp652NI F5LOOgUp8MJ3hwWv4dAIPwDUESDd9DLVe7AVD6Vbs8V6UpINN1XxCzG9FiH8BkPRicXhI0FGWjAwX+ID l6ZWmsVmifU5JbMclgAIJ3S9B5HPGoDUChPcogYYS4 MF5cHWULHz7+TUrokDMssCifVZJVBfYtLtf7XNasDGTNOs8I ID Date Data Source [id number] 09/20/2020 10:16:00 AM EDT [facility] ([facility]) Name Value Range Interpretation Code Description Data Negin rce(s) Supporting Document(s) Carcinoembryonic Ag [Mass/volume] in Serum or Plasma 8.2 ng/mL [facility] THE CEA ASSAY IS PERFORMED ON THE [employer]AUR BY CHEMILUMINESCENCE AND SHOULD NOT BE COMPARED INTERCHANGEABLY WITH OTHER METHODS. IT SHOULD NOT BE USED ALONE A SCREENING TEST OR DIAGNOSIS FOR THE PRESENCE OR ABSENCE OF MALIGNANT DISEASE. PREDICTIONS OF DISEASE RECURRENCE SHOULD NOT BE BASED SOLELY ON VALUES OBTAINED FROM SERIAL PATIENT SERUM VALUES. ID Date Data Source [id number] 09/20/2020 10:16:00 AM EDT [facility] Name Value Range Interpretation Code Description Data Negin rce(s) Supporting Document(s) Glucose, Fasting 110 mg/dL 70-100 [facility] ([facility]) Blood Urea Nitrogen 9 mg/dL 7-18 [facility] ([facility]) Creatinine For GFR 0.70 mg/dL 0.70-1.30 [facility] ([facility]) Sodium Level 131 meq/L 136-145 [facility] ([facility]) Glomerular Filtration Rate Laboratory test result [facility] ([facility]) <content>Units are mL/min/1.73 m2</content>
<content></content>
<content>Chronic Kidney Disease Staging per NKF:</content>
<content></content>
<content>Stage I & II GFR >=60 Normal to Mildly Decreased</content>
<content>Stage III GFR 30- 59 Moderately Decreased</content>
<content>Stage IV GFR 15-29 Severely Decreased</content>
<content>Stage V GFR <15 Very Little GFR Left</content>
<content>ESRD GFR <15 on CEMENT LOADER</content>
<content></content> Potassium Serum 4.1 meq/L 3.5-5.1 [facility] ([facility]) Chloride Level 97 meq/L 98-107 [facility] ([facility]) Carbon Dioxide Level 28 meq/L 21-32 [facility] ([facility]) Calcium Level 8.9 mg/dL 8.8-10.2 [facility] ([facility]) Anion Gap 6 meq/L 8-16 [facility] ([facility] Alt/SGPT 21 U/L 12-78 [facility] ([facility] Ast/Sgot 15 U/L 7-37 [facility] ([facility]) Alkaline Phosphatase 126 U/L 45-117 [facility] ([facility]) Bilirubin,Total 0.7 mg/dL 0.2-1.0 [facility] ([facility]) Albumin 3.8 GM/DL 3.2-5.2 [facility] ([facility]) Total Protein 7.2 GM/DL 6.4-8.2 [facility] ([facility]) Albumin/Globulin Ratio 1.1 [facility] ([facility]) ID Date Data Source [id number] 09/20/2020 10:16:00 AM EDT [facility] ([facility]) Name Value Range Interpretation Code Description Data Negin rce(s) Supporting Document(s) Prothrombin Time 12.2 s 12.5-14.3 [facility] Inr 0.89 [facility] ([facility] THERAPUTIC HUMAN INR VALUES INDICATIONS NORMAL RANGES PROPHYLAXIS/TREATMENT OF: VENOUS THROMBOSIS 2.0-3.0 PULMONARY EMBOLISM 2.0-3.0 PREVENTION OF SYSTEMIC EMBOLISM FROM: TISSUE HEART VALVES 2.0-3.0 ACUTE MYOCARDIAL INFARCTION 2.0-3.0 VALVULAR HEART DISEASE 2.0-3.0 ATRIAL FIBRILLATION 2.0-3.0 MECHANICAL VALVES(HIGH RISK) 2.5-3.5 RECURRENT MYOCARDIAL INFARCTION 2.5-3.5 Partial Thromboplastin Time 26.8 s 24.2-38.5 [facility] ([facility]) ID Date Data Source [id number] 09/20/2020 10:16:00 AM EDT [facility] ([facility]) Name Value Range Interpretation Code Description Data Negin rce(s) Supporting Document(s) Red Blood Count 5.04 10 4.30-6.10 [facility] ([facility]) Hemoglobin 15.8 g/dL 13.5-17.5 [facility] White Blood Count 11.0 10 4.0-10.0 [facility] ([facility]) Hematocrit 46.4 % 42.0-52.0 [facility] Mean Corpuscular Volume 92.1 fl 80.0-96.0 [facility] ([facility]) Mean Corpuscular Hemoglobin 31.3 pg 27.0-33.0 [facility] ([facility]) Red Cell Distribution Width 12.1 % 11.5-14.5 [facility] ([facility]) Mean Corpuscular HGB Conc 34.1 g/dL 32.0-36.5 [facility] ([facility]) Neutrophils % 79.2 % 36.0-66.0 [facility] ([facility]) Platelet Count, Automated 222 10 150-450 [facility] ([facility]) [place] % 9.7 % 2.0-8.0 [facility]) Eos % 0.8 % 0.0-3.0 [facility]) Lymph % 9.2 % 24.0-44.0 [facility]) Baso % 0.3 % 0.0-1.0 [facility]) Immature Granulocyte % 0.8 % 0-3.0 [facility] ([facility]) Nucleated Red Blood Cell % 0.0 % 0-0 [facility] ([facility]) Neutrophils # 8.7 10 1.5-8.5 [facility] ([facility] Eos # 0.1 10 0.0-0.5 [facility] ([facility]) [place] # 1.1 10 0.0-0.8 [facility] ([facility]) Lymph # 1.0 10 1.5-5.0 [facility]) Baso # 0.0 10 0.0-0.2 [facility]) ID Date Data Source [id number] 09/16/2020 12:45:17 PM EDT [facility] Name Value Range Interpretation Code Description Data Negin rce(s) Supporting Document(s) Discharge Summary [facility] YUHBDl9eGkQURpSf86/ZQCkrUXRve2SxMTvmNVv0WExdATGuX7NrWEZ0lL8rBBJ3CSdXCzNnHdNvQoM4 lbm KxCegTUjHaVUDrCsnQAjXqBStnBeprgXGvVW0ShEL8EVSrN98gQTAbPAEsC2BkKLD3FCL+Og2NWYCytU RuUP0MLxxI9I6bygcUBs7zMW+kxFvJKtDZ2fpUSni8duhBN41jVDUShZBEDGXVlfcTgKN2yfkZ8K7bXb 1cCjkL3g09WbwxHrX80tfyWuTB/u+/ToF0qaQS9L/6 6gWmuJyLv/9W5BHwcllHx6LHcX5g7TujvhDo3SZh2vU9Ajy/aahOz7kQBXyzczdftRiKrioFWaf/LC5+ U3BavysTEHxGWBBvqrAfoizzQ4eOiqdz+poPzaacgE/BPJOc00GnpMyJE9dm630x6P640mSoPOdhGLDI 4lbwOeoUftIZMdvVUGpY3BTuA++UKZjsZJKLG0K79z mXxkjOMi5e4XAYWqJU9BwMgumGvvnY7vuQJ76Qhqo83f1NnTDD6aeGovmAAseUQAQ+GhQgzgbDJTX25M s4lLIL9EfcMWEwrqJrNgGB+Cg2jJs6cnnndstANaxpULjpj5spvcBmopGjfeo0k5wdTgMdLOHS+1ilZu SnexQDt6iGNy7trD7Wa3dF6q8gJXsOc+Ungq/E/diego [file] ICAgICAgICAgICAgICAgICAgICAgICAgICAgICAgIC AgICAgICAgICAgICANCiAgICAgICAgICAgICAgICAgICAgICAgICAgICAgICAgICAgICAgICAgICAgIC AgICAgICAgICAgICAgICAgICAgICAgICAgICAgICAgICAgICAgICAgICAgICAgICAgICAgICANCiAgIC AgICAgICAgICAgICAgICAgICAgICAgICAgICAgICAg ICAgICAgICAgICAgICAgICAgICAgICAgICAgICAgICAgICAgICAgICAgICAgICAgICAgICAgICAgICAg ICAgICANCiAgICAgICAgICAgICAgICAgICAgICAgICAgICAgICAgICAgICAgICAgICAgICAgICAgICAg ICAgICAgICAgICAgICAgICAgICAgICAgICAgICAgIC AgICAgICAgICAgICAgICANCiAgICAgICAgICAgICAgICAgICAgICAgICAgICAgICAgICAgICAgICAgIC AgICAgICAgICAgICAgICAgICAgICAgICAgICAgICAgICAgICAgICAgICAgICAgICAgICAgICAgICANCi AgICAgICAgICAgICAgICAgICAgICAgICAgICAgICAg ICAgICAgICAgICAgICAgICAgICAgICAgICAgICAgICAgICAgICAgICAgICAgICAgICAgICAgICAgICAg ICAgICAgICANCiAgICAgICAgICAgICAgICAgICAgICAgICAgICAgICAgICAgICAgICAgICAgICAgICAg ICAgICAgICAgICAgICAgICAgICAgICAgICAgICAgIC AgICAgICAgICAgICAgICAgICANCiAgICAgICAgICAgICAgICAgICAgICAgICAgICAgICAgICAgICAgIC AgICAgICAgICAgICAgICAgICAgICAgICAgICAgICAgICAgICAgICAgICAgICAgICAgICAgICAgICAgIC ANCiAgICAgICAgICAgICAgICAgICAgICAgICAgICAg ICAgICAgICAgICAgICAgICAgICAgICAgICAgICAgICAgICAgICAgICAgICAgICAgICAgICAgICAgICAg ICAgICAgICAgICANCiAgICAgICAgICAgICAgICAgICAgICAgICAgICAgICAgICAgICAgICAgICAgICAg ICAgICAgICAgICAgICAgICAgICAgICAgICAgICAgIC AgICAgICAgICAgICAgICAgICAgICANCjw/dSAhY5fmgKDullZ1L7chPn3ZEj2ZPO5ek8JjSPCfPLlpsh PcKtoQAzDaNLHlIoiWTzy1EWcbCI8GlOHoK7HsH1ZtZKlnMM4RFWMdXFTuqMUtITBaZUReQfP1VTYuXT prRF3SbWZwTNwyJKXxCHTnJkGxGSXxPRFvLPSuDTWs SHPSYRHlCZXdXlYgGRDeIMMwEV4DLJJbV127vmPsSn8GAg4ZBdYjFQ7kba8GAqHuMEApVjuRVtt1OXtq ZM5TaUFwlYQfVfYjXOHVJhGjS2zqq7HlZrRzVTPCUMfsEI4Il3IpcGToYXa+Jf8TLK9eu3KqLSfeOkUm DH7aqh9NLFqHBbWzM3XdiBqbTUBum2JiPQZoCYFAvZ 0lVEL0ZYJ9CRbtyYGvTQ8jGXmuW7ErzB8uFxKHlx5xPV5EKTH0HWGqAsEvQgRvHLQjZyiwYPQYSDhWQs RmY2Zui5KsKvZ7XWGxFqGlMYqfPWDcAoE7SJ93eXghKH2JHNPlDHIwZJ15EOK2RHRjKj9JRx3SQyLnPR 8lky8CSdcqUXRdWxxTWdv1ONeuZG7YnBGtG1RnwVMq r8kWKoXoV7BMKULvPFIjPo0FCPHaHkUsJJQiWFfpCR7kPNZoNIPHmPmwobE0EJ0ZKS4xcoPzDK4TPcDc Tr2zQw6KTxZqM4AlU3WfAATePTXYZOpwOS7PRFwxLZ4vZC1Su3ONoLOzpG3hfd9MIMCtSWHgYplave4E PtyhG7E7qRipWHTcVqSuYZDBPFqbZW0ZIQVqDXO3VC AbAMMgXXUXQcFhA30bBN8MC3Buq68vPnD9NAEiAfBnABilBA07hRaudpVgjQMlfUhwWP8VHs8+DQplbm XfQneENsjdFQKREeBjZleUOhFvBMRkIDOmWYDfEeY1EoGtGg7CNSZgFVHgULDfKwOgTMNrFYOwMLsuVE AkQVDaRzUwNJYgDRCaMD3XAfAsKENgJuGkTbLxLQXt FLFhtk9HLUErYIWpIRE9CbGoNQJeWHVgBJbqADXvJLEfTXc8CUXsHAYkHU4HEgAnEZAcFWQaRRBrRIMk XJOwoo1CQJXgFAYdZLi3QyBuVGNtDYSxPIliDJHoCZR1CAomENTvPGLfGK0UDpXsKUJvGWH8OLQeYXQz YJDgiv2JOVVhHWSoTSLrVEClGEEmJOZuHNitFEEjTA Z5ITygJBXsHDXdAC9NIqLoVDYvPKp4RMzhUNEmNWLhgs6KHMEhTBHxWGm1TIUlSJVnXGObTOwkVVUgSS WtLLU3RIZoURIvVQ4XSsWtMKWnEaW8ZcvaMZLeZJQmlx5QPWUdQTEtMsAdWsYjLJFbMXOiHLleRPPvOX BqGZrnOFMjYKLzDL5EDlKjZVVkLxVnHCMyZIViXNXq xy5EHNQwNMAzKsS7ZvTkQZCmBVEaNCorDNSwFTS9VXWoPSMrFOAnVH7EBlCtFBVpQsS8TqYoQOUbKNRt np4BDSQqNJFqZLddJcPzTWIyVGZdMDomEFPvBHJ5BtpnTPZvYHZwRL2ZEhVbMANbRjZ2UgktDILpSGPq gf8JQAQkLQJbGdV1YeNcSOKzROKcLZtxLDIbLJX0TI AkMPHfUBSbBI4FOpVmHXQkShxoXbHqDOSuAGKsks5KXSSzVWEkWxMbGsFhRECrOQXyQGcdIOVpKCKbTn vxQKDeVTWlWG3QCjGeGQPkNpG0ZVJdJKDvTEDoij9CVKHaHRXjOdhmGsNgPZSsXCXbYWliNOGwNFQpVH NkFRZiVZZlUU5IKlXfHMEmCmBjIPicOKByUMWaqr9A SZNgYOYaPvdrWqXvLYHtDJLsQOdpQIUyBGR3QJydRALgIPGySO1QVsTmHNPfMyCwJkGrBBVmQJCavz5Z OQUjSIYkZECxTTOlRVQpRHYoNQk0bsOayMHiJWj4HT0IQ9MwqdVbBqtIWn8Vg410YIO2ATSjHy6FZ8ar Ty1cKUHeHWSRPv8EGHu4DrSrIZRvMyUwXfN0E2ZeGJ T5ZMj4MDOxNgArGkPeXYE+GRrfCVFlQVCxTOB6QQhoX2YbXtJyWQHfXtZlFqJqWNNmWe4ePHBMZj0+DQ tclWDrgBmfYZHDWsU4AxS3LZgsOOEFCw5T ID Date Data Source [id number] 09/15/2020 09:34:42 AM EDT [facility] Name Value Range Interpretation Code Description Data Negin rce(s) Supporting Document(s) ED Provider Note [facility] ENPUJc8gRwZFSoOg83/THVtrDTExm5DxSQmxNFg8ROjoALEiP8FkSEV4nN1hHOW6YInLFkRrHeXfDkE4 lbm [file] UyNDQ+XN1jXEg+Ka4Yv3OglaI6dqYhGTa5AUQ2Ye5XOWXMT7OJUg== ID Date Data Source [id number] 09/13/2020 12:44:16 PM EDT [facility] IR G-J TUBE INSERTION CHANGE REMOVALFINA L [...] insufflated with air via a nasogastric tube. Health Clinician image demonstrated visualization of transverse and splenic [...] sheath and finally placement of an 18 [place] percutaneous gastrostomy tube. The wire and sheath [...] well without immediate complication.IMPRESSION:1. Fluoroscopically guided 18 [place] percutaneous gastrostomy tube placement.2. The G-tube may be used 6 hrs after initial placement.3. Follow-up after 2 weeks for T-fastener removal.This document has been electronically signed by Lowell Landers MD on 09/13/2020 12:42 PM Name Value Range Interpretation Code Description Data Negin rce(s) Supporting Document(s) ID Date Data Source [id number] 09/13/2020 08:18:28 AM [facility] Name Value Range Interpretation Code Description Data [facility] rce(s) Supporting Document(s) History and Physical [facility] GAYFNs3fAiEUTrWv20/VNLpwAAMrw0CbUBohNUf9HSxlDWXjI8FnFXD8gD0xMYO8CJxYTzAfAzTmUtOn lbm BbFgqPHrCdINZcVbnNFeLfZDgvCtnxvECgAL9NwUB7CCItC87yZHGaSOHoN9YuACYlTxL+Yq6ZNGQfhN SuAX1NTonK4SlbCpTV6oeP9u7tcwFv8nU3ED6Cc8nJrEROePn4nJihDamnk9lz2Hbmijtd0A435qn6kt qmpanNM2KSsUiga3ja705XpnCB/PnMYb7UUTHA2/qr ooeKe3s//3KgtaDoD2X/DA4JTga2jWcg9S2Ea4vjoGVTSfaB5LrbPk4Hed8Exs+oA8nLxgM0IvxTJRA2 hcpdCtYnNdtrQFAvlGKH6zPsGaIdehH6spv3AfICoC9NXVTZBrAgcm89A9RbEBqDw2Wt9pGYaF2JUJu+ BCEmAY+rQRhPoQMPRhjaLL36e+FgvRxhCwfNnnYq8X cCczYxnNsaF8yIP1iJbLrrX2orYvJiiLzbyYzIj6KttOR2MPJwWqkh25zx+0qij4Ae1pIrhrYWAKkj9q gvgnWFpCuVBy1wR4r9roIO/aRROE/JSThbTJPg/i4aL+8epqeTvUnHZaprQ2zkzVEKShmD8DoaHYGM+s UqwWjrKE2v/yMSdBIsJ80Ehz9+k5QehJ5bvEJKNMX0 ak/NHOad4zgew1cHAO48AEx7gv05x3pkf9ynJHxL1s7Tx0QOziTwqHk8IBc2plat472XOChKLbEGei0X SQzZviRfWABqpSKfkkMsdZGKxW0xlLRtXcBRtP3YIKnR95gLk2/W/dDrk/1mSF2d8mJlxG91P1H6ogK0 FBSD1MXjKJD7oSXwY3Evcnx9Z3dIOaupv8JDCg50kz 3iAWUklUgxAdOYRwfCDOtxqmA7S7ObQgP8IRKGUyS55NchDNOvWFbXXDIqTHDgk0ZSaNlvx4UqFOxFCg qwDJbP33ifou2KMVcVXgpBeEceeUJU0JW5kmYwSzBf+gZscGHuO2707K5D5kmhd5C2POzgnw/IZe/k/P i83yM/lv2WovwbZurynmmhlctpmySKaNKvhlCFTz0+ [file] OoP2GkYpISScJpFcEcBeFnZmEXHyFO3iJQZBDi9+AMwudNMonNsbDOWZVdQ6PEK1QCkgQBNFZy3P ID Date Data Source [id number] 09/13/2020 08:15:23 AM EDT [facility] Name Value Range Interpretation Code Description Data Negin rce(s) Supporting Document(s) Consultation [facility] RAPJGq4eWhYKYcZo71/SCBhtKDRhm7QdSPpfBXq7BDxpYYLsS6MiCGR8zI8uGDF6TAvYQlSuHeHvCwMp lbm [file] AgICAgICAgICAgICAgICAgICAgICAgICAgICAgICAgICAgICAgICAgICAgICAgICAgICAgICAgICAgIC AgICANCiAgICAgICAgICAgICAgICAgICAgICAgICAg ICAgICAgICAgICAgICAgICAgICAgICAgICAgICAgICAgICAgICAgICAgICAgICAgICAgICAgICAgICAg ICAgICAgICAgICAgICANCiAgICAgICAgICAgICAgICAgICAgICAgICAgICAgICAgICAgICAgICAgICAg ICAgICAgICAgICAgICAgICAgICAgICAgICAgICAgIC AgICAgICAgICAgICAgICAgICAgICAgICANCiAgICAgICAgICAgICAgICAgICAgICAgICAgICAgICAgIC AgICAgICAgICAgICAgICAgICAgICAgICAgICAgICAgICAgICAgICAgICAgICAgICAgICAgICAgICAgIC AgICAgICANCiAgICAgICAgICAgICAgICAgICAgICAg ICAgICAgICAgICAgICAgICAgICAgICAgICAgICAgICAgICAgICAgICAgICAgICAgICAgICAgICAgICAg ICAgICAgICAgICAgICAgICANCiAgICAgICAgICAgICAgICAgICAgICAgICAgICAgICAgICAgICAgICAg ICAgICAgICAgICAgICAgICAgICAgICAgICAgICAgIC AgICAgICAgICAgICAgICAgICAgICAgICAgICANCiAgICAgICAgICAgICAgICAgICAgICAgICAgICAgIC AgICAgICAgICAgICAgICAgICAgICAgICAgICAgICAgICAgICAgICAgICAgICAgICAgICAgICAgICAgIC AgICAgICAgICANCiAgICAgICAgICAgICAgICAgICAg ICAgICAgICAgICAgICAgICAgICAgICAgICAgICAgICAgICAgICAgICAgICAgICAgICAgICAgICAgICAg ICAgICAgICAgICAgICAgICAgICANCiAgICAgICAgICAgICAgICAgICAgICAgICAgICAgICAgICAgICAg ICAgICAgICAgICAgICAgICAgICAgICAgICAgICAgIC AgICAgICAgICAgICAgICAgICAgICAgICAgICAgICANCiAgICAgICAgICAgICAgICAgICAgICAgICAgIC AgICAgICAgICAgICAgICAgICAgICAgICAgICAgICAgICAgICAgICAgICAgICAgICAgICAgICAgICAgIC AgICAgICAgICAgICANCjw/tJLdJ8zbtBIeqbF2V3jb Ai5NJi2ZYU8yo0OwBYXfNLnyerBdAxlXZnPiEKLvYxoARna0PDsiIR7OdKQlP4YdG8VeNHysHF0NHUAk UIIwdCEjMOJcNZZqEiX7WKXnWHteXB0OqOYrSChxEMTiTLGvGvLmUCFjIMGoHXMzEOLgOIPKOFPaANFv IkTlMKvxUZ9Tz1WveFM4SMp+Fa6XDV0lw8XoQPvcTs XlVP6dmc0GNTwPPyTxI2CznxI1SGN7SODaXt8ISWBxMPSoqPZjFPLtFYJJCrXpG8ZncU77MVYOYn5+DQ cmlqKfVjeUKpW8VDJkv2NqXBx0SL2ZASKhSAp6tZQmD16iz9GfpIJtZbvtZMbvdGOhlECWTT7qeDtjSS UqTHWeJi5xAJ5qOAMqTKUaHdH6IHQNDX8LYODpBLLm eIOqAAEhBGSHEP9TSZegZBF5XGUvsmRvcKZtIEraKA3LUGCdfoQhNywjBWIGBMf+Hr8VLZ0ed3HdECgw WWAaVD0cwe3SABvGShKjS6S8aZUbX1J1ZUqpKq1KJZHaRJNjUtPrACSPQHhuLB3HBF6cqsP6CO8UvLPg OVZvVGJtnDClGNx1N04jaIXnQWxoBP5HALS+Romie+Pg 5OLCHxDKNkQOOjNmHvSCROZsLaR4BwB9TZz1QbD1BmJW78oWhkkvDcNJljYQ8QOX6fLOGrOKPVCI1JoC RbyS3hyxWvBeDhYVJVIxNuM20eyWQlZEPqBGQ9IKXaQk3PTMSoS3WrxwOdwYkbvrZtMHNcZCIHRS4WAB gmcaFanBDlhVouUG33gLfxOM3WGk3QRzKyIH1vkh9D bZXjCk1LJTLoXE1UPTPiMAZdRMIdJCY6YVDgRxAvOAuvCCAyESPgLJE7HFFxGLMlDJ4IRsHgXHQqScF6 XoUuUBEzUOZqyw3ANLWhXDWnEzW0SUVkLHDqEHGlHSxdGPReEGOlTJN9XOVkIFExOJ4NJiSfVPHnXPL0 UqanPMQeEVHtxd2IAGUzDEHmKRG1NsIvKVDrOGAfAI vfDRSfTTH4TsX4VJYbPSRmCU7ZBlAcBTEsCCr8FmRhWMGsYRKbsf1XFPYaGTQdQNG6AiAvGRKlBZAjOS fyUDNdFQAiKPRtTBIeXULtZX7ZXqNkKDZgKKU9QtSiXPCaOQMpjg0RECYvCBFmReq2UfEuBUBkOLMkER ejCAPtFZN4FCNqUHNiSKWbUY0PPwNvIWOzKWd1CBva SZIfBKSxsa0KQRMhEXQrCLScTWSfRMWwYJGcVGgdIYOjLPPzWHS1VLIvCNBkTA9NLxNrEFPqHtZ9PBfy QSOaOHEfby2SFYPqOAAyVJa7ExJaTFGsTBVeXSilFFWyQQCbQYJ6AUUfMVLsBK1GTgMeVZHbZzFzOMpc KHNdFTWjos8SOXItSZFaFnmaVyHfDEYpPBIcZTllSW VcWEK2DAQmMVVhLRGgVW4VWiCiCCGhZzLqNOmxQDQwAWIiup7PRBGqYEDtKXK2YOEqFFHtHYQhJAteTQ VqDNU1JwL7AFIpODKqLU7BVcIvPQFyCqGrPSOcARGoOCRjqx8BVJFzGKYjBySoYBThSOYpESSwCRajQT AmFGJ8SGirWDVfPZHaOG6ROqJiOVUuBoU4WuZaHGHj HMTnkz0EvQFpoSfghz6XJJuPSe9QfEjlSWWkCOfjUd1trPJmMSLbDQOFXk0BdjZyMTMzQBMXYGioYQHc FOR6FoP1DlW8VLZ7TmH9PNBzBEIfVuGnDGEbJQT6VYBwFxL1Itu7Xax1Uqd8SRcuYny4JCUsSrGyOMH7 QME1OmLsZRU+QM5jWVj+Kb3El7PtipE5tfHuIOpnUdy4Hs1YJITUU6FOKi== ID Date Data Source [id number] 09/12/2020 04:28:50 PM EDT [facility] Name Value Range Interpretation Code Description Data Negin rce(s) Supporting Document(s) Consultation [facility] RNDPPc8sZrQDBwRy95/NOIgbCUJzr3GzUIayOOt6ZOnuZHIoV4GfMSC4hU3tDZK9WMxJMhJyRlNlQwPg lbm [file] nBdw+architecture department chair/qANu99yj7YG4iSodI/N6QhCk3T/Dx2hdluHnfujueV2+i28aqOLBeWqH2Zi2jjXREX0QyIx [file] ICAgICAgICAgICAgICAgICAgICAgICAgICAgICAgICAgICAgICAgICAgICAgICAgICAgICAgICAgICAg UGWdQZQwIGApHTFiDVNeFNGqUL5TJAKrNENsWOLuIGRbDYTyADKgJWCgGKRdIVQdXKKiTBKoPUMjTFRj ICAgICAgICAgICAgICAgICAgICAgICAgICAgICAgIC VxWBJwZDSuSWJtCTKkOGExMPSmANUyKPRgNOJcBA8NUNGnRWIdLTMbGXLtBNRkJTOoSKFqTHXwXRSgFD AgICAgICAgICAgICAgICAgICAgICAgICAgICAgICAgICAgICAgICAgICAgICAgICAgICAgICAgICAgIC AjKLLwVCCjSJPkNR9QLUOzMGJyDYOnZUHeWWCxVQLo ICAgICAgICAgICAgICAgICAgICAgICAgICAgICAgICAgICAgICAgICAgICAgICAgICAgICAgICAgICAg AJHwCMIjAIPfTQQyWXFsTTGnPDOqAL2TNVNtIEDnLKNvAGOiOFRkKWUnAGKcYRRmTQMaXCCsBLSnZKXt ICAgICAgICAgICAgICAgICAgICAgICAgICAgICAgIC KaYLZcXOEgWRXvMJOzMTZeCQYmTPAhCMKtOOByTTMoHG2MEZVrWSUkJANfNRDcCTXaUDBkKRRsLHYdKP AgICAgICAgICAgICAgICAgICAgICAgICAgICAgICAgICAgICAgICAgICAgICAgICAgICAgICAgICAgIC YaGFVvFEAiFWFyWJCeHO3NSPOdPIJzIZWfFXQgHTFq ICAgICAgICAgICAgICAgICAgICAgICAgICAgICAgICAgICAgICAgICAgICAgICAgICAgICAgICAgICAg GAKuSRTeOMSiRTMoMOPjNYFrJMRdYUQzLF9NCPVvWQSmYSShGLLdQPJvVIQxLOWbEEYkHYBiPYYmVQGq ICAgICAgICAgICAgICAgICAgICAgICAgICAgICAgIC DjDHQlQMLtPABbXAYgJKNnACPqYFSrKSWfHYHmAZGzTNNaJX9UPDRePMCzUKGxXGCcNUPqBXLfYPLrHK AgICAgICAgICAgICAgICAgICAgICAgICAgICAgICAgICAgICAgICAgICAgICAgICAgICAgICAgICAgIC AdURJbCFBeVFElGERqNLWsBO3RAGBuIRMmOLKtQKVm ICAgICAgICAgICAgICAgICAgICAgICAgICAgICAgICAgICAgICAgICAgICAgICAgICAgICAgICAgICAg PNDeNINdNAXjDMEjZTJhCHSjYNNhIAAeXCQbOL5NTS32vIOxx2N6LBZnCN9selx/Mw7EYDhxrtArqLAu OW0KPmMqMH1jyp3FHcDvVZ6cnl8QJKjWZrYdN7S5yV RnDTGsHMJFAgSbP27jOMdmLs76SLvbIFPkMiXwVBb6Dt7MFyPcA7ikIYVwOzH6REOuPlA6NXOrAvT8DU CxOfUnUMKtEVNdWGOpOPRSRJW6EMYeNfUbUoTkSTIzLG0ZAOHvH494euGrQl9ZLu5XQxAgWL3xhc2KKm QqINDzYavAWhc7IKimJD9ZjGZtaWGpHDViXXXFGsQu B2kvg6WdNnDaDVGKEXijSB8Vi7UokHQwWAq+Tm5ZXI1hg5WpXXwxLYIaTV4moz5JCHzBYiIuE6HceBwe KLHjbcZ7vJJyVCR2WCbup1UzDQSEoZBnKMYZRDBtfIR7SoMhGtUtMfUaNBK5VgMzUE1zOKxjQD2GBML7 QPlaPEHyWSLpM4bOGaAjABZfMWSnoZpnNE1LLaOaG8 BhcmVudCAzNCAwIFINCj4+CNwvqkXvCkoDNyT0IHRvf0JdMHu7XK8UXGFuJTesJH8TSKBbbE8fCTswHD 0SSxOsAgEoTJDYUkNeX87brGJeQMz0K1EsScOzAKBrFwcqCOJyDOxqWhVzEYYcSaWiTZexWW5+ID4+DQ afQZ6QSWumynTiPTTnTe4MNXYiDOKpUY1hSSOyTMYo V6F8rLajMANEZvAxF6kxhczwNB1vNTTzS588xMheqhJzTUJ2NXAvDx4MWZAjISU9CVGfgMVjLcKoWGHI FSyeQY9UjWUnFSR5xY5uBJxcYDKsLAJqQ5eVMcObgTtoSC18nWlfvwKsgYGfEMj+Az5OGC9xv5JqWDa2 xkWoEMfqTCS5JMhlZXEuWMRqQORmINZ0IDV7ZBOJVs ItIRMtBQTrVEnsULWsGWCmhd9UITYaIZB3THuhNjBmIBIjDOXcTYfjDRJdBNKuWRFiXUAvLMXsLD6LIr TdYRXjCFSoLKghGOAjJCNhwg2VIRPzXWKhFtw7CHYtVZAyFJCqKCbzQGNzGWL7HKZ4CMIgZQVdFJ7RUh GjYSTvJUkrIPJlMEJdRBBcfi5ERALlWOJlOfL9EGTo VJOrUSSqJNbnJDGfHKAsAYH5SJCcDHQvAJ2TZtKnKCIyBPWwDqUnJPKiTNHwmv8BHEYsGLNtQiSzZTAu PPEdSHAcXOjkEDFrWDQoPTM8ABWeYUEaCN1AImUqCTPwQMF7ElDcGGBkAKAohr1ZATXgREOyHfpvStEc RZOdGIKeYCgtOTKnYDYwUUL8LZFjKRRjKR8UYyQfIQ HwDvA8TrMcMLRiPMEhfx9HLRKyJBBdMIMbDKXpCXFrDLHdNIncSBGyAYV6ZWH6JQHkUHIsXO9QUqYzKC TkJzAoRlFvBDNfQZOfwv9TRJBvSTNuKDB3EgWgDSJzLTMuBHcmUPFlNMC9FiU1BHWgOGFrEJ5UIdDsZD PuTdZ9OZSxVVUhWMHpvv3ZQYSzFNHvGscaFsXmEYBm VHOtXApdRHFkGBX2BDc6ELDhUMPyUX7RNjNsOPFyWswoZDUeKWKaCEUieh2EIJAtJIZzROQ0WyZoXNQk NAJqZHkfHYHgLDU2BUZ3UJMxBBWgPC6CZdHfYLIjHqh1JfDxNUFyWKHtxw2IPIImKHD4IVI6URRnUMOp UIUzUWzqCMBzTEQrCjh6RTXaXOSpRW4XKpWjPKWzXE J7HNugSYLqWAVzkb4UQDTyOSD3TWs6HANxDOYgCQUtSBuuRTLnOPDhBpKxJELhWEVxYJ3LNvLxRPYfCS O5MUObZEFgCKMpey4GXKUlSLY7Ton9FZMhPMHfWYNmAAxcIAFvPCXvTBZeFPYaNRUrEU1CGrNvWNhtTS SOMgp1BOiuC2x4LZPtHp9JG9Uye4CfLqAvNHJNICqr WK3byjLjMEXcJe8CH1mUVklxDfUeY4GrKJxvSUGoWLI5E6EfJjD5XDPxHJUqOiU3Ta3lJZJyRZUeERYx FOJ7YSD3BSXzONS2TIr6L7Y5QJE9IRxaXjIfKS8ESl5SJhR5XIL4lYDrAo2RAKBrKMGOKtLwVH3PJSk= ID Date Data Source [id number] 09/12/2020 09:03:24 AM T [facility] MR BRAIN WITH AND WITHOUT CONTRAST [id number] FINAL RESULTInterpreted by:JENNIFER Oropeza HEAD WITH AND [...] rce(s) Supporting Document(s) ID Date Data Source [id number] 09/12/2020 08:14:25 AM EDT [facility] Name Value Range Interpretation Code Description Data Negin rce(s) Supporting Document(s) Consultation [facility] KOSPNk6vAwKQKgRt12/JTOowVADkw8TiTManBGr6UJruYWIfE4CbWTY5mT5cIGS9VLkSLlKzYyAgMmVz [facility] [file] ICAgICAgICAgICAgICAgICAgICAgICAgICAgICAgICAgICAgICAgICAgICAgICAgICAgICAgICAgICAg ICAgICAgICAgICAgICAgICANCiAgICAgICAgICAgIC AgICAgICAgICAgICAgICAgICAgICAgICAgICAgICAgICAgICAgICAgICAgICAgICAgICAgICAgICAgIC AgICAgICAgICAgICAgICAgICAgICAgICAgICANCiAgICAgICAgICAgICAgICAgICAgICAgICAgICAgIC AgICAgICAgICAgICAgICAgICAgICAgICAgICAgICAg ICAgICAgICAgICAgICAgICAgICAgICAgICAgICAgICAgICAgICANCiAgICAgICAgICAgICAgICAgICAg ICAgICAgICAgICAgICAgICAgICAgICAgICAgICAgICAgICAgICAgICAgICAgICAgICAgICAgICAgICAg ICAgICAgICAgICAgICAgICAgICANCiAgICAgICAgIC AgICAgICAgICAgICAgICAgICAgICAgICAgICAgICAgICAgICAgICAgICAgICAgICAgICAgICAgICAgIC AgICAgICAgICAgICAgICAgICAgICAgICAgICAgICANCiAgICAgICAgICAgICAgICAgICAgICAgICAgIC AgICAgICAgICAgICAgICAgICAgICAgICAgICAgICAg ICAgICAgICAgICAgICAgICAgICAgICAgICAgICAgICAgICAgICAgICANCiAgICAgICAgICAgICAgICAg ICAgICAgICAgICAgICAgICAgICAgICAgICAgICAgICAgICAgICAgICAgICAgICAgICAgICAgICAgICAg ICAgICAgICAgICAgICAgICAgICAgICANCiAgICAgIC AgICAgICAgICAgICAgICAgICAgICAgICAgICAgICAgICAgICAgICAgICAgICAgICAgICAgICAgICAgIC AgICAgICAgICAgICAgICAgICAgICAgICAgICAgICAgICANCiAgICAgICAgICAgICAgICAgICAgICAgIC AgICAgICAgICAgICAgICAgICAgICAgICAgICAgICAg ICAgICAgICAgICAgICAgICAgICAgICAgICAgICAgICAgICAgICAgICAgICANCiAgICAgICAgICAgICAg ICAgICAgICAgICAgICAgICAgICAgICAgICAgICAgICAgICAgICAgICAgICAgICAgICAgICAgICAgICAg ICAgICAgICAgICAgICAgICAgICAgICAgICANCjw/eH VoT3hwuXNpqyC6L7qhYv7QHa8EKP3sf9MrUMAgXOrvohMgNigBQeEeNQQoOeyJKet4XZxgTW1BkPKhZ4 OgQ4IrODpbSP0PCSRoEIKjjBZqBQOiGLVhKaO9XQTfDEgaEQ3HoHUvOMnsAHWyYQByIrSiZEOkVEXqAW AmVTNjAMVQKGFzNWJuHrTeGUxbMH5Rh1OsdBV0QGv+ Sf9EIW7yg2JzYFyzQjAeJF5mvr2PGOfBCrJdB9VlmgH6YLR7HKLdIn7ARCRsZJNooTDjDFZdQOLSKjXp Q7FpfU87UBGCVz5+TUbmzkYlXewSHbG8TZHbw2NyATw0KS5AHJVjDEa9vDMrL58hp3MqbLOvWjadDeWw FwPogKKHALZuH0AerAgeEREdUOGfUx1xCT9lCCUvWP XnJwH5KNXEFB4MHWDzLNTiwCEqKJIeWZSBYV3UCKwiRMF4EQXsjfVfdDAePNpjXX8DONUecfMkSjPbQM BSDQo+Xr8OJQ1kz6KuXVqkAMKaOF5jiz6XXGzCZrUdI0O0dCOrU2L1PErzCo7RTGOqNYMaZbQwQTGMOB nmLM2SDK9cmvE8IP3RoAQtZEVcZLIfvCRwUKd0T98q hUEqKGdwHQ5RHMO+Romie+Og7ZCDEyYGKlXUShYyGiSXEQPlCeS2VkC0SYj7BeO0RgDW49lPtrpnRqGMzi CG7WCT3kVJYhUXSDVH3KlZBlgX0imtHrWwUaUSGBZiMyT41pyUIlUPLeAYRsGRBuUx8JLLFdE5YaaoRh kXkbvgHnKVHuDDLFLR8QIVvsrnPrbBPldJwhTF94cJ wlXQ0UXk8QLjCaTV8yiz3SoRXrAa8VNOWtAn3KRCXiGZSmHYTiFLI6IIZhDxKgAMdaWBChQWDcHUL8MJ AjLFUzRP6VWzFtAEWnUfWdDVAsVUBsNTXnnf1UVVPwDAQmWba0FsQuSAVnUUWpIHzeSZNbRZUdZGE6AO ZgTAQqGS9SCfVlUFIiCRZsDOLkCQEgPZFbdv6FGHSe GFSyIRNxHYQmKCZoAKWtCHwgXJRaJDI7Mzk6DIJdOQCcKV1JFgIaTNGhPBr5OADkTPKoSOGslf6QSOIi AEApCFd8PYKsWFPiBCWfCPhlIHKqXMToZEpvGUWjBGHgYE5JUtWqODGuEUOsNNXaDCWxHMVrkz5MUEVf QLMsVzC6OHIxBDNpWZBhHJxzXMJjPCZ7YVu2XPJxNB PfKW8HUzQdKFRuDMq4CJTsINJnAJNbno8YQKLqETZuVDC5ZBHzVWKyMLXrDZkwJIOfIZN5ENDrZFBaPF LgES6TKbJlIKSgVBm7NYYkDPTiQFQptu2QNYLzOIRsJImfEWJtYGWdSEGtGFqaTNRvWBX8JLV7QBWpYA AzKG5GSwXzQCGgJmNbMLYnGITyAPErqg6ELNWlSJCk WUZ5NtSoQMBoCJFsFOkoJVWtNETvMhP2NZJeHAPxWV2RWcFyWRJaZfO8YLCmTVOcEMMmof9CHAUgJVQc NzXuPfRkBXBmRKCiOJstCHCyPMIoApRlCADaNZUxFP0WYnTjDTFbUcZ0GITtYQOgBXXcfy8FRRJmJSPm GMI8SEAiBQHtLHKqPNxmWPDtTXF5XCs5RCObTHKhTD 6XVqDzOCCrUrB2OTRqMMCeZEFdcq0JBQGcWAWfPPusBUNpOIOkTTCrQLcmTUAvFPH8GVvkDOMsYIYoLP 4QRbXuZLWhYkO2AHBwNADnDPIude2TFOQqWOLvLfc9IqIpFZEmNLZsOGtjNRVzPPK1GBK0TLKeRBEqPA 2JThDpWLEeAzijVVMtMPNgUTWduw9SePWrsLceux7X BVjVPh0NtXsyKUF9YNorZv2pbWCfWPEvLXCYLx7VitTgSYWlYECHAGphQDMiTJH4XqTcXHXtPkV1AES1 HJDzTdTlVHIeGfY4GrnwTZReBlW5BaLfOzX2XjWyXqGoOJVnEKEfV5L7TrI5RzHyDoPdBwB+NZ1eHIb+ Aq7Jd2QdkyU3moKwIUuzBxQnBk3MLKUBF8EZPs== ID Date Data Source [id number] 09/11/2020 05:05:11 AM EDT [facility] Name Value Range Interpretation Code Description Data Negin [facility](s) Supporting Document(s) Leukocytes [#/volume] in Blood by Automated count 7.3 10*3/uL 4-10 [facility] Erythrocytes [#/volume] in Blood by Automated count 4.81 10*6/uL 4.6- 6.1 [facility] Hemoglobin [Mass/volume] in Blood 15.4 g/dL 13.5-18 [facility] Hematocrit [Volume Fraction] of Blood by Automated count 44.5 % 4 1-53 [facility] Erythrocyte mean corpuscular volume [Entitic volume] by Auto mated count 92.4 fL 80-96 [facility] Erythrocyte mean corpuscular hemoglobin [Entitic mass] by Automated count 32.0 pg 27-33 [facility] Erythrocyte mean corpuscular hemoglobin concentration [Mass/volume] by Automated count 34.7 g/dL 32.0-36.0 [facility] Erythrocyte distribution width [Ratio] by Automated count 13.1 % 11.5-14.5 [facility] Platelets [#/volume] in Blood by Automated count 181 10*3/uL 150-400 [facility] Differential cell count method - Blood [facility] Neutrophils/100 leukocytes in Blood by Automated count 65 % [facility] Lymphocytes/100 leukocytes in Blood by Automated count 20 % [facility] Monocytes/100 leukocytes in Blood by Automated count 12 % [facility] Eosinophils/100 leukocytes in Blood by Automated count 3 % [facility] Basophils/100 leukocytes in Blood by Automated count 0 % [facility] Neutrophils [#/volume] in Blood by Automated count 4.82 10*3/uL 1.8-7 .0 [facility] Lymphocytes [#/volume] in Blood by Automated count 1.46 10*3/uL 1.2-4 .0 [facility] Monocytes [#/volume] in Blood by Automated count 0.85 10*3/uL 0-0.8 H [facility] Eosinophils [#/volume] in Blood by Automated count 0.19 10*3/uL 0-0.5 [facility] Basophils [#/volume] in Blood by Automated count 0.02 10*3/uL 0-0.2 [facility] Nucleated erythrocytes/100 leukocytes [Ratio] in Blood by Automated count 0 /100{WBCs} 0-0 [facility] ID Date Data Source [id number] 09/11/2020 05:21:43 AM EDT [facility] Name Value Range Interpretation Code Description Data Negin rce(s) Supporting Document(s) Albumin [Mass/volume] in Serum or Plasma by Bromocresol green (BCG) dye binding method 3.8 g/dL 3.5-5.2 [facility] al Bilirubin.total [Mass/volume] in Serum or Plasma 0.8 mg/dL <1.2 [facility] Calcium [Mass/volume] in Serum or Plasma 8.7 mg/dL 8.8-10.2 L [facility] Chloride [Moles/volume] in Serum or Plasma 99 mmol/L 98-107 [facility] Creatinine [Mass/volume] in Serum or Plasma 0.72 mg/dL 0.70-1.20 [facility] Glucose [Mass/volume] in Serum or Plasma 99 mg/dL 70-140 [facility] Alkaline phosphatase [Enzymatic activity/volume] in Serum or Plasma 105 U/L 40-129 [facility] Potassium [Moles/volume] in Serum or Plasma 3.9 mmol/L 3.4-5.1 [facility] Protein [Mass/volume] in Serum or Plasma 6.4 g/dL 6.4-8.3 [facility] Sodium [Moles/volume] in Serum or Plasma 135 mmol/L 136-145 L [facility] Aspartate aminotransferase [Enzymatic activity/volume] in Serum or Plasma 16 U/L <40 [facility] Urea nitrogen [Mass/volume] in Serum or Plasma 8 mg/dL 8-23 [facility] Osmolality of Serum or Plasma by calculation 278 mosm/kg 275-300 [facility] Creatinine/Urea nitrogen [Mass Ratio] in Serum or Plasma 11 [facility] Bicarbonate [Moles/volume] in Serum 26 mmol/L 22-29 [facility] Alanine aminotransferase [Enzymatic activity/volume] in Seru m or Plasma 13 U/L <41 [facility] Anion gap 3 in Serum or Plasma 10 mmol/L 8-15 [facility] Glomerular filtration rate/1.73 sq M pre dicted among non-blacks [Volume Rate/Area] in Serum or Plasma by Creatinine-based formula (MDRD) >6 0 [facility] Glomerular filtration rate/1.73 sq M pre dicted among blacks [Volume Rate/Area] in Serum or Plasma by Creatinine-based formula (MDRD) >60 [facility] ID Date Data Source [id number] 09/10/2020 09:11:37 PM EDT [facility] Name Value Range Interpretation Code Description Data Negin rce(s) Supporting Document(s) 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 [file] H2WqqvX5U2JljnAAYxUUrmLzSzCQ9YUv1OPwH1NKL8iXYiOp4LMkB0HhWREeOnPY4FOSl= ID Date Data Source [id number] 09/10/2020 06:43:45 PM EDT [facility] Name Value Range Interpretation Code Description Data Negin e(s) Supporting Document(s) History and Physical [facility] QTMZAh6kFlPKPoRq93/TPMhmQXMsv1YbDQjnXGy8UPqyMKCqU7BdNSW3zM4cHVS4KSqMFdLlTeEnZpW7 lbm YqGboPKoDqUDJoIqsWMpWpBBytWdxfmCEgFP5ZnFR0JQRmS88sTGRbZCRpR8YgMAYuMNV+Lf5ZNQWljJ KrMC6UEluF1R0rd7oIVo9dwf5FtSwh9seb7u7t9kRuhq7L6WynFJpSqi2qL3iF28imvMJzw/LvNi6J5c zCKpBmX0I0Ny43EfNCFRoLFifvv5UAX/79h+16Duec Uu4ET03Klby9++Ir7VE2T3k8ut+nc1UPjzjkBh2Hk4pn7rsJK8gkXCleJdq7ZE/eMt+55hiOm0tf7Fi/ YEGinKNr6UkV0fIjIZVMIUGUZyqhlRYrVLtqcnQ52eIUfKhfPdYOGfrBdv6MR50f9vvE+CO1gADAw+WT 55DRZUGWYoaQhJwsqHYASQ+SEpIu+jbD1TXGcM3I6U qoXiUxxLXy77glHkNexAmlTzEonLGx7AOrCMmwbMA0lY6iFIqHk7UoMYe9kLoyIokvyJ9D+ldJ19TLzn KbM2vCAzH4xFbOmKbSgFaeqyt+Rx+VPM+ZNM1BKDji7IawL4/P7gygoi5d04eWITbaJ2MFbtCPPtygpx UKeMyYh4NxHQkY33zh7YMJ0iijGaZw7mu46IJC+c+i 77Zt1REFIryM0CG+SewEagqxGg1uosF9qEh53/hm3y6YAaXzckctJ7a7eg6NdTo5bnWCi6XHxhSWVymr Kq5BB863GyJZrtARLVlStXMr5Qoa55JgoRCCZcktwLqr9nGhfZIunltpIy8TV5ChwaVzmNFDj37ryorX CmdZP6ghPq9fNxHwYxAbejeUbnuWlL1nqR31mKYicY a5992kCuDR6/K8+mVmI2sMq5F2FZCRM1FPzcc3YomMpDeXnzbTTu5xoMLPar3LRobnoQGYN0MzA8yCKr kH786K08iBHdoYYJliIIox0wFkmOfhUabaycBvkyV3XMsWEKkw+bibiana/NrfeHeGbOUmd7jz+ctwQPd8kG [file] AgICAgICAgICAgICAgICAgICAgICAgICAgICAgICAg ICAgICAgICAgICAgICAgICAgICAgICAgICAgICANCiAgICAgICAgICAgICAgICAgICAgICAgICAgICAg ICAgICAgICAgICAgICAgICAgICAgICAgICAgICAgICAgICAgICAgICAgICAgICAgICAgICAgICAgICAg ICAgICAgICAgICANCiAgICAgICAgICAgICAgICAgIC AgICAgICAgICAgICAgICAgICAgICAgICAgICAgICAgICAgICAgICAgICAgICAgICAgICAgICAgICAgIC AgICAgICAgICAgICAgICAgICAgICANCiAgICAgICAgICAgICAgICAgICAgICAgICAgICAgICAgICAgIC AgICAgICAgICAgICAgICAgICAgICAgICAgICAgICAg ICAgICAgICAgICAgICAgICAgICAgICAgICAgICAgICANCiAgICAgICAgICAgICAgICAgICAgICAgICAg ICAgICAgICAgICAgICAgICAgICAgICAgICAgICAgICAgICAgICAgICAgICAgICAgICAgICAgICAgICAg ICAgICAgICAgICAgICANCiAgICAgICAgICAgICAgIC AgICAgICAgICAgICAgICAgICAgICAgICAgICAgICAgICAgICAgICAgICAgICAgICAgICAgICAgICAgIC AgICAgICAgICAgICAgICAgICAgICAgICANCiAgICAgICAgICAgICAgICAgICAgICAgICAgICAgICAgIC AgICAgICAgICAgICAgICAgICAgICAgICAgICAgICAg ICAgICAgICAgICAgICAgICAgICAgICAgICAgICAgICAgICANCiAgICAgICAgICAgICAgICAgICAgICAg ICAgICAgICAgICAgICAgICAgICAgICAgICAgICAgICAgICAgICAgICAgICAgICAgICAgICAgICAgICAg ICAgICAgICAgICAgICAgICANCiAgICAgICAgICAgIC AgICAgICAgICAgICAgICAgICAgICAgICAgICAgICAgICAgICAgICAgICAgICAgICAgICAgICAgICAgIC AgICAgICAgICAgICAgICAgICAgICAgICAgICANCiAgICAgICAgICAgICAgICAgICAgICAgICAgICAgIC AgICAgICAgICAgICAgICAgICAgICAgICAgICAgICAg ICAgICAgICAgICAgICAgICAgICAgICAgICAgICAgICAgICAgICANCjw/fOMpO3hoeCNeneP5H3jwKu4C Wx7DKT6qa9WvYLCgJBbugcCcCzdEVxVtDNPyZvqPZyj9QPipBX8ReFHjU9EmL3YmVNscQW4NELBsWOMf bXSvNKKkHOMwZaP5EBWtGEkgBG8TyECvFMwmRFSrYF WqByKuLDAsNE7FMNGoG176ywSqHp2XVj9CUtWdTD9zsy6BYottSESsDesOBwu3RYzbFO0LkKTwuVPsAE AjUMIHOtAgO6kmm7RkFrvhLQQKXNzkNG7Vr4AuwJDlHMp+Fl4BQS7yr2NeGElqYEKzOL6wyx3OHGsJRw BcO4TzeCvgPZiwBGBrzMRQuJYgVN38WXFkWWCKMWYv hTF7MaG1ZcRzNsWxQYy6RXKnDJ5uVNwhMC2NXFH8LVnzLSJiWJGnH0wBLgGnPWAkABHyhKskBY6OFuNy Q9VvmhHhvIDoAzXpUUHJHa2+PZrpuzFjPlkCTeY7VARqr9KyAIl4TG7TKIXvZPdlOT6JCDTqlP7xBYla SP9GGhMrFXRhUPDUEvNeT55jkXLgOOz3Q0MuFfIaRJ VkRmlsZXMgPDwvTmFtZXMgWyBdDQogID4+ID4+NBzmVU4KUMilrwJdDWWtEi1IPJXlQWNyMR6wJETmFF KjT9F8ePywQLVCDaAxL6yhhnusSQ3bULHkT296hUiibqAmZJY7YPNbZl7FSLUcECM4ZOLkfWWwVmEiXD SYXBdzGK3PxBBwAAK6qB0vZBgmQWVkQDKeN5cGOkRw dWxdPE07rYnigqZgaXUbPTd+Id4MTB0sh3RvOXy4orZwMLqjXSZbCHkfVIBeLZMxQPOmWCD9XLL2ESAA XuLlMTMyNVWoVLtlRXJwFMAluh9UOFKcJNQhNlE4OwEkJAMkGKViFVewOWLtCNZ8DNU8AQBmPUFaEN5J GaHyEZHqAOYgJVqzFVRgPPTpxw7DRMZvMXUbGhLoSh UlJNLdONGoFRvaPPLaGVWxZyD0XUMdEYAoSG3IHvEgEYDeOKQiBTElLMSbBHUvcd4ECLGfYBVvPKB1SA DwYLEgYQCpCOydIXXrHUP1XYZhXYTmTIVgQR6TMcOiQFYkJNK4UgfnCCVdBGCtdq7ZESXzANWkRnlnWZ YfUDMwWDGyBKwoFRRsWSB9Zzt3TUNhRWQcGM2FLoSs JZZcFMj7XNGfVSDqQNWzzq2GMXPjYMXaBBX2ZOYsIICeSXUfLBlnOVIlSZB8DBJ8OZSgQLNtZJ3LMjXb VUQiGHdeUyUqPTAdIYVmwk7KQQSiYNHeMFYnQEOrRBIjIQGbDIqtXHUlMVFrREx3CAStTWGxWB8EYcHi HCLzNQB0HjYfEHIeZBVxbw4CCUNfJJAaNNb4MFUqPP KwUSItGAfbABRrJAZkTrPqCHVpJEIpKL6PGgIxOPUcTlR9WiXlHTJpIZJevu1YYAHlJKZcCna2STRrZC WfHDXfWVqpFYPmUEOqDIG6TTSqHYKuWJ0NQsVwMODdAiCqORLmPUStEBDbkf6WOYXvZXAeTfE0BUXtAQ LjRJYpCCwlIJNgJAH7DHBxQJGyZFGmKZ2VPsSsJIKg VhXuTGCqPXVtSIMjao3KOPNuPAKgDXKeGgFrQCFeQNEnMAh2rfLwgBPsOFh2GW6YN4XunhYtHgYUOt7H x834WVT7BQOxUf2LL8zoZk9wEFPiZXARKf3KKEk4P3O6JxP3OgorZmZ3QEB8GaY4YhSsUKIjKAGzAzEg Mjc+LVrrXcUiJOL1PSGdDQBcJgS1PIKsDAK1GcC6J6 GrZ1LlKw6vPWDJJx9+WYxexJQvwDunIEODOcP8XSsjQWtpXVTRIw1U ID Date Data Source [id number] 09/10/2020 06:13:38 PM EDT [facility] Name Value Range Interpretation Code Description Data Negin rce(s) Supporting Document(s) Consultation [facility] QQHUXe5gWtWDZhKl37/WLJceXFXis0ZaBBupWRd1RAnuGVFjH6HyHHB3yW4uQZK0TZbXNaBhNiRyCbS0 lbm [file] 1i6e/1TeQPpb/Epm84kX6C1F1c5fOpq6X9VNr4NUUHRfFvRCDDLi3jONK+SCkO2lu7xdKbu4/hN5A+mri technologist [file] VRjKexOkdZgjnU5+7TwR/Pe0MeP++XWLXO/Miguel Angel+Q3m [file] AgICAgICAgICAgICAgICAgICAgICAgICAgICAgICAgICAgICAgICAgICAgICAgICAgICAgICAgICAgIC AgICAgICAgICAgICAgICAgICAgICAgICAgDQogICAgICAgICAgICAgICAgICAgICAgICAgICAgICAgIC AgICAgICAgICAgICAgICAgICAgICAgICAgICAgICAg ICAgICAgICAgICAgICAgICAgICAgICAgICAgICAgICAgICAgDQogICAgICAgICAgICAgICAgICAgICAg ICAgICAgICAgICAgICAgICAgICAgICAgICAgICAgICAgICAgICAgICAgICAgICAgICAgICAgICAgICAg ICAgICAgICAgICAgICAgICAgDQogICAgICAgICAgIC AgICAgICAgICAgICAgICAgICAgICAgICAgICAgICAgICAgICAgICAgICAgICAgICAgICAgICAgICAgIC AgICAgICAgICAgICAgICAgICAgICAgICAgICAgDQogICAgICAgICAgICAgICAgICAgICAgICAgICAgIC AgICAgICAgICAgICAgICAgICAgICAgICAgICAgICAg ICAgICAgICAgICAgICAgICAgICAgICAgICAgICAgICAgICAgICAgDQogICAgICAgICAgICAgICAgICAg ICAgICAgICAgICAgICAgICAgICAgICAgICAgICAgICAgICAgICAgICAgICAgICAgICAgICAgICAgICAg ICAgICAgICAgICAgICAgICAgICAgDQogICAgICAgIC AgICAgICAgICAgICAgICAgICAgICAgICAgICAgICAgICAgICAgICAgICAgICAgICAgICAgICAgICAgIC AgICAgICAgICAgICAgICAgICAgICAgICAgICAgICAgDQogICAgICAgICAgICAgICAgICAgICAgICAgIC AgICAgICAgICAgICAgICAgICAgICAgICAgICAgICAg ICAgICAgICAgICAgICAgICAgICAgICAgICAgICAgICAgICAgICAgICAgDQogICAgICAgICAgICAgICAg ICAgICAgICAgICAgICAgICAgICAgICAgICAgICAgICAgICAgICAgICAgICAgICAgICAgICAgICAgICAg ICAgICAgICAgICAgICAgICAgICAgICAgDQogICAgIC AgICAgICAgICAgICAgICAgICAgICAgICAgICAgICAgICAgICAgICAgICAgICAgICAgICAgICAgICAgIC AqIMZcWNDmPLGxBOZdAFXxFEFwWNAzPLNyWXDmUJSgMOOgNLr0E0ffCJYcKKMpTU7eWBs4Fr7+DQoNCm AsFZX2srCrcS5EFE9uz9EqDJrqJSZwk7EqPSg1HU1D ZVMbWDoaBT3QSAzgzn4YNUHxLGXdfWZEx1liNbEeEAO6GULdDwfrSG9VXHWcE4fondHpTIZaNQOCOLto DPPPJWjdIZTAQADvIKFsBaCbSAazDW0Cr2FfzHW8PVu+Nw7UBJ3la3LfLSrzKDMlLD6vvv8SVWhCOgDc I8LlblF3DRD3GEIdXh2CNGWpNMDvgVTlFAMyPOUPMt TqT6ZpaW86HADQUe9+DGxxahQuWycPFaQ9UBSll5FmVQe3EQ8QAXTbFNq9sJXeN73by0HbkKPuZokoSj DvqDWIlnZgcxdeNBFnHWTbRj4kMO2hVGGsBREaLbL4QXMDPH7LKXTtZNGleXXbRIOzWIGMFM0IHLsvLT C0GRMpmpGosQPvTBpcOG8MXEHvhoRhXkOsZIHTBEr+ Bl9EQT3sh0UbANegJsExZU6bva2KGCpDIyNvL3Q7uWGfC9C6HDvaPt6YKBAwOLUrNgWmQKBJRTniUL3S CG1vkgQ0QU4DnIImZGMtUPVsdKGvMEs7P44zePNnQJbgBN6EHUQ+Romie+Yy3YJGAyZEXaHTGcPtZgMMTV ErWhM0KxN7NUu4DgP9VjRV89aSbfdpRrNIpoNP9MWO 1gJZHuLBGJJQ4IsTGkyO6warGvILXlLSKBVrPrX41geHAqIWAtBEIyETTjQj7VJOVaY4RjjuImrXjbch CcRCWqPGNYNW2ZUVijdmZpzKOcvOgaPB41qNbqHD8KDl2DDmRxKT4vei5DnTLyIw3XPIMiYa3FVKSsTM UuNSDbQCG1WGQhMjEhBXhrZSMjITKuVIQ8ZDEwRQAi SF6TJpQaLITsTuI1DYtnKJHvJUQkyv6BWBQuIVMiBJRoFgJbMERxHMGhEDdwOODwGLUkLZF4IXRxUVVo ET9IZhFzVYSsBIG5BZtsIVElIOOafc7RXUFpKLGsLnp9XkBmVJGzSMMaRRoiTJKtABB1DCG0XAXsWKHp CT2KTiIvZUDmRKrbCwJpKVAgWFZfda4BFZSxIDHrPD EnAWBxRPGoGZNyMScePOUqBVMyTkQhNCSfRUJvMC3OSaMyRRBfKYGsNpIhTJHlXPJwwp9NUZDoUUNySm I0AcJjROIvCSQgAJzxNRTxWXY0UyTtRAXbQIHuRE2ZNdBrNYFfHDR9DdvwTFUpROCqrr1WEEXwACSmWN niCtFlTRXlDQWjTJlzNKReVVW9KbvqADFfVLXwJN8T QwCvCPMgNMI0VMGzOAKySNGxhe0CKKUzCBSbKlZ8OKXqIVQgJUKwILxdVUBwETH4NAYdHYJyBBYpGB3O EvOyZIIeRYaqKyIbNEJxIBIeoj7HFDGcIYPqHyGxAWBxGZMwWJSoTMjyZHDjJVB8YrsqDIQwVLYoXX9E XpSdMVVwCMq5LlulWJLsWATmtg0WMOKaDXSsJNx0LW FmEWSyMGZeLWohYIFuPVGbSBv0ELYiLDEzMX2YZiSjCQSvRmV7TnBcLUCgITFneo0KIIKmUDIzBTznKe UjLCAfREOqRCcqLKCsQDAlQPltVOPvLIZdGG7HGoYlODOjDzCiPoehALSsTYVute5JQBAqVLIjCkT3XR PmLOXlLRGrDSzmYMExOXLsZlV0ZQPeYASqAZ1WQiVq POHrBnC0EungSQGyLJMenu8SAYIqRDByOqi9OtYiZNWlNIMbLAluKJIsYAJ4DjDrZTHqZQBkHF5MMqVa MARgLtJ7ROZrEUXqJMQwmw5ZIXZdUMUsWSP5ZdJfXBPlCTYvZDl4vyBprFQtFNd8TK6IQ4VzuzIjVhfR Sd2Uc458GSN4QPEtLv6AC2vvQh4kEOGrINXQHf5ZDZ i6SlHxB2DiSzI8IYItONLqJoefHZYcROqxQor3VsEoNRH+TDtiAGWkYGRbDhi1XVSmRTXaGPR7TTDkU8 UdGBFvSjX0Ro8dRBIQHu3+JWlwtYLfxNksKMSZYoP2Zuw3SLjdLSQJDo1D ID Date Data Source [id number] 09/10/2020 03:36:39 PM [facility] CT THORAX WITH CONTRAST [id number] RESUL TInterpreted by:Raz Blanc, MDPROCEDURE INFORMATION: Exam: [...] rce(s) Supporting Document(s) ID Date Data Source [id number] 09/10/2020 04:14:35 AM [facility] Name Value Range Interpretation Code Description Data [facility] rce(s) Supporting Document(s) Leukocytes [#/volume] in Blood by Automated count 7.5 10*3/uL 4-10 [facility] Erythrocytes [#/volume] in Blood by Automated count 4.98 10*6/uL 4.6- 6.1 [facility] Hemoglobin [Mass/volume] in Blood 15.9 g/dL 13.5-18 [facility] Hematocrit [Volume Fraction] of Blood by Automated count 46.4 % 4 1-53 [facility] Erythrocyte mean corpuscular volume [Entitic volume] by Auto mated count 93.1 fL 80-96 [facility] Erythrocyte mean corpuscular hemoglobin [Entitic mass] by Automated count 32.0 pg 27-33 [facility] Erythrocyte mean corpuscular hemoglobin concentration [Mass/volume] by Automated count 34.4 g/dL 32.0-36.[facility] width [Ratio] by Automated count 13.2 % 11.5-14.5 [facility] Platelets [#/volume] in Blood by Automated count 189 10*3/uL 150-400 [facility] Differential cell count method - Blood [facility] Neutrophils/100 leukocytes in Blood by Automated count 67 % [facility] Lymphocytes/100 leukocytes in Blood by Automated count 20 % [facility] Monocytes/100 leukocytes in Blood by Automated count 11 % [facility] Eosinophils/100 leukocytes in Blood by Automated count 2 % [facility] Basophils/100 leukocytes in Blood by Automated count 0 % [facility] Neutrophils [#/volume] in Blood by Automated count 4.99 10*3/uL 1.8-7 .0 [facility] Lymphocytes [#/volume] in Blood by Automated count 1.49 10*3/uL 1.2-4 .0 [facility] Monocytes [#/volume] in Blood by Automated count 0.83 10*3/uL 0-0.8 H [facility] Eosinophils [#/volume] in Blood by Automated count 0.16 10*3/uL 0-0.5 [facility] Basophils [#/volume] in Blood by Automated count 0.03 10*3/uL 0-0.2 [facility] Nucleated erythrocytes/100 leukocytes [Ratio] in Blood by Automated count 0 /100{WBCs} 0-0 [facility] ID Date Data Source [id number] 09/10/2020 04:36:27 AM EDT [facility] Name Value Range Interpretation Code Description Data Negin rce(s) Supporting Document(s) Albumin [Mass/volume] in Serum or Plasma by Bromocresol green (BCG) dye binding method 3.9 g/dL 3.5-5.2 [facility] al Bilirubin.total [Mass/volume] in Serum or Plasma 0.9 mg/dL <1.2 [facility] Calcium [Mass/volume] in Serum or Plasma 9.0 mg/dL 8.8-10.2 [facility] Chloride [Moles/volume] in Serum or Plasma 97 mmol/L 98-107 L [facility] Creatinine [Mass/volume] in Serum or Plasma 0.76 mg/dL 0.70-1.20 [facility] Glucose [Mass/volume] in Serum or Plasma 88 mg/dL 70-140 [facility] Alkaline phosphatase [Enzymatic activity/volume] in Serum or Plasma 110 U/L 40-129 [facility] Potassium [Moles/volume] in Serum or Plasma 3.9 mmol/L 3.4-5.1 [facility] Protein [Mass/volume] in Serum or Plasma 6.6 g/dL 6.4-8.3 [facility] Sodium [Moles/volume] in Serum or Plasma 134 mmol/L 136-145 L [facility] Aspartate aminotransferase [Enzymatic activity/volume] in Serum or Plasma 16 U/L <40 [facility] Urea nitrogen [Mass/volume] in Serum or Plasma 12 mg/dL 8-23 [facility] Osmolality of Serum or Plasma by calculation 277 mosm/kg 275-300 [facility] Creatinine/Urea nitrogen [Mass Ratio] in Serum or Plasma 16 [facility] Bicarbonate [Moles/volume] in Serum 23 mmol/L 22-29 [facility] Alanine aminotransferase [Enzymatic activity/volume] in Seru m or Plasma 12 U/L <41 [facility] Anion gap 3 in Serum or Plasma 14 mmol/L 8-15 [facility] Glomerular filtration rate/1.73 sq M pre dicted among non-blacks [Volume Rate/Area] in Serum or Plasma by Creatinine-based formula (MDRD) >6 0 [facility] Glomerular filtration rate/1.73 sq M pre dicted among blacks [Volume Rate/Area] in Serum or Plasma by Creatinine-based formula (MDRD) >60 [facility] ID Date Data Source [id number] 09/13/2020 09:39:00 PM EDT [facility] Surgical Pathology Report See Addendum B Ugo: DAVION RENNERMRN: [id number] Number: [id number] Date: 09/10/2020 00:00Received Date: 09/12/2020 10:49Physician(s): GILDA BLAKE MD OZDEN, NURI, MDSpecimen(s) ReceivedA: Esophageal massClinical HistoryMass in the gastrohepatic ligament.Addendum 09/20/2020 RESULTS OF IMMUNOHISTOCHEMICAL ANALYSIS: This case was sent to [facility] in [place], [place] for PD- S3nfbtlww (KEYTRUDA) testing and the results are as follows:TEST:Marker Result DescriptionPD-L1 (KEYTRUDA) 25 Expression Reference Range:CPS= Combined positive pexxx=591 x (PD-L1 reactive tumor cells +tumor-associated lymphocytes + macrophages)/(total number of viable tumorcells)CPS <1 = No expressionCPS>1 = ExpressionPD-L1 22C3 pharmaDx(TM) is FDA approved for use in the detection of PD-L1in formalin-fixed paraffin-embedded adenocarcinoma using the EnVision FLEXvisualization system on [employer] Link 48. The assay is indicated as corey in identifying gastric or gastroesophageal junction adenocarcinomapatients for treatment with KEYTRUDA(R) (pembrolizumab). PD-L1 47J9amuegCz(TM) is a trademark of [employer], an [employer]pws Addendum Electronically Signed By: Joe Boyd M.D. [...] cm in greatest dimension. Totallysubmitted in one cassette.QAWALANGIN\\Microscopic DescriptionSections show tumor cells growing in sheets, [...] developed and their performance characteristics determined by [facility] Pathology department. They have not been cleared or approved by the USFood and Drug Administration. The FDA has determine d that such clearanceor approval is not necessary. Name Value Range Interpretation Code Description Data Negin rce(s) Supporting Document(s) ID Date Data Source [id number] 09/09/2020 05:38:54 PM [facility] Name Value Range Interpretation Code Description Data [facility](s) Supporting Document(s) [facility] DOWSZl2gKcJCLgVa97/RGHbbIZUbf5AnFEkbXAw7OPlaKOSfH4ZkNAH7yD3uIPY7OBfTQgUvDbMnXgH4 [facility] [file] IYAnVZTzWwGwNQj0DfBlIEOmFGo0VhG2WeK2BiAm NW9YXb2CJrW0UAN6hBMuXu3OLTR1LIYQYhNhFC9WSGq= ID Date Data Source [id number] 09/09/2020 06:34:54 AM EDT [facility] Name Value Range Interpretation Code Description Data Negin [facility](s) Supporting Document(s) History and Physical [facility] SJAWTr5fXmZLFeSn99/LYFixCAJya8FoQHfpFSy4DGhzDSDoC7TsDHD1qS1uWML0APoPNkJqEzRbUpG8 lbm [file] Ijsr85Gnufy2D2eFX9CCYDsjVR+mri technologist/jxos6gBGC0Pq [file] ICAgICAgICAgICAgICAgICAgICAgICAgICAgICAgICAgICAgICAgICAgICAgICAgICAgICAgICAgICAg ICAgICAgICAgICAgICAgDQogICAgICAgICAgICAgIC AgICAgICAgICAgICAgICAgICAgICAgICAgICAgICAgICAgICAgICAgICAgICAgICAgICAgICAgICAgIC AgICAgICAgICAgICAgICAgICAgICAgICAgDQogICAgICAgICAgICAgICAgICAgICAgICAgICAgICAgIC AgICAgICAgICAgICAgICAgICAgICAgICAgICAgICAg ICAgICAgICAgICAgICAgICAgICAgICAgICAgICAgICAgICAgDQogICAgICAgICAgICAgICAgICAgICAg ICAgICAgICAgICAgICAgICAgICAgICAgICAgICAgICAgICAgICAgICAgICAgICAgICAgICAgICAgICAg ICAgICAgICAgICAgICAgICAgDQogICAgICAgICAgIC AgICAgICAgICAgICAgICAgICAgICAgICAgICAgICAgICAgICAgICAgICAgICAgICAgICAgICAgICAgIC AgICAgICAgICAgICAgICAgICAgICAgICAgICAgDQogICAgICAgICAgICAgICAgICAgICAgICAgICAgIC AgICAgICAgICAgICAgICAgICAgICAgICAgICAgICAg ICAgICAgICAgICAgICAgICAgICAgICAgICAgICAgICAgICAgICAgDQogICAgICAgICAgICAgICAgICAg ICAgICAgICAgICAgICAgICAgICAgICAgICAgICAgICAgICAgICAgICAgICAgICAgICAgICAgICAgICAg ICAgICAgICAgICAgICAgICAgICAgDQogICAgICAgIC AgICAgICAgICAgICAgICAgICAgICAgICAgICAgICAgICAgICAgICAgICAgICAgICAgICAgICAgICAgIC AgICAgICAgICAgICAgICAgICAgICAgICAgICAgICAgDQogICAgICAgICAgICAgICAgICAgICAgICAgIC AgICAgICAgICAgICAgICAgICAgICAgICAgICAgICAg ICAgICAgICAgICAgICAgICAgICAgICAgICAgICAgICAgICAgICAgICAgDQogICAgICAgICAgICAgICAg ICAgICAgICAgICAgICAgICAgICAgICAgICAgICAgICAgICAgICAgICAgICAgICAgICAgICAgICAgICAg QAAyQPEgVIJqZTWuNMInBKCvTKPwVNMuMXe0M9suVB YzUVDeQZ7sOMi5Bw4+MWwIQwOaWDL8apJyiR0YFF5xb4LcZTjwIKFak6QiAVz1GP3AVRZzOCfjWP8MYL epli0RMJOgBYGujSGTh2irFgTtERE7OPTnFninCT4YHHBaW1ghurQrWJAeONDHGKjmZYHGTKsnLBUQBY BoMDIbZkCjUfQyACTtGH7RHCFjP331ipVhZV8SKi1B EzKwQT9iug4XOxFuSQIoGakUJij5GZwcFC2WfGLgyETtBwTmGFOKPlGaS5vpc9CnKtexSWUATOqlYU5W d4StgYEdPIj+Uu9KSJ8ko1TcGBmtCvHeML1wht4GQTdVNcLpL4AckKklTAzuPOZhiRDYAN8bGLvvLQQj GMJiMFKMDLRgySH6PkQ0DfWwCzHoWPN7GWwiYS6oDM cvWB1FMKY0FDirOTTyVPLdT0sSRkFgMIMyFZVgkRvpOL3HBvRmF9HoalEnrUPvRtFcQMSZBs9+DQplbm NqMxnPGeG2HEZbb0DmZGs3IP2ZQCQmKQwwIH0CUJSdqI9iGLreUG9XVlVkHVJnYMCPJqJjR20vjYCtCZ w2S3TmOdTbFVBtWchmMRDuZDccZjIeIIBmAbGpLNsk ID4+ID4+KSzqLJ0MQYcfluNjUOYcXn1GBJFwYMTfPD0rBIUjJGUhV1S7vMlgBCBTWnKzB4ocibqoTP7z CTGgS965cThezaMtKNR7EFFfRn9OOLLkTTO0TWRomTYtQvYwXRSILFlzEW6JxVAhZDQ2aM4kMNvlBIFl LGNwV1uCMfIuhUpsOU91gYpibzCjzYNzAEc+Pg0KZW 1tj4TbFTz4zxHuTGlyMVZ9NSqeCEScWJWyBNEcCYR8TZQ5TFUCAzWfKJJiJAFxIJxmJLNyHOLajc3EYL ZdZFHeYFZ2IZXkZOHhETGyQPijLMXuIAO1JMPbBGKsJUThUE7RAuPvKXTnRTWePVbiCNGjXKZhgg7VSR BiTYGfLuEhAaJuZTBxTKYrQAbqWQLgXYFfWfZ3YCFw JSLnPJ8SOzJbUYOnCXa6NhKfGKGhQIEkml0BSQJjDQIuCdzwYtIvAUIuERHeUEyiSUPuFHYsKEMrCFJo YUAuNR6TSmHuDVZfKWAgHdWuEDXpYWIvlh9FRHUlURTlMuu6VxKjFQCxPVXpLWovMSKuQEB4JPl0FXBx FJXzFR6GOiQeAJMzQKY8XpZmHVXyYDBafa1NBYMyAO DmBmA6VxCiCYPxMHQjFFxfAYWfGOK4LUN9QECiQCVsJX5LHyLhMLYdWZsnKzQqXDKoHLEqoe1BYCNbKI JhGhXmDaDiEGTnPZXuEKssZCWlCWX3Xgk8JEAkLVJrZA6ZHtErMZOlRZg6IstiSAGeULBuur4BBTNqKN NpKQf4DnNzWDYhUKXhFKgkWKPnLUP4UtZ6INAeSAAs KL5IZuNsJQDmPEz1HtkvGMRnKZAkjq5FZYEbTFWlLYBbTCQeBSFvXNDjFFodKDQcNDHbLJb4CLErKRZz WP6LWlNcCSXlSeOgMiKkOWOmDBCags6HQIGuFVSfEJD0AGGoXLLpLSYgWOmlNHJsPOYgBMAtCAPnKHJb AF2ZDyQbYDLbOfFjIWjpYFZlYIVebl2UCVQvIBLtMz G5IsUuYNViBPGySQipLPQvICIhDcD9FVRsCBDxHQ0LXbItVNNpFuE7YYJdIXFoSNPvad1AWLFiVRQzFZ D9ZxCjWUFdNRHxPLgcNOJzUNB6YAj9RWCrZHNbJN5SFgAwXDJoThOqGpYnKCLiNOPhco5TTEDePUVxQV SbVYUfIZHtXZCqPJejQIDuRBA1DLf1AAMvWGXkBV0V KpUqHAEgVnnaDORtMNMeMGZtdv9SWUVpMHWaXlV7VlOnZUYuUUBvLVk5icIsbUVbYVj5OX0IS1NhcoVi TeyUKw6Lz714WBR1ZARpFp5ZI6nuZd1sODVzFWAHSz6TAXj7Xge0UbamBNu3C9UjLOQ9MJwoBfSxMYdy EZClHDh2UHf+KNejAab0NHJnWAuwVdM1Dml1BFBbAu QqCZOzITE9MLLiVp9oOUOKVi1+KIycnYInuYpcLFJRKbC1DKI4THaaSPHUFd8O ID Date Data Source [id number] 09/09/2020 07:58:06 AM EDT [facility] Name Value Range Interpretation Code Description Data Negin rce(s) Supporting Document(s) HIV 1+2 Ab+HIV1 p24 Ag [Presence] in Serum or Plasma by Immu noassay Non Reactive [facility] Negative for HIV-1 p24 antigenand HIV-1/ HIV-2 antibodies. Nolaboratory evidence of HIVinfection. ID Date Data Source [id number] 09/09/2020 06:37:49 AM EDT [facility] Name Value Range Interpretation Code Description Data Negin rce(s) Supporting Document(s) Leukocytes [#/volume] in Blood by Automated count 7.9 10*3/uL 4-10 [facility] Erythrocytes [#/volume] in Blood by Automated count 5.13 10*6/uL 4.6- 6.1 [facility] Hemoglobin [Mass/volume] in Blood 16.4 g/dL 13.5-18 [facility] Hematocrit [Volume Fraction] of Blood by Automated count 47.7 % 4 1-53 [facility] Erythrocyte mean corpuscular volume [Entitic volume] by Auto mated count 92.9 fL 80-96 [facility] Erythrocyte mean corpuscular hemoglobin [Entitic mass] by Automated count 31.9 pg 27-33 [facility] Erythrocyte mean corpuscular hemoglobin concentration [Mass/volume] by Automated count 34.3 g/dL [facility].0-[facility] width [Ratio] by Automated count 13.3 % 11.5-14.5 [facility] Platelets [#/volume] in Blood by Automated count 211 10*3/uL 150-400 [facility] Differential cell count method - Blood [facility] Neutrophils/100 leukocytes in Blood by Automated count 71 % [facility] Lymphocytes/100 leukocytes in Blood by Automated count 16 % [facility] Monocytes/100 leukocytes in Blood by Automated count 11 % [facility] Eosinophils/100 leukocytes in Blood by Automated count 2 % [facility] Basophils/100 leukocytes in Blood by Automated count 0 % [facility] Neutrophils [#/volume] in Blood by Automated count 5.71 10*3/uL 1.8-7 .0 [facility] Lymphocytes [#/volume] in Blood by Automated count 1.23 10*3/uL 1.2-4 .0 [facility] Monocytes [#/volume] in Blood by Automated count 0.84 10*3/uL 0-0.8 H [facility] Eosinophils [#/volume] in Blood by Automated count 0.14 10*3/uL 0-0.5 [facility] Basophils [#/volume] in Blood by Automated count 0.03 10*3/uL 0-0.2 [facility] Nucleated erythrocytes/100 leukocytes [Ratio] in Blood by Automated count 0 /100{WBCs} 0-0 [facility] ID Date Data Source [id number] 09/09/2020 06:46:58 AM [facility] Value Range Interpretation Code Description Data Negin rce(s) Supporting Document(s) Prothrombin time (PT) 12.9 s 12.5-14.9 [facility] INR in Platelet poor plasma by Coagulation assay 0.96 [facility] Routine intensity oral anticoagulation I NR is typically 2.0-3.0. Target INR must be clinically individualized. ID Date Data Source [id number] 09/09/2020 06:49:26 AM [facility] Value Range Interpretation Code Description Data Negin rce(s) Supporting Document(s) Erythrocyte sedimentation rate 21 mm/hr <20 H [facility] ID Date Data Source [id number] 09/09/2020 06:58:11 AM [facility] Value Range Interpretation Code Description Data Negin rce(s) Supporting Document(s) Lactate dehydrogenase [Enzymatic activit y/volume] in Serum or Plasma by Lactate to pyruvate reaction 220 U/L 122-225 [facility] ID Date Data Source [id number] 09/09/2020 06:58:11 AM [facility] Value Range Interpretation Code Description Data Negin rce(s) Supporting Document(s) Albumin [Mass/volume] in Serum or Plasma by Bromocresol green (BCG) dye binding method 3.9 g/dL 3.5-5.2 [facility] Bilirubin.total [Mass/volume] in Serum or Plasma 0.7 mg/dL <1.2 [facility] Calcium [Mass/volume] in Serum or Plasma 9.5 mg/dL 8.8-10.2 [facility] Chloride [Moles/volume] in Serum or Plasma 96 mmol/L 98-107 L [facility] Creatinine [Mass/volume] in Serum or Plasma 0.73 mg/dL 0.70-1.20 [facility] Glucose [Mass/volume] in Serum or Plasma 102 mg/dL 70-140 [facility] Alkaline phosphatase [Enzymatic activity/volume] in Serum or Plasma 112 U/L 40-129 [facility] Potassium [Moles/volume] in Serum or Plasma 4.0 mmol/L 3.4-5.1 [facility] Protein [Mass/volume] in Serum or Plasma 6.8 g/dL 6.4-8.3 [facility] Sodium [Moles/volume] in Serum or Plasma 132 mmol/L 136-145 L [facility] Aspartate aminotransferase [Enzymatic activity/volume] in Serum or Plasma 14 U/L <40 [facility] Urea nitrogen [Mass/volume] in Serum or Plasma 8 mg/dL 8-23 [facility] Osmolality of Serum or Plasma by calculation 272 mosm/kg 275-300 L [facility] Creatinine/Urea nitrogen [Mass Ratio] in Serum or Plasma 12 [facility] Bicarbonate [Moles/volume] in Serum 22 mmol/L 22-29 [facility] Alanine aminotransferase [Enzymatic activity/volume] in Seru m or Plasma 13 U/L <41 [facility] Anion gap 3 in Serum or Plasma 14 mmol/L 8-15 [facility] Glomerular filtration rate/1.73 sq M pre dicted among non-blacks [Volume Rate/Area] in Serum or Plasma by Creatinine-based formula (MDRD) >6 0 [facility] Glomerular filtration rate/1.73 sq M pre dicted among blacks [Volume Rate/Area] in Serum or Plasma by Creatinine-based formula (MDRD) >60 [facility] ID Date Data Source [id number] 09/08/2020 08:16:36 PM EDT [facility] Name Value Range Interpretation Code Description Data Negin rce(s) Supporting Document(s) Ammonia [Moles/volume] in Plasma 23 umol/L 16-60 [facility] ID Date Data Source [id number] 09/08/2020 07:06:00 PM EDT [facility] Name Value Range Interpretation Code Description Data Negin rce(s) Supporting Document(s) SARS-CoV-2 RNA 2019 nCoV Real-Time RT-PCR: NOT DETECTED [facility] This lab was ordered by [facility] and reported by [facility]. ID Date Data Source [id number] 09/08/2020 09:33:58 PM EDT [facility] Cmnt XXX-Imp : NoneRespiratory P CR Panel : PCR ResultsMicroorganism XXX Cult : See Labs Tab for 2019 nCoV RT-PCR resultsHAdV DNA QI GEORGE+non-probe : Not DetectedHCoV [id number] Nph QI GEORGE+non-probe : Not DetectedHCoV [id number] Nph QI GEORGE+non-probe : Not [id number] RNA Nph QI GEORGE+non-probe : Not [id number] RNA Upper resp QI GEORGE+probe : Not [...] DNA Nph Q GEORGE+non-probe : Not DetectedB [id number] DNA Nph GEORGE+non-probe : Not Detected Name Value Range Interpretation Code Description Data Negin rce(s) Supporting Document(s) ID Date Data Source [id number] 09/08/2020 09:33:11 PM EDT [facility] Name Value Range Interpretation Code Description Data Negin rce(s) Supporting Document(s) Specimen source [Identifier] of Unspecified specimen [facility] SARS-CoV-2 RNA 2019 nCoV Real-Time RT-PCR: NOT DETECTED [facility] Assay Performed [facility] Patients first test for [facility] 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 [facility] Patient has symptoms related to [facility] When did you start to experience these symptoms [Date and time] [Phen X] [facility] Patient was hospitalized because of this condition [facility] patient was admitted to ICU for [facility] Patient resides in a congregate care setting [facility] status [facility] ID Date Data Source [id number] 09/08/2020 09:45:57 PM EDT [facility] Value Range Interpretation Code Description Data Negin rce(s) Supporting Document(s) Hepatitis C virus Ab [Presence] in Serum or Plasma by Immuno assay Non Reactive [facility] No serological evidence of active infect ion. If recent exposure is suspected, test for HCV RNA. ID Date Data Source [id number] 09/08/2020 05:54:39 PM EDT [facility] Name Value Range Interpretation Code Description Data Negin rce(s) Supporting Document(s) Leukocytes [#/volume] in Blood by Automated count 7.8 10*3/uL 4-10 [facility] Erythrocytes [#/volume] in Blood by Automated count 4.99 10*6/uL 4.6- 6.1 [facility] Hemoglobin [Mass/volume] in Blood 15.9 g/dL 13.5-18 [facility] Hematocrit [Volume Fraction] of Blood by Automated count 46.4 % 4 1-53 [facility] Erythrocyte mean corpuscular volume [Entitic volume] by Auto mated count 92.9 fL 80-96 [facility] Erythrocyte mean corpuscular hemoglobin [Entitic mass] by Automated count 31.9 pg 27-33 [facility] Erythrocyte mean corpuscular hemoglobin concentration [Mass/volume] by Automated count 34.4 g/dL 32.0-36.0 [facility] E[facility]throcyte distribution width [Ratio] by Automated count 13.4 % 11.5-14.5 [facility] Platelets [#/volume] in Blood by Automated count 185 10*3/uL 150-400 [facility] Differential cell count method - Blood [facility] Neutrophils/100 leukocytes in Blood by Automated count 72 % [facility] Lymphocytes/100 leukocytes in Blood by Automated count 14 % [facility] Monocytes/100 leukocytes in Blood by Automated count 12 % [facility] Eosinophils/100 leukocytes in Blood by Automated count 1 % [facility] Basophils/100 leukocytes in Blood by Automated count 1 % [facility] Neutrophils [#/volume] in Blood by Automated count 5.67 10*3/uL 1.8-7 .0 [facility] Lymphocytes [#/volume] in Blood by Automated count 1.07 10*3/uL 1.2-4 .0 L [facility] Monocytes [#/volume] in Blood by Automated count 0.91 10*3/uL 0-0.8 H [facility] Eosinophils [#/volume] in Blood by Automated count 0.10 10*3/uL 0-0.5 [facility] Basophils [#/volume] in Blood by Automated count 0.09 10*3/uL 0-0.2 [facility] Nucleated erythrocytes/100 leukocytes [Ratio] in Blood by Automated count 0 /100{WBCs} 0-0 [facility] ID Date Data Source [id number] 09/08/2020 06:13:53 PM [facility] Value Range Interpretation Code Description Data Negin rce(s) Supporting Document(s) Prothrombin time (PT) 12.9 s 12.5-14.9 [facility] INR in Platelet poor plasma by Coagulation assay 0.97 [facility] Routine intensity oral anticoagulation I NR is typically 2.0-3.0. Target INR must be clinically individualized. ID Date Data Source [id number] 09/08/2020 06:13:53 PM [facility] Value Range Interpretation Code Description Data Negin rce(s) Supporting Document(s) aPTT in Platelet poor plasma by Coagulation assay 28.7 s 24.0-33. 0 [facility] ID Date Data Source [id number] 09/08/2020 06:23:35 PM [facility] Value Range Interpretation Code Description Data Negin rce(s) Supporting Document(s) Albumin [Mass/volume] in Serum or Plasma by Bromocresol green (BCG) dye binding method 3.9 g/dL 3.5-5.2 [facility] Bilirubin.total [Mass/volume] in Serum or Plasma 0.7 mg/dL <1.2 [facility] Bilirubin.direct [Mass/volume] in Serum or Plasma 0.2 mg/dL <0.3 [facility] Alkaline phosphatase [Enzymatic activity/volume] in Serum or Plasma 112 U/L 40-129 [facility] Aspartate aminotransferase [Enzymatic activity/volume] in Serum or Plasma 13 U/L <40 [facility] Alanine aminotransferase [Enzymatic activity/volume] in Seru m or Plasma 13 U/L <41 [facility] Protein [Mass/volume] in Serum or Plasma 6.5 g/dL 6.4-8.3 [facility] ID Date Data Source [id number] 09/08/2020 06:23:35 PM [facility] Value Range Interpretation Code Description Data Negin rce(s) Supporting Document(s) Bicarbonate [Moles/volume] in Serum 24 mmol/L 22-29 [facility] Chloride [Moles/volume] in Serum or Plasma 96 mmol/L 98-107 L [facility] Creatinine [Mass/volume] in Serum or Plasma 0.75 mg/dL 0.70-1.20 [facility] Glucose [Mass/volume] in Serum or Plasma 109 mg/dL 70-140 [facility] Potassium [Moles/volume] in Serum or Plasma 4.3 mmol/L 3.4-5.1 [facility] Sodium [Moles/volume] in Serum or Plasma 132 mmol/L 136-145 L [facility] Urea nitrogen [Mass/volume] in Serum or Plasma 6 mg/dL 8-23 [facility] Anion gap 3 in Serum or Plasma 12 mmol/L 8-15 [facility] Osmolality of Serum or Plasma by calculation 271 mosm/kg 275-300 L [facility] Creatinine/Urea nitrogen [Mass Ratio] in Serum or Plasma 9 [facility] Calcium [Mass/volume] in Serum or Plasma 9.3 mg/dL 8.8-10.2 [facility] Glomerular filtration rate/1.73 sq M pre dicted among non-blacks [Volume Rate/Area] in Serum or Plasma by Creatinine-based formula (MDRD) >6 0 [facility] Glomerular filtration rate/1.73 sq M pre dicted among blacks [Volume Rate/Area] in Serum or Plasma by Creatinine-based formula (MDRD) >60 [facility] ID Date Data Source [id number] 09/08/2020 01:03:00 PM EDT [facility] ([facility]) Name Value Range Interpretation Code Description Data Negin rce(s) Supporting Document(s) Influenza A Amplification Laboratory test result [facility] ([facility]) Negative results do not preclude influen za or RSV virus infection and should not be used as the sole basis for treatment or other patient management decisions. Influenza B Amplification Laboratory test result [facility] ([facility]) Negative results do not preclude influen za or RSV virus infection and should not be used as the sole basis for treatment or other patient management decisions. RSV Amplification Laboratory test result [facility] ([facility]) Negative results do not preclude influen za or RSV virus infection and should not be used as the sole basis for treatment or other patient management decisions. Laboratory test finding (navigational concept) Laboratory test result [facility] ([facility]) A false negative result may occur [...] pathogens. DISCLAIMER: Testing was performed using the [employer] SARS-CoV-2 test. This test was developed and its performance characteristics determined by [employer]. This test has not been FDA cleared [...] or revoked sooner. ID Date Data Source [id number] 09/08/2020 01:03:00 PM EDT [facility] Name Value Range Interpretation Code Description Data Negin rce(s) Supporting Document(s) SARS coronavirus 2 RNA [Presence] in Res piratory specimen by GEORGE with probe detection NEGATIVE [facility] This lab was ordered by [facility] a nd reported by [facility]. ID Date Data Source [id number] 09/08/2020 10:56:00 AM EDT [facility] Name Value Range Interpretation Code Description Data Negin rce(s) Supporting Document(s) Laboratory test finding (navigational concept) 115 mg/dL 70-105 [facility] ([facility]) Laboratory test finding (navigational concept) 50.0 % 38.0-51.0 [facility] ([facility]) Laboratory test finding (navigational concept) 134 meq/L 136-145 [facility] ([facility]) Laboratory test finding (navigational concept) 3.9 meq/L 3.5-5.1 [facility] ([facility]) Laboratory test finding (navigational concept) 95 meq/L 98-109 [facility] ([facility]) Laboratory test finding (navigational concept) 4.7 mg/dL 4.5-5.3 [facility] ([facility]) Laboratory test finding (navigational concept) 6 mg/dL 8-26 [facility] ([facility]) Laboratory test finding (navigational concept) 24.0 MM/L 23.0-27.0 [facility] Laboratory test finding (navigational concept) 0.8 mg/dL 0.6-1.3 [facility] ([facility]) ID Date Data Source [id number] 09/08/2020 10:35:00 AM EDT [facility] Name Value Range Interpretation Code Description Data Negin rce(s) Supporting Document(s) Ast/Sgot 16 U/L 7-37 [facility] ([facility]) Alt/SGPT 21 U/L 12-78 [facility] ([facility]) Alkaline Phosphatase 117 U/L 45-117 [facility] Bilirubin,Direct 0.2 mg/dL 0.0-0.2 [facility] ([facility] Bilirubin,Total 0.7 mg/dL 0.2-1.0 [facility] ([facility] Total Protein 6.7 GM/DL 6.4-8.2 [facility] ([facility]) Albumin 3.5 GM/DL 3.2-5.2 [facility] ([facility]) Albumin/Globulin Ratio 1.1 [facility] ID Date Data Source [id number] 09/08/2020 10:35:00 AM EDT [facility] ([facility] Name Value Range Interpretation Code Description Data Negin rce(s) Supporting Document(s) Lipoprotein lipase [Enzymatic activity/volume] in Serum or Plasm a 78 U/L 73-393 [facility] ([facility]) Lactate [Mass/volume] in Serum or Plasma 1.2 mmol/L 0.4-2.0 [facility] ([facility]) Y/N query for Sepsis Lactate Rule: Y ID Date Data Source [id number] 09/08/2020 10:35:00 AM EDT [facility] ([facility]) Name Value Range Interpretation Code Description Data Negin rce(s) Supporting Document(s) White Blood Count 7.7 10 4.0-10.0 [facility] ([facility]) Red Blood Count 5.43 10 4.30-6.10 [facility] ([facility]) Hemoglobin 16.9 g/dL 13.5-17.5 [facility] Hematocrit 50.0 % 42.0-52.0 [facility] Mean Corpuscular Volume 92.1 fl 80.0-96.0 [facility] ([facility]) Mean Corpuscular HGB Conc 33.8 g/dL 32.0-36.5 [facility] ([facility]) Mean Corpuscular Hemoglobin 31.1 pg 27.0-33.0 [facility] ([facility]) Red Cell Distribution Width 12.2 % 11.5-14.5 [facility] ([facility]) Platelet Count, Automated 198 10 150-450 [facility] ([facility]) Lymph % 13.3 % 24.0-44.0 [facility] Neutrophils % 73.2 % 36.0-66.0 [facility] [place] % 11.1 % 2.0-8.0 [facility] Eos % 1.6 % 0.0-3.0 [facility] Baso % 0.1 % 0.0-1.0 [facility]) Immature Granulocyte % 0.7 % 0-3.0 [facility] ([facility]) Neutrophils # 5.6 10 1.5-8.5 [facility] ([facility]) Nucleated Red Blood Cell % 0.0 % 0-0 [facility] ([facility]) Lymph # 1.0 10 1.5-5.0 [facility]) [place] # 0.9 10 0.0-0.8 [facility] Eos # 0.1 10 0.0-0.5 [facility] Baso # 0.0 10 0.0-0.2 [facility] ID Date Data Source [id number] 08/13/2020 10:51:00 AM EDT [facility] [address] [address] [phone] NAME SEX PT STATUS ACCOUNT NUMBER [facility] ER [id number] ORDERING PHYSICIAN LOCATION MEDICAL RECORD NO. Rush Collins MD ER [id number] ATTENDING PHYSICIAN DATE OF DATE OF EXAM/TIME [...] rce(s) Supporting Document(s) ID Date Data Source [id number] 08/13/2020 10:44:00 AM EDT [facility] [address] [place] [address] [phone] NAME SEX PT STATUS ACCOUNT NUMBER [facility] ER [id number] ORDERING PHYSICIAN LOCATION MEDICAL RECORD NO. Rush Collins MD ER [id number] ATTENDING PHYSICIAN DATE OF DATE OF EXAM/TIME [...] rce(s) Supporting Document(s) ID Date Data Source [id number] 08/13/2020 09:51:00 AM EDT [facility] Name Value Range Interpretation Code Description Data Negin rce(s) Supporting Document(s) Leukocytes [#/volume] in Blood by Automated count 8.4 10*3/uL 4.45-10 .71 N [facility] Erythrocytes [#/volume] in Blood by Automated count 5.36 10*6/uL 4.3- 6.1 N [facility] Hemoglobin [Moles/volume] in Blood 16.9 g/dL 13-18 N [facility] Hematocrit [Volume Fraction] of Blood by Automated count 48.9 % 4 2-52 N [facility] Erythrocyte mean corpuscular volume [Ent itic volume] in Cord blood by Automated count 91 fL 80-96 N [facility] ital Erythrocyte mean corpuscular hemoglobin [Entitic mass] by Au tomated count 32 pg 27-31 Above high normal [facility] Erythrocyte mean corpuscular hemoglobin concentration [Mass/volume] in Cord blood 35 g/dL 33-37 N [facility] ital Erythrocyte distribution width [Entitic volume] by Automated count 12 % 11-15 N [facility] Platelets [#/volume] in Blood by Automated count 193 10*3/uL 130-472 N [facility] Platelet mean volume [Entitic volume] in Blood 9.1 fL 9.1-13.1 N [facility] Neutrophils/100 leukocytes in Blood by Automated count 76.5 % 41- 77 [facility] Neutrophils [#/volume] in Blood by Automated count 6.4 U 1.7-7.6 N [facility] Lymphocytes/100 leukocytes in Blood by Automated count 13.8 % 14-46 Below low normal [facility] Lymphocytes [#/volume] in Blood by Automated count 1.2 U 0.6-4.6 N [facility] Monocytes/100 leukocytes in Blood by Automated count 8.0 % 4-12 N [facility] Monocytes [#/volume] in Blood by Automated count 0.7 U 0.2-1.2 N [facility] Eosinophils/100 leukocytes in Blood by Automated count 0.8 % 0-7 N [facility] Eosinophils [#/volume] in Blood by Automated count 0.1 U 0.0-0.5 N [facility] Basophils/100 leukocytes in Blood by Automated count 0.5 % 0.4-1 .3 N [facility] Basophils [#/volume] in Blood by Automated count 0.0 U 0.0-0.2 N [facility] NUCLEATED RED BLOOD CELL 0 % [facility] NUCLEATED RED BLOOD CELL# 0 U [facility] Immature granulocytes [Presence] in Blood by Automated count 0-2 N [facility] Immature granulocytes [#/volume] in Blood by Automated count 0.0 U 0-0.1 N [facility] Manual Differential panel - Blood NO [facility] ID Date Data Source [id number] 08/13/2020 10:06:00 AM EDT [facility] Name Value Range Interpretation Code Description Data Negin rce(s) Supporting Document(s) Urea nitrogen [Mass/volume] in Serum or Plasma 6 mg/dL 9-23 Below low normal [facility] Sodium [Moles/volume] in Serum or Plasma 134 mmol/L 132-146 N [facility] Potassium [Moles/volume] in Serum or Plasma 4.4 mmol/L 3.5-5.5 N [facility] Chloride [Moles/volume] in Serum or Plasma 104 mmol/L 99-109 N [facility] Carbon dioxide, total [Moles/volume] in Serum or Plasma 28 mmol/L 20 -31 N [facility] Anion gap in Serum or Plasma 6 mmol/L 8-16 Below low normal [facility] Glucose [Mass/volume] in Serum or Plasma 111 mg/dL 74-106 Above high normal [facility] Creatinine 0.8 mg/dL 0.5-1.1 N [facility] Glomerular filtration rate/1.73 sq M.pre dicted [Volume Rate/Area] in Serum or Plasma Greater Than 60 ABOVE 60 [facility] Alanine aminotransferase [Enzymatic acti vity/volume] in Serum or Plasma by With P-5'-P 17 U/L 10-49 N [facility] ital Aspartate aminotransferase [Enzymatic ac tivity/volume] in Serum or Plasma by With P-5'-P 8 U/L 0-33 N [facility] pital Alkaline phosphatase [Enzymatic activity/volume] in Serum or Plasma 114 U/L 45-129 N [facility] Calcium [Mass/volume] in Serum or Plasma 9.0 mg/dL 8.5-10.1 [facility] Bilirubin.total [Mass/volume] in Serum or Plasma 0.7 mg/dL 0.3-1.2 [facility] Albumin [Mass/volume] in Serum or Plasma by Bromocresol purple (BCP) dye binding method 3.7 g/dL 3.2-4.8 N [facility] ital Protein [Mass/volume] in Serum or Plasma 7.2 g/dL 5.7-8.2 [facility] ID Date Data Source [id number] 08/18/2020 07:32:00 PM EDT [facility] Name Value Range Interpretation Code Description Data Negin rce(s) Supporting Document(s) Varicella zoster virus IgM Ab [Units/volume] in Serum by Imm unoassay <=0.90 <=0.90 [facility] < or = 0.90 Negative 0.91 - [...] intwo or more weeks.THIS TEST WAS PERFORMED AT:[id number] [place] [id number] CORTEZ MD,PHD ID Date Data Source [id number] 08/13/2020 09:51:00 AM EDT [facility] Name Value Range Interpretation Code Description Data Negin rce(s) Supporting Document(s) Erythrocyte sedimentation rate by Westergren method 1 mm/hr 0-20 N [facility] @Reenter manual test result: 1@by Angela naidu at 08/13/20 0944. ID Date Data Source [id number] 08/13/2020 10:06:00 AM EDT [facility] Name Value Range Interpretation Code Description Data Negin rce(s) Supporting Document(s) C reactive protein [Mass/volume] in Serum or Plasma Less Than 2.9 0.0 -5.0 N [facility] @Report as less than lower limit ID Date Data Source [id number] 08/18/2020 07:32:00 PM EDT [facility] Name Value Range Interpretation Code Description Data Negin rce(s) Supporting Document(s) Varicella zoster virus IgG Ab [Units/volume] in Serum by Immunoassay 1888.00 [facility] Index Interpretatio n --------- <135.00 [...] Antibody Immunity Screen, ACIF.THIS TEST WAS PERFORMED AT:[facility] [id number] MERATI,MD ID Date Data Source [id number] 08/13/2020 09:40:00 AM EDT [facility] ([facility]) Name Value Range Interpretation Code Description Data Negin rce(s) Supporting Document(s) Varicella zoster virus IgG Ab [Units/volume] in Serum by Immunoassay 1888.00 [facility] ([facility] ) HEAD AND FACIAL NUMBNESS C reactive protein [Mass/volume] in Serum or Plasma by High sensitivity method Laboratory test result 0.0-5.0 [facility] ([facility]) HEAD AND FACIAL NUMBNESS Varicella zoster virus IgM Ab [Units/volume] in Serum by Immunoassay Laboratory test result [facility] ([facility] ) HEAD AND FACIAL NUMBNESS ID Date Data Source [id number] 08/13/2020 09:40:00 AM EDT [facility] ([facility]) Name Value Range Interpretation Code Description Data Negin rce(s) Supporting Document(s) Urea nitrogen [Mass/volume] in Serum or Plasma 6 mg/dL 9-23 [facility] ([facility]) HEAD AND FACIAL NUMBNESS Sodium [Moles/volume] in Serum or Plasma 134 mmol/L 132-146 [facility] ([facility]) HEAD AND FACIAL NUMBNESS Potassium [Moles/volume] in Serum or Plasma 4.4 mmol/L 3.5-5.5 [facility] ([facility]) HEAD AND FACIAL NUMBNESS Chloride [Moles/volume] in Serum or Plasma 104 mmol/L 99-109 [facility] ([facility]) HEAD AND FACIAL NUMBNESS Anion gap in Serum or Plasma 6 mmol/L 8-16 [facility] ([facility]) HEAD AND FACIAL NUMBNESS Carbon dioxide, total [Moles/volume] in Serum or Plasma 28 mmol/L 20 -31 [facility] ([facility]) HEAD AND FACIAL NUMBNESS Creatinine 0.8 mg/dL 0.5-1.1 [facility] HEAD AND FACIAL NUMBNESS Glucose [Mass/volume] in Serum or Plasma 111 mg/dL 74-106 [facility] ([facility]) HEAD AND FACIAL NUMBNESS Alanine aminotransferase [Enzymatic acti vity/volume] in Serum or Plasma by With P-5'-P 17 U/L 10-49 [facility] ([facility] HEAD AND FACIAL NUMBNESS Glomerular filtration rate/1.73 sq M.pre dicted [Volume Rate/Area] in Serum or Plasma Laboratory test result [facility] HEAD AND FACIAL NUMBNESS Alkaline phosphatase [Enzymatic activity/volume] in Serum or Plasma 114 U/L 45-129 [facility] ([facility]) HEAD AND FACIAL NUMBNESS Aspartate aminotransferase [Enzymatic ac tivity/volume] in Serum or Plasma by With P-5'-P 8 U/L 0-33 [facility] ([facility]) HEAD AND FACIAL NUMBNESS Calcium [Mass/volume] in Serum or Plasma 9.0 mg/dL 8.5-10.1 [facility] ([facility]) HEAD AND FACIAL NUMBNESS Albumin [Mass/volume] in Serum or Plasma by Bromocresol purple (BCP) dye binding method 3.7 g/dL 3.2-4.8 [facility] ([facility]) HEAD AND FACIAL NUMBNESS Bilirubin.total [Mass/volume] in Serum or Plasma 0.7 mg/dL 0.3-1.2 [facility] HEAD AND FACIAL NUMBNESS Protein [Mass/volume] in Serum or Plasma 7.2 g/dL 5.7-8.2 [facility] HEAD AND FACIAL NUMBNESS ID Date Data Source [id number] 08/13/2020 09:40:00 AM EDT [facility] ([facility]) Name Value Range Interpretation Code Description Data Negin rce(s) Supporting Document(s) Erythrocyte sedimentation rate by Westergren method 1 [facility] 0-20 [facility] HEAD AND FACIAL NUMBNESS ID Date Data Source [id number] 08/13/2020 09:40:00 AM EDT [facility] ([facility] Name Value Range Interpretation Code Description Data Negin rce(s) Supporting Document(s) Leukocytes [#/volume] in Blood by Automated count 8.4 10*3/uL 4.45-10 .71 [facility] HEAD AND FACIAL NUMBNESS Hemoglobin [Moles/volume] in Blood 16.9 g/dL 13-18 [facility] HEAD AND FACIAL NUMBNESS Erythrocytes [#/volume] in Blood by Automated count 5.36 10*6/uL 4.3- 6.1 [facility] ([facility]) HEAD AND FACIAL NUMBNESS Erythrocyte mean corpuscular volume [Ent itic volume] in Cord blood by Automated count 91 fL 80-96 [facility] ([facility]) HEAD AND FACIAL NUMBNESS Hematocrit [Volume Fraction] of Blood by Automated count 48.9 % 4 2-52 [facility] ([facility]) HEAD AND FACIAL NUMBNESS Erythrocyte mean corpuscular hemoglobin concentration [Mass/volume] in Cord blood 35 g/dL 33-37 [facility] ([facility]) HEAD AND FACIAL NUMBNESS Erythrocyte mean corpuscular hemoglobin [Entitic mass] by Au tomated count 32 pg 27-31 [facility] ([facility]) HEAD AND FACIAL NUMBNESS Platelets [#/volume] in Blood by Automated count 193 10*3/uL 130-472 [facility] HEAD AND FACIAL NUMBNESS Erythrocyte distribution width [Entitic volume] by Automated count 12 % 11-15 [facility] ([facility]) HEAD AND FACIAL NUMBNESS Platelet mean volume [Entitic volume] in Blood 9.1 fL 9.1-13.1 [facility] ([facility]) HEAD AND FACIAL NUMBNESS Neutrophils/100 leukocytes in Blood by Automated count 76.5 % 41- 77 [facility] ([facility]) HEAD AND FACIAL NUMBNESS Lymphocytes/100 leukocytes in Blood by Automated count 13.8 % 14- 46 [facility] ([facility]) HEAD AND FACIAL NUMBNESS Neutrophils [#/volume] in Blood by Automated count 6.4 U 1.7-7.6 [facility] ([facility]) HEAD AND FACIAL NUMBNESS Lymphocytes [#/volume] in Blood by Automated count 1.2 U 0.6-4.6 [facility] ([facility]) HEAD AND FACIAL NUMBNESS Monocytes/100 leukocytes in Blood by Automated count 8.0 % 4-12 [facility] ([facility]) HEAD AND FACIAL NUMBNESS Monocytes [#/volume] in Blood by Automated count 0.7 U 0.2-1.2 [facility] ([facility]) HEAD AND FACIAL NUMBNESS Eosinophils/100 leukocytes in Blood by Automated count 0.8 % 0-7 [facility] ([facility]) HEAD AND FACIAL NUMBNESS Eosinophils [#/volume] in Blood by Automated count 0.1 U 0.0-0.5 [facility] ([facility]) HEAD AND FACIAL NUMBNESS Basophils/100 leukocytes in Blood by Automated count 0.5 % 0.4-1 .3 [facility] ([facility]) HEAD AND FACIAL NUMBNESS Basophils [#/volume] in Blood by Automated count 0.0 U 0.0-0.2 [facility] ([facility]) HEAD AND FACIAL NUMBNESS Nucleated Red Blood Cell 0 % [facility] ([facility]) HEAD AND FACIAL NUMBNESS Laboratory test finding (navigational concept) 0 U [facility] ([facility]) HEAD AND FACIAL NUMBNESS Immature granulocytes [Presence] in Blood by Automated count 0.4 0-2 [facility] ([facility]) HEAD AND FACIAL NUMBNESS Immature granulocytes [#/volume] in Blood by Automated count 0.0 U 0-0.1 [facility] ([facility]) HEAD AND FACIAL NUMBNESS Manual Differential panel - Blood Laboratory test result [facility] HEAD AND FACIAL NUMBNESS ID Date Data Source [id number] 08/13/2020 09:19:00 AM EDT [facility] ED Physician Documentation NAME: DAVION RENNER : 1955 AGE: 64 MR#: [id number] SERVICE DATE: 08/13/[address]: Rush Collins MD PRIMARY CARE DR: Rashaun Morales M.D. ROOM#: [facility] Chief Complaint: HEENT Stated Complaint: HEAD [...] rce(s) Supporting Document(s) ID Date Data Source [id number] 01/26/2020 07:43:00 AM EST [facility] ([facility]) Name Value Range Interpretation Code Description Data Negin rce(s) Supporting Document(s) Cholesterol [Mass/volume] in Serum or Plasma 158 mg/dL 131-200 [facility] ([facility]) Triglyceride [Mass/volume] in Serum or Plasma 165 mg/dL 30-150 [facility] ([facility]) Cholesterol in LDL [Mass/volume] in Serum or Plasma by calcu lation 83 CALC 50-159 [facility] ([facility]) Cholesterol in HDL [Mass/volume] in Serum or Plasma 42 mg/dL 35-60 [facility] ([facility]) ID Date Data Source [id number] 01/26/2020 07:43:00 AM EST [facility] ([facility]) Name Value Range Interpretation Code Description Data Negin rce(s) Supporting Document(s) Urea nitrogen [Mass/volume] in Serum or Plasma 13 mg/dL 7-18 [facility] ([facility]) Glucose [Mass/volume] in Serum or Plasma 110 mg/dL 74-99 [facility] ([facility]) 100-125 mg/dL PRE-DIABETES/FASTING >126 mg/dL DIABETES/FASTING Potassium [Moles/volume] in Serum or Plasma 4.2 meq/L 3.5-5.1 [facility] ([facility]) Sodium [Moles/volume] in Serum or Plasma 142 meq/L 136-145 [facility] ([facility]) Creatinine 1.0 mg/dL 0.6-1.3 [facility] ([facility]) Carbon dioxide, total [Moles/volume] in Serum or Plasma 33 meq/L 21 -32 [facility] ([facility]) Chloride [Moles/volume] in Serum or Plasma 104 meq/L 98-107 [facility] ([facility]) Calcium [Mass/volume] in Serum or Plasma 8.8 mg/dL 8.5-10.1 [facility] Total Bilirubin 0.8 mg/dL 0.2-1.0 [facility] ([facility]) Aspartate aminotransferase [Enzymatic activity/volume] in Serum or Plasma 18 U/L 15-37 [facility] ([facility] ) Alkaline phosphatase isoenzyme [Units/volume] in Serum or Pl asma 101 mg/dL 46-116 [facility] ([facility]) Alanine aminotransferase [Enzymatic activity/volume] in Seru m or Plasma 41 U/L 12-78 [facility] ([facility]) Albumin [Mass/volume] in Serum or Plasma 3.7 g/dL 3.4-5.0 [facility] ([facility]) Proteinase 3 Ab [Units/volume] in Serum 6.5 g/dL 6.4-8.2 [facility] ([facility]) A/G Ratio 1.32 CALC 1.00-1.90 [facility] ([facility]) Glomerular filtration rate/1.73 sq M pre dicted among non-blacks [Volume Rate/Area] in Serum or Plasma by Creatinine-based formula (MDRD) Laboratory test result [facility] Glomerular filtration rate/1.73 sq M pre dicted among blacks [Volume Rate/Area] in Serum or Plasma by Creatinine-based formula (MDRD) Laboratory test result [facility] ([facility]) <content>CHRONIC KIDNEY DISEASE STAGING PER NKF</content>
<content></content>
<content>STAGE I & II GFR >= 60 NORMAL TO MILDLY DECREASED</content>
<content>STAGE III GFR 30-59 MODERATELY DECREASED</content>
<content>STAGE IV GFR 15-29 SEVERELY DECREASED</content>
<content>STAGE V GFR <15 VERY LITTLE GFR LEFT</content>
<content>ESRD GFR <15 ON CEMENT LOADER</content>
<content></content> ID Date Data Source [id number] 01/26/2020 07:43:00 AM EST [facility] ([facility]) Name Value Range Interpretation Code Description Data Negin rce(s) Supporting Document(s) Creatine kinase [Enzymatic activity/volume] in Serum or Plasma 58 U /L 39-308 [facility] ID Date Data Source [id number] 11/25/2019 08:18:00 AM EDT [facility] ([facility]) Name Value Range Interpretation Code Description Data Negin rce(s) Supporting Document(s) Cholesterol [Mass/volume] in Serum or Plasma 255 mg/dL 131-200 [facility] ([facility]) Triglyceride [Mass/volume] in Serum or Plasma 189 mg/dL 30-150 [facility] ([facility]) Cholesterol in HDL [Mass/volume] in Serum or Plasma 35 mg/dL 35-60 [facility] ([facility]) Cholesterol in LDL [Mass/volume] in Serum or Plasma by calcu lation 182 CALC 50-159 [facility] ([facility]) ID Date Data Source [id number] 11/25/2019 08:18:00 AM EDT [facility] ([facility]) Name Value Range Interpretation Code Description Data Negin rce(s) Supporting Document(s) Urea nitrogen [Mass/volume] in Serum or Plasma 10 mg/dL 7-18 [facility] ([facility]) Glucose [Mass/volume] in Serum or Plasma 104 mg/dL 74-99 [facility] ([facility]) 100-125 mg/dL PRE-DIABETES/FASTING >126 mg/dL DIABETES/FASTING Sodium [Moles/volume] in Serum or Plasma 142 meq/L 136-145 [facility] ([facility]) Creatinine 1.0 mg/dL 0.6-1.3 [facility] Chloride [Moles/volume] in Serum or Plasma 104 meq/L 98-107 [facility] ([facility]) Potassium [Moles/volume] in Serum or Plasma 4.6 meq/L 3.5-5.1 [facility] ([facility]) Calcium [Mass/volume] in Serum or Plasma 9.0 mg/dL 8.5-10.1 [facility] ([facility]) Carbon dioxide, total [Moles/volume] in Serum or Plasma 31 meq/L 21 -32 [facility] ([facility]) Total Bilirubin 0.6 mg/dL 0.2-1.0 [facility] ([facility]) Alkaline phosphatase isoenzyme [Units/volume] in Serum or Pl asma 103 mg/dL 46-116 [facility] ([facility]) Aspartate aminotransferase [Enzymatic activity/volume] in Serum or Plasma 15 U/L 15-37 [facility] ([facility] ) Alanine aminotransferase [Enzymatic activity/volume] in Seru m or Plasma 30 U/L 12-78 [facility] ([facility]) Proteinase 3 Ab [Units/volume] in Serum 6.9 g/dL 6.4-8.2 [facility] ([facility]) Albumin [Mass/volume] in Serum or Plasma 3.7 g/dL 3.4-5.0 [facility] ([facility]) A/G Ratio 1.16 CALC 1.00-1.90 [facility] ([facility]) Glomerular filtration rate/1.73 sq M pre dicted among non-blacks [Volume Rate/Area] in Serum or Plasma by Creatinine-based formula (MDRD) Laboratory test result [facility] ([facility] ) Glomerular filtration rate/1.73 sq M pre dicted among blacks [Volume Rate/Area] in Serum or Plasma by Creatinine-based formula (MDRD) Laboratory test result [facility] ([facility]) <content>CHRONIC KIDNEY DISEASE STAGING PER NKF</content>
<content></content>
<content>STAGE I & II GFR >= 60 NORMAL TO MILDLY DECREASED</content>
<content>STAGE III GFR 30-59 MODERATELY DECREASED</content>
<content>STAGE IV GFR 15-29 SEVERELY DECREASED</content>
<content>STAGE V GFR <15 VERY LITTLE GFR LEFT</content>
<content>ESRD GFR <15 ON CEMENT LOADER</content>
<content></content> ID Date Data Source [id number] 11/25/2019 08:18:00 AM EDT [facility]) Name Value Range Interpretation Code Description Data Negin rce(s) Supporting Document(s) Prostate specific Ag [Mass/volume] in Serum or Plasma 1.41 ng/mL [facility] ([facility]) This assay was performed on the Siemens Dimension EXL using the B- Galactosidase/CPRG methodology and should not be compared interchangeably with other methods. The PSA should not be used alone as a screening test for the presence or absence of malignant disease. ID Date Data Source [id number] 11/25/2019 08:18:00 AM EDT [facility]) Name Value Range Interpretation Code Description Data Negin rce(s) Supporting Document(s) Erythrocytes [#/volume] in Blood by Automated count 5.42 x10*6/UL 4.2 0-6.30 [facility] Leukocytes [#/volume] in Blood by Automated count 7.7 x10*3/UL 4.1-10 .9 [facility] ([facility]) Hematocrit [Volume Fraction] of Blood by Automated count 49.4 % 3 7.0-51.0 [facility] ([facility]) Hemoglobin [Mass/volume] in Blood 17.2 g/dL 12.0-18.0 [facility] ([facility]) MCH 31.7 pg 26.0-32.0 [facility]) MCV 91.2 fL 80.0-97.0 [facility] Erythrocyte distribution width [Ratio] by Automated count 12.6 % 11.6-13.7 [facility] ([facility]) MCHC 34.8 g/dL 31.0-38.0 [facility] Platelets [#/volume] in Blood by Automated count 171 x10*3/UL 140-440 [facility] ([facility]) MPV 8.7 FL 7.8-11.0 [facility]) Lymph % 23.8 % 10.0-58.5 [facility] Mid % 7.3 % 1.7-9.3 [facility] Lymph # 1.8 x10*3/UL 0.6-4.1 [facility] ([facility]) Neut % 68.9 % 37.0-92.0 [facility] Mid # 0.6 x10*3/UL 0.1-0.6 [facility] ([facility]) Neut # 5.3 x10*3/UL 2.0-7.8 [facility] ([facility]) Procedure Social History Code Duration Value Status Description Data Source(s ) Alcohol intake 11/22/2020 12:00:00 AM EDT Ex-drinker (finding) comp leted Ex- drinker (finding) [facility] Tobacco use and exposure 11/22/2020 12:00:00 AM EDT Never used co mpleted Never used [facility] Smoking 11/22/2020 12:00:00 AM EDT Former smoker completed Former smoker [facility] Alcohol intake 11/09/2020 12:00:00 AM EDT Ex-drinker (finding) comp leted Ex- drinker (finding) [facility] Alcohol intake 10/21/2020 12:00:00 AM EDT Ex-drinker (finding) comp leted Ex- drinker (finding) [facility] Alcohol intake 10/14/2020 12:00:00 AM EDT Ex-drinker (finding) comp leted Ex- drinker (finding) [facility] 08/13/2020 09:20:00 AM EDT Current every day smoker co mpleted Current every day smoker [facility] Smoking 08/13/2020 09:20:00 AM EDT Current every day smoker co mpleted Current every day smoker [facility] 08/13/2020 09:20:00 AM EDT Current every day smoker co mpleted Current every day smoker [facility] 07/23/2020 12:00:00 AM EDT Smoker completed Smoker [facility] 07/23/2020 12:00:00 AM EDT Current smoker completed Curre nt smoker [facility] Vital Signs ID Date Data Source [id number] Name Value Range Interpretation Code Description Data Source(s) Diastolic blood pressure 60 mm[Hg] 60 mm[Hg] [facility] ([facility]) Body weight 163.00 [lb_av] 163.00 [lb_av] [facility] ([facility]) Body mass index (BMI) [Ratio] 25.0 kg/m2 25.0 k g/m2 [facility] ([facility]) Heart rate 62 /min 62 /min [facility] ([facility]) Body height 67.75 [in_i] 67.75 [in_i] [facility] ([facility]) 5'7.75" 4 Systolic blood pressure 100 mm[Hg] 100 mm[Hg] [facility] ([facility]) Body weight 188.00 [lb_av] 188.00 [lb_av] [facility] ([facility]) Body mass index (BMI) [Ratio] 28.8 kg/m2 28.8 k g/m2 [facility] ([facility]) Heart rate 85 /min 85 /min [facility] ([facility]) Body height 67.75 [in_i] 67.75 [in_i] [facility] ([facility]) 5'7.75" 4 Systolic blood pressure 138 mm[Hg] 138 mm[Hg] [facility] Diastolic blood pressure 82 mm[Hg] 82 mm[Hg] [facility] ([facility]) Body mass index (BMI) [Ratio] 29.3 kg/m2 29.3 k g/m2 [facility] ([facility]) Systolic blood pressure 132 mm[Hg] 132 mm[Hg] [facility] ([facility]) Diastolic blood pressure 66 mm[Hg] 66 mm[Hg] [facility] ([facility]) Heart rate 90 /min 90 /min [facility] ([facility]) Body height 67.75 [in_i] 67.75 [in_i] [facility] ([facility]) 5'7.75" 4 Body weight 191.00 [lb_av] 191.00 [lb_av] [facility] ([facility]) Oxygen saturation in Arterial blood by Pulse oximetry 99 % 99 % [facility] ([facility]) Body weight 199.00 [lb_av] 199.00 [lb_av] [facility] ([facility]) Systolic blood pressure 134 mm[Hg] 134 mm[Hg] [facility] ([facility]) Diastolic blood pressure 90 mm[Hg] 90 mm[Hg] [facility] ([facility]) Body height 67.75 [in_i] 67.75 [in_i] [facility] ([facility]) 5'7.75" 4 Body mass index (BMI) [Ratio] 30.5 kg/m2 30.5 k g/m2 [facility] ([facility]) Heart rate 72 /min 72 /min [facility] ([facility]) Body height 67.75 [in_i] 67.75 [in_i] [facility] ([facility]) 5'7.75" 4 Body weight 203.00 [lb_av] 203.00 [lb_av] [facility] ([facility]) Body mass index (BMI) [Ratio] 31.1 kg/m2 31.1 k g/m2 [facility] ([facility]) Systolic blood pressure 130 mm[Hg] 130 mm[Hg] [facility] ([facility]) Diastolic blood pressure 78 mm[Hg] 78 mm[Hg] [facility] ([facility]) ID Date Data Source [id number] 10/07/2020 09:57:01 AM [facility] Name Value Range Interpretation Code Description Data Source(s) TRANSFER FROM [facility] ID Date Data Source [id number] [facility] Name Value Range Interpretation Code Description Data Source(s) WEIGHT RECORDED 169 lb 169 lb [facility] Body height Measured 68 in 68 in [facility] ID Date Data Source [id number] 09/13/2020 10:46:49 AM [facility] Name Value Range Interpretation Code Description Data Source(s) TRANSFER FROM [facility] ID Date Data Source [id number] 09/22/2020 11:27:18 AM [facility] Name Value Range Interpretation Code Description Data Source(s) WEIGHT RECORDED 175.05 lb 175.05 lb [facility] Body height Measured 68 in 68 in [facility] TRANSFER FROM [facility] Patient Treatment Plan of Care Planned Activity Planned Date Details Description Data Source (s) Erythromycin 0.005 MG/MG Ophthalmic Ointment 10/21/2020 12:00:00 AM [facility] Proparacaine hydrochloride 5 MG/ML Ophthalmic Solution 10/14/2020 01:30:00 PM [facility] ospital Erythromycin 0.005 MG/MG Ophthalmic Ointment 10/07/2020 12:00:00 PM [facility] Epinephrine 0.01 MG/ML / Lidocaine Hydrochloride 10 MG /ML Injectable Solution 10/07/2020 10:30:00 AM [facility] fluorescein-benoxinate (FLURATE) 0.25-0.4 % ophthalmic solution 1 drop 10/03/2020 02:30:00 PM [facility] Phenylephrine Hydrochloride 25 MG/ML Ophthalmic Soluti on 10/03/2020 02:30:00 PM [facility] ospital Tropicamide 10 MG/ML Ophthalmic Solution 10/03/2020 02:30:00 PM [facility] Ofloxacin 3 MG/ML Ophthalmic Solution 10/03/2020 12:00:00 AM [facility] Erythromycin 0.005 MG/MG Ophthalmic Ointment 10/02/2020 12:00:00 AM [facility] pantoprazole 40 MG Delayed Release Oral Tablet 09/15/2020 12:00:00 AM [facility] Diclofenac Sodium 0.01 MG/MG Topical Gel 09/15/2020 12:00:00 AM [facility]
--- NOTE | 2021-01-05 17:15 | REP ---
INDICATION: Cancer, right leg swelling COMPARISON: None. TECHNIQUE: Tomlin scale and color Doppler evaluation using linear high frequency transducer. FINDINGS: Ultrasound examination of the right lower extremity demonstrates acute nonocclusive thrombus extending from the proximal femoral vein to the popliteal vein followed by occlusive thrombus in the visualized calf veins below the popliteal vein. Contralateral left common femoral vein appears patent. IMPRESSION: Significant acute occlusive and nonocclusive thrombus extending from the proximal femoral vein through the calf veins. <Electronically signed by Donell Azul > 01/05/21 2088
[2021-01-05] MEDS ORDERED: LORazepam 0.5 MG TAB PEG PRN (17:50)
[2021-01-05] MEDS ORDERED: oxyCODONE 5MG TAB PEG PRN (17:50)
[2021-01-05] MEDS ORDERED: ONDANSETRON 4MG/2ML VIAL IV PRN (17:50)
[2021-01-05] MEDS: D5W/0.45% SODIUM CHLORIDE 1,000 ML IV SCH (18:18)
[2021-01-05] MEDS ORDERED: OLANZapine 5 MG TAB PEG SCH (21:00)
[2021-01-05] MEDS ORDERED: GABAPENTIN 100 MG CAP PEG SCH (21:00)
[2021-01-05] MEDS ORDERED: OMEPRAZOLE SUSPENSION 20MG 10ML ORAL SYRINGE GT SCH (21:00)
[2021-01-05] MEDS ORDERED: SODIUM CHLORIDE 1 GM TAB PEG SCH (21:00)
--- NOTE | 2021-01-05 21:22 | HPEPDOC ---
General Date of Admission Jan 05, 2021 at 15:35 Date of Service: Jan 05, 2021 Chief Complaint The patient is a 65-year-old male admitted with a reason for visit of Covid- 19,Dehydration,Hypotensive Episode. Source: Patient, Family, RN/MD History of Present Illness Mr. Mae is a 65 year old male with metastatic adenocarcinoma of esophagus and dysphagia s/p PEG here with hypotension and is also COVID positive. provided most of the history. Both and patient were vaccinated with [employer]. The second vaccine was on 06/14/2020. The recently had mild rhinorrhea and went to urgent care to be found COVID positive. She self quarantined for 10 days which completed on Saturday. is feeling well. Otherwise, patient had 10 rounds of full brain radiation and was planning for chemotherapy to start next week. Patient was seen by Dr. Fuentes on 01/03/21 and was noted to be hypotensive. He was given 2L of fluid. Today, [facility] visited patient, and he was hypotensive. Patient was taken to the ER. On arrival, patient's blood pressure was 71/50. He was given 30mL/kg of fluid, ceftriaxone, and dexamethasone. Patient's blood pressure responded well to the fluids. tells me that patient struggles with diarrhea. He did have radiation of the stomach in Oct. Patient's diarrhea seems to be better with the 2Cal tube feed, but he can only take 1 box. If he takes more than 1 box, the tube feeds would "run right through him". He is also getting free water flushes. The tube feeds are currently by gravity. They were planning to get a pump so they can do no cturnal feedings. Otherwise, patient occasionally has nausea. If he vomits, it would be mucus. When I saw patient, he was feeling better. He had already finished the fluid boluses and blood pressure stable. No hypoxia or dyspnea. CXR clear. He does not have any COVID symptoms at time. Patient will be admitted for hypotension secondary to dehydration, diarrhea, and poor intake. Home Medications Scheduled Dexamethasone (Dexamethasone) 2 Mg Tablet, 2 MG PO DAILY, (Reported) Gabapentin (Gabapentin) 250 Mg/5 Ml Solution, 10 ML TF QHS, (Reported) Olanzapine (Olanzapine) 5 Mg Tablet, 5 MG PO QPM, (Reported) Omeprazole (Omeprazole) 20 Mg Capsule.dr, 20 MG TF QHS, (Reported) PUT CONTENTS OF CAPSULE IN APPLESAUCE Potassium Chloride (Potassium Chloride) 20 Meq/15 Ml Liquid, 15 ML PO BID, (Reported) Prochlorperazine Maleate (Prochlorperazine Maleate) 10 Mg Tablet, 10 MG PO BID, (Reported) Sertraline Hcl (Sertraline HCl) 50 Mg Tablet, 50 MG PO DAILY, (Reported) Sodium Chloride (Sodium Chloride) 1 Gm Tablet, 1 TAB PO BID fentaNYL (fentaNYL) 50 Mcg Patch.td72, 1 PATCH TOP Q3RD, (Reported) LEFT ARM Scheduled PRN Guaifenesin/Dextromethorphan (Mucinex Fast-Max Dm Max Liquid) 180 Ml Liquid, 20 ML PO BID PRN for cough or cold, (Reported) Loperamide HCl (Imodium A-D) 2 Mg Capsule, 2 CAP PO for DIARRHEA, (Reported) Lorazepam (Lorazepam) 2 Mg/1 Ml Oral.conc, 0.25 ML TF QID PRN for ANXIETY/AGIT ATION, (Reported) Ondansetron (Ondansetron Odt) 4 Mg Tab.rapdis, 8 MG PO BID PRN for NAUSEA OR VOMITING, (Reported) Oxycodone HCl (Oxycodone HCl) 5 Mg/5 Ml Solution, 15 ML PO Q6H PRN for PAIN LEVEL 5-10, (Reported) Allergies Coded Allergies: No Known Allergies (Verified Allergy, Unknown, 09/08/20) Past Medical History Medical History 1. 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 GERD Surgical History 1. PEG Family History Father: History of penile cancer and heart disease Mother: History of diabetes mellitus Sister: History of breast cancer Social History * Smoker: former Smoker Alcohol: Denies Drugs: marijuana (Medical marijuana) A-FIB/CHADSVASC A-FIB History Current/History of A-Fib/PAF?: No Review of Systems Constitutional: Denies: Chills, Fever Eyes: Reports: Other (Left eye half stitched shut to protect from scratching eye) ENT: Denies: Sore Throat Skin: Denies: Rash Pulmonary: Reports: Cough; Denies: Dyspnea Cardiovascular: Denies: Chest Pain Gastrointestinal: Reports: Nausea, Vomiting (mucus), Abdominal Pain (around PEG tube site), Diarrhea Genitourinary: Denies: Dysuria Hematologic: Reports: Bruising (from falls) Musculoskeletal: Reports: Back Pain Neurological: Denies: Numbness Psych: Reports: Anxiety, Depression Physical Examination General Exam: Positive: Alert, Cooperative Eye Exam: Positive: EOMI; Negative: Sclera icteric ENT Exam: Positive: Atraumatic Neck Exam: Positive: Supple Chest Exam: Positive: Clear to auscultation Heart Exam: Positive: Rate Normal, Regular Rhythm Abdomen Exam: Positive: Normal bowel sounds, Soft; Negative: Tenderness Extremity Exam: Positive: Edema (right leg more swollen than left) Skin Exam: Negative: Rash (No rash around PEG tube site) Neuro Exam: Positive: Cranial Nerves 3-12 NL Psych Exam: Positive: Mood NL Vital Signs Vital Signs Date Time Temp Pulse Resp B/P (MAP) Pulse Ox O2 Delivery O2 Flow Rate FiO2 01/05/21 19:30 89 18 97 Room Air 01/05/21 19:15 118/77 (91) 01/05/21 18:15 97.4 Laboratory Data Labs 24H Laboratory Tests 2 01/05/21 11:49: Immature Granulocyte % (Auto) 0.8, Neutrophils (%) (Auto) 78.8H, Lymphocytes (%) (Auto) 9.1L, Monocytes (%) (Auto) 7.9, Eosinophils (%) (Auto) 3.2H, Basophils (%) (Auto) 0.2, Neutrophils # (Auto) 4.0, Lymphocytes # (Auto) 0.5L, Monocytes # (Auto) 0.4, Eosinophils # (Auto) 0.2, Basophils # (Auto) 0.0, Nucleated Red Blood Cells % (auto) 0.0, Immature Platelet Fraction 3.5, Prothrombin Time 15.8H, Prothromb Time International Ratio 1.22, Activated Partial Thromboplast Time 46.2H, Anion Gap 7L, Glomerular Filtration Rate > 60.0, Calcium Level 8.0L, Total Bilirubin 0.7, Direct Bilirubin 0.3H, Aspartate Amino Transf (AST/SGOT) 29, Alanine Aminotransferase (ALT/SGPT) 20, Alkaline Phosphatase 193H, Total Creatine Kinase 32L, Creatine Kinase MB 1.2, Creatine Kinase MB Relative Index 3.75, Troponin I 0.03, Total Protein 5.0L, Albumin 2.1L, Albumin/Globulin Ratio 0.7, Lipase 22L 01/05/21 12:04: Urine Color YELLOW, Urine Appearance CLEAR, Urine pH 6.0, Urine Specific [place] 1.012, Urine Protein NEGATIVE, Urine Glucose (UA) NEGATIVE, Urine Ketones NEGATIVE, Urine Blood NEGATIVE, Urine Nitrite NEGATIVE, Urine Bilirubin NEGATIVE, Urine Urobilinogen 4.0H, Urine Leukocyte Esterase NEGATIVE, Urine WBC (Auto) 2, Urine RBC (Auto) 0, Urine Hyaline Casts (Auto) 0, Urine Bacteria (Auto) NEGATIVE, Urine Squamous Epithelial Cells 0, Urine Mucus (Auto) SMALL, Urine Sperm (Auto) , Lactic Acid Level 1.2, Coronavirus (COVID-19)(PCR) POSITIVEA, Influenza Type A (RT-PCR) NEGATIVE, Influenza Type B (RT-PCR) NEGATIVE, Respiratory Syncytial Virus (PCR) NEGATIVE CBC/BMP Laboratory Tests 01/05/21 11:49 Microbiology Microbiology 01/05/21 Blood Culture, Received Pending 01/05/21 Blood Culture, Received Pending Assessment/Plan Mr. Mae is a 65 year old male with metastatic adenocarcinoma of esophagus and dysphagia s/p PEG here with hypotension and is also COVID positive. Patient's hypotension is most likely due to dehydration, poor intake, and diarrhea. They use 2Cal to slow down the diarrhea, but only 1 box. Will put patient on IVF and order dietary consultation to help with tube feeds and free water flushes. Plan / VTE VTE Prophylaxis Ordered?: Yes Plan Plan 1. Hypotension 2/2 dehydration -Will order dietitian consultation to help with tube feeds and free watch flushes -IVF 2. DVT -Patient had high risk for DVT given history of cancer -US lower extremity demonstrates right proximal femoral occasion -Full dose Lovenox 3. Dysphagia s/p PEG tube -Order dietitian consultation to help with tube feeds -Medication through PEG tube - does give Pedialyte orally sometimes -Since patient is not getting tube feeds tonight, will discontinue sodium tablets 4. COVID positive -Patient had 2 Pfizer vaccine. Last in June 14, 2020 -No COVID symptoms -Supportive care and quarantine 5. Metastatic esophageal adenocarcinoma -Continue pain regimen 6. DVT ppx -Lovenox Disposition: Pending dietitian consultation. Patient may benefit from kangaroo pump prescription SADE THOMSON DO Jan 05, 2021 21:22
[2021-01-05 21:34] LABS: C REACTIVE PROTEIN QUANTITATIV 5.35 MG/DL (0.00-0.30); FERRITIN 1798 NG/ML (26-388); LDH LACTATE DEHYDROGENASE 549 U/L (87-241); MAGNESIUM LEVEL 1.7 MG/DL (1.8-2.4); NT-PRO BNP 605 PG/ML (<125)
[2021-01-05 23:35] LABS: FIBRINOGEN 192 MG/DL (268-480)
[2021-01-06 00:09] LABS: D-DIMER QUANT > 4000 ng/ml (<500)
[2021-01-06 01:33] VITALS: BP 120/75
[2021-01-06 02:00] VITALS: O2SAT 97
[2021-01-06] MEDS: PROCHLORPERAZINE 5 MG TAB (S0183) PEG SCH ×2 (02:33→08:14)
[2021-01-06] MEDS: ENOXAPARIN 60MG/0.6ML SYRINGE (J1650 PER 10MG) SC SCH ×2 (02:34→12:50)
[2021-01-06] MEDS ORDERED: SODIUM CHLORIDE 0.9% INJ 10 ML SYR IV PRN (02:55)
[2021-01-06 04:00] VITALS: BP 132/72
[2021-01-06] MEDS: D5W/0.45% SODIUM CHLORIDE 1,000 ML IV SCH (05:42)
[2021-01-06 06:22] LABS: BASO % 0.2 % (0.0-1.0); EOS # 0.1 10^3/uL (0.0-0.5); EOS % 1.4 % (0.0-3.0); HEMATOCRIT 29.6 % (42.0-52.0); HEMOGLOBIN 9.9 g/dl (13.5-17.5); LYMPH # 0.6 10^3/uL (1.5-5.0); LYMPH % 11.8 % (24.0-44.0); MEAN CORPUSCULAR HGB CONC 33.4 g/dl (32.0-36.5); MEAN CORPUSCULAR VOLUME 95.8 fl (80.0-96.0); MONO # 0.4 10^3/uL (0.0-0.8); MONO % 8.7 % (2.0-8.0); NEUTROPHILS # 3.8 10^3/uL (1.5-8.5); NEUTROPHILS % 76.9 % (36.0-66.0); RED BLOOD COUNT 3.09 10^6/uL (4.30-6.10); WHITE BLOOD COUNT 4.9 10^3/uL (4.0-10.0)
[2021-01-06 06:26] LABS: PLATELET COUNT, AUTOMATED 77 10^3/uL (150-450)
[2021-01-06 06:40] LABS: BLOOD UREA NITROGEN 9 MG/DL (7-18); CALCIUM LEVEL 7.7 MG/DL (8.8-10.2); CARBON DIOXIDE LEVEL 27 MEQ/L (21-32); CHLORIDE LEVEL 101 MEQ/L (98-107); CREATININE FOR GFR 0.51 MG/DL (0.70-1.30); GLOMERULAR FILTRATION RATE > 60.0 (>49); GLUCOSE, FASTING 90 MG/DL (70-100); MAGNESIUM LEVEL 1.7 MG/DL (1.8-2.4); POTASSIUM SERUM 3.6 MEQ/L (3.5-5.1); SODIUM LEVEL 135 MEQ/L (136-145)
[2021-01-06 08:00] VITALS: BP 114/77; O2SAT 95
--- NOTE | 2021-01-06 08:06 | ECGEPIP ---
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
[2021-01-06] MEDS ORDERED: PREVNAR 13 VACCINE SYRINGE IM ONE (09:00)
[2021-01-06] MEDS ORDERED: dexameTHASONE 4 MG/ML 1ML VIAL (J1100 PER 1MG) IV SCH (09:00)
[2021-01-06] MEDS ORDERED: ENOXAPARIN 40MG/0.4ML SYRINGE (J1650 PER 10MG) SC SCH (09:00)
[2021-01-06] MEDS ORDERED: FLUBLOK(EGG FREE)(QUAD)INFLUENZA VACC 0.5ML SYRINGE 18YRS & OLDER IM ONE (09:00)
[2021-01-06] MEDS ORDERED: SODIUM CHLORIDE 0.9% INJ 10 ML SYR IV SCH (09:00)
[2021-01-06] MEDS ORDERED: SERTRALINE HCL 50 MG TAB PEG SCH (09:00)
[2021-01-06] MEDS ORDERED: ELIQ5TAB PO (11:19)
--- NOTE | 2021-01-06 17:16 | DS.PDOC ---
Discharge Summary General Date of Admission Jan 05, 2021 at 15:35 Date of Discharge 01/06/2021 Primary Care Physician: Jr Morales Collins Attending Physician: FABIÁN TARIQ DO Discharge Summary PROCEDURES PERFORMED DURING STAY: None. ADMITTING DIAGNOSES: 1. Hypotension secondary to dehydration. 2. DVT 3. Dysphagia status post PEG tube 4. COVID-19 5. Metastatic esophageal carcinoma DISCHARGE DIAGNOSES: 1. Hypotension secondary to dehydration, resolved. 2. Occlusive and nonocclusive thrombus in right proximal femoral vein 3. Dysphagia status post PEG tube 4. COVID-19 5. Metastatic esophageal carcinoma COMPLICATIONS/CHIEF COMPLAINT: Covid-19,Dehydration,Hypotensive Episode. HISTORY OF PRESENT ILLNESS: Patient is a 65-year-old male with metastatic adenocarcinoma of the esophagus and dysphagia status post PEG tube who is here with hypotension. Patient was also found to be Covid positive. Patient is provided most of the history to the admitting provider. Both the patient's and the patient were vaccinated with [employer]. Second vaccine was on 06/14/2020. Patient's recently had amount of rhinorrhea and went to urgent care was found to be Covid positive. She self quarantine for 10 days which was completed on Saturday. is feeling well. Otherwise patient has had 10 rounds of full brain radiation and is planning for chemotherapy to start next week. Patient was seen by Dr. Fuentes on and was noted to be hypotensive. Patient was given 2 L of fluid. Today [facility] visited the patient and he was also hypotensive. Patient was taken to the emergency department. On arrival the patient's blood pressure was 71/50. He was given 30 cc/kg bolus of fluid, ceftriaxone and dexamethasone. His blood pressure responded well to the fluids. tells me the patient struggles with diarrhea. He said radiation to the stomach in October. Patient's diarrhea seems to be better with TwoCal tube feeds but he can only tolerate 1 box. If he takes more than 1 box, they run right through him. Patient also gets free water flushes. The tube feeds are currently by gravity and they are trying to get a pump so they can do nocturnal feedings. Patient occasionally has nausea. Patient does not have any upper respiratory symptoms with Covid at this time. HOSPITAL COURSE: Patient did well overnight. Dietary spoke with the patient's and they devised a feeding plan to try to use TwoCal tube feeds in order to stop the patient from having diarrhea. Patient was adamant about going home stating that he knows he may not have a lot of time left and wants to spend as much time as he can at home. Patient was found to have a deep vein thrombosis in the right lower extremity. Patient was initially started on Lovenox. The patient's DVT may be secondary to the patient's cancer but could also be seconda ry to COVID-19 is COVID-19 make you hypercoagulable. Patient will be given Eliquis 10 mg twice daily for 7 days and then transition over to Eliquis 5 mg twice daily for at least 3 months. This can be followed up outpatient. Patient was feeling well and stated that he wanted to go home. Patient was otherwise feeling well and was discharged home on 01/06/2021. Patient is already set up with [facility] for home care. Home care referral was also signed. A prescription was attempted to be given for a feeding tube pump however, this was going to hold the patient's discharge and the decision was made to continue to try to obtain this outpatient. DISCHARGE MEDICATIONS: Please see below. ALLERGIES: Please see below. PHYSICAL EXAMINATION ON DISCHARGE: VITAL SIGNS: Please see below. General: Alert and oriented male patient who was sitting up in bed when I walked in. Patient did not appear to be in any acute distress. HEENT: Normocephalic, atraumatic, moist mucous membranes. Neck: No lymphadenopathy or thyromegaly Cardiac: Regular rate and rhythm, no murmurs, normal S1, normal S2 Pulm: Clear to auscultation bilaterally. No wheezes, rhonchi, rales Abd: Nondistended, nontender to palpation, normal bowel sounds Ext: Lower extremity edema in the right, no edema in the left, bilateral dorsalis pedis pulses 2/4 LABORATORY DATA: Please see below. IMAGING: Chest x-ray performed on 01/05/2021 was reported to show no acute cardiopulmonary process appreciated. Duplex lower extremity venous ultrasound on the right side performed on was reported to show significant acute occlusive and nonocclusive thrombus extending from the proximal femoral vein through the calf veins. PROGNOSIS: Fair ACTIVITY: As tolerated. DIET: Tube feeds DISCHARGE PLAN: Discharge home with home health service DISPOSITION: 06 Home Health Service. DISCHARGE INSTRUCTIONS: 1. Follow-up with your primary care provider within 3 to 5 days discharge. 2. Follow-up with oncology as scheduled 3. Continue with TwoCal tube feeds as instructed by dietary 4. Return to the emergency department symptoms worsen ITEMS TO FOLLOWUP ON ON OUTPATIENT: 1. Covid quarantine. DISCHARGE CONDITION: Stable. TIME SPENT ON DISCHARGE: 25 minutes. Vital Signs/I&Os Vital Signs Date Time Temp Pulse Resp B/P (MAP) Pulse Ox O2 Delivery O2 Flow Rate FiO2 01/06/21 08:00 95 Room Air 01/06/21 08:00 97.0 79 18 114/77 (89) I&O- Last 24 Hours up to 6 AM 01/06/21 06:00 Intake Total 240 ml Output Total 1325 ml Balance -1085 ml Laboratory Data Labs 24H Laboratory Tests 2 01/05/21 23:13: Fibrinogen 192L, D-Dimer, Quantitative > 4000H, Total Creatine Kinase 29L, Procalcitonin 0.06 01/06/21 05:10: 01/06/21 05:40: Immature Granulocyte % (Auto) 1.0, Neutrophils (%) (Auto) 76.9H, Lymphocytes (%) (Auto) 11.8L, Monocytes (%) (Auto) 8.7H, Eosinophils (%) (Auto) 1.4, Basophils (%) (Auto) 0.2, Neutrophils # (Auto) 3.8, Lymphocytes # (Auto) 0.6L, Monocytes # (Auto) 0.4, Eosinophils # (Auto) 0.1, Basophils # (Auto) 0.0, Nucleated Red Blood Cells % (auto) 0.0, Anion Gap 7L, Glomerular Filtration Rate > 60.0, Calcium Level 7.7L, Magnesium Level 1.7L CBC/BMP Laboratory Tests 01/06/21 05:40 Microbiology Microbiology 01/05/21 Blood Culture - Preliminary, Resulted No growth after 24 hours . All specim... 01/05/21 Blood Culture - Preliminary, Resulted No growth after 24 hours . All specim... Discharge Medications Scheduled Apixaban (Eliquis) 5 Mg Tablet, 5 MG PO ASDIRECTED 10 MG (2 TABS) TWICE PER DAY FOR 7 DAYS THEN 5 MG (1 TAB) TWICE PER DAY Dexamethasone (Dexamethasone) 2 Mg Tablet, 2 MG PO DAILY, (Reported) Gabapentin (Gabapentin) 250 Mg/5 Ml Solution, 10 ML TF QHS, (Reported) Olanzapine (Olanzapine) 5 Mg Tablet, 5 MG PO QPM, (Reported) Omeprazole (Omeprazole) 20 Mg Capsule.dr, 20 MG TF QHS, (Reported) PUT CONTENTS OF CAPSULE IN APPLESAUCE Potassium Chloride (Potassium Chloride) 20 Meq/15 Ml Liquid, 15 ML PO BID, (Reported) Prochlorperazine Maleate (Prochlorperazine Maleate) 10 Mg Tablet, 10 MG PO BID, (Reported) Sertraline Hcl (Sertraline HCl) 50 Mg Tablet, 50 MG PO DAILY, (Reported) Sodium Chloride (Sodium Chloride) 1 Gm Tablet, 1 TAB PO BID fentaNYL (fentaNYL) 50 Mcg Patch.td72, 1 PATCH TOP Q3RD, (Reported) LEFT ARM Scheduled PRN Guaifenesin/Dextromethorphan (Mucinex Fast-Max Dm Max Liquid) 180 Ml Liquid, 20 ML PO BID PRN for cough or cold, (Reported) Loperamide HCl (Imodium A-D) 2 Mg Capsule, 2 CAP PO for DIARRHEA, (Reported) Lorazepam (Lorazepam) 2 Mg/1 Ml Oral.conc, 0.25 ML TF QID PRN for ANXIETY/AGITATION, (Reported) Ondansetron (Ondansetron Odt) 4 Mg Tab.rapdis, 8 MG PO BID PRN for NAUSEA OR VOMITING, (Reported) Oxycodone HCl (Oxycodone HCl) 5 Mg/5 Ml Solution, 15 ML PO Q6H PRN for PAIN LEVEL 5-10, (Reported) Allergies Coded Allergies: No Known Allergies (Verified Allergy, Unknown, 09/08/20) FABIÁN TARIQ DO Jan 06, 2021 17:16
[2021-01-07] MEDS ORDERED: FENTANYL REMOVAL DOCUMENTATION MISC XX SCH (09:00)
[2021-01-07] MEDS ORDERED: fentaNYL 50 MCG/HR PATCH TOP SCH (09:00)
[2021-01-07 17:07] LABS: MYCOPLASMA PNEUMONIAE IgG 279 U/mL (0-99); MYCOPLASMA PNEUMONIAE IgM <770 U/mL (0-769)
[2021-01-09] MEDS ORDERED: OLAN1TAB16 PO (10:36)
[2021-01-09 17:07] LABS: BODY FLUID CULTURE Not indicated. (.); LEGIONELLA ANTIGEN URINE Negative (Negative); ORGANISM ID Not indicated. (.); SPECIMEN SOURCE Urine (.); URINE STREP PNEUMONIAE ANTIGEN Negative (Negative)
== END 2021-01-06 13:17 | disposition home health service (06) | DRG 640 ==
LOC: M ED 11:14 → M ED INP 15:35 → ENRESERV 01-06 00:51 → M 4MAIN 01-06 01:33
PROVIDERS: ADMIT Internal Medicine; ATTEND Family Medicine
DX: E86.0 Dehydration (principal); U07.1 COVID-19; 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, unspecified; C22.7 Other specified carcinomas of liver; C79.31 Secondary malignant neoplasm of brain; I82.411 Acute embolism and thrombosis of right femoral vein; I95.9 Hypotension, unspecified; Z92.3 Personal history of irradiation; Z79.899 Other long term (current) drug therapy; R13.10 Dysphagia, unspecified; K21.9 Gastro-esophageal reflux disease without esophagitis; Z87.891 Personal history of nicotine dependence; Z93.1 Gastrostomy status